=== PATIENT | female | born 1945 | race Caucasian/White ===

== ENCOUNTER 2019-12-06 19:03 | Emergency (ER) | payer MEDICARE, MEDICAID, SELFPAY ==
[2019-12-06 19:18] VITALS: BP 144/81; PULSE 70; RESP 16; TEMP 37.3; O2SAT 97; BMI 28.3
--- NOTE | 2019-12-06 20:05 | XR_ITS ---
EXAMINATION: XR KNEE, LEFT CLINICAL INFORMATION: Left knee pain and swelling COMPARISON: None TECHNIQUE: Four views of the left knee. FINDINGS: There is a large joint effusion. Normal alignment with no fracture. Medial compartment narrowing with small marginal osteophytes. Small marginal osteophytes also in the patellofemoral and lateral compartment. IMPRESSION: Moderate medial and mild patellofemoral/lateral compartment osteoarthritis with a large joint effusion. No acute osseous abnormality.
--- NOTE | 2019-12-06 20:45 | ED.LOWEXIN ---
HPI - Extremity Injury (Lower) General Chief Complaint: Extremity Injury, Lower Stated Complaint: Knee Pain Time Seen by Provider: 12/06/19 20:05 Source: patient Mode of arrival: ambulatory History of Present Illness HPI Narrative: 74-year-old female with a past medical history of arthritis, diabetes, hypertension complaining of acute on chronic left knee pain worsening since yesterday. Reports while ambulating yesterday felt crack. Admits to falling 2 months ago, however denies more recent falls/trauma. Reports associated tingling down leg. Denies fever, chills, weakness, inability to ambulate MD complaint: knee injury Related Data Allergies Allergy/AdvReac Type Severity Reaction Status Date / Time No Known Allergies Allergy Unverified 11/12/19 15:04 Review of Systems Review of Systems: Yes all other systems are reviewed and are negative Constitutional: Constitutional: Reports as per HPI, Denies chills and Denies fever(s) Musculoskeletal: Musculoskeletal: Reports no additional musculoskeletal complaints, Reports as per HPI, Denies deformity, Reports arthralgias, Reports joint swelling, Denies numbness, Reports stiffness and Reports tingling Integumentary/Breasts: Skin/Breast: Reports system reviewed and no additional complaints, except as docu, Reports as per HPI, Denies rash and Denies wounds Neurologic: Reports system reviewed and no additional complaints, except as documented, Reports as per HPI, Denies numbness and Reports tingling PMFSH Past Medical History Attestation statement: The following information was validated with the patient. Medical History (Updated 12/06/19 @ 20:56 by PATRICK Velázquez) Arthritis Diabetes HTN (hypertension) Surgical History (Updated 12/06/19 @ 19:21 by Cherise Boland) History of cholecystectomy Social History Social History Alcohol intake: never Smoked in Last 30 Days: No Use of substances other than those prescribed or required for medical reasons: No Advance Directives: No Advance Directives Information Provided: No Physical Exam Vital Signs: Vital Signs: Vital Signs Temp Pulse Resp BP Pulse Ox 12/06/19 19:18 99.1 F 70 16 144/81 H 97 Body Mass Index 28.3 Const: General: cooperative and healthy appearing Orientation/consciousness: patient oriented x3 Limitations: no limitations HENMT: Head: Yes normal to inspection Ears: hearing grossly normal bilaterally General nose exam: Normal external nose present Face and sinus: Yes normal facial exam Eyes: General: appearance normal, both eyes and all related structures EOM: EOMs intact bilaterally Neck: Neck: Yes normal visual inspection Resp: Effort & Inspection: normal respiratory effort Cardio: Peripheral pulses: Peripheral pulses 2+ throughout Skin: Rashes: no rashes Wounds: no wounds Neuro: General: patient oriented x3 Extrem: Other: left knee with swelling and tenderness to palpation. Decreased ROM secondary to pain. NVintact. No deformity. Ambulating at baseline with cane Course Course Course Narrative: - x-ray showing moderate medial and mild patellofemoral / lateral compartment osteoarthritis with a large joint effusion. No osseous abnormality>> patient placed in Derrick wrap in the ED to follow-up with orthopedics MDM - Extremity Injury (Lower) MDM Narrative Medical decision making narrative: likely osteoarthritis/ligamental /tendon injury. Low concern for septic joint/arthritis or fracture Medical Records Attestation: I reviewed the patient's medical records. Discharge Plan Discharge Clinical Impression: Osteoarthritis Qualifiers: Osteoarthritis location: knee Osteoarthritis type: unspecified Laterality: left Qualified Code(s): M17.12 - Unilateral primary osteoarthritis, left knee Joint effusion of knee Qualifiers: Laterality: left Qualified Code(s): M25.462 - Effusion, left knee Patient Disposition: Home, Self-Care Instructions: Osteoarthritis (ED), Swollen Knee Joint (ED) Additional Instructions: your x-ray showed osteoarthritis as well as a large joint effusion Wear Derrick wrap at home as needed for comfort /debility Ice and elevate your knee Take Tylenol and Motrin, in addition continue taking tramadol You need to follow-up with the senior procurement specialist possibly for cortisone injections/you may need an MRI down the road If symptoms persist or worsen, your unable to ambulate, or have weakness, or fall return to the ED Referrals: Marek Zheng MD [Physician] - 1 week Print Language: Vietnamese
== END 2019-12-06 21:06 | disposition home or self-care (01) ==
PROVIDERS: Emergency Provider Emergency Medicine Emergency Medical Services; PCP Internal Medicine Geriatric Medicine
DX: M17.12 Unilateral primary osteoarthritis, left knee (principal); M25.462 Effusion, left knee; E11.9 Type 2 diabetes mellitus without complications; I10 Essential (primary) hypertension
CPT/HCPCS: 73562; 99283; 99284

== ENCOUNTER 2019-12-28 12:15 | Outpatient (REF) | payer MEDICARE, MEDICAID, SELFPAY ==
--- NOTE | 2019-12-28 12:22 | XR_ITS ---
EXAMINATION: XR LUMBOSACRAL SPINE WITH OBLIQUES CLINICAL INFORMATION: Pain COMPARISON: Previous exams most recent April 2016 TECHNIQUE: AP, both oblique, and lateral views of the lumbar spine. Lateral view of the lumbosacral junction. FINDINGS: There is a 7 mm anterior subluxation of L4 with respect L5. This is unchanged. Bone alignment is otherwise normal. No fracture or dislocation is seen. There is degenerative disc disease at L5-S1. There is multilevel degenerative spondylosis. There is a severe lower lumbar spine facet arthritis. There are multiple vascular soft tissue calcifications in the pelvis. XR/XR lumbar spine 4V min IMPRESSION: Stable mild anterior subluxation of L4 with respect L5 and degenerative changes.
== END 2019-12-28 12:16 | disposition home or self-care (01) ==
LOC: HO.XRAY 12:15
PROVIDERS: Visit Provider Internal Medicine Geriatric Medicine
DX: G89.29 Other chronic pain (principal); M54.5 Low back pain
CPT/HCPCS: 72110

== ENCOUNTER 2020-01-19 15:43 | Outpatient (REF) | payer MEDICARE, MEDICAID, SELFPAY ==
--- NOTE | 2020-01-19 | MM_ITS ---
EXAMINATION: MM SCREENING DIGITAL BREAST TOMOSYNTHESIS, BILATERAL CLINICAL INFORMATION: Screening. Asymptomatic. The lifetime risk of breast cancer based on the Tyrer-Cuzick Model is 5.7%. COMPARISON: Mammography: August 11, 2018 and studies dating back to April 23, 2011 TECHNIQUE: Digital breast tomosynthesis is performed in both the craniocaudal and mediolateral oblique views along with computer-aided detection (CAD). Synthesized 2D images are generated from the tomosynthesis. FINDINGS: There are scattered areas of fibroglandular density (ACR BI-RADS breast composition Category b). There are no significant masses, abnormal calcifications, or other abnormalities. MM/MM tomosynthesis screening BI IMPRESSION: There are no significant changes from prior study. ASSESSMENT: BI-RADS 1: Negative RECOMMENDATION: Routine annual mammography screening. This patient's information was entered into a reminder system with a target due date for their next mammogram.
== END 2020-01-19 15:44 | disposition home or self-care (01) ==
LOC: HO.MAMMO 15:43
PROVIDERS: PCP Internal Medicine Geriatric Medicine; Visit Provider Internal Medicine Geriatric Medicine
DX: Z12.31 Encounter for screening mammogram for malignant neoplasm of breast (principal)
CPT/HCPCS: 77063; 77067

== ENCOUNTER 2020-05-04 14:55 | Emergency (ER) | payer MEDICARE, MEDICAID, SELFPAY ==
--- NOTE | ~2020-05-04 | XR_ITS ---
EXAMINATION: XR HAND WRIST, RIGHT CLINICAL INFORMATION: Fall, trauma, pain COMPARISON: None TECHNIQUE: Right hand and wrist are imaged together in 3 large [id number] images. A navicular view of the wrist is also included. There are a total of 4 views. FINDINGS: The fingers are mildly flexed on the AP and oblique views and superimposed on the lateral view limiting assessment. There is no visible fracture or dislocation. The ulnar variance is neutral. There are mild degenerative changes lateral carpus at triscaphe joint. The MCP joints are unremarkable. There are degenerative changes of the PIP and DIP joints with spurring and periarticular corticated ossicles. XR/XR hand wrist RT IMPRESSION: 1. No visible fracture or dislocation. The digits are superimposed limiting assessment. 2. Degenerative changes PIP and DIP joints. Mild degenerative changes lateral carpus.
[2020-05-04 15:35] VITALS: BP 122/70; BP 211/77; PULSE 70; PULSE 72; RESP 18; TEMP 36.9; O2SAT 96; BMI 29.2
--- NOTE | 2020-05-04 15:46 | ED.FALL ---
HPI - Fall General Stated Complaint: hand pain s/p fall Time Seen by Provider: 05/04/20 15:36 Source: patient, EMS and geodetic computator Mode of arrival: EMS Limitations: language barrier History of Present Illness HPI Narrative: 75-year-old female with a past medical history of arthritis, diabetes, hypertension here with complaints of right hand pain status post fall. The patient tells me that she had [place] catching herself with her right hand and right breast. Denies hitting her head or loss of consciousness. She does not she had an abrasion to the bottom part of her right hand for this morning when she woke up she had increased pain over the hand with redness and swelling. Seen at urgent care referred to the emergency department for x-rays. Patient also notes some bruising over the right breast with some mild tenderness. No chest pain, shortness of breath, cough. No headache, neck pain, back pain, vision changes, nausea, vomiting. Related Data Previous Rx's Medication Instructions Recorded doxycycline monohydrate 100 mg PO BID #14 cap 05/04/20 tramadol 50 mg PO Q8H PRN #10 tab 05/04/20 Allergies Allergy/AdvReac Type Severity Reaction Status Date / Time No Known Allergies Allergy Unverified 11/12/19 15:04 Review of Systems Review of Systems: Yes all other systems are reviewed and are negative Constitutional: Constitutional: Reports no additional constitutional complaints, Denies body ache(s), Denies chills, Denies fever(s), Denies headache(s) and Denies weakness Eyes: Eyes: Reports no additional eye complaints and Denies change in vision ENT: Reports system reviewed and no additional complaints, except as documented, Denies dizziness, Denies headache(s), Denies nasal congestion, Denies nasal discharge and Denies neck pain Cardiovascular: Cardiovascular: Reports no additional cardiovascular complaints, Denies chest pain, Denies leg edema and Denies dyspnea Respiratory: Respiratory: Reports no additional respiratory complaints, Denies cough and Denies dyspnea Gastrointestinal: Gastrointestinal: Reports no additional gastrointestinal complaints, Denies abdominal pain, Denies diarrhea, Denies nausea and Denies vomiting Genitourinary: Genitourinary: Reports no additional female genitourinary complaints and Denies urinary incontinence Musculoskeletal: Musculoskeletal: Reports no additional musculoskeletal complaints, Denies back pain, Reports arthralgias, Reports joint swelling, Denies neck pain, Denies numbness and Denies tingling Integumentary/Breasts: Skin/Breast: Reports system reviewed and no additional complaints, except as docu, Reports swelling, Reports erythema and Denies rash Neurologic: Reports system reviewed and no additional complaints, except as documented, Denies Abnormal speech present, Denies dizziness, Denies headache(s), Denies numbness, Denies tingling and Denies weakness PMFSH Past Medical History Attestation statement: The following information was validated with the patient. Source: old records reviewed and nursing notes reviewed Medical History Arthritis Diabetes HTN (hypertension) Primary osteoarthritis of knees, bilateral Surgical History History of cholecystectomy History of hysterectomy Social History Social History Alcohol intake: never Advance Directives: No Advance Directives Information Provided: Yes Physical Exam Vital Signs: Vital Signs: Last Vital Signs Temp 98.5 F 05/04/20 15:35 Pulse 72 05/04/20 15:35 Resp 18 05/04/20 15:35 BP 211/77 H 05/04/20 15:35 Pulse Ox 96 05/04/20 15:35 Body Mass Index 29.2 Const: General: cooperative, healthy appearing, comfortable and no acute distress Orientation/consciousness: patient oriented x3 Limitations: no limitations HENMT: Head: Yes normal to inspection Ears: hearing grossly normal bilaterally General nose exam: Normal external nose present Face and sinus: Yes normal facial exam Mouth: Normal oral and palatal mucosa present Throat: Yes posterior oropharynx normal Eyes: General: appearance normal, both eyes and all related structures Pupils: Equal, round and reactive pupils present Neck: Neck: Yes normal visual inspection Chest: Chest palpation & inspection: normal inspection of the chest Chest/axillae images: 1. Small area of ecchymosis with no palpable tenderness or no bony chest abnormality Resp: Effort & Inspection: normal respiratory effort Auscultation: clear to auscultation bilaterally Cardio: Rate: regular rate Rhythm: regular rhythm Peripheral pulses: Peripheral pulses 2+ throughout GI: Inspection: Yes normal to inspection Palpation (GI): Soft to palpation and nontender Auscultation: normal bowel sounds Back/Spine/Pelvis: Thoracic/Lumbar Spine: thoracic and lumbar spine normal to inspection Skin: General skin exam: no rashes or lesions noted Neuro: General: patient oriented x3, no focal motor deficits and normal sensation to monofilament Cranial nerves: Yes Equal, round and reactive pupils present Cognition (Neuro): normal cognition Speech: No Abnormal speech present Gait exam (Neuro): Normal gait present Motor exam (neuro): 5/5 motor strength present throughout Extrem: Other: Patient has an abrasion on the volar aspect of the right hand which is very small. She has erythema and swelling over the dorsal aspect of the hand. Pain with flexion and extension of the wrist but patient is able. Neurovascularly intact distally. General: Yes normal to inspection Course Course Course Narrative: 75-year-old female here with right hand pain status post mechanical fall yesterday. On arrival the patient has some tenderness and swelling over the wrist and dorsal hand with erythema over the dorsal aspect of the hand. There is also some warmth of the abrasion on the volar aspect. Full range of motion. Neurovascular intact distally. Will check imaging. Recommended tetanus but the patient declined. 1730-x-rays show no acute bony abnormality. Likely wrist plain with cellulitis. Will start patient on oral antibiotics. Asymptomatic HTN. Reviewed worrisome signs and symptoms with the patient through the fitness center attendant and when to return to the emergency department. Comfortable discharge home. Procedures Procedure Narrative Procedure Narrative: Wrist splint right wrist MDM - Fall Medical Records Attestation: I reviewed the patient's medical records. Lab Data Attestation: I reviewed the patient's lab results. Imaging Data Wrist x-ray right: Attestation: I personally reviewed and interpreted this imaging study as follows: Radiologist's impression: No visible fracture or dislocation. The digits are superimposed limiting assessment. 2. Degenerative changes PIP and DIP joints. Mild degenerative changes lateral carpus. Discharge Plan Discharge Clinical Impression: Sprain of wrist Cellulitis Qualifiers: Site of cellulitis: extremity Site of cellulitis of extremity: upper extremity Laterality: right Qualified Code(s): L03.113 - Cellulitis of right upper limb Patient Disposition: Home, Self-Care Instructions: Cellulitis (ED), Wrist Sprain (ED) Additional Instructions: ice, elevation wrist splint for comfort Prescriptions: New doxycycline monohydrate 100 mg capsule 100 mg PO BID Qty: 14 RF: 0 tramadol 50 mg tablet 50 mg PO Q8H PRN (Reason: pain) Qty: 10 RF: 0 Referrals: Hill Dickson MD [Primary Care Provider] - 2 days Interventions: ED Discharge Assessment Last Done: 05/04/20 17:04 Print Language: [place]
[2020-05-04] MEDS: Acetaminophen 325 MG TABLET 975 MG PO (16:13)
== END 2020-05-04 17:00 | disposition home or self-care (01) ==
PROVIDERS: Emergency Provider Emergency Medicine Emergency Medical Services; PCP Internal Medicine Geriatric Medicine
DX: S63.501A Unspecified sprain of right wrist, initial encounter (principal); L03.113 Cellulitis of right upper limb; M25.531 Pain in right wrist; S60.512A Abrasion of left hand, initial encounter; S60.511A Abrasion of right hand, initial encounter; I10 Essential (primary) hypertension; W01.0XXA Fall on same level from slipping, tripping and stumbling without subsequent striking against object, initial encounter; Y93.9 Activity, unspecified; Y92.59 Other trade areas as the place of occurrence of the external cause; Y99.9 Unspecified external cause status; Z79.899 Other long term (current) drug therapy
CPT/HCPCS: 29125; 73110; 73130; 99282; 99283

== ENCOUNTER → 2020-05-25 14:42 | Outpatient (BNVA) | payer MEDICARE, MEDICAID, SELFPAY | PROVIDERS: PCP Internal Medicine Geriatric Medicine; Visit Provider Anesthesiology | DX: M53.3 Sacrococcygeal disorders, not elsewhere classified (principal); M46.1 Sacroiliitis, not elsewhere classified; M54.5 Low back pain; Z79.899 Other long term (current) drug therapy | CPT/HCPCS: 99202 ==

== ENCOUNTER 2020-06-10 13:42 | Outpatient (REF) | payer MEDICARE, MEDICAID, SELFPAY ==
--- NOTE | ~2020-06-10 | MM_ITS ---
EXAMINATION: MM DIAGNOSTIC DIGITAL BREAST TOMOSYNTHESIS, RIGHT US DIAGNOSTIC ULTRASOUND BREAST, RIGHT CLINICAL INFORMATION: Right breast pain. Recent trauma from fall with ecchymosis medial right breast. Ecchymosis decreased since injury. Remote history reduction mammoplasty 10-11 years ago. The lifetime risk of breast cancer based on the Tyrer-Cuzick Model is 5%. COMPARISON: Mammography: 01/19/2020; outside mammography 08/11/2018, 08/08/2017 ([place]) TECHNIQUE: Digital breast tomosynthesis is performed in both the craniocaudal and mediolateral oblique views along with computer-aided detection (CAD). Synthesized 2D images are generated from the tomosynthesis. Ultrasound right breast is targeted to the area of clinical concern medial breast 3:00 to 6:00 position. Grayscale imaging and color Doppler are performed without and with harmonics. FINDINGS: There are scattered areas of fibroglandular density (ACR BI-RADS breast composition Category b). The breast parenchymal pattern is similar to prior studies. There is no interval mass or asymmetric density or abnormal calcifications. No skin thickening or coarsening of the Benjamín's ligaments. Tomography demonstrates some small oil cysts in the medial right breast consistent with benign sequela from prior injury. Ultrasound right breast demonstrates no solid mass or architectural abnormality. There are scattered small simple cysts in the targeted area, largest measuring 0.9 x 0.4 cm. These correspond to the fat attenuation oil cysts noted on tomography. No skin thickening or edema tracking in the soft tissue planes. Results are discussed with the patient at time of visit, using an industrial maintenance manager. MM/MM tomosynthesis diagnostic RT IMPRESSION: 1. No mammographic or ultrasound evidence of malignancy. 2. There are scattered small benign oil cysts in the medial breast corresponding to sequela from prior injury. ASSESSMENT: BI-RADS 2: Benign RECOMMENDATION: 1. Patient should be managed based on the clinical impression. If clinically indicated, further evaluation may be considered with surgical consult. Decision to proceed with biopsy should be based on clinical grounds and degree of clinical concern. 2. Otherwise, routine annual screening mammography. This patient's information was entered into a reminder system with a target due date for their next mammogram.
== END 2020-06-10 13:43 | disposition home or self-care (01) ==
LOC: HO.MAMMO 13:42
PROVIDERS: PCP Internal Medicine Geriatric Medicine; Visit Provider Emergency Medicine
DX: N64.4 Mastodynia (principal); S20.02XS Contusion of left breast, sequela
CPT/HCPCS: 76642; 77061; 77065

== ENCOUNTER 2020-07-05 06:22 | Outpatient (REF) | payer MEDICARE, MEDICAID, SELFPAY ==
--- NOTE | ~2020-07-05 | FL_ITS ---
EXAMINATION: XR FLUOROSCOPY WITH IMAGES CLINICAL INFORMATION: M53.3 - Sacrococcygeal disorders COMPARISON: Radiographs lumbar spine 12/28/2019 TECHNIQUE: Fluoroscopy performed by Hanane Jones NP. Fluoroscopy time: 0.2 minutes DAP: 2.38 Gycm2 Images: 2 FINDINGS: There are spinal needles overlying the bilateral lower SI joints. There is contrast in the para-articular soft tissues as well as probable early intra-articular contrast. FL/FL guidance in treatment room IMPRESSION: Fluoroscopy for pain management procedures.
== END 2020-07-05 06:23 | disposition home or self-care (01) ==
LOC: HO.RADIR 06:22
PROVIDERS: Visit Provider Anesthesiology
DX: M54.5 Low back pain (principal); M46.1 Sacroiliitis, not elsewhere classified; M53.3 Sacrococcygeal disorders, not elsewhere classified; M17.0 Bilateral primary osteoarthritis of knee; E11.9 Type 2 diabetes mellitus without complications; I10 Essential (primary) hypertension
CPT/HCPCS: 27096; J3300; Q9967

== ENCOUNTER → 2020-08-18 14:35 | Outpatient (BNVA) | payer MEDICARE, MEDICAID, SELFPAY | PROVIDERS: PCP Internal Medicine Geriatric Medicine; Visit Provider Anesthesiology | DX: M54.5 Low back pain (principal); M46.1 Sacroiliitis, not elsewhere classified; M53.3 Sacrococcygeal disorders, not elsewhere classified | CPT/HCPCS: 99212 ==

== ENCOUNTER 2021-02-10 13:11 | Outpatient (REF) | payer MEDICARE, MEDICAID, SELFPAY ==
[2021-02-10 14:16] LABS: Anion Gap 12 (12-20); Blood Urea Nitrogen 22 mg/dL (9-16); Calcium 9.9 mg/dL (8.4-10.2); Carbon Dioxide 29 mmol/L (22-29); Chloride 103 mmol/L (96-108); Estimated Glomerular Filt Rate > 60; Glucose Random 99 mg/dL (60-115); Potassium 4.9 mmol/L (3.3-5.1); Sodium 139 mmol/L (135-145)
[2021-02-10 14:39] LABS: Thyroid Stimulating Hormone 1.11 uIU/mL (0.32-4.0)
[2021-02-10 14:53] LABS: Folate 16.1 ng/mL (> or = 4.0); Vitamin B12 519 pg/mL (200-900)
== END 2021-02-10 13:12 | disposition home or self-care (01) ==
LOC: HO.LAB 13:11
PROVIDERS: PCP Internal Medicine Geriatric Medicine; Visit Provider Psychiatry & Neurology Neurology
DX: G31.84 Mild cognitive impairment of uncertain or unknown etiology (principal)
CPT/HCPCS: 36415; 80048; 82607; 82746; 84443

== ENCOUNTER 2021-06-12 13:41 | Outpatient (REF) | payer MEDICARE, MEDICAID, SELFPAY ==
--- NOTE | ~2021-06-12 | MM_ITS ---
EXAMINATION: MM SCREENING DIGITAL BREAST TOMOSYNTHESIS, BILATERAL CLINICAL INFORMATION: Screening. Asymptomatic. Family history postmenopausal breast cancer, mother and sister. Prior history reduction mammoplasty over 10 years ago. The lifetime risk of breast cancer based on the Tyrer-Cuzick Model is 5%. COMPARISON: Mammography: 06/10/2020, 01/19/2020, outside mammography 08/11/2018, 08/08/2017, 08/07/2016 ([place]) TECHNIQUE: Digital breast tomosynthesis is performed in both the craniocaudal and mediolateral oblique views along with computer-aided detection (CAD). Synthesized 2D images are generated from the tomosynthesis. FINDINGS: There are scattered areas of fibroglandular density (ACR BI-RADS breast composition Category b). Parenchymal pattern is similar to prior studies. Scattered parenchymal asymmetries including posterior upper left breast are similar to prior studies. There are are benign oil cysts again noted posterior left and anterior medial right breast. There is no interval mass or architectural abnormality. No abnormal calcifications. The axilla and skin contours are unremarkable. MM/MM tomosynthesis screening BI IMPRESSION: No significant changes from prior exams. ASSESSMENT: BI-RADS 2: Benign RECOMMENDATION: Routine annual mammography screening. This patient's information was entered into a reminder system with a target due date for their next mammogram.
== END 2021-06-12 13:42 | disposition home or self-care (01) ==
LOC: HO.MAMMO 13:41
PROVIDERS: Visit Provider Internal Medicine Geriatric Medicine
DX: Z12.31 Encounter for screening mammogram for malignant neoplasm of breast (principal)
CPT/HCPCS: 77063; 77067

== ENCOUNTER 2022-07-02 10:51 | Outpatient (REF) | payer OTHER, SELFPAY ==
--- NOTE | ~2022-07-02 | MM_ITS ---
EXAMINATION: MM SCREENING DIGITAL BREAST TOMOSYNTHESIS, BILATERAL CLINICAL INFORMATION: Screening. Asymptomatic. Prior reduction mammoplasty over 10 years ago. Family history breast cancer, mother and sister. The lifetime risk of breast cancer based on the Tyrer-Cuzick Model is 5%. COMPARISON: Mammography: 06/12/2021, 06/10/2020, 01/19/2020; ultrasound right breast 06/10/2020 TECHNIQUE: Digital breast tomosynthesis is performed in both the craniocaudal and mediolateral oblique views along with computer-aided detection (CAD). Synthesized 2D images are generated from the tomosynthesis. Additional left MLO view is provided. FINDINGS: There are scattered areas of fibroglandular density (ACR BI-RADS breast composition Category b). Parenchymal pattern is similar to prior exams and there is no architectural abnormality or developing density or significant change from prior studies. Again, there is stable nodular asymmetry mid 9:00 left breast. There are some incidental oil cysts some with rim calcifications in the breasts consistent with the prior reduction mammoplasty. There are no significant masses, abnormal calcifications, or other abnormalities. MM/MM tomosynthesis screening BI IMPRESSION: No mammographic evidence of malignancy. ASSESSMENT: BI-RADS 2: Benign RECOMMENDATION: Routine annual mammography screening. This patient's information was entered into a reminder system with a target due date for their next mammogram.
== END 2022-07-02 10:52 | disposition home or self-care (01) ==
LOC: HO.MAMMO 10:51
PROVIDERS: PCP Internal Medicine Geriatric Medicine; Visit Provider Internal Medicine Geriatric Medicine
DX: Z12.31 Encounter for screening mammogram for malignant neoplasm of breast (principal)
CPT/HCPCS: 77063; 77067

== ENCOUNTER 2023-03-07 10:14 | Outpatient (REF) | payer OTHER, SELFPAY ==
--- NOTE | ~2023-03-07 | XR_ITS ---
EXAMINATION: XR LUMBOSACRAL SPINE CLINICAL INFORMATION: Reason for Exam PAIN COMPARISON: Lumbar spine radiographs 12/28/2019 TECHNIQUE: 3 views of the lumbar spine FINDINGS: 5 nonrib-bearing lumbar-type vertebral bodies. Vertebral body heights are maintained. Grade 1 anterolisthesis of L4 on L5. Mild to moderate multilevel degenerative disc disease with loss of disc space height and anterior disc osteophyte complexes similar to 2020. Similar coarse calcifications in the pelvis some of which may reflect phleboliths others of which are nonspecific though unchanged from 2020. Lower lumbosacral facet arthropathy. Atherosclerotic vascular calcification. XR/XR lumbar spine 2-3V IMPRESSION: 1. Grade 1 anterolisthesis of L4 on L5. 2. Mild to moderate multilevel degenerative disc disease similar to 2020.
== END 2023-03-07 10:15 | disposition home or self-care (01) ==
LOC: HO.HHCX 10:14
PROVIDERS: Visit Provider Internal Medicine Geriatric Medicine
DX: M54.50 Low back pain, unspecified (principal); G89.29 Other chronic pain
CPT/HCPCS: 72100

== ENCOUNTER 2023-03-29 08:34 | Outpatient (REF) | payer OTHER, SELFPAY ==
[2023-03-29 12:21] LABS: Anion Gap 15 (12-20); Blood Urea Nitrogen 19 mg/dL (9-16); Calcium 9.2 mg/dL (8.4-10.2); Carbon Dioxide 25 mmol/L (22-29); Chloride 103 mmol/L (96-108); Estimated Glomerular Filt Rate > 60; Glucose Random 120 mg/dL (60-115); Potassium 4.4 mmol/L (3.3-5.1); Sodium 139 mmol/L (135-145)
== END 2023-03-29 08:35 | disposition home or self-care (01) ==
LOC: HO.HHCL 08:34
PROVIDERS: Visit Provider Internal Medicine Geriatric Medicine
DX: E11.69 Type 2 diabetes mellitus with other specified complication (principal)
CPT/HCPCS: 36415; 80048

== ENCOUNTER 2023-05-09 16:07 | Outpatient (REF) | payer OTHER, SELFPAY ==
--- NOTE | ~2023-05-09 | XR_ITS ---
EXAMINATION: XR FOOT, RIGHT CLINICAL INFORMATION: Pain of right foot for 2-3 weeks. COMPARISON: None available. TECHNIQUE: 3 views of the right foot. FINDINGS: Bones have normal alignment throughout the foot. No fracture or subluxation. Moderate enthesophyte formation of the calcaneus at sites of attachment of the Achilles tendon and plantar aponeurosis. Also, there are two small foci of calcification in the region of the plantar aponeurosis, possibly a manifestation of chronic plantar fasciopathy. Two ossification centers are seen at the os peroneum. At the great toe MTP joint, there is moderate loss of the joint space, osteophyte formation and medial capsular calcification. Mild osteoarthritis noted at a few interphalangeal joints. No erosions. XR/XR foot RT min 3V IMPRESSION: * No acute abnormalities within the right foot. * Moderate osteoarthritis of the great toe metatarsophalangeal joint. * There are calcaneal enthesophytes.
== END 2023-05-09 16:08 | disposition home or self-care (01) ==
LOC: HO.HHCX 16:07
PROVIDERS: Visit Provider Internal Medicine Geriatric Medicine
DX: M79.671 Pain in right foot (principal)
CPT/HCPCS: 73630

== ENCOUNTER 2023-08-01 10:20 | Outpatient (REF) | payer OTHER, SELFPAY ==
--- NOTE | ~2023-08-01 | MM_ITS ---
EXAMINATION: BONE DENSITOMETRY CLINICAL INDICATION: Postmenopausal osteoporosis. COMPARISON: Previous BD dated 08/09/2017 and baseline BD dated 12/22/2007. TECHNIQUE: Using a [employer] DXA System (software version: 13.1) manufactured by [email or web address], dual-energy x-ray absorptiometry was performed of the lumbar spine and left hip. The images are of good technical quality. Summary results are attached. FINDINGS: LEFT FEMUR, NECK: Current: BMD 0.978 g/cm2, Z-score 1.3, T-score -0.4, normal. Prior: BMD 1.016 g/cm2. Baseline: BMD 1.047 g/cm2. LEFT FEMUR, TOTAL: Current: BMD 1.035 g/cm2, Z-score 1.7, T-score 0.2, normal, 5.6% decrease from previous, 11.3% decrease from baseline (<5% change is not significant). Prior: BMD 1.096 g/cm2. Baseline: BMD 1.167 g/cm2. AP SPINE L1-L4: Current: BMD 1.246 g/cm2, Z-score 1.9, T-score 0.5, normal, 3.7% increase from previous, 11.7% increase from baseline (<5% change is not significant). Prior: BMD 1.201 g/cm2. Baseline: BMD 1.115 g/cm2. IDENTIFIED RISK FACTORS: Early menopause, secondary osteoporosis, hysterectomy, left oophorectomy, recurrent falls. HISTORY OF FRACTURE: None listed. MEDICATIONS: Calcium supplements or multivitamin, vitamin D. MM/XR DEXA axial skeleton IMPRESSION: 1. DIAGNOSIS: Normal bone density based on the lowest T-score value of -0.4 in the femoral neck applying World Health Organization criteria. 2. 10-YEAR FRACTURE RISK PREDICTION, FRAX: According to the guidelines, FRAX calculation should only be performed on patients in the osteopenia bone density category. Therefore, FRAX was not performed on this patient. 3. Treatment Recommendations: NOF guidelines recommend consideration for treatment in postmenopausal women and men age 50 and older presenting with the following: -A hip or vertebral (clinical or morphometric) fracture. -T-score less than or equal to -2.5 at the femoral neck or spine after appropriate evaluation to exclude secondary causes. -Low bone mass at the hip or spine and a 10-year fracture probability by FRAX of greater than or equal to 3% for hip fracture or greater than or equal to 20% for major osteoporotic fracture based on the [place] adapted WHO algorithm. 4. Other Recommendations: All treatment decisions require clinical judgment and consideration of individual patient factors, including patient preferences, comorbidities, previous drug use, risk factors not captured in the FRAX model (e.g. frailty, falls, vitamin D deficiency, increased bone turnover, interval significant decline in bone density) and possible under or overestimation of fracture risk by FRAX. FUTURE SCAN RECOMMENDATION: People with diagnosed cases of osteoporosis or at high risk for fracture should have regular bone mineral density tests. For patients eligible for Medicare, routine testing is allowed once every 2 years. The testing frequency can be increased to one year for patients who have rapidly progressing disease, those who are receiving or discontinuing medical therapy to restore bone mass, or have additional risk factors.
== END 2023-08-01 10:21 | disposition home or self-care (01) ==
LOC: HO.MAMMO 10:20
PROVIDERS: PCP Internal Medicine Geriatric Medicine; Visit Provider Internal Medicine Geriatric Medicine
DX: Z12.31 Encounter for screening mammogram for malignant neoplasm of breast (principal); Z13.820 Encounter for screening for osteoporosis; Z78.0 Asymptomatic menopausal state; M81.0 Age-related osteoporosis without current pathological fracture
CPT/HCPCS: 77063; 77067; 77080

== ENCOUNTER → 2023-08-01 11:30 | Outpatient (BNV) | payer OTHER, SELFPAY | PROVIDERS: PCP Internal Medicine Geriatric Medicine; Visit Provider Radiology Diagnostic Radiology | DX: Z12.31 Encounter for screening mammogram for malignant neoplasm of breast (principal) | CPT/HCPCS: 77063; 77067 ==

== ENCOUNTER 2023-09-09 08:39 | Outpatient (REF) | payer OTHER, SELFPAY ==
[2023-09-09 11:55] LABS: Cholesterol 190 mg/dL (<200); HDL Cholesterol 65 mg/dL (>40); LDL Cholesterol Calculated 102 mg/dL (<100); Triglycerides 119 mg/dL (<150)
[2023-09-09 12:07] LABS: Creatinine Urine 75.51 mg/dL; Microalbum/Creatinine Ratio Ur 9.2 ug/mg cr (<30)
== END 2023-09-09 08:40 | disposition home or self-care (01) ==
LOC: HO.HHCL 08:39
PROVIDERS: Visit Provider Internal Medicine Geriatric Medicine
DX: E11.69 Type 2 diabetes mellitus with other specified complication (principal)
CPT/HCPCS: 36415; 80061; 82043; 82570

== ENCOUNTER 2023-11-18 07:59 | Outpatient (REF) | payer OTHER, SELFPAY ==
--- NOTE | ~2023-11-18 | XR_ITS ---
EXAMINATION: XR LEFT SHOULDER XR LEFT HIP CLINICAL INFORMATION: Left hip and shoulder pain status post fall. COMPARISON: None available. TECHNIQUE: 2 views of the left hip were obtained. 4 views of the left shoulder were obtained. FINDINGS: Left shoulder: Acromioclavicular joint is intact. There is soft tissue calcification projecting superiorly to the acromioclavicular joint. Moderate glenohumeral joint space narrowing. No displaced fracture or dislocation. Left hip: Mild superior joint space narrowing with hypertrophic lipping. No displaced fracture or dislocation. There is enthesopathy of the greater trochanter. Parasymphyseal sclerosis. Numerous pelvic phleboliths. 3 cm ovoid calcification projecting over the left hemipelvis. XR/XR shoulder LT min 2V IMPRESSION: No acute abnormality. Electronically signed by: Kennedy Byers MD 11/18/2023 04:39 PM EDT
--- NOTE | ~2023-11-18 | XR_ITS ---
EXAMINATION: XR LEFT SHOULDER XR LEFT HIP CLINICAL INFORMATION: Left hip and shoulder pain status post fall. COMPARISON: None available. TECHNIQUE: 2 views of the left hip were obtained. 4 views of the left shoulder were obtained. FINDINGS: Left shoulder: Acromioclavicular joint is intact. There is soft tissue calcification projecting superiorly to the acromioclavicular joint. Moderate glenohumeral joint space narrowing. No displaced fracture or dislocation. Left hip: Mild superior joint space narrowing with hypertrophic lipping. No displaced fracture or dislocation. There is enthesopathy of the greater trochanter. Parasymphyseal sclerosis. Numerous pelvic phleboliths. 3 cm ovoid calcification projecting over the left hemipelvis. XR/XR hip LT min 2V IMPRESSION: No acute abnormality. Electronically signed by: Kennedy Byers MD 11/18/2023 04:39 PM EDT
[2023-11-18 12:03] LABS: Anion Gap 13 (12-20); Blood Urea Nitrogen 19 mg/dL (9-16); Calcium 9.6 mg/dL (8.4-10.2); Carbon Dioxide 28 mmol/L (22-29); Chloride 104 mmol/L (96-108); Estimated Glomerular Filt Rate > 60; Glucose Random 101 mg/dL (60-115); Potassium 4.4 mmol/L (3.3-5.1); Sodium 141 mmol/L (135-145)
== END 2023-11-18 08:00 | disposition home or self-care (01) ==
LOC: HO.HHCL 07:59
PROVIDERS: Visit Provider Internal Medicine Geriatric Medicine
DX: E11.69 Type 2 diabetes mellitus with other specified complication (principal); M25.552 Pain in left hip; G89.29 Other chronic pain; S40.012A Contusion of left shoulder, initial encounter
CPT/HCPCS: 36415; 73030; 73502; 80048

== ENCOUNTER 2023-12-26 16:08 | Outpatient (REF) | payer OTHER, SELFPAY ==
--- NOTE | ~2023-12-26 | XR_ITS ---
EXAMINATION: XR HIP, RIGHT CLINICAL INFORMATION: Right hip pain atraumatic COMPARISON: None available. TECHNIQUE: Two views of the right hip. FINDINGS: Hip joint space normal. Surrounding bone normal. Incidental note made of degenerative changes of the symphysis pubis. XR/XR hip RT min 2V IMPRESSION: 1. Normal right hip. 2. Degenerative changes of the symphysis pubis. Electronically signed by: Quang John MD 12/26/2023 05:18 PM EDT
== END 2023-12-26 16:09 | disposition home or self-care (01) ==
LOC: HO.HHCX 16:08
PROVIDERS: Visit Provider Emergency Medicine
DX: M25.551 Pain in right hip (principal)
CPT/HCPCS: 73502

== ENCOUNTER 2024-02-10 14:25 | Outpatient (AMB) | payer OTHER, SELFPAY ==
--- NOTE | 2024-02-10 14:37 | MHC.OFFVIS ---
Vital Signs 02/10/24 14:39 Height 5 ft Weight 163 lb BMI 31.8 BP 180/82 H Blood Pressure Location Lt brachial Position Sitting Respiration 15 Pulse 71 Pulse Source Pulse Oximeter Pulse Oximetry (%) 95 Oxygen Delivery Method Room Air Intake Visit Reasons: Chronic right side low back pain Regulatory Submissions Specialist Required: Yes Regulatory Submissions Specialist Name: [id number] Blily Allergies No Known Allergies Allergy (Verified 02/10/24 14:41) Medication List - Last Reconciled 02/10/24 by Vandana Lott LPN amitriptyline 75 mg PO BEDTIME doxycycline monohydrate 100 mg PO BID lisinopril 2.5 mg PO DAILY melatonin 5 mg PO BEDTIME PRN metformin 500 mg PO BID pravastatin 10 mg PO DAILY tramadol 50 mg PO Q8H PRN HPI Comments Details: Azeb is very pleasant 78 years old female who presents today in my office with complains on pain in the lower back on the right and pain in bilateral knees. More than 3 years ago she was in this office with complains on pain in bilateral lower back pain. Received therapeutic sacroiliac joint injection with 2 months of the pain relief. However when I offered her today the repeat of the procedure she reported that most of the pain she experienced today his pain in bilateral knees. She denied any images of her knees and she admitted that a development rep performed steroid injections into her bilateral knees. She does not remember the name or address of the doctor. I will send her for x-ray of bilateral knees, I will also send the medical information release note to the office of the development rep when patient will call us and submit the name of the development rep to us. She also reported to me that she went for emergency room and she was prescribed medications which helps her pain a lot. I recommended her to go to primary care physician and request a prescription of this medications for her chronically. [facility] Medical History (Updated 02/10/24 @ 15:08 by Edward Welsh MD) Sacroiliac joint dysfunction Sacroiliitis Low back pain Primary osteoarthritis of knees, bilateral HTN (hypertension) Diabetes Arthritis Surgical History History of hysterectomy History of cholecystectomy Social History Alcohol intake: never Review of Systems Const All systems reviewed & are unremarkable except as noted in HPI and below Neuro Denies Abnormal speech present Physical Exam Vital Signs: Last Vital Signs Pulse 71 02/10/24 14:39 Resp 15 02/10/24 14:39 BP 180/82 H 02/10/24 14:39 Pulse Ox 95 02/10/24 14:39 Oxygen Delivery Method Room Air 02/10/24 14:39 BMI result Body Mass Index 31.8 Const General: cooperative, healthy appearing, comfortable and no acute distress Orientation/consciousness: patient oriented x3 Limitations: no limitations HEENT Head: Yes normal to inspection Ears: hearing grossly normal bilaterally General nose exam: Normal external nose present Face and sinus: Yes normal facial exam Mouth: Normal oral and palatal mucosa present Throat: Yes posterior oropharynx normal Eyes General: appearance normal, both eyes and all related structures Pupils: Equal, round and reactive pupils present Chest Chest palpation & inspection: normal inspection of the chest Resp Effort & Inspection: normal respiratory effort GI Palpation (GI): Soft to palpation and nontender Auscultation: normal bowel sounds Back/Spine/Pelvis Other: Palpation of the paraspinal and spinal region on lumbar spine and sacral bone reveals no tenderness. She is able to flex herself forward and flex herself backwards without any difficulties. Loading test is negative for facet joint pathology. Straight leg rising is negative for a radiculopathy. Axel test and Dheeraj finger test, pelvic compression test and pelvic distraction test positive on the right. Skin General skin exam: no rashes or lesions noted Neuro General: patient oriented x3, no focal motor deficits and normal sensation to monofilament Cranial nerves: Yes Equal, round and reactive pupils present Cognition (Neuro): normal cognition Speech: No Abnormal speech present Gait exam (Neuro): Normal gait present Extrem Other: Limited range of motion of bilateral knees. Tenderness on palpation in bilateral knees. Assessment & Plan Assessment & Plan (1) Low back pain: Code(s): M54.5 - Low back pain Category: Medical (2) Sacroiliitis: Code(s): M46.1 - Sacroiliitis, not elsewhere classified Category: Medical (3) Sacroiliac joint dysfunction: Code(s): M53.3 - Sacrococcygeal disorders, not elsewhere classified Category: Medical (4) Bilateral knee pain: Code(s): M25.561 - Pain in right knee; M25.562 - Pain in left knee Category: Medical (5) Osteoarthritis of knees, bilateral: Code(s): M17.0 - Bilateral primary osteoarthritis of knee Category: Medical Plan Three years ago this patient was in my office with complains of sacroiliitis. It seemed to be bothering her at least moderately at this time as well. However her most attention today was attracted to bilateral osteoarthritis of the both knees. There are evidence of bilateral osteoarthritis, I decided to send her for the bilateral knee x-ray. I will see her in 1 month. One of the development rep in the town was performing injections for her in the knees I suspect that those were intra-articular steroid knee injections. However I need to receive information from that office before I will try to do any other procedures for this patient. She will signed a blank of medical record release note today and later on at her convenience she will call to us in submit the information about name of the doctor and address of the office so we can send a medical information release note to the proper address. Orders: Orders XR knee LT 3V Today M17.0 - Bilateral primary osteoarthritis of knee, M25.561 - Pain in right knee, M25.562 - Pain in left knee XR knee RT 3V Today M17.0 - Bilateral primary osteoarthritis of knee, M25.561 - Pain in right knee, M25.562 - Pain in left knee Coding Level of Care Code New Pt Level 3 (67440) Diagnoses Low back pain M54.5 Sacroiliitis M46.1 Sacroiliac joint dysfunction M53.3 Bilateral knee pain M25.561; M25.562 Osteoarthritis of knees, bilateral M17.0
[2024-02-10 14:39] VITALS: BP 180/82; PULSE 71; RESP 15; O2SAT 95; BMI 31.8
== END 2024-02-10 15:03 | disposition home or self-care (01) ==
PROVIDERS: PCP Internal Medicine Geriatric Medicine; Visit Provider Anesthesiology
DX: M54.50 Low back pain, unspecified (principal); M46.1 Sacroiliitis, not elsewhere classified; M53.3 Sacrococcygeal disorders, not elsewhere classified; M25.561 Pain in right knee; M25.562 Pain in left knee; M17.0 Bilateral primary osteoarthritis of knee
CPT/HCPCS: 99203

== ENCOUNTER → 2024-02-10 14:25 | Outpatient (BNVA) | payer OTHER, SELFPAY | PROVIDERS: PCP Internal Medicine Geriatric Medicine; Visit Provider Anesthesiology | DX: M54.50 Low back pain, unspecified (principal); M17.0 Bilateral primary osteoarthritis of knee; M46.1 Sacroiliitis, not elsewhere classified; M53.3 Sacrococcygeal disorders, not elsewhere classified | CPT/HCPCS: 99202 ==

== ENCOUNTER 2024-02-11 11:43 | Outpatient (REF) | payer OTHER, SELFPAY | END 2024-02-11 11:44 | disposition home or self-care (01) | LOC: HO.XRAY 11:43 | PROVIDERS: PCP Internal Medicine Geriatric Medicine; Visit Provider Anesthesiology | DX: M17.0 Bilateral primary osteoarthritis of knee (principal) | CPT/HCPCS: 73562 ==

== ENCOUNTER → 2024-02-11 11:46 | Outpatient (BNV) | payer OTHER, SELFPAY | PROVIDERS: PCP Internal Medicine Geriatric Medicine; Visit Provider Radiology Diagnostic Radiology | DX: M17.0 Bilateral primary osteoarthritis of knee (principal) | CPT/HCPCS: 73562 ==

== ENCOUNTER 2024-03-09 13:01 | Outpatient (AMB) | payer OTHER, SELFPAY ==
--- NOTE | 2024-03-09 13:10 | MHC.OFFVIS ---
Vital Signs 03/09/24 13:12 Height 5 ft Weight 164 lb BMI 32.0 BP 141/73 H Blood Pressure Location Lt brachial Position Sitting Respiration 15 Pulse 77 Pulse Source Pulse Oximeter Pulse Oximetry (%) 95 Oxygen Delivery Method Room Air Intake Visit Reasons: 1 month FU [employer] Required: Yes [employer] Services: [employer] Present [employer] Name: Radha Allergies No Known Allergies Allergy (Verified 03/09/24 13:29) Medication List - Last Reconciled 03/09/24 by Vandana Lott LPN amitriptyline 75 mg PO BEDTIME doxycycline monohydrate 100 mg PO BID lisinopril 2.5 mg PO DAILY melatonin 5 mg PO BEDTIME PRN metformin 500 mg PO BID pravastatin 10 mg PO DAILY tramadol 50 mg PO Q8H PRN HPI Comments Details: Azeb is very very pleasant German-speaking female who is in the my office today with complains on pain in bilateral knees. We received information from her radioactive waste disposal dispatcher who performed knee injections for her in the past. Those injections were injections of preparation of hyaluronic acid intra-articular as well as injections of the intra-articular steroids. Those injections were not helping her pain beyond the 2-3 weeks of moderate pain relief. We discussed today possibility of treatment of this patient with surgery. She does not mind to have orthopedic surgery consult. I will schedule her to see Dr. Zheng. If she is not a good candidate for total knee replacement I will offer her genicular nerve blocks and possible treatment of the genicular nerves stimulation versus radiofrequency ablation. [facility] Medical History (Updated 02/10/24 @ 15:08 by Edward Welsh MD) Sacroiliac joint dysfunction Sacroiliitis Low back pain Primary osteoarthritis of knees, bilateral HTN (hypertension) Diabetes Arthritis Surgical History History of hysterectomy History of cholecystectomy Social History Alcohol intake: never Review of Systems Const All systems reviewed & are unremarkable except as noted in HPI and below Neuro Denies Abnormal speech present Physical Exam Vital Signs: Last Vital Signs Pulse 77 03/09/24 13:12 Resp 15 03/09/24 13:12 BP 141/73 H 03/09/24 13:12 Pulse Ox 95 03/09/24 13:12 Oxygen Delivery Method Room Air 03/09/24 13:12 BMI result Body Mass Index 32.0 Const General: cooperative, healthy appearing, comfortable and no acute distress Orientation/consciousness: patient oriented x3 Limitations: no limitations HEENT Head: Yes normal to inspection Ears: hearing grossly normal bilaterally General nose exam: Normal external nose present Face and sinus: Yes normal facial exam Mouth: Normal oral and palatal mucosa present Throat: Yes posterior oropharynx normal Eyes General: appearance normal, both eyes and all related structures Pupils: Equal, round and reactive pupils present Chest Chest palpation & inspection: normal inspection of the chest Resp Effort & Inspection: normal respiratory effort GI Palpation (GI): Soft to palpation and nontender Auscultation: normal bowel sounds Back/Spine/Pelvis Other: Palpation of the paraspinal and spinal region on lumbar spine and sacral bone reveals no tenderness. She is able to flex herself forward and flex herself backwards without any difficulties. Loading test is negative for facet joint pathology. Straight leg rising is negative for a radiculopathy. Axel test and Dheeraj finger test, pelvic compression test and pelvic distraction test positive on the right. Skin General skin exam: no rashes or lesions noted Neuro General: patient oriented x3, no focal motor deficits and normal sensation to monofilament Cranial nerves: Yes Equal, round and reactive pupils present Cognition (Neuro): normal cognition Speech: No Abnormal speech present Gait exam (Neuro): Normal gait present Extrem Other: Limited range of motion of bilateral knees. Tenderness on palpation in bilateral knees. Results Reviewed Results Reviewed: XR RIGHT KNEE AND XR LEFT KNEE 02/11/2024 TECHNIQUE: Three views of left knee and three views of right knee. FINDINGS: There is loss of medial and patellofemoral compartment joint space with periarticular spurring. No acute fracture, loose bodies or joint effusion seen. The soft tissues are normal. IMPRESSION: Mild degenerative changes medial and patellofemoral compartment. No visible acute fracture, dislocation or lytic process seen. Assessment & Plan Assessment & Plan (1) Low back pain: Code(s): M54.5 - Low back pain Category: Medical (2) Sacroiliitis: Code(s): M46.1 - Sacroiliitis, not elsewhere classified Category: Medical (3) Sacroiliac joint dysfunction: Code(s): M53.3 - Sacrococcygeal disorders, not elsewhere classified Category: Medical (4) Bilateral knee pain: Code(s): M25.561 - Pain in right knee; M25.562 - Pain in left knee Category: Medical (5) Osteoarthritis of knees, bilateral: Code(s): M17.0 - Bilateral primary osteoarthritis of knee Category: Medical Plan Three years ago this patient was in my office with complains of sacroiliitis. It seemed to be bothering her at least moderately at this time as well. However her most attention today was attracted to bilateral osteoarthritis of the both knees. bilateral knee osteoarthritis One of the radioactive waste disposal dispatcher in the town was performing injections for her in the knees which were intra articular steroid injections as well as preparation of hyaluronic acid injections. The patient reports that neither injections helped her pain beyond the 2-3 weeks. She is interested in surgery. I will refer her to Orthopedic surgery to evaluate possibility of total knee replacement for her. Orders: Referrals Orthopedics Referral M17.0 - Bilateral primary osteoarthritis of knee, M25.561 - Pain in right knee, M25.562 - Pain in left knee Patient Instructions: I hereby testify that I spent total of 40 minutes speaking with the patient as well as examining her xray, reading radiology report, planning her care and organizing this note. lead network architect Radha Kennedy helped us to interpret the conversation in German. Coding Level of Care Code Est Pt Level 5 (44140) Diagnoses Low back pain M54.5 Sacroiliitis M46.1 Sacroiliac joint dysfunction M53.3 Bilateral knee pain M25.561; M25.562 Osteoarthritis of knees, bilateral M17.0
[2024-03-09 13:12] VITALS: BP 141/73; PULSE 77; RESP 15; O2SAT 95; BMI 32.0
== END 2024-03-09 14:20 | disposition home or self-care (01) ==
PROVIDERS: PCP Internal Medicine Geriatric Medicine; Visit Provider Anesthesiology
DX: M54.50 Low back pain, unspecified (principal); M46.1 Sacroiliitis, not elsewhere classified; M53.3 Sacrococcygeal disorders, not elsewhere classified; M25.561 Pain in right knee; M25.562 Pain in left knee; M17.0 Bilateral primary osteoarthritis of knee
CPT/HCPCS: 99215

== ENCOUNTER → 2024-03-09 13:01 | Outpatient (BNVA) | payer OTHER, SELFPAY | PROVIDERS: PCP Internal Medicine Geriatric Medicine; Visit Provider Anesthesiology | DX: M54.50 Low back pain, unspecified (principal); M17.0 Bilateral primary osteoarthritis of knee; M46.1 Sacroiliitis, not elsewhere classified; M53.3 Sacrococcygeal disorders, not elsewhere classified | CPT/HCPCS: 99212 ==

== ENCOUNTER 2024-04-20 09:41 | Outpatient (REF) | payer OTHER, SELFPAY ==
--- NOTE | ~2024-04-20 | XR_ITS ---
EXAMINATION: XR SHOULDER, RIGHT CLINICAL INFORMATION: sp fall right shoulder pain COMPARISON: None available. TECHNIQUE: AP external rotation, Grashey, scapular Y, and axillary views of the right shoulder. FINDINGS: There is subchondral cyst formation and spurs the articular surface of the acromioclavicular joint and at the greater tuberosity of the humerus. No acute cortical disruption or malalignment. No lytic or blastic lesions. XR/XR shoulder RT min 2V IMPRESSION: Degenerative changes without acute fracture or dislocation. Electronically signed by: Phil Melissa MD 04/20/2024 10:35 AM JONAS TABOR
--- NOTE | ~2024-04-20 | XR_ITS ---
EXAMINATION: XR WRIST, RIGHT CLINICAL INFORMATION: fall/ right wrist + hand trauma COMPARISON: 05/04/2020. TECHNIQUE: PA, lateral, oblique, and scaphoid views of the right wrist. FINDINGS: No fracture, dislocation, or suspicious bone lesion. Normal bone mineralization. Normal alignment. Mild degenerative arthritis in the first CMC joint, and first MCP joint. There is chondrocalcinosis throughout the wrist. There are vascular calcifications in the soft tissues. XR/XR wrist RT min 3V IMPRESSION: 1. No acute fracture or dislocation. 2. Chondrocalcinosis throughout the wrist suggesting CPPD. Electronically signed by: Indra Carter MD 04/20/2024 10:49 AM JONAS
--- NOTE | ~2024-04-20 | XR_ITS ---
EXAMINATION: XR HAND 3 OR MORE VIEWS RIGHT HISTORY: INJURY COMPARISON: There are no prior studies available for comparison. FINDINGS: Three views of the right hand are submitted. Osseous mineralization is normal. There is no fracture or dislocation. There is moderate joint space narrowing involving the DIP joints of the 2nd and 3rd fingers and the PIP joints of the 3rd, 4th, and 5th fingers. There are small erosions noted as well as small erosions involving the metacarpal heads of the thumb and index fingers. The soft tissues are unremarkable. XR/XR hand RT min 3V IMPRESSION: Findings suggestive of erosive osteoarthritis versus seronegative arthritis. No evidence of fracture of the right hand. Electronically signed by: James Gonzalez MD 04/20/2024 10:34 AM JONAS
--- OUTSIDE RECORDS SUMMARY | 2024-04-20 10:35 | XMS_ITS | Encounter Summary ---
Author Organization [employer] Address [address] [place] [address] Care Team Providers Care Ice Cream Freezer Assistant Name Role Phone Name, Hill HERNANDEZ Primary Care Provider [phone] Encounter Details Date Type Department Care Team (Latest Contact Info) Description 04/21/2019 Abstract [facility] Dental, Provider, DDS Social History Tobacco Use Types Packs/Day Years Used Date Smoking Tobacco: Never Assessed Comments Unknown Sex and Gender Information Value Date Recorded Sex Assigned at Female 12/25/2021 10:17 AM EDT Legal Sex Female 10:17 AM EDT Gender Identity Female 12/25/2021 10:17 AM EDT Sexual Orientation Straight 12/25/2021 10 :17 AM EDT documented as of this encounter Plan of Treatment Upcoming Encounters Date Type Department Care Team (Late st Contact Info) Description 06/16/2024 1:45 PM EDT Office Visit [facility] [address] [place] [address] Name, MD Hill [address] [place] [address] documented as of this encounter Visit Diagnoses Not on filedocumented in this encounter Care Teams Ice Cream Freezer Assistant Relationship Specialty Start Date End Date Name, MD Hill [address] [place] [address] PCP - General Family Medicine 03/15/15 documented as of this encounter
--- OUTSIDE RECORDS SUMMARY | 2024-04-20 10:35 | XMS_ITS ---
Author Name Mckinley KINSEY MS. Virgie Olson Address [address] [place] [id number] Phone [phone] [facility] Care Team Providers Care Dermatology Nurse Name Role Phone Ruth Sen Unavailable [phone] Reason for Referral Not Available Allergies, adverse reactions, alerts No known allergies History of medication use Medication Class Instructions Start Date End Date Lisinopril 2.5 mg Tab TAKE 1 TABLET BY M OUTH EVERY DAY 2021-10-31 No Data Available metFORMIN 850 mg Tab TAKE 1 TABLET BY MO UTH TWICE DAILY, WITH BREAKFAST AND WITH DINNER. 2021-06-22 No Data Available Diclofenac Sodium 1 % Gel APPLY 4 GRAMS TO AFFECTED AREA(S) TWICE DAILY 2021-12-05 No Data Available OneTouch Delica Plus [id number] Miscellaneous TEST BLOOD SUGAR THREE TIMES DAILY 2021-06-01 No Data Available OneTouch Ultra Strip TEST BLOOD SUGAR TH REE TIMES DAILY 2021-06-01 No Data Available Amitriptyline 75 mg Tab TAKE 1 TABLET BY MOUTH AT BEDTIME 2022-02-21 No Data Available Pravastatin Sodium 10 mg Tab TAKE 1 TABL ET BY MOUTH EVERY DAY 2021-05-23 No Data Available Melatonin 5 mg Cap one tablet at bedtime 2022-06-04 No Data Available Tylenol Extra Strength 500 m g Tab One tablet every 4-6 hours. 2022-06-04 No Data Avai lable Problem List Problem Status Onset Date Resolved Date Essential hypertension Active 2022-06-04 N/A H/O fracture Active 2022-06-04 N/A Major depressive disorder, recurrent, remission Active 2022-06-04 N/A Type 2 diabetes mellitus with complication: HLD Active 2022-06-04 N/A Encounters Encounters Type Facility Date of Service Diagnosis/Co mplaint New patient,40-59min; chronic exacerbation, 2 stable chronic or 1 acute illness add add modifier 95 for video (do not use for phone, instead use 71493-93) [facility], ([place]) 06/04/2022 Type 2 diabetes mellitus wit h other specified complicationHyperlipidemia, unspecifiedEssential (primary) hypertensionMajor depressive disorder, recurrent, in remission, unspecifiedPersonal history of (healed) traumatic fracture New patient,40-59min; chronic exacerbation, 2 stable chronic or 1 acute illness add add modifier 95 for video (do not use for phone, instead use 33019-03) [facility], ([place]) 06/04/2022 New patient,40-59min; chronic exacerbation, 2 stable chronic or 1 acute illness add add modifier 95 for video (do not use for phone, instead use 85761-92) [facility] ([place]) 06/04/2022 New patient,40-59min; chronic exacerbation, 2 stable chronic or 1 acute illness add add modifier 95 for video (do not use for phone, instead use 50168-33) [facility] ([place]) 06/04/2022 New patient,40-59min; chronic exacerbation, 2 stable chronic or 1 acute illness add add modifier 95 for video (do not use for phone, instead use 02649-97) [facility] ([place]) 06/04/2022 New patient,40-59min; chronic exacerbation, 2 stable chronic or 1 acute illness add add modifier 95 for video (do not use for phone, instead use 63622-28) [facility] ([place]) 06/04/2022 New patient,40-59min; chronic exacerbation, 2 stable chronic or 1 acute illness add add modifier 95 for video (do not use for phone, instead use 27560-42) [facility] ([place]) 06/04/2022 New patient,40-59min; chronic exacerbation, 2 stable chronic or 1 acute illness add add modifier 95 for video (do not use for phone, instead use 91090-64) [facility] ([place]) 06/04/2022 Vital Signs Date of Collection Vitals 2022-06-04 10:06:44 Height - 157.48 cmWe ight - 68.04 kgBody Mass Index (BMI) - 27.44 kg/m2 Social History Social History Social History Observation Description Effec tive Time Current Smoking Status Never smoker 2024-03-29 4 Sex Female History of Procedures Procedures Service Procedure code Service date Servicing provider Phone# New patient,40-59min; chronic exacerbation, 2 stable chronic or 1 acute illness add add modifier 95 for video (do not use for phone, instead use 11511-91) 69153 2022-06-04 No Data Available No Data Availa ble Medication List Documented (1159F) 1159F 2022-06-04 No Data Available No Data Kassie ilable Medication Review by prescribing provider or pharmacist documented (1160F) 1160F 2022-06-04 No Data Available No Data Kassie ilable Functional Status Assessed (1170F) 1170F 2022-06-04 No Data Available No Data Avail able Advance Care Directive Advance care planning discussion documented in the medical record (1158F) 1158F 2022-06-04 No Data Available No Data Availa ble BMI obtained (3008F) 3008F 2022-06-04 No Data Availab le No Data Available Advance care planning discussed and documented in the medical record ? beneficiary/patient did not wish to or was unable to provide an advance care plan or name a surrogate decision-maker. 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 Independently showers and dresses. Denies using assistive devices. Toilets independently. 2022-06-04 Mental Status Status Date AOx4 2022-06-04 Assessments Date of Service Assessments 2022-06-04 10:06:44 Type 2 diabetes hailee itus with complication: HLDEssential hypertensionMajor depressive disorder, recurrent, remissionH/O fracture Plan of Care Date of Service Plans 2022-06-04 10:06:44 Medication Review by prescribing provider or pharmacist documented (1160F)Medication List Documented (1159F)Functional Status Assessed (1170F)Advance Care Directive Advance care planning discussion documented in the medical record (1158F)BMI obtained (3008F)Televideo new patient,40-59min; chronic exacerbation, 2 stable chronic or 1 acute illness add modifier 95Advance care planning discussed and documented ? advance care plan or surrogate decision-maker was documented in the medical record. (1123F)Advance care planning discussed and documented in the medical record ? beneficiary/patient did not wish to or was unable to provide an advance care plan or name a surrogate decision-maker. (1124F)Pain Assessment - Pain Documented (1125F)Continue to see PCP. Follow-up with Elizabeth as needed for any acute or disease education needs that may arise.StableMetformin, Pravastatin Avg BP, per patient report: 100-180sno a1c available in outside care notesContinue taking medication as prescribed, monitor BG routinely, low carb, exercise, and contact us if developing HHS or DKA. Continue f/u care and monitoring with PCP every 3-6 months.StableLisinoprilAvg BP, per patient report: 110-120/60-70sContinue taking medication, monitor BP routinely, exercise, low salt diet, and contact us if developing emergent HTN, and continue f/u care and monitoring every 3-6 months.StableAmitriptyline Denies SI/HIContinue taking medication as prescribed, discussed coping mechanisms, and contact us if developing SI/HI or worsening depression. Continue f/u care and monitoring with PCP every 3-6 months.Stableh/o Fracture of neck, unspecifiedContinue f/u care and monitoring with PCP every 3-6 months. Goals Date Goal 2022-06-04 Remember to implemen t low carb diet and continue f/u care and monitoring with PCP every 3-6 months. 2022-06-04 Contact us if develo ping emergent HTN s/sx, HHS, DKA, or uncontrolled pain. 2022-06-04 Continue taking medi cations as prescribed, exercising as tolerable and monitoring BG and BP routinely. Health Concerns Date Concern 2022-06-04 Visit completed by a udio and video. Patient/Guardian agreed to visit via telehealth. Introductory visit with Elizabeth to establish care. Today, patient has chief complaint of: establishing care.Reviewed Allergies, Medications, Active Medical conditions, past medical/surgical history, Social history. 2022-06-04 Most recent hospital stay(s) or ER visit(s) and precipitating factors: 0 hospitalizations or ER visits in the last 12 months per patient report. 2022-06-04 Advance care planlinda barnes discussion. Conversation today with patient. 2022-06-04 Informed verbal cons ent was obtained from this patient to communicate and provide care using virtual and other telecommunications tools. This patient has been explained the risks, if any, related to encounter and that care provided through video or audio communications cannot replace the need for physical examination or an in person visit for some disorder or urgent problems.
--- OUTSIDE RECORDS SUMMARY | 2024-04-20 10:35 | XMS_ITS | Encounter Summary ---
Author Organization [facility] Address [id number] [place] [address] Care Team Providers Care Wallcovering Hanger Name Role Phone Gina Fonseca MD Primary Care Provider [phone] Reason for Visit * Reason Comments Follow-up Diabetic foot care Encounter Details Date Type Department Care Team (Late st Contact Info) Description 04/09/2024 1:00 PM EST Office Visit Orthopedic Surgery - [place] [address] [address] Vicente Pearce DPM [address] [address] Hallux rigidus of left foot (Primary Dx); Hallux rigidus of right foot; Dermatophytosis of nail; Pain in toe of left foot; Pain in toe of right foot; Difficulty walking Social History Tobacco Use Types Packs/Day Years Used Date Smoking Tobacco: Never Smokeless Tobacco: Never Alcohol Use Standard Drinks/Week Comments Yes 0 (1 standard drink = 0.6 oz pur e alcohol) Comments Unknown Sex and Gender Information Value Date Recorded Sex Assigned at Not on file Legal Sex Female 4:34 AM EST Gender Identity Not on file Sexual Orientation Not on file documented as of this encounter Last Filed Vital Signs Vital Sign Reading Time Taken Comments Blood Pressure - - Pulse - - Temperature - - Respiratory Rate - - Oxygen Saturation - - Inhaled Oxygen Concentration - - Weight 71.7 kg (158 lb) 04/09/2024 12:49 PM EST Height 152.4 cm (5') 04/09/2024 12:49 PM EST Body Mass Index 30.86 04/09/2024 12:49 PM EST documented in this encounter Progress Notes * Vicente Pearce DPM - 04/09/2024 1:00 PM EST S Patient doing well after surgery on 09/22/2021 left great toe metatarsophalangeal replacement as sheis doing well with pain medication denies other pedal complaints. Patient states that occasionally she has some swelling and irritation states the pain ranges from a 1-2 out of 10 on a visual analog scale overall she is happy from the surgical procedure but does note that once in while she feels like she gets some increased irritation in the area that comes and goes she notes that her right has been bothering her as well she like to know if she has a similar procedure at some point done of her right great toe she also notes some nail improvement patient does not she still gets some arthritic pain in both feet did refuse x-rays today's appointment patient does note that she getting worseningarthritis of her right great toe as well as her left second toe she is throbbing achy pain she states occasionally she has a topical medication she states he is wonder if something else can be done does not that her left great toe from joint placement overall doing much better she states she is great range of motion is overall happy with the implant at this time has not been greater than 2 years since surgical date Last MD visit Dr. Alejandre Name MD encounter date 10/15/2023 interpreter deaf ID number [id number] utilized at today's appointment ROS: GENERAL: Pt denies nausea, fever, vomiting, chills, or shortness of breath. Pt in NAD. CARDIOLOGY: pt denies chest pain, palpitations LUNGS: pt denies shortness of breath MUSCULOSKELETAL: See HPI, otherwise no joint pain or swelling, back pain, or muscle pain. SKIN: see HPI, otherwise no lesions, rash or itching NEURO: No persistent headache, weakness or numbness The remainder of the review of systems is noncontributory PAST MEDICAL HISTORY: Patient Active Problem List Diagnosis Known medical problems HTN (hypertension) Insomnia SOCIAL HISTORY: Social History Tobacco Use Smoking status: Never Smokeless tobacco: Never Substance Use Topics Alcohol use: Yes ACTIVE MEDICATIONS: Outpatient Medications Marked as Taking for the 04/09/24 encounter (Office Visit) with Vicente Junior DPM Medication Sig Dispense Refill amitriptyline (ELAVIL) 25 mg tablet Take 1-2 tabs at bedtime celecoxib (CeleBREX) 200 mg capsule Take 1 capsule (200 mg total) by mouth 2 (two) times a day. diclofenac (VOLTAREN) 1 % topical gel Apply 4 g topically 2 times daily. empagliflozin (Jardiance) 10 mg tablet Take 1 tablet (10 mg total) by mouth 1 (one) time each day in the morning. lancets ([place] Plasma PhysicsTouch Delica Plus Lancet) 33 gauge TEST BLOOD SUGAR THREE TIMES DAILY lisinopriL (PRINIVIL,ZESTRIL) 2.5 mg tablet Take 1 tablet (2.5 mg total) by mouth 1 (one) time eachday. metFORMIN (GLUCOPHAGE) 500 mg tablet Take 1 tablet (500 mg total) by mouth 2 (two) times a day withmeals. metFORMIN (GLUCOPHAGE) 850 mg tablet TAKE 1 TABLET BY MOUTH TWICE DAILY, WITH BREAKFAST AND WITH DINNER. omeprazole (PriLOSEC) [address] capsule Take 1 capsule (20 mg total) by mouth 1 (one) time each day in the morning. OneTouch Ultra Test test strip TEST BLOOD SUGAR THREE TIMES DAILY pravastatin (PRAVACHOL) 10 mg tablet Take 1 tablet (10 mg total) by mouth 1 (one) time each day. SUMAtriptan (IMITREX) 25 mg tablet TAKE 1 TABLET BY MOUTH AT ONSET OF MIGRAINE. MAY REPEAT ONCE AFTER 2 HOURS IF NEEDED NO MORE THAN 2 TABLETS IN 24 HOURS ALLERGIES: No Known Allergies PHYSICAL EXAM: Visit Vitals Ht 1.524 m (60 ) Wt 71.7 kg (158 lb) BMI 30.86 kg/m?? Smoking Status Never BSA 1.69 m?? PODIATRIC EXAMINATION: GENERAL: Patient appears well nourished, with NAD. VASCULAR: Dorsalis pedis pulses are 2/4 bilaterally and Posterior tibial pulses are 2/4 bilaterally. Capillary filling time within normal limits the digits. No pallor on elevation or rubor on dependency. Positive hair growth. No varicosities. Denies rest pain or claudication pain. NEUROLOGICAL: Sharp/dull sensation intact, protective sensation intact 10/10 with 5.07 semmes nery bilaterally, vibratory sensation with tuning fork intact to the tibial tuberosity. ORTHOPEDIC: Good muscle strength 5/5 of all flexors and extensors. Dorsi flexion of ankle ,10 degrees, plantar flexion WNL. No muscle atrophy. DERMATOLOGICAL:.Skin is healed normal scar formation no localized erythema diffuse edema of the forefoot consistent with postoperative swelling Toenails: Left Toenail(s) 1-5: Crumbling upon debridement, subungual debris, discoloration, dystrophy, elongation, mycotic appearance, onychomycosis, pain and thickening. Right Toenail(s) 1-5: Crumbling upon debridement, subungual debris, discoloration, dystrophy, elongation, mycotic appearance, onychomycosis, pain and thickening. Annular scaling bilateral feet moccasin distribution BIOMECHANICS: STJ ROM wnl, MTJ ROM wnl, left great toe normal range of motion after implant with increased dorsiflexion plantarflexion without crepitation right great toe some level crepitation on range of motion IMAGING: Radiographs reviewed joint space implant intact with maintained space with no signs of significant regrowth of bony deformities IMPRESSION: 1. Hallux rigidus of left foot 2. Hallux rigidus of right foot 3. Dermatophytosis of nail 4. Pain in toe of left foot 5. Pain in toe of right foot 6. Difficulty walking PLAN: New x-rays ordered both feet 3 views X-rays reviewed with patient in detail both feet 3 views to evaluate for osteoarthritis of both feet Surgical options for right foot were discussed and reviewed for worsening arthritis she states she is to hold off on at this time did discuss the possible cheilectomy with implant her left foot is been doing well with implant Revisited steroid injections with patient in detail would recommend patient states like to think about it Discussed with patient diabetic neuropathy with her in detail Discussed recommend continue with Voltaren gel topically for acute flareups as well as ibuprofen asneeded Voltaren gel represcribed continue with medication Discussed with patient regarding proper glucose control, exercise, and diet. Explained to patient proper shoe gear, and importance of daily foot checks. Toenails clean optimize topical therapy continue with topical antifungals I reviewed neuropathy and why it occurs in diabetics. I educated the patient on proper blood sugar control and the importance of an HgBA1c of less than 7.0%. I reviewed the signs and symptoms of neuropathy with the patient Topical antifungal medications discussed in detail recommend [id number] Patient can follow-up in 1 to 2 months Treatment options were discussed including steroid injection pending plain radiograph evaluation ofimplant of her left great toe and arthritis of her right Additional options including steroid injections revisional surgical options were discussed and reviewed. There is like to hold off on additional surgery at this time Debridement of mycotic toenails 6-10: Verbal informed consent was obtained from the patient. Greater than 6 nails were aseptically debrided in thickness and length with nail nippers Vicente Pearce DPM documented in this encounter Plan of Treatment Upcoming Encounters Date Type Department Care Team (Late st Contact Info) Description 06/09/2024 10:00 AM EDT Office Visit Orthopedic Surgery - [place] [id number] [phone] Vicente Pearce DPM [address] [id number] documented as of this encounter Visit Diagnoses Diagnosis Hallux rigidus of left foot- Primary Hallux rigidus of right foot Dermatophytosis of nail Pain in toe of left foot Pain in soft tissues of limb Pain in toe of right foot Pain in soft tissues of limb Difficulty walking Difficulty in walking documented in this encounter Care Teams Wallcovering Hanger Relationship Specialty Start Date End Date Gina Fonseca MD [address] [place], [place] PCP - General Internal Medicine 10/16/21 documented as of this encounter
--- OUTSIDE RECORDS SUMMARY | 2024-04-20 10:35 | XMS_ITS | Encounter Summary ---
Author Organization [employer] Address [address] [facility] [address] [place] [address] Care Team Providers Care Crack Off Person Name Role Phone Name, Hill HERNANDEZ Primary Care Provider [phone] Reason for Visit * Reason Onset Date Comments requesting a call 09/04/2022 Encounter Details Date Type Department Care Team ([facility] st Contact Info) Description 09/04/2022 Telephone [facility] [address] [place] [address] [phone] Name, MD Hill [address] [place] [address] requesting a call Social History Tobacco Use Types Packs/Day Years Used Date Smoking Tobacco: Never Smokeless Tobacco: Never Depression Answer Date Recorded Patient Health Questionnaire-9 Score 19 07/03/2022 Depression Answer Date Recorded Patient Health Questionnaire-2 Score 6 07/03/2022 Comments Unknown Sex and Gender Information Value Date Recorded Sex Assigned at Female 12/25/2021 10:17 AM EDT Legal Sex Female 10:17 AM EDT Gender Identity Female 12/25/2021 10:17 AM EDT Sexual Orientation Straight 12/25/2021 10 :17 AM EDT documented as of this encounter Miscellaneous Notes * Telephone Encounter - Bryant Friedman RN - 09/05/2022 2:46 PM EDT T/C to [phone] for below message through [employer] id - [id number] for below message, pt. States she is all set, she does not has any question right now. Pt. Advised to give call to [facility] if any questions or concerns. * Telephone Encounter - Hemalatha Rodriguez - 09/04/2022 2:39 PM EDT Tc from pt requesting a call. Pt did not go in to detail and is aware of upcoming appointment. Please contact pt at [phone] (Korean speaker) documented in this encounter Plan of Treatment Upcoming Encounters Date Type Department Care Team (Late st Contact Info) Description 06/16/2024 1:45 PM EDT Office Visit [facility] [address] [place] [phone] Name, MD Hill [address] [place] [phone] documented as of this encounter Visit Diagnoses Not on filedocumented in this encounter Additional Health Concerns Assessment Noted Time PHQ-9 Depression Total Score: 19 023 1:35 PM EDT documented as of this encounter Care Teams Crack Off Person Relationship Specialty Start Date End Date Name, MD Hill [address] [place] [id number] PCP - General Family Medicine 03/15/15 documented as of this encounter
--- OUTSIDE RECORDS SUMMARY | 2024-04-20 10:35 | XMS_ITS | Clinical Summary ---
Author Organization [employer] Address [address] [place] [address] Care Team Providers Care Case Checker Name Role Phone Name, Hill HERNANDEZ Primary Care Provider [phone] Allergies No known active allergies Medications * This document contains information received from the source organization and may not represent a complete record from that organization. Lancets (OneTouch Delica Plus [id number]) misc TEST BLOOD SUGAR THREE TIMES DAILY 03/02/19 23 Active omega-3 (Fish Oil) 1000 MG capsule Active SUMAtriptan (Imitrex) 25 MG tablet Take 1 tablet (25 mg) by mouth 1 (one) time if needed for migraine for up to 9 doses. May repeat dose once in 2 hours if no relief. Do not exceed 2 doses in 24 hours. 9 tablet 09/06/19 23 Active Misc. Devices (Pulse Oximeter) miscIndications: COVID-19 1 each 3 times daily. 1 each 02/22/20 23 Active empagliflozin (Jardiance) 10 MG Take 1 tablet (10 mg) by mouth in the morning. 30 tablet 03/07/19 24 Active Lancets (OneTouch Delica Plus [id number]) miscIndications: Diabetes mellitus type 2 in obese TEST BLOOD SUGAR THREE TIMES DAILY 100 each 04/10/19 24 Active metFORMIN (Glucophage) 850 MG tabletIndication s:Type 2 diabetes mellitus with other specified complication, without long-term current use of insulin (CMS/HCC),Essent ial hypertension TAKE 1 TABLET BY MOUTH TWICE DAILY, WITH BREAKFAST AND WITH DINNER. 60 tablet 04/22/19 24 Active OneTouch Ultra Test test stripIndications :Type 2 diabetes mellitus with other specified complication, without long-term current use of insulin (CMS/[facility]) TEST BLOOD SUGAR THREE TIMES DAILY 150 strip 11 07/23/19 24 Active chlorhexidine (Peridex) 0.12 % solution Swish 15 mL morning and night for 1 minute. Spit, do not swallow. Do not eat or drink for 30 minutes following use. 473 mL 08/16/19 24 Active pravastatin (Pravachol) 10 MG tablet Take 1 tablet (10 mg) by mouth Once per day. 90 tablet 3 09/16/19 24 Active Diclofenac Sodium 1 % gelIndications:C hronic low back pain, unspecified back pain laterality, unspecified whether sciatica present Apply thin layer twice a day to the affected area 100 g 2 11/18/19 24 Active omeprazole (PriLOSEC) [address] capsule TAKE 1 CAPSULE BY MOUTH EVERY MORNING 30 capsule 3 11/22/19 24 Active cetirizine (ZyrTEC) 10 MG tablet Take 1 tablet (10 mg) by mouth Once per day. 60 tablet 12/02/19 24 Active Romy-Dryl 25 MG tablet TAKE 1 TABLET BY MOUTH AT BEDTIME NEEDED FOR SLEEP 30 tablet 12/02/19 24 Active lisinopril 2.5 MG tabletIndication s:Essential hypertension TAKE 1 TABLET BY MOUTH DAILY IN THE MORNING 90 tablet 1 12/04/19 24 Active lidocaine-priloc jeanne (Emla) 2.5-2.5 % cream Apply topically if needed in the morning and at bedtime for mild pain. 30 g 12/25/19 24 Active baclofen (Lioresal) 10 MG tabletIndication s:Chronic right-sided low back pain with right-sided sciatica Take 0.5 tablets (5 mg) by mouth if needed at bedtime for muscle spasms. May take 1 tablet hs prn if tolerated. 20 tablet 03/17/19 25 Active amitriptyline (Elavil) 25 MG tablet TAKE 1 TABLET BY MOUTH AT BEDTIME 30 tablet 1 03/19/19 25 Active Blood Glucose Monitoring Suppl (ONE TOUCH ULTRA 2) w/Device kit TEST BLOOD SUGAR THREE TIMES DAILY 1 kit 03/25/19 25 Active meloxicam (Mobic) 15 MG tablet Take 1 tablet (15 mg) by mouth Once per day. 30 tablet 04/20/19 25 026 Active cefadroxil (Duricef) 500 MG capsule Take 1 capsule (500 mg) by mouth 2 times daily for 7 days. 14 capsule 04/20/19 25 025 Active Blood Glucose Monitoring Suppl (ONE TOUCH ULTRA 2) w/Device kit USE TO TEST BLOOD SUGAR THREE TIMES DAILY 1 kit 03/25/19 24 025 Discontinued Active Problems Problem Noted Date Diagnosed Date Right wrist tendinitis 04/20/2024 Assessment & Plan (04/20/2024 9:37 AM EST): Right hand/wrist immobilized with a splint. Take meloxicam x 1 week and Tylenol as needed Can continue using brace as needed, if symptoms are not resolved, she may need to be referred to OT. Right hand tendonitis 04/20/2024 Assessment & Plan (04/20/2024 9:37 AM EST): Right hand immobilized with a splint. Take meloxicam x 1 week and Tylenol as needed Can continue using brace as needed, if symptoms are not resolved, she may need to be referred to OT. Cellulitis of right wrist 04/20/2024 Assessment & Plan (04/20/2024 9:36 AM EST): Most likely related to fall. No evidence of laceration. Take Duricef x 1 week, keep area clean and dry. Acute pain of right shoulder due to trauma 04/20 Assessment & Plan (04/20/2024 9:36 AM EST): Status post fall. Take meloxicam daily x 1 week then as needed, can take Tylenol as needed every 8 hours as needed pain. If symptoms do not resolve, she may need to follow-up with PCP. Contusion of left breast 11/18/2023 Assessment & Plan (11/18/2023 4:47 PM EDT): Has small ecchymoses Apply Ice pack to affected area Take tylenol prn FU with PCP in 4-w to see if she needs addtl w/u Contusion of left shoulder 11/18/2023 Assessment & Plan (11/18/2023 4:45 PM EDT): Sp accidental fall, will do Xray to ro fracture Take tylenol + flexeril prn + diclofenac gel Advised to appply heat to affected area Fu with PCP if sxs do not improve within 2w Fall (on)(from) sidewalk curb, initial encounter 11/18/2023 Assessment & Plan (11/18/2023 4:33 PM EDT): Apparently accidental, see previous notes. Advised to always use appropriate shoe wear, caution with ambulation. Chronic left hip pain 11/18/2023 Assessment & Plan (11/18/2023 4:46 PM EDT): Exacerbated by recent fall, Will do Xray to ro fracture See POC above Laceration of left hand without foreign body Assessment & Plan (11/18/2023 4:46 PM EDT): Keep area clean and dry, can apply triple antibiotic cream until it heals completely Td is up to date Fu with PCP Preop examination 10/10/2023 Normal oral exam 08/16/2023 Open fracture of tooth 08/13/2023 Age-related cataract of both eyes 07/26/2023 Assessment & Plan (10/11/2023 10:04 AM EDT): Upcoming cataract repair see assessment below Grief 05/06/2023 Assessment & Plan (05/09/2023 1:17 PM EDT): During IBH Consult Azeb presenting with depressed mood, loss of interests/pleasure , changes in sleep difficulty falling asleep, change in appetite or weight reduce appetite, trouble concentrating, thoughts of worthlessness or guilt, fatigue/loss of energy, hopelessness, difficulty concentrating, disbelief of the , intense emotional pain, feeling that life is meaningless; for a period of 0-6 mo, for all symptoms in the context of , family issues, and illness or family illness. Azeb's boyfriend unexpectedly in the [place]. They have been together for about four years. Azeb lives alone and reports having sense of isolation and feeling lonely. The passing of her boyfriend has been identified as main stressor. PLAN: (check all that apply) Further services needed, but declined Behavioral Health Integration Plan Internal Follow up with [facility] Patient Self Plan Patient to utilize skills provided in intervention , [facility] as needed, Comply with medication , and Patient to reach out to [facility] as needed. Pt declined OP referral and agreed to meet with clinician in three weeks to get support during her grieving process. COVID-19 02/21/2023 Assessment & Plan (02/21/2023 3:17 PM EST): This is her first time having COVID She does not report any concerning symptoms, normal O2 on RA Recommend home monitoring of O2 sats at home, pulse ox ordered For sats <92% consistently to ER After discussion of risks and benefits of Paxlovid she elects to take it Normal renal function at last check in 07/2022 After reviewing her medication list, there are no meds with clinically significant interactions with Paxlovid Dental calculus 10/04/2022 Generalized gingival recession 10/04/2022 Excessive attrition of teeth, limited to enamel 10/04/2022 Missing teeth, acquired 10/04/2022 Colon cancer screening 09/11/2022 Depression, unspecified 07/03/2022 Assessment & Plan (05/09/2023 1:17 PM EDT): During IBH Consult Azeb presenting with depressed mood, loss of interests/pleasure , changes in sleep difficulty falling asleep, change in appetite or weight reduce appetite, trouble concentrating, thoughts of worthlessness or guilt, fatigue/loss of energy, hopelessness, difficulty concentrating, disbelief of the , intense emotional pain, feeling that life is meaningless; for a period of 0-6 mo, for all symptoms in the context of , family issues, and illness or family illness. Azeb's boyfriend unexpectedly in the [place]. They have been together for about four years. Azeb lives alone and reports having sense of isolation and feeling lonely. The passing of her boyfriend has been identified as main stressor. PLAN: (check all that apply) Further services needed, but declined Behavioral Health Integration Plan Internal Follow up with [facility] Patient Self Plan Patient to utilize skills provided in intervention , Patient to reach out to [facility] team as needed, Comply with medication , and Patient to reach out to [facility] as needed. Pt declined OP referral and agreed to meet with clinician in three weeks to get support during her grieving process. Chronic low back pain 04/13/2022 Assessment & Plan (11/18/2023 4:32 PM EDT): Most likely lumbar spasm sp fall Advised to apply heat to affected area, diclofenac gel, tyelnolk and flexeril prn Advised to come to acupuncture prn persistent pain Order Xrays to ro fractures and fu with PCP Gastroesophageal reflux disease without esophagi tis 04/13/2022 Lumbar spondylosis 04/13/2022 Shoulder pain 04/13/2022 Migraine 04/13/2022 Acute hemorrhagic cystitis 11/12/2017 Constipation 02/14/2017 Primary osteoarthritis of both knees 02/14/2017 Rash and nonspecific skin eruption 11/20/2016 Radicular pain 04/30/2016 Insomnia 04/14/2015 Atopic conjunctivitis 11/15/2011 Arthropathy 07/31/2011 Elevated blood pressure read ing without diagnosis of hypertension 07/31/2011 HTN (hypertension) 07/31/2011 Headache 07/31/2011 Type 2 diabetes mellitus 07/31/2011 Assessment & Plan (10/11/2023 10:05 AM EDT): At goal. Continue current regimen Known medical problems 07/31/2011 Overview (03/09/2024): Diabetes mellitus type 2, uncontrolled Resolved Problems Problem Noted Date Diagnosed Date Resolved Date Lung mass 03/11/2018 09/11/2022 Acute upper respiratory infection 07/31/2011 09/05/2022 Encounters Date Type Department Care Team Description 04/20/2024 9:00 AM EST Office Visit [facility] [address] [place] [phone] Right wrist tendinitis (Primary Dx); Right hand tendonitis; Cellulitis of right wrist; Acute pain of right shoulder due to trauma 03/24/2024 Refill [facility] [address] [place] [phone] Hill Dickson MD 03/24/2024 Telephone [facility] [address] [place] [phone] Hill Dickson MD 03/18/[address] [address] Hill Dickson MD FYI 03/18/[address] [phone] Hill Dickson MD 03/17/2024 2:00 PM EST Office Visit [address] [phone] Hill Dickson MD Type 2 diabetes mellitus with other specified complication, without long-term current use of insulin ([facility]) (Primary Dx); Primary osteoarthritis of both knees; Chronic right-sided low back pain with right-sided sciatica; Chronic insomnia 03/09/2024 Telephone [facility] [address] [place] [phone] Livia Tracy MA chart prep 02/24/2024 Refill [facility] [address], [place] [phone] Hill Dickson MD 02/17/2024 Refill [facility] [address] [place] [phone] Hill Dickson MD Muscle spasm (Primary Dx) 02/11/2024 Orders Only [facility] External Provider, [facility] 01/29/2024 Refill [facility] [address] [place], [place] [phone] Hill Dickson MD from Last 3 Months Immunizations Name Administration Dates Next Due Influenza, IIV3, injectable 11/15/2008 PPD Test 05/19/2014 Pfizer Covid-19 Vaccine 12+ Bivalent 03/08/2022 Pneumococcal Conjugate PCV 13 11/20/2016 Pneumococcal Polysaccharide PPSV23 07/08/2012 TD (adult), 2 Lf tetanus tox oid, preservative free, adsorbed 05/19/2014,07/08/2012 Tdap 10/31/2020,07/31/2017 Zoster, live 12/02/2013 Social History Tobacco Use Types Packs/Day Years Used Date Smoking Tobacco: Never Passive Smoke Exposure: Never Smokeless Tobacco: Never Tobacco Cessation:Counseling Given: Not Answered Alcohol Use Standard Drinks/Week Comments Never 0 (1 standard drink = 0.6 oz pur e alcohol) Depression Answer Date Recorded Patient Health Questionnaire-9 Score 4 03/17/2024 Patient Health Questionnaire-9 Score 4 03/17/2024 Last PHQ-9: Questionnaire Data Not on file 0 03/17/2024 Housing Stability Answer Date Recorded What is your housing situation today? I have richy rolon 03/17/[address] you li ve. Do you have problems with any of the following? None of the above 03/17/2024 Food Insecurity Answer Date Recorded Within the past 12 months, y ou worried that your food would run out before you got money to buy more: Never True 03/17/2024 Within the past 12 months,th e food you bought just didn't last and you didn't have enough money to get more: Never True Transportation Answer Date Recorded In the past 12 months, has l ack of transportation kept you from medical appts, meetings, work or from getting things needed for daily living? No 12/17/2022 Utilities Answer Date Recorded In the past 12 months, has t he electric, gas, oil or water company threatened to shut off services in your home? No 03/17/2024 Depression Answer Date Recorded Patient Health Questionnaire-2 Score 1 03/17/2024 Internet Access Answer Date Recorded Internet Access Q1 No 03/17/2024 Internet Access Q2 I do not want or need it 02/26 Comments No Sex and Gender Information Value Date Recorded Sex Assigned at Female 12/25/2021 10:17 AM EDT Legal Sex Female 10:17 AM EDT Gender Identity Female 12/25/2021 10:17 AM EDT Sexual Orientation Straight 12/25/2021 10 :17 AM EDT Last Filed Vital Signs Vital Sign Reading Time Taken Comments Blood Pressure 140/60 04/20/2024 8:50 AM EST Pulse 84 04/20/2024 8:50 AM EST Temperature 36.9 ??C (98.4 ??F) 04/20/2024 8:50 AM ES T Respiratory Rate 18 04/20/2024 8:50 AM EST Oxygen Saturation 96% 03/17/2024 2:13 PM EST Inhaled Oxygen Concentration - - Weight 74.5 kg (164 lb 3.2 oz) 04/20/2024 8:50 A M EST Height 157.5 cm (5' 2 ) 04/20/2024 8:50 AM EST Body Mass Index 30.03 04/20/2024 8:50 AM EST Plan of Treatment Upcoming Encounters Date Type Department Care Team (Late st Contact Info) Description 06/16/2024 1:45 PM EDT Office Visit [facility] [address] [place] [address] Name, MD Hill [address] [place] [address] Health Maintenance Due Date Last Done Comments Zoster Vaccines (2 of 3) 01/27/2014 12/02/2013 RSV Patients and Patients Aged 60 years or older (1 - 1-dose 75+ series) 2022 Dental X-Ray: Bitewings 10/06/2023 10/05/19 23, 07/26/2021, 01/06/2020, Additional history exists COVID-19 Vaccine ( season) 2023 03/08/2022, 01/04/2021, 06/25/2020, Additional history exists Influenza Vaccine (#1) 2023 11/15/2008 Dental Oral Exam 11/27/2023 05/27/2023, 02/2021, 01/06/2020, Additional history exists Dental Prophylaxis 11/27/2023 05/27/2023, 0 10/04/2022, 07/26/2021, Additional history exists SDOH Screening 02/29/2024 02/28/2023 Diabetes: Foot Exam 03/07/2024 03/07/2023, 03/07/2023, 03/07/2023, Additional history exists Dental X-Ray: Full Mouth 07/27/2024 022, 06/06/2016, 05/31/2008 Diabetes: Urine Protein Screening 09/08/2024 09/09/2023, 06/28/2022, 07/10/2021, Additional history exists Lipid Panel 09/08/2024 09/09/2023, 05/2022, 07/10/2021, Additional history exists Diabetes: Hemoglobin A1C 09/14/2024 025, 08/12/2023, 01/07/2023, Additional history exists Alcohol/Substance Use Screening 03/17/2025 03/17/2024 Depression Screening 03/17/2025 03/17/2024, 03/17/19 Eye Exam 03/22/2025 03/22/2023, 01/10/2023 Tobacco Screening 04/20/2025 04/20/2024 DTaP/Tdap/Td Vaccines (3 - Td or Tdap) 10/31/2030 10/31/2020, 07/31/2017, 05/19/2014, Additional history exists Hepatitis C Screening Completed 09/15/2012 Colonoscopy Discontinued 03/03/2014 Colorectal Cancer Screening Discontinued Pneumococcal Vaccine: 50+ Years Completed 11/20/2016, 07/08/2012 CT Colonography Discontinued FIT DNA/Cologuard Discontinued FIT Discontinued FOBT Discontinued HIB Vaccines Aged Out No longer eligi ble based on patient's age to complete this topic HPV Vaccines Aged Out No longer eligi ble based on patient's age to complete this topic Hepatitis A Vaccines Aged Out No long er eligible based on patient's age to complete this topic Hepatitis B Vaccines Aged Out No long er eligible based on patient's age to complete this topic IPV Vaccines Aged Out No longer eligi ble based on patient's age to complete this topic Meningococcal Vaccine Aged Out No dottie lois eligible based on patient's age to complete this topic RSV under 20 months Aged Out No longe r eligible based on patient's age to complete this topic Rotavirus Vaccines Aged Out No longer eligible based on patient's age to complete this topic Sigmoidoscopy Discontinued Procedures Procedure Name Priority Date/Time Associated Diagnosis Comments POCT GLUCOSE Routine 03/17/2024 2:17 PM EST Type 2 diabetes mellitus with other specified complication, without long-term current use of insulin ([facility]) POCT GLYCATED HEMOGLOBIN, TOTAL Routine 03/17/2024 2:16 PM EST Type 2 diabetes mellitus with other specified complication, without long-term current use of insulin (CMS/HCC) XR KNEE 3 VIEWS RIGHT Routine 02/11/2024 11:46 AM EST XR KNEE 3 VIEWS LEFT Routine 02/11/2024 11:46 AM EST ALBUMIN, RANDOM URINE W/CREATININE Routine 09/09/2023 8:50 AM EDT Type 2 diabetes mellitus with other specified complication, without long-term current use of insulin (CMS/HCC) LIPID PANEL, STANDARD Routine 09/09/2023 8:42 AM EDT Type 2 diabetes mellitus with other specified complication, without long-term current use of insulin (CMS/[facility]) PROPHYLAXIS - ADULT Routine 05/27/2023 1 :00 PM EDT PERIODIC ORAL EVALUATION - ESTABLISHED PATIENT Routine 05/27/2023 1:00 PM EDT DIABETES EYE EXAM Routine 03/22/2023 BITEWINGS - 2 RADIOGRAPHIC IMAGES Routine 10/04/2022 3:00 PM EDT Excessive attrition of teeth, limited to enamel Generalized gingival recession Dental calculus Missing teeth, acquired INTRAORAL - COMPLETE SERIES OF RADIOGRAPHIC IMAGES Routine 07/26/2021 12:00 AM EDT COLONOSCOPY Routine 03/03/2014 2:40 PM EST HEPATITIS C ANTIBODY Routine 09/15/2012 from Last 3 Months or Most Recently Relevant to Health Maintenance Results * POCT Glucose (03/17/2024 2:17 PM EST) Pathologist [facility] Glucose Blood, POC 146 60 - 200 mg/dL QC Media Lot # [id number] Lot# Expiration Date 53 Blood Capillary blood specimen / Unknown 03/17/2024 2:17 PM EST Hill Dickson MD POINT OF CARE TEST ENTER/EDIT OR DERABLES Final Result * (ABNORMAL) POCT HGB A1C (03/17/2024 2:16 PM EST) Hemoglobin A1C 6.3(A) 4.0 - 6.0 % QC Media Lot # [id number] Lot# Expiration Date [id number] Blood 03/17/2024 2:16 PM EST us Hill Name MD POINT OF CARE TEST ENTER/EDIT OR DERABLES Final Result * XR Knee 3 Views Right (02/11/2024 11:46 AM EST) Anatomical Region Laterality Modality Lower Extremities, Knee Right Radiogra phic Imaging 02/11/2024 11:4 6 AM EST Narrative 2024 7:14 AM EST ? [facility] ?[address] ?[place] [address] ?XRay Report ? Signed ? Patient: Kennedy,Azeb ?MR#: [id number] ?? 4 ? : 1945 ?Acct:[id number] ? Age/Sex: 78 / F ?ADM Date: 02/11/24 ? Loc: HO.XRAY ? Attending Dr: Edward Welsh MD ? Ordering Physician: Edward Welsh MD ?? Date of Service: 02/11/24 ?? Procedure(s): XR knee RT 3V ?? Accession Number(s): [id number] ? cc: Edward Welsh MD; Hill Dickson MD ? EXAMINATION: ?? XR RIGHT KNEE AND XR LEFT KNEE ? CLINICAL INFORMATION: ?? Pain in right knee M25.561. ? COMPARISON: ?? XR Left knee 12/07/2019; XR Right knee 07/14/2010 (reports only). ? TECHNIQUE: ?? Three views of left knee and three views of right knee. ? FINDINGS: ?? There is loss of medial and patellofemoral compartment joint space with ?? periarticular spurring. No acute fracture, loose bodies or joint ?? effusion seen. The soft tissues are normal. ? XR/XR knee RT 3V ?? IMPRESSION: ?? Mild degenerative changes medial and patellofemoral compartment. ? No visible acute fracture, dislocation or lytic process seen. ? Electronically signed by: ??Armando Garner MD ??2024 07:12 AM EST RP ? Dictated By: ?Patsy,Armando S MD ? Signed By: ?<Electronically signed by Armando S Patsy, MD in OV> ?03/12/24 0712 ? DD/ 1146 ? TD/TT: 02/11/24 1205 ? [employer] Law Clerk: MIRIAM ? Procedure Note Donotuseinterpreter, Image - [address] [address] XRay Report Signed Patient: Abraham Kennedy#: [id number] 4 : 8Acct:[id number] Age/Sex: 78 / FADM Date: 02/11/24 Loc: HO.SHAUNAY Attending Dr: Edward Welsh MD Ordering Physician: Edward Welsh MD Date of Service: 02/11/24 Procedure(s): XR knee RT 3V Accession Number(s): [id number] cc: Edward Welsh MD; Name,Hill HERNANDEZ EXAMINATION: XR RIGHT KNEE AND XR LEFT KNEE CLINICAL INFORMATION: Pain in right knee M25.561. COMPARISON: XR Left knee 12/07/2019; XR Right knee 07/14/2010 (reports only). TECHNIQUE: Three views of left knee and three views of right knee. FINDINGS: There is loss of medial and patellofemoral compartment joint space with periarticular spurring. No acute fracture, loose bodies or joint effusion seen. The soft tissues are normal. XR/XR knee RT 3V IMPRESSION: Mild degenerative changes medial and patellofemoral compartment. No visible acute fracture, dislocation or lytic process seen. Electronically signed by: Armando Garner MD 2024 07:12 AM EST Dictated By: Armando Garner MD Signed By: <Electronically signed by Armando Garner MD in OV> 03/12/24 0712 DD/ 1146 TD/TT: 02/11/[address] [employer] [address] Law Clerk: MIRIAM us [facility] External Provider IMG XR PROCEDURES Edited Result - Final * XR Knee 3 Views Left (02/11/2024 11:46 AM EST) Anatomical Region Laterality Modality Lower Extremities, Knee Left Radiogra phic Imaging 02/11/2024 11:4 6 AM EST Narrative 2024 7:14 AM EST ? [facility] ?[address] ?[place] [address] ?XRay Report ? Signed ? Patient: Kennedy,Azeb ?MR#: [id number] ?? 4 ? : 1945 ?Acct:[id number] ? Age/Sex: 78 / F ?ADM Date: 02/11/24 ? Loc: HO.XRAY ? Attending Dr: Edward Welsh MD ? Ordering Physician: Edward Welsh MD ?? Date of Service: 02/11/24 ?? Procedure(s): XR knee LT 3V ?? Accession Number(s): [id number] ? cc: Edward Welsh MD; Name,Hill HERNANDEZ ? EXAMINATION: ?? XR RIGHT KNEE AND XR LEFT KNEE ? CLINICAL INFORMATION: ?? Pain in right knee M25.561. ? COMPARISON: ?? XR Left knee 12/07/2019; XR Right knee 07/14/2010 (reports only). ? TECHNIQUE: ?? Three views of left knee and three views of right knee. ? FINDINGS: ?? There is loss of medial and patellofemoral compartment joint space with ?? periarticular spurring. No acute fracture, loose bodies or joint ?? effusion seen. The soft tissues are normal. ? XR/XR knee LT 3V ?? IMPRESSION: ?? Mild degenerative changes medial and patellofemoral compartment. ? No visible acute fracture, dislocation or lytic process seen. ? Electronically signed by: ??Armando Patsy MD ??2024 07:12 AM EST RP ? Dictated By: ?Patsy,Armando S MD ? Signed By: ?<Electronically signed by Armando S Patsy, MD in OV> ?03/12/24 0712 ? DD/ 1146 ? TD/TT: 12/17/24 1205 ? [employer] Law Clerk: MSM ? Procedure Note Donotuseinterpreter, Image - [address] [address] XRay Report Signed Patient: Abraham Kennedy#: [id number] 4 : 8Acct:[id number] Age/Sex: 78 / FADM Date: 02/11/24 Loc: HO.SHAUNAY Attending Dr: Edward Welsh MD Ordering Physician: Edward Welsh MD Date of Service: 02/11/24 Procedure(s): XR knee LT 3V Accession Number(s): [id number] cc: Edward Welsh MD; Name,Hill HERNANDEZ EXAMINATION: XR RIGHT KNEE AND XR LEFT KNEE CLINICAL INFORMATION: Pain in right knee M25.561. COMPARISON: XR Left knee 12/07/2019; XR Right knee 07/14/2010 (reports only). TECHNIQUE: Three views of left knee and three views of right knee. FINDINGS: There is loss of medial and patellofemoral compartment joint space with periarticular spurring. No acute fracture, loose bodies or joint effusion seen. The soft tissues are normal. XR/XR knee LT 3V IMPRESSION: Mild degenerative changes medial and patellofemoral compartment. No visible acute fracture, dislocation or lytic process seen. Electronically signed by: Armando Garner MD 2024 07:12 AM [facility] Dictated By: Armando Garner MD Signed By: <Electronically signed by Armando Garner MD in OV> 03/12/24 0712 DD/ 1146 TD/TT: 02/11/[address] Law Clerk: MIRIAM [facility] External Provider IMG XR PROCEDURES Edited Result - Final * Albumin, Random Urine W/Creatinine (09/09/2023 8:50 AM EDT) Creatinine, Urine 75.51 mg/dL [facility] Microalbumin Urine 7.0 mg/L [facility] Microalbum Creatinine Ratio Ur 9.2 <30 ug/mg cr [facility] Comment:Albumin/Creatinine R atio Reference Ranges: Normal: < 30 ug/mg creatinine Microalbuminuria: 30 - 300 ug/mg creatinineClinical Albuminuria: > 300 ug/mg creatinine Urine (Urine, Random) 09/09/2023 8:50 AM EDT 09/09/2023 11:13 AM EDT us Hill Dickson MD LAB URINE ORDERABLES Final Resul t Performing Organization Address [facility] de Phone Number [facility] [address] [place] [phone] * (ABNORMAL) Lipid Panel, Standard (09/09/2023 8:42 AM EDT) Triglycerides 119 <150 mg/dL [facility] Comment:Desirable Triglyceri de: less than 150 mg/dLBorderline High Triglyceride 150-199 mg/dLHigh Triglyceride: 200-499 mg/dLVery High Triglyceride: greater than or equal to 5OO mg/dL Cholesterol 190 <200 mg/dL [facility] Comment:Desirable Cholestero l: less than 200 mg/dLBorderline High Cholesterol: 200-239 mg/dLHigh Cholesterol: greater than 239 mg/dL LDL Cholesterol Calculated 102(H) <100 mg/dL [facility] Comment:Desirable LDL: less than 100 mg/dLNear Optimal/Above Optimal LDL: 110- 129 mg/dLBorderline High LDL: 130-159 mg/dLHigh LDL: 160-189 mg/dLVery High LDL: greater than or equal to 190 mg/dL HDL Cholesterol 65 >40 mg/dL [facility] Comment:Desirable HDL: great er than 40 mg/dL Note: This HDL assay may give artificially low results in patients with liver disease. Blood Venous blood specimen / Unknown 09/09/2023 8:42 AM EDT 09/09/2023 11:04 AM EDT us Hill Dickson MD LAB BLOOD ORDERABLES Final Resul t Performing Organization Address City/[facility] Co de Phone Number [facility] [address] [place] [address] [phone] * Diabetes Eye Exam (03/22/2023) Eye Exam Normal Normal, BIRADS 0 , BIRADS 1 , BIRADS 2, BIRADS 3 , BIRADS 4+ us Alejandre Name HEALTH MAINTENANCE Final Result * Colonoscopy (03/03/2014 2:40 PM EST) Colonoscopy Normal Normal Narrative Hafsa Lares - 03/03/2014 2:40 PM EST Recommended 10 year follow up [facility] Provider HEALTH MAINTENANCE Final Result * Hepatitis C Antibody (09/15/2012) Hepatitis C Antibody Nonreactive Blood Hillesme Dickson MD HEALTH MAINTENANCE Final Result from Last 3 Months or Most Recently Relevant to Health Maintenance Insurance [facility] STANDARD [facility] [place] [facility] Care Teams Case Checker Relationship Specialty Start Date End Date Name, MD Hill [address] [place] [phone] PCP - General Family Medicine 03/15/15
--- OUTSIDE RECORDS SUMMARY | 2024-04-20 10:35 | XMS_ITS | Encounter Summary ---
Author Organization [employer] Address [address] [facility] 7t [place] [address] Care Team Providers Care Gas Appliance Repairer Name Role Phone Name, Hill HERNANDEZ Primary Care Provider Encounter Details Date Type Department Care Team ([facility] Contact Info) Description 03/26/2022 Orders Only [facility] MEDICINE [address] [place] [phone] Jane Oneill LPN Social History Tobacco Use Types Packs/Day Years Used Date Smoking Tobacco: Never Assessed Comments Unknown Sex and Gender Information Value Date Recorded Sex Assigned at Female 12/25/2021 10:17 AM EDT Legal Sex Female 10:17 AM EDT Gender Identity Female 12/25/2021 10:17 AM EDT Sexual Orientation Straight 12/25/2021 10 :17 AM EDT COVID-19 Exposure Response Date Recorded In the last 10 days, have yo u been in contact with someone who was confirmed or suspected to have Coronavirus/COVID-19? No / Unsure 03/08/2022 12:45 PM EST documented as of this encounter Plan of Treatment Upcoming Encounters Date Type Department Care Team (Late Contact Info) Description 06/16/2024 1:45 PM EDT Office Visit [facility] MEDICINE [address] [place] [address] Name, MD Hill [address] [place] [address] documented as of this encounter Visit Diagnoses Not on filedocumented in this encounter Care Teams Gas Appliance Repairer Relationship Specialty Start Date End Date Name, MD Hill [address] [place] [address] PCP - General Family Medicine 03/15/15 documented as of this encounter
--- OUTSIDE RECORDS SUMMARY | 2024-04-20 10:35 | XMS_ITS | Encounter Summary ---
Author Organization [employer] Address [address] [facility] 7t [place] [address] Care Team Providers Care Mechanic Sound Technician Name Role Phone Name, Hill HERNANDEZ Primary Care Provider [phone] Reason for Visit * Reason Onset Date Comments triage 07/19/2022 Encounter Details Date Type Department Care Team ([facility] st Contact Info) Description 07/19/2022 Telephone [facility] MEDICINE [address] [place], [place] [phone] Name, MD Hill [address] [place] [address] triage Social History Tobacco Use Types Packs/Day Years [...] suspected to have Coronavirus/COVID-19? No / Unsure 07/20/2022 12:49 PM EDT documented as of this encounter Miscellaneous Notes * Telephone Encounter - Betsy Forrest RN - 07/19/2022 10:55 AM EDT Call to Azeb Kennedy, reports having difficulty with sleeping. Per pt taking tfirst dose of Remeron 8mg. Fell asleep at 1a-3a. Per pt first dose taken last night. Per pt wantst o know if can take 2 of this medication. Pt educated that should trial a medication at least 1 week to see if truly nothelping with sleep. Educated pt on good sleep hygiene and things to avoid prior to going to sleep. P t offered appt with PCP on 07/26. Pt unable due to conflicting GI appt. PT advised to call next week if still having difficulty with insomnia while taking new medication. Pt agrees to call Saturday if no improvement. Sent to PCP and team as FYI and follow up PRN. Protocol Used: Insomnia (Adult) Protocol-Based Disposition: Home Care Positive Triage Question: * Difficulty falling to sleep or staying asleep * All higher-acuity triage questions were negative Care Advice Discussed: * Reassurance and Education * Tips for Good Sleep * Tips for Good Sleep - What To Avoid * Reasons To Call Back - Insomnia symptoms persist over 2 weeks - You become worse * Telephone Encounter - Tank Russell - 07/19/2022 9:45 AM EDT Symptoms: Lethargic (Tired), Sleeping Difficulty Outcome: Schedule an urgent appointment (within 4 hours) or talk to a nurse or provider soon Reason: Getting worse The caller accepted this outcome speaks [place] documented in this encounter Plan of Treatment Upcoming Encounters Date Type Department Care Team (Late st Contact Info) Description 06/16/2024 1:45 PM EDT Office Visit [facility] MEDICINE [address] [place] [address] Name, MD Hill [address] [place] [address] documented as of this encounter Visit Diagnoses Not on filedocumented in this encounter Additional Health Concerns Assessment Noted Time PHQ-9 Depression Total Score: 19 023 1:35 PM EDT documented as of this encounter Care Teams Mechanic Sound Technician Relationship Specialty Start Date End Date Name, MD Hill [address] [place] [address] PCP - General Family Medicine 03/15/15 documented as of this encounter
--- OUTSIDE RECORDS SUMMARY | 2024-04-20 10:35 | XMS_ITS | Encounter Summary ---
Author Organization [employer] Address [address] [facility] 7t [place] [address] Care Team Providers Care Restaurant Team Member Name Role Phone Name, Hill HERNANDEZ Primary Care Provider [phone] Encounter Details Date Type Department Care Team (Latest Contact Info) Description 07/26/2021 Abstract [facility] CONVERSIONS Dental, Provider, DDS Social History Tobacco [...] Description 06/16/2024 1:45 PM EDT Office Visit [facility] MEDICINE [address] [place] [address] Name, MD Hill [address] [place] [address] documented as of this encounter Visit Diagnoses Not on filedocumented in this encounter Care Teams Restaurant Team Member Relationship Specialty Start Date End Date Name, MD Hill [address] [place] [address] PCP - General Family Medicine 03/15/15 documented as of this encounter
--- OUTSIDE RECORDS SUMMARY | 2024-04-20 10:35 | XMS_ITS | Encounter Summary ---
Author Organization [employer] Address [address] [facility] 7t [place] [address] Care Team Providers Care Habitat Management Coordinator Name Role Phone Name, Hill HERNANDEZ Primary Care Provider [phone] Encounter Details Date Type Department Care Team (Late st Contact Info) Description 07/30/[address] [facility] MEDICINE [address] [place] [address] [phone] Name, MD Hill [address] [place] [address] [phone] Social History Tobacco Use Types Packs/Day Years [...] PM EDT documented as of this encounter Plan of Treatment Upcoming Encounters Date Type Department Care Team (Late st Contact Info) Description 06/16/2024 1:45 PM EDT Office Visit [facility] MEDICINE [address] [place] [address] [phone] Name, MD Hill [address] [place] [address] [phone] documented as of this encounter Procedures Procedure Name Priority Date/Time Associated Diagnosis Comments COLONOSCOPY Routine 03/03/2014 2:40 PM EST documented in this encounter Results * Colonoscopy (03/03/2014 2:40 PM EST) Colonoscopy Normal Normal Narrative Hafsa Lares - 03/03/2014 2:40 PM EST Recommended 10 year follow up us Historical Provider HEALTH MAINTENANCE Final Result documented in this encounter Visit Diagnoses Not on filedocumented in this encounter Additional Health Concerns Assessment Noted Time PHQ-9 Depression Total Score: 19 023 1:35 PM EDT documented as of this encounter Care Teams Habitat Management Coordinator Relationship Specialty Start Date End Date Name, MD Hill [address] [place] [address] PCP - General Family Medicine 03/15/15 documented as of this encounter
--- OUTSIDE RECORDS SUMMARY | 2024-04-20 10:35 | XMS_ITS | Encounter Summary ---
Author Organization [employer] Address [address] [facility] 7t [place] [address] Care Team Providers Care Pig Machine Supervisor Name Role Phone Name, Hill HERNANDEZ Primary Care Provider [phone] Reason for Visit * Reason Onset Date Comments Med Refill telephone call 10/20/2022 METHOD CONSULTANT Services 10/20/2022 The pt requested to have her METHOD CONSULTANT services reinstated by CHUYITA. I called to inform her, that she needs to contact her insurance [facility] to make the request, because the referral needs to go through them. I reached a voicemail, and left a msg with the above information. I asked her to contact me at ext [phone], if she has any questions. Encounter Details Date Type Department Care Team (Late st Contact Info) Description 10/20/2022 Refill [facility] MEDICINE [address] [place] [address] Name, MD Hill [address] [place] [address] Social History Tobacco Use Types Packs/Day Years Used Date Smoking Tobacco: Never Smokeless Tobacco: Never Alcohol Use Standard Drinks/Week Comments Never 0 [...] encounter Miscellaneous Notes * Telephone Encounter - Arin Dariel, [place] - 10/25/2022 10:36 AM EDT The pt requested to have her METHOD CONSULTANT services reinstated by [facility]. I called to inform her, that she needs to contact her insurance [facility] to make the request, because the referral needs to go through them. I reached a voicemail, and left a msg with the above information. I asked her to contact me at ext [phone], if she has any questions. * Telephone Encounter - Hope Zora - 10/22/2022 10:20 AM EDT Pt walked in requesting a call from PCP or nurses, because she has a question about vacuum cleaner mechanic services and a form that her pcp signed and she has not hear anything from no one she doesn't specify exactly what she needs, she just wants the call. I told her to go to medical records she said they don't havethe form. Best # to call is [phone] documented in this encounter Plan of Treatment Upcoming Encounters Date Type Department Care Team (Late st Contact Info) Description 06/16/2024 1:45 PM EDT Office Visit [facility] MEDICINE [address] [place] [phone] Name, MD Hill [address] [place] [address] documented as of this encounter Visit Diagnoses Not on filedocumented in this encounter Additional Health Concerns Assessment Noted Time PHQ-9 Depression Total Score: 19 023 1:35 PM EDT documented as of this encounter Care Teams Pig Machine Supervisor Relationship Specialty Start Date End Date Name, MD Hill [address] [place] [address] PCP - General Family Medicine 03/15/15 documented as of this encounter
--- OUTSIDE RECORDS SUMMARY | 2024-04-20 10:35 | XMS_ITS | Encounter Summary ---
Author Organization [employer] Address [address] [facility] 7t [place] [address] Care Team Providers Care Nuclear Chemistry Technician Name Role Phone Name, Hill HERNANDEZ Primary Care Provider [phone] Encounter Details Date Type Department Care Team (Latest Contact Info) Description 04/15/2018 Abstract [facility] CONVERSIONS Dental, Provider, DDS Social History Tobacco [...] Description 06/16/2024 1:45 PM EDT Office Visit [facility] MEDICINE [address] [place] [address] Name, MD Hill [address] [place] [address] documented as of this encounter Visit Diagnoses Not on filedocumented in this encounter Care Teams Nuclear Chemistry Technician Relationship Specialty Start Date End Date Name, MD Hill [address] [place] [address] PCP - General Family Medicine 03/15/15 documented as of this encounter
--- OUTSIDE RECORDS SUMMARY | 2024-04-20 10:35 | XMS_ITS | Patient Health Record ---
Author Organization [facility] Address [address] [place] [address] Care Team Providers Care Speech Therapy Teacher Name Role Phone Name Hill HERNANDEZ Primary Care Provider James Kaur [phone] ALLERGIES No Known Allergies REASON FOR REFERRAL No Information MEDICATIONS Medication SIG (Take, Route, Frequency, Duration) Notes Start Date End Date Status Amitriptyline HCl 25 MG 1 tablet at bedt juan josé Orally Once a day Active Tylenol 8 Hour Arthritis Pain 650 MG 2 tablets as needed Orally every 8 hrs Active Omeprazole 20 MG TAKE 1 CAPSULE BY [facility] DAILY IN THE MORNING Oral for 30 Active Pravastatin Sodium 10 MG 1 tablet Orally Once a day Active Fish Oil Active Lisinopril 2.5 MG 1 tablet Orally Once a day Active Melatonin Active metFORMIN HCl 850 MG 1 tablet with a marly l Orally Once a day Active IMMUNIZATIONS Vaccine Route Administration Date Status Comme nts Influenza Unknown 06/04/2019 Refused Influenza Unknown 12/21/2020 Refused SOCIAL HISTORY Sex Assigned At : Social History Observation Description Sex Assigned At Unknown PROBLEMS Problem Type ICD Code Onset Dates Problem Status W/U Status Risk SNOMED Code Notes Problem Colon cancer screening (Z12.11) Active confirmed 459908460 Problem Gastroesophageal reflux disease without esophagitis (K21.9) Active confirmed 875854119 Problem Gastroesophageal reflux disease, esophagitis presence not specified (K21.9) Active confirmed 175150591 Problem Constipation, unspecified constipation type (K59.00) Active confirmed 77064739 PLAN OF TREATMENT Future Test Test Name Order Date COLONOSCOPY 12/02/2013 Next Appt Details Provider Name:James Easton , 06/09/2024 10:10:00 AM, [address], [address], [place], [address], Insurance Providers Payer Name Payer Address Payer Phone Subscriber Number Group Number Insured Name Patient Relationship to Insured Coverage Start Date Coverage End Date [facility] [address] [address] [place] [address] [id number] RAFFAELE CHUNG Self - patient is the insured Medicare of [place] [employer] [address] [place] [address] [id number] RAFFAELE CHUNG Self - patient is the insured MEDICAL (GENERAL) HISTORY Medical History History ICD Code Tubular adenomas removed in 2004. She had negative followup colonoscopies in 06/2008 and in 02/2014. Diverticulosis GERD--EGD in 2004-small HH--no sig. esop hagitis nor Mccall's Denies NE,CVA,Lung disease,renal disease NIDDM Surgical History Surgery Date(Month/Year) Cholecystectomy Tubal ligation Hysterectomy with ? removal of one ovary Breast reduction Left foot 08/2021
--- OUTSIDE RECORDS SUMMARY | 2024-04-20 10:35 | XMS_ITS | Encounter Summary ---
Author Organization [employer] Address 75 [facility] 7t [place] [address] Care Team Providers Care Consultant Luxury And Auto. Vice President [employer] (Ex ) Name Role Phone Name, Hill HERNANDEZ Primary Care Provider [phone] Encounter Details Date Type Department Care Team (Latest Contact Info) Description 01/06/2020 Abstract [facility] CONVERSIONS Dental, Provider, DDS Social History [...] Description 06/16/2024 1:45 PM EDT Office Visit [facility] MEDICINE [address] [place] [address] Name, MD Hill [address] [place] [address] documented as of this encounter Visit Diagnoses Not on filedocumented in this encounter Care Teams Consultant Luxury And Auto. Vice President [employer] (Ex ) Relationship Specialty Start Date End Date Name, MD Hill [address] [place] [address] PCP - General Family Medicine 03/15/15 documented as of this encounter
--- OUTSIDE RECORDS SUMMARY | 2024-04-20 10:35 | XMS_ITS | Encounter Summary ---
Author Organization [employer] Address [address] [facility] 7t [place] [address] Care Team Providers Care Automotive Lot Attendant Name Role Phone Name, Hill HERNANDEZ Primary Care Provider [phone] Reason for Visit * Reason Onset Date Comments Pre Op 10/02/2023 Encounter Details Date Type Department Care Team (Late st Contact Info) Description 10/02/2023 Telephone [facility] MEDICINE [address] [place], [place] [phone] Name, MD Hill [address] [place] [address] Pre Op Social History Tobacco Use Types Packs/Day Years Used Date Smoking Tobacco: Never Smokeless Tobacco: Never Alcohol Use Standard Drinks/Week Comments Never 0 (1 standard drink = 0.6 oz pur e alcohol) Depression Answer Date Recorded Patient Health Questionnaire-9 Score 12 05/09/2023 Patient Health Questionnaire-9 Score 12 05/09/2023 Last PHQ-9: Questionnaire Data Not on file 0 05/09/2023 Housing Stability Answer Date Recorded What is your housing situation today? I have richy rolon 12/17/[address] you li ve. Do you have problems with any of the following? None of the above 12/17/2022 Food Insecurity Answer Date Recorded Within the past 12 months, y ou worried that your food would run out before you got money to buy more: Never True 12/17/2022 Within the past 12 months,th e food [...] shut off services in your home? No 12/17/2022 Depression Answer Date Recorded Patient Health Questionnaire-2 Score 4 05/09/2023 Comments Unknown Sex and Gender Information Value Date Recorded Sex Assigned at Female 12/25/2021 10:17 AM EDT Legal Sex Female 10:17 AM EDT Gender Identity Female 12/25/2021 10:17 AM EDT Sexual Orientation Straight 12/25/2021 10 :17 AM EDT documented as of this encounter Miscellaneous Notes * Telephone Encounter - Cesia Duong - 10/03/2023 10:56 AM EDT Pt agreed to come in on 10/11/23 at 09:45AM for pre op appointment. * Telephone Encounter - Anant Solano - 10/02/2023 2:30 PM EDT Date of Surgery: 10/14 Surgical procedure being done: Cataracts Type of anesthesia: MAC Lab needed: No EKG: No Surgeon's name: Tomás Hopkins Facility name: [facility] Surgeon's office number: [phone] Surgeon's office fax number: [phone] Contact name: Yohana documented in this encounter Plan of Treatment Upcoming Encounters Date Type Department Care Team (Late st Contact Info) Description 06/16/2024 1:45 PM EDT Office Visit [facility] MEDICINE [address] [place] [address] Name, MD Hill [address] [place] [address] documented as of this encounter Visit Diagnoses Not on filedocumented in this encounter Additional Health Concerns Assessment Noted Time PHQ-9 Depression Total Score: 12 024 1:00 PM EDT documented as of this encounter Care Teams Automotive Lot Attendant Relationship Specialty Start Date End Date Name, MD Hill [address] [place] [address] PCP - General Family Medicine 03/15/15 documented as of this encounter
--- OUTSIDE RECORDS SUMMARY | 2024-04-20 10:36 | XMS_ITS | Clinical Summary ---
Author Organization [address] [place] [address] Address [address] [place] [address] Phone Care Team Providers Care Director Software Quality Assurance Name Role Phone Gina Fonseca MD Primary Care Provider Allergies No known active allergies Medications celecoxib (CeleBREX) 200 mg capsule Take 1 capsule (200 mg total) by mouth 2 (two) times a day. 4 Active empagliflozin (Jardiance) 10 mg tablet Take 1 tablet (10 mg total) by mouth 1 (one) time each day in the morning. 4 Active metFORMIN (GLUCOPHAGE) 850 mg tablet TAKE 1 TABLET BY MOUTH TWICE DAILY, WITH BREAKFAST AND WITH DINNER. 3 Active OneTouch Ultra Test test strip TEST BLOOD SUGAR THREE TIMES DAILY 3 Active lancets (OneTouch Delica Plus Lancet) 33 gauge TEST BLOOD SUGAR THREE TIMES DAILY 3 Active omeprazole (PriLOSEC) [address] capsule Take 1 capsule (20 mg total) by mouth 1 (one) time each day in the morning. 3 Active SUMAtriptan (IMITREX) 25 mg tablet TAKE 1 TABLET BY MOUTH AT ONSET OF MIGRAINE. MAY REPEAT ONCE AFTER 2 HOURS IF NEEDED NO MORE THAN 2 TABLETS IN 24 HOURS 3 Active diclofenac (VOLTAREN) 1 % topical gel Apply 4 g topically 2 times daily. 2 Active metFORMIN (GLUCOPHAGE) 500 mg tablet Take 1 tablet (500 mg total) by mouth 2 (two) times a day with meals. 6 Active amitriptyline (ELAVIL) 25 mg tablet Take 1-2 tabs at bedtime 5 Active lisinopriL (PRINIVIL,ZESTR IL) 2.5 mg tablet Take 1 tablet (2.5 mg total) by mouth 1 (one) time each day. 5 Active pravastatin (PRAVACHOL) 10 mg tablet Take 1 tablet (10 mg total) by mouth 1 (one) time each day. 5 Active Active Problems Problem Noted Date Diagnosed Date Known medical problems 05/18/2014 Overview (11/29/2023): Diabetes mellitus type 2, uncontrolled HTN (hypertension) 07/08/2012 Insomnia 07/08/2012 Encounters Date Type Department Care Team Description 04/09/2024 1:00 PM EST Office Visit Orthopedic Surgery - [address] [address] Vicente Pearce, DPM Hallux rigidus of left foot (Primary Dx); Hallux rigidus of right foot; Dermatophytosis of nail; Pain in toe of left foot; Pain in toe of right foot; Difficulty walking from Last 3 Months Immunizations Name Administration Dates Next Due PPD Test 05/19/2014 Pneumococcal polysaccharide 23 valent (Pneumovax 23) 2yo and older 07/08/2012 Td Tetanus diptheria (Tdvax) 7yo and older 07/08 Zoster Live 12/02/2013 Surgical History Surgery Date Site/Laterality Comments TUBAL LIGATION PROCEDURE: HISTORICAL TUBAL LIGATION CHOLECYSTECTOMY PROCEDURE: HISTORICAL CHOLECYSTECTOMY HYSTERECTOMY PROCEDURE: HISTORICAL HYSTERECTOMY OTHER SURGICAL HISTORY PROCEDURE: ---- OTHER ----; COMMENT: laser for varicose veins of the right leg BREAST REDUCTION 2009 Bilateral PROCEDURE: [place] BREAST REDUCTION Medical History Medical History Date Comments Unspecified essential hypertension DX:Unspecified essential hypertension DM type 2 (diabetes mellitus , type 2) ([facility] 12/24/2012 DX:DM type 2 (diabetes melli tus, type 2) ([facility]) Family History Medical History Relation Name Comments Cataracts Father Glaucoma Father Breast cancer Mother 75 Breast cancer Sister 1 70 Blindness Neg Hx Macular degeneration Neg Hx Strabismus Neg Hx Relation Name Status Comments Daughter Alive HTN Father NM and DM Mother 75 Breast cancer Sister 1 70 Alive breast cancer Sister 2 Alive Son 1 Alive Son 2 Alive HTN Social History Tobacco Use Types Packs/Day Years Used Date Smoking Tobacco: Never Smokeless Tobacco: Never Alcohol Use Standard Drinks/Week Comments Yes 0 (1 standard drink = 0.6 oz pur e alcohol) Comments Unknown Sex and Gender Information Value Date Recorded Sex Assigned at Not on file Legal Sex Female 4:34 AM EST Gender Identity Not on file Sexual Orientation Not on file Obstetrics History Last Filed Vital Signs Vital Sign Reading Time Taken Comments Blood Pressure - - Pulse - - Temperature - - Respiratory Rate - - Oxygen Saturation - - Inhaled Oxygen Concentration - - Weight 71.7 kg (158 lb) 04/09/2024 12:49 PM EST Height 152.4 cm (5') 04/09/2024 12:49 PM EST Body Mass Index 30.86 04/09/2024 12:49 PM EST Plan of Treatment Upcoming Encounters Date Type Department Care Team (Late st Contact Info) Description 06/09/2024 10:00 AM EDT Office Visit Orthopedic Surgery - [place] [address] [address] Vicente Pearce, DPM [address] [address] Health Maintenance Due Date Last Done Comments Diabetes: Annual Foot Exam 1955 Diabetes: Annual Retina Eye Exam 1955 Zoster Vaccines (2 of 3) 01/27/2014 12/02/2013 Falls Risk Assessment 01/28/2022 Medicare Annual Wellness Visit 01/28/2022 Osteoporosis Screening (Bone Density Screening) 01/28/2022 Social Influencers of Health Screening 01/28/2022 RSV Immunization Patients 60+ Years Old (1 - 1-dose 75+ series) 2022 COVID-19 Vaccine ( season) 2023 03/08/2022, 01/04/2021, 06/25/2020, Additional history exists Influenza Vaccine (#1) 2023 11/15/2008 Diabetes: Annual Urine Albumin-Creatinine Ratio (uACR) 01/08/2024 08/27/2014 Diabetes: Blood Sugar Control Test (HGBA1C) 09/14/2024 03/17/2024, 08/12/2023, 04/04/2015 Diabetes: Annual GFR (Glomerular Filtration Rate) 11/17/2024 11/18/2023, 04/04/2015 Hypertension/CHF/CAD Annual BMP Blood Test 11/17/2024 11/18/2023, 04/04/2015 Depression Screening 03/17/2025 03/17/2024 Cholesterol Screening (Lipid Panel) 09/08/2028 09/09/2023, 04/04/2015 DTaP,Tdap,and Td Vaccines (5 - Td or Tdap) 10/31/2030 10/31/2020, 07/31/2017, 05/19/2014, Additional history exists Hepatitis C Screening Completed 09/15/2012 Pneumococcal Vaccine: 50+ Years Completed 11/20/2016, 07/08/2012 Breast Cancer Screening Discontinued 08/12/19 19, 08/08/2017, 08/07/2016 HIB Vaccines Aged Out No longer eligi [...] on patient's age to complete this topic MMR Vaccines Aged Out No longer eligi ble based on patient's age to complete this topic Meningococcal ACWY Vaccine Aged Out N o longer eligible based on patient's age to complete this topic Meningococcal B Vacine Aged Out No lo nger eligible based on patient's age to complete this topic RSV Immunization Patients Under 20 months Aged Out No longer eligible based on patient's age to complete this topic Varicella Vaccines Aged Out No longer eligible based on patient's age to complete this topic Procedures Procedure Name Priority Date/Time Associated Diagnosis Comments SCR MAMMO BI INCL CAD Routine 08/11/2018 1:13 PM EDT Encounter for screening mammogram for malignant neoplasm of breast ANNUAL BMP BLOOD TEST Routine 04/04/2015 HEMOGLOBIN A1C Routine 04/04/2015 LIPID PANEL Routine 04/04/2015 URINE ALBUMIN CREATININE RATIO Routine 08/27/2014 HEPATITIS C SCREENING Routine 09/15/2012 from Last 3 Months or Most Recently Relevant to Health Maintenance Results * SCR MAMMO BI INCL CAD (08/11/2018 1:13 PM EDT) Anatomical Region Laterality Modality Radiographic Cheryl ging 08/08/2017 12:2 2 PM EDT Narrative 08/12/2018 4:43 PM EDT This is a summary report. The complete report is available in the patient's medical record. If you cannot access the medical record, please contact the sending organization for a detailed fax or copy. Full field digital screening mammography, reviewed with CAD and compared to previous. ??The breasts are composed of fatty and fibroglandular tissue. ??No suspicious mass, architectural distortion or suspicious calcifications are identified. Small benign oval mass left breast stable when compared with prior studies as remote as 07/17/2012. IMPRESSION: : No mammographic evidence of malignancy. BIRADS 1-Negative; N. 5 year breast cancer risk assessment 5.7 % Lifetime breast cancer risk assessment 15.0 % Breast cancer risk category Low (<15%) Procedure Note Bhavesh Newberry - 02/13/2022 This is a summary report. The complete report is available in thepatient's medical record. If you cannot access the medical record, pleasecontact the sending organization for a detailed fax or copy. Full field digital screening mammography, reviewed with CAD and comparedto previous. The breasts are composed of fatty and fibroglandular tissue.No suspicious mass, architectural distortion or suspicious calcificationsare identified. Small benign oval mass left breast stable when comparedwith prior studies as remote as 07/17/2012. IMPRESSION: : No mammographic evidence of malignancy. BIRADS 1-Negative; N. 5 year breast cancer risk assessment 5.7 % Lifetime breast cancer risk assessment 15.0 % Breast cancer risk category Low (<15%) us Hill Name MD BROWN XR PROCEDURES Final Result * Annual BMP Blood Test (04/04/2015) Annual BMP Blood Test abstracted us Historical Provider HEALTH MAINTENANCE Final Result * (ABNORMAL) Hemoglobin A1c (04/04/2015) Pathologist [facility] Hemoglobin A1C 6.5(A) 4.0 - 6.0 % Blood Venous blood specimen / Unknown Result [facility] Provider LAB BLOOD ORDERABLES Lina l Result * (ABNORMAL) Lipid panel (04/04/2015) Pathologist [facility] LDL/HDL Ratio 4 0 - 4 Triglycerides 223(A) 0 - 150 mg/dL Cholesterol 194 0 - 200 mg/dL HDL 1(A) >=40 mg/dL LDL Cholesterol 96 0 - 100 mg/dL Blood Venous blood specimen / Unknown Result [facility] Provider LAB BLOOD ORDERABLES Lina l Result * Urine Albumin Creatinine Ratio (08/27/2014) Pathologist [facility] Urine Albumin Creatinine Ratio abstracted Result [facility] Provider HEALTH MAINTENANCE Final Result * Hepatitis C Screening (09/15/2012) Pathologist [facility] Hepatitis C Screening abstracted Result [facility] Provider HEALTH MAINTENANCE Final Result from Last 3 Months or Most Recently Relevant to Health Maintenance Insurance [facility] MEDICARE Member Subscriber Plan / Payer (Ef fective 2023-Present) Name:Azeb Kennedy Relation to Subscriber:Self Name:Azeb Kennedy Payer ID:[id number] Group ID:[id number] Type:Not on file Address: [place] [address] [address] [id number] Care Teams Director Software Quality Assurance Relationship Specialty Start Date End Date Gina Fonseca MD [address] [place], [place] PCP - General Internal Medicine 10/16/21
--- OUTSIDE RECORDS SUMMARY | 2024-04-20 10:36 | XMS_ITS | Encounter Summary ---
Author Organization [employer] Address [address] [facility] 7t [place] [address] Care Team Providers Care Senior Marketing Analyst Name Role Phone Name, Hill HERNANDEZ Primary Care Provider [phone] Reason for Visit * Reason Onset Date Comments Call Back Request 02/01/2023 Encounter Details Date Type Department Care Team ([facility] st Contact Info) Description 02/01/2023 Telephone [facility] MEDICINE [address] [place], [place] [phone] Name, MD Hill [address] [place] [address] Call Back Request Social History Tobacco Use Types Packs/Day Years Used Date Smoking Tobacco: Never Smokeless Tobacco: Never Alcohol Use Standard Drinks/Week Comments Never 0 (1 standard drink = 0.6 oz pur e alcohol) Depression Answer Date Recorded Patient Health Questionnaire-9 Score 19 07/03/2022 Housing Stability Answer Date Recorded What is [...] Telephone Encounter - Bryant Friedman RN - 02/05/2023 2:16 PM EST T/C to pt. Through [employer] id - [id number] for below message to inform submit paperwork regarding PREDATORY ANIMAL EXTERMINATOR hours at medical records/ forms dept. Pt. Verbally agreed and understood. * Telephone Encounter - Aylin Duncan - 02/01/2023 3:37 PM EST Tc from pt requesting a call back in regards paperwork for PREDATORY ANIMAL EXTERMINATOR hours. documented in this encounter Plan of Treatment Upcoming Encounters Date Type Department Care Team (Late st Contact Info) Description 06/16/2024 1:45 PM EDT Office Visit [facility] MEDICINE [address] [place] [address] Name, MD Hill [address] [place] [address] documented as of this encounter Visit Diagnoses Not on filedocumented in this encounter Additional Health Concerns Assessment Noted Time PHQ-9 Depression Total Score: 19 023 1:35 PM EDT documented as of this encounter Care Teams Senior Marketing Analyst Relationship Specialty Start Date End Date NameHill MD [address] [place] [phone] PCP - General Family Medicine 03/15/15 documented as of this encounter
--- OUTSIDE RECORDS SUMMARY | 2024-04-20 10:36 | XMS_ITS | Encounter Summary ---
Author Organization [employer] Address [address] [facility] 7t [place] [address] Care Team Providers Care Meter Attendant Name Role Phone Name, Hill HERNANDEZ Primary Care Provider [phone] Reason for Visit * Reason Onset Date Comments FYI 05/07/2023 Encounter Details Date Type Department Care Team ([facility] st Contact Info) Description 05/07/2023 Telephone [facility] MEDICINE [address] [place], [place] [phone] Name, MD Hill [address] [place] [address] FYI Social History Tobacco Use Types Packs/Day Years [...] encounter Miscellaneous Notes * Telephone Encounter - Aylin Duncan - 05/07/2023 1:32 PM EDT Tc from Dennise calling to inform PHQA of 15, Dennise also stated they check blood pressure and Charla rojas advised by teletypewriter operator that pt was seen yesterday and have an appt on . Any questions to Dennise [phone] documented in this encounter Plan of Treatment Upcoming Encounters Date Type Department Care Team (Late st Contact Info) Description 06/16/2024 1:45 PM EDT Office Visit [facility] MEDICINE [address] [place] [address] Name, MD Hill [address] [place] [address] documented as of this encounter Visit Diagnoses Not on filedocumented in this encounter Additional Health Concerns Assessment Noted Time PHQ-9 Depression Total Score: 0 03/07/19 24 8:57 AM EST documented as of this encounter Care Teams Meter Attendant Relationship Specialty Start Date End Date Name, MD Hill [address] [place] [address] PCP - General Family Medicine 03/15/15 documented as of this encounter
--- OUTSIDE RECORDS SUMMARY | 2024-04-20 10:36 | XMS_ITS | Encounter Summary ---
Author Organization [employer] Address [address] [facility] 7t [place] [address] Care Team Providers Care Press Brake Operator Name Role Phone Name, Hill HERNANDEZ Primary Care Provider [phone] Reason for Visit * Reason Onset Date Comments Pre-op Visit 04/25/2023 Encounter Details Date Type Department Care Team ([facility] st Contact Info) Description 04/25/2023 Telephone [facility] MEDICINE [address] [place], [place] [phone] Name, MD Hill [address] [place] [address] Pre-op Visit Social History Tobacco Use Types Packs/Day Years Used Date Smoking Tobacco: Never Smokeless Tobacco: Never Alcohol Use Standard Drinks/Week Comments Never 0 (1 standard drink = 0.6 oz pur e alcohol) Depression Answer Date Recorded Patient Health Questionnaire-9 Score 0 03/07/2023 Patient Health Questionnaire-9 Score 0 03/07/2023 Last PHQ-9: Questionnaire Data Not on file 0 03/07/2023 Housing Stability Answer Date Recorded What is [...] Answer Date Recorded Patient Health Questionnaire-2 Score 0 03/07/2023 Comments Unknown Sex and Gender Information Value Date Recorded Sex Assigned at Female 12/25/2021 10:17 AM EDT Legal Sex Female 10:17 AM EDT Gender Identity Female 12/25/2021 10:17 AM EDT Sexual Orientation Straight 12/25/2021 10 :17 AM EDT documented as of this encounter Miscellaneous Notes * Telephone Encounter - Bryant Friedman RN - 04/26/2023 2:18 PM EST T/C to Patricia for below message, pt. Schedule for pre - op on 05/28/2023. Patricia verbally agreed and understood. * Telephone Encounter - Aylin Duncan - 04/25/2023 2:36 PM EST Patricia is asking if pt appt on 05/05 can be switch to a PRE OP Visit. Date of Surgery: 06/12/2023 Surgical procedure being done: Cornea Surgery Type of anesthesia: MAC Lab needed: No EKG: No Surgeon's name: [facility] name: [facility]geon's office number: [phone] Surgeon's office fax number: [phone] Contact name (person you spoke with): Patricia Last office note from surgeon requested documented in this encounter Plan of Treatment Upcoming Encounters Date Type Department Care Team (Late st Contact Info) Description 06/16/2024 1:45 PM EDT Office Visit [facility] MEDICINE [address] [place] [address] Name, MD Hill [address] [place] [address] documented as of this encounter Visit Diagnoses Not on filedocumented in this encounter Additional Health Concerns Assessment Noted Time PHQ-9 Depression Total Score: 0 03/07/19 24 8:57 AM EST documented as of this encounter Care Teams Press Brake Operator Relationship Specialty Start Date End Date Name, MD Hill [address] [place] [address] PCP - General Family Medicine 03/15/15 documented as of this encounter
--- OUTSIDE RECORDS SUMMARY | 2024-04-20 10:36 | XMS_ITS | Encounter Summary ---
Author Organization [employer] Address [address] [facility] 7t [place] [address] Care Team Providers Care Manager General Name Role Phone Name, Hill HERNANDEZ Primary Care Provider [phone] Reason for Visit * Reason Comments Med Refill Encounter Details Date Type Department Care Team ([facility] st Contact Info) Description 03/24/2024 Refill [facility] MEDICINE [address] [place], [place] [phone] Name, MD Hill [address] [place] [address] Social History Tobacco Use Types Packs/Day Years Used Date Smoking Tobacco: Never Passive Smoke Exposure: Never Smokeless Tobacco: Never Alcohol Use Standard [...] Description 06/16/2024 1:45 PM EDT Office Visit [facility] MEDICINE [address] [place] [address] Name, MD Hill [address] [place] [address] documented as of this encounter Visit Diagnoses Not on filedocumented in this encounter Additional Health Concerns Assessment Noted Time PHQ-9 Depression Total Score: 4 03/17/19 25 2:14 PM EST documented as of this encounter Care Teams Manager General Relationship Specialty Start Date End Date Name, MD Hill [address] [place] [address] PCP - General Family Medicine 03/15/15 documented as of this encounter
--- OUTSIDE RECORDS SUMMARY | 2024-04-20 10:36 | XMS_ITS | Encounter Summary ---
Author Organization [employer] Address [address] [facility] 7t [place] [address] Care Team Providers Care Web Ui Developer Name Role Phone Name, Hill HERNANDEZ Primary Care Provider [phone] Encounter Details Date Type Department Care Team (Late st Contact Info) Description 01/21/2023 Telephone [facility] MEDICINE [address] [place], [place] [phone] Name, MD Hill [address] [place] [address] Social History Tobacco Use Types Packs/Day Years Used Date Smoking Tobacco: Never Smokeless Tobacco: Never Alcohol Use Standard Drinks/Week Comments Never 0 (1 standard drink = 0.6 oz pur e alcohol) Depression Answer Date Recorded Patient Health Questionnaire-9 Score 19 07/03/2022 Housing Stability Answer Date Recorded What is your housing situation today? I have richymirella rolon 12/17/[address] you [...] 1:45 PM EDT Office Visit [facility] MEDICINE [address] [place] [address] Name, MD Hill [address] [place] [address] documented as of this encounter Visit Diagnoses Not on filedocumented in this encounter Additional Health Concerns Assessment Noted Time PHQ-9 Depression Total Score: 19 023 1:35 PM EDT documented as of this encounter Care Teams Web Ui Developer Relationship Specialty Start Date End Date NameHill MD [address] [place] [address] PCP - General Family Medicine 03/15/15 documented as of this encounter
--- OUTSIDE RECORDS SUMMARY | 2024-04-20 10:36 | XMS_ITS | Encounter Summary ---
Author Organization [employer] Address [address] [facility] 7t [place] [address] Care Team Providers Care Nurse Private Duty Name Role Phone Name, Hill HERNANDEZ Primary Care Provider Reason for Visit * Reason Comments Hand Pain Encounter Details Date Type Department Care Team ([facility] st Contact Info) Description 04/20/2024 9:00 AM EST Office Visit [facility] [address] [place], [place] [phone] Right wrist tendinitis (Primary Dx); Right hand tendonitis; Cellulitis of right wrist; Acute pain of right shoulder due to trauma Social History Tobacco Use Types Packs/Day Years [...] AM EDT documented as of this encounter Last Filed Vital Signs Vital Sign Reading Time Taken Comments Blood Pressure 140/60 04/20/2024 8:50 AM EST Pulse 84 04/20/2024 8:50 AM EST Temperature 36.9 ??C (98.4 ??F) 04/20/2024 8:50 AM ES T Respiratory Rate 18 04/20/2024 8:50 AM EST Oxygen Saturation - - Inhaled Oxygen Concentration - - Weight 74.5 kg (164 lb 3.2 oz) 04/20/2024 8:50 A M EST Height 157.5 cm (5' 2 ) 04/20/2024 8:50 AM EST Body Mass Index 30.03 04/20/2024 8:50 AM EST documented in this encounter Miscellaneous Notes * Assessment & Plan Note - Tina Powell MD - 04/20/2024 9:37 AM EST Associated Problem(s): Right wrist tendinitis Right hand/wrist immobilized with a splint. Take meloxicam x 1 week and Tylenol as needed Can continue using brace as needed, if symptoms are not resolved, she may need to be referred to OT. * Assessment & Plan Note - Tina Powell MD - 04/20/2024 9:37 AM EST Associated Problem(s): Right hand tendonitis Right hand immobilized with a splint. Take meloxicam x 1 week and Tylenol as needed Can continue using brace as needed, if symptoms are not resolved, she may need to be referred to OT. * Assessment & Plan Note - Tina Powell MD - 04/20/2024 9:36 AM EST Associated Problem(s): Cellulitis of right wrist Most likely related to fall. No evidence of laceration. Take Duricef x 1 week, keep area clean and dry. * Assessment & Plan Note - Tina Powell MD - 04/20/2024 9:36 AM EST Associated Problem(s): Acute pain of right shoulder due to trauma Status post fall. Take meloxicam daily x 1 week then as needed, can take Tylenol as needed every 8 hours as needed pain. If symptoms do not resolve, she may need to follow-up with PCP. documented in this encounter Plan of Treatment Upcoming Encounters Date Type Department Care Team (Late st Contact Info) Description 06/16/2024 1:45 PM EDT Office Visit [facility] MEDICINE [address] [place] [address] Name, MD Hill [address] [place] [address] Scheduled Orders Name Type Priority Associated Diagnoses Orde r Schedule XR Wrist 3+ Views Right Imaging Routine Right hand tendonitis Right wrist tendinitis Expected: 04/20/2024, Expires: 04/20/2025 XR Shoulder 2+ Views Right Imaging Routine Acute pain of right shoulder due to trauma Expected: 04/20/2024 (Approximate), Expires: 04/20/2025 XR Hand 3+ Views Right Imaging Routine Right hand tendonitis Expected: 04/20/2024, Expires: 04/20/2025 documented as of this encounter Visit Diagnoses Diagnosis Right wrist tendinitis- Primary Right hand tendonitis Cellulitis of right wrist Acute pain of right shoulder due to trauma documented in this encounter Additional Health Concerns Assessment Noted Time PHQ-9 Depression Total Score: 4 03/17/19 25 2:14 PM EST documented as of this encounter Care Teams Nurse Private Duty Relationship Specialty Start Date End Date Name, MD Hill [address] [place] [address] PCP - General Family Medicine 03/15/15 documented as of this encounter
--- OUTSIDE RECORDS SUMMARY | 2024-04-20 10:36 | XMS_ITS | Encounter Summary ---
Author Organization [employer] Address 75 [facility] 7t [place] [address] Care Team Providers Care Company Marker Name Role Phone Name, Hill HERNANDEZ Primary Care Provider [phone] Encounter Details Date Type Department Care Team (Late st Contact Info) Description 03/18/2024 Telephone [facility] [address] [place], [place] [phone] Name, MD Hill [address] [place] [address] Social History Tobacco Use Types Packs/Day Years [...] encounter Miscellaneous Notes * Telephone Encounter - Alessandra Campbell RN - 03/24/2024 3:17 PM EST Incoming call from Dinora at [facility] pharmacy. Dinora states pt is willing to pay out of pocket for anew One touch meter as it is too soon for new rx. Dinora states new rx not needed, requesting verbal order. Advised of approved verbal order for new glucometer. * Telephone Encounter - Yazmin Banegas RN - 03/18/2024 11:13 AM EST Triage call with [facility] [place] [id number], Akshat. Pt was seen in OV 03/17/24 and Pt was advised to stop elavil 25mg and start trazadone 50mg po at bedtime. Pt is calling today to request Elavil 25mg be resumed. Pt reports taking trazadone for the first time last night at 10pm and shortly after Pt developed a headache. Pt reports having to take tylenol to relieve headache and sleep was poor. Pt is advised that this information would be forwarded to PCP and nursing team to consider and will contact Pt prn. Pt agrees with this disposition. No further questions offered. Protocol Used: Medication Question Call (Adult) Protocol-Based Disposition: Callback or Video Visit by PCP Today Video visit not offered Positive Triage Question: * Caller has NON-URGENT medicine question about med that PCP or specialist prescribed and triager unable to answer question * All higher-acuity triage questions were negative Care Advice Discussed: * Reasons To Call Back - You have any more questions - You become worse * Telephone Encounter - Shelley Cher Ledesma - 03/18/2024 10:26 AM EST Symptom: Headache Outcome: Schedule an urgent appointment (within 4 hours) or talk to a nurse or provider soon Reason: Getting worse The caller accepted this outcome. [phone] (luxembourgish) documented in this encounter Plan of Treatment Upcoming Encounters Date Type Department Care Team (Late st Contact Info) Description 06/16/2024 1:45 PM EDT Office Visit [facility] [address] [place] [address] Name, MD Hill [address] [place] [address] documented as of this encounter Visit Diagnoses Not on filedocumented in this encounter Additional Health Concerns Assessment Noted Time PHQ-9 Depression Total Score: 4 03/17/19 25 2:14 PM EST documented as of this encounter Care Teams Company Marker Relationship Specialty Start Date End Date NameHill MD [address] [place] [address] PCP - General Family Medicine 03/15/15 documented as of this encounter
--- OUTSIDE RECORDS SUMMARY | 2024-04-20 10:36 | XMS_ITS | Encounter Summary ---
Author Organization [employer] Address [address] [facility] 7t [place] [address] Care Team Providers Care Correctional Counselor/Case Manager Name Role Phone Name, Hill HERNANDEZ Primary Care Provider [phone] Encounter Details Date Type Department Care Team (Late st Contact Info) Description 02/01/[address] [facility] MEDICINE [address] [place], [place] [phone] Name, MD Hill [address] [place] [address] Social History Tobacco Use Types Packs/Day Years [...] 1:45 PM EDT Office Visit [facility] MED[facility]INE [address] [place] [address] Name, MD Hill [address] [place] [address] documented as of this encounter Visit Diagnoses Not on filedocumented in this encounter Additional Health Concerns Assessment Noted Time PHQ-9 Depression Total Score: 19 023 1:35 PM EDT documented as of this encounter Care Teams Correctional Counselor/Case Manager Relationship Specialty Start Date End Date NameHill MD [address] [place] [address] PCP - General Family Medicine 03/15/15 documented as of this encounter
--- OUTSIDE RECORDS SUMMARY | 2024-04-20 10:36 | XMS_ITS | Encounter Summary ---
Author Organization [employer] Address 75 [facility] 7t [place] [address] Care Team Providers Care Escalator Operator Name Role Phone Name, Hill HERNANDEZ Primary Care Provider [phone] Encounter Details Date Type Department Care Team (Late st Contact Info) Description 03/24/2024 Telephone [facility] MEDICINE [address] [place], [place] [phone] Name, MD Hill [address] [place] [address] Social History Tobacco Use Types Packs/Day Years [...] encounter Miscellaneous Notes * Telephone Encounter - Teresa Samson RN - 03/24/2024 10:20 AM EST Tc to pharmacy in regards pt requesting a new one touch monitor, Alessandra answers and reports we couldorder another but insurance will not cover since pt had just picked up the monitor this month. Alessandra reports insurance usually covers the monitor once a year and pt would have to pay out of pocket which is about thirty dollars. Alessandra reports pt could call the company but it may take them a couple days to send in a new monitor. Tc to pt via [facility] id: Justina [id number] to let them know of message above, no answer, lvm to return call and ask to speak to blue team nurses. * Telephone Encounter - Timoteo Rhodes - 03/24/2024 9:27 AM EST Tc from pt requesting new script for glucose monitor ( one touch) pt stated her broke last night and haven't been able to check sugar. documented in this encounter Plan of Treatment Upcoming Encounters Date Type Department Care Team (Late st Contact Info) Description 06/16/2024 1:45 PM EDT Office Visit [facility] MEDICINE [address] [place] [address] Name, MD Hill [address] [place] [address] documented as of this encounter Visit Diagnoses Not on filedocumented in this encounter Additional Health Concerns Assessment Noted Time PHQ-9 Depression Total Score: 4 03/17/19 25 2:14 PM EST documented as of this encounter Care Teams Escalator Operator Relationship Specialty Start Date End Date Name, MD Hill [address] [place] [address] PCP - General Family Medicine 03/15/15 documented as of this encounter
== END 2024-04-20 09:42 | disposition home or self-care (01) ==
LOC: HO.HHCX 09:41
PROVIDERS: Visit Provider Internal Medicine
DX: L03.113 Cellulitis of right upper limb (principal); S69.91XA Unspecified injury of right wrist, hand and finger(s), initial encounter; M25.511 Pain in right shoulder; G89.11 Acute pain due to trauma
CPT/HCPCS: 73030; 73110; 73130

== ENCOUNTER → 2024-04-20 09:41 | Outpatient (BNV) | payer OTHER, SELFPAY | PROVIDERS: Visit Provider Radiology Diagnostic Radiology | DX: M25.511 Pain in right shoulder (principal); M25.531 Pain in right wrist; M79.641 Pain in right hand | CPT/HCPCS: 73030; 73110; 73130 ==

== ENCOUNTER 2024-05-07 09:33 | Outpatient (AMB) | payer OTHER, SELFPAY ==
[2024-05-07 09:52] VITALS: BMI 32.0
--- NOTE | 2024-05-07 09:52 | MHC.OFFVIS ---
Vital Signs 05/07/24 09:52 Height 5 ft Weight 164 lb BMI 32.0 Intake Visit Reasons: THERAPIST PHYS-Pain in both knees Intake Note: Azeb is a 79 year old female who presents today as a new patient for evaluation of bilateral knee pain, left greater than right, that began 1 year ago. Patient reports the pain is located on the posterior aspect of the left knee. Patient shares pain worsens when walking, sitting, standing, bending at the knee, using stairs. Denies numbness or tingling. The patient states that she has had cortisone injections in the past. The most recent injection gave her minimal relief. She has also had viscosupplementation injections which gave her fairly good relief. She has also tried naproxen and Tylenol with minimal relief. Denies prior injuries or surgeries to the knees. The patient wishes to hold off on total knee replacement surgery if at all possible. Medical Review Specialist Required: Yes Medical Review Specialist Language: Ammunition Specialist Name: JuwanKARYN/EVA Allergies No Known Allergies Allergy (Verified 05/07/24 09:52) Medication List - Last Reconciled 05/07/24 by Thiago Adames MD amitriptyline 75 mg PO BEDTIME doxycycline monohydrate 100 mg PO BID lisinopril 2.5 mg PO DAILY melatonin 5 mg PO BEDTIME PRN metformin 500 mg PO BID pravastatin 10 mg PO DAILY tramadol 50 mg PO Q8H PRN PFSH Medical History (Updated 05/08/24 @ 12:46 by Thiago Adames MD) Sacroiliac joint dysfunction Sacroiliitis Low back pain Primary osteoarthritis of knees, bilateral HTN (hypertension) Diabetes Arthritis Surgical History History of hysterectomy History of cholecystectomy Social History Alcohol intake: never Physical Exam Vital Signs: BMI result Body Mass Index 32.0 Const Other: Well-nourished well-developed very friendly female awake alert and oriented x3 in no acute distress Extrem Other: Bilateral lower extremity examination shows good capillary refill, no skin lesions noted, normal sensation light touch Bilateral knee examination shows minimal effusions, palpable crepitus with range of motion, pain with range of motion, no instability Results Reviewed Results Reviewed: X-rays of the patient's bilateral knee show joint space narrowing, subchondral sclerosis, no acute bony abnormalities Assessment & Plan Assessment & Plan (1) Osteoarthritis of left knee: Code(s): M17.12 - Unilateral primary osteoarthritis, left knee Category: Medical (2) Osteoarthritis of right knee: Code(s): M17.11 - Unilateral primary osteoarthritis, right knee Category: Medical Plan Ms. Kennedy presents with bilateral knee pains due to osteoarthritis. I had a lengthy discussion with the patient regarding the treatment options. She wishes to hold off on total knee replacement surgery for as long as possible. I agree with this plan. I will see whether or not the patient's insurance company will cover a viscosupplementation injection for both of her knees. I will see her back once the injections are available. Feel free to call me at any time should questions regarding her orthopedic management arise. I spent 20 minutes in reviewing the patient's records and imaging studies, seeing the patient and documenting in the medical record. Coding Level of Care Code New Pt Level 3 (17421) Complex EM visit Add On G2211 Diagnoses Osteoarthritis of left knee M17.12 Osteoarthritis of right knee M17.11
--- OUTSIDE RECORDS SUMMARY | 2024-05-07 11:22 | XMS_ITS | Clinical Summary ---
Author Organization [address] [place] [address] Address [address] [place] [address] Phone Care Team Providers Care Aircraft Communicator Name Role Phone Gina Fonseca MD Primary [...] PM EST Office Visit Orthopedic Surgery - [address] [address] Vicente Pearce, DPM Hallux rigidus [...] right leg BREAST REDUCTION 2009 Bilateral PROCEDURE: [place] BREAST REDUCTION Medical History Medical History Date Comments Unspecified essential hypertension DX:Unspecified essential hypertension DM type 2 (diabetes mellitus , type 2) ([facility]) 12/24/2012 DX:DM type 2 (diabetes melli tus, type 2) ([facility]) Family History Medical History Relation Name Comments Cataracts Father Glaucoma Father Breast cancer Mother 75 Breast cancer Sister 1 70 Blindness Neg Hx Macular degeneration Neg Hx Strabismus Neg Hx Relation Name Status Comments Daughter Alive HTN Father [place] and DM Mother 75 Breast cancer Sister [...] AM EDT Office Visit Orthopedic Surgery - [place] [address] [address] Vicente Pearce, DPM [address] [address] Health Maintenance Due Date Last Done Comments [...] Result * (ABNORMAL) Hemoglobin A1c (04/04/2015) Pathologist [facility] Hemoglobin A1C 6.5(A) 4.0 - 6.0 % Blood Venous blood specimen / Unknown Result [facility] Provider LAB BLOOD ORDERABLES Lina l Result * (ABNORMAL) Lipid panel (04/04/2015) Pathologist [facility] LDL/HDL Ratio 4 0 - 4 Triglycerides 223(A) 0 - 150 mg/dL Cholesterol 194 0 - 200 mg/dL HDL 1(A) >=40 mg/dL LDL Cholesterol 96 0 - 100 mg/dL Blood Venous blood specimen / Unknown Result [facility] Provider LAB BLOOD ORDERABLES Lina l Result * Urine Albumin Creatinine Ratio (08/27/2014) Pathologist [facility] Urine Albumin Creatinine Ratio abstracted Result [facility] Provider HEALTH MAINTENANCE Final Result * Hepatitis C Screening (09/15/2012) Pathologist [facility] Hepatitis C Screening abstracted Result [facility] Provider HEALTH MAINTENANCE Final Result from Last 3 Months or Most Recently Relevant to Health Maintenance Insurance [facility] MEDIC[facility] Member Subscriber Plan / Payer (Ef fective 2023-Present) Name:Azeb Kennedy Relation to Subscriber:Self Name:Azeb Kennedy Payer ID:[id number] Group ID:[id number] Type:Not on file Address: [place] [address] [address] [id number] Care Teams Aircraft Communicator Relationship Specialty Start Date End Date Gina Fonseca MD [address] [facility], [place] PCP - General Internal Medicine 10/16/21
--- OUTSIDE RECORDS SUMMARY | 2024-05-07 11:22 | XMS_ITS ---
Author Name Mckinley KINSEY MS. Virgie Olson Address [address] [place] [address] Phone [phone] [facility] Care Team Providers Care Sales Correspondence Clerk Name Role Phone Ruth Sen Unavailable [phone] Reason for Referral Not Available Allergies, adverse [...] 2021-12-05 No Data Available OneTouch Delica Plus [id number] Miscellaneous TEST BLOOD SUGAR THREE TIMES DAILY [...] (do not use for phone, instead use 35110-57) [facility]2022 Type 2 diabetes mellitus wit h other specified complicationHyperlipidemia, unspecifiedEssential (primary) hypertensionMajor depressive disorder, recurrent, in remission, unspecifiedPersonal history of (healed) traumatic fracture New patient,40-59min; chronic exacerbation, 2 stable chronic or 1 acute illness add add modifier 95 for video (do not use for phone, instead use 66993-36) [facility] [place]2022 New patient,40-59min; chronic exacerbation, 2 stable chronic or 1 acute illness add add modifier 95 for video (do not use for phone, instead use 88018-26) [facility] [place] 06/04/2022 New patient,40-59min; chronic exacerbation, 2 stable chronic or 1 acute illness add add modifier 95 for video (do not use for phone, instead use 04841-07) [facility] [place] 06/04/2022 New patient,40-59min; chronic exacerbation, 2 stable chronic or 1 acute illness add add modifier 95 for video (do not use for phone, instead use 81777-10) [facility] [place] 06/04/2022 New patient,40-59min; chronic exacerbation, 2 stable chronic or 1 acute illness add add modifier 95 for video (do not use for phone, instead use 28821-76) [facility] [place] 06/04/2022 New patient,40-59min; chronic exacerbation, 2 stable chronic or 1 acute illness add add modifier 95 for video (do not use for phone, instead use 03642-56) [facility] [place] 06/04/2022 New patient,40-59min; chronic exacerbation, 2 stable chronic or 1 acute illness add add modifier 95 for video (do not use for phone, instead use 42836-27) [facility] [place] 06/04/2022 Vital Signs Date of Collection Vitals 2022-06-04 10:06:44 Height - 157.48 cmWe ight - 68.04 kgBody Mass Index (BMI) - 27.44 kg/m2 Social History Social History Social History Observation Description Effec tive Time Current Smoking Status Never smoker 2024-04-25 3 Sex Female History of Procedures Procedures Service Procedure code Service date Servicing provider Phone# New patient,40-59min; chronic exacerbation, 2 stable chronic or 1 acute illness add add modifier 95 for video (do not use for phone, instead use 63657-86) [id number] 2022-06-04 No Data Available No Data Availa [...] ilable Functional Status Functional Category Effective Dates PROOF COIN COLLECTOR assists with cooking, cl eaning and laundry. [...]
--- OUTSIDE RECORDS SUMMARY | 2024-05-07 11:22 | XMS_ITS | Encounter Summary ---
Author Organization [employer] Address 75 [facility] 7t [place] [address] Care Team Providers Care Chiropractic Teacher Name Role Phone Name, Hill HERNANDEZ Primary Care Provider [phone] Encounter Details Date Type Department Care Team (Late st Contact Info) Description 01/21/2023 Telephone [facility]ICINE [address] [place], [place] [phone] Name, MD Hill [address] [place] [address] Social History Tobacco Use Types Packs/Day Years [...] PM EDT Office Visit [facility] [address] [place] [address] Name, MD Hill [address] [place] [address] documented as of this encounter Visit Diagnoses Not on filedocumented in this encounter Additional Health Concerns Assessment Noted Time PHQ-9 Depression Total Score: 19 023 1:35 PM EDT documented as of this encounter Care Teams Chiropractic Teacher Relationship Specialty Start Date End Date NameHill MD [address] [place] [address] PCP - General Family Medicine 03/15/15 documented as of this encounter
--- OUTSIDE RECORDS SUMMARY | 2024-05-07 11:22 | XMS_ITS | Encounter Summary ---
Author Organization [employer] Address 75 [facility] 7t [place] [address] Care Team Providers Care Enrollment Management Vice President Name Role Phone Name, Hill HERNANDEZ Primary Care Provider [phone] Encounter Details Date Type Department Care Team (Late st Contact Info) Description 02/01/[address] [facility] MEDICINE [address] [place], [place] [phone] Name, MD Hill [address] [place] [address] Social History Tobacco Use Types Packs/Day Years [...] 06/16/2024 1:45 PM EDT Office Visit [facility] MEDICINE [address] [place] [address] Name, MD Hill [address] [place] [address] documented as of this encounter Visit Diagnoses Not on filedocumented in this encounter Additional Health Concerns Assessment Noted Time PHQ-9 Depression Total Score: 19 023 1:35 PM EDT documented as of this encounter Care Teams Enrollment Management Vice President Relationship Specialty Start Date End Date NameHill MD [address] [place] [address] PCP - General Family Medicine 03/15/15 documented as of this encounter
--- OUTSIDE RECORDS SUMMARY | 2024-05-07 11:22 | XMS_ITS | Encounter Summary ---
Author Organization [employer] Address 75 [facility] 7t [place] [address] Care Team Providers Care Appliance Service Representative Name Role Phone Name, Hill HERNANDEZ Primary Care Provider [phone] Reason for Visit * Reason Onset Date Comments triage 07/19/2022 Encounter Details Date Type Department Care Team ([facility] st Contact Info) Description 07/19/2022 Telephone [facility] MEDICINE [address] [place], [place] [phone] Name, MD Hill [address] [place] [address] triage Social History Tobacco Use Types Packs/Day [...] worse The caller accepted this outcome speaks urdu documented in this encounter Plan of Treatment Upcoming Encounters Date Type Department Care Team (Late st Contact Info) Description 06/16/2024 1:45 PM EDT Office Visit [facility]INE [address] [place] [address] Name, MD Hill [address] [place] [address] documented as of this encounter Visit Diagnoses Not on filedocumented in this encounter Additional Health Concerns Assessment Noted Time PHQ-9 Depression Total Score: 19 023 1:35 PM EDT documented as of this encounter Care Teams Appliance Service Representative Relationship Specialty Start Date End Date Name, MD Hill [address] [place] [address] PCP - General Family Medicine 03/15/15 documented as of this encounter
--- OUTSIDE RECORDS SUMMARY | 2024-05-07 11:22 | XMS_ITS | Encounter Summary ---
Author Organization [employer] Address 75 [facility] 7t [place] [address] Care Team Providers Care Medical Staff Credentialing Coordinator Name Role Phone Name, Hill HERNANDEZ Primary Care Provider [phone] Encounter Details Date Type Department Care Team (Latest Contact Info) Description 04/21/2019 Abstract [facility] CONVERSIONS Dental, Provider, DDS Social History [...] Description 06/16/2024 1:45 PM EDT Office Visit [facility] MEDICINE [address] [place] [address] Name, MD Hill [address] [place] [address] documented as of this encounter Visit Diagnoses Not on filedocumented in this encounter Care Teams Medical Staff Credentialing Coordinator Relationship Specialty Start Date End Date Name, MD Hill [address] [place] [address] PCP - General Family Medicine 03/15/15 documented as of this encounter
--- OUTSIDE RECORDS SUMMARY | 2024-05-07 11:22 | XMS_ITS | Encounter Summary ---
Author Organization [employer] Address [address] [facility] 7t [place] [address] Care Team Providers Care Road Mechanic Name Role Phone Name, Hill HERNANDEZ Primary Care Provider [phone] Encounter Details Date Type Department Care Team (Latest Contact Info) Description 07/26/2021 Abstract [facility] Dental, Provider, DDS Social History [...] Description 06/16/2024 1:45 PM EDT Office Visit [facility] [address] [place] [address] Name, MD Hill [address] [place] [address] documented as of this encounter Visit Diagnoses Not on filedocumented in this encounter Care Teams Road Mechanic Relationship Specialty Start Date End Date Name, MD Hill [address] [place] [address] PCP - General Family Medicine 03/15/15 documented as of this encounter
--- OUTSIDE RECORDS SUMMARY | 2024-05-07 11:22 | XMS_ITS | Encounter Summary ---
Author Organization [employer] Address 75 [facility] 7t [place] [address] Care Team Providers Care Power Electronics Research Engineer Name Role Phone Name, Hill HERNANDEZ Primary Care Provider [phone] Encounter Details Date Type Department Care Team (Latest Contact Info) Description 01/06/[address] [facility] CONVERSIONS Dental, Provider, DDS Social History [...] PM EDT Office Visit [facility] MEDICINE [address] [place] [address] Name, MD Hill [address] [place] [address] documented as of this encounter Visit Diagnoses Not on filedocumented in this encounter Care Teams Power Electronics Research Engineer Relationship Specialty Start Date End Date Name, MD Hill [address] [place] [address] PCP - General Family Medicine 03/15/15 documented as of this encounter
--- OUTSIDE RECORDS SUMMARY | 2024-05-07 11:22 | XMS_ITS | Clinical Summary ---
Author Organization [employer] Address [address] [facility] 7[address] [place] [address] Care Team Providers Care Healthcare Business Analyst Name Role Phone Name, Hill HERNANDEZ Primary Care Provider [phone] Allergies No known active allergies Medications * This document contains information received from the source organization and may not represent a complete record from that organization. Lancets (OneTouch Delica Plus [id number]) misc TEST BLOOD SUGAR THREE TIMES DAILY [...] 03/07/19 24 Active Lancets (OneTouch Delica Plus [id number]) miscIndications: Diabetes mellitus type 2 in obese TEST BLOOD SUGAR THREE TIMES DAILY 100 each 04/10/19 24 Active OneTouch Ultra Test test stripIndications :Type 2 diabetes mellitus with other specified complication, without long-term current use of insulin ([facility]) TEST BLOOD SUGAR THREE TIMES DAILY 150 strip 07/23/19 24 Active chlorhexidine (Peridex) 0.12 % [...] day. 30 tablet 04/20/19 25 026 Active metFORMIN (Glucophage) 850 MG tabletIndication s:Type 2 diabetes mellitus with other specified complication, without long-term current use of insulin (CMS/HCC),Essent ial hypertension TAKE 1 TABLET BY MOUTH TWICE DAILY WITH BREAKFAST AND WITH DINNER 60 tablet 11 05/07/19 25 Active metFORMIN (Glucophage) 850 MG tabletIndication s:Type 2 diabetes mellitus with other specified complication, without long-term current use of insulin ([facility]),Essent ial hypertension TAKE 1 TABLET BY MOUTH TWICE DAILY, WITH BREAKFAST AND WITH DINNER. 60 tablet 11 04/22/19 24 025 Discontinued cefadroxil (Duricef) 500 MG capsule Take 1 capsule (500 mg) by mouth 2 times daily for 7 days. 14 capsule 04/20/19 25 025 Active Problems Problem Noted Date Diagnosed Date [...] family illness. Azeb's boyfriend unexpectedly in the [place]. They have been together for about four years. Azeb lives alone and reports having sense of isolation and feeling lonely. The passing of her boyfriend has been identified as main stressor. PLAN: (check all that apply) Further services needed, but declined Behavioral Health Integration Plan Internal Follow up with [facility] Patient Self Plan Patient to utilize skills provided in intervention , Patient to [facility] team as needed, Comply with medication , [...] family illness. Azeb's boyfriend unexpectedly in the [place]. They have been together for about four years. Azeb lives alone and reports having sense of isolation and feeling lonely. The passing of her boyfriend has been identified as main stressor. PLAN: (check all that apply) Further services needed, but declined Behavioral Health Integration Plan Internal Follow up with [facility] Patient Self Plan Patient to utilize skills provided in intervention , Patient to reach out to [facility] team as needed, Comply with medication , [...] Encounters Date Type Department Care Team Description 05/06/[address] [facility] [address] [place] [phone] Hill Dickson MD Type 2 diabetes mellitus with other specified complication, without long-term current use of insulin ([facility]); Essential hypertension 04/20/2024 9:00 AM EST Office Visit [facility] [address] [place] [phone] Tina Powell MD Right wrist tendinitis (Primary Dx); Right hand tendonitis; Cellulitis of right wrist; Acute pain of right shoulder due to trauma 03/24/[address] [facility] [address] [place] [phone] Hill Dickson MD 03/24/[address] [facility] [address] [place] [phone] Hill Dickson MD 03/18/[address] [address] Hill Dickson MD FYI 03/18/[address] [phone] Hill Dickson MD 03/17/2024 2:00 PM EST Office Visit [facility] [address] [place] [phone] Hill Dickson MD Type 2 diabetes mellitus with other specified complication, without long-term current use of insulin ([facility]) (Primary Dx); Primary osteoarthritis of both knees; Chronic right-sided low back pain with right-sided sciatica; Chronic insomnia 03/09/[address] [facility] [address] [place] [address] [phone] Livia Tracy MA chart prep 02/24/2024 Refill [facility] [address] [place], [place] [phone] Hill Dickson MD 02/17/[address] [facility] [address] [place] [phone] Hill Dickson MD Muscle spasm (Primary Dx) 02/11/2024 Orders Only [facility] External Provider, [facility] from Last 3 Months Immunizations Name Administration [...] the past 12 months, has t he [employer], gas, oil or water company threatened to [...] 06/16/2024 1:45 PM EDT Office Visit [facility] [address] [place] [phone] Name, MD Hill [address] [place] [address] Health Maintenance Due Date Last Done Comments [...] Additional history exists Lipid Panel 09/08/2024 09/09/2023, 0505/2022, 07/10/2021, Additional history exists Diabetes: Hemoglobin A1C [...] Procedure Name Priority Date/Time Associated Diagnosis Comments XR HAND 3+ VIEWS RIGHT Routine 04/20/2024 9:42 AM EST Right hand tendonitis XR SHOULDER 2+ VIEWS RIGHT Routine 04/20/2024 9:41 AM EST Acute pain of right shoulder due to trauma XR WRIST 3+ VIEWS RIGHT Routine 04/20/2024 9:41 AM EST Right hand tendonitis Right wrist tendinitis POCT GLUCOSE Routine 03/17/2024 2:17 PM EST Type 2 diabetes mellitus with other specified complication, without long-term current use of insulin ([facility]) POCT GLYCATED HEMOGLOBIN, TOTAL Routine 03/17/2024 2:16 PM EST Type 2 diabetes mellitus with other specified complication, without long-term current use of insulin (CMS/[facility]) XR KNEE 3 VIEWS RIGHT Routine 02/11/2024 11:46 AM EST XR KNEE 3 VIEWS LEFT Routine 02/11/2024 11:46 AM EST ALBUMIN, RANDOM URINE W/CREATININE Routine 09/09/2023 8:50 AM EDT Type 2 diabetes mellitus with other specified complication, without long-term current use of insulin (CMS/[facility]) LIPID PANEL, STANDARD Routine 09/09/2023 8:42 AM EDT Type 2 diabetes mellitus with other specified complication, without long-term current use of insulin (CMS/[facility]) PROPHYLAXIS - ADULT Routine 05/27/2023 1 :00 PM EDT PERIODIC ORAL EVALUATION - ESTABLISHED PATIENT Routine 05/27/2023 1:00 PM EDT HM DIABETES EYE EXAM Routine 03/22/2023 BITEWINGS - 2 RADIOGRAPHIC IMAGES Routine 10/04/2022 3:00 PM EDT Excessive attrition of teeth, limited to enamel Generalized gingival recession Dental calculus Missing teeth, acquired INTRAORAL - COMPLETE SERIES OF RADIOGRAPHIC IMAGES Routine 07/26/2021 12:00 AM EDT HM COLONOSCOPY Routine 03/03/2014 2:40 PM EST HM HEPATITIS C ANTIBODY Routine 09/15/2012 from Last 3 Months or Most Recently Relevant to Health Maintenance Results * XR Hand 3+ Views Right (04/20/2024 9:42 AM EST) Anatomical Region Laterality Modality Upper Extremities, Hand Right Radiogra phic Imaging 04/20/2024 9:42 AM EST Narrative 04/20/2024 10:37 AM EST ?[facility] ?[address] ?[place] [address] ?XRay Report ? Signed ? Patient: Azeb Kennedy ?MR#: [id number] ?? 4 ? : 1945 ?Acct:[id number] ? Age/Sex: 79 / F ?ADM Date: 04/20/24 ? Loc: HO.HHCX ? Attending Dr: Tina Powell MD ? Ordering Physician: Tina Powell MD ?? Date of Service: 04/20/24 ?? Procedure(s): XR hand RT min 3V ?? Accession Number(s): [id number] ? cc: Tina Powell MD ? EXAMINATION: ??XR HAND 3 OR MORE VIEWS RIGHT ? HISTORY: INJURY ? COMPARISON: There are no prior studies available for comparison. ? FINDINGS: ? Three views of the right hand are submitted. ??Osseous mineralization is ?? normal. ??There is no fracture or dislocation. ??There is moderate joint ?? space narrowing involving the DIP joints of the 2nd and 3rd fingers and ?? the PIP joints of the 3rd, 4th, and 5th fingers. There are small ?? erosions noted as well as small erosions involving the metacarpal heads ?? of the thumb and index fingers. ??The soft tissues are unremarkable. ? XR/XR hand RT min 3V ?? IMPRESSION: ? Findings suggestive of erosive osteoarthritis versus seronegative ?? arthritis. No evidence of fracture of the right hand. ? Electronically signed by: ??James Gonzalez MD ??04/20/2024 10:34 AM EST ?? RP ? Dictated By: ?James Gonzalez MD ? Signed By: ?<Electronically signed by James Gonzalez MD in OV> ?04/20/24 1034 ? DD/ 0942 ? TD/TT: 04/20/24 1000 ? Graduating Machine Operator: ? Procedure Note Trinity, Image - 04/20/2024 [facility] [address] [place] [address] XRay Report Signed Patient: Abraham Kennedy#: [id number] 4 : 8Acct:[id number] Age/Sex: 79 / FADM Date: 04/20/24 Loc: .HHCX Attending Dr: Tina Powell MD Ordering Physician: Tina Powell MD Date of Service: 04/20/24 Procedure(s): XR hand RT min 3V Accession Number(s): [id number] cc: Tina Powell MD EXAMINATION: XR HAND 3 OR MORE VIEWS RIGHT HISTORY: INJURY COMPARISON: There are no prior studies available for comparison. FINDINGS: Three views of the right hand are submitted. Osseous mineralization is normal. There is no fracture or dislocation. There is moderate joint space narrowing involving the DIP joints of the 2nd and 3rd fingers and the PIP joints of the 3rd, 4th, and 5th fingers. There are small erosions noted as well as small erosions involving the metacarpal heads of the thumb and index fingers. The soft tissues are unremarkable. XR/XR hand RT min 3V IMPRESSION: Findings suggestive of erosive osteoarthritis versus seronegative arthritis. No evidence of fracture of the right hand. Electronically signed by: James Gonzalez MD 04/20/2024 10:34 AM EST Dictated By: James Gonzalez MD Signed By: <Electronically signed by James Gonzalez MD in OV> 04/20/24 1034 DD/ 0942 TD/TT: 04/20/24 1000 Graduating Machine Operator: Tina Powell MD IMG XR PROCEDURES Final Result * XR Wrist 3+ Views Right (04/20/2024 9:41 AM EST) Anatomical Region Laterality Modality Upper Extremities, Wrist Right Radiogr aphic Imaging 04/20/2024 9:41 AM EST Narrative 04/20/2024 10:53 AM EST ?[facility] ?[address] ?[place] [address] ?XRay Report ? Signed ? Patient: Kennedy,Azeb ?MR#: [id number] ?? 4 ? : 1945 ?Acct:[id number] ? Age/Sex: 79 / F ?ADM Date: 04/20/24 ? Loc: HO.HHCX ? Attending Dr: Tina Powell MD ? Ordering Physician: Tina Powell MD ?? Date of Service: 04/20/24 ?? Procedure(s): XR wrist RT min 3V ?? Accession Number(s): [id number] ? cc: Tina Powell MD ? EXAMINATION: ?? XR WRIST, RIGHT ? CLINICAL INFORMATION: ?? fall/ right wrist + hand trauma ? COMPARISON: ?? 05/04/2020. ? TECHNIQUE: ?? PA, lateral, oblique, and scaphoid views of the right wrist. ? FINDINGS: ?? No fracture, dislocation, or suspicious bone lesion. Normal bone ?? mineralization. ?? Normal alignment. ?? Mild degenerative arthritis in the first CMC joint, and first MCP joint. ? There is chondrocalcinosis throughout the wrist. ? There are vascular calcifications in the soft tissues. ? XR/XR wrist RT min 3V ?? IMPRESSION: ?? 1. No acute fracture or dislocation. ?? 2. Chondrocalcinosis throughout the wrist suggesting CPPD. ? Electronically signed by: ??Indra Carter MD ??04/20/2024 10:49 AM EST RP ? Dictated By: ?Indra Carter MD ? Signed By: ?<Electronically signed by Indra Carter MD in OV> ?04/20/24 1049 ? DD/ 0941 ? TD/TT: 04/20/24 1000 ? Graduating Machine Operator: ? Procedure Note [facility], Image - 04/20/[address] [address] XRay Report Signed Patient: Abraham Kennedy#: [id number] 4 : 8Acct:[id number] Age/Sex: 79 / FADM Date: 04/20/24 Loc: HO.HHCX Attending Dr: Tina Powell MD Ordering Physician: Tina Powell MD Date of Service: 04/20/24 Procedure(s): XR wrist RT min 3V Accession Number(s): [id number] cc: Tina Powell MD EXAMINATION: XR WRIST, RIGHT CLINICAL INFORMATION: fall/ right wrist + hand trauma COMPARISON: 05/04/2020. TECHNIQUE: PA, lateral, oblique, and scaphoid views of the right wrist. FINDINGS: No fracture, dislocation, or suspicious bone lesion. Normal bone mineralization. Normal alignment. Mild degenerative arthritis in the first CMC joint, and first MCP joint. There is chondrocalcinosis throughout the wrist. There are vascular calcifications in the soft tissues. XR/XR wrist RT min 3V IMPRESSION: 1. No acute fracture or dislocation. 2. Chondrocalcinosis throughout the wrist suggesting CPPD. Electronically signed by: Indra Carter MD 04/20/2024 10:49 AM EST Dictated By: Indra Carter MD Signed By: <Electronically signed by Indra Carter MD in OV> 04/20/24 1049 DD/ 0941 TD/TT: 04/20/24 1000 Graduating Machine Operator: Tina Powell MD IMG XR PROCEDURES Final Result * XR Shoulder 2+ Views Right (04/20/2024 9:41 AM EST) Anatomical Region Laterality Modality Upper Extremities, Shoulder Right Radi ographic Imaging 04/20/2024 9:41 AM EST Narrative 04/20/2024 10:38 AM EST ?[facility] ?[address] ?[place] [address] ?XRay Report ? Signed ? Patient: Kennedy,Azeb ?MR#: [id number] ?? 4 ? : 1945 ?Acct:[id number] ? Age/Sex: 79 / F ?ADM Date: 02/24/25 ? Loc: HO.HHCX ? Attending Dr: Tina Powell MD ? Ordering Physician: Tina Powell MD ?? Date of Service: 04/20/24 ?? Procedure(s): XR shoulder RT min 2V ?? Accession Number(s): [id number] ? cc: Tina Powell MD ? EXAMINATION: ?? XR SHOULDER, RIGHT ? CLINICAL INFORMATION: ?? sp fall right shoulder pain ? COMPARISON: ?? None available. ? TECHNIQUE: ?? AP external rotation, Grashey, scapular Y, and axillary views of the ?? right shoulder. ? FINDINGS: ?? There is subchondral cyst formation and spurs the articular surface of ?? the acromioclavicular joint and at the greater tuberosity of the ?? humerus. No acute cortical disruption or malalignment. ?? No lytic or blastic lesions. ? XR/XR shoulder RT min 2V ?? IMPRESSION: ?? Degenerative changes without acute fracture or dislocation. ? Electronically signed by: ??Phil Melissa MD ??04/20/2024 10:35 AM ?? EST RP ? Dictated By: ?Phil Lawler MD ? Signed By: ?<Electronically signed by Phil Cat MD in OV> ? 04/20/24 1035 ? DD/ 0941 ? TD/TT: 04/20/24 1000 ? Graduating Machine Operator: ? Procedure Note Zeeshan Petersen - 04/20/[address] [address] XRay Report Signed Patient: Abraham Kennedy#: [id number] 4 : 8Acct:[id number] Age/Sex: 79 / FADM Date: 04/20/24 Loc: HO.HHCX Attending Dr: Tina Powell MD Ordering Physician: Tina Powell MD Date of Service: 04/20/24 Procedure(s): XR shoulder RT min 2V Accession Number(s): [id number] cc: Tina Powell MD EXAMINATION: XR SHOULDER, RIGHT CLINICAL INFORMATION: sp fall right shoulder pain COMPARISON: None available. TECHNIQUE: AP external rotation, Grashey, scapular Y, and axillary views of the right shoulder. FINDINGS: There is subchondral cyst formation and spurs the articular surface of the acromioclavicular joint and at the greater tuberosity of the humerus. No acute cortical disruption or malalignment. No lytic or blastic lesions. XR/XR shoulder RT min 2V IMPRESSION: Degenerative changes without acute fracture or dislocation. Electronically signed by: Phil Melissa MD 04/20/2024 10:35 AM EST RP Dictated By: Phil Lawler MD Signed By: <Electronically signed by Phil Cat MDin OV> 04/20/24 1035 DD/ 0941 TD/TT: 04/20/24 1000 Graduating Machine Operator: Tina Powell MD IMG XR PROCEDURES Final Result * POCT Glucose (03/17/2024 2:17 PM EST) Glucose Blood, POC 146 60 - 200 mg/dL QC Media Lot # [id number] Lot# Expiration Date Blood Capillary blood specimen / Unknown 03/17/2024 2:17 PM EST Result [facility] Hill Dickson MD POINT OF CARE TEST ENTER/EDIT OR DERABLES Final Result * (ABNORMAL) POCT HGB A1C (03/17/2024 2:16 PM EST) Hemoglobin A1C 6.3(A) 4.0 - 6.0 % QC Media Lot # [id number] Lot# Expiration Date [id number] Blood 03/17/2024 2:16 PM EST Result [facility] us Hill Dickson MD POINT OF CARE TEST ENTER/EDIT OR DERABLES Final Result * XR Knee 3 Views Right (02/11/2024 11:46 AM EST) Anatomical Region Laterality Modality Lower Extremities, Knee Right Radiogra phic Imaging 02/11/2024 11:4 6 AM EST Narrative 2024 7:14 AM EST ? [facility] ?[address] ?[place] [address] ?XRay Report ? Signed ? Patient: Kennedy,Azeb ?MR#: [id number] ?? 4 ? : 1945 ?Acct:[id number] ? Age/Sex: 78 / F ?ADM Date: 02/11/24 ? Loc: HO.XRAY ? Attending Dr: Edward Welsh MD ? Ordering Physician: Edward Welsh MD ?? Date of Service: 02/11/24 ?? Procedure(s): XR knee RT 3V ?? Accession Number(s): [id number] ? cc: Edward Welsh MD; Name,Hill HERNANDEZ [...] DD/ 1146 ? TD/TT: 02/11/24 1205 ? Graduating Machine Operator: MSM ? Procedure Note [facility], Image - [address] [address] XRay Report Signed Patient: Abraham Kennedy#: [id number] 4 : 8Acct:[id number] Age/Sex: 78 / FADM Date: 02/11/24 Loc: SHAUNSTEFANIA Attending Dr: Edward Welsh MD Ordering Physician: Edward Welsh MD Date of Service: 02/11/24 Procedure(s): XR knee RT 3V Accession Number(s): [id number] cc: Edward Welsh MD; Name,Hill HERNANDEZ EXAMINATION: [...] 03/12/24 0712 DD/ 1146 TD/TT: 02/11/24 1205 Graduating Machine Operator: MIRIAM [facility] External Provider IMG XR PROCEDURES Edited Result - Final * XR Knee 3 Views Left (02/11/2024 11:46 AM EST) Anatomical Region Laterality Modality Lower Extremities, Knee Left Radiogra phic Imaging 02/11/2024 11:4 6 AM EST Narrative 2024 7:14 AM EST ? [facility] ?[address] ?[place] [address] ?XRay Report ? Signed ? Patient: Kennedy,Azeb ?MR#: [id number] ?? 4 ? : 1945 ?Acct:[id number] ? Age/Sex: 78 / F ?ADM Date: 02/11/24 ? Loc: HO.XRAY ? Attending Dr: Edward Welsh MD ? Ordering Physician: Edward Welsh MD ?? Date of Service: 02/11/24 ?? Procedure(s): XR knee LT 3V ?? Accession Number(s): [id number] ? cc: Edward Welsh MD; Name,Hill HERNANDEZ [...] 07:12 AM EST RP ? Dictated By: ?Armando Garner MD ? Signed By: ?<Electronically signed by Armando Garner MD in OV> ?03/12/24 0712 ? DD/ 1146 ? TD/TT: 02/11/24 1205 ? Graduating Machine Operator: MSM ? Procedure Note Donrachael, Image - [address] [address] XRay Report Signed Patient: Abraham Kennedy#: [id number] 4 : 8Acct:[id number] Age/Sex: 78 / FADM Date: 02/11/24 Loc: FLAVIO Attending Dr: Edward Welsh MD Ordering Physician: Edward Welsh MD Date of Service: 02/11/24 Procedure(s): XR knee LT 3V Accession Number(s): [id number] cc: Edward Welsh MD; Name,Hill HERNANDEZ EXAMINATION: [...] 03/12/24 0712 DD/ 1146 TD/TT: 02/11/24 1205 Graduating Machine Operator: MIRIAM [facility] External Provider IMG XR PROCEDURES Edited Result - Final * Albumin, Random Urine W/Creatinine (09/09/2023 8:50 AM EDT) Creatinine, Urine 75.51 mg/dL [facility] Microalbumin Urine 7.0 mg/L [facility] Microalbum Creatinine Ratio Ur 9.2 <30 ug/mg cr [facility] Comment:Albumin/Creatinine R atio Reference Ranges: Normal: < 30 ug/mg creatinine Microalbuminuria: 30 - 300 ug/mg creatinineClinical Albuminuria: > 300 ug/mg creatinine Urine (Urine, Random) 09/09/2023 8:50 AM EDT 09/09/2023 11:13 AM EDT us Hill Dickson MD LAB URINE ORDERABLES Final Resul t [facility] [address] [place] [address] [phone] * (ABNORMAL) Lipid Panel, Standard (09/09/2023 8:42 AM EDT) Triglycerides 119 <150 mg/dL [facility] Comment:Desirable Triglyceri de: less than 150 mg/dLBorderline High Triglyceride 150-199 mg/dLHigh Triglyceride: 200-499 mg/dLVery High Triglyceride: greater than or equal to 5OO mg/dL Cholesterol 190 <200 mg/dL [facility] Comment:Desirable Cholestero l: less than 200 mg/dLBorderline High Cholesterol: 200-239 mg/dLHigh Cholesterol: greater than 239 mg/dL LDL Cholesterol Calculated 102(H) <100 mg/dL [facility] Comment:Desirable LDL: less than 100 mg/dLNear Optimal/Above Optimal LDL: 110- 129 mg/dLBorderline High LDL: 130-159 mg/dLHigh LDL: 160-189 mg/dLVery High LDL: greater than or equal to 190 mg/dL HDL Cholesterol 65 >40 mg/dL [facility] Comment:Desirable HDL: great er than 40 mg/dL Note: This HDL assay may give artificially low results in patients with liver disease. Blood Venous blood specimen / Unknown 09/09/2023 8:42 AM EDT 09/09/2023 11:04 AM EDT us Hill Dickson MD LAB BLOOD ORDERABLES Final Resul t Performing Organization Address [facility] Co de Phone Number [facility] [address] [place] [address] [phone] * Diabetes Eye Exam (03/22/2023) Eye Exam Normal Normal, BIRADS 0 , BIRADS 1 , BIRADS 2, BIRADS 3 , BIRADS 4+ us Hill Dickson MD HEALTH MAINTENANCE Final Result * Colonoscopy (03/03/2014 2:40 PM EST) Colonoscopy Normal Normal Narrative Hafsa Lares - 03/03/2014 2:40 PM EST Recommended 10 year follow up us Historical Provider HEALTH MAINTENANCE Final Result * HM Hepatitis C Antibody (09/15/2012) Hepatitis C Antibody Nonreactive Blood Hill Name HEALTH MAINTENANCE Final Result from Last 3 Months or Most Recently Relevant to Health Maintenance Insurance [facility] STAND[facility] - [facility] [address] [place] [phone] [place] [phone] [place] [phone] Care Teams Healthcare Business Analyst Relationship Specialty Start Date End Date Name, MD Hill [address] [place] [phone] PCP - General Family Medicine 03/15/15
--- OUTSIDE RECORDS SUMMARY | 2024-05-07 11:22 | XMS_ITS | Encounter Summary ---
Author Organization [employer] Address [address] [facility] [address] [place] [address] Care Team Providers Care Dyer Helper Name Role Phone Name, Hill HERNANDEZ Primary Care Provider [phone] Encounter Details Date Type Department Care Team (Late st Contact Info) Description 07/30/[address] [facility] [address] [place] [address] [phone] Name, MD Hill [address] [place] [address] [phone] Social History Tobacco Use Types Packs/Day Years [...] PM EDT Office Visit [facility] [address] [place] [address] [phone] Name, MD Hill [address] [place] [address] [phone] documented as of this encounter Procedures Procedure [...] documented as of this encounter Care Teams Dyer Helper Relationship Specialty Start Date End Date Name, MD Hill [address] [place] [address] PCP - General Family Medicine 03/15/15 documented as of this encounter
--- OUTSIDE RECORDS SUMMARY | 2024-05-07 11:22 | XMS_ITS | Encounter Summary ---
Author Organization [employer] Address [address] [facility] 7t [place] [address] Care Team Providers Care Annealing Furnace Operator Name Role Phone Name, Hill HERNANDEZ Primary Care Provider [phone] Reason for Visit * Reason Onset Date Comments Call Back Request 02/01/2023 Encounter Details Date Type Department Care Team ([facility] st Contact Info) Description 02/01/2023 Telephone [facility] MEDICINE [address] [place], [place] [phone] Name, MD Hill [address] [place] [address] Call Back Request Social History Tobacco Use [...] 2:16 PM EST T/C to pt. Through [employer] Yellow Pages id - [id number] for below message to inform submit paperwork regarding ACCOUNT MANAGER FOREST SERVICE hours at medical records/ forms dept. Pt. Verbally agreed and understood. * Telephone Encounter - Aylin Duncan - 02/01/2023 3:37 PM EST Tc from pt requesting a call back in regards paperwork for [employer] MA[employer]GER [employer] hours. documented in this encounter Plan of Treatment Upcoming Encounters Date Type Department Care Team (Late st Contact Info) Description 06/16/2024 1:45 PM EDT Office Visit [facility] MEDICINE [address] [place] [address] Name, MD Hill [address] [place] [address] documented as of this encounter Visit Diagnoses Not on filedocumented in this encounter Additional Health Concerns Assessment Noted Time PHQ-9 Depression Total Score: 19 023 1:35 PM EDT documented as of this encounter Care Teams Annealing Furnace Operator Relationship Specialty Start Date End Date NameHill MD [address] [place] [address] PCP - General Family Medicine 03/15/15 documented as of this encounter
--- OUTSIDE RECORDS SUMMARY | 2024-05-07 11:22 | XMS_ITS | Encounter Summary ---
Author Organization [employer] Address 75 [facility] 7t [place] [address] Care Team Providers Care Asbestos Cloth Inspector Name Role Phone Name, Hill HERNANDEZ Primary Care Provider [phone] Reason for Visit * Reason Comments Med Refill Encounter Details Date Type Department Care Team ([facility] st Contact Info) Description 05/06/2024 Refill [facility] MEDICINE [address] [place], [place] [phone] Name, MD Hill [address] [place] [address] Type 2 diabetes mellitus with other specified complication, without long-term current use of insulin ([facility]); Essential hypertension Social History Tobacco Use Types Packs/Day Years [...] Description 06/16/2024 1:45 PM EDT Office Visit [facility] MEDICINE [address] [place] [address] Name, MD Hill [address] [place] [address] documented as of this encounter Visit Diagnoses Diagnosis Type 2 diabetes mellitus with other specified complication, without long-term current use of insulin ([facility]) Essential hypertension Unspecified essential hypertension documented in this encounter Additional Health Concerns Assessment Noted Time PHQ-9 Depression Total Score: 4 03/17/19 25 2:14 PM EST documented as of this encounter Care Teams Asbestos Cloth Inspector Relationship Specialty Start Date End Date NameHill MD [address] [place] [address] PCP - General Family Medicine 03/15/15 documented as of this encounter
--- OUTSIDE RECORDS SUMMARY | 2024-05-07 11:22 | XMS_ITS | Encounter Summary ---
Author Organization [employer] Address 75 [facility] 7t [place] [address] Care Team Providers Care Mold Maker Apprentice Name Role Phone Name, Hill HERNANDEZ Primary Care Provider [phone] Reason for Visit * Reason Onset Date Comments requesting a call 09/04/2022 Encounter Details Date Type Department Care Team ([facility] st Contact Info) Description 09/04/2022 Telephone [facility] MEDICINE [address] [place] [address] [phone] Name, MD Hill [address] [place] [address] requesting a call Social History Tobacco Use [...] - 09/05/2022 2:46 PM EDT T/C to [phone] for below message through [employer] id - [id number] for below message, pt. States she is all set, she does not has any question right now. Pt. Advised to give call to [facility] if any questions or concerns. * Telephone Encounter - Hemalatha Rodriguez - 09/04/2022 2:39 PM EDT Tc from pt requesting a call. Pt did not go in to detail and is aware of upcoming appointment. Please contact pt at [phone] (Comoran speaker) documented in this encounter Plan of Treatment Upcoming Encounters Date Type Department Care Team (Late st Contact Info) Description 06/16/2024 1:45 PM EDT Office Visit [facility] MEDICINE [address] [place] [address] Name, MD Hill [address] [place] [address] documented as of this encounter Visit Diagnoses Not on filedocumented in this encounter Additional Health Concerns Assessment Noted Time PHQ-9 Depression Total Score: 19 023 1:35 PM EDT documented as of this encounter Care Teams Mold Maker Apprentice Relationship Specialty Start Date End Date Name, MD Hill [address] [place] [address] PCP - General Family Medicine 03/15/15 documented as of this encounter
--- OUTSIDE RECORDS SUMMARY | 2024-05-07 11:22 | XMS_ITS | Patient Health Record ---
Author Organization [facility] Address [address] [place] [address] Care Team Providers Care Insurance Claims Adjuster Name Role Phone Name Hill HERNANDEZ Primary Care Provider James Kaur [phone] Allergies No Known Allergies Reason For Referral No Information Medications Medication SIG (Take, Route, Frequency, Duration) Notes Start Date End Date Status Amitriptyline HCl 25 MG 1 tablet at bedt juan josé Orally Once a day Active Tylenol 8 Hour Arthritis Pain 650 MG 2 tablets as needed Orally every 8 hrs Active Omeprazole 20 MG TAKE 1 CAPSULE BY [facility] DAILY IN THE MORNING Oral for 30 Active Pravastatin Sodium 10 MG 1 tablet Orally Once a day Active Fish Oil Active Lisinopril 2.5 MG 1 tablet Orally Once a day Active Melatonin Active metFORMIN HCl 850 MG 1 tablet with a marly l Orally Once a day Active Immunizations Vaccine Route Administration Date Status Comme nts Influenza Unknown 06/04/2019 Refused Influenza Unknown 12/21/2020 Refused Problems Problem Type SNOMED Code ICD Code Onset Dates Problem Status W/U Status Risk Notes Problem 301956048 Colon cancer screening (Z12.11) Active confirmed Problem 586511756 Gastroesophageal reflux disease without esophagitis (K21.9) Active confirmed Problem 595004728 Gastroesophageal reflux disease, esophagitis presence not specified (K21.9) Active confirmed Problem 75442243 Constipation, unspecified constipation type (K59.00) Active confirmed Plan Of Treatment Future Test Test Name Order Date COLONOSCOPY 12/02/2013 Next Appt Details Provider Name:James Easton , 06/09/2024 10:10:00 AM, [address], [address], [place], [address], Insurance Providers Payer Name Payer Address Payer Phone Subscriber Number Group Number Insured Name Patient Relationship to Insured Coverage Start Date Coverage End Date [facility] [address] [address] [place] [address] [id number] RAFFAELE CHUNG Self - patient is the insured Medicare of [place] [employer] [address] [place] [address] [id number] RAFFAELE CHUNG Self - patient is the insured Medical (General) History Medical History History ICD Code Tubular adenomas removed in 2004. She had negative followup colonoscopies in 06/2008 and in 02/2014. Diverticulosis GERD--EGD in 2004-small HH--no sig. esop hagitis nor Mccall's Denies RI,CVA,Lung disease,renal disease NIDDM Surgical History Surgery Date(Month/Year) Cholecystectomy Tubal ligation Hysterectomy with ? removal of one ovary Breast reduction Left foot 08/2021
--- OUTSIDE RECORDS SUMMARY | 2024-05-07 11:22 | XMS_ITS | Encounter Summary ---
Author Organization [facility] Address [address] [place] [address] Care Team Providers Care Screw Machine Operator Swiss Type Name Role Phone Gina Fonseca MD Primary Care Provider [phone] Reason for Visit * Reason Comments Follow-up Diabetic foot care Encounter Details Date Type Department Care Team (Late st Contact Info) Description 04/09/2024 1:00 PM EST Office Visit [facility] [place] [address] [address] Vicente Pearce DPM [address] [address] Hallux rigidus of left foot (Primary Dx); [...] Dr. Alejandre Name MD encounter date 10/15/2023 health administration teacher ID number [id number] utilized at today's appointment ROS: GENERAL: Pt [...] time each day in the morning. lancets ([employer]Touch Delica Plus Lancet) 33 gauge TEST BLOOD [...] Topical antifungal medications discussed in detail recommend [id number] Patient can follow-up in 1 to 2 [...] AM EDT Office Visit Orthopedic Surgery - [place] [address] [address] Vicente Pearce DPM [address] [address] documented as of this encounter Visit Diagnoses Diagnosis Hallux rigidus of left foot- Primary Hallux rigidus of right foot Dermatophytosis of nail Pain in toe of left foot Pain in soft tissues of limb Pain in toe of right foot Pain in soft tissues of limb Difficulty walking Difficulty in walking documented in this encounter Care Teams Screw Machine Operator Swiss Type Relationship Specialty Start Date End Date Gina Fonseca MD [address] [place], [place] PCP - General Internal Medicine 10/16/21 documented as of this encounter
--- OUTSIDE RECORDS SUMMARY | 2024-05-07 11:22 | XMS_ITS | Encounter Summary ---
Author Organization [employer] Address 75 [facility] 7t [place] [address] Care Team Providers Care Embedder Name Role Phone Name, Hill HERNANDEZ Primary Care Provider [phone] Reason for Visit * Reason Onset Date Comments Pre Op 10/02/2023 Encounter Details Date Type Department Care Team (Late st Contact Info) Description 10/02/2023 Telephone [facility] MEDICINE [address] [place], [place] [phone] Name, MD Hill [address] [place] [address] Pre Op Social History Tobacco Use Types [...] No Surgeon's name: Tomás Hopkins Facility name: [facility] Surgeon's office number: [phone] Surgeon's office fax number: [phone] Contact name: Yohana documented in this encounter Plan of Treatment Upcoming Encounters Date Type Department Care Team (Late st Contact Info) Description 06/16/2024 1:45 PM EDT Office Visit [facility] [address] [place] [address] Name, MD Hill [address] [place] [address] documented as of this encounter Visit Diagnoses Not on filedocumented in this encounter Additional Health Concerns Assessment Noted Time PHQ-9 Depression Total Score: 12 024 1:00 PM EDT documented as of this encounter Care Teams Embedder Relationship Specialty Start Date End Date Name, MD Hill [address] [place] [address] PCP - General Family Medicine 03/15/15 documented as of this encounter
--- OUTSIDE RECORDS SUMMARY | 2024-05-07 11:22 | XMS_ITS | Encounter Summary ---
Author Organization [employer] Address 75 [facility] 7t [place] [address] Care Team Providers Care Senior Electrical Controls Engineer Name Role Phone Name, Hill HERNANDEZ Primary Care Provider Encounter Details Date Type Department Care Team ([facility] Contact Info) Description 03/26/2022 Orders Only [facility] MEDICINE [address] [place] [address] Jaen Oneill LPN Social History Tobacco Use Types [...] Description 06/16/2024 1:45 PM EDT Office Visit [facility] MEDICINE [address] [place] [address] Name, MD Hill [address] [place] [address] documented as of this encounter Visit Diagnoses Not on filedocumented in this encounter Care Teams Senior Electrical Controls Engineer Relationship Specialty Start Date End Date Name, MD Hill [address] [place] [address] PCP - General Family Medicine 03/15/15 documented as of this encounter
--- OUTSIDE RECORDS SUMMARY | 2024-05-07 11:22 | XMS_ITS | Encounter Summary ---
Author Organization [employer] Address 75 [facility] 7t [place] [address] Care Team Providers Care Wood Inspector Name Role Phone Name, Hill HERNANDEZ Primary Care Provider [phone] Reason for Visit * Reason Onset Date Comments FYI 05/07/2023 Encounter Details Date Type Department Care Team ([facility] st Contact Info) Description 05/07/2023 Telephone [facility] MEDICINE [address] [place], [place] [phone] Name, MD Hill [address] [place] [address] FYI Social History Tobacco Use Types Packs/Day [...] blood pressure and Charla rojas advised by writer editor that pt was seen yesterday and have an appt on . Any questions to Dennise [phone] documented in this encounter Plan of Treatment Upcoming Encounters Date Type Department Care Team (Late st Contact Info) Description 06/16/2024 1:45 PM EDT Office Visit [facility] MEDICINE [address] [place] [address] Name, MD Hill [address] [place] [address] documented as of this encounter Visit Diagnoses Not on filedocumented in this encounter Additional Health Concerns Assessment Noted Time PHQ-9 Depression Total Score: 0 03/07/19 24 8:57 AM EST documented as of this encounter Care Teams Wood Inspector Relationship Specialty Start Date End Date Name, MD Hill [address] [place] [address] PCP - General Family Medicine 03/15/15 documented as of this encounter
--- OUTSIDE RECORDS SUMMARY | 2024-05-07 11:22 | XMS_ITS | Encounter Summary ---
Author Organization [employer] Address [address] [facility] 7t [place] [address] Care Team Providers Care Photo Finish Photographer Name Role Phone Name, Hill HERNANDEZ Primary Care Provider [phone] Reason for Visit * Reason Comments Hand Pain Encounter Details Date Type Department Care Team ([facility] st Contact Info) Description 04/20/2024 9:00 AM EST Office Visit [facility] [address], [place] [phone] Tina Powell MD [address] [place] [address] Right wrist tendinitis (Primary Dx); Right hand [...] 8:50 AM EST documented in this encounter Progress Notes * Tina Powell MD - 04/20/2024 9:00 AM EST Images from the original note were not included. SUBJECTIVE: Azeb Kennedy is a 79 y.o. year old female who presents for Walk [facility] Center/hand pain . Denies recent illness, injury, or hospitalization. Acute Concerns: Patient complaining of right wrist pain status post fall on the ice 2 days ago. She also reports recent hand pain as she was she 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 sled machine at the [employer] several times as she was lucid on the game. She denies episode of chest pain, dizziness, headache or palpitations prior to falling. She needed help to get up and since then she is having persistent right hand and wrist pain with limitation for ADLs including getting dressed and cooking. Social History Social History Narrative Not on file Patient Active Problem List Diagnosis Acute hemorrhagic cystitis Arthropathy Atopic conjunctivitis Chronic low back pain Constipation Elevated blood pressure reading without diagnosis of hypertension HTN (hypertension) Gastroesophageal reflux disease without esophagitis Headache Insomnia Lumbar spondylosis Type 2 diabetes mellitus (CMS/HCC) Shoulder pain Rash and nonspecific skin eruption Radicular pain Primary osteoarthritis of both knees Migraine Known medical problems Depression, unspecified Colon cancer screening Dental calculus Generalized gingival recession Excessive attrition of teeth, limited to enamel Missing teeth, acquired COVID-19 Grief Age-related cataract of both eyes Open fracture of tooth Normal oral exam Preop examination Contusion of left breast Contusion of left shoulder Fall (on)(from) sidewalk curb, initial encounter Chronic left hip pain Laceration of left hand without foreign body Right wrist tendinitis Right hand tendonitis Cellulitis of right wrist Acute pain of right shoulder due to trauma No family history on file. Review of Systems Constitutional: Negative for chills, fatigue and fever. HENT: Negative for congestion, ear pain, nosebleeds, rhinorrhea, sinus pressure, sore throat and trouble swallowing. Eyes: Negative for pain and discharge. Respiratory: Negative for cough, chest tightness and shortness of breath. Cardiovascular: Negative for chest pain, palpitations and leg swelling. Gastrointestinal: Negative for abdominal pain, blood in stool, constipation, diarrhea and nausea. Endocrine: Negative for polydipsia and polyuria. Genitourinary: Negative for dysuria, frequency, genital sores, pelvic pain and vaginal discharge. Musculoskeletal: Positive for arthralgias. Negative for back pain and neck pain. Skin: Negative for rash. Allergic/Immunologic: Negative for environmental allergies. Neurological: Negative for dizziness, seizures, weakness, light-headedness and headaches. Hematological: Negative for adenopathy. Psychiatric/Behavioral: Negative for agitation, behavioral problems, self-injury and suicidal ideas. OBJECTIVE: Vitals: 04/20/24 0850 BP: (!) 140/60 Pulse: 84 Resp: 18 Temp: 98.4 ??F (36.9 ??C) Physical Exam HENT: Right Ear: Tympanic membrane and ear canal normal. Left Ear: Tympanic membrane and ear canal normal. Mouth/Throat: Mouth: Mucous membranes are moist. Pharynx: No oropharyngeal exudate or posterior oropharyngeal erythema. Eyes: Pupils: Pupils are equal, round, and reactive to light. Cardiovascular: Rate and Rhythm: Regular rhythm. Pulses: Normal pulses. Heart sounds: Normal heart sounds. No murmur heard. Pulmonary: Breath sounds: Normal breath sounds. Abdominal: General: Bowel sounds are normal. Palpations: Abdomen is soft. Tenderness: There is no abdominal tenderness. Musculoskeletal: Right shoulder: Tenderness present. Decreased range of motion. Right wrist: Swelling (cubital side), tenderness and bony tenderness present. Decreased range of motion. Right hand: Tenderness (base of 5th digit/lateral side) and bony tenderness present. Decreased range of motion. Decreased strength. Arms: Cervical back: Neck supple. Comments: Erythema on the lateral aspect of the right wrist extended to the distal aspect of the right forearm Skin: General: Skin is warm. Neurological: General: No focal deficit present. Mental Status: She is alert and oriented to person, place, and time. Psychiatric: Mood and Affect: Mood normal. Behavior: Behavior normal. Problem List Items Addressed This Visit Right wrist tendinitis - Primary Right hand/wrist immobilized with a splint. Take meloxicam x 1 week and Tylenol as needed Can continue using brace as needed, if symptoms are not resolved, she may need to be referred to OT. Relevant Orders XR Wrist 3+ Views Right (Completed) Right hand tendonitis Right hand immobilized with a splint. Take meloxicam x 1 week and Tylenol as needed Can continue using brace as needed, if symptoms are not resolved, she may need to be referred to OT. Relevant Orders XR Wrist 3+ Views Right (Completed) XR Hand 3+ Views Right (Completed) Cellulitis of right wrist Most likely related [...] she may need to follow-up with PCP. Relevant Orders XR Shoulder 2+ Views Right (Completed) Follow Up: Current Outpatient Medications on File Prior to Visit Medication Sig Dispense Refill amitriptyline (Elavil) 25 MG tablet TAKE 1 TABLET BY MOUTH AT BEDTIME 30 tablet 1 baclofen (Lioresal) 10 MG tablet Take 0.5 tablets (5 mg) by mouth if needed at bedtime for muscle spasms. May take 1 tablet hs prn if tolerated. 20 tablet 0 Blood Glucose Monitoring Suppl (ONE TOUCH ULTRA 2) w/Device kit TEST BLOOD SUGAR THREE TIMES DAILY 1 kit 0 cetirizine (ZyrTEC) 10 MG tablet Take 1 tablet (10 mg) by mouth Once per day. 60 tablet 0 chlorhexidine (Peridex) 0.12 % solution Swish 15 mL morning and night for 1 minute. Spit, do not swallow. Do not eat or drink for 30 minutes following use. 473 mL 0 Diclofenac Sodium 1 % gel Apply thin layer twice a day to the affected area 100 g 2 empagliflozin (Jardiance) 10 MG Take 1 tablet (10 mg) by mouth in the morning. 30 tablet 11 Romy-Dryl 25 MG tablet TAKE 1 TABLET BY MOUTH AT BEDTIME NEEDED FOR SLEEP 30 tablet 0 Lancets (OneTouch Delica Plus [id number]) misc TEST BLOOD SUGAR THREE TIMES DAILY Lancets (OneTouch Delica Plus [id number]) misc TEST BLOOD SUGAR THREE TIMES DAILY 100 each 11 lidocaine-prilocaine (Emla) 2.5-2.5 % cream Apply topically if needed in the morning and at bedtimefor mild pain. 30 g 0 lisinopril 2.5 MG tablet TAKE 1 TABLET BY MOUTH DAILY IN THE MORNING 90 tablet 1 metFORMIN (Glucophage) 850 MG tablet TAKE 1 TABLET BY MOUTH TWICE DAILY, WITH BREAKFAST AND WITH DINNER. 60 tablet 11 Misc. Devices (Pulse Oximeter) misc 1 each 3 times daily. 1 each 0 omega-3 (Fish Oil) 1000 MG capsule omeprazole (PriLOSEC) [address] capsule TAKE 1 CAPSULE BY MOUTH EVERY MORNING 30 capsule 3 OneTouch Ultra Test test strip TEST BLOOD SUGAR THREE TIMES DAILY 150 strip 11 pravastatin (Pravachol) 10 MG tablet Take 1 tablet (10 mg) by mouth Once per day. 90 tablet 3 SUMAtriptan (Imitrex) 25 MG tablet Take 1 tablet (25 mg) by mouth 1 (one) time if needed for migraine for up to 9 doses. May repeat dose once in 2 hours if no relief. Do not exceed 2 doses in 24 hours. 9 tablet 0 No current facility-administered medications on file prior to visit. documented in this encounter Miscellaneous Notes * [...] Description 06/16/2024 1:45 PM EDT Office Visit [facility] [address] [place] [address] Name, MD Hill [address] [place] [address] documented as of this encounter Procedures Procedure Name Priority Date/Time Associated Diagnosis Comments XR HAND 3+ VIEWS RIGHT Routine 04/20/2024 9:42 AM EST Right hand tendonitis XR WRIST 3+ VIEWS RIGHT Routine 04/20/2024 9:41 AM EST Right hand tendonitis Right wrist tendinitis XR SHOULDER 2+ VIEWS RIGHT Routine 04/20/2024 9:41 AM EST Acute pain of right shoulder due to trauma documented in this encounter Results * XR Hand 3+ Views Right (04/20/2024 9:42 AM EST) Anatomical Region Laterality Modality Upper Extremities, Hand Right [facility] 04/20/2024 9:42 AM EST Narrative 04/20/2024 10:37 AM EST ?[facility] ?[address] [place] ?JN Jimenez ?XRay Report ? Signed ? Patient: Kennedy,Azeb ?MR#: [id number] ?? 4 ? : 1945 ?Acct:[id number] ? Age/Sex: 79 / F ?ADM Date: 02/24/25 ? Loc: HO.HHCX ? Attending Dr: Tina Powell MD ? Ordering Physician: Tina Powell MD ?? Date of Service: 04/20/24 ?? Procedure(s): XR hand RT min 3V ?? Accession Number(s): [id number] ? cc: Tina Powell MD ? EXAMINATION: [...] ??James Gonzalez MD ??04/20/2024 10:34 AM EST ? Dictated By: ?James Gonzalez MD ? Signed By: ?<Electronically signed by James Gonzalez MD in OV> ?04/20/24 1034 ? DD/ 0942 ? TD/TT: 04/20/24 1000 ? Cissp: ? Procedure Note [place], Image - 04/20/[address] [address] XRay Report Signed Patient: Abraham Kennedy#: [id number] 4 : 8Acct:[id number] Age/Sex: 79 / FADM Date: 04/20/24 Loc: HO.HHCX Attending Dr: Tina Powell MD Ordering Physician: Tina Powell MD Date of Service: 04/20/24 Procedure(s): XR hand RT min 3V Accession Number(s): [id number] cc: Tina Powell MD EXAMINATION: XR HAND [...] James Gonzalez MD 04/20/2024 10:34 AM EST RP Dictated By: James Gonzalez MD Signed By: <Electronically signed by James Gonzalez MD in OV> 04/20/24 1034 DD/ 0942 TD/TT: 04/20/24 1000 Cissp: us Tina Powell MD IMG XR PROCEDURES Final Result * XR Shoulder 2+ Views Right (04/20/2024 9:41 AM EST) Anatomical Region Laterality Modality Upper Extremities, Shoulder Right Radi ographic Imaging 04/20/2024 9:41 AM EST Narrative 04/20/2024 10:38 AM EST ?[facility] ?[address] ?[place] [address] ?XRay Report ? Signed ? Patient: Azeb Kennedy ?MR#: [id number] ?? 4 ? : 1945 ?Acct:[id number] ? Age/Sex: 79 / F ?ADM Date: 04/20/24 ? Loc: HO.HHCX ? Attending Dr: Tina Powell MD ? Ordering Physician: Tina Powell MD ?? Date of Service: 04/20/24 ?? Procedure(s): XR shoulder RT min 2V ?? Accession Number(s): [id number] ? cc: Tina Powell MD ? EXAMINATION: [...] DD/ 0941 ? TD/TT: 04/20/24 1000 ? Cissp: ? Procedure Note [place], Image - 04/20/[address] [address] XRay Report Signed Patient: Abraham Kennedy#: [id number] 4 : 8Acct:[id number] Age/Sex: 79 / FADM Date: 04/20/24 Loc: HO.HHCX Attending Dr: Tina Powell MD Ordering Physician: Tina Powell MD Date of Service: 04/20/24 Procedure(s): XR shoulder RT min 2V Accession Number(s): [id number] cc: Tina Powell MD EXAMINATION: XR SHOULDER, [...] 04/20/24 1035 DD/ 0941 TD/TT: 04/20/24 1000 Cissp: us Tina Powell MD IMG XR PROCEDURES Final Result * XR Wrist 3+ Views Right (04/20/2024 9:41 AM EST) Anatomical Region Laterality Modality Upper Extremities, Wrist Right Radiogr aphic Imaging 04/20/2024 9:41 AM EST Narrative 04/20/2024 10:53 AM EST ?[facility] ?[address] ?[place] [address] ?XRay Report ? Signed ? Patient: Kennedy,Azeb ?MR#: [id number] ?? 4 ? : 1945 ?Acct:[id number] ? Age/Sex: 79 / F ?ADM Date: 04/20/24 ? Loc: HO.HHCX ? Attending Dr: Tina Powell MD ? Ordering Physician: Tina Powell MD ?? Date of Service: 04/20/24 ?? Procedure(s): XR wrist RT min 3V ?? Accession Number(s): [id number] ? cc: Tina Powell MD ? EXAMINATION: [...] MD in OV> ?04/20/24 1049 ? DD/ ? TD/TT: 04/20/24 1000 ? Cissp: ? Procedure Note Donotgabriella, Image - 04/20/2024 [facility] [address] [place] [address] XRay Report Signed Patient: Abraham Kennedy#: [id number] 4 : 8Acct:[id number] Age/Sex: 79 / FADM Date: 04/20/24 Loc: .HHCX Attending Dr: Tina Powell MD Ordering Physician: Tina Powell MD Date of Service: 04/20/24 Procedure(s): XR wrist RT min 3V Accession Number(s): [id number] cc: Tina Powell MD EXAMINATION: XR WRIST, [...] 04/20/24 1049 DD/ 0941 TD/TT: 04/20/24 1000 Cissp: Tina Powell MD IMG XR PROCEDURES Final Result documented in this encounter Visit Diagnoses Diagnosis Right wrist tendinitis- Primary Right hand tendonitis Cellulitis of right wrist Acute pain of right shoulder due to trauma documented in this encounter Additional Health Concerns Assessment Noted Time PHQ-9 Depression Total Score: 4 03/17/19 25 2:14 PM EST documented as of this encounter Care Teams Photo Finish Photographer Relationship Specialty Start Date End Date Name, MD Hill [address] [place] [address] PCP - General Family Medicine 03/15/15 documented as of this encounter
--- OUTSIDE RECORDS SUMMARY | 2024-05-07 11:22 | XMS_ITS | Encounter Summary ---
Author Organization [employer] Address [address] [facility] 7t [place] [address] Care Team Providers Care Senior Information Security Analyst Name Role Phone Name, Hill HERNANDEZ Primary Care Provider [phone] Reason for Visit * Reason Onset Date Comments Med Refill telephone call 10/20/2022 [facility] [facility] 10/20/2022 The pt requested to have her [employer] services reinstated by CHUYITA. I called to inform her, that she needs to contact her insurance [facility] to make the request, because the referral needs to go through them. I reached a voicemail, and left a msg with the above information. I asked her to contact me at ext [phone], if she has any questions. Encounter Details Date Type Department Care Team (Late st Contact Info) Description 10/20/2022 Refill [facility] [address] [place] [address] Name, MD Hill [address] [place] [address] Social History Tobacco Use Types Packs/Day Years [...] EDT The pt requested to have her [employer] services reinstated by [facility]. I called to inform her, that she needs to contact her insurance [facility] to make the request, because the referral needs to go through them. I reached a voicemail, and left a msg with the above information. I asked her to contact me at ext [phone], if she has any questions. * Telephone Encounter - Hope Zora - 10/22/2022 10:20 AM EDT Pt walked in requesting a call from PCP or nurses, because she has a question about micro lab analyst services and a form that her pcp signed and she has not hear anything from no one she doesn't specify exactly what she needs, she just wants the call. I told her to go to medical records she said they don't havethe form. Best # to call is [phone] documented in this encounter Plan of Treatment Upcoming Encounters Date Type Department Care Team (Late st Contact Info) Description 06/16/2024 1:45 PM EDT Office Visit [facility] [address] [place] [phone] Name, MD Hill [address] [place] [address] documented as of this encounter Visit Diagnoses Not on filedocumented in this encounter Additional Health Concerns Assessment Noted Time PHQ-9 Depression Total Score: 19 023 1:35 PM EDT documented as of this encounter Care Teams Senior Information Security Analyst Relationship Specialty Start Date End Date Name, MD Hill [address] [place] [address] PCP - General Family Medicine 03/15/15 documented as of this encounter
--- OUTSIDE RECORDS SUMMARY | 2024-05-07 11:22 | XMS_ITS | Encounter Summary ---
Author Organization [employer] Address [address] [facility] 7t [place] [address] Care Team Providers Care Roof Truss Machine Tender Name Role Phone Name, Hill HERNANDEZ Primary Care Provider [phone] Encounter Details Date Type Department Care Team (Latest Contact Info) Description 04/15/2018 Abstract [facility] Dental, Provider, DDS Social [...] Description 06/16/2024 1:45 PM EDT Office Visit [facility] [address] [place] [address] Name, MD Hill [address] [place] [address] documented as of this encounter Visit Diagnoses Not on filedocumented in this encounter Care Teams Roof Truss Machine Tender Relationship Specialty Start Date End Date Name, MD Hill [address] [place] [address] PCP - General Family Medicine 03/15/15 documented as of this encounter
--- OUTSIDE RECORDS SUMMARY | 2024-05-07 11:23 | XMS_ITS | Encounter Summary ---
Author Organization [email or web address] Address [address] [facility] 7t [place] [address] Care Team Providers Care Fruit Coordinator Name Role Phone Name, Hill HERNANDEZ Primary Care Provider [phone] Reason for Visit * Reason Onset Date Comments Pre-op Visit 04/25/2023 Encounter Details Date Type Department Care Team ([facility] st Contact Info) Description 04/25/2023 Telephone [facility] [address] [place], [place] [phone] Name, MD Hill [address] [place] [address] Pre-op Visit Social History Tobacco Use Types [...] Lab needed: No EKG: No Surgeon's name: [facility] [place] name: [facility] Surgeon's office number: [phone] Surgeon's office fax number: [phone] Contact name (person you spoke with): Patricia Last office note from surgeon requested documented in this encounter Plan of Treatment Upcoming Encounters Date Type Department Care Team (Late st Contact Info) Description 06/16/2024 1:45 PM EDT Office Visit [facility] [address] [place] [phone] Name, MD Hill [address] [place] [address] documented as of this encounter Visit Diagnoses Not on filedocumented in this encounter Additional Health Concerns Assessment Noted Time PHQ-9 Depression Total Score: 0 03/07/19 24 8:57 AM EST documented as of this encounter Care Teams Fruit Coordinator Relationship Specialty Start Date End Date Name, MD Hill [address] [place] [address] PCP - General Family Medicine 03/15/15 documented as of this encounter
== END 2024-05-07 10:24 | disposition home or self-care (01) ==
LOC: HO.HOS 09:33
PROVIDERS: PCP Internal Medicine Geriatric Medicine; Visit Provider Orthopaedic Surgery
DX: M17.0 Bilateral primary osteoarthritis of knee (principal)
CPT/HCPCS: 99203; G2211

== ENCOUNTER → 2024-05-07 09:33 | Outpatient (BNVA) | payer OTHER, SELFPAY | PROVIDERS: PCP Internal Medicine Geriatric Medicine; Visit Provider Orthopaedic Surgery | DX: M17.0 Bilateral primary osteoarthritis of knee (principal) | CPT/HCPCS: 99202 ==

== ENCOUNTER 2024-05-20 09:28 | Outpatient (REF) | payer OTHER, SELFPAY ==
--- NOTE | ~2024-05-20 | XR_ITS ---
EXAMINATION: XR SHOULDER 2 OR MORE VIEWS RIGHT HISTORY: fell, injured right shoulder. COMPARISON: Comparison is made with the prior examination dated 04/20/2024. FINDINGS: Three views of the left shoulder are submitted. Osseous mineralization is normal. No acute fracture or dislocation is seen. There is mild degenerative changes in the glenohumeral joint and severe osteoarthritis of the AC joint. The soft tissues are unremarkable. XR/XR shoulder RT min 2V IMPRESSION: Degenerative changes of the right shoulder as described. Electronically signed by: James Gonzalez MD 05/20/2024 09:49 AM EDT
--- OUTSIDE RECORDS SUMMARY | 2024-05-20 10:35 | XMS_ITS | Encounter Summary ---
Author Organization [employer] Address [address] [facility] 7t [place] [address] Care Team Providers Care Deck Builder Name Role Phone Name, Hill HERNANDEZ Primary Care Provider [phone] Reason for Visit * Reason Onset Date Comments Pre Op 10/02/2023 Encounter Details Date Type Department Care Team (Late st Contact Info) Description 10/02/2023 Telephone [facility] [address] [place], [place] [phone] Name, MD Hill [address] [place] [address] Pre Op Social History Tobacco Use Types [...] No Surgeon's name: Tomás Hopkins Facility name: [facility] Surgeon's office number: [phone] Surgeon's office fax number: [phone] Contact name: Yohana documented in this encounter Plan of Treatment Upcoming Encounters Date Type Department Care Team (Late st Contact Info) Description 06/16/2024 1:45 PM EDT Office Visit [facility] [address] [place] [address] Name, MD Hill [address] [place] [address] documented as of this encounter Visit Diagnoses Not on filedocumented in this encounter Additional Health Concerns Assessment Noted Time PHQ-9 Depression Total Score: 12 024 1:00 PM EDT documented as of this encounter Care Teams Deck Builder Relationship Specialty Start Date End Date Name, MD Hill [address] [place] [address] PCP - General Family Medicine 03/15/15 documented as of this encounter
--- OUTSIDE RECORDS SUMMARY | 2024-05-20 10:35 | XMS_ITS | Encounter Summary ---
Author Organization [employer] Address [address] [facility] 7t [place] [address] Care Team Providers Care New Car Sales Manager Name Role Phone Name, Hill HERNANDEZ Primary Care Provider [phone] Reason for Visit * Reason Comments Hand Pain Encounter Details Date Type Department Care Team ([facility] st Contact Info) Description 04/20/2024 9:00 AM EST Office Visit [facility] [address] [place], [place] [phone] Tina Powell MD [address] [place] [address] Right wrist tendinitis (Primary Dx); Right hand [...] 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 sled machine at the [employer] several times as she was lucid on [...] 30 tablet 0 Lancets (OneTouch Delica Plus [id number]) misc TEST BLOOD SUGAR THREE TIMES DAILY Lancets (OneTouch Delica Plus [id number]) misc TEST BLOOD SUGAR THREE TIMES DAILY [...] 06/16/2024 1:45 PM EDT Office Visit [facility] [address] [place] [address] Name, MD Hill [address] [place] [address] documented as of this encounter Procedures Procedure [...] Laterality Modality Upper Extremities, Hand Right [facility] 04/20/2024 9:42 AM EST Narrative 04/20/2024 10:37 AM EST ?[facility] ?[address] [place] ?JN Jimenez ?XRay Report ? Signed ? Patient: Kennedy,Azeb ?MR#: [id number] ?? 4 ? : 1945 ?Acct:[id number] ? Age/Sex: 79 / F ?ADM Date: 02/24/25 ? Loc: HO.HHCX ? Attending Dr: Tina Powell MD ? Ordering Physician: Tina Powell MD ?? Date of Service: 04/20/24 ?? Procedure(s): XR hand RT min 3V ?? Accession Number(s): [id number] ? cc: Tina Powell MD ? EXAMINATION: [...] DD/ 0942 ? TD/TT: 04/20/24 1000 ? Lan Analyst: ? Procedure Note Mayrahamlet, Image - 04/20/[address] [address] XRay Report Signed Patient: Abraham Kennedy#: [id number] 4 : 8Acct:[id number] Age/Sex: 79 / FADM Date: 04/20/24 Loc: HO.HHCX Attending Dr: Tina Powell MD Ordering Physician: Tina Powell MD Date of Service: 04/20/24 Procedure(s): XR hand RT min 3V Accession Number(s): [id number] cc: Tina Powell MD EXAMINATION: XR HAND [...] 04/20/24 1034 DD/ 0942 TD/TT: 04/20/24 1000 Lan Analyst: us Tina Powell MD IMG XR PROCEDURES Final Result * XR Shoulder 2+ Views Right (04/20/2024 9:41 AM EST) Anatomical Region Laterality Modality Upper Extremities, Shoulder Right Radi ographic Imaging 04/20/2024 9:41 AM EST Narrative 04/20/2024 10:38 AM EST ?[facility] ?[address] ?[place] [address] ?XRay Report ? Signed ? Patient: Azeb Kennedy ?MR#: [id number] ?? 4 ? : 1945 ?Acct:[id number] ? Age/Sex: 79 / F ?ADM Date: 04/20/24 ? Loc: HO.HHCX ? Attending Dr: Tina Powell MD ? Ordering Physician: Tina Powell MD ?? Date of Service: 04/20/24 ?? Procedure(s): XR shoulder RT min 2V ?? Accession Number(s): [id number] ? cc: Tina Powell MD ? EXAMINATION: [...] DD/ 0941 ? TD/TT: 04/20/24 1000 ? Lan Analyst: ? Procedure Note Trinity, Image - 04/20/[address] [address] XRay Report Signed Patient: Abraham Kennedy#: [id number] 4 : 8Acct:[id number] Age/Sex: 79 / FADM Date: 04/20/24 Loc: HO.HHCX Attending Dr: Tina Powell MD Ordering Physician: Tina Powell MD Date of Service: 04/20/24 Procedure(s): XR shoulder RT min 2V Accession Number(s): [id number] cc: Tina Powell MD EXAMINATION: XR SHOULDER, [...] 04/20/24 1035 DD/ 0941 TD/TT: 04/20/24 1000 Lan Analyst: us Tina Powell MD IMG XR PROCEDURES Final Result * XR Wrist 3+ Views Right (04/20/2024 9:41 AM EST) Anatomical Region Laterality Modality Upper Extremities, Wrist Right Radiogr aphic Imaging 04/20/2024 9:41 AM EST Narrative 04/20/2024 10:53 AM EST ?[facility] ?[address] ?[place] [address] ?XRay Report ? Signed ? Patient: Kennedy,Azeb ?MR#: [id number] ?? 4 ? : 1945 ?Acct:[id number] ? Age/Sex: 79 / F ?ADM Date: 04/20/24 ? Loc: HO.HHCX ? Attending Dr: Tina Powell MD ? Ordering Physician: Tina Powell MD ?? Date of Service: 04/20/24 ?? Procedure(s): XR wrist RT min 3V ?? Accession Number(s): [id number] ? cc: Tina oPwell MD ? EXAMINATION: ?? XR WRIST, RIGHT [...] ? DD/ ? TD/TT: 04/20/24 1000 ? Lan Analyst: ? Procedure Note Donotgabriella, Image - 04/20/2024 [facility] [address] [place] [address] XRay Report Signed Patient: Abraham Kennedy#: [id number] 4 : 8Acct:[id number] Age/Sex: 79 / FADM Date: 04/20/24 Loc: .HHCX Attending Dr: Tina Powell MD Ordering Physician: Tina Powell MD Date of Service: 04/20/24 Procedure(s): XR wrist RT min 3V Accession Number(s): [id number] cc: Tina Powell MD EXAMINATION: XR WRIST, [...] 04/20/24 1049 DD/ 0941 TD/TT: 04/20/24 1000 Lan Analyst: Tina Powell MD IMG XR PROCEDURES Final Result documented in this encounter Visit Diagnoses Diagnosis Right wrist tendinitis- Primary Right hand tendonitis Cellulitis of right wrist Acute pain of right shoulder due to trauma documented in this encounter Additional Health Concerns Assessment Noted Time PHQ-9 Depression Total Score: 4 03/17/19 25 2:14 PM EST documented as of this encounter Care Teams New Car Sales Manager Relationship Specialty Start Date End Date Name, MD Hill [address] [place] [address] PCP - General Family Medicine 03/15/15 documented as of this encounter
--- OUTSIDE RECORDS SUMMARY | 2024-05-20 10:35 | XMS_ITS | Patient Health Record ---
Author Organization [facility] Address [address] [place] [address] Care Team Providers Care Traffic Supervisor Name Role Phone Name Hill HERNANDEZ Primary Care Provider James Kaur [phone] Allergies No Known Allergies Reason For Referral No Information Medications Medication SIG (Take, Route, Frequency, Duration) Notes Start Date End Date Status Amitriptyline HCl 25 MG 1 tablet at bedt juan josé Orally Once a day Active Tylenol 8 Hour Arthritis Pain 650 MG 2 tablets as needed Orally every 8 hrs Active Omeprazole 20 MG TAKE 1 CAPSULE BY [facility] DAILY IN THE MORNING Oral for [...] Problem Status W/U Status Risk Notes Problem 185096542 Colon cancer screening (Z12.11) Active confirmed Problem 815513562 Gastroesophageal reflux disease without esophagitis (K21.9) Active confirmed Problem 145750302 Gastroesophageal reflux disease, esophagitis presence not specified (K21.9) Active confirmed Problem 50379528 Constipation, unspecified constipation type (K59.00) Active confirmed Plan Of Treatment Future Test Test Name Order Date COLONOSCOPY 12/02/2013 Next Appt Details Provider Name:James Easton , 06/09/2024 10:10:00 AM, [address], [address], [place], [address], Insurance Providers Payer Name Payer Address Payer Phone Subscriber Number Group Number Insured Name Patient Relationship to Insured Coverage Start Date Coverage End Date [facility] [address] [address] [place] [address] [phone] [id number] RAFFAELE CHUNG Self - patient is the insured Medicare of [place] [employer] [address] [place] [address] [id number] RAFFAELE CHUNG Self - patient is the insured Medical (General) History Medical History History ICD Code Tubular adenomas removed in 2004. She had negative followup colonoscopies in 06/2008 and in 02/2014. Diverticulosis GERD--EGD in 2004-small HH--no sig. esop hagitis nor Mccall's Denies [place],CVA,Lung disease,renal disease NIDDM Surgical History Surgery Date(Month/Year) Cholecystectomy Tubal ligation Hysterectomy with ? removal of one ovary Breast reduction Left foot 08/2021
--- OUTSIDE RECORDS SUMMARY | 2024-05-20 10:35 | XMS_ITS | Encounter Summary ---
Author Organization [employer] Address [address] [facility] 7t [place] [address] Care Team Providers Care Special Order Jeweler Name Role Phone Name, Hill HERNANDEZ Primary Care Provider [phone] Reason for Visit * Reason Onset Date Comments requesting a call 09/04/2022 Encounter Details Date Type Department Care Team ([facility] st Contact Info) Description 09/04/2022 Telephone [facility] [address] [place] [address] [phone] Name, MD Hill [address] [place] [address] requesting a call Social History Tobacco Use [...] - 09/05/2022 2:46 PM EDT T/C to [phone] for below message through [employer] id - [id number] for below message, pt. States she is all set, she does not has any question right now. Pt. Advised to give call to [facility] if any questions or concerns. * Telephone Encounter - Hemalatha Rodriguez - 09/04/2022 2:39 PM EDT Tc from pt requesting a call. Pt did not go in to detail and is aware of upcoming appointment. Please contact pt at [phone] (Nigerian speaker) documented in this encounter Plan of Treatment Upcoming Encounters Date Type Department Care Team (Late st Contact Info) Description 06/16/2024 1:45 PM EDT Office Visit [facility] [address] [place] [address] Name, MD Hill [address] [place] [address] documented as of this encounter Visit Diagnoses Not on filedocumented in this encounter Additional Health Concerns Assessment Noted Time PHQ-9 Depression Total Score: 19 023 1:35 PM EDT documented as of this encounter Care Teams Special Order Jeweler Relationship Specialty Start Date End Date Name, MD Hill [address] [place] [address] PCP - General Family Medicine 03/15/15 documented as of this encounter
--- OUTSIDE RECORDS SUMMARY | 2024-05-20 10:35 | XMS_ITS | Encounter Summary ---
Author Organization [employer] Address [address] [facility] 7t [place] [address] Care Team Providers Care Radio Broadcaster Name Role Phone Name, Hill HERNANDEZ Primary Care Provider [phone] Reason for Visit * Reason Onset Date Comments triage 07/19/2022 Encounter Details Date Type Department Care Team ([facility] st Contact Info) Description 07/19/2022 Telephone [facility] [address] [place], [place] [phone] Name, MD Hill [address] [place] [address] triage Social History Tobacco Use Types Packs/Day [...] worse The caller accepted this outcome speaks nepali documented in this encounter Plan of Treatment Upcoming Encounters Date Type Department Care Team (Late st Contact Info) Description 06/16/2024 1:45 PM EDT Office Visit [facility] [address] [place] [address] Name, MD Hill [address] [place] [address] documented as of this encounter Visit Diagnoses Not on filedocumented in this encounter Additional Health Concerns Assessment Noted Time PHQ-9 Depression Total Score: 19 023 1:35 PM EDT documented as of this encounter Care Teams Radio Broadcaster Relationship Specialty Start Date End Date Name, MD Hill [address] [place] [address] PCP - General Family Medicine 03/15/15 documented as of this encounter
--- OUTSIDE RECORDS SUMMARY | 2024-05-20 10:35 | XMS_ITS | Encounter Summary ---
Author Organization [employer] Address [address] [facility] 7t [place] [address] Care Team Providers Care Dot Compliance Coordinator Name Role Phone Name, Hill HERNANDEZ Primary Care Provider [phone] Encounter Details Date Type Department Care Team (Latest Contact Info) Description 04/21/2019 Abstract [facility] CONVERSIONS Dental, Provider, DDS Social [...] Description 06/16/2024 1:45 PM EDT Office Visit [facility] [address] [place] [address] Name, MD Hill [address] [place] [address] documented as of this encounter Visit Diagnoses Not on filedocumented in this encounter Care Teams Dot Compliance Coordinator Relationship Specialty Start Date End Date Name, MD Hill [address] [place] [address] PCP - General Family Medicine 03/15/15 documented as of this encounter
--- OUTSIDE RECORDS SUMMARY | 2024-05-20 10:35 | XMS_ITS | Encounter Summary ---
Author Organization [employer] Address [address] [facility] 7t [place] [address] Care Team Providers Care Surveillance Camera Technician Name Role Phone Name, Hill HERNANDEZ Primary Care Provider [phone] Encounter Details Date Type Department Care Team (Latest Contact Info) Description 01/06/2020 Abstract [facility] CONVERSIONS Dental, Provider, DDS Social History [...] Description 06/16/2024 1:45 PM EDT Office Visit [facility] 230 [place] [address] Name, MD Hill [address] [place] [address] documented as of this encounter Visit Diagnoses Not on filedocumented in this encounter Care Teams Surveillance Camera Technician Relationship Specialty Start Date End Date Name, MD Hill [address] [place] [address] PCP - General Family Medicine 03/15/15 documented as of this encounter
--- OUTSIDE RECORDS SUMMARY | 2024-05-20 10:35 | XMS_ITS | Encounter Summary ---
Author Organization [employer] Address [address] [facility] 7t [place] [address] Care Team Providers Care Book Illustrator Name Role Phone Name, Hill HERNANDEZ Primary Care Provider Reason for Visit * Reason Onset Date Comments Call Back Request 02/01/2023 Encounter Details Date Type Department Care Team ([facility] st Contact Info) Description 02/01/2023 Telephone [facility] [address] [place], [place] [phone] Name, MD Hill [address] [place] [address] Call Back Request Social History Tobacco Use [...] 2:16 PM EST T/C to pt. Through [employer] id - [id number] for below message to inform submit paperwork regarding SITE TECHNICIAN hours at medical records/ forms dept. Pt. Verbally agreed and understood. * Telephone Encounter - Aylin Duncan - 02/01/2023 3:37 PM EST Tc from pt requesting a call back in regards paperwork for SITE TECHNICIAN hours. documented in this encounter Plan of Treatment Upcoming Encounters Date Type Department Care Team (Late st Contact Info) Description 06/16/2024 1:45 PM EDT Office Visit [facility] [address] [place] [address] Name, MD Hill [address] [place] [address] documented as of this encounter Visit Diagnoses Not on filedocumented in this encounter Additional Health Concerns Assessment Noted Time PHQ-9 Depression Total Score: 19 023 1:35 PM EDT documented as of this encounter Care Teams Book Illustrator Relationship Specialty Start Date End Date NameHill MD [address] [place] [address] PCP - General Family Medicine 03/15/15 documented as of this encounter
--- OUTSIDE RECORDS SUMMARY | 2024-05-20 10:35 | XMS_ITS | Encounter Summary ---
Author Organization [employer] Address [address] [facility] 7t [place] [address] Care Team Providers Care Green Building Architect Name Role Phone Name, Hill HERNANDEZ Primary Care Provider [phone] Reason for Visit * Reason Onset Date Comments Med Refill telephone call 10/20/2022 DATE NIGHT CAREGIVER Services 10/20/2022 The pt requested to have her DATE NIGHT CAREGIVER services reinstated by CHUYITA. I called to inform her, that she needs to contact her insurance [facility] to make the request, because the referral needs to go through them. I reached a voicemail, and left a msg with the above information. I asked her to contact me at ext [phone], if she has any questions. Encounter Details Date Type Department Care Team (Late st Contact Info) Description 10/20/2022 Refill [facility] 230 [place] [address] Name, MD Hill [address] [place] [address] Social History Tobacco Use Types Packs/Day Years [...] EDT The pt requested to have her DATE NIGHT CAREGIVER services reinstated by CHUYITA. I called to inform her, that she needs to contact her insurance [facility] to make the request, because the referral needs to go through them. I reached a voicemail, and left a msg with the above information. I asked her to contact me at ext [phone], if she has any questions. * Telephone Encounter - Hope Zora - 10/22/2022 10:20 AM EDT Pt walked in requesting a call from PCP or nurses, because she has a question about entry level installation technician services and a form that her pcp signed and she has not hear anything from no one she doesn't specify exactly what she needs, she just wants the call. I told her to go to medical records she said they don't havethe form. Best # to call is [phone] documented in this encounter Plan of Treatment Upcoming Encounters Date Type Department Care Team (Late st Contact Info) Description 06/16/2024 1:45 PM EDT Office Visit [facility] [address] [place] [address] Name, MD Hill [address] [place] [address] documented as of this encounter Visit Diagnoses Not on filedocumented in this encounter Additional Health Concerns Assessment Noted Time PHQ-9 Depression Total Score: 19 023 1:35 PM EDT documented as of this encounter Care Teams Green Building Architect Relationship Specialty Start Date End Date Name, MD Hill [address] [place] [address] PCP - General Family Medicine 03/15/15 documented as of this encounter
--- OUTSIDE RECORDS SUMMARY | 2024-05-20 10:35 | XMS_ITS | Encounter Summary ---
Author Organization [employer] Address [address] [facility] 7t [place] [address] Care Team Providers Care Automobile Club Information Clerk Name Role Phone Name, Hill HERNANDEZ Primary Care Provider [phone] Reason for Visit * Reason Onset Date Comments Med Refill 05/12/2024 Encounter Details Date Type Department Care Team (Late st Contact Info) Description 05/08/2024 Refill [facility] [address] [place], [place] [phone] Name, MD Hill [address] [place] [address] Social History Tobacco Use Types Packs/Day Years [...] encounter Miscellaneous Notes * Telephone Encounter - Adela Samson RN - 05/12/2024 1:25 PM EDT Tc to [facility] to advised them to provide pt counseling to pt to avoid pt double dosing their medication. Pankaj expressed they put a pt certified lactation counselor stamp on the refill and will make sure pt receives teaching. * Addendum Note - Adela Samson RN - 05/12/2024 12:20 PM EDTAddended by: ADELA SAMSON on: 05/12/2024 12:20 PM Modules accepted: Orders * Telephone Encounter - Adela Samson RN - 05/12/2024 10:42 AM EDT Pt walked in requesting refills for amitriptyline. Pt is currently out of medications due to takingtwo pills at night which they report their PCP is aware of. Discussed with karely @[facility] who reports pt last picked up their refill on 04/24/24. Karely states if pt would like an increase to 50 mg then a new script can be sent in but if pt agrees to stay at current dose they can discuss with insurancein regards to allow pt to receive refill early. If pt has been taking two pills every night then they would be due for a refill on 05/09/24. Tc to pt via bls id: [id number] to confirm if they would like a dose increase or will they like to stay at the current dose at 25 MG. No answer, lvm to returncall and ask to speak to sully team nurses. Message forwarded to PCP for review. * Telephone Encounter - Britany Melgar - 05/11/2024 3:59 PM EDT Tc from pt returning call in regards message prior * Telephone Encounter - Adela Samson RN - 05/08/2024 4:20 PM EDT Tc to pt via s id: [id number] in regards to pt reports of taking two tablets of a amitriptyline (Elavil) 25 MG tablet per night and states their PCP is aware of this. The correct rx is amitriptyline (Elavil) 25 MG tablet (TAKE 1 TABLET BY MOUTH AT BEDTIME). No answer, lvm to return call and ask to speak to carmela team nurses. Message forwarded to PCP as an FYI. * Telephone Encounter - Shelley Rodriguez - 05/08/2024 2:39 PM EDT Please contact patient to number on chart due to patient is taking amitriptyline (Elavil) 25 MG tablet 2 tablets per night instead of 1 and she states that PCP already know about this. Patient states that 1 pill is not working. Pharmacy states that patient is not supposed to be taking more than 1 pill per night. documented in this encounter Plan of Treatment Upcoming Encounters Date Type Department Care Team (Late st Contact Info) Description 06/16/2024 1:45 PM EDT Office Visit [facility] [address] [place] [address] Name, MD Hill [address] [place] [address] documented as of this encounter Visit Diagnoses Not on filedocumented in this encounter Additional Health Concerns Assessment Noted Time PHQ-9 Depression Total Score: 4 03/17/19 25 2:14 PM EST documented as of this encounter Care Teams Automobile Club Information Clerk Relationship Specialty Start Date End Date Name, MD Hill [address] [place] [address] PCP - General Family Medicine 03/15/15 documented as of this encounter
--- OUTSIDE RECORDS SUMMARY | 2024-05-20 10:35 | XMS_ITS | Encounter Summary ---
Author Organization [employer] Address [address] [facility] 7t [place] [address] Care Team Providers Care Manager Reading Name Role Phone Name, Hill HERNANDEZ Primary Care Provider [phone] Encounter Details Date Type Department Care Team (Late st Contact Info) Description 01/21/[address] [facility] [address] [place], [place] [phone] Name, MD Hill [address] [place] [address] Social History Tobacco Use Types Packs/Day Years [...] PM EDT Office Visit [facility] [address] [place] [address] Name, MD Hill [address] [place] [address] documented as of this encounter Visit Diagnoses Not on filedocumented in this encounter Additional Health Concerns Assessment Noted Time PHQ-9 Depression Total Score: 19 023 1:35 PM EDT documented as of this encounter Care Teams Manager Reading Relationship Specialty Start Date End Date NameHill MD [address] [place] [address] PCP - General Family Medicine 03/15/15 documented as of this encounter
--- OUTSIDE RECORDS SUMMARY | 2024-05-20 10:35 | XMS_ITS | Encounter Summary ---
Author Organization [employer] Address [address] [facility] 7t [place] [address] Care Team Providers Care Hospice Clinical Manager Name Role Phone Name, Hill HERNANDEZ Primary Care Provider [phone] Encounter Details Date Type Department Care Team (Late st Contact Info) Description 07/30/2022 Abstract [facility] [address] [place] [address] [phone] Name, MD Hill [address] [place] [address] [phone] Social History Tobacco Use Types Packs/Day Years [...] Description 06/16/2024 1:45 PM EDT Office Visit [facility] [address] [place] [address] [phone] Name, MD Hill [address] [place] [address] [phone] documented as of this encounter Procedures Procedure [...] documented as of this encounter Care Teams Hospice Clinical Manager Relationship Specialty Start Date End Date Name, MD Hill [address] [place] [address] PCP - General Family Medicine 03/15/15 documented as of this encounter
--- OUTSIDE RECORDS SUMMARY | 2024-05-20 10:35 | XMS_ITS | Encounter Summary ---
Author Organization [employer] Address [address] [facility] 7t [place] [address] Care Team Providers Care Media Theorist And Author Of Name Role Phone Name, Hill HERNANDEZ Primary Care Provider [phone] Encounter Details Date Type Department Care Team ([facility] Contact Info) Description 03/26/2022 Orders Only [facility] [address] [place] [address] Jane Oneill LPN Social History Tobacco Use [...] 06/16/2024 1:45 PM EDT Office Visit [facility] [address] [place] [address] Name, MD Hill [address] [place] [address] documented as of this encounter Visit Diagnoses Not on filedocumented in this encounter Care Teams Media Theorist And Author Of Relationship Specialty Start Date End Date Name, MD Hill [address] [place] [address] PCP - General Family Medicine 03/15/15 documented as of this encounter
--- OUTSIDE RECORDS SUMMARY | 2024-05-20 10:35 | XMS_ITS | Clinical Summary ---
Author Organization [employer] Address [address] [place] [address] Care Team Providers Care Industrial Gas Fitter Name Role Phone Name, Hill HERNANDEZ Primary Care Provider [phone] Allergies No known active allergies Medications * This document contains information received from the source organization and may not represent a complete record from that organization. Lancets (OneTouch Delica Plus [id number]) misc TEST BLOOD SUGAR THREE TIMES DAILY [...] 09/06/19 23 Active Misc. Devices (Pulse Oximeter) miscIndications :COVID-19 1 each 3 times daily. 1 each 02/22/20 23 Active empagliflozin (Jardiance) 10 MG Take 1 tablet (10 mg) by mouth in the morning. 30 tablet 03/07/19 24 Active Lancets (OneTouch Delica Plus [id number]) miscIndications :Diabetes mellitus type 2 in obese TEST BLOOD SUGAR THREE TIMES DAILY 100 each 04/10/19 24 Active OneTouch Ultra Test test stripIndication s:Type 2 diabetes mellitus with other specified complication, without long-term current use of insulin ([facility]) TEST BLOOD SUGAR THREE TIMES DAILY 150 [...] 09/16/19 24 Active Diclofenac Sodium 1 % gelIndications: Chronic low back pain, unspecified back pain laterality, [...] tablet 12/02/19 24 Active lisinopril 2.5 MG tabletIndicatio ns:Essential hypertension TAKE 1 TABLET BY MOUTH DAILY IN THE MORNING 90 tablet 1 12/04/19 24 Active lidocaine-prilo cammy (Emla) 2.5-2.5 % cream Apply topically if needed in the morning and at bedtime for mild pain. 30 g 12/25/19 24 Active baclofen (Lioresal) 10 MG tabletIndicatio ns:Chronic right-sided low back pain with right-sided sciatica Take 0.5 tablets (5 mg) by mouth if needed at bedtime for muscle spasms. May take 1 tablet hs prn if tolerated. 20 tablet 03/17/19 25 Active Blood Glucose Monitoring Suppl (ONE TOUCH ULTRA 2) w/Device kit TEST BLOOD SUGAR THREE TIMES DAILY 1 kit 03/25/19 25 Active meloxicam (Mobic) 15 MG tablet Take 1 tablet (15 mg) by mouth Once per day. 30 tablet 04/20/19 25 026 Active metFORMIN (Glucophage) 850 MG tabletIndicatio ns:Type 2 diabetes mellitus with other specified complication, without long-term current use of insulin ([facility]),Jonnathan mcnulty hypertension TAKE 1 TABLET BY MOUTH TWICE DAILY WITH BREAKFAST AND WITH DINNER 60 tablet 11 05/07/19 25 Active amitriptyline (Elavil) 50 MG tablet TAKE 1 TABLET BY MOUTH AT BEDTIME 30 tablet 1 05/13/19 25 Active oxyCODONE (Roxicodone) 5 MG immediate release tabletIndicatio ns:Shoulder injury, right, initial encounter Take 1 tablet (5 mg) by mouth if needed in the morning, at noon, and at bedtime for severe pain. May cause drowsiness and dizziness. Try using at bedtime initially. 12 tablet 05/21/19 25 Active metFORMIN (Glucophage) 850 MG tabletIndicatio ns:Type 2 diabetes mellitus with other specified complication, without long-term current use of insulin ([facility]),Essen tial hypertension TAKE 1 TABLET BY MOUTH TWICE DAILY, WITH BREAKFAST AND WITH DINNER. 60 tablet 11 04/22/19 24 025 Discontinued amitriptyline (Elavil) 25 MG tablet TAKE 1 TABLET BY MOUTH AT BEDTIME 30 tablet 1 03/19/19 25 025 Discontinued(R eorder (will not trigger notification to Pharmacy)) cefadroxil (Duricef) 500 MG capsule Take 1 [...] family illness. Azeb's boyfriend unexpectedly in the [place]. They have been together for about four years. Azeb lives alone and reports having sense of isolation and feeling lonely. The passing of her boyfriend has been identified as main stressor. PLAN: (check all that apply) Further services needed, but declined Behavioral Health Integration Plan [facility] Patient Self Plan Patient to utilize skills provided in intervention , [facility] as needed, Comply with medication , [...] family illness. Azeb's boyfriend unexpectedly in the [place]. They have been together for about four years. Azeb lives alone and reports having sense of isolation and feeling lonely. The passing of her boyfriend has been identified as main stressor. PLAN: (check all that apply) Further services needed, but declined Behavioral Health Integration Plan [facility] Patient Self Plan Patient to utilize skills provided in intervention , [facility] as needed, Comply with medication , [...] Encounters Date Type Department Care Team Description 05/20/2024 9:00 AM EDT Office Visit [facility] [address] [place] [address] Acute pain of right shoulder (Primary Dx); Shoulder injury, right, initial encounter; Abrasion of right knee, initial encounter; Hypertension, unspecified type 05/08/2024 Refill [facility] [address] [place] [address] NameHill MD 05/06/2024 Refill [facility] [address] [place] [address] NameHill MD Type 2 diabetes mellitus with other specified complication, without long-term current use of insulin ([facility]); Essential hypertension 04/20/2024 9:00 AM EST Office Visit [facility] [address] [address] Tina Powell MD Right wrist tendinitis (Primary Dx); Right hand tendonitis; Cellulitis of right wrist; Acute pain of right shoulder due to trauma 03/24/2024 Refill [facility] [address] [place] [phone] Hill Dickson MD 03/24/2024 Telephone [facility] [address] [place] [phone] Hill Dickson MD 03/18/2024 Telephone [facility] [address] [place] [phone] NameHill MD [facility] 03/18/2024 Telephone [facility] [address] [place] [phone] Hill Dickson MD 03/17/2024 2:00 PM EST Office Visit [address] [address] Name, MD Hill Type 2 diabetes mellitus with other specified complication, without long-term current use of insulin ([facility]) (Primary Dx); Primary osteoarthritis of both knees; Chronic right-sided low back pain with right-sided sciatica; Chronic insomnia 03/09/2024 Telephone [facility] [address] [facility] [place] [address] Livia Tracy MA chart prep 02/24/2024 Refill [facility] [address] [place] [address] Name, MD Hill from Last 3 Months Immunizations Name Administration [...] housing situation today? I have richymirella rolon 03/17/[address] you [...] Sign Reading Time Taken Comments Blood Pressure 166/82 05/20/2024 8:48 AM EDT Pulse 69 05/20/2024 8:48 AM EDT Temperature 36.8 ??C (98.2 ??F) 05/20/2024 8:48 AM ED T Respiratory Rate 19 05/20/2024 8:48 AM EDT Oxygen Saturation 95% 05/20/2024 8:48 AM EDT Inhaled Oxygen Concentration - - Weight 74.7 kg (164 lb 9.6 oz) 05/20/2024 8:48 A M EDT Height 157.5 cm (5' 2 ) 04/20/2024 8:50 AM EST Body Mass Index 30.11 04/20/2024 8:50 AM EST Plan of Treatment Upcoming Encounters Date Type Department Care Team (Late st Contact Info) Description 06/16/2024 1:45 PM EDT Office Visit [facility] [address] [place] [phone] Name, MD Hill [address] [place] [address] Health Maintenance Due Date Last Done Comments [...] 03/17/2025 03/17/2024 Depression Screening 03/17/2025 03/17/2024, 03/17/19 25 Eye Exam 03/22/2025 03/22/2023, 01/10/2023 Tobacco Screening 05/20/2025 05/20/2024 DTaP/Tdap/Td Vaccines (3 - Td or Tdap) [...] Name Priority Date/Time Associated Diagnosis Comments XR SHOULDER 2+ VIEWS RIGHT Routine 05/20/2024 9:29 AM EDT Shoulder injury, right, initial encounter XR HAND 3+ VIEWS RIGHT Routine 04/20/2024 [...] without long-term current use of insulin (CMS/HCC) POCT GLYCATED HEMOGLOBIN, TOTAL Routine 03/17/2024 2:16 PM EST Type 2 diabetes mellitus with other specified complication, without long-term current use of insulin (CMS/HCC) ALBUMIN, RANDOM URINE W/CREATININE Routine 09/09/2023 8:50 AM EDT Type 2 diabetes mellitus with other specified complication, without long-term current use of insulin (CMS/HCC) LIPID PANEL, STANDARD Routine 09/09/2023 8:42 AM EDT Type 2 diabetes mellitus with other specified complication, without long-term current use of insulin ([facility]/HCC) PROPHYLAXIS - ADULT Routine 05/27/2023 1 :00 [...] HM COLONOSCOPY Routine 03/03/2014 2:40 PM EST HEPATITIS C ANTIBODY Routine 09/15/2012 from Last 3 Months or Most Recently Relevant to Health Maintenance Results * XR Shoulder 2+ Views Right (05/20/2024 9:29 AM EDT) Only the most recent of2 resultswithin the time period is included. Anatomical Region Laterality Modality Upper Extremities, Shoulder Right Radi ographic Imaging 05/20/2024 9:29 AM EDT Narrative 05/20/2024 9:52 AM EDT ?[facility] ?[address] ?[place] [address] ?XRay Report ? Signed ? Patient: Azeb Kennedy ?MR#: [id number] ?? 4 ? : 1945 ?Acct:[id number] ? Age/Sex: 79 / F ?ADM Date: 05/20/24 ? Loc: HO.HHCX ? Attending Dr: Cleveland Ruvalcaba MD ? Ordering Physician: CLEVELAND RUVALCABA MD ?? Date of Service: 05/20/24 ?? Procedure(s): XR shoulder RT min 2V ?? Accession Number(s): [id number] ? cc: CLEVELAND RUVALCABA MD ? EXAMINATION: ??XR SHOULDER 2 OR MORE VIEWS RIGHT ? HISTORY: fell, injured right shoulder. ? COMPARISON: Comparison is made with the prior examination dated ?? 04/20/2024. ? FINDINGS: ? Three views of the left shoulder are submitted. ??Osseous mineralization ?? is normal. ??No acute fracture or dislocation is seen. ??There is mild ?? degenerative changes in the glenohumeral joint and severe ?? osteoarthritis of the AC joint. ??The soft tissues are unremarkable. ? XR/XR shoulder RT min 2V ?? IMPRESSION: ? Degenerative changes of the right shoulder as described. ? Electronically signed by: ??James Gonzalez MD ??05/20/2024 09:49 AM EDT ? Dictated By: ?James Gonzalez MD ? Signed By: ?<Electronically signed by James Gonzalez MD in OV> ?05/20/24 0949 ? DD/ 0929 ? TD/TT: 05/20/24 0940 ? Social Worker School: ? Procedure Note Mayrater, Image - 05/20/2024 [place] [address] XRay Report Signed Patient: Abraham Kennedy#: [id number] 4 : 8Acct:[id number] Age/Sex: 79 / FADM Date: 05/20/24 Loc: HO.HHCX Attending Dr: Cleveland Ruvalcaba MD Ordering Physician: CLEVELAND RUVALCABA MD Date of Service: 05/20/24 Procedure(s): XR shoulder RT min 2V Accession Number(s): [id number] cc: CLEVELAND RUVALCABA MD EXAMINATION: XR SHOULDER 2 OR MORE VIEWS RIGHT HISTORY: fell, injured right shoulder. COMPARISON: Comparison is made with the prior examination dated 04/20/2024. FINDINGS: Three views of the left shoulder are submitted. Osseous mineralization is normal. No acute fracture or dislocation is seen. There is mild degenerative changes in the glenohumeral joint and severe osteoarthritis of the AC joint. The soft tissues are unremarkable. XR/XR shoulder RT min 2V IMPRESSION: Degenerative changes of the right shoulder as described. Electronically signed by: James Gonzalez MD 05/20/2024 09:49 AM EDT Dictated By: James Gonzalez MD Signed By: <Electronically signed by James Gonzalez MD in OV> 05/20/24 0949 DD/ 0929 TD/TT: 05/20/24 0940 Social Worker School: us Cleveland Ruvalcaba MD IMG XR PROCEDURES Edited Result - Final * XR Hand 3+ Views Right (04/20/2024 9:42 AM EST) Anatomical Region Laterality Modality Upper Extremities, Hand Right Radiogra phic Imaging 04/20/2024 9:42 AM EST Narrative 04/20/2024 10:37 AM EST ?[facility] ?[address] ?[place] [address] ?XRay Report ? Signed ? Patient: Azeb Kennedy ?MR#: [id number] ?? 4 ? : 1945 ?Acct:[id number] ? Age/Sex: 79 / F ?ADM Date: 04/20/24 ? Loc: HO.HHCX ? Attending Dr: Tina Powell MD ? Ordering Physician: Tina Powell MD ?? Date of Service: 04/20/24 ?? Procedure(s): XR hand RT min 3V ?? Accession Number(s): [id number] ? cc: Tina Powell MD ? EXAMINATION: [...] DD/ 0942 ? TD/TT: 04/20/24 1000 ? Social Worker School: ? Procedure Note Donjezter, Image - 04/20/[address] [address] XRay Report Signed Patient: Abraham Kennedy#: [id number] 4 : 8Acct:[id number] Age/Sex: 79 / FADM Date: 04/20/24 Loc: .HHCX Attending Dr: Tina Powell MD Ordering Physician: Tina Powell MD Date of Service: 04/20/24 Procedure(s): XR hand RT min 3V Accession Number(s): [id number] cc: Tina Powell MD EXAMINATION: XR HAND [...] 04/20/24 1034 DD/ 0942 TD/TT: 04/20/24 1000 Social Worker School: us Tina Powell MD IMG XR PROCEDURES Final Result * XR Wrist 3+ Views Right (04/20/2024 9:41 AM EST) Anatomical Region Laterality Modality Upper Extremities, Wrist Right Radiogr aphic Imaging 04/20/2024 9:41 AM EST Narrative 04/20/2024 10:53 AM EST ?[facility] ?[address] ?[place] [address] ?XRay Report ? Signed ? Patient: Kennedy,Azeb ?MR#: [id number] ?? 4 ? : 1945 ?Acct:[id number] ? Age/Sex: 79 / F ?ADM Date: 04/20/24 ? Loc: HO.HHCX ? Attending Dr: Tina Powell MD ? Ordering Physician: Tina Powell MD ?? Date of Service: 04/20/24 ?? Procedure(s): XR wrist RT min 3V ?? Accession Number(s): [id number] ? cc: Tina Powell MD ? EXAMINATION: [...] DD/ 0941 ? TD/TT: 04/20/24 1000 ? Social Worker School: ? Procedure Note Zeeshan Petersen - 04/20/[address] [address] XRay Report Signed Patient: Abraham Kennedy#: [id number] 4 : 8Acct:[id number] Age/Sex: 79 / FADM Date: 04/20/24 Loc: HO.HHCX Attending Dr: Tina Powell MD Ordering Physician: Tina Powell MD Date of Service: 04/20/24 Procedure(s): XR wrist RT min 3V Accession Number(s): [id number] cc: Tina Powell MD EXAMINATION: XR WRIST, [...] 04/20/24 1049 DD/ 0941 TD/TT: 04/20/24 1000 Social Worker School: Tina Powell MD IMG XR PROCEDURES Final [...] Media Lot # [id number] Lot# Expiration Date [id number] Blood 03/17/2024 2:16 PM EST us Hill Dickson MD POINT OF CARE TEST ENTER/EDIT OR DERABLES Final Result * Albumin, Random Urine W/Creatinine (09/09/2023 8:50 AM EDT) Creatinine, Urine 75.51 mg/dL [facility] Microalbumin Urine 7.0 mg/L [facility] Microalbum Creatinine Ratio Ur 9.2 <30 ug/mg cr [facility] Comment:Albumin/Creatinine R atio Reference Ranges: Normal: < 30 ug/mg creatinine Microalbuminuria: 30 - 300 ug/mg creatinineClinical Albuminuria: > 300 ug/mg creatinine Urine (Urine, Random) 09/09/2023 8:50 AM EDT 09/09/2023 11:13 AM EDT us Hill Dickson MD LAB URINE ORDERABLES Final Resul t [facility] [address] [place] [phone] * (ABNORMAL) Lipid Panel, Standard (09/09/2023 [...] 190 mg/dL HDL Cholesterol 65 >40 mg/dL [facility] Comment:Desirable HDL: great er than 40 mg/dL Note: This HDL assay may give artificially low results in patients with liver disease. Blood Venous blood specimen / Unknown 09/09/2023 8:42 AM EDT 09/09/2023 11:04 AM EDT us Hill Dickson MD LAB BLOOD ORDERABLES Final Resul t [facility] [address] [place] [phone] * Diabetes Eye Exam (03/22/2023) Eye Exam Normal Normal, BIRADS 0 , BIRADS 1 , BIRADS 2, BIRADS 3 , BIRADS 4+ us Hill Dickson MD HEALTH MAINTENANCE Final Result * Colonoscopy (03/03/2014 2:40 PM EST) Colonoscopy Normal Normal Narrative LudaHafsa conroy - 03/03/2014 2:40 PM EST Recommended 10 year follow up us Santiago Edwards MD HEALTH MAINTENANCE Final Result * Hepatitis C Antibody (09/15/2012) Hepatitis C Antibody Nonreactive Blood us Hill Dickson MD HEALTH MAINTENANCE Final Result from Last 3 Months or Most Recently Relevant to Health Maintenance Insurance [facility] STANDARD [facility] Care Teams Industrial Gas Fitter Relationship Specialty Start Date End Date Name, MD Hill [address] [place] [address] PCP - General Family Medicine 03/15/15
--- OUTSIDE RECORDS SUMMARY | 2024-05-20 10:35 | XMS_ITS | Encounter Summary ---
Author Organization [employer] Address [address] [place] [address] Care Team Providers Care High Density Talc Coater Operator Name Role Phone Name, Hill HERNANDEZ Primary Care Provider [phone] Reason for Visit * Reason Comments Med Refill Encounter Details Date Type Department Care Team ([facility] st Contact Info) Description 05/06/2024 Refill [facility] [address] [place], [place] [phone] Name, MD Hill [address] [place] [address] Type 2 diabetes mellitus with other specified complication, without long-term current use of insulin ([facility]); Essential hypertension Social History Tobacco Use Types [...] EDT Office Visit [facility] [address] [place] [phone] Name, MD Hill [address] [place] [address] documented as of this encounter Visit Diagnoses Diagnosis Type 2 diabetes mellitus with other specified complication, without long-term current use of insulin ([facility]) Essential hypertension Unspecified essential hypertension documented in this encounter Additional Health Concerns Assessment Noted Time PHQ-9 Depression Total Score: 4 03/17/19 25 2:14 PM EST documented as of this encounter Care Teams High Density Talc Coater Operator Relationship Specialty Start Date End Date NameHill MD [address] [place] [phone] PCP - General Family Medicine 03/15/15 documented as of this encounter
--- OUTSIDE RECORDS SUMMARY | 2024-05-20 10:35 | XMS_ITS ---
Author Name Mckinley KINSEY MS. Virgie Olson Address [address] [place] [address] Phone [phone] [facility] Care Team Providers Care Toll Relief Operator Name Role Phone Ruth Sen Unavailable [phone] Reason for Referral Not Available Allergies, adverse [...] 2021-12-05 No Data Available OneTouch Delica Plus [id number] Miscellaneous TEST BLOOD SUGAR THREE TIMES DAILY [...] (do not use for phone, instead use 41048-20) [facility]2022 Type 2 diabetes mellitus wit h other specified complicationHyperlipidemia, unspecifiedEssential (primary) hypertensionMajor depressive disorder, recurrent, in remission, unspecifiedPersonal history of (healed) traumatic fracture New patient,40-59min; chronic exacerbation, 2 stable chronic or 1 acute illness add add modifier 95 for video (do not use for phone, instead use 12752-92) [facility] [place]2022 New patient,40-59min; chronic exacerbation, 2 stable chronic or 1 acute illness add add modifier 95 for video (do not use for phone, instead use 34030-26) [facility] [place]2022 New patient,40-59min; chronic exacerbation, 2 stable chronic or 1 acute illness add add modifier 95 for video (do not use for phone, instead use 87417-67) [facility] [place] 06[place]04/2022 New patient,40-59min; chronic exacerbation, 2 stable chronic or 1 acute illness add add modifier 95 for video (do not use for phone, instead use 21937-54) [facility] [place]2022 New patient,40-59min; chronic exacerbation, 2 stable chronic or 1 acute illness add add modifier 95 for video (do not use for phone, instead use 36332-78) [facility] [place]/2022 New patient,40-59min; chronic exacerbation, 2 stable chronic or 1 acute illness add add modifier 95 for video (do not use for phone, instead use 28058-81) [facility] [place] 06[place]04/2022 New patient,40-59min; chronic exacerbation, 2 stable chronic or 1 acute illness add add modifier 95 for video (do not use for phone, instead use 29171-42) [facility] [place] 06[place]04/2022 Vital Signs Date of Collection Vitals 2022-06-04 10:06:44 Height - 157.48 cmWe ight - 68.04 kgBody Mass Index (BMI) - 27.44 kg/m2 Social History Social History Social History Observation Description Effec tive Time Current Smoking Status Never smoker 2024-04-26 6 Sex Female History of Procedures Procedures Service Procedure code Service date Servicing provider Phone# New patient,40-59min; chronic exacerbation, 2 stable chronic or 1 acute illness add add modifier 95 for video (do not use for phone, instead use 98711-55) [id number] 2022-06-04 No Data Available No Data Availa [...] ilable Functional Status Functional Category Effective Dates CONDUIT MECHANIC assists with cooking, cl eaning and laundry. [...]
--- OUTSIDE RECORDS SUMMARY | 2024-05-20 10:35 | XMS_ITS | Clinical Summary ---
Author Organization [address] [place] [address] Address [address] [place] [address] Phone Care Team Providers Care Educational Guidance Counselor Name Role Phone Gina Fonseca MD Primary [...] PM EST Office Visit Orthopedic Surgery - [address] [address] Vicente Pearce, DPM Hallux rigidus [...] right leg BREAST REDUCTION 2009 Bilateral PROCEDURE: MI BREAST REDUCTION Medical History Medical History Date Comments Unspecified essential hypertension DX:Unspecified essential hypertension DM type 2 (diabetes mellitus , type 2) ([facility]) 12/24/2012 DX:DM type 2 (diabetes melli tus, type 2) ([facility]) Family History Medical History Relation Name Comments Cataracts Father Glaucoma Father Breast cancer Mother 75 Breast cancer Sister 1 70 Blindness Neg Hx Macular degeneration Neg Hx Strabismus Neg Hx Relation Name Status Comments Daughter Alive HTN Father SD and DM Mother 75 Breast cancer Sister [...] AM EDT Office Visit Orthopedic Surgery - [place] [address] [phone] Vicente Pearce, DPM [address] [address] Health Maintenance Due Date Last Done Comments [...] Result * (ABNORMAL) Hemoglobin A1c (04/04/2015) Pathologist [facility] Hemoglobin A1C 6.5(A) 4.0 - 6.0 % Blood Venous blood specimen / Unknown Result [facility] Provider LAB BLOOD ORDERABLES Lina l Result * (ABNORMAL) Lipid panel (04/04/2015) Pathologist [facility] LDL/HDL Ratio 4 0 - 4 Triglycerides 223(A) 0 - 150 mg/dL Cholesterol 194 0 - 200 mg/dL HDL 1(A) >=40 mg/dL LDL Cholesterol 96 0 - 100 mg/dL Blood Venous blood specimen / Unknown Result [facility] Provider LAB BLOOD ORDERABLES Lina l Result * Urine Albumin Creatinine Ratio (08/27/2014) [facility] Urine Albumin Creatinine Ratio abstracted Result [facility] Provider HEALTH MAINTENANCE Final Result * Hepatitis C Screening (09/15/2012) [facility] Hepatitis C Screening abstracted Result [facility] Provider HEALTH MAINTENANCE Final Result from Last 3 Months or Most Recently Relevant to Health Maintenance Insurance [facility] [employer] MEDICARE Member Subscriber Plan / Payer (Ef fective 2023-Present) Name:Azeb Kennedy Relation to Subscriber:Self Name:Azeb Kennedy Payer ID:[id number] Group ID:[id number] Type:Not on file Address: [place] [address] [address] [phone] Care Teams Educational Guidance Counselor Relationship Specialty Start Date End Date Gina Fonseca MD [address] [place], [place] PCP - General Internal Medicine 10/16/21
--- OUTSIDE RECORDS SUMMARY | 2024-05-20 10:35 | XMS_ITS | Encounter Summary ---
Author Organization [employer] Address [address] [facility] 7t [place] [address] Care Team Providers Care Gym Instructor Name Role Phone Name, Hill HERNANDEZ Primary Care Provider [phone] Encounter Details Date Type Department Care Team (Late st Contact Info) Description 02/01/2023 Telephone [facility] [address] [place], [place] [phone] Name, MD Hill [address] [place] [address] Social History Tobacco Use Types Packs/Day Years [...] Description 06/16/2024 1:45 PM EDT Office Visit [facility] [address] [place] [address] Name, MD Hill [address] [place] [address] documented as of this encounter Visit Diagnoses Not on filedocumented in this encounter Additional Health Concerns Assessment Noted Time PHQ-9 Depression Total Score: 19 023 1:35 PM EDT documented as of this encounter Care Teams Gym Instructor Relationship Specialty Start Date End Date NameHill MD [address] [place] [id number] PCP - General Family Medicine 03/15/15 documented as of this encounter
--- OUTSIDE RECORDS SUMMARY | 2024-05-20 10:35 | XMS_ITS | Encounter Summary ---
Author Organization [employer] Address [address] [facility] 7t [place] [address] Care Team Providers Care Telephone Station Installer Name Role Phone Name, Hill HERNANDEZ Primary Care Provider [phone] Encounter Details Date Type Department Care Team (Latest Contact Info) Description 07/26/2021 Abstract [facility] CONVERSIONS Dental, Provider, DDS Social [...] Description 06/16/2024 1:45 PM EDT Office Visit [facility] [address] [place] [address] Name, MD Hill [address] [place] [address] documented as of this encounter Visit Diagnoses Not on filedocumented in this encounter Care Teams Telephone Station Installer Relationship Specialty Start Date End Date Name, MD Hill [address] [place] [address] PCP - General Family Medicine 03/15/15 documented as of this encounter
--- OUTSIDE RECORDS SUMMARY | 2024-05-20 10:35 | XMS_ITS | Encounter Summary ---
Author Organization [employer] Address [address] [facility] 7t [place] [address] Care Team Providers Care Deployment Manager Name Role Phone Name, Hill HERNANDEZ Primary Care Provider [phone] Reason for Referral * Consultation (Urgent) - Pending Review Specialty Diagnoses / Procedures Referred By Molly mclain Referred To Contact Orthopaedic Surgery Diagnoses Acute pain of right shoulder Shoulder injury, right, initial encounter Cleveland Ruvalcaba MD [address] [place] [address] Phone: tel: fax: Referral ID Status Reason Start Date Expiration Date Visits Requested Visits Authorized [id number] Pending Review Specialty Services Required 05/20/2024 05/20/2025 1 1 Reason for Visit * Reason Comments Fall Arm Pain Encounter Details Date Type Department Care Team ([facility] st Contact Info) Description 05/20/2024 9:00 AM EDT Office Visit [facility] [address] [place] [address] [phone] Acute pain of right shoulder (Primary Dx); Shoulder injury, right, initial encounter; Abrasion of right knee, initial encounter; Hypertension, unspecified type Social History Tobacco Use Types Packs/Day Years [...] your housing situation today? I have richy sing 03/17/[address] you li [...] oz) 05/20/2024 8:48 A M EDT Height - - Body Mass Index 30.11 04/20/2024 8:50 AM EST documented in this encounter Plan of Treatment Upcoming Encounters Date Type Department Care Team (Late st Contact Info) Description 06/16/2024 1:45 PM EDT Office Visit [facility] [address] [place] [address] Name, MD Hill [address] [facility] [place] [address] Scheduled Referrals Name Type Priority Associated Diagnoses Order Schedule Referral to Orthopaedic Surgery Outpatient Referral Urgent Acute pain of right shoulder Shoulder injury, right, initial encounter Expected: 05/20/2024 (Approximate), Expires: 05/20/2025 documented as of this encounter Procedures Procedure Name Priority Date/Time Associated Diagnosis Comments XR SHOULDER 2+ VIEWS RIGHT Routine 05/20/2024 9:29 AM EDT Shoulder injury, right, initial encounter documented in this encounter Results * XR Shoulder 2+ Views Right (05/20/2024 9:29 AM EDT) Anatomical Region Laterality Modality Upper Extremities, Shoulder Right Radi ographic Imaging 05/20/2024 9:29 AM EDT Narrative 05/20/2024 9:52 AM EDT ?[facility] ?[address] [facility] [place]. ?[place] [address] ?XRay Report ? Signed ? Patient: Aezb Kennedy ?MR#: [id number] ?? 4 ? : 1945 ?Acct:[id number] ? Age/Sex: 79 / F ?ADM Date: 05/20/24 ? Loc: [facility]X ? Attending Dr: Cleveland Ruvalcaba MD ? Ordering Physician: CLEVELAND RUVALCABA MD ?? Date of Service: 05/20/24 ?? Procedure(s): XR shoulder RT min 2V ?? Accession Number(s): [id number] ? cc: CLEVELAND RUVALCABA MD ? EXAMINATION: [...] MD in OV> ?05/20/24 0949 ? DD/ 8 ? TD/TT: 05/20/24939 ? Center Consultant: ? Procedure Note Donjezter, Image - 05/20/[address] [address] XRay Report Signed Patient: Abraham Kennedy#: [id number] 4 : 8Acct:[id number] Age/Sex: 79 / FADM Date: 05/20/24 [facility]: Cleveland Ruvalcaba MD Ordering Physician: CLEVELAND RUVALCABA MD Date of Service: 05/20/24 Procedure(s): XR shoulder RT min 2V Accession Number(s): [id number] cc: CLEVELAND RUVALCABA MD EXAMINATION: XR SHOULDER [...] signed by James Gonzalez MD in OV> 05/20/24948 DD/ 8 TD/TT: 05/20/24939 Center Consultant: Cleveland Ruvalcaba MD IMG XR PROCEDURES Edited Result - Final documented in this encounter Visit Diagnoses Diagnosis Acute pain of right shoulder- Primary Shoulder injury, right, initial encounter Abrasion of right knee, initial encounter Hypertension, unspecified type documented in this encounter Additional Health Concerns Assessment Noted Time PHQ-9 Depression Total Score: 4 03/17/19 25 2:14 PM EST documented as of this encounter Care Teams Deployment Manager Relationship Specialty Start Date End Date Name, MD Hill [address] [place] [address] PCP - General Family Medicine 03/15/15 documented as of this encounter
--- OUTSIDE RECORDS SUMMARY | 2024-05-20 10:35 | XMS_ITS | Encounter Summary ---
Author Organization [employer] Address [address] [facility] 7t [place] [address] Care Team Providers Care Test Fixture Assembler Name Role Phone Name, Hill HERNANDEZ Primary Care Provider Encounter Details Date Type Department Care Team (Latest Contact Info) Description 04/15/2018 Abstract [facility] CONVERSIONS Dental, Provider, DDS Social History [...] Description 06/16/2024 1:45 PM EDT Office Visit [facility] MED[facility] [address] [place] [address] Name, MD Hill [address] [place] [address] documented as of this encounter Visit Diagnoses Not on filedocumented in this encounter Care Teams Test Fixture Assembler Relationship Specialty Start Date End Date Name, MD Hill [address] [place] [address] PCP - General Family Medicine 03/15/15 documented as of this encounter
--- OUTSIDE RECORDS SUMMARY | 2024-05-20 10:36 | XMS_ITS | Encounter Summary ---
Author Organization [employer] Address [address] [facility] 7t [place] [address] Care Team Providers Care Strip Tank Tender Name Role Phone Name, Hill HERNANDEZ Primary Care Provider [phone] Reason for Visit * Reason Onset Date Comments Pre-op Visit 04/25/2023 Encounter Details Date Type Department Care Team ([facility] st Contact Info) Description 04/25/2023 Telephone [facility] [address] [place], [place] [phone] Name, MD Hill [address] [place] [address] Pre-op Visit Social History Tobacco Use Types [...] Lab needed: No EKG: No Surgeon's name: [facility] name: [facility]geon's office number: [phone] Surgeon's office fax number: [phone] Contact name (person you spoke with): Patricia Last office note from surgeon requested documented in this encounter Plan of Treatment Upcoming Encounters Date Type Department Care Team (Late st Contact Info) Description 06/16/2024 1:45 PM EDT Office Visit [facility] [address] [place] [address] Name, MD Hill [address] [place] [address] documented as of this encounter Visit Diagnoses Not on filedocumented in this encounter Additional Health Concerns Assessment Noted Time PHQ-9 Depression Total Score: 0 03/07/19 24 8:57 AM EST documented as of this encounter Care Teams Strip Tank Tender Relationship Specialty Start Date End Date Name, MD Hill [address] [place] [address] PCP - General Family Medicine 03/15/15 documented as of this encounter
--- OUTSIDE RECORDS SUMMARY | 2024-05-20 10:36 | XMS_ITS | Encounter Summary ---
Author Organization [employer] Address [address] [facility] 7t [place] [address] Care Team Providers Care Rural Carrier Name Role Phone Name, Hill HERNANDEZ Primary Care Provider [phone] Reason for Visit * Reason Onset Date Comments FYI 05/07/2023 Encounter Details Date Type Department Care Team ([facility] st Contact Info) Description 05/07/2023 Telephone [facility]INE [address] [place], [place] [phone] Name, MD Hill [address] [place] [address] FYI Social History Tobacco Use Types Packs/Day [...] blood pressure and Charla rojas advised by headline writer that pt was seen yesterday and have an appt on . Any questions to Dennise [phone] documented in this encounter Plan of Treatment Upcoming Encounters Date Type Department Care Team (Late st Contact Info) Description 06/16/2024 1:45 PM EDT Office Visit [facility] [address] [place] [phone] Name, MD Hill [address] [place] [address] documented as of this encounter Visit Diagnoses Not on filedocumented in this encounter Additional Health Concerns Assessment Noted Time PHQ-9 Depression Total Score: 0 03/07/19 24 8:57 AM EST documented as of this encounter Care Teams Rural Carrier Relationship Specialty Start Date End Date Name, MD Hill [address] [place] [address] PCP - General Family Medicine 03/15/15 documented as of this encounter
== END 2024-05-20 09:29 | disposition home or self-care (01) ==
LOC: HO.HHCX 09:28
PROVIDERS: Visit Provider Emergency Medicine
DX: S49.91XA Unspecified injury of right shoulder and upper arm, initial encounter (principal)
CPT/HCPCS: 73030

== ENCOUNTER → 2024-05-20 09:29 | Outpatient (BNV) | payer OTHER, SELFPAY | PROVIDERS: Visit Provider Radiology Diagnostic Radiology | DX: M25.511 Pain in right shoulder (principal) | CPT/HCPCS: 73030 ==

== ENCOUNTER 2024-06-01 08:36 | Emergency (ER) | payer OTHER, SELFPAY ==
--- NOTE | ~2024-06-01 | CT_ITS ---
EXAMINATION: CT CHEST WITH CONTRAST CLINICAL INFORMATION: Flank pain, bruising secondary to multiple falls. COMPARISON: None available. TECHNIQUE: Multidetector volumetric CT imaging of the chest was obtained after the administration of 85 mL of Omnipaque 350 intravenous contrast without immediate adverse reactions. Axial MIP volume rendering provided. Sagittal and coronal reformatted images were obtained. This CT examination was performed using dose optimization techniques as appropriate, variously including the following: *Automated exposure control *Adjustment of mA and/or kV according to patient size (this includes techniques or standardized protocols for targeted exams where dose is matched to indication/reason for exam; i.e. extremities or head) *Use of iterative reconstruction technique FINDINGS: LUNGS: Mild gravity dependent atelectatic changes. No consolidations or abnormal opacities. No pneumothorax or pleural effusion. Small airways appear normal. Central airways are patent. MEDIASTINUM: Thyroid demonstrates a 7 mm left inferior nodule. No follow-up recommended. There is no adenopathy or mass. Aorta is normal in caliber with minimal atheromatous calcification. No aneurysm. Main pulmonary artery is normal in caliber. Top normal cardiac size. No pericardial effusion. No esophageal abnormality identified. PLEURA: There is no pleural effusion. No pleural mass or thickening. AXILLA: No lymphadenopathy. UPPER ABDOMEN: Refer to the dedicated CT abdomen and pelvis performed concurrently. OSSEOUS STRUCTURES: Nondisplaced fracture through the left lateral 10th rib. No suspicious lytic or blastic bone lesions. Moderate degenerative changes in the sternoclavicular joints, shoulder joints, and throughout the spine. CT/CT chest w IV con IMPRESSION: 1. Acute nondisplaced fracture through the left lateral 10th rib. 2. The lungs are clear. 3. Ancillary findings as discussed in the body of the report. Electronically signed by: Indra Carter MD 06/01/2024 11:09 AM EDT
--- NOTE | ~2024-06-01 | CT_ITS ---
EXAMINATION: CT ABDOMEN AND PELVIS WITH CONTRAST CLINICAL INFORMATION: Flank pain, bruising secondary to multiple falls. COMPARISON: 09/12/2015. CT chest performed concurrently. TECHNIQUE: Multidetector volumetric images were obtained from the superior aspect of the liver through the pubic symphysis following administration 85 mL of Omnipaque 350 intravenous contrast. Sagittal and coronal reformatted images were obtained on the technologist's workstation. Oral contrast: No This CT examination was performed using dose optimization techniques as appropriate, variously including the following: *Automated exposure control *Adjustment of mA and/or kV according to patient size (this includes techniques or standardized protocols for targeted exams where dose is matched to indication/reason for exam; i.e. extremities or head) *Use of iterative reconstruction technique FINDINGS: LUNG BASES: Refer to the dedicated chest CT. LIVER, GALLBLADDER, AND BILIARY TREE: The liver demonstrates mild diffuse fatty infiltration. It is normal in size and contour. No focal hepatic lesion or biliary ductal dilatation is present. The gallbladder is surgically absent. PANCREAS: Mild atrophy. No lesions. SPLEEN: Unremarkable. ADRENAL GLANDS: Unremarkable. KIDNEYS AND URETERS: The kidneys are normal in size, shape, and attenuation. No hydronephrosis, hydroureter, or calculi seen. No perinephric stranding. BLADDER: Unremarkable. GASTROINTESTINAL TRACT: The stomach is somewhat decompressed but normal in contour. Normal duodenum. Small bowel is normal in caliber and course. No wall thickening or inflammation. There are no CT features of appendicitis. Appendix itself is not visualized. Colon is normal in course and caliber without inflammation or wall thickening. No rectal abnormality. ABDOMINAL WALL: No significant hernia is appreciated. LYMPH NODES: Normal. VASCULAR: Mild atheromatous calcification, tortuosity, and mild ectasia of the aorta without aneurysm. PELVIC VISCERA: Hysterectomy. No adnexal masses. OSSEOUS STRUCTURES: No suspicious lytic or blastic bone lesion. Degenerative changes throughout the imaged spine. Aside from left lateral 10th rib fracture, no additional fractures seen. CT/CT abdomen pelvis w IV con IMPRESSION: 1. No acute findings in the abdomen or pelvis. 2. Diffuse fatty infiltration of the liver. Cholecystectomy. 3. Mild atheromatous calcification, tortuosity, and mild ectasia of the aorta without aneurysm. 4. Left lateral 10th rib fracture. No additional fractures seen. Electronically signed by: Indra Carter MD 06/01/2024 11:21 AM EDT RP
[2024-06-01 08:41] VITALS: BP 162/84; PULSE 73; O2SAT 95
[2024-06-01 08:55] VITALS: BP 153/79; PULSE 66; RESP 16; TEMP 37; O2SAT 93; BMI 32.2
--- NOTE | 2024-06-01 09:02 | ED_ITS ---
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 Patient states that she has been having more frequent falls lately due to poor balance. Patient states that she is supposed to be using a walker but she does not currently have one. Patient states that she has not hit her head with any of these falls. Patient states that she had her right shoulder examined before and her x-rays were negative. Patient states that her most recent fall a few days ago caused left sided chest and flank pain. Patient states that she lives alone. Patient denies any dizziness, lightheadedness, abdominal pain, nausea, vomiting, fever, chills, blurry vision, double vision, loss of vision, chest pain, difficulty breathing, shortness of breath, back pain, night sweats, pain with urination, increased urinary frequency, increased urinary urgency, blood in her urine or stool, syncope or a near syncopal episode, bowel incontinence, bladder incontinence, or any other complaints at this time. Onset (ago): day(s) Location: left (flank / chest) and right (shoulder) Relieving factors: none Exacerbating factors: none Associated symptoms: denies other symptoms Treatments prior to arrival: none Related Data Home Medications ?Medication ?Instructions ?Recorded ?Confirmed lisinopril 2.5 mg tablet 2.5 mg PO DAILY 05/25/20 06/01/24 melatonin 5 mg tablet 5 mg PO BEDTIME 05/25/20 06/01/24 pravastatin 10 mg tablet 10 mg PO DAILY 05/25/20 06/01/24 amitriptyline 50 mg tablet 50 mg PO BEDTIME 06/01/24 06/01/24 magnesium oxide 400 mg PO DAILY 06/01/24 06/01/24 meloxicam 15 mg tablet 15 mg PO DAILY PRN Pain 06/01/24 06/01/24 metformin 850 mg tablet 850 mg PO BID 06/01/24 06/01/24 omeprazole 20 mg capsule,delayed 20 mg PO DAILY@0630 06/01/24 06/01/24 release Allergies Allergy/AdvReac Type Severity Reaction Status Date / Time No Known Allergies Allergy Verified 06/01/24 09:04 Review of Systems 2 Constitutional: Constitutional: Reports no additional constitutional complaints, Denies chills, Denies fever(s) and Denies night sweats Eyes: Eyes: Reports no additional eye complaints, Denies blurry vision, Denies change in vision, Denies diplopia, Denies eye discharge, Denies loss of vision and Denies eye pain ENT: Denies dizziness Cardiovascular: Cardiovascular: Reports no additional cardiovascular complaints, Reports chest pain (left sided chest wall pain post fall), Denies lightheadedness, Denies Loss of Consciousness and Denies dyspnea Respiratory: Respiratory: Reports no additional respiratory complaints and Denies dyspnea Gastrointestinal: Gastrointestinal: Reports no additional gastrointestinal complaints, Denies abdominal pain, Denies melena, Denies hematochezia, Denies change in bowel habits and Denies change in stool character Comments: left sided flank and Genitourinary: Genitourinary: Denies hematuria, Denies urinary frequency, Denies dysuria, Denies urinary incontinence, Denies urinary hesitancy and Denies urinary urgency Musculoskeletal: Musculoskeletal: Reports no additional musculoskeletal complaints, Denies numbness and Denies tingling Comments: right shoulder pain Neurologic: Denies dizziness, Denies loss of vision, Denies numbness and Denies tingling Psychiatric: Psychiatric: Reports no additional psychiatric complaints Endocrine: Endocrine: Reports no additional endocrine complaints Hematologic/Lymphatic: Hematologic/Lymphatic: Reports no additional hematologic/lymphatic complaints Allergic/Immunologic: Allergic/Immunologic: Reports no additional allergic/immunologic complaints PMF Past Medical History Attestation statement: The following information was validated with the patient. Source: old records reviewed and nursing notes reviewed Medical History Sacroiliac joint dysfunction Sacroiliitis Low back pain Primary osteoarthritis of knees, bilateral HTN (hypertension) Diabetes Arthritis Surgical History History of hysterectomy History of cholecystectomy Social History Social History Alcohol intake: never Advance Directives: No Advance Directives Information Provided: Yes Do you have a plan to hurt others: No Plan Physical Exam ED Vital Signs: Vital Signs - 24 hr 06/01/24 16:51 06/01/24 19:11 06/01/24 20:04 Temperature 97.1 F 97.3 F Pulse Rate 65 81 Respiratory Rate 14 16 Blood Pressure 158/85 H 169/76 H 169/76 H Pulse Oximetry 94 93 Oxygen Delivery Method Room Air Room Air 06/02/24 05:16 06/02/24 08:38 06/02/24 08:39 Temperature 97.9 F 98 F Pulse Rate 58 61 Respiratory Rate 16 19 Blood Pressure 119/63 132/68 132/68 Pulse Oximetry 94 94 Oxygen Delivery Method Room Air BMI result Body Mass Index 32.2 Const General: cooperative, no acute distress, alert and awake Nutritional Appearance: well nourished Orientation/consciousness: patient oriented x3 Limitations: no limitations HENMT Head: Yes normal to inspection and Yes atraumatic Ears: hearing grossly normal bilaterally and external ears normal General nose exam: Normal external nose present, no nasal discharge noted and no epistaxis Face and sinus: Yes normal facial exam, No abrasion and No laceration Mouth: Normal oral and palatal mucosa present, no drooling and no muffled voice Eyes General: appearance normal, both eyes and all related structures Periorbital: periorbital findings normal Eyelids: Yes eyelids normal Conjunctivae: conjunctivae normal Pupils: Equal, round and reactive pupils present EOM: EOMs intact bilaterally Neck Neck: Yes normal visual inspection, Yes full ROM and Yes no lymphadenopathy Chest Chest palpation & inspection: normal inspection of the chest Resp Effort & Inspection: normal respiratory effort and able to speak in complete sentences GI Abdomen image: 2 1. dark colored bruising present - small overall area Neuro General: patient oriented x3, moves all extremities and CN's II-XI intact bilaterally Cranial nerves: Yes Equal, round and reactive pupils present Cognition (Neuro): normal cognition Extrem General: Yes normal to inspection, Yes full ROM and Yes capillary refill normal Psych Appearance: grossly normal Mental Status: mental status grossly normal Affect: normal affect Attitude: cooperative Thought process: Normal thought process present Thought content: Normal thought content present Insight: Good insight present (Psych) Course Reevaluation(s) Reevaluation #1: physician observation discontinued at this time. stable for discharge to [facility] for her recurrent falls and rib fx. VS stable. does not require medical admission. Time: 13:40 Medications Administered Generic Name Dose Route Start Last Admin Trade Name Renetta PRN Reason Stop Dose Admin Lisinopril 2.5 mg 06/01/24 19:30 06/02/24 08:38 Lisinopril 2.5 Mg Tablet PO 2.5 mg DAILY JUDE Administration Protocol Magnesium Oxide 400 mg 06/01/24 19:30 06/02/24 08:38 Magnesium Oxide 400 Mg Tablet PO 400 mg DAILY JUDE Administration Melatonin 6 mg 06/01/24 21:00 06/01/24 20:04 Melatonin 3 Mg Tablet PO 6 mg BEDTIME JUDE Administration Metformin HCl 850 mg 06/02/24 08:00 06/02/24 07:38 Metformin Hcl 850 Mg Tablet PO 850 mg BIDWM JUDE Administration Naproxen 500 mg 06/01/24 19:38 06/01/24 20:51 Naproxen 500 Mg Tablet PO 500 mg BID PRN Administration Pain, Moderate(Pain Scale 4-6) Omeprazole 20 mg 06/02/24 06:30 06/02/24 06:33 Omeprazole 20 Mg Capsule.Dr PO 20 mg DAILY@0630 JUDE Administration Pravastatin Sodium 10 mg 06/01/24 19:30 06/02/24 08:38 Pravastatin Sodium 10 Mg Tablet PO 10 mg DAILY JUDE Administration Discontinued Medications Generic Name Dose Route Start Last Admin Trade Name Renetta PRN Reason Stop Dose Admin Cyclobenzaprine HCl 5 mg 06/01/24 13:48 06/01/24 14:26 Cyclobenzaprine Hcl 5 Mg Tablet PO 06/01/24 13:49 5 mg ONCE ONE Administration Iohexol 100 ml 06/01/24 10:55 06/01/24 10:56 Iohexol 350 Mg/Ml 100 Ml Infus..Btl IV 06/01/24 10:56 85 ml ONCE ONE Administration Morphine Sulfate 4 mg 06/01/24 09:12 06/01/24 09:38 Morphine Sulfate 4 Mg/Ml Cartridge IVPUSH 06/01/24 09:13 4 mg ONCE ONE Administration Protocol Ondansetron HCl 4 mg 06/01/24 09:12 06/01/24 09:38 Ondansetron Hcl 4 Mg/2 Ml Vial IVPUSH 06/01/24 09:13 4 mg ONCE ONE Administration Medical Decision Making Medical Decision Making [facility] Narrative: Patient is a 79 year old assigned female at with a history of OA, HTN, and DM presenting to the emergency department today with continued right shoulder pain and left flank pain after a fall. Patient's physical exam was as noted in the physical exam portion of this note. Patient's blood work was unremarkable. Patient's EKG was unremarkable. Patient's CT abd/pelvis and chest showed a left 10th rib fracture but was otherwise unremarkable. Patient's clinical presentation is most consistent with gait instability, left 10th rib fracture, and right rotator cuff dysfunction. I explained my physical exam findings as well as all test results to the patient. I answered all questions asked by the patient. Patient received IV morphine which, upon re-evaluation, she stated it helped her symptoms significantly. Given the patient's frequent falls and living alone - will have patient evaluated by physical therapy and case management. Patient placed in observation pending disposition. Incentive spirometry ordered given the patient's rib fracture. Differential Diagnosis Differential Diagnoses: The differential diagnosis associated with the presentation includes Rib fracture Rib contusion Fall Frequent falls Admission/Observation Consideration of admission/observation: Escalation of care including admission/observation considered Patient's disposition will be determined after physical therapy and case management evaluations. Lab Data [facility] Lab Attestation statement: I reviewed the patient's lab results. My interpretation of these results are in the MDM Rationale portion of this note. 06/01/24 09:33 06/01/24 09:33 Labs: Lab Results 06/01/24 06/01/24 Range/Units 09:33 20:32 WBC 5.5 (4.8-10.8) X10*3/uL RBC 4.24 (4.20-5.50) X10*6/uL Hgb 13.1 (12.0-16.0) g/dl Hct 40.2 (37.0-47.0) % MCV 94.8 (80.0-98.0) fL MCH 30.9 (27.0-33.0) pg MCHC 32.6 (31.0-35.0) g/dl RDW 13.4 (11.0-16.0) % Plt Count 187 (160-400) X10*3/uL MPV 10.5 (9.4-12.3) fL Immature Gran % (Auto) 0.4 (0.0-0.4) % Neut % (Auto) 64.2 (45-73) % Lymph % (Auto) 23.6 (20-40) % Arthur % (Auto) 9.8 (2-11) % Eos % (Auto) 1.5 (0-4) % Baso % (Auto) 0.5 (0-2) % Lymph # (Auto) 1.3 (1.2-4.9) X10*3/uL Arthur # (Auto) 0.5 (0.1-1.2) X10*3/uL Eos # (Auto) 0.1 (0.0-0.4) X10*3/uL Baso # (Auto) 0.0 (0.0-0.2) X10*3/uL Abs Immat Gran (auto) 0.02 (0.00-0.03) X10*3/uL Absolute Neuts (auto) 3.5 (2.0-8.3) x10*3/uL Absolute Nucleated RBC 0.000 (0.0-0.012) X10*3/uL Nucleated RBC % (auto) 0.0 (0.0-0.2) /100WBC PT 11.9 (10.9-12.4) SEC INR 1.0 (0.9-1.1) Sodium 138 (135-145) mmol/L Potassium 4.6 (3.3-5.1) mmol/L Chloride 106 (96-108) mmol/L Carbon Dioxide 24 (22-29) mmol/L Anion Gap 13 (12-20) BUN 19 H (9-16) mg/dL Creatinine 0.81 (0.5-1.4) mg/dL Estim Creat Clear Calc 52.5 Estimated GFR > 60 Random Glucose 113 (60-115) mg/dL Calcium 9.2 (8.4-10.2) mg/dL Magnesium 1.9 (1.6-2.6) mg/dL Total Bilirubin 0.4 (0.0-1.0) mg/dL AST 33 H (5-31) U/L ALT 26 (0-31) U/L Alkaline Phosphatase 83 (39-117) U/L Troponin I High Sens < 2.7 (<3.5-17.0) ng/L Total Protein 7.2 (6.5-8.0) g/dL Albumin 4.1 (3.5-5.0) g/dL Urine Color Yellow Urine Appearance Clear Urine pH 6.5 (5.0-9.0) Ur Specific Felt >= 1.030 H (1.005-1.025) Urine Protein Negative (Neg-Trace) mg/dL Urine Glucose (UA) Negative (Negative) mg/dL Urine Ketones Negative (Negative) mg/dL Urine Blood Negative (Negative) Urine Nitrite Negative (Negative) Ur Leukocyte Esterase Large (3+) H (Negative) Urine RBC 0-2 (0-2) /HPF Urine WBC 6-10 H (0-5) /HPF Ur Squamous Epith Cells 0-2 (0-2) /HPF Urine Bacteria None Seen (None Seen) Hyaline Casts 0-2 (0-2) /LPF Influenza Type A (PCR) NEGATIVE (Negative) Influenza Type B (PCR) NEGATIVE (Negative) RSV RNA Qual (PCR) NEGATIVE (Negative) SARS-CoV-2 RNA (RT-PCR) NEGATIVE (Negative) Independent Interpretation I performed an independent interpretation of an: EKG and CT Scan Interpretation: My interpretation is in agreement with the radiologist's impression of these imaging studies. L Report Number: [id number]: Total DLP = 0.00 mGy-cm EXAMINATION: CT CHEST WITH CONTRAST CLINICAL INFORMATION: Flank pain, bruising secondary to multiple falls. COMPARISON: None available. TECHNIQUE: Multidetector volumetric CT imaging of the chest was obtained after the administration of 85 mL of Omnipaque 350 intravenous contrast without immediate adverse reactions. Axial MIP volume rendering provided. Sagittal and coronal reformatted images were obtained. This CT examination was performed using dose optimization techniques as appropriate, variously including the following: *Automated exposure control *Adjustment of mA and/or kV according to patient size (this includes techniques or standardized protocols for targeted exams where dose is matched to indication/reason for exam; i.e. extremities or head) *Use of iterative reconstruction technique FINDINGS: LUNGS: Mild gravity dependent atelectatic changes. No consolidations or abnormal opacities. No pneumothorax or pleural effusion. Small airways appear normal. Central airways are patent. MEDIASTINUM: Thyroid demonstrates a 7 mm left inferior nodule. No follow-up recommended. There is no adenopathy or mass. Aorta is normal in caliber with minimal atheromatous calcification. No aneurysm. Main pulmonary artery is normal in caliber. Top normal cardiac size. No pericardial effusion. No esophageal abnormality identified. PLEURA: There is no pleural effusion. No pleural mass or thickening. AXILLA: No lymphadenopathy. UPPER ABDOMEN: Refer to the dedicated CT abdomen and pelvis performed concurrently. OSSEOUS STRUCTURES: Nondisplaced fracture through the left lateral 10th rib. No suspicious lytic or blastic bone lesions. Moderate degenerative changes in the sternoclavicular joints, shoulder joints, and throughout the spine. CT/CT chest w IV con IMPRESSION: 1. Acute nondisplaced fracture through the left lateral 10th rib. 2. The lungs are clear. 3. Ancillary findings as discussed in the body of the report. Electronically signed by: Indra Carter MD 06/01/2024 11:09 AM EDT Dictated By: Indra Carter MD Signed By: Electronically signed by Indra Carter MD 06/01/24 1109 Report Number: [id number]: Total DLP = 830.00 mGy-cm EXAMINATION: CT ABDOMEN AND PELVIS WITH CONTRAST CLINICAL INFORMATION: Flank pain, bruising secondary to multiple falls. COMPARISON: 09/12/2015. CT chest performed concurrently. TECHNIQUE: Multidetector volumetric images were obtained from the superior aspect of the liver through the pubic symphysis following administration 85 mL of Omnipaque 350 intravenous contrast. Sagittal and coronal reformatted images were obtained on the technologist's workstation. Oral contrast: No This CT examination was performed using dose optimization techniques as appropriate, variously including the following: *Automated exposure control *Adjustment of mA and/or kV according to patient size (this includes techniques or standardized protocols for targeted exams where dose is matched to indication/reason for exam; i.e. extremities or head) *Use of iterative reconstruction technique FINDINGS: LUNG BASES: Refer to the dedicated chest CT. LIVER, GALLBLADDER, AND BILIARY TREE: The liver demonstrates mild diffuse fatty infiltration. It is normal in size and contour. No focal hepatic lesion or biliary ductal dilatation is present. The gallbladder is surgically absent. PANCREAS: Mild atrophy. No lesions. SPLEEN: Unremarkable. ADRENAL GLANDS: Unremarkable. KIDNEYS AND URETERS: The kidneys are normal in size, shape, and attenuation. No hydronephrosis, hydroureter, or calculi seen. No perinephric stranding. BLADDER: Unremarkable. GASTROINTESTINAL TRACT: The stomach is somewhat decompressed but normal in contour. Normal duodenum. Small bowel is normal in caliber and course. No wall thickening or inflammation. There are no CT features of appendicitis. Appendix itself is not visualized. Colon is normal in course and caliber without inflammation or wall thickening. No rectal abnormality. ABDOMINAL WALL: No significant hernia is appreciated. LYMPH NODES: Normal. VASCULAR: Mild atheromatous calcification, tortuosity, and mild ectasia of the aorta without aneurysm. PELVIC VISCERA: Hysterectomy. No adnexal masses. OSSEOUS STRUCTURES: No suspicious lytic or blastic bone lesion. Degenerative changes throughout the imaged spine. Aside from left lateral 10th rib fracture, no additional fractures seen. CT/CT abdomen pelvis w IV con IMPRESSION: 1. No acute findings in the abdomen or pelvis. 2. Diffuse fatty infiltration of the liver. Cholecystectomy. 3. Mild atheromatous calcification, tortuosity, and mild ectasia of the aorta without aneurysm. 4. Left lateral 10th rib fracture. No additional fractures seen. Electronically signed by: Indra Carter MD 06/01/2024 11:21 AM EDT Dictated By: Indra Carter MD Signed By: Electronically signed by Indra Carter MD 06/01/24 1121 I independently interpreted this EKG and am in agreement with the below findings: Vent. Rate: 66 BPM Atrial Rate: 66 BPM P-R Int: 190 ms QRS Dur: 84 ms QT Int: 392 ms P-R-T Axes: 49 -13 33 degrees QTcB Int: 410 ms Normal sinus rhythm Moderate voltage criteria for LVH, may be normal variant (R in aVL, [place] product) Nonspecific T wave abnormality When compared with ECG of 12-Sep-2015 16:15, T wave inversion now evident in Lateral leads DD/ [id number] Radiology Impression Discussion of test interpretation with radiology: I have reviewed the radiologist's reading. Independent Historian Clinical information obtained from an independent historian. History obtained from or confirmed by: EMS (EMS provided additional history and confirmed the history provided by the patient.) Discharge Plan Discharge Clinical Impression: Fracture of rib, Falls Patient Disposition: Xfer Inpatient Rehab Fac Transfer Details: [facility] Instructions: Rib Fracture (ED) Additional Instructions: take tylenol for pain in the ribs. it is important to do lung exercises multiple times per day, including big deep breaths to keep the lungs expanded and prevent pneumonia follow up with your doctor If you develop new or worsening symptoms call 911 or come back to the ER for further evaluation. CT/CT chest w IV con IMPRESSION: 1. Acute nondisplaced fracture through the left lateral 10th rib. 2. The lungs are clear. 3. Ancillary findings as discussed in the body of the report. Prescriptions: No Action meloxicam 15 mg tablet 15 mg PO DAILY PRN (Reason: Pain) metformin 850 mg tablet 850 mg PO BID amitriptyline 50 mg tablet 50 mg PO BEDTIME omeprazole 20 mg capsule,delayed release(DR/EC) 20 mg PO DAILY@0630 magnesium oxide 400 mg magnesium Tablet 400 mg PO DAILY melatonin 5 mg tablet 5 mg PO BEDTIME pravastatin 10 mg tablet 10 mg PO DAILY lisinopril 2.5 mg tablet 2.5 mg PO DAILY Referrals: [facility] [Outside] Print Language: Singaporean
--- NOTE | 2024-06-01 09:12 | ECG_ITS ---
Test Reason : WEAKNESS,FREQUENT FALS Blood Pressure : */* mmHG Vent. Rate : 66 BPM Atrial Rate : 66 BPM P-R Int : 190 ms QRS Dur : 84 ms QT Int : 392 ms P-R-T Axes : 49 -13 33 degrees QTcB Int : 410 ms Normal sinus rhythm Moderate voltage criteria for LVH, may be normal variant ( R in aVL , [place] product ) Nonspecific T wave abnormality Abnormal ECG When compared with ECG of 12-Sep-2015 16:15, T wave inversion now evident in Lateral leads Referred By: Vandana Farooq Electronically Signed By: Cruzito Harrison
[2024-06-01] MEDS: ondansetron HCL 4 MG/2 ML VIAL IVPUSH (09:38)
[2024-06-01] MEDS: Morphine Sulfate 4 MG/ML CARTRIDGE IVPUSH (09:38)
[2024-06-01 09:39] LABS: Basophils Percent Auto 0.5 % (0-2); Eosinophils Absolute Auto 0.1 X10*3/uL (0.0-0.4); Eosinophils Percent Auto 1.5 % (0-4); Hematocrit 40.2 % (37.0-47.0); Hemoglobin 13.1 g/dl (12.0-16.0); Imm Gran Abs Auto 0.02 X10*3/uL (0.00-0.03); Imm Gran Pct Auto 0.4 % (0.0-0.4); Lymphocytes Absolute Auto 1.3 X10*3/uL (1.2-4.9); Lymphocytes Percent Auto 23.6 % (20-40); MANUAL DIFF FLAG NO; Mean Corpuscular HGB Conc 32.6 g/dl (31.0-35.0); Mean Corpuscular Hemoglobin 30.9 pg (27.0-33.0); Mean Corpuscular Volume 94.8 fL (80.0-98.0); Mean Platelet Volume 10.5 fL (9.4-12.3); Monocytes Absolute Auto 0.5 X10*3/uL (0.1-1.2); Monocytes Percent Auto 9.8 % (2-11); Neutrophils Absolute Auto 3.5 x10*3/uL (2.0-8.3); Neutrophils Percent Auto 64.2 % (45-73); Platelet Count 187 X10*3/uL (160-400); Red Blood Count 4.24 X10*6/uL (4.20-5.50); Red Cell Distribution Width 13.4 % (11.0-16.0); White Blood Count 5.5 X10*3/uL (4.8-10.8)
--- NOTE | 2024-06-01 09:41 | PC.NURSE ---
reporting multiple falls recently, denies symptoms prior to falls. no thinners/LOC/head strike. patient reports having a hard time getting out of bed lately. right shoulder pain, recent xray done. also noted to have bruising to left flank which patient states is from the most recent fall. IV established, labs obtained and sent. medicated per the APR. call gutierrez within reach. awaiting ct scan
[2024-06-01 09:49] LABS: Prothrombin Time 11.9 SEC (10.9-12.4)
[2024-06-01 10:01] LABS: Alanine Aminotransferase 26 U/L (0-31); Albumin Level 4.1 g/dL (3.5-5.0); Alkaline Phosphatase 83 U/L (39-117); Anion Gap 13 (12-20); Aspartate Amino Transferase 33 U/L (5-31); Bilirubin Total 0.4 mg/dL (0.0-1.0); Blood Urea Nitrogen 19 mg/dL (9-16); Calcium 9.2 mg/dL (8.4-10.2); Carbon Dioxide 24 mmol/L (22-29); Chloride 106 mmol/L (96-108); Creatinine Clr Calc Pharmacy 52.5; Estimated Glomerular Filt Rate > 60; Glucose Random 113 mg/dL (60-115); Magnesium 1.9 mg/dL (1.6-2.6); Potassium 4.6 mmol/L (3.3-5.1); Sodium 138 mmol/L (135-145); Total Protein 7.2 g/dL (6.5-8.0)
[2024-06-01 10:09] LABS: Troponin-I High Sensitivity < 2.7 ng/L (<3.5-17.0)
[2024-06-01 10:32] LABS: Influenza A PCR NEGATIVE (Negative); Influenza B PCR NEGATIVE (Negative); Resp Syncy Virus RNA Qual PCR NEGATIVE (Negative); SARS COV2 PCR INHOUSE NEGATIVE (Negative)
--- OUTSIDE RECORDS SUMMARY | 2024-06-01 10:37 | XMS_ITS | Clinical Summary ---
Author Organization [employer] Address [address] [facility] 7t [place] [address] Care Team Providers Care Administrator Name Role Phone Name, Hill HERNANDEZ Primary Care Provider [phone] Allergies No known active allergies Medications * This document contains information received from the source organization and may not represent a complete record from that organization. Lancets (OneTouch Delica Plus [id number]) misc TEST BLOOD SUGAR THREE TIMES DAILY [...] 03/07/19 24 Active Lancets (OneTouch Delica Plus [id number]) miscIndications :Diabetes mellitus type 2 in obese TEST BLOOD SUGAR THREE TIMES DAILY 100 each 04/10/19 24 Active OneTouch Ultra Test test stripIndication s:Type 2 diabetes mellitus with other specified complication, without long-term current use of insulin ([facility]) TEST BLOOD SUGAR THREE TIMES DAILY 150 [...] complication, without long-term current use of insulin ([facility]),Jonnathan mcnulty hypertension TAKE 1 TABLET BY MOUTH [...] complication, without long-term current use of insulin ([facility]),Essen tial hypertension TAKE 1 TABLET BY MOUTH TWICE DAILY, WITH BREAKFAST AND WITH DINNER. 60 tablet 11 04/22/19 24 025 Discontinued amitriptyline (Elavil) 25 MG tablet TAKE 1 TABLET BY MOUTH AT BEDTIME 30 tablet 1 03/19/19 25 025 Discontinued(R eorder (will not trigger notification to Pharmacy)) Active Problems Problem Noted Date Diagnosed Date [...] family illness. Azeb's boyfriend unexpectedly in the [place]. They have been together for about four years. Azeb lives alone and reports having sense of isolation and feeling lonely. The passing of her boyfriend has been identified as main stressor. PLAN: (check all that apply) Further services needed, but declined Behavioral Health Integration Plan Internal Follow up with [facility] Patient Self Plan Patient to utilize skills provided in intervention , Patient to reach out to HHC team as needed, Comply with medication , [...] family illness. Azeb's boyfriend unexpectedly in the [place]. They have been together for about four years. Azeb lives alone and reports having sense of isolation and feeling lonely. The passing of her boyfriend has been identified as main stressor. PLAN: (check all that apply) Further services needed, but declined Behavioral Health Integration Plan Internal Follow up with [facility] Patient Self Plan Patient to utilize skills provided in intervention , [facility] as needed, Comply with medication [...] Encounters Date Type Department Care Team Description 06/01/2024 Telephone [facility] [address] [place] [address] Hill Dickson MD 05/20/2024 9:00 AM EDT Office Visit [facility] [address] [address] Cleveland Ruvalcaba MD Acute pain of right shoulder (Primary Dx); Shoulder injury, right, initial encounter; Abrasion of right knee, initial encounter; Hypertension, unspecified type 05/20/2024 Telephone [facility] [address] [place] [address] Hill Dickson MD Durable Medical Equipment 05/20/[address] [address] Hill Dickson MD ER Follow-up 05/08/2024 Refill [facility] [address] [place] [address] Hill Dickson MD 05/06/2024 Refill [facility] [address] [place] [phone] Hill Dickson MD Type 2 diabetes mellitus with other specified complication, without long-term current use of insulin ([facility]); Essential hypertension 04/20/2024 9:00 AM EST Office Visit [facility] [address] [address] Tina Powell MD Right wrist tendinitis (Primary Dx); Right hand tendonitis; Cellulitis of right wrist; Acute pain of right shoulder due to trauma 03/24/2024 Refill [facility] [address] [place] [address] Hill Dickson MD 03/24/2024 Telephone [facility] [address] [place] [address] Hill Dickson MD 03/18/2024 Telephone [facility] [address] [place] [address] Hill Dickson MD FYI 03/18/2024 Telephone [facility] [address] [place] [address] Name, MD Hill 03/17/2024 2:00 PM EST Office Visit [facility] [address] [place] [address] Name, MD Hill Type 2 diabetes mellitus with other specified complication, without long-term current use of insulin ([facility]) (Primary Dx); Primary osteoarthritis of both knees; Chronic right-sided low back pain with right-sided sciatica; Chronic insomnia 03/09/2024 Telephone [facility] [address] [place] [address] Livia Tracy MA chart prep from Last 3 Months Immunizations Name Administration [...] your housing situation today? I have richy gonzales 03/17/[address] you li [...] Office Visit [facility] [address] [place] [address] Name, MD Hill [address] [place] [address] Health Maintenance Due Date Last Done Comments [...] Additional history exists Lipid Panel 09/08/2024 09/09/2023, 05/05/2022, 07/10/2021, Additional history exists Diabetes: Hemoglobin A1C [...] complication, without long-term current use of insulin ([facility]) PROPHYLAXIS - ADULT Routine 05/27/2023 1 :00 [...] AM EDT Narrative 05/20/2024 9:52 AM EDT ?[facility] ?[address] ?[place] [address] ?XRay Report ? Signed ? Patient: Kennedy,Azeb ?MR#: [id number] ?? 4 ? : 1945 ?Acct:[id number] ? Age/Sex: 79 / F ?ADM Date: 03/26/25 ? Loc: HO.HHCX ? Attending Dr: Cleveland Ruvalcaba MD ? Ordering Physician: CLEVELAND RUVALCABA MD ?? Date of Service: 05/20/24 ?? Procedure(s): XR shoulder RT min 2V ?? Accession Number(s): [id number] ? cc: CLEVELAND RUVALCABA MD ? EXAMINATION: [...] DD/ 0929 ? TD/TT: 05/20/24 0940 ? Ham Marker: ? Procedure Note Zeeshan Petersen - 05/20/[address] [address] XRay Report Signed Patient: Abraham Kennedy#: [id number] 4 : 8Acct:[id number] Age/Sex: 79 / FADM Date: 05/20/24 Loc: HO.HHCX Attending Dr: Cleveland Ruvalcaba MD Ordering Physician: CLEVELAND RUVALCABA MD Date of Service: 05/20/24 Procedure(s): XR shoulder RT min 2V Accession Number(s): [id number] cc: CLEVELAND RUVALCABA MD EXAMINATION: XR SHOULDER [...] James Gonzalez MD 05/20/2024 09:49 AM EDT RP Dictated By: James Gonzalez MD Signed By: <Electronically signed by James Gonzalez MD in OV> 05/20/2449 DD/ 8 TD/TT: 05/20/24939 Ham Marker: us Cleveland Ruvalcaba MD IMG XR PROCEDURES Edited Result - Final * XR Hand 3+ Views Right (04/20/2024 9:42 AM EST) Anatomical Region Laterality Modality Upper Extremities, Hand Right Radiogra phic Imaging 04/20/2024 9:42 AM EST Narrative 04/20/2024 10:37 AM EST ?[facility] ?[address] ?[place] [address] ?XRay Report ? Signed ? Patient: Kennedy,Azeb ?MR#: [id number] ?? 4 ? : 1945 ?Acct:[id number] ? Age/Sex: 79 / F ?ADM Date: 04/20/24 ? Loc: HO.HHCX ? Attending Dr: Tina Powell MD ? Ordering Physician: Tina Powell MD ?? Date of Service: 04/20/24 ?? Procedure(s): XR hand RT min 3V ?? Accession Number(s): [id number] ? cc: Tina Powell MD ? EXAMINATION: [...] DD/ 0942 ? TD/TT: 04/20/24 1000 ? Ham Marker: ? Procedure Note Donotuseinterpreter, Image - 04/20/[address] [address] XRay Report Signed Patient: Abraham Kennedy#: [id number] 4 : 8Acct:[id number] Age/Sex: 79 / FADM Date: 04/20/24 Loc: HO.HHCX Attending Dr: Tina Powell MD Ordering Physician: Tina Powell MD Date of Service: 04/20/24 Procedure(s): XR hand RT min 3V Accession Number(s): [id number] cc: Tina Powell MD EXAMINATION: XR HAND [...] 04/20/24 1034 DD/ 0942 TD/TT: 04/20/24 1000 Ham Marker: us Tina Powell MD IMG XR PROCEDURES Final Result * XR Wrist 3+ Views Right (04/20/2024 9:41 AM EST) Anatomical Region Laterality Modality Upper Extremities, Wrist Right Radiogr aphic Imaging 04/20/2024 9:41 AM EST Narrative 04/20/2024 10:53 AM EST ?[facility] ?[address] ?[place] [address] ?XRay Report ? Signed ? Patient: Kennedy,Azeb ?MR#: [id number] ?? 4 ? : 1945 ?Acct:[id number] ? Age/Sex: 79 / F ?ADM Date: 04/20/24 ? Loc: HO.HHCX ? Attending Dr: Tina Powell MD ? Ordering Physician: Tina Powell MD ?? Date of Service: 04/20/24 ?? Procedure(s): XR wrist RT min 3V ?? Accession Number(s): [id number] ? cc: Tina Powell MD ? EXAMINATION: [...] DD/ 0941 ? TD/TT: 04/20/24 1000 ? Ham Marker: ? Procedure Note Donotuseinterpreter, Image - 04/20/2024 [facility] [address] [place] [address] XRay Report Signed Patient: Abraham Kennedy#: [id number] 4 : 8Acct:[id number] Age/Sex: 79 / FADM Date: 04/20/24 Loc: [facility] Attending Dr: Tina Powell MD Ordering Physician: Tina Powell MD Date of Service: 04/20/24 Procedure(s): XR wrist RT min 3V Accession Number(s): [id number] cc: Tina Powell MD EXAMINATION: XR WRIST, [...] Indra Carter MD 04/20/2024 10:49 AM EST Workstation: [id number] Dictated By: Indra Carter MD Signed By: <Electronically signed by Indra Carter MD in OV> 04/20/24 1049 DD/ 0941 TD/TT: 04/20/24 1000 Ham Marker: Tina Powell MD IMG XR PROCEDURES Final Result * POCT Glucose (03/17/2024 2:17 PM EST) Glucose Blood, POC 146 60 - 200 mg/dL QC Media Lot # [id number] Lot# Expiration Date [id number] Blood Capillary blood specimen / Unknown 03/17/2024 2:17 PM EST us Hill Dickson MD POINT OF CARE TEST ENTER/EDIT OR DERABLES Final Result * (ABNORMAL) POCT HGB A1C (03/17/2024 2:16 PM EST) Hemoglobin A1C 6.3(A) 4.0 - 6.0 % QC Media Lot # [id number] Lot# Expiration Date [id number] Blood 03/17/2024 2:16 PM EST us Hill Dickson MD POINT OF CARE TEST ENTER/EDIT OR DERABLES Final Result * Albumin, Random Urine W/Creatinine (09/09/2023 8:50 AM EDT) Creatinine, Urine 75.51 mg/dL [facility] Microalbumin Urine 7.0 mg/L [facility] Microalbum Creatinine Ratio Ur 9.2 <30 ug/mg cr [facility] Comment:Albumin/Creatinine R atio Reference Ranges: Normal: < 30 ug/mg creatinine Microalbuminuria: 30 - 300 ug/mg creatinineClinical Albuminuria: > 300 ug/mg creatinine Urine (Urine, Random) 09/09/2023 8:50 AM EDT 09/09/2023 11:13 AM EDT us Hill Dickson MD LAB URINE ORDERABLES Final Resul t [facility] [address] [place] [phone] * (ABNORMAL) Lipid Panel, Standard (09/09/2023 8:42 AM EDT) Triglycerides 119 <150 mg/dL [facility] Comment:Desirable Triglyceri de: less than 150 mg/dLBorderline High Triglyceride 150-199 mg/dLHigh Triglyceride: 200-499 mg/dLVery High Triglyceride: greater than or equal to 5OO mg/dL Cholesterol 190 <200 mg/dL [facility] Comment:Desirable Cholestero l: less than 200 mg/dLBorderline High Cholesterol: 200-239 mg/dLHigh Cholesterol: greater than 239 mg/dL LDL Cholesterol Calculated 102(H) <100 mg/dL [facility] Comment:Desirable LDL: less than 100 mg/dLNear Optimal/Above Optimal LDL: 110- 129 mg/dLBorderline High LDL: 130-159 mg/dLHigh LDL: 160-189 mg/dLVery High LDL: greater than or equal to 190 mg/dL HDL Cholesterol 65 >40 mg/dL [facility] Comment:Desirable HDL: great er than 40 mg/dL Note: This HDL assay may give artificially low results in patients with liver disease. Blood Venous blood specimen / Unknown 09/09/2023 8:42 AM EDT 09/09/2023 11:04 AM EDT us Hill Dickson MD LAB BLOOD ORDERABLES Final Resul t [facility] [address] [place] [phone] * Diabetes Eye Exam (03/22/2023) Eye [...] Antibody (09/15/2012) Hepatitis C Antibody Nonreactive Blood Result Bernarda Dickson MD HEALTH MAINTENANCE Final Result from Last 3 Months or Most Recently Relevant to Health Maintenance Insurance [facility] ST[facility]ARD [facility] - [facility] Care Teams Administrator Relationship Specialty Start Date End Date Name, MD Hill [address] [place] [address] PCP - General Family Medicine 03/15/15
--- OUTSIDE RECORDS SUMMARY | 2024-06-01 10:37 | XMS_ITS | Encounter Summary ---
Author Organization [employer] Address [address] [facility] 7t [place] [address] Care Team Providers Care Supercharger Repair Supervisor Name Role Phone Name, Hill HERNANDEZ Primary Care Provider [phone] Encounter Details Date Type Department Care Team (Latest Contact Info) Description 07/26/2021 Abstract [facility] CONVERSIONS Dental, Provider, DDS Social History [...] 06/16/2024 1:45 PM EDT Office Visit [facility] [address] [place] [address] Name, MD Hill [address] [place] [address] documented as of this encounter Visit Diagnoses Not on filedocumented in this encounter Care Teams Supercharger Repair Supervisor Relationship Specialty Start Date End Date Name, MD Hill [address] [place] [address] PCP - General Family Medicine 03/15/15 documented as of this encounter
--- OUTSIDE RECORDS SUMMARY | 2024-06-01 10:38 | XMS_ITS | Encounter Summary ---
Author Organization [employer] Address [address] [facility] 7t [place] [address] Care Team Providers Care Retrimmer Name Role Phone Name, Hill HERNANDEZ Primary Care Provider [phone] Reason for Visit * Reason Onset Date Comments triage 07/19/2022 Encounter Details Date Type Department Care Team ([facility] st Contact Info) Description 07/19/2022 Telephone [facility] [address] [place], [place] [phone] Name, MD Hill [address] [place] [address] triage Social History Tobacco Use Types Packs/Day [...] - 07/19/2022 10:55 AM EDT Call to Azbe Kennedy, reports having difficulty with sleeping. Per [...] worse The caller accepted this outcome speaks australian documented in this encounter Plan of Treatment Upcoming Encounters Date Type Department Care Team (Late st Contact Info) Description 06/16/2024 1:45 PM EDT Office Visit [facility] [address] [place] [address] Name, MD Hill [address] [place] [address] documented as of this encounter Visit Diagnoses Not on filedocumented in this encounter Additional Health Concerns Assessment Noted Time PHQ-9 Depression Total Score: 19 023 1:35 PM EDT documented as of this encounter Care Teams Retrimmer Relationship Specialty Start Date End Date Name, MD Hill [address] [place] [address] PCP - General Family Medicine 03/15/15 documented as of this encounter
--- OUTSIDE RECORDS SUMMARY | 2024-06-01 10:38 | XMS_ITS ---
Author Name Mckinley KINSEY MS. Virgie Olson Address [address] [place] [address] Phone [phone] [facility] Care Team Providers Care Deliverer Outside Name Role Phone Ruth Sen Unavailable [phone] Reason for Referral Not Available Allergies, adverse [...] 2021-12-05 No Data Available OneTouch Delica Plus [id number] Miscellaneous TEST BLOOD SUGAR THREE TIMES DAILY [...] (do not use for phone, instead use 38493-71) [facility] [place]20[place] Type 2 diabetes mellitus wit h other specified complicationHyperlipidemia, unspecifiedEssential (primary) hypertensionMajor depressive disorder, recurrent, in remission, unspecifiedPersonal history of (healed) traumatic fracture New patient,40-59min; chronic exacerbation, 2 stable chronic or 1 acute illness add add modifier 95 for video (do not use for phone, instead use 37767-91) [facility]2022 New patient,40-59min; chronic exacerbation, 2 stable chronic or 1 acute illness add add modifier 95 for video (do not use for phone, instead use 36459-95) [facility] [place] 06[place]04/2022 New patient,40-59min; chronic exacerbation, 2 stable chronic or 1 acute illness add add modifier 95 for video (do not use for phone, instead use 70684-67) [facility] [place]/2022 New patient,40-59min; chronic exacerbation, 2 stable chronic or 1 acute illness add add modifier 95 for video (do not use for phone, instead use 20323-79) [facility] [place] 06/[place]/2022 New patient,40-59min; chronic exacerbation, 2 stable chronic or 1 acute illness add add modifier 95 for video (do not use for phone, instead use 35061-71) [facility] [place] 06/04/2022 New patient,40-59min; chronic exacerbation, 2 stable chronic or 1 acute illness add add modifier 95 for video (do not use for phone, instead use 59869-47) [facility] [place] 06/04/2022 New patient,40-59min; chronic exacerbation, 2 stable chronic or 1 acute illness add add modifier 95 for video (do not use for phone, instead use 27531-85) [facility] [place] 06/04/2022 Vital Signs Date of Collection Vitals 2022-06-04 10:06:44 Height - 157.48 cmWe ight - 68.04 kgBody Mass Index (BMI) - 27.44 kg/m2 Social History Social History Social History Observation Description Effec tive Time Current Smoking Status Never smoker 7 Sex Female History of Procedures Procedures Service Procedure code Service date Servicing provider Phone# New patient,40-59min; chronic exacerbation, 2 stable chronic or 1 acute illness add add modifier 95 for video (do not use for phone, instead use 89777-97) [id number] 2022-06-04 No Data Available No Data Availa [...] ilable Functional Status Functional Category Effective Dates CAD INTERN assists with cooking, cl eaning and laundry. [...]
--- OUTSIDE RECORDS SUMMARY | 2024-06-01 10:38 | XMS_ITS ---
Author Organization [facility] Address [address] [place] [address] Care Team Providers Care Patient Ambassador Name Role Phone Name Hill HERNANDEZ Primary Care Provider James Kaur [phone] REASON FOR VISIT PLEASE VERIFY INSURANCE Encounters Encounter Location Date Provider Diagnosis [facility] [address] [place] [address] 05/21/2024 James Easton Plan Of Treatment Next Appt Details Provider Name:James Easton , 06/09/2024 10:10:00 AM, [address], [address], [place], [address], Progress Notes * RAFFAELE CHUNG EDOB:[birth year] (79 yo F)Acc No.[id number]:05/21/2024 Patient:?RAFFAELE CHUNG :1945???Age:79 Y???Sex:Female Address:[address], [place] [address] * true * Date:? Generated for Printi georgina/Andres/eTransmitting on:?06/01/2024 10:38 AM EDT
--- OUTSIDE RECORDS SUMMARY | 2024-06-01 10:38 | XMS_ITS | Encounter Summary ---
Author Organization [employer] Address [address] [facility] 7t [place] [address] Care Team Providers Care Courtroom Clerk Name Role Phone Name, Hill HERNANDEZ Primary Care Provider [phone] Encounter Details Date Type Department Care Team (Latest Contact Info) Description 04/21/2019 Abstract [facility] CONVERSIONS Dental, Provider, DDS Social History Tobacco [...] Office Visit [facility] MEDICINE [address] [place] [address] Name, MD Hill [address] [place] [address] documented as of this encounter Visit Diagnoses Not on filedocumented in this encounter Care Teams Courtroom Clerk Relationship Specialty Start Date End Date Name, MD Hill [address] [place] [address] PCP - General Family Medicine 03/15/15 documented as of this encounter
--- OUTSIDE RECORDS SUMMARY | 2024-06-01 10:38 | XMS_ITS | Encounter Summary ---
Author Organization [employer] Address [address] [facility] 7t [place] [address] Care Team Providers Care Night Worker Name Role Phone Name, Hill HERNANDEZ Primary Care Provider [phone] Encounter Details Date Type Department Care Team ([facility] Contact Info) Description 03/26/2022 Orders Only [facility] [address] [place] [address] Jane Oneill LPN Social History Tobacco Use [...] Description 06/16/2024 1:45 PM EDT Office Visit [facility] [address] [place] [address] Name, MD Hill [address] [place] [address] documented as of this encounter Visit Diagnoses Not on filedocumented in this encounter Care Teams Night Worker Relationship Specialty Start Date End Date Name, MD Hill [address] [place] [address] PCP - General Family Medicine 03/15/15 documented as of this encounter
--- OUTSIDE RECORDS SUMMARY | 2024-06-01 10:38 | XMS_ITS | Encounter Summary ---
Author Organization [employer] Address [address] [facility] 7t [place] [address] Care Team Providers Care Clinical Nursing Professor Name Role Phone Name, Hill HERNANDEZ Primary Care Provider [phone] Encounter Details Date Type Department Care Team (Latest Contact Info) Description 01/06/2020 Abstract [facility] CONVERSIONS Dental, Provider, DDS Social [...] Description 06/16/2024 1:45 PM EDT Office Visit [facility] MEDICINE [address] [place] [address] Name, MD Hill [address] [place] [address] documented as of this encounter Visit Diagnoses Not on filedocumented in this encounter Care Teams Clinical Nursing Professor Relationship Specialty Start Date End Date Name, MD Hill [address] [place] [address] PCP - General Family Medicine 03/15/15 documented as of this encounter
--- OUTSIDE RECORDS SUMMARY | 2024-06-01 10:38 | XMS_ITS | Encounter Summary ---
Author Organization [employer] Address [address] [facility] 7t [place] [address] Care Team Providers Care Underwater Trapper Name Role Phone Name, Hill HERNANDEZ Primary Care Provider [phone] Encounter Details Date Type Department Care Team (Latest Contact Info) Description 04/15/2018 Abstract [facility] CONVERSIONS Dental, Provider, DDS Social [...] Description 06/16/2024 1:45 PM EDT Office Visit [facility] MEDICINE [address] [place] [address] Name, MD Hill [address] [place] [address] documented as of this encounter Visit Diagnoses Not on filedocumented in this encounter Care Teams Underwater Trapper Relationship Specialty Start Date End Date Name, MD Hill [address] [place] [address] PCP - General Family Medicine 03/15/15 documented as of this encounter
--- OUTSIDE RECORDS SUMMARY | 2024-06-01 10:39 | XMS_ITS | Encounter Summary ---
Author Organization [employer] Address [address] [facility] 7t [place] [address] Care Team Providers Care Refractory Grinder Operator Name Role Phone Name, Hill HERNANDEZ Primary Care Provider [phone] Reason for Visit * Reason Onset Date Comments Med Refill telephone call 10/20/2022 SPRAYER MACHINE Services 10/20/2022 The pt requested to have her SPRAYER MACHINE services reinstated by CHUYITA. I called to inform her, that she needs to contact her insurance [facility] to make the request, because the referral needs to go through them. I reached a voicemail, and left a msg with the above information. I asked her to contact me at ext [phone], if she has any questions. Encounter Details Date Type Department Care Team (Late st Contact Info) Description 10/20/2022 Refill [facility] [address] [place] [address] Name, MD Hill [address] [place] [address] Social History Tobacco Use Types Packs/Day Years [...] EDT The pt requested to have her SPRAYER MACHINE services reinstated by CHUYITA. I called to inform her, that she needs to contact her insurance [facility] to make the request, because the referral needs to go through them. I reached a voicemail, and left a msg with the above information. I asked her to contact me at ext [phone], if she has any questions. * Telephone Encounter - Hope Zora - 10/22/2022 10:20 AM EDT Pt walked in requesting a call from PCP or nurses, because she has a question about char dust cleaner and salvager services and a form that her pcp signed and she has not hear anything from no one she doesn't specify exactly what she needs, she just wants the call. I told her to go to medical records she said they don't havethe form. Best # to call is [phone] documented in this encounter Plan of Treatment Upcoming Encounters Date Type Department Care Team (Late st Contact Info) Description 06/16/2024 1:45 PM EDT Office Visit [facility] [address] [place] [address] Name, MD Hill [address] [place] [address] documented as of this encounter Visit Diagnoses Not on filedocumented in this encounter Additional Health Concerns Assessment Noted Time PHQ-9 Depression Total Score: 19 023 1:35 PM EDT documented as of this encounter Care Teams Refractory Grinder Operator Relationship Specialty Start Date End Date Name, MD Hill [address] [place] [address] PCP - General Family Medicine 03/15/15 documented as of this encounter
--- OUTSIDE RECORDS SUMMARY | 2024-06-01 10:39 | XMS_ITS | Encounter Summary ---
Author Organization [employer] Address [address] [facility] 7t [place] [address] Care Team Providers Care Forge Press Operator Name Role Phone Name, Hill HERNANDEZ Primary Care Provider [phone] Encounter Details Date Type Department Care Team (Late st Contact Info) Description 01/21/2023 Telephone [facility] MED[facility]INE [address] [place], [place] [phone] Name, MD Hill [address] [place] [address] Social History Tobacco Use Types Packs/Day Years [...] 1:45 PM EDT Office Visit [facility] [address] [place] [address] Name, MD Hill [address] [place] [address] documented as of this encounter Visit Diagnoses Not on filedocumented in this encounter Additional Health Concerns Assessment Noted Time PHQ-9 Depression Total Score: 19 023 1:35 PM EDT documented as of this encounter Care Teams Forge Press Operator Relationship Specialty Start Date End Date NameHill MD [address] [place] [address] PCP - General Family Medicine 03/15/15 documented as of this encounter
--- OUTSIDE RECORDS SUMMARY | 2024-06-01 10:39 | XMS_ITS | Encounter Summary ---
Author Organization [employer] Address [address] [facility] 7t [place] [address] Care Team Providers Care Wound Care Technician Name Role Phone Name, Hill HERNANDEZ Primary Care Provider [phone] Reason for Visit * Reason Onset Date Comments Pre Op 10/02/2023 Encounter Details Date Type Department Care Team (Late st Contact Info) Description 10/02/2023 Telephone [facility] MEDICINE [address] [place], [place] [phone] Name, MD Hill [address] [place] [address] Pre Op Social History Tobacco Use Types [...] No Surgeon's name: Tomás Hopkins Facility name: [facility] Surgeon's office number: [phone] Surgeon's office fax number: [phone] Contact name: Yohana documented in this encounter Plan of Treatment Upcoming Encounters Date Type Department Care Team (Late st Contact Info) Description 06/16/2024 1:45 PM EDT Office Visit [facility]INE [address] [place] [address] Name, MD Hill [address] [place] [address] documented as of this encounter Visit Diagnoses Not on filedocumented in this encounter Additional Health Concerns Assessment Noted Time PHQ-9 Depression Total Score: 12 024 1:00 PM EDT documented as of this encounter Care Teams Wound Care Technician Relationship Specialty Start Date End Date Name, MD Hill [address] [place] [address] PCP - General Family Medicine 03/15/15 documented as of this encounter
--- OUTSIDE RECORDS SUMMARY | 2024-06-01 10:39 | XMS_ITS | Patient Health Record ---
Author Organization [facility] Address [address] [place] [address] Care Team Providers Care Weigh Machine Operator Name Role Phone Name Hill HERNANDEZ Primary Care Provider James Kaur [phone] Allergies No Known Allergies Reason For Referral No Information Medications Medication SIG (Take, Route, Frequency, Duration) Notes Start Date End Date Status Amitriptyline HCl 25 MG 1 tablet at bedt juan josé Orally Once a day Active Tylenol 8 Hour Arthritis Pain 650 MG 2 tablets as needed Orally every 8 hrs Active Omeprazole 20 MG TAKE 1 CAPSULE BY [facility] DAILY IN THE MORNING Oral for 30 [...] Problem Status W/U Status Risk Notes Problem 865023872 Colon cancer screening (Z12.11) Active confirmed Problem 975396645 Gastroesophageal reflux disease without esophagitis (K21.9) Active confirmed Problem 188904584 Gastroesophageal reflux disease, esophagitis presence not specified (K21.9) Active confirmed Problem 03551136 Constipation, unspecified constipation type (K59.00) Active confirmed Encounters Encounter Location Date Provider Diagnosis [facility] [address] [place] [phone] 05/21/2024 James Easton Plan Of Treatment Future Test Test Name Order Date COLONOSCOPY 12/02/2013 Next Appt Details Provider Name:James Easton , 06/09/2024 10:10:00 AM, [address], [address], [place], [address], Insurance Providers Payer Name Payer Address Payer Phone Subscriber Number Group Number Insured Name Patient Relationship to Insured Coverage Start Date Coverage End Date [facility] [address] [place] [address] [id number] RAFFAELE CHUNG Self - patient is the insured Medical (General) History Medical History History ICD Code Tubular adenomas removed in 2004. She had negative followup colonoscopies in 06/2008 and in 02/2014. Diverticulosis GERD--EGD in 2004-small HH--no sig. esop hagitis nor [place],CVA,Lung disease,renal disease NIDDM Surgical History Surgery Date(Month/Year) Cholecystectomy Tubal ligation Hysterectomy with ? removal of one ovary Breast reduction Left foot 08/2021
--- OUTSIDE RECORDS SUMMARY | 2024-06-01 10:39 | XMS_ITS | Encounter Summary ---
Author Organization [employer] Address [address] [facility] 7t [place] [address] Care Team Providers Care Seo Strategist Name Role Phone Name, Hill HERNANDEZ Primary Care Provider [phone] Reason for Visit * Reason Onset Date Comments ER Follow-up 05/20/2024 Encounter Details Date Type Department Care Team ([facility] st Contact Info) Description 05/20/2024 Telephone [facility] MEDICINE [address] [place], [place] [phone] Name, MD Hill [address] [place] [address] ER Follow-up Social History Tobacco Use Types Packs/Day Years [...] encounter Miscellaneous Notes * Telephone Encounter - Yazmin Banegas RN - 05/20/2024 12:36 PM EDT Please obtain ED report from [facility] 05/19/24. Thank you. Triage call to Pt with [facility] [employer] [place] [id number]. Pt is called for follow up post ED visit for fall. Pt was coming home and fell on right knee, shoulder and head. Pt reports being very sleepy . Pt just returned from apt and has taken something for pain. Pt is offered apt for follow up ED visit. Pt reports a nurse is coming this Saturday05/22/24 to see Pt and doesn't need follow up apt. Pt is advised to call back to [facility] if needed after 05/22/24 and Pt agrees with this plan. Protocol Used: Falls and Falling (Adult) Protocol-Based Disposition: Home Care Positive Triage Question: * Recent fall and no injury * All higher-acuity triage questions were negative Care Advice Discussed: * Reasons To Call Back - You become worse. * Telephone Encounter - Liya Rogers - 05/20/2024 12:06 PM EDT Patient calling to report ED visit on : Date: 05/19/24 Hospital: [facility] Seen for: Fall Symptomatic Yes pain on right arm *if yes message should go to Triage Patient advised will forward to team nurse for follow up documented in this encounter Plan of Treatment Upcoming Encounters Date Type Department Care Team (Late st Contact Info) Description 06/16/2024 1:45 PM EDT Office Visit [facility] MEDICINE [address] [place] [address] Name, MD Hill [address] [place] [address] documented as of this encounter Visit Diagnoses Not on filedocumented in this encounter Additional Health Concerns Assessment Noted Time PHQ-9 Depression Total Score: 4 03/17/19 25 2:14 PM EST documented as of this encounter Care Teams Seo Strategist Relationship Specialty Start Date End Date Name, MD Hill [address] [place] [address] PCP - General Family Medicine 03/15/15 documented as of this encounter
--- OUTSIDE RECORDS SUMMARY | 2024-06-01 10:39 | XMS_ITS | Encounter Summary ---
Author Organization [employer] Address [address] [facility] 7t [place] [address] Care Team Providers Care Director Of Front Office Name Role Phone Name, Hill HERNANDEZ Primary Care Provider Encounter Details Date Type Department Care Team (Late st Contact Info) Description 06/01/2024 Telephone [facility] MEDICINE [address] [place], [place] [phone] Name, MD Hill [address] [place] [address] Social History Tobacco Use Types Packs/Day Years [...] encounter Miscellaneous Notes * Telephone Encounter - Shira Oneill RN - 06/01/2024 8:27 AM EDT Around 0800, Rapid assist called to [facility] main lobby with report of unwitnessed pt fall, Dr. Clay reese present and assessed pt. Pt noted to be lying on left side and reported she slid and fell. Pt reports she did not hit head or loose consciousness, reporting right sided pain, which also waspresent prior to fall as pt reports multiple recent falls including falls on Saturday, Saturday and last night in bed. Pt assisted by three staff members to wheelchair. At first pt declined transport to hospital by EMS. Pt later in agreement. EMS was called by [facility] Security around 0805. Vitals obtained around 0809- Temp 96.9F temporal, BP 159/86, pulse 75, 97% RA. Pt declined for family to be notified. Pt reports she lives alone. Pt informed status check would be placed tomorrow. Pt verbalized understanding and in agreement. EMS arrive around 0811 and pt being transported to [facility]. Pt to F/U as needed. RN will forward to Blue Team Nurses to status check pt tomorrow 06/02/24 and will forward to PCP as FYI. documented in this encounter Plan of Treatment Upcoming Encounters Date Type Department Care Team (Late st Contact Info) Description 06/16/2024 1:45 PM EDT Office Visit [facility] MEDICINE [address] [place] [address] Name, MD Hill [address] [place] [address] documented as of this encounter Visit Diagnoses Not on filedocumented in this encounter Additional Health Concerns Assessment Noted Time PHQ-9 Depression Total Score: 4 03/17/19 25 2:14 PM EST documented as of this encounter Care Teams Director Of Front Office Relationship Specialty Start Date End Date Name, [place] [address] PCP - General Family Medicine 03/15/15 documented as of this encounter
--- OUTSIDE RECORDS SUMMARY | 2024-06-01 10:39 | XMS_ITS | Encounter Summary ---
Author Organization [employer] Address [address] [facility] 7t [place] [address] Care Team Providers Care Cosmetic Surgeon Name Role Phone Name, Hill HERNANDEZ Primary Care Provider [phone] Reason for Visit * Reason Onset Date Comments Pre-op Visit 04/25/2023 Encounter Details Date Type Department Care Team ([facility] st Contact Info) Description 04/25/2023 Telephone [facility] MEDICINE [address] [place], [place] [phone] Name, MD Hill [address] [place] [address] Pre-op Visit Social History Tobacco Use Types [...] Lab needed: No EKG: No Surgeon's name: [facility] name: [facility] Surgeon's office number: [phone] Surgeon's office fax number: [phone] Contact name (person you spoke with): Patricia Last office note from surgeon requested documented in this encounter Plan of Treatment Upcoming Encounters Date Type Department Care Team (Late st Contact Info) Description 06/16/2024 1:45 PM EDT Office Visit [facility]INE [address] [place] [address] Name, MD Hill [address] [place] [address] documented as of this encounter Visit Diagnoses Not on filedocumented in this encounter Additional Health Concerns Assessment Noted Time PHQ-9 Depression Total Score: 0 03/07/19 24 8:57 AM EST documented as of this encounter Care Teams Cosmetic Surgeon Relationship Specialty Start Date End Date Name, MD Hill [address] [place] [address] PCP - General Family Medicine 03/15/15 documented as of this encounter
--- OUTSIDE RECORDS SUMMARY | 2024-06-01 10:39 | XMS_ITS | Clinical Summary ---
Author Organization [address] [place] [address] Address [address] [place] [address] Phone Care Team Providers Care Circuit Design Engineer Name Role Phone Gina Fonseca MD Primary [...] PM EST Office Visit Orthopedic Surgery - [address] [address] Vicente Pearce, DPM Hallux rigidus [...] right leg BREAST REDUCTION 2009 Bilateral PROCEDURE: MS BREAST REDUCTION Medical History Medical History Date Comments Unspecified essential hypertension DX:Unspecified essential hypertension DM type 2 (diabetes mellitus , type 2) ([facility]) 12/24/2012 DX:DM type 2 (diabetes melli tus, type 2) ([facility]) Family History Medical History Relation Name Comments Cataracts Father Glaucoma Father Breast cancer Mother 75 Breast cancer Sister 1 70 Blindness Neg Hx Macular degeneration Neg Hx Strabismus Neg Hx Relation Name Status Comments Daughter Alive HTN Father IA and DM Mother 75 Breast cancer Sister [...] AM EDT Office Visit Orthopedic Surgery - [place] [address] [address] Vicente Pearce, DPM [address] [address] Health Maintenance Due Date Last Done Comments Diabetes: Annual Foot Exam 1957 Diabetes: Annual Retina Eye Exam 1955 Zoster Vaccines (2 of 3) 01/27/2014 12/02/2013 Falls Risk Assessment 01/28/2022 Medicare Annual Wellness Visit 01/28/2022 Osteoporosis Screening (Bone Density Screening) 01/28/2022 Social Influencers of Health Screening 01/28/2022 RSV Immunization Adult Patients (1 - 1-dose 75+ series) 2022 COVID-19 [...] Final Result * (ABNORMAL) Hemoglobin A1c (04/04/2015) Hemoglobin A1C 6.5(A) 4.0 - 6.0 % Blood Venous blood specimen / Unknown [facility] Provider LAB BLOOD ORDERABLES Lina l Result * (ABNORMAL) Lipid panel (04/04/2015) Pathologist [facility] LDL/HDL Ratio 4 0 - 4 Triglycerides 223(A) 0 - 150 mg/dL Cholesterol 194 0 - 200 mg/dL HDL 1(A) >=40 mg/dL LDL Cholesterol 96 0 - 100 mg/dL Blood Venous blood specimen / Unknown [facility] Provider LAB BLOOD ORDERABLES Lina l Result * Urine Albumin Creatinine Ratio (08/27/2014) Pathologist [facility] Urine Albumin Creatinine Ratio abstracted [facility] Provider HEALTH MAINTENANCE Final Result * Hepatitis C Screening (09/15/2012) Pathologist [facility] Hepatitis C Screening abstracted [facility] Provider HEALTH MAINTENANCE Final Result from Last 3 Months or Most Recently Relevant to Health Maintenance Insurance [facility] MEDIC[facility] Member Subscriber Plan / Payer (Ef fective 2023-Present) Name:Azeb Kennedy Relation to Subscriber:Self Name:Azeb Kennedy Payer ID:[id number] Group ID:[id number] Type:Not on file Address: [place] [address] [address] [id number] Care Teams Circuit Design Engineer Relationship Specialty Start Date End Date Gina Fonseca MD [address] [facility] [place] PCP - General Internal Medicine 10/16/21
--- OUTSIDE RECORDS SUMMARY | 2024-06-01 10:39 | XMS_ITS | Encounter Summary ---
Author Organization [employer] Address [address] [facility] 7t [place] [address] Care Team Providers Care Fashion Intern Name Role Phone Name, Hill HERNANDEZ Primary Care Provider Reason for Visit * Reason Onset Date Comments requesting a call 09/04/2022 Encounter Details Date Type Department Care Team ([facility] st Contact Info) Description 09/04/2022 Telephone [facility] MEDICINE [address] [place] [phone] Name, MD Hill [address] [place] [address] requesting a call Social History Tobacco Use [...] - 09/05/2022 2:46 PM EDT T/C to [phone] for below message through [employer] id - [id number] for below message, pt. States she is all set, she does not has any question right now. Pt. Advised to give call to [facility] if any questions or concerns. * Telephone Encounter - Hemalatha Rodriguez - 09/04/2022 2:39 PM EDT Tc from pt requesting a call. Pt did not go in to detail and is aware of upcoming appointment. Please contact pt at [phone] (Swedish speaker) documented in this encounter Plan of Treatment Upcoming Encounters Date Type Department Care Team (Late st Contact Info) Description 06/16/2024 1:45 PM EDT Office Visit [facility] MEDICINE [address] [place] [address] Name, MD Hill [address] [place] [address] documented as of this encounter Visit Diagnoses Not on filedocumented in this encounter Additional Health Concerns Assessment Noted Time PHQ-9 Depression Total Score: 19 023 1:35 PM EDT documented as of this encounter Care Teams Fashion Intern Relationship Specialty Start Date End Date Name, MD Hill [address] [place] [address] PCP - General Family Medicine 03/15/15 documented as of this encounter
--- OUTSIDE RECORDS SUMMARY | 2024-06-01 10:39 | XMS_ITS | Encounter Summary ---
Author Organization [employer] Address [address] [facility] 7t [place] [address] Care Team Providers Care Android Ios Developer Name Role Phone Name, Hill HERNANDEZ Primary Care Provider [phone] Reason for Visit * Reason Onset Date Comments Durable Medical Equipment 05/20/2024 Encounter Details Date Type Department Care Team ([facility] st Contact Info) Description 05/20/2024 Telephone [facility] MEDICINE [address] [place], [place] [phone] Name, MD Hill [address] [place] [address] Durable Medical Equipment Social History Tobacco Use Types Packs/Day Years [...] encounter Miscellaneous Notes * Telephone Encounter - Kerry Pierce - 05/29/2024 10:05 AM EDT RX for Walker signed and faxed to [facility]. Confirmation received and sent to [facility]. If patient calls to check status on above, please advise them to contact [facility] manager medicare marketing . * Telephone Encounter - Kerry Pierce - 05/20/2024 2:53 PM EDT DME RX for Rollator Walker generated and sent to provider via [employer] for review and signature. * Telephone Encounter - Liya Rogers - 05/20/2024 12:10 PM EDT Tc from [facility] with [facility] requesting a Rolator walker. Requested to be faxed to [employer] [phone]. documented in this encounter Plan of Treatment Upcoming Encounters Date Type Department Care Team (Late st Contact Info) Description 06/16/2024 1:45 PM EDT Office Visit [facility]INE [address] [place] [address] Name, MD Hill [address] [place] [address] documented as of this encounter Visit Diagnoses Not on filedocumented in this encounter Additional Health Concerns Assessment Noted Time PHQ-9 Depression Total Score: 4 03/17/19 25 2:14 PM EST documented as of this encounter Care Teams Android Ios Developer Relationship Specialty Start Date End Date Name, MD Hill [address] [place] [address] PCP - General Family Medicine 03/15/15 documented as of this encounter
--- OUTSIDE RECORDS SUMMARY | 2024-06-01 10:39 | XMS_ITS | Encounter Summary ---
Author Organization [employer] Address [address] [facility] 7t [place] [address] Care Team Providers Care Transit Mechanic Name Role Phone Name, Hill HERNANDEZ Primary Care Provider [phone] Reason for Visit * Reason Onset Date Comments FYI 05/07/2023 Encounter Details Date Type Department Care Team ([facility] st Contact Info) Description 05/07/2023 Telephone [facility] MEDICINE [address] [place], [place] [phone] Name, MD Hill [address] [place] [address] I Social History Tobacco Use Types Packs/Day Years [...] blood pressure and Charla rojas advised by scientific technical writer that pt was seen yesterday and have an appt on . Any questions to Dennise [phone] documented in this encounter Plan of Treatment Upcoming Encounters Date Type Department Care Team (Late st Contact Info) Description 06/16/2024 1:45 PM EDT Office Visit [facility] MEDICINE [address] [place] [address] Name, MD Hill [address] [place] [address] documented as of this encounter Visit Diagnoses Not on filedocumented in this encounter Additional Health Concerns Assessment Noted Time PHQ-9 Depression Total Score: 0 03/07/19 24 8:57 AM EST documented as of this encounter Care Teams Transit Mechanic Relationship Specialty Start Date End Date Name, MD Hill [address] [place] [address] PCP - General Family Medicine 03/15/15 documented as of this encounter
--- OUTSIDE RECORDS SUMMARY | 2024-06-01 10:39 | XMS_ITS | Encounter Summary ---
Author Organization [employer] Address [address] [facility] 7t [place] [address] Care Team Providers Care Kindergartners Helper Name Role Phone Name, Hill HERNANDEZ Primary Care Provider [phone] Encounter Details Date Type Department Care Team (Late st Contact Info) Description 02/01/2023 Telephone [facility] MEDICINE [address] [place], [place] [phone] Name, MD Hill [address] [place] [address] Social History Tobacco Use Types Packs/Day Years [...] 1:45 PM EDT Office Visit [facility] MEDICINE [address] [place] [address] Name, MD Hill [address] [place] [address] documented as of this encounter Visit Diagnoses Not on filedocumented in this encounter Additional Health Concerns Assessment Noted Time PHQ-9 Depression Total Score: 19 023 1:35 PM EDT documented as of this encounter Care Teams Kindergartners Helper Relationship Specialty Start Date End Date NameHill MD [address] [place] [address] PCP - General Family Medicine 03/15/15 documented as of this encounter
--- OUTSIDE RECORDS SUMMARY | 2024-06-01 10:39 | XMS_ITS | Encounter Summary ---
Author Organization [facility] Address [address] [facility] 7t [place] [address] Care Team Providers Care Electro Optics Engineer Name Role Phone Name, Hill HERNANDEZ Primary Care Provider [phone] Reason for Visit * Reason Onset Date Comments Call Back Request 02/01/2023 Encounter Details Date Type Department Care Team ([facility] st Contact Info) Description 02/01/2023 Telephone [facility] [address] [place], [place] [phone] Name, MD Hill [address] [place] [address] Call Back Request Social History Tobacco Use [...] 2:16 PM EST T/C to pt. Through addwish id - [id number] for below message to inform submit paperwork regarding [employer] hours at medical records/ forms dept. Pt. Verbally agreed and understood. * Telephone Encounter - Aylin Duncan - 02/01/2023 3:37 PM EST Tc from pt requesting a call back in regards paperwork for [employer] hours. documented in this encounter Plan of Treatment Upcoming Encounters Date Type Department Care Team (Late st Contact Info) Description 06/16/2024 1:45 PM EDT Office Visit [facility] [address] [place] [id number] Name, MD Hill [address] [place] [address] documented as of this encounter Visit Diagnoses Not on filedocumented in this encounter Additional Health Concerns Assessment Noted Time PHQ-9 Depression Total Score: 19 023 1:35 PM EDT documented as of this encounter Care Teams Electro Optics Engineer Relationship Specialty Start Date End Date NameHill MD [address] [place] [id number] PCP - General Family Medicine 03/15/15 documented as of this encounter
--- OUTSIDE RECORDS SUMMARY | 2024-06-01 10:39 | XMS_ITS | Encounter Summary ---
Author Organization [employer] Address [address] [facility] 7t [place] [address] Care Team Providers Care Insulation Nozzleman Name Role Phone Name, Hill HERNANDEZ Primary Care Provider [phone] Encounter Details Date Type Department Care Team (Late st Contact Info) Description 07/30/2022 Abstract [facility] [address] [place] [address] [phone] Name, MD Hill [address] [place] [address] [phone] Social History Tobacco Use Types Packs/Day Years [...] Description 06/16/2024 1:45 PM EDT Office Visit [facility] [address] [place] [address] [phone] Name, MD Hill [address] [place] [address] [phone] documented as of this encounter Procedures Procedure [...] documented as of this encounter Care Teams Insulation Nozzleman Relationship Specialty Start Date End Date Name, MD Hill [address] [place] [address] PCP - General Family Medicine 03/15/15 documented as of this encounter
[2024-06-01] MEDS: iohexoL 350 MG/ML 100 ML INFUS..BTL IV (10:56)
[2024-06-01 13:53] VITALS: BP 148/92; PULSE 65; RESP 16; TEMP 36.1; O2SAT 96
--- NOTE | 2024-06-01 14:18 | PC.NURSE ---
patient previously ambulated to the bathroom with one assist. patient reports the most difficulty/pain to this RN upon sitting up and getting out of bed. physical therapy currently meeting with patient
[2024-06-01] MEDS: Cyclobenzaprine HCl 5 MG TABLET PO (14:26)
--- NOTE | 2024-06-01 15:36 | MHC.CM.ED ---
Received case management consult from Vandana NGUYEN. Patient came to the ER d/t fall. Found to have a left 10th rib fx. Physical therapy eval completed. Short term rehab is recommended. Met with patient in regards to discharge planning. Patient is primarily Czech speaking. gear technician helped with assessment. Patient lives alone, has a cane and a SPECIAL EDUCATION INCLUSION TEACHER through [facility]. PCP verified. Patient has never been to short term rehab. STR explained. Patient agreeable to referral being broadcasted locally and bed offers being discussed with patient. Anticipate patient will stay in ER overnight. Vandana NGUYEN and Rebecca GONZALES aware. Continue to monitor for d/c needs.
[2024-06-01 16:51] VITALS: BP 158/85; PULSE 65; RESP 14; TEMP 36.2; O2SAT 94
--- NOTE | 2024-06-01 18:00 | PC.NURSE ---
call placed to pharmacy for med rec
[2024-06-01 19:11] VITALS: BP 169/76; PULSE 81; RESP 16; TEMP 36.3; O2SAT 93
--- NOTE | 2024-06-01 19:13 | PHA.MEDREC ---
Addendum entered by Ayesha Thompson [facility] 06/01/24 19:32: Reviewed by pharmacist Original Note: Pharmacy Consult ? Medication Reconciliation Pharmacy has completed the medication reconciliation. Spoke with patient utilizing asl interpreter and patient was able to confirm her medications. Patient confirmed she is still taking the Lisionpril 2.5mg tab for high blood pressure and Pravastatin 10mg tabs for high cholesterol even tho the last fill dates for those were 01/13/2024 for 90 days. She also confirmed she takes the Meloxicam 15mg tab as needed for nerve pain and still has some at home. She confirmed her Amitriptyline tab increased from 25mg tabs once a day to 50mg tabs once a day in the last about month she stated. She confirmed she is only using the Meloxicam as needed for pain and Amitrypiline tabs at bedtime for pain and nothing else at this time. She confirmed she last took her medications this morning.
[2024-06-01 20:04] VITALS: BP 169/76
[2024-06-01] MEDS: lisinopriL 2.5 MG TABLET PO (20:04)
[2024-06-01] MEDS: Melatonin 3 MG TABLET 6 MG PO (20:04)
[2024-06-01] MEDS: Pravastatin Sodium 10 MG TABLET PO (20:05)
--- NOTE | 2024-06-01 20:10 | MHC.CM.ED ---
CM met with patient with medical office technologist, as pt is Indonesian speaking only. Reviewed PT recommendation for [facility]. Pt is agreeable. Reviewed bed offers. Pt accepts a bed at [facility]. Facility notified via [employer]. Awaiting auth. Pt has [facility].
--- NOTE | 2024-06-01 20:13 | PC.NURSE ---
Took over care from Debra Fernandez at 19:00, medicated per apr, pt resting in bed at this time.
[2024-06-01] MEDS: Magnesium Oxide 400 MG TABLET PO (20:21)
--- NOTE | 2024-06-01 20:21 | PC.NURSE ---
Assist pt to Bathroom.
[2024-06-01 20:42] LABS: Appearance Urine Clear; Color Urine Yellow; Glucose Urine UA Negative (Negative); Leukocyte Esterase Urine Large (3+) (Negative); Nitrite Urine Negative (Negative); PH 6.5 (5.0-9.0); Specific Gravity - Urine >= 1.030 (1.005-1.025); UMIC TRIGGER UACC YES; Urine Blood Negative (Negative); Urine Ketones Negative (Negative); Urine Protein Negative (Neg-Trace)
[2024-06-01 20:45] LABS: Bacteria Urine None Seen (None Seen); Hyaline Casts Urine 0-2 /LPF (0-2); RBC Urine 0-2 /HPF (0-2); Squamous Epithelial Cell Urine 0-2 /HPF (0-2); UACC Culture Trigger YES
[2024-06-01] MEDS: NaPROXEN 500 MG TABLET PO (20:51)
--- NOTE | 2024-06-02 02:04 | PC.NURSE ---
incentive spectrometry education completed and warm blanket given.
--- NOTE | 2024-06-02 03:54 | PC.NURSE ---
pt sleeping at this time.
[2024-06-02 05:16] VITALS: BP 119/63; PULSE 58; RESP 16; TEMP 36.6; O2SAT 94
[2024-06-02] MEDS: Omeprazole 20 MG CAPSULE.DR PO (06:33)
--- NOTE | 2024-06-02 06:37 | PC.NURSE ---
medicated per mar.
[2024-06-02] MEDS: metFORMIN HCl 850 MG TABLET PO (07:38)
[2024-06-02 08:38] VITALS: BP 132/68
[2024-06-02] MEDS: Pravastatin Sodium 10 MG TABLET PO (08:38)
[2024-06-02] MEDS: lisinopriL 2.5 MG TABLET PO (08:38)
[2024-06-02] MEDS: Magnesium Oxide 400 MG TABLET PO (08:38)
[2024-06-02 08:39] VITALS: BP 132/68; PULSE 61; RESP 19; TEMP 36.6; O2SAT 94
--- NOTE | 2024-06-02 08:56 | MHC.CM.ED ---
Addendum entered by Carlota Raymundo 06/02/24 11:53: Ins auth has been obtained by [facility]. Patient can leave at 3pm. Kimberly GUO booked. Med [facility] with chart. Patient, Tina RN and Gela NGUYEN aware. Original Note: Patient remains in ER. [facility] is in the process of obtaining insurance auth. HCP completed, signed and witnessed. Original given to patient. Copy placed in chart. [facility] PASRR Level 1 completed. Both sent to [facility]. Continue to monitor for d/c neds.
--- NOTE | 2024-06-02 11:19 | PC.NURSE ---
Report given to Emily GONZALES in [facility]. Preparing to transfer to [facility] shortly. Awaiting transport.
--- NOTE | 2024-06-02 14:19 | PC.NURSE ---
ems given report, patient tx to snf
== END 2024-06-02 14:19 ==
PROVIDERS: Physician Assistant Medical; Emergency Provider Emergency Medicine Emergency Medical Services; PCP Internal Medicine Geriatric Medicine
DX: S22.32XA Fracture of one rib, left side, initial encounter for closed fracture (principal); R07.89 Other chest pain; R26.81 Unsteadiness on feet; R10.2 Pelvic and perineal pain; I10 Essential (primary) hypertension; E11.9 Type 2 diabetes mellitus without complications; X58.XXXA Exposure to other specified factors, initial encounter; Y93.9 Activity, unspecified; Y92.9 Unspecified place or not applicable; Y99.8 Other external cause status; Z79.899 Other long term (current) drug therapy; Z91.81 History of falling; Z03.818 Encounter for observation for suspected exposure to other biological agents ruled out; Z79.84 Long term (current) use of oral hypoglycemic drugs
CPT/HCPCS: 0241U; 71260; 74177; 80053; 81001; 83735; 84484; 85025; 85610; 87086; 93005; 96374; 96375; 97162; 99285; J2270; J2405; Q9967

== ENCOUNTER → 2024-06-01 09:12 | Outpatient (BNV) | payer OTHER, SELFPAY | PROVIDERS: Emergency Provider Emergency Medicine; PCP Internal Medicine Geriatric Medicine; Visit Provider Radiology Diagnostic Radiology | DX: S22.32XA Fracture of one rib, left side, initial encounter for closed fracture (principal); K76.0 Fatty (change of) liver, not elsewhere classified | CPT/HCPCS: 71260; 74177 ==

== ENCOUNTER → 2024-06-01 09:12 | Outpatient (BNV) | payer OTHER, SELFPAY | PROVIDERS: PCP Internal Medicine Geriatric Medicine; Visit Provider Internal Medicine Cardiovascular Disease | DX: R94.31 Abnormal electrocardiogram [ECG] [EKG] (principal); R53.1 Weakness | CPT/HCPCS: 93010 ==

== ENCOUNTER 2024-06-11 09:35 | Outpatient (REF) | payer OTHER, SELFPAY ==
--- OUTSIDE RECORDS SUMMARY | 2024-06-11 10:59 | XMS_ITS ---
Author Organization [facility] Address [address] [place] [address] Care Team Providers Care Radiographer Angiogram Name Role Phone Name Hill HERNANDEZ Primary Care Provider James Kaur [phone] Encounters Encounter Location Date Provider Diagnosis [facility] [address] [place] [address] 06/09/2024 James Easton Plan Of Treatment No Information Progress Notes * RAFFAELE CHUNG EDOB:[birth year] (79 yo F)Acc No.[id number]:06/09/2024 Patient:?CHUNG RAFFAELE Fermin :1945???Age:79 Y???Sex:Female Address:[address], [place] [address] * * Date:?
--- OUTSIDE RECORDS SUMMARY | 2024-06-11 10:59 | XMS_ITS ---
Author Name Mckinley KINSEY MS. Virgie Olson Address [address] [place] [address] Phone [phone] [facility] Care Team Providers Care Prime Broker Name Role Phone Ruth Sen Unavailable [phone] Reason for Referral Not Available Allergies, adverse [...] 2021-12-05 No Data Available OneTouch Delica Plus [id number] Miscellaneous TEST BLOOD SUGAR THREE TIMES DAILY [...] (do not use for phone, instead use 09580-73) [facility] 06/04/2022 Type 2 diabetes mellitus wit h other specified complicationHyperlipidemia, unspecifiedEssential (primary) hypertensionMajor depressive disorder, recurrent, in remission, unspecifiedPersonal history of (healed) traumatic fracture New patient,40-59min; chronic exacerbation, 2 stable chronic or 1 acute illness add add modifier 95 for video (do not use for phone, instead use 76146-77) [facility] 06/04/2022 New patient,40-59min; chronic exacerbation, 2 stable chronic or 1 acute illness add add modifier 95 for video (do not use for phone, instead use 66736-38) [facility] 06/04/2022 New patient,40-59min; chronic exacerbation, 2 stable chronic or 1 acute illness add add modifier 95 for video (do not use for phone, instead use 68832-58) [facility] [place] 06/04/2022 New patient,40-59min; chronic exacerbation, 2 stable chronic or 1 acute illness add add modifier 95 for video (do not use for phone, instead use 78062-15) [facility] [place] 06/04/2022 New patient,40-59min; chronic exacerbation, 2 stable chronic or 1 acute illness add add modifier 95 for video (do not use for phone, instead use 15202-31) [facility] [place] 06/04/2022 New patient,40-59min; chronic exacerbation, 2 stable chronic or 1 acute illness add add modifier 95 for video (do not use for phone, instead use 17777-67) [facility] [place] 06/04/2022 New patient,40-59min; chronic exacerbation, 2 stable chronic or 1 acute illness add add modifier 95 for video (do not use for phone, instead use 17945-99) [facility] [place] 06/04/2022 Vital Signs Date of Collection Vitals 2022-06-04 10:06:44 Height - 157.48 cmWe ight - 68.04 kgBody Mass Index (BMI) - 27.44 kg/m2 Social History Social History Social History Observation Description Effec tive Time Current Smoking Status Never smoker 2024-05-26 7 Sex Female History of Procedures Procedures Service Procedure code Service date Servicing provider Phone# New patient,40-59min; chronic exacerbation, 2 stable chronic or 1 acute illness add add modifier 95 for video (do not use for phone, instead use 04151-01) 23213 2022-06-04 No Data Available No Data Availa [...] ilable Functional Status Functional Category Effective Dates WOOD FORM BUILDER assists with cooking, cl eaning and laundry. [...]
--- OUTSIDE RECORDS SUMMARY | 2024-06-11 10:59 | XMS_ITS | Encounter Summary ---
Author Organization [facility] Address [address] [place] [phone] Care Team Providers Care Trolley Car Mechanic Name Role Phone Gina Fonseca MD Primary Care Provider [phone] Encounter Details Date Type Department Care Team (Late st Contact Info) Description 06/10/2024 Lab Requisition [facility] - Main Lab [address] [facility] [place] [address] Behzad Conway MD [address] [place] [address] [phone] Anemia, unspecified Social History Tobacco Use Types Packs/Day Years [...] on file documented as of this encounter Plan of Treatment Not on file documented as of this encounter Visit Diagnoses Diagnosis Anemia, unspecified documented in this encounter Care Teams Trolley Car Mechanic Relationship Specialty Start Date End Date Gina Fonseca MD [address] [place], [place] PCP - General Internal Medicine 10/16/21 documented as of this encounter
--- OUTSIDE RECORDS SUMMARY | 2024-06-11 11:00 | XMS_ITS | Encounter Summary ---
Author Organization [facility] Address [address] [place] [address] Care Team Providers Care Type Casting Machine Operator Name Role Phone Gina Fonseca MD Primary Care Provider [phone] Encounter Details Date Type Department Care Team (Late st Contact Info) Description 06/04/2024 Lab Requisition [facility] - Main Lab [address] [facility] [place] [address] Behzad Conway MD [address] [place] [address] [phone] Anemia, unspecified; Type 2 diabetes mellitus without complications (CMS/HCC V24, CMS/HCC V28) Social History Tobacco Use Types Packs/Day Years [...] on file documented as of this encounter Procedures Procedure Name Priority Date/Time Associated Diagnosis Comments COMPLETE BLOOD COUNT Routine 06/04/2024 7:34 AM EDT Anemia, unspecified Type 2 diabetes mellitus without complications (CMS/HCC V24, CMS/HCC V28) HEMOGLOBIN A1C Routine 06/04/2024 7:34 AM EDT Anemia, unspecified Type 2 diabetes mellitus without complications (CMS/HCC V24, CMS/HCC V28) COMPREHENSIVE METABOLIC PANEL Routine 06/04/2024 7:34 AM EDT Anemia, unspecified Type 2 diabetes mellitus without complications (CMS/HCC V24, CMS/HCC V28) documented in this encounter Results * (ABNORMAL) Hemoglobin A1c (06/04/2024 7:34 AM EDT) [facility] Hemoglobin A1C 6.6(H) <6.5 % LAB CHEMISTRY METHOD 06/04/2024 12:34 PM EDT [facility] Mean Bld Glu Estim. 143 mg/dL LAB CHEMISTRY METHOD 06/04/2024 12:34 PM EDT [facility] Blood Venous blood specimen / Unknown Venipuncture / Unknown 06/04/2024 7:34 AM EDT 06/04/2024 9:59 AM EDT Behzad Conway MD LAB BLOOD ORDERABLES Final Result [facility] [address] [place] [address], * (ABNORMAL) Comprehensive metabolic panel (06/04/2024 7:34 AM EDT) [facility] Sodium 139 133 - 145 mmol/L LAB CHEMISTRY METHOD 06/04/2024 10:53 AM [facility] Potassium 4.6 3.5 - 5.5 mmol/L LAB CHEMISTRY METHOD 06/04/2024 10:53 AM [facility] Chloride 105 96 - 110 mmol/L LAB CHEMISTRY METHOD 06/04/2024 10:53 AM T [facility] CO2 30 21 - 32 mmol/L LAB CHEMISTRY METHOD 06/04/2024 10:53 AM [facility] Anion Gap 4 3 - 11 LAB CHEMISTRY METHOD 06/04/2024 10:53 AM [facility] Glucose 105(H) 70 - 100 mg/dL LAB CHEMISTRY METHOD 06/04/2024 10:53 AM [facility] BUN 18 5 - 25 mg/dL LAB CHEMISTRY METHOD 06/04/2024 10:53 AM [facility] Creatinine 0.74 0.50 - 1.10 mg/dL LAB CHEMISTRY METHOD 06/04/2024 10:53 AM [facility] eGFR 83 >=60 mL/min/1. 73m2 LAB CHEMISTRY METHOD 06/04/2024 10:53 AM [facility] Comment:Calculation based on the??Chronic Kidney Disease Epidemiology Collaboration (CKD-EPI) equation refit??without adjustment for race. BUN/Creatinine Ratio 24.3 LAB CHEMISTRY METHOD 06/04/2024 10:53 AM [facility] Calcium 9.2 8.5 - 10.5 mg/dL LAB CHEMISTRY METHOD 06/04/2024 10:53 AM [facility] AST (SGOT) 37 10 - 42 unit/L LAB CHEMISTRY METHOD 06/04/2024 10:53 AM [facility] ALT (SGPT) 38 10 - 60 unit/L LAB CHEMISTRY METHOD 06/04/2024 10:53 AM [facility] Alkaline Phosphatase 112 42 - 121 unit/L LAB CHEMISTRY METHOD 06/04/2024 10:53 AM [facility] Total Protein 7.3 6.0 - 8.0 g/dL LAB CHEMISTRY METHOD 06/04/2024 10:53 AM [facility] Albumin 3.7 3.2 - 5.0 g/dL LAB CHEMISTRY METHOD 06/04/2024 10:53 AM [facility] Total Bilirubin 0.4 0.0 - 1.4 mg/dL LAB CHEMISTRY METHOD 06/04/2024 10:53 AM [facility] Blood Venous blood specimen / Unknown Venipuncture / Unknown 06/04/2024 7:34 AM EDT 06/04/2024 9:59 AM EDT us Behzad Conway MD LAB BLOOD ORDERABLES Final Result [facility] [address] [place] [address], * (ABNORMAL) Complete blood count (06/04/2024 7:34 AM EDT) WBC 5.6 4.8 - 10.8 K/mcL LAB HEMETOLOGY METHOD 06/04/2024 10:31 AM EDT [facility] RBC 4.10 3.80 - 4.80 M/mcL LAB HEMETOLOGY METHOD 06/04/2024 10:31 AM EDT [facility] Hemoglobin 12.7 11.5 - 16.0 g/dL LAB HEMETOLOGY METHOD 06/04/2024 10:31 AM [facility] Hematocrit 39.9 35.0 - 47.0 % LAB HEMETOLOGY METHOD 06/04/2024 10:31 AM EDT [facility] MCV 97.8 79.0 - 98.0 FL LAB HEMETOLOGY METHOD 06/04/2024 10:31 AM EDT [facility] MCH 31.1 27.0 - 32.0 pcg LAB HEMETOLOGY METHOD 06/04/2024 10:31 AM [facility] MCHC 31.8(L) 32.0 - 37.0 g/dL LAB HEMETOLOGY METHOD 06/04/2024 10:31 AM EDT [facility] RDW 13.2 11.0 - 15.0 % LAB HEMETOLOGY METHOD 06/04/2024 10:31 AM T [facility] Platelets 200 130 - 400 K/mcL LAB HEMETOLOGY METHOD 06/04/2024 10:31 AM [facility] MPV 11.4(H) 7.0 - 11.0 FL LAB HEMETOLOGY METHOD 06/04/2024 10:31 AM EDT [facility] NRBC 0.0 <1.0 % LAB HEMETOLOGY METHOD 06/04/2024 10:31 AM EDT [facility] NRBC Absolute 0.00 <0.10 K/mcL LAB HEMETOLOGY METHOD 06/04/2024 10:31 AM EDT [facility] Blood Venous blood specimen / Unknown Venipuncture / Unknown 06/04/2024 7:34 AM EDT 06/04/2024 9:59 AM EDT us Behzad Conway MD LAB BLOOD ORDERABLES Final Result [facility] [address] [place] [address], documented in this encounter Visit Diagnoses Diagnosis Anemia, unspecified Type 2 diabetes mellitus without complications (CMS/HCC V24, CMS/HCC V28) documented in this encounter Care Teams Type Casting Machine Operator Relationship Specialty Start Date End Date Gina Fonseca MD [address] [place] [address] PCP - General Internal Medicine 10/16/21 documented as of this encounter
--- OUTSIDE RECORDS SUMMARY | 2024-06-11 11:00 | XMS_ITS | Clinical Summary ---
Author Organization [address] [place] [address] Address [address] [place] [address] Phone Care Team Providers Care Vocational Case Manager Name Role Phone Gina Fonseca MD Primary [...] Encounters Date Type Department Care Team Description 06/10/2024 Lab Requisition [facility] Lab [address] [place] [address] Behzad Conway MD Anemia, unspecified 06/04/2024 Lab Requisition [facility] [address] [place] [address] Behzad Conway MD Anemia, unspecified; Type 2 diabetes mellitus without complications ([facility] V24, [facility] V28) 04/09/2024 1:00 PM EST Office Visit Orthopedic Surgery - [place] [address] [place] [address] Vicente Pearce, DPM Hallux rigidus of [...] right leg BREAST REDUCTION 2009 Bilateral PROCEDURE: DC BREAST REDUCTION Medical History Medical History Date Comments Unspecified essential hypertension DX:Unspecified essential hypertension DM type 2 (diabetes mellitus , type 2) ([facility] V24, [facility] V28) 12/24/2012 DX:DM type 2 (diabetes hailee itus, type 2) ([facility]) Family History Medical History Relation Name Comments Cataracts Father Glaucoma Father Breast cancer Mother 75 Breast cancer Sister 1 70 Blindness Neg Hx Macular degeneration Neg Hx Strabismus Neg Hx Relation Name Status Comments Daughter Alive HTN Father CA and DM Mother 75 Breast cancer Sister [...] 04/09/2024 12:49 PM EST Plan of Treatment Health Maintenance Due Date Last Done Comments [...] 2023 03/08/2022, 01/04/2021, 06/25/2020, Additional history exists Diabetes: Annual Urine Albumin-Creatinine Ratio (uACR) 01/08/2024 08/27/2014 Influenza Vaccine (Season Ended) 2024 11/15/2008 Diabetes: Blood Sugar Control Test (HGBA1C) 12/04/2024 06/04/2024, 03/17/2024, 08/12/2023, Additional history exists Depression Screening 03/17/2025 03/17/2024 Diabetes: Annual GFR (Glomerular Filtration Rate) 06/04/2025 06/04/2024, 11/18/2023, 04/04/2015 Hypertension/CHF/CAD Annual BMP Blood Test 06/04/2025 06/04/2024, 11/18/2023, 04/04/2015 Cholesterol Screening (Lipid Panel) 09/08/2028 09/09/2023, 04/04/2015 [...] age to complete this topic Meningococcal B Vaccine Aged Out No l onger eligible based on patient's age to complete this topic RSV Immunization Patients Under 20 months Aged Out No longer eligible based on patient's age to complete this topic Varicella Vaccines Aged Out No longer eligible based on patient's age to complete this topic Procedures Procedure Name Priority Date/Time Associated Diagnosis Comments HEMOGLOBIN A1C Routine 06/04/2024 7:34 AM EDT Anemia, unspecified Type 2 diabetes mellitus without complications ([facility] V24, [facility] V28) COMPREHENSIVE METABOLIC PANEL Routine 06/04/2024 7:34 AM EDT Anemia, unspecified Type 2 diabetes mellitus without complications (CMS/HCC V24, CMS/HCC V28) COMPLETE BLOOD COUNT Routine 06/04/2024 7:34 AM EDT Anemia, unspecified Type 2 diabetes mellitus without complications (CMS/HCC V24, CMS/HCC V28) SCR MAMMO BI INCL CAD Routine 08/11/2018 1:13 PM EDT Encounter for screening mammogram for malignant neoplasm of breast LIPID PANEL Routine 04/04/2015 URINE ALBUMIN CREATININE RATIO Routine 08/27/2014 HEPATITIS C SCREENING Routine 09/15/2012 from Last 3 Months or Most Recently Relevant to Health Maintenance Results * (ABNORMAL) Complete blood count (06/04/2024 7:34 AM EDT) WBC 5.6 4.8 - 10.8 K/mcL LAB HEMETOLOGY METHOD 06/04/2024 10:31 AM [facility] RBC 4.10 3.80 - 4.80 M/mcL LAB HEMETOLOGY METHOD 06/04/2024 10:31 AM [facility] Hemoglobin 12.7 11.5 - 16.0 g/dL LAB HEMETOLOGY METHOD 06/04/2024 10:31 AM [facility] Hematocrit 39.9 35.0 - 47.0 % LAB HEMETOLOGY METHOD 06/04/2024 10:31 AM [facility] MCV 97.8 79.0 - 98.0 FL LAB HEMETOLOGY METHOD 06/04/2024 10:31 AM [facility] MCH 31.1 27.0 - 32.0 pcg LAB HEMETOLOGY METHOD 06/04/2024 10:31 AM [facility] MCHC 31.8(L) 32.0 - 37.0 g/dL LAB HEMETOLOGY METHOD 06/04/2024 10:31 AM EDT [facility] RDW 13.2 11.0 - 15.0 % LAB HEMETOLOGY METHOD 06/04/2024 10:31 AM EDT [facility] Platelets 200 130 - 400 K/mcL LAB HEMETOLOGY METHOD 06/04/2024 10:31 AM EDT [facility] MPV 11.4(H) 7.0 - 11.0 FL LAB HEMETOLOGY METHOD 06/04/2024 10:31 AM EDT [facility] NRBC 0.0 <1.0 % LAB HEMETOLOGY METHOD 06/04/2024 10:31 AM EDT [facility] NRBC Absolute 0.00 <0.10 K/mcL LAB HEMETOLOGY METHOD 06/04/2024 10:31 AM EDT [facility] Blood Venous blood specimen / Unknown Venipuncture / Unknown 06/04/2024 7:34 AM EDT 06/04/2024 9:59 AM EDT Behzad Conway MD LAB BLOOD ORDERABLES Final Result [facility] [address] [place] [address], * (ABNORMAL) Hemoglobin A1c (06/04/2024 7:34 AM EDT) Hemoglobin A1C 6.6(H) <6.5 % LAB CHEMISTRY METHOD 06/04/2024 12:34 PM EDT [facility] Mean Bld Glu Estim. 143 mg/dL LAB CHEMISTRY METHOD 06/04/2024 12:34 PM EDT [facility] Blood Venous blood specimen / Unknown Venipuncture / Unknown 06/04/2024 7:34 AM EDT 06/04/2024 9:59 AM EDT us Behzad Conway MD LAB BLOOD ORDERABLES Final Result [facility] [address] [place] [address], * (ABNORMAL) Comprehensive metabolic panel (06/04/2024 7:34 AM EDT) Sodium 139 133 - 145 mmol/L LAB CHEMISTRY METHOD 06/04/2024 10:53 AM [facility] Potassium 4.6 3.5 - 5.5 mmol/L LAB CHEMISTRY METHOD 06/04/2024 10:53 AM [facility] Chloride 105 96 - 110 mmol/L LAB CHEMISTRY METHOD 06/04/2024 10:53 AM [facility] CO2 30 21 - 32 mmol/L LAB CHEMISTRY METHOD 06/04/2024 10:53 AM [facility] Anion Gap 4 3 - 11 LAB CHEMISTRY METHOD 06/04/2024 10:53 AM [facility] Glucose 105(H) 70 - 100 mg/dL LAB CHEMISTRY METHOD 06/04/2024 10:53 AM [facility] BUN 18 5 - 25 mg/dL LAB CHEMISTRY METHOD 06/04/2024 10:53 AM [facility] Creatinine 0.74 0.50 - 1.10 mg/dL LAB CHEMISTRY METHOD 06/04/2024 10:53 AM [facility] eGFR 83 >=60 mL/min/1. 73m2 LAB CHEMISTRY METHOD 06/04/2024 10:53 AM [facility] Comment:Calculation based on the??Chronic Kidney Disease Epidemiology Collaboration (CKD-EPI) equation refit??without adjustment for race. BUN/Creatinine Ratio 24.3 LAB CHEMISTRY METHOD 06/04/2024 10:53 AM [facility] Calcium 9.2 8.5 - 10.5 mg/dL LAB CHEMISTRY METHOD 06/04/2024 10:53 AM EDT [facility] AST (SGOT) 37 10 - 42 unit/L LAB CHEMISTRY METHOD 06/04/2024 10:53 AM EDT [facility] ALT (SGPT) 38 10 - 60 unit/L LAB CHEMISTRY METHOD 06/04/2024 10:53 AM EDT [facility] Alkaline Phosphatase 112 42 - 121 unit/L LAB CHEMISTRY METHOD 06/04/2024 10:53 AM EDT [facility] Total Protein 7.3 6.0 - 8.0 g/dL LAB CHEMISTRY METHOD 06/04/2024 10:53 AM EDT [facility] Albumin 3.7 3.2 - 5.0 g/dL LAB CHEMISTRY METHOD 06/04/2024 10:53 AM [facility] Total Bilirubin 0.4 0.0 - 1.4 mg/dL LAB CHEMISTRY METHOD 06/04/2024 10:53 AM EDT [facility] Blood Venous blood specimen / Unknown Venipuncture / Unknown 06/04/2024 7:34 AM EDT 06/04/2024 9:59 AM EDT Behzad Conway MD LAB BLOOD ORDERABLES Final Result Performing Organization Address City/State/[facility] Co de Phone Number [facility] [address] [place] [address], * SCR MAMMO BI INCL CAD (08/11/2018 [...] % Breast cancer risk category Low (<15%) Result [facility] Dickson MD IMG XR PROCEDURES Final Result * (ABNORMAL) Lipid panel (04/04/2015) [facility] LDL/HDL Ratio 4 0 - 4 Triglycerides 223(A) 0 - 150 mg/dL Cholesterol 194 0 - 200 mg/dL HDL 1(A) >=40 mg/dL LDL Cholesterol 96 0 - 100 mg/dL Blood Venous blood specimen / Unknown Result [facility] Provider LAB BLOOD ORDERABLES Lina l Result * Urine Albumin Creatinine Ratio (08/27/2014) [facility] Urine Albumin Creatinine Ratio abstracted Result [facility] Provider HEALTH MAINTENANCE Final Result * Hepatitis C Screening (09/15/2012) [facility] Hepatitis C Screening abstracted Result [facility] Grace HERNANDEZ HEALTH MAINTENANCE Final Result from Last 3 Months or Most Recently Relevant to Health Maintenance Insurance [employer] MED[employer]ARE Member Subscriber Plan / Payer (Ef fective 2023-Present) Name:Azeb Kennedy Relation to Subscriber:Self Name:Azeb Kennedy Payer ID:[id number] Group ID:[id number] Type:Not on file Address: [place] [address] [address] [phone] Care Teams Vocational Case Manager Relationship Specialty Start Date End Date Gina Fonseca MD [address] [place], [place] PCP - General Internal Medicine 10/16/21
--- OUTSIDE RECORDS SUMMARY | 2024-06-11 11:00 | XMS_ITS | Patient Health Record ---
Author Organization [facility] Address [address] [place] [address] Care Team Providers Care Credit Risk Management Director Name Role Phone Name Hill HERNANDEZ Primary Care Provider James Kaur [phone] Allergies No Known Allergies Reason For Referral No Information Medications Medication SIG (Take, Route, Frequency, Duration) Notes Start Date End Date Status Amitriptyline HCl 25 MG 1 tablet at bedt juan josé Orally Once a day Active Tylenol 8 Hour Arthritis Pain 650 MG 2 tablets as needed Orally every 8 hrs Active Omeprazole 20 MG TAKE 1 CAPSULE BY [facility] DAILY IN THE MORNING Oral [...] Problem Status W/U Status Risk Notes Problem 468680067 Colon cancer screening (Z12.11) Active confirmed Problem 136764909 Gastroesophageal reflux disease without esophagitis (K21.9) Active confirmed Problem 454991572 Gastroesophageal reflux disease, esophagitis presence not specified (K21.9) Active confirmed Problem 12592140 Constipation, unspecified constipation type (K59.00) Active confirmed Encounters Encounter Location Date Provider Diagnosis [facility] [address] [place] [phone] 06/09/2024 James Easton [facility] [address] [place] [phone] 05/21/2024 James Easton Plan Of Treatment Future Test Test Name Order Date COLONOSCOPY 12/02/2013 Insurance Providers Payer Name Payer Address Payer Phone Subscriber Number Group Number Insured Name Patient Relationship to Insured Coverage Start Date Coverage End Date [facility] [address] [place] [phone] [id number] RAFFAELE CHUNG Self - patient is the insured Medical (General) History Medical History History ICD Code Tubular adenomas removed in 2004. She had negative followup colonoscopies in 06/2008 and in 02/2014. Diverticulosis GERD--EGD in 2004-small HH--no sig. esop hagitis nor Mccall's Denies [place],CVA,Lung disease,renal disease NIDDM Surgical History Surgery Date(Month/Year) Cholecystectomy Tubal ligation Hysterectomy with ? removal of one ovary Breast reduction Left foot 08/2021
--- OUTSIDE RECORDS SUMMARY | 2024-06-11 11:00 | XMS_ITS ---
Author Organization [facility] Address [address] [place] [address] Care Team Providers Care Chemistry Technical Officer Name Role Phone Name Hill HERNANDEZ Primary Care Provider James Kaur [phone] REASON FOR VISIT PLEASE VERIFY INSURANCE Encounters Encounter Location Date Provider Diagnosis [facility] [address] [place] [address] 05/21/2024 James Easton Plan Of Treatment No Information Progress Notes * CHUNGRAFFAELE EDOB:[birth year] (79 yo F)Acc No.[id number]:05/21/2024 Patient:?RAFFAELE CHUNG :1945???Age:79 Y???Sex:Female Address:[address], [place] [address] * true * Date:? Generated for Tejinder erickson/Andres/eTransmitting on:?06/11/2024 11:00 AM EDT
--- OUTSIDE RECORDS SUMMARY | 2024-06-11 11:01 | XMS_ITS ---
Author Organization [facility] Address [address] [place] [phone] Care Team Providers Care Forming Mill Operator Name Role Phone Name Hill HERNANDEZ Primary Care Provider James Kaur [facility] [phone] REASON FOR VISIT Patient presents today for an upper endo Encounters Encounter Location Date Provider Diagnosis [facility] [address] [place] [phone] 06/09/2024 James Easton Plan Of Treatment No Information Progress Notes * RAFFAELE CHUNG EDOB:[birth year] (79 yo F)Acc No.[id number]:06/09/2024 Progress Notes Patient:?RAFFAELE CHUNG Provider:?James Easton MD :1945???Age:79 Y???Sex:Female D ate:06/09/2024 Address:[address] [place] [address] Pcp:Hill Dickson MD Subjective: * Chief Complaints: * ???1. Patient presents today for an upper endo. * Medical History:? Objective: * Vitals:? Assessment: Plan: * Treatment: * * The named appointment provid er may or may not be the originator of this progress note, and it is not deemed complete until electronically signed by the appointment provider. Sign off status: Pending * Provider:?James Easton MD Date:? 025 Generated for Shanei ng/Fajamilg/eTransmitting on:?06/11/2024 11:00 AM EDT
[2024-06-11 12:16] LABS: Alanine Aminotransferase 34 U/L (0-31); Albumin Level 4.3 g/dL (3.5-5.0); Alkaline Phosphatase 91 U/L (39-117); Anion Gap 13 (12-20); Aspartate Amino Transferase 53 U/L (5-31); Bilirubin Total 0.4 mg/dL (0.0-1.0); Blood Urea Nitrogen 18 mg/dL (9-16); Carbon Dioxide 26 mmol/L (22-29); Chloride 104 mmol/L (96-108); Cholesterol 195 mg/dL (<200); Estimated Glomerular Filt Rate > 60; Glucose Random 123 mg/dL (60-115); HDL Cholesterol 52 mg/dL (>40); LDL Cholesterol Calculated 115 mg/dL (<100); Potassium 4.3 mmol/L (3.3-5.1); Sodium 139 mmol/L (135-145); Total Protein 7.7 g/dL (6.5-8.0); Triglycerides 144 mg/dL (<150)
[2024-06-11 12:18] LABS: Creatinine Urine 93.85 mg/dL; Microalbum/Creatinine Ratio Ur 26.6 ug/mg cr (<30)
== END 2024-06-11 09:36 | disposition home or self-care (01) ==
LOC: HO.HHCL 09:35
PROVIDERS: Visit Provider Internal Medicine Geriatric Medicine
DX: E11.69 Type 2 diabetes mellitus with other specified complication (principal)
CPT/HCPCS: 36415; 80053; 80061; 82043; 82570

== ENCOUNTER 2024-07-14 13:55 | Outpatient (REF) | payer OTHER, SELFPAY ==
--- OUTSIDE RECORDS SUMMARY | 2024-07-14 15:17 | XMS_ITS ---
Author Organization [facility] Address [address] [place] [address] Care Team Providers Care Bid Writer Name Role Phone Name Hill HERNANDEZ Primary Care Provider James Kaur [facility] [phone] REASON FOR VISIT Patient presents today for an upper endo Encounters Encounter Location Date Provider Diagnosis [facility] [address] [place] [phone] 06/09/2024 James Easton Plan Of Treatment No Information Progress Notes * RAFFAELE CHUNG EDOB:[birth year] (79 yo F)Acc No.[id number]:06/09/2024 Progress Notes Patient:?RAFFAELE CHUNG Provider:?James Easton MD :1945???Age:79 Y???Sex:Female D ate:06/09/2024 Address:[address] [place] [address] Pcp:Hill Dickson MD Subjective: * Chief Complaints: [...] MD Date:? 025 Generated for Shanei ng/Fajamilg/eTransmitting on:?07/14/2024 03:17 PM EDT
--- OUTSIDE RECORDS SUMMARY | 2024-07-14 15:17 | XMS_ITS ---
Author Name MS. Hubert Sen APRN Address [address] [place] [address] Phone [phone] [facility] Care Team Providers Care Fats And Oils Loader Name Role Phone Ruth Sen Unavailable [phone] Reason for Referral Not Available Allergies, adverse [...] 2021-12-05 No Data Available OneTouch Delica Plus [id number] Miscellaneous TEST BLOOD SUGAR THREE TIMES DAILY [...] (do not use for phone, instead use 30220-79) [facility] Type 2 diabetes mellitus wit h other specified complicationHyperlipidemia, unspecifiedEssential (primary) hypertensionMajor depressive disorder, recurrent, in remission, unspecifiedPersonal history of (healed) traumatic fracture New patient,40-59min; chronic exacerbation, 2 stable chronic or 1 acute illness add add modifier 95 for video (do not use for phone, instead use 25800-08) [facility] [place] New patient,40-59min; chronic exacerbation, 2 stable chronic or 1 acute illness add add modifier 95 for video (do not use for phone, instead use 31369-87) [facility] [place] New patient,40-59min; chronic exacerbation, 2 stable chronic or 1 acute illness add add modifier 95 for video (do not use for phone, instead use 81376-52) [facility] [place] New patient,40-59min; chronic exacerbation, 2 stable chronic or 1 acute illness add add modifier 95 for video (do not use for phone, instead use 65904-16) [facility] [place] New patient,40-59min; chronic exacerbation, 2 stable chronic or 1 acute illness add add modifier 95 for video (do not use for phone, instead use 68437-06) [facility] [place] New patient,40-59min; chronic exacerbation, 2 stable chronic or 1 acute illness add add modifier 95 for video (do not use for phone, instead use 18669-68) [facility] [place]/20[place] New patient,40-59min; chronic exacerbation, 2 stable chronic or 1 acute illness add add modifier 95 for video (do not use for phone, instead use 51855-66) [facility] [place]2022 Vital Signs Date of Collection Vitals 2022-06-04 10:06:44 Height - 157.48 cmWe ight - 68.04 kgBody Mass Index (BMI) - 27.44 kg/m2 Social History Social History Social History Observation Description Effec tive Time Current Smoking Status Never smoker 2024-06-26 0 Sex Female History of Procedures Procedures Service Procedure code Service date Servicing provider Phone# New patient,40-59min; chronic exacerbation, 2 stable chronic or 1 acute illness add add modifier 95 for video (do not use for phone, instead use 78086-85) [id number] 2022-06-04 No Data Available No Data Availa [...] ilable Functional Status Functional Category Effective Dates PIPE LINE MAINTENANCE SUPERVISOR assists with cooking, cl eaning and laundry. [...]
--- OUTSIDE RECORDS SUMMARY | 2024-07-14 15:18 | XMS_ITS | Encounter Summary ---
Author Organization [employer] Address [address] [facility] 7t [place] [address] Care Team Providers Care Crayon Sorting Machine Feeder Name Role Phone Name, Hill HERNANDEZ Primary Care Provider [phone] Encounter Details Date Type Department Care Team (Latest Contact Info) Description 04/15/2018 Abstract [facility] CONVERSIONS Dental, Provider, DDS Social History Tobacco [...] Care Team (Late st Contact Info) Description 07/16/2024 1:15 PM EDT Office Visit [facility] OPTOMETRY [address] [place] [address] Ame Dias, OD [address] [place] [address] 10/07/2024 11:30 AM EDT Office Visit [facility] MEDICINE 230 [place] [address] Name, MD Hill [address] [place] [address] documented as of this encounter Visit Diagnoses Not on filedocumented in this encounter Care Teams Crayon Sorting Machine Feeder Relationship Specialty Start Date End Date Name, MD Hill [address] [place] [address] PCP - General Family Medicine 03/15/15 documented as of this encounter
--- OUTSIDE RECORDS SUMMARY | 2024-07-14 15:18 | XMS_ITS ---
Author Organization [facility] Address [address] [place] [address] Care Team Providers Care Professor Of Chemical Engineering Name Role Phone Name Hill HERNANDEZ Primary Care Provider James Kaur [phone] REASON FOR VISIT PLEASE VERIFY INSURANCE Encounters Encounter Location Date Provider Diagnosis [facility] [address] [place] [address] 05/21/2024 James Easton Plan Of Treatment No Information Progress Notes * CHUNG RAFFAELE EDOB:[birth year] (79 yo F)Acc No.[id number]:05/21/2024 Patient:?RAFFAELE CHUNG :1945???Age:79 Y???Sex:Female Address:[address] [place] [address] * true * Date:? Generated for Tejinder erickson/Andres/eTransmitting on:?07/14/2024 03:18 PM EDT
--- OUTSIDE RECORDS SUMMARY | 2024-07-14 15:18 | XMS_ITS | Encounter Summary ---
Author Organization [employer] Address [address] [facility] 7t [place] [address] Care Team Providers Care Radiagraph Operator Name Role Phone Name, Hill HERNANDEZ Primary Care Provider [phone] Reason for Visit * Reason Onset Date Comments Pre Op 10/02/2023 Encounter Details Date Type Department Care Team ([facility] st Contact Info) Description 10/02/2023 Telephone [facility] MEDICINE [address] [place], [place] [phone] Name, MD Hill [address] [place] [address] Pre Op Social History Tobacco Use Types [...] No EKG: No Surgeon's name: Tomás Hopkins [facility] name: [facility] Surgeon's office number: [phone] Surgeon's office fax number: [phone] Contact name: Yohana documented in this encounter Plan of Treatment Upcoming Encounters Date Type Department Care Team (Late st Contact Info) Description 07/16/2024 1:15 PM EDT Office Visit [facility] OPTOMETRY [address] [place] [address] Ame Dias, FLORENCIA [address] [place] [address] 10/07/2024 11:30 AM EDT Office Visit [facility] MEDICINE [address] [place] [address] Name, MD Hill [address] [place] [address] documented as of this encounter Visit Diagnoses Not on filedocumented in this encounter Additional Health Concerns Assessment Noted Time PHQ-9 Depression Total Score: 12 024 1:00 PM EDT documented as of this encounter Care Teams Radiagraph Operator Relationship Specialty Start Date End Date Name, MD Hill [address] [place] [address] PCP - General Family Medicine 03/15/15 documented as of this encounter
--- OUTSIDE RECORDS SUMMARY | 2024-07-14 15:18 | XMS_ITS | Encounter Summary ---
Author Organization [employer] Address [address] [facility] 7t [place] [address] Care Team Providers Care Optimization Consultant Name Role Phone Name, Hill HERNANDEZ Primary Care Provider Encounter Details Date Type Department Care Team (Latest Contact Info) Description 01/06/2020 Abstract [facility] CONVERSIONS Dental, Provider, DDS Social [...] Description 07/16/2024 1:15 PM EDT Office Visit [facility] OPTOMETRY [address] [place] [address] Ame Dias, OD [address] [place] [address] 10/07/2024 11:30 AM EDT Office Visit [facility] MEDICINE 230 [place] [address] Name, MD Hill [address] [place] [address] documented as of this encounter Visit Diagnoses Not on filedocumented in this encounter Care Teams Optimization Consultant Relationship Specialty Start Date End Date Name, MD Hill [address] [place] [address] PCP - General Family Medicine 03/15/15 documented as of this encounter
--- OUTSIDE RECORDS SUMMARY | 2024-07-14 15:18 | XMS_ITS | Encounter Summary ---
Author Organization [employer] Address [address] [facility] 7t [place] [address] Care Team Providers Care Dairy Machine Operator Farmworker Name Role Phone Name, Hill HERNANDEZ Primary Care Provider [phone] Encounter Details Date Type Department Care Team (Latest Contact Info) Description 07/13/2024 Travel Social History Tobacco Use Types Packs/Day Years [...] getting things needed for daily living? No 06/16/2024 Utilities Answer Date Recorded In the past 12 months, has t he electric, gas, oil or water company threatened to shut off services in your home? No 03/17/2024 Depression Answer Date Recorded Patient Health Questionnaire-2 Score 1 03/17/2024 Internet Access Answer Date Recorded Internet Access Q1 Yes 06/16/2024 Internet Access Q2 I do not want or need it 05/27 Comments No Sex and Gender Information Value [...] Description 07/16/2024 1:15 PM EDT Office Visit [facility] OPTOMETRY [address] [place] [address] Ame Dias, OD [address] [place] [address] 10/07/2024 11:30 AM EDT Office Visit [facility] MEDICINE [address] [place] [address] NameHill MD 230 [place] [address] documented as of this encounter Visit Diagnoses Not on filedocumented in this encounter Additional Health Concerns Assessment Noted Time PHQ-9 Depression Total Score: 4 03/17/19 25 2:14 PM EST documented as of this encounter Care Teams Dairy Machine Operator Farmworker Relationship Specialty Start Date End Date NameHill MD 230 [place] [address] PCP - General Family Medicine 03/15/15 documented as of this encounter
--- OUTSIDE RECORDS SUMMARY | 2024-07-14 15:18 | XMS_ITS | Encounter Summary ---
Author Organization [employer] Address [address] [facility] 7t [place] [address] Care Team Providers Care Boat Hoist Operator Helper Name Role Phone Name, Hill HERNANDEZ Primary Care Provider [phone] Encounter Details Date Type Department Care Team (Latest Contact Info) Description 07/26/2021 Abstract [facility] CONVERSIONS Dental, Provider, DDS Social [...] Description 07/16/2024 1:15 PM EDT Office Visit [facility] OPTOMETRY [address] [place] [address] Ame Dias, OD [address] [place] [address] 10/07/2024 11:30 AM EDT Office Visit [facility] MEDICINE 230 [place] [address] Name, MD Hill [address] [place] [address] documented as of this encounter Visit Diagnoses Not on filedocumented in this encounter Care Teams Boat Hoist Operator Helper Relationship Specialty Start Date End Date Name, MD Hill [address] [place] [address] PCP - General Family Medicine 03/15/15 documented as of this encounter
--- OUTSIDE RECORDS SUMMARY | 2024-07-14 15:18 | XMS_ITS | Encounter Summary ---
Author Organization [employer] Address [address] [facility] 7t [place] [address] Care Team Providers Care Garment Alteration Examiner Name Role Phone Name, Hill HERNANDEZ Primary Care Provider [phone] Reason for Visit * Reason Comments Acupuncture Encounter Details Date Type Department Care Team ([facility] st Contact Info) Description 07/14/2024 10:15 AM EDT Office Visit [facility] MEDICINE [address] [place], [place] [phone] Samia Levy MD [address] [place] [address] Acute pain of right shoulder due to trauma (Primary Dx) Social History Tobacco Use Types Packs/Day Years [...] AM EDT documented as of this encounter Progress Notes * Samia Levy MD - 07/14/2024 10:15 AM EDT Subjective Patient ID: Azeb Kennedy is a 79 y.o. female who presents for Acupuncture. Azeb is here for acupuncture treatment #2 for right arm pain s/p fall last week. She has not noticed any change in her pain level. Review of Systems Psychiatric/Behavioral: Negative for dysphoric mood. The patient is not nervous/anxious. Objective Physical Exam Constitutional: Appearance: Normal appearance. Skin: General: Skin is warm and dry. Neurological: Mental Status: She is alert and oriented to person, place, and time. Assessment/Plan Diagnoses and all orders for this visit: Acute pain of right shoulder due to trauma Written consent obtained for ear acupuncture. Ears prepped with alcohol pad. Five ear points needled bilaterally: Sympathetic, Sierra Men, Kidney, Liver and Lung. Treatment duration: 30 minutes. Good hemostasis. Patient tolerated well. Follow up weekly for repeat acupuncture treatments as desired. documented in this encounter Plan of Treatment Upcoming Encounters Date Type Department Care Team (Late st Contact Info) Description 07/16/2024 1:15 PM EDT Office Visit [facility] OPTOMETRY [address] [place] [address] Ame Dias OD [address] [place] [address] 10/07/2024 11:30 AM EDT Office Visit [facility] MEDICINE [address] [place] [address] Name, MD Hill [address] [place] [address] documented as of this encounter Visit Diagnoses Diagnosis Acute pain of right shoulder due to trauma- Primary documented in this encounter Additional Health Concerns Assessment Noted Time PHQ-9 Depression Total Score: 4 03/17/19 25 2:14 PM EST documented as of this encounter Care Teams Garment Alteration Examiner Relationship Specialty Start Date End Date Name, MD Hill [address] [place] [address] PCP - General Family Medicine 03/15/15 documented as of this encounter
--- OUTSIDE RECORDS SUMMARY | 2024-07-14 15:18 | XMS_ITS | Encounter Summary ---
Author Organization [employer] Address [address] [facility] 7t [place] [address] Care Team Providers Care Tender Coordinator Name Role Phone Name, Hill HERNANDEZ Primary Care Provider [phone] Reason for Visit * Reason Onset Date Comments Call Back Request 06/18/2024 Encounter Details Date Type Department Care Team ([facility] st Contact Info) Description 06/18/2024 Telephone [facility] [address] [place], [place] [phone] Name, MD Hill [address] [place] [address] Call Back Request Social History Tobacco Use [...] encounter Miscellaneous Notes * Telephone Encounter - Addis Mary RN - 06/19/2024 9:19 AM EDT TC placed to Nyasia a pharmacist with [facility] to inquire about the alternatives to the prescribed ramelteon (Rozerem) 8 MG medication. Per [facility], this medication is not covered by the pt insurance. The alternatives that can be prescribed include Doxepin (no PA required), Dayvigo (no PA required) and Tasimalteon (PA required). This information will be forwarded to Dr. Dickson for review. * Telephone Encounter - Shelley Ledesma - 06/18/2024 3:17 PM EDT Tc from [place] with [facility] regarding ramelteon (Rozerem) 8 MG tablet requesting a call back from nurses to discuss alternative med. [phone] documented in this encounter Plan of Treatment Upcoming Encounters Date Type Department Care Team (Late st Contact Info) Description 07/16/2024 1:15 PM EDT Office Visit [facility] OPTOMETRY [address] [place] [address] Tarka, Ame, OD [address] [place] [address] 10/07/2024 11:30 AM EDT Office Visit [facility] MEDICINE [address] [place] [address] Name, MD Hill [address] [place] [address] documented as of this encounter Visit Diagnoses Not on filedocumented in this encounter Additional Health Concerns Assessment Noted Time PHQ-9 Depression Total Score: 4 03/17/19 25 2:14 PM EST documented as of this encounter Care Teams Tender Coordinator Relationship Specialty Start Date End Date Name, [place] [address] PCP - General Family Medicine 03/15/15 documented as of this encounter
--- OUTSIDE RECORDS SUMMARY | 2024-07-14 15:18 | XMS_ITS | Encounter Summary ---
Author Organization [employer] Address [address] [facility] 7t [place] [address] Care Team Providers Care Farm Equipment Assembler Name Role Phone Name, Hill HERNANDEZ Primary Care Provider [phone] Encounter Details Date Type Department Care Team ([facility] Contact Info) Description 03/26/2022 Orders Only [facility] MEDICINE [address] [place] [phone] Jane Oneill LPN Social History Tobacco Use [...] Department Care Team (Late Contact Info) Description 07/16/2024 1:15 PM EDT Office Visit [facility] OPTOMETRY [address] [place] [address] Ame Dias OD [address] [place] [address] 10/07/2024 11:30 AM EDT Office Visit [facility] MEDICINE [address] [place] [address] Name, MD Hill [address] [place] [address] documented as of this encounter Visit Diagnoses Not on filedocumented in this encounter Care Teams Farm Equipment Assembler Relationship Specialty Start Date End Date Name, MD Hill [address] [place] [address] PCP - General Family Medicine 03/15/15 documented as of this encounter
--- OUTSIDE RECORDS SUMMARY | 2024-07-14 15:18 | XMS_ITS | Encounter Summary ---
Author Organization [employer] Address [address] [facility] 7t [place] [address] Care Team Providers Care Departmental Buyer Name Role Phone Name, Hill HERNANDEZ Primary Care Provider [phone] Encounter Details Date Type Department Care Team (Latest Contact Info) Description 04/21/2019 Abstract [facility] CONVERSIONS Dental, Provider, DDS Social [...] Description 07/16/2024 1:15 PM EDT Office Visit [facility] OPTOMETRY [address] [place] [address] Ame Dias, OD [address] [place] [address] 10/07/2024 11:30 AM EDT Office Visit [facility] MEDICINE 230 [place] [address] Name, MD Hill [address] [place] [address] documented as of this encounter Visit Diagnoses Not on filedocumented in this encounter Care Teams Departmental Buyer Relationship Specialty Start Date End Date Name, MD Hill [address] [place] [address] PCP - General Family Medicine 03/15/15 documented as of this encounter
--- OUTSIDE RECORDS SUMMARY | 2024-07-14 15:18 | XMS_ITS | Encounter Summary ---
Author Organization [facility] Address [address] [place] [address] Care Team Providers Care Marine Equipment Sales Engineer Name Role Phone Gina Fonseca MD Primary Care Provider [phone] Encounter Details Date Type Department Care Team (Late st Contact Info) Description 06/04/2024 Lab Requisition [facility] - Main Lab [address] [facility] [place] [address] Behzad Conway MD [address] [place] [phone] Anemia, unspecified; Type 2 diabetes mellitus without [...] (ABNORMAL) Hemoglobin A1c (06/04/2024 7:34 AM EDT) [facility] Hemoglobin A1C 6.6(H) <6.5 % LAB CHEMISTRY METHOD 06/04/2024 12:34 PM EDT [facility] Mean Bld Glu Estim. 143 mg/dL LAB CHEMISTRY METHOD 06/04/2024 12:34 PM EDT [facility] Blood Venous blood specimen / Unknown Venipuncture / Unknown 06/04/2024 7:34 AM EDT 06/04/2024 9:59 AM EDT Behzad Conway MD LAB BLOOD ORDERABLES Final Result [facility] [address] [place] [address], * (ABNORMAL) Comprehensive metabolic panel (06/04/2024 7:34 AM EDT) [facility] Sodium 139 133 - 145 mmol/L LAB CHEMISTRY METHOD 06/04/2024 10:53 AM [facility] Potassium 4.6 3.5 - 5.5 mmol/L LAB CHEMISTRY METHOD 06/04/2024 10:53 AM [facility] Chloride 105 96 - 110 mmol/L LAB CHEMISTRY METHOD 06/04/2024 10:53 AM T [facility] CO2 30 21 - 32 mmol/L LAB CHEMISTRY METHOD 06/04/2024 10:53 AM [facility] Anion Gap 4 3 - 11 LAB CHEMISTRY METHOD 06/04/2024 10:53 AM [facility] Glucose 105(H) 70 - 100 mg/dL LAB CHEMISTRY METHOD 06/04/2024 10:53 AM [facility] BUN 18 5 - 25 mg/dL LAB CHEMISTRY METHOD 06/04/2024 10:53 AM [facility] Creatinine 0.74 0.50 - 1.10 mg/dL LAB CHEMISTRY METHOD 06/04/2024 10:53 AM [facility] eGFR 83 >=60 mL/min/1. 73m2 LAB CHEMISTRY METHOD 06/04/2024 10:53 AM [facility] Comment:Calculation based on the??Chronic Kidney Disease Epidemiology Collaboration (CKD-EPI) equation refit??without adjustment for race. BUN/Creatinine Ratio 24.3 LAB CHEMISTRY METHOD 06/04/2024 10:53 AM [facility] Calcium 9.2 8.5 - 10.5 mg/dL LAB CHEMISTRY METHOD 06/04/2024 10:53 AM [facility] AST (SGOT) 37 10 - 42 unit/L LAB CHEMISTRY METHOD 06/04/2024 10:53 AM [facility] ALT (SGPT) 38 10 - 60 unit/L LAB CHEMISTRY METHOD 06/04/2024 10:53 AM [facility] Alkaline Phosphatase 112 42 - 121 unit/L LAB CHEMISTRY METHOD 06/04/2024 10:53 AM [facility] Total Protein 7.3 6.0 - 8.0 g/dL LAB CHEMISTRY METHOD 06/04/2024 10:53 AM [facility] Albumin 3.7 3.2 - 5.0 g/dL LAB CHEMISTRY METHOD 06/04/2024 10:53 AM [facility] Total Bilirubin 0.4 0.0 - 1.4 mg/dL LAB CHEMISTRY METHOD 06/04/2024 10:53 AM [facility] Blood Venous blood specimen / Unknown Venipuncture / Unknown 06/04/2024 7:34 AM EDT 06/04/2024 9:59 AM EDT us Behzad Conway MD LAB BLOOD ORDERABLES Final Result [facility] [address] [place] [address], * (ABNORMAL) Complete blood count (06/04/2024 7:34 AM EDT) WBC 5.6 4.8 - 10.8 K/mcL LAB HEMETOLOGY METHOD 06/04/2024 10:31 AM EDT [facility] RBC 4.10 3.80 - 4.80 M/mcL LAB HEMETOLOGY METHOD 06/04/2024 10:31 AM EDT [facility] Hemoglobin 12.7 11.5 - 16.0 g/dL LAB HEMETOLOGY METHOD 06/04/2024 10:31 AM [facility] Hematocrit 39.9 35.0 - 47.0 % LAB HEMETOLOGY METHOD 06/04/2024 10:31 AM EDT [facility] MCV 97.8 79.0 - 98.0 FL LAB HEMETOLOGY METHOD 06/04/2024 10:31 AM EDT [facility] MCH 31.1 27.0 - 32.0 pcg LAB HEMETOLOGY METHOD 06/04/2024 10:31 AM [facility] MCHC 31.8(L) 32.0 - 37.0 g/dL LAB HEMETOLOGY METHOD 06/04/2024 10:31 AM EDT [facility] RDW 13.2 11.0 - 15.0 % LAB HEMETOLOGY METHOD 06/04/2024 10:31 AM T [facility] Platelets 200 130 - 400 K/mcL LAB HEMETOLOGY METHOD 06/04/2024 10:31 AM [facility] MPV 11.4(H) 7.0 - 11.0 FL LAB HEMETOLOGY METHOD 06/04/2024 10:31 AM EDT [facility] NRBC 0.0 <1.0 % LAB HEMETOLOGY METHOD 06/04/2024 10:31 AM EDT [facility] NRBC Absolute 0.00 <0.10 K/mcL LAB HEMETOLOGY METHOD 06/04/2024 10:31 AM EDT [facility] Blood Venous blood specimen / Unknown Venipuncture / Unknown 06/04/2024 7:34 AM EDT 06/04/2024 9:59 AM EDT us Behzad Conway MD LAB BLOOD ORDERABLES Final Result [facility] [address] [place] [address], documented in this encounter Visit Diagnoses Diagnosis Anemia, unspecified Type 2 diabetes mellitus without complications (CMS/HCC V24, CMS/HCC V28) documented in this encounter Care Teams Marine Equipment Sales Engineer Relationship Specialty Start Date End Date Gina Fonseca MD [address] [place] [address] PCP - General Internal Medicine 10/16/21 documented as of this encounter
--- OUTSIDE RECORDS SUMMARY | 2024-07-14 15:18 | XMS_ITS | Encounter Summary ---
Author Organization [employer] Address [address] [place] [address] Care Team Providers Care Expressive Therapist Name Role Phone Name, Hill HERNANDEZ Primary Care Provider [phone] Encounter Details Date Type Department Care Team (Late st Contact Info) Description 07/14/2024 9:00 AM EDT Office Visit [facility] [address] [place], [place] [phone] Vaishali Gee MD [address] [place], [place] [phone] Acute right eye pain (Primary Dx) Social History Tobacco Use Types [...] Sign Reading Time Taken Comments Blood Pressure 139/87 07/14/2024 9:09 AM EDT Pulse 74 07/14/2024 9:09 AM EDT Temperature 36.8 ??C (98.3 ??F) 07/14/2024 9:09 AM ED T Respiratory Rate 20 07/14/2024 9:09 AM EDT Oxygen Saturation 96% 07/14/2024 9:09 AM EDT Inhaled Oxygen Concentration - - Weight 71.2 kg (157 lb) 07/14/2024 9:09 AM EDT Height 157.5 cm (5' 2 ) 07/14/2024 9:09 AM EDT Body Mass Index 28.72 07/14/2024 9:09 AM EDT documented in this encounter Progress Notes * Vaishali Gee MD - 07/14/2024 9:00 AM EDT Images from the original note were not included. Subjective Patient ID: Azeb Kennedy is a 79 y.o. female with past medical history cataracts, atopic conjunctivitis, choric headaches,migraines, and type 2 diabetes who presents to walk in clinic for right eye pain with headache. Pt reports pain in right eyelid that started yesterday with associated headache in the glabellar region. She reports pain is 4/10 and over her eyelid. Denies trauma or foreign body. No temporal pain.No rash. She has had one of 3 shingles vaccines. Denies current seasonal allergies. See ROS. Review of Systems Constitutional: Negative for fever. HENT: Negative for congestion, rhinorrhea, sinus pressure and sinus pain. Eyes: Positive for pain. Negative for photophobia, discharge, redness, itching and visual disturbance. Objective Visit Vitals BP 139/87 (BP Location: Left arm, Patient Position: Sitting, BP Cuff Size: Adult) Pulse 74 Temp 98.3 ??F (36.8 ??C) (Oral) Resp 20 Body mass index is 28.72 kg/m??. Physical Exam Constitutional: Appearance: Normal appearance. HENT: Head: Normocephalic. Mouth/Throat: Mouth: Mucous membranes are dry. Eyes: General: Vision grossly intact. Right eye: No foreign body or discharge. Left eye: No foreign body or discharge. Extraocular Movements: Extraocular movements intact. Right eye: Normal extraocular motion. Left eye: Normal extraocular motion. Conjunctiva/sclera: Conjunctivae normal. Right eye: Right conjunctiva is not injected. No exudate or hemorrhage. Left eye: Left conjunctiva is not injected. No exudate or hemorrhage. Comments: Tenderness and mild swelling at the area noted above. NO rash or lesaions. Neurological: Mental Status: She is alert. Problem List Items Addressed This Visit Acute right eye pain - Primary 24 hours of acute tenderness of right upper inner eye lid without redness, swelling or seasonal allergies. Differential includes early shingles, less likely early cellulitis, allergic dermatitis vs other. Viral culture of skin obtained but no vesicles to swab. -start Valacyclovir 1 gram tid for 7 days 07/14/24 -acetaminophen prn pain -Eye apt for 2 days -ER precarious discussed Relevant Medications valACYclovir (Valtrex) 1 g tablet acetaminophen (Tylenol) 325 MG capsule Other Relevant Orders Herpes Simplex Virus Culture with Reflex Typing [facility] Eye On at 1:15. documented in this encounter Miscellaneous Notes * Assessment & Plan Note - Vaishali Gee MD - 07/14/2024 9:43 AM EDT Associated Problem(s): Acute right eye pain 24 hours of acute tenderness of right upper inner eye lid without redness, swelling or seasonal allergies. Differential includes early shingles, less likely early cellulitis, allergic dermatitis vs other. Viral culture of skin obtained but no vesicles to swab. -start Valacyclovir 1 gram tid for 7 days 07/14/24 -acetaminophen prn pain -Eye apt for 2 days -ER precarious discussed documented in this encounter Plan of Treatment Upcoming Encounters Date Type Department Care Team (Late st Contact Info) Description 07/16/2024 1:15 PM EDT Office Visit [facility] [address] [place] [address] Ame Dias, OD [address] [place] [address] 10/07/2024 11:30 AM EDT Office Visit [facility] [address] [place] [address] NameHill MD [address] [place] [phone] Scheduled Orders Name Type Priority Associated Diagnoses Orde r Schedule Herpes Simplex Virus Culture with Reflex Typing Microbiology Routine Acute right eye pain Ordered: 07/14/2024 documented as of this encounter Visit Diagnoses Diagnosis Acute right eye pain- Primary documented in this encounter Additional Health Concerns Assessment Noted Time PHQ-9 Depression Total Score: 4 03/17/19 25 2:14 PM EST documented as of this encounter Care Teams Expressive Therapist Relationship Specialty Start Date End Date NameHill MD [address] [place] [phone] PCP - General Family Medicine 03/15/15 documented as of this encounter
--- OUTSIDE RECORDS SUMMARY | 2024-07-14 15:18 | XMS_ITS | Encounter Summary ---
Author Organization [employer] Address [address] [facility] 7[address] [place] [address] Care Team Providers Care Interactive Account Manager Name Role Phone Name, Hill HERNANDEZ Primary Care Provider [phone] Encounter Details Date Type Department Care Team (Latest Contact Info) Description 07/14/2024 Travel Social History Tobacco Use Types Packs/Day [...] Description 07/16/2024 1:15 PM EDT Office Visit [facility] [address] [place] [address] Ame Dias, OD [address] [place] [address] 10/07/2024 11:30 AM EDT Office Visit [facility] [address] [place] [address] NameHill MD [address] [place] [address] documented as of this encounter Visit Diagnoses Not on filedocumented in this encounter Additional Health Concerns Assessment Noted Time PHQ-9 Depression Total Score: 4 03/17/19 25 2:14 PM EST documented as of this encounter Care Teams Interactive Account Manager Relationship Specialty Start Date End Date NameiHll MD [address] [place] [address] PCP - General Family Medicine 03/15/15 documented as of this encounter
--- OUTSIDE RECORDS SUMMARY | 2024-07-14 15:18 | XMS_ITS | Encounter Summary ---
Author Organization [employer] Address [address] [facility] 7[address] [place] [address] Care Team Providers Care Repack Room Worker Name Role Phone Name, Hill HERNANDEZ Primary Care Provider [phone] Reason for Visit * Reason Comments Med Refill Encounter Details Date Type Department Care Team ([facility] st Contact Info) Description 07/02/2024 Refill [facility] [address] [place], [place] [phone] Name, MD Hill [address] [place] [address] Social History Tobacco Use Types Packs/Day Years [...] Description 07/16/2024 1:15 PM EDT Office Visit [facility] [address] [place] [address] Ame Dias, OD [address] [place] [address] 10/07/2024 11:30 AM EDT Office Visit [facility] [address] [place] [address] NameHill MD [address] [place] [address] documented as of this encounter Visit Diagnoses Not on filedocumented in this encounter Additional Health Concerns Assessment Noted Time PHQ-9 Depression Total Score: 4 03/17/19 25 2:14 PM EST documented as of this encounter Care Teams Repack Room Worker Relationship Specialty Start Date End Date NameHill MD [address] [place] [address] PCP - General Family Medicine 03/15/15 documented as of this encounter
--- OUTSIDE RECORDS SUMMARY | 2024-07-14 15:18 | XMS_ITS ---
Author Organization [facility] Address [address] [place] [phone] Care Team Providers Care Cfo Controller Name Role Phone Name Hill HERNANDEZ Primary Care Provider James Kaur [phone] Encounters Encounter Location Date Provider Diagnosis [facility] [address] [place] [phone] 06/09/2024 James Easton Plan Of Treatment No Information Progress Notes * RAFFAELE CHUNG EDOB:[birth year] (79 yo F)Acc No.[id number]:06/09/2024 Patient:?RAFFAELE CHUNG :1945???Age:79 Y???Sex:Female Address:[address], [place] [address] * true * Date:? Generated for Shanei georgina/Andres/eTransmitting on:?07/14/2024 09:48 AM EDT
--- OUTSIDE RECORDS SUMMARY | 2024-07-14 15:18 | XMS_ITS | Clinical Summary ---
Author Organization [address] [place] [address] Address [address] [place] [address] Phone Care Team Providers Care Paymaster Of Purses Name Role Phone Gina Fonseca MD Primary [...] Department Care Team Description 06/10/[address] [facility] [address] [place] [address] Behzad Conway MD Anemia, unspecified 06/04/[address] [facility] [address] [place] [address] Behzad Conway MD Anemia, unspecified; Type 2 diabetes mellitus without complications ([facility] V24, [facility] V28) from Last 3 Months Immunizations Name Administration [...] right leg BREAST REDUCTION 2009 Bilateral PROCEDURE: HI BREAST REDUCTION Medical History Medical History Date Comments Unspecified essential hypertension DX:Unspecified essential hypertension DM type 2 (diabetes mellitus , type 2) ([facility] V24, [facility] V28) 12/24/2012 DX:DM type 2 (diabetes hailee itus, type 2) ([facility]) Family History Medical History Relation Name Comments Cataracts Father Glaucoma Father Breast cancer Mother 75 Breast cancer Sister 1 70 Blindness Neg Hx Macular degeneration Neg Hx Strabismus Neg Hx Relation Name Status Comments Daughter Alive HTN Father [place] and DM Mother 75 Breast cancer Sister [...] Complete blood count (06/04/2024 7:34 AM EDT) [facility] WBC 5.6 4.8 - 10.8 K/mcL LAB HEMETOLOGY METHOD 06/04/2024 10:31 AM [facility] RBC 4.10 3.80 - 4.80 M/mcL LAB HEMETOLOGY METHOD 06/04/2024 10:31 AM [facility] Hemoglobin 12.7 11.5 - 16.0 g/dL LAB HEMETOLOGY METHOD 06/04/2024 10:31 AM [facility] Hematocrit 39.9 35.0 - 47.0 % LAB HEMETOLOGY METHOD 06/04/2024 10:31 AM [facility] MCV 97.8 79.0 - 98.0 FL LAB HEMETOLOGY METHOD 06/04/2024 10:31 AM [facility] MCH 31.1 27.0 - 32.0 pcg LAB HEMETOLOGY METHOD 06/04/2024 10:31 AM [facility] MCHC 31.8(L) 32.0 - 37.0 g/dL LAB HEMETOLOGY METHOD 06/04/2024 10:31 AM [facility] RDW 13.2 11.0 - 15.0 % LAB HEMETOLOGY METHOD 06/04/2024 10:31 AM [facility] Platelets 200 130 - 400 K/mcL LAB HEMETOLOGY METHOD 06/04/2024 10:31 AM EDT [facility] MPV 11.4(H) 7.0 - 11.0 FL LAB HEMETOLOGY METHOD 06/04/2024 10:31 AM EDT [facility] NRBC 0.0 <1.0 % LAB HEMETOLOGY METHOD 06/04/2024 10:31 AM EDT [facility] NRBC Absolute 0.00 <0.10 K/mcL LAB HEMETOLOGY METHOD 06/04/2024 10:31 AM EDT [facility] Blood Venous blood specimen / Unknown Venipuncture / Unknown 06/04/2024 7:34 AM EDT 06/04/2024 9:59 AM EDT us Behzad Conway MD LAB BLOOD ORDERABLES Final Result Performing Organization Address City/[facility]/ZIP Co de Phone Number [facility] [address] [place] [address], [place] [phone] * (ABNORMAL) Hemoglobin A1c (06/04/2024 7:34 AM EDT) Hemoglobin A1C 6.6(H) <6.5 % LAB CHEMISTRY METHOD 06/04/2024 12:34 PM EDT [facility] Mean Bld Glu Estim. 143 mg/dL LAB CHEMISTRY METHOD 06/04/2024 12:34 PM EDT [facility] Blood Venous blood specimen / Unknown Venipuncture / Unknown 06/04/2024 7:34 AM EDT 06/04/2024 9:59 AM EDT us Behzad Conway MD LAB BLOOD ORDERABLES Final Result [facility] [address] [place] [address], [place] [phone] * (ABNORMAL) Comprehensive metabolic panel (06/04/2024 7:34 AM EDT) [facility] Signature Sodium 139 133 - 145 mmol/L LAB CHEMISTRY METHOD 06/04/2024 10:53 AM [facility] Potassium 4.6 3.5 - 5.5 mmol/L LAB CHEMISTRY METHOD 06/04/2024 10:53 AM [facility] Chloride 105 96 - 110 mmol/L LAB CHEMISTRY METHOD 06/04/2024 10:53 AM [facility] CO2 30 21 - 32 mmol/L LAB CHEMISTRY METHOD 06/04/2024 10:53 AM [facility] Anion Gap 4 3 - 11 LAB CHEMISTRY METHOD 06/04/2024 10:53 AM [facility] Glucose 105(H) 70 - 100 mg/dL LAB CHEMISTRY METHOD 06/04/2024 10:53 AM [facility] BUN 18 5 - 25 mg/dL LAB CHEMISTRY METHOD 06/04/2024 10:53 AM [facility] Creatinine 0.74 0.50 - 1.10 mg/dL LAB CHEMISTRY METHOD 06/04/2024 10:53 AM [facility] eGFR 83 >=60 mL/min/1. 73m2 LAB CHEMISTRY METHOD 06/04/2024 10:53 AM [facility] Comment:Calculation based on the??Chronic Kidney Disease Epidemiology Collaboration (CKD-EPI) equation refit??without adjustment for race. BUN/Creatinine Ratio 24.3 LAB CHEMISTRY METHOD 06/04/2024 10:53 AM [facility] Calcium 9.2 8.5 - 10.5 mg/dL LAB CHEMISTRY METHOD 06/04/2024 10:53 AM [facility] AST (SGOT) 37 10 - 42 unit/L LAB CHEMISTRY METHOD 06/04/2024 10:53 AM [facility] ALT (SGPT) 38 10 - 60 unit/L LAB CHEMISTRY METHOD 06/04/2024 10:53 AM EDT [facility] Alkaline Phosphatase 112 42 - 121 unit/L LAB CHEMISTRY METHOD 06/04/2024 10:53 AM EDT [facility] Total Protein 7.3 6.0 - 8.0 g/dL LAB CHEMISTRY METHOD 06/04/2024 10:53 AM EDT [facility] Albumin 3.7 3.2 - 5.0 g/dL LAB CHEMISTRY METHOD 06/04/2024 10:53 AM EDT [facility] Total Bilirubin 0.4 0.0 - 1.4 mg/dL LAB CHEMISTRY METHOD 06/04/2024 10:53 AM EDT [facility] Blood Venous blood specimen / Unknown Venipuncture / Unknown 06/04/2024 7:34 AM EDT 06/04/2024 9:59 AM EDT Behzad Conway MD LAB BLOOD ORDERABLES Final Result [facility] [address] [place] [address], * SCR MAMMO BI INCL CAD (08/11/2018 [...] cancer risk category Low (<15%) Procedure Note NewberryBhavesh - 02/13/2022 This is a summary report. [...] Breast cancer risk category Low (<15%) Result [facility] Hill Dickson MD IMG XR PROCEDURES Final Result * (ABNORMAL) Lipid panel (04/04/2015) LDL/HDL Ratio 4 0 - 4 Triglycerides 223(A) 0 - 150 mg/dL Cholesterol 194 0 - 200 mg/dL HDL 1(A) >=40 mg/dL LDL Cholesterol 96 0 - 100 mg/dL Blood Venous blood specimen / Unknown Result [facility] Historical Provider LAB BLOOD ORDERABLES Lina l Result * Urine Albumin Creatinine Ratio (08/27/2014) Pathologist [facility] Urine Albumin Creatinine Ratio abstracted Result [facility] Historical Provider HEALTH MAINTENANCE Final Result * Hepatitis C Screening (09/15/2012) Pathologist [facility] Hepatitis C Screening abstracted Historical Provider HEALTH MAINTENANCE Final Result from Last 3 Months or Most Recently Relevant to Health Maintenance Insurance [employer] MEDICARE Member Subscriber Plan / Payer (Ef fective 2023-Present) Name:Azeb Kennedy Relation to Subscriber:Self Name:Azeb Kennedy Payer ID:[id number] Group ID:[id number] Type:Not on file Address: [facility] [address] [phone] Care Teams Paymaster Of Purses Relationship Specialty Start Date End Date Gina Fonseca MD [address] [place] [address] PCP - General Internal Medicine 10/16/21
--- OUTSIDE RECORDS SUMMARY | 2024-07-14 15:18 | XMS_ITS | Clinical Summary ---
Author Organization [employer] Address [address] [facility] [address] [place] [address] Care Team Providers Care Teacher'S Aide Name Role Phone Name, Hill HERNANDEZ Primary Care Provider [phone] Allergies No known active allergies Medications * This document contains information received from the source organization and may not represent a complete record from that organization. Lancets (OneTouch Delica Plus [id number]) misc TEST BLOOD SUGAR THREE TIMES DAILY [...] 03/07/19 24 Active Lancets (OneTouch Delica Plus [id number]) miscIndications :Diabetes mellitus type 2 in obese TEST BLOOD SUGAR THREE TIMES DAILY 100 each 04/10/19 24 Active OneTouch Ultra Test test stripIndication s:Type 2 diabetes mellitus with other specified complication, without long-term current use of insulin ([facility]) TEST BLOOD [...] mild pain. 30 g 12/25/19 24 Active Blood Glucose Monitoring Suppl (ONE TOUCH ULTRA 2) w/Device kit TEST BLOOD SUGAR THREE TIMES DAILY 1 kit 03/25/19 25 Active metFORMIN (Glucophage) 850 MG tabletIndicatio ns:Type 2 diabetes mellitus with other specified complication, without long-term current use of insulin ([facility]),Essen tial hypertension TAKE 1 TABLET BY MOUTH TWICE DAILY WITH BREAKFAST AND WITH DINNER 60 tablet 11 05/07/19 25 Active oxyCODONE (Roxicodone) 5 MG immediate release tabletIndicatio ns:Shoulder injury, right, initial encounter Take 1 tablet (5 mg) by mouth if needed in the morning, at noon, and at bedtime for severe pain. May cause drowsiness and dizziness. Try using at bedtime initially. 12 tablet 05/21/19 25 Active ketorolac (Acular) 0.5 % ophthalmic solution INSTILL 1 DROP THE OPERATIVE EYE THREE TIMES DAILY. START 2 DAYS BEFORE SURGERY. TAPER DIRECTED 10/02/19 24 Active ofloxacin (Ocuflox) 0.3 % ophthalmic solution PLACE 1 DROP IN THE RIGHT EYE FOUR TIMES DAILY STARTING 1 DAY AFTER PROCEDURE APPOINTMENT 09/12/19 Active prednisoLONE acetate (Pred-Forte) 1 % ophthalmic suspension PLACE 1 DROP IN THE RIGHT EYE FOUR TIMES DAILY STARTING 1 DAY AFTER PROCEDURE APPOINTMENT 09/12/19 Active lemborexant (DayVigo) 10 MG tablet Take 1 tablet (10 mg) by mouth if needed at bedtime for sleep. 30 tablet 2 06/27/19 Active naproxen (Naprosyn) 500 MG tablet Take 1 tablet (500 mg) by mouth 2 times daily. 60 tablet 07/09/19 25 2024 Active valACYclovir (Valtrex) 1 g tabletIndicatio ns:Acute right eye pain Take 1 tablet (1,000 mg) by mouth 3 times daily for 7 days. 21 tablet 07/15/19 25 2024 Active acetaminophen (Tylenol) 325 MG capsuleIndicati ons:Acute right eye pain Take 1 capsule (325 mg) by mouth every 8 (eight) hours if needed for moderate pain or fever (pain). 30 capsule 07/15/19 25 2024 Active baclofen (Lioresal) 10 MG tabletIndicatio ns:Chronic right-sided low back pain with right-sided sciatica Take 0.5 tablets (5 mg) by mouth if needed at bedtime for muscle spasms. May take 1 tablet hs prn if tolerated. 20 tablet 03/17/19 25 2024 Discontinued(T herapy completed) amitriptyline (Elavil) 50 MG tablet TAKE 1 TABLET BY MOUTH AT BEDTIME 30 tablet 1 05/13/19 25 2024 Discontinued(S bret effects) meloxicam (Mobic) 15 MG tablet TAKE 1 TABLET BY MOUTH EVERY DAY 30 tablet 06/10/19 25 2024 Discontinued(I neffective) ramelteon (Rozerem) 8 MG tablet 06/10/19 25 2024 Discontinued(R eorder (will not trigger notification to Pharmacy)) ramelteon (Rozerem) 8 MG tablet Take 1 tablet (8 mg) by mouth at bedtime. 30 tablet 06/17/19 25 2024 Discontinued(C ost of medication) lemborexant (DayVigo) 5 MG tablet Take 1 tablet (5 mg) by mouth if needed at bedtime for sleep. 30 tablet 06/20/19 25 2024 Discontinued(R eorder (will not trigger notification to Pharmacy)) lemborexant (DayVigo) 5 MG tablet Take 1 tablet (5 mg) by mouth if needed at bedtime for sleep. 30 tablet 06/20/19 25 2024 Discontinued(D ose adjustment) cyclobenzaprine (Flexeril) 5 MG tablet Take 1 tablet (5 mg) by mouth at bedtime for 15 days. 15 tablet 06/23/19 25 2024 Discontinued(T herapy completed) Hospital, Clinic, or Other Facility Administered Medication Ordered Dose Route Frequency Start Date End Date Status ketorolac (Toradol) injection 30 mgIndications:Post-traumati c osteoarthritis of right shoulder 30 mg IM Once 07/08/2024 07/08/2024 Ended Active Problems Problem Noted Date Diagnosed Date Acute right eye pain 07/14/2024 Assessment & Plan (07/14/2024 9:43 AM EDT): 24 hours of acute tenderness of right upper inner eye lid without redness, swelling or seasonal allergies. Differential includes early shingles, less likely early cellulitis, allergic dermatitis vs other. Viral culture of skin obtained but no vesicles to swab. -start Valacyclovir 1 gram tid for 7 days 07/14/24 -acetaminophen prn pain -Eye apt for 2 days -ER precarious discussed Post-traumatic osteoarthritis of right shoulder 07/08/2024 Assessment & Plan (07/08/2024 4:39 PM EDT): Toradol injection today, can take Tylenol twice daily breakthrough pain and start with meloxicam tomorrow for the next 2 weeks. Advised to put heat on affected area and do gentle stretching exercises, will refer to PT Recommended to come to acupuncture clinic Reconsult as needed if symptoms do not improve within 4 to 6 weeks, may need intra-articular steroid injection due to underlying OA of the shoulder Right wrist tendinitis 04/20/2024 Assessment & Plan [...] due to trauma 04/20 Assessment & Plan (06/24/2024 4:43 PM EDT): Recommend trial of muscle relaxer (Flexeril 5mg nightly), and new NIH pain management algorithm: PEACE (Acute Phase - First few days): P - Protect: Unload or restrict movement to prevent further damage. E - Elevate: Elevate the injured area above the heart to help reduce swelling. A - Avoid anti-inflammatories: Avoid medications and ice that reduce inflammation, as it's a crucial part of the healing process. C - Compress: Use a bandage or tape to help manage swelling. E - Educate: Learn about the healing process and how to manage your injury. LOVE (Rehabilitation - After the initial days): L - Load: Gradually increase weight-bearing and activity, focusing on pain-free movement. O - Optimism: Maintain a positive outlook to support recovery. V - Vascularization: Engage in gentle cardio to promote blood flow and tissue healing. E - Exercise: Perform exercises to restore range of motion, strength, and function Assessment & Plan (04/20/2024 9:36 AM EST): [...] family illness. Azeb's boyfriend unexpectedly in the [place]. They have been together for about four years. Azeb lives alone and reports having sense of isolation and feeling lonely. The passing of her boyfriend has been identified as main stressor. PLAN: (check all that apply) Further services needed, but declined Behavioral Health Integration Plan Internal Follow up with [facility] Patient Self Plan Patient to utilize skills provided in intervention , Patient to [facility] as [facility], Comply with [...] family illness. Azeb's boyfriend unexpectedly in the [place]. They have been together for about four years. Azeb lives alone and reports having sense of isolation and feeling lonely. The passing of her boyfriend has been identified as main stressor. PLAN: (check all that apply) Further services needed, but declined Behavioral Health Integration Plan Internal Follow up with [facility] Patient Self Plan Patient to utilize skills provided in intervention , Patient to [facility] as needed, Comply with [...] Insomnia 04/14/2015 Atopic conjunctivitis 11/15/2011 Arthropathy 07/31/2011 HTN (hypertension) 07/31/2011 Headache 07/31/2011 Type 2 diabetes mellitus 07/31/2011 Assessment & Plan (10/11/2023 10:05 AM EDT): At goal. Continue current regimen Known medical problems 07/31/2011 Overview (03/09/2024): Diabetes mellitus type 2, uncontrolled Resolved Problems Problem Noted Date Diagnosed Date Resolved Date Lung mass 03/11/2018 09/11/2022 Acute upper respiratory infection 07/31/2011 09/05/2022 Elevated blood pressure read ing without diagnosis of hypertension 07/31/2011 06/22/2024 Encounters Date Type Department Care Team Description 07/14/2024 10:15 AM EDT Office Visit [address] [address] Samia Levy MD Acute pain of right shoulder due to trauma (Primary Dx) 07/14/2024 9:00 AM EDT Office Visit [facility] [address] [place] [phone] Vaishali Gee MD Acute right eye pain (Primary Dx) 07/14/2024 Telephone [facility] [address] [place] [address] Hill Dickson MD Appointment Confirmation 07/14/2024 Travel 07/13/2024 10:15 AM EDT Office Visit [address] [address] Samia Levy MD Acute pain of right shoulder due to trauma (Primary Dx) 07/13/2024 Travel 07/08/2024 4:00 PM EDT Office Visit [facility] [address] [place] [phone] Tina Powell MD Post-traumatic osteoarthritis of right shoulder (Primary Dx) 07/08/2024 Travel 07/02/[address] [address] Hill Dickson MD 06/26/[address] [address] Livia Tracy [place] 06/22/2024 4:00 PM EDT Office Visit [facility] [address] [place] [phone] Gwendolyn Blackwood MD Acute pain of right shoulder due to trauma (Primary Dx); Dietary counseling; Exercise counseling; Overweight 06/19/2024 Orders Only [facility] [address] [place] [phone] Hill Dickson MD 06/18/[address] [address] Hill Dickson MD Call Back Request 06/18/[address] [address] Hill Dickson MD Med Refill 06/18/[address] [address] Hill Dickson MD Prior Authorization 06/16/2024 1:45 PM EDT Office Visit [address] [address] Hill Dickson MD Musculoskeletal arm pain, right (Primary Dx); Falls frequently; Chronic insomnia; Type 2 diabetes mellitus with other specified complication, without long-term current use of insulin ([facility]) 06/16/[address] [address] Hill Dickson MD Durable Medical Equipment 06/16/2024 Travel 06/10/[address] [address] Livia Tracy [place] chart prep 06/09/2024 Refill [facility] [address] [place] [address] Hill Dickson MD 06/08/2024 Telephone [facility] [address] [place] [address] Hill Dickson MD Medication Question 06/08/[address] [address] Hill Dickson MD Durable Medical Equipment 06/01/2024 Orders Only [facility] External Provider, [facility] 06/01/[address] [address] Hill Dickson MD 05/20/2024 9:00 AM EDT Office Visit [facility] [address] [address] Cleveland Williamson MD Acute pain of right shoulder (Primary Dx); Shoulder injury, right, initial encounter; Abrasion of right knee, initial encounter; Hypertension, unspecified type 05/20/2024 Telephone [facility] [address] [place] [address] NameHill MD Durable Medical Equipment 05/20/2024 Telephone [facility] [address] [place] [phone] Hill Dickson MD ER Follow-up 05/08/2024 Refill [facility] [address] [place] [address] Hill Dickson MD 05/06/2024 Refill [facility] [address] [place] [phone] NameHill MD Type 2 diabetes mellitus with other specified complication, without long-term current use of insulin ([facility]); Essential hypertension 04/20/2024 9:00 AM EST Office Visit [facility] [address] [place] [phone] Tina Powell MD Right wrist tendinitis (Primary Dx); Right hand tendonitis; Cellulitis of right wrist; Acute pain of right shoulder due to trauma from Last 3 Months Immunizations Immunization Administration Dates Next Due Influenza, IIV3, injectable [...] Mass Index 28.72 07/14/2024 9:09 AM EDT Plan of Treatment Upcoming Encounters Date Type Department Care Team (Late st Contact Info) Description 07/16/2024 1:15 PM EDT Office Visit [facility] [address] [place] [address] [phone] Kanchan Diasica, OD [address] [place] [address] 10/07/2024 11:30 AM EDT Office Visit [facility] [address] [facility] [place] [address] Name, MD Hill [address] [place] [address] Health Maintenance Due Date Last Done Comments [...] 05/27/2023, 0 10/04/2022, 07/26/2021, Additional history exists Diabetes: Foot Exam 03/07/2024 03/07/2023, 03/07/2023, 03/07/2023, Additional history exists Dental X-Ray: Full Mouth 07/27/2024 022, 06/06/2016, 05/31/2008 Diabetes: Hemoglobin A1C 12/04/2024 025, 03/17/2024, 08/12/2023, Additional history exists Alcohol/Substance Use Screening 03/17/2025 03/17/2024 Depression Screening 03/17/2025 03/17/2024, 03/17/19 25 Eye Exam 03/22/2025 03/22/2023, 01/10/2023 Diabetes: Urine Protein Screening 06/11/2025 06/11/2024, 09/09/2023, 06/28/2022, Additional history exists Lipid Panel 06/11/2025 06/11/2024, 08/25, 06/28/2022, Additional history exists SDOH Screening 06/16/2025 06/16/2024 Tobacco Screening 07/14/2025 07/14/2024 DTaP/Tdap/Td Vaccines (3 - Td or Tdap) [...] Procedure Name Priority Date/Time Associated Diagnosis Comments ALBUMIN, RANDOM URINE W/CREATININE Routine 06/11/2024 9:40 AM EDT Type 2 diabetes mellitus with other specified complication, without long-term current use of insulin (CMS/HCC) LIPID PANEL, STANDARD Routine 06/11/2024 9:40 AM EDT Type 2 diabetes mellitus with other specified complication, without long-term current use of insulin (CMS/HCC) COMPREHENSIVE METABOLIC PANEL Routine 06/11/2024 9:40 AM EDT Type 2 diabetes mellitus with other specified complication, without long-term current use of insulin (CMS/HCC) CULTURE, URINE, ROUTINE Routine 06/01/2024 8:49 PM EDT URINALYSIS, COMPLETE, WITH REFLEX TO CULTURE Routine 06/01/2024 8:[address] ABDOMEN PELVIS W CONTRAST Routine 06/01/2024 10:[address] CHEST W CONTRAST Routine 06/01/2024 9 :12 AM EDT XR SHOULDER 2+ VIEWS RIGHT Routine 05/20/2024 9:29 AM EDT Shoulder injury, right, initial encounter XR HAND 3+ VIEWS RIGHT Routine 9:42 AM EST Right hand tendonitis XR SHOULDER 2+ VIEWS RIGHT Routine 04/20/2024 9:41 AM EST Acute pain of right shoulder due to trauma XR WRIST 3+ VIEWS RIGHT Routine 04/20/2024 9:41 AM EST Right hand tendonitis Right wrist tendinitis POCT GLYCATED HEMOGLOBIN, TOTAL Routine 03/17/2024 2:16 PM EST Type 2 diabetes mellitus with other specified complication, without long-term current use of insulin ([facility]) PROPHYLAXIS - [...] Recently Relevant to Health Maintenance Results * Albumin, Random Urine W/Creatinine (06/11/2024 9:40 AM EDT) Creatinine, Urine 93.85 mg/dL [facility] Microalbumin Urine 25.0 mg/L [facility] Microalbum Creatinine Ratio Ur 26.6 <30 ug/mg cr [facility] Comment:Albumin/Creatinine R atio Reference Ranges: Normal: < 30 ug/mg creatinine Microalbuminuria: 30 - 300 ug/mg creatinineClinical Albuminuria: > 300 ug/mg creatinine Urine (Urine, Random) 06/11/2024 9:40 AM EDT 06/11/2024 11:25 AM EDT us Hill Name MD LAB URINE ORDERABLES Final Resul t [facility] [address] [place] [phone] * (ABNORMAL) Lipid Panel, Standard (06/11/2024 9:40 AM EDT) Triglycerides 144 <150 mg/dL [facility] Comment:Desirable Triglyceri de: less than 150 mg/dLBorderline High Triglyceride 150-199 mg/dLHigh Triglyceride: 200-499 mg/dLVery High Triglyceride: greater than or equal to 5OO mg/dL Cholesterol 195 <200 mg/dL [facility] Comment:Desirable Cholestero l: less than 200 mg/dLBorderline High Cholesterol: 200-239 mg/dLHigh Cholesterol: greater than 239 mg/dL LDL Cholesterol Calculated 115(H) <100 mg/dL [facility] Comment:Desirable LDL: less than 100 mg/dLNear Optimal/Above Optimal LDL: 110- 129 mg/dLBorderline High LDL: 130-159 mg/dLHigh LDL: 160-189 mg/dLVery High LDL: greater than or equal to 190 mg/dL HDL Cholesterol 52 >40 mg/dL [facility] Comment:Desirable HDL: great er than 40 mg/dL Note: This HDL assay may give artificially low results in patients with liver disease. Blood Venous blood specimen / Unknown 06/11/2024 9:40 AM EDT 06/11/2024 11:17 AM EDT us Hill Dickson MD LAB BLOOD ORDERABLES Final Resul t [facility] [address] [place] [phone] [phone] * (ABNORMAL) Comprehensive Metabolic Panel (06/11/2024 9:40 AM EDT) Sodium 139 135 - 145 mmol/L [facility] Potassium 4.3 3.3 - 5.1 mmol/L [facility] Chloride 104 96 - 108 mmol/L [facility] Carbon Dioxide 26 22 - 29 mmol/L [facility] Anion Gap 13 12 - 20 [facility] Urea Nitrogen (BUN) 18(H) 9 - 16 mg/dL [facility] Creatinine, Serum 0.76 0.5 - 1.4 mg/dL [facility] Estimated Glomerular Filt Rate >60 [facility] Comment:Chronic Kidney Disea se: Estimated GFR < 60 mL/min/1.62g0Pshont Kidney Disease: Estimated GFR < 15 mL/min/1.73m2 Glucose 123(H) 60 - 115 mg/dL [facility] Calcium 10.0 8.4 - 10.2 mg/dL [facility] Bilirubin, Total 0.4 0.0 - 1.0 mg/dL [facility] Aspartate Amino Transferase 53(H) 5 - 31 U/L [facility] Alanine Aminotransferase 34(H) 0 - 31 U/L [facility] Total Protein 7.7 6.5 - 8.0 g/dL [facility] Albumin Level 4.3 3.5 - 5.0 g/dL [facility] Alkaline Phosphatase 91 39 - 117 U/L [facility] Blood Venous blood specimen / Unknown 06/11/2024 9:40 AM EDT 06/11/2024 11:17 AM EDT us Hill Dickson MD LAB BLOOD ORDERABLES Final Resul t Performing Organization Address [facility] Co de Phone Number [facility] [address] [place] [phone] * Culture, Urine, Routine (06/01/2024 8:49 PM EDT) Urine Urine specimen obtained by clean catch procedure / Unknown 06/01/2024 8:49 PM EDT 06/01/2024 8:49 PM EDT Comment:UACC Narrative [facility] - 06/03/2024 10:39 AM EDT Urine Culture Report Result Urine Culture 50,000 to 100,000 cfu/ml Urine Culture Mixed bacterial bacilio characteristic of Urine Culture urogenital contamination. Specimen Source: Urine clean catch us Generic External Data Provider LAB MICROBIOLOGY - GENERAL ORDERABLES Final Result Performing Organization Address [facility] de Phone Number [facility] [address] [place] [phone] * (ABNORMAL) Urinalysis, Complete, with Reflex to Culture (06/01/2024 8:32 PM EDT) Color Urine Yellow [facility] Appearance Urine Clear [facility] PH 6.5 5.0 - 9.0 [facility] Glucose Urine UA Negative Negative mg/dL [facility] Urine Blood Negative Negative [facility] Specific [place] - Urine >=1.030(H) 1.005 - 1.025 [facility] Urine Protein Negative Neg-Trace mg/dL [facility] Urine Ketones Negative Negative mg/dL [facility] Nitrite Urine Negative Negative [facility] Leukocyte Esterase Urine Large (3+)(A) Negative [facility] RBC Urine 0-2 0 - 2 /HPF [facility] Urine WBC 6-10(A) 0 - 5 /HPF [facility] Urine Squamous Epithelial Cell 0-2 0 - 2 /HPF [facility] Urine Bacteria None Seen None Seen [facility] Hyaline Casts, Urine 0-2 0 - 2 /LPF [facility] 06/01/2024 8:32 PM EDT 06/01/2024 8:37 PM EDT Narrative [facility] - 06/01/2024 8:48 PM EDT [id number], Clean Catch us Generic External Data Provider LAB URINE ORDERAB LES Final Result [facility] [address] [place] [phone] [phone] * CT Abdomen Pelvis w/ Contrast (06/01/2024 10:21 AM EDT) Anatomical Region Laterality Modality Body, Pelvis, Abdomen Computed T omography 06/01/2024 10:2 1 AM EDT Narrative 06/01/2024 11:24 AM EDT ? [facility] ?[address] ?[place] [address] ? CT Scan Report ? Signed ? Patient: Azeb Kennedy ?MR#: [id number] ?? 4 ? : 1945 ?Acct:[id number] ? Age/Sex: 79 / F ?ADM Date: 06/01/24 ? Loc: HO.ED ? Attending Dr: ? Ordering Physician: Vandana Farooq ?? Date of Service: 06/01/24 ?? Procedure(s): CT abdomen pelvis w IV con ?? Accession Number(s): [id number] ? cc: Vandana Farooq; NameHill MD ? Report Number: ?? [id number]: Total DLP = ??830.00 mGy-cm ?? EXAMINATION: ?? CT ABDOMEN AND PELVIS WITH CONTRAST ? CLINICAL INFORMATION: ?? Flank pain, bruising secondary to multiple falls. ? COMPARISON: ?? 09/12/2015. ?? CT chest performed concurrently. ? TECHNIQUE: ?? Multidetector volumetric images were obtained from the superior aspect ?? of the liver through the pubic symphysis following administration 85 mL ?? of Omnipaque 350 intravenous contrast. Sagittal and coronal reformatted ?? images were obtained on the technologist's workstation. ? Oral contrast: No ? This CT examination was performed using dose optimization techniques as ?? appropriate, variously including the following: ?? *Automated exposure control ?? *Adjustment of mA and/or kV according to patient size (this includes ?? techniques or standardized protocols for targeted exams where dose is ?? matched to indication/reason for exam; i.e. extremities or head) ?? *Use of iterative reconstruction technique ? FINDINGS: ?? LUNG BASES: Refer to the dedicated chest CT. ? LIVER, GALLBLADDER, AND BILIARY TREE: The liver demonstrates mild ?? diffuse fatty infiltration. It is normal in size and contour. No focal ?? hepatic lesion or biliary ductal dilatation is present. The gallbladder ?? is surgically absent. ? PANCREAS: Mild atrophy. No lesions. ? SPLEEN: Unremarkable. ? ADRENAL GLANDS: Unremarkable. ? KIDNEYS AND URETERS: The kidneys are normal in size, shape, and ?? attenuation. No hydronephrosis, hydroureter, or calculi seen. No ?? perinephric stranding. ? BLADDER: Unremarkable. ? GASTROINTESTINAL TRACT: ?? The stomach is somewhat decompressed but normal in contour. Normal ?? duodenum. ?? Small bowel is normal in caliber and course. No wall thickening or ?? inflammation. ?? There are no CT features of appendicitis. Appendix itself is not ?? visualized. ?? Colon is normal in course and caliber without inflammation or wall ?? thickening. No rectal abnormality. ? ABDOMINAL WALL: No significant hernia is appreciated. ? LYMPH NODES: Normal. ? VASCULAR: Mild atheromatous calcification, tortuosity, and mild ectasia ?? of the aorta without aneurysm. ? PELVIC VISCERA: Hysterectomy. No adnexal masses. ? OSSEOUS STRUCTURES: ?? No suspicious lytic or blastic bone lesion. ?? Degenerative changes throughout the imaged spine. ?? Aside from left lateral 10th rib fracture, no additional fractures ?? seen. ? CT/CT abdomen pelvis w IV con ?? IMPRESSION: ?? 1. No acute findings in the abdomen or pelvis. ?? 2. Diffuse fatty infiltration of the liver. Cholecystectomy. ?? 3. Mild atheromatous calcification, tortuosity, and mild ectasia of the ?? aorta without aneurysm. ?? 4. Left lateral 10th rib fracture. No additional fractures seen. ? Electronically signed by: ??Indra Carter MD ??06/01/2024 11:21 AM EDT RP ? Dictated By: ?Indra Carter MD ? Signed By: ?<Electronically signed by Indra Carter MD in OV> ?06/01/24 1121 ? DD/ 1021 ? TD/TT: 06/01/24 1056 ? Call Center Operations Manager: ? Procedure Note [employer]ott[employer]ainterpreter, Image - 06/01/[address] [place] [address] [address] Scan Report Signed Patient: Abraham Kennedy#: [id number] 4 : 8Acct:[id number] Age/Sex: 79 / FADM Date: 06/01/24 Loc: HO.ED Attending Dr: Ordering Physician: Vandana Farooq Date of Service: 06/01/24 Procedure(s): CT abdomen pelvis w IV con Accession Number(s): [id number] cc: Vandana Farooq; Name,Hill HERNANDEZ Report Number: [id number]: Total DLP = 830.00 mGy-cm EXAMINATION: CT ABDOMEN AND PELVIS WITH CONTRAST CLINICAL INFORMATION: Flank pain, bruising secondary to multiple falls. COMPARISON: 09/12/2015. CT chest performed concurrently. TECHNIQUE: Multidetector volumetric images were obtained from the superior aspect of the liver through the pubic symphysis following administration 85 mL of Omnipaque 350 intravenous contrast. Sagittal and coronal reformatted images were obtained on the technologist's workstation. Oral contrast: No This CT examination was performed using dose optimization techniques as appropriate, variously including the following: *Automated exposure control *Adjustment of mA and/or kV according to patient size (this includes techniques or standardized protocols for targeted exams where dose is matched to indication/reason for exam; i.e. extremities or head) *Use of iterative reconstruction technique FINDINGS: LUNG BASES: Refer to the dedicated chest CT. LIVER, GALLBLADDER, AND BILIARY TREE: The liver demonstrates mild diffuse fatty infiltration. It is normal in size and contour. No focal hepatic lesion or biliary ductal dilatation is present. The gallbladder is surgically absent. PANCREAS: Mild atrophy. No lesions. SPLEEN: Unremarkable. ADRENAL GLANDS: Unremarkable. KIDNEYS AND URETERS: The kidneys are normal in size, shape, and attenuation. No hydronephrosis, hydroureter, or calculi seen. No perinephric stranding. BLADDER: Unremarkable. GASTROINTESTINAL TRACT: The stomach is somewhat decompressed but normal in contour. Normal duodenum. Small bowel is normal in caliber and course. No wall thickening or inflammation. There are no CT features of appendicitis. Appendix itself is not visualized. Colon is normal in course and caliber without inflammation or wall thickening. No rectal abnormality. ABDOMINAL WALL: No significant hernia is appreciated. LYMPH NODES: Normal. VASCULAR: Mild atheromatous calcification, tortuosity, and mild ectasia of the aorta without aneurysm. PELVIC VISCERA: Hysterectomy. No adnexal masses. OSSEOUS STRUCTURES: No suspicious lytic or blastic bone lesion. Degenerative changes throughout the imaged spine. Aside from left lateral 10th rib fracture, no additional fractures seen. CT/CT abdomen pelvis w IV con IMPRESSION: 1. No acute findings in the abdomen or pelvis. 2. Diffuse fatty infiltration of the liver. Cholecystectomy. 3. Mild atheromatous calcification, tortuosity, and mild ectasia of the aorta without aneurysm. 4. Left lateral 10th rib fracture. No additional fractures seen. Electronically signed by: Indra Carter MD 06/01/2024 11:21 AM EDT Dictated By: Indra Carter MD Signed By: <Electronically signed by Indra Carter MD in OV> 06/01/24 1121 DD/ 1021 TD/TT: 06/01/24 1056 Call Center Operations Manager: [facility] External Provider IMG CT PROCEDURES Final Result * CT Chest w/ Contrast (06/01/2024 9:12 AM EDT) Anatomical Region Laterality Modality Body, Chest Computed Tomogra phy 06/01/2024 9:12 AM EDT Narrative 06/01/2024 11:12 AM EDT ? [facility] ?[address] ?[place] [address] ? CT Scan Report ? Signed ? Patient: Kennedy,Azeb ?MR#: [id number] ?? 4 ? : 1945 ?Acct:[id number] ? Age/Sex: 79 / F ?ADM Date: 06/01/24 ? Loc: HO.ED ? Attending Dr: ? Ordering Physician: Vandana Farooq ?? Date of Service: 06/01/24 ?? Procedure(s): CT chest w IV con ?? Accession Number(s): [id number] ? cc: Vandana Farooq; Name,Hill HERNANDEZ ? Report Number: ?? [id number]: Total DLP = ?0.00 mGy-cm ?? EXAMINATION: ?? CT CHEST WITH CONTRAST ? CLINICAL INFORMATION: ?? Flank pain, bruising secondary to multiple falls. ? COMPARISON: ?? None available. ? TECHNIQUE: ?? Multidetector volumetric CT imaging of the chest was obtained after the ?? administration of 85 mL of Omnipaque 350 intravenous contrast without ?? immediate adverse reactions. Axial MIP volume rendering provided. ?? Sagittal and coronal reformatted images were obtained. ? This CT examination was performed using dose optimization techniques as ?? appropriate, variously including the following: ?? *Automated exposure control ?? *Adjustment of mA and/or kV according to patient size (this includes ?? techniques or standardized protocols for targeted exams where dose is ?? matched to indication/reason for exam; i.e. extremities or head) ?? *Use of iterative reconstruction technique ? FINDINGS: ? LUNGS: ?? Mild gravity dependent atelectatic changes. ?? No consolidations or abnormal opacities. ?? No pneumothorax or pleural effusion. ?? Small airways appear normal. ?? Central airways are patent. ? MEDIASTINUM: ?? Thyroid demonstrates a 7 mm left inferior nodule. No follow-up ?? recommended. ?? There is no adenopathy or mass. ?? Aorta is normal in caliber with minimal atheromatous calcification. No ?? aneurysm. ?? Main pulmonary artery is normal in caliber. ?? Top normal cardiac size. No pericardial effusion. ?? No esophageal abnormality identified. ? PLEURA: There is no pleural effusion. No pleural mass or thickening. ? AXILLA: No lymphadenopathy. ? UPPER ABDOMEN: ?? Refer to the dedicated CT abdomen and pelvis performed concurrently. ? OSSEOUS STRUCTURES: ?? Nondisplaced fracture through the left lateral 10th rib. ?? No suspicious lytic or blastic bone lesions. ?? Moderate degenerative changes in the sternoclavicular joints, shoulder ?? joints, and throughout the spine. ? CT/CT chest w IV con ?? IMPRESSION: ?? 1. Acute nondisplaced fracture through the left lateral 10th rib. ?? 2. The lungs are clear. ?? 3. Ancillary findings as discussed in the body of the report. ? Electronically signed by: ??Indra Carter MD ??06/01/2024 11:09 AM EDT RP ? Dictated By: ?Indra Carter MD ? Signed By: ?<Electronically signed by Indra Carter MD in OV> ?06/01/24 1109 ? DD/ 0912 ? TD/TT: 06/01/24 1056 ? Call Center Operations Manager: ? Procedure Note Trinity, Zeeshan - 06/01/[address] [place] [address] [address] Scan Report Signed Patient: Abraham Kennedy#: [id number] 4 : 8Acct:[id number] Age/Sex: 79 / FADM Date: 06/01/24 Loc: HO.ED Attending Dr: Ordering Physician: Vandana Farooq Date of Service: 06/01/24 Procedure(s): CT chest w IV con Accession Number(s): [id number] cc: Vandana Farooq; Name,Hill HERNANDEZ Report Number: [id number]: Total DLP = 0.00 mGy-cm EXAMINATION: CT CHEST WITH CONTRAST CLINICAL INFORMATION: Flank pain, bruising secondary to multiple falls. COMPARISON: None available. TECHNIQUE: Multidetector volumetric CT imaging of the chest was obtained after the administration of 85 mL of Omnipaque 350 intravenous contrast without immediate adverse reactions. Axial MIP volume rendering provided. Sagittal and coronal reformatted images were obtained. This CT examination was performed using dose optimization techniques as appropriate, variously including the following: *Automated exposure control *Adjustment of mA and/or kV according to patient size (this includes techniques or standardized protocols for targeted exams where dose is matched to indication/reason for exam; i.e. extremities or head) *Use of iterative reconstruction technique FINDINGS: LUNGS: Mild gravity dependent atelectatic changes. No consolidations or abnormal opacities. No pneumothorax or pleural effusion. Small airways appear normal. Central airways are patent. MEDIASTINUM: Thyroid demonstrates a 7 mm left inferior nodule. No follow-up recommended. There is no adenopathy or mass. Aorta is normal in caliber with minimal atheromatous calcification. No aneurysm. Main pulmonary artery is normal in caliber. Top normal cardiac size. No pericardial effusion. No esophageal abnormality identified. PLEURA: There is no pleural effusion. No pleural mass or thickening. AXILLA: No lymphadenopathy. UPPER ABDOMEN: Refer to the dedicated CT abdomen and pelvis performed concurrently. OSSEOUS STRUCTURES: Nondisplaced fracture through the left lateral 10th rib. No suspicious lytic or blastic bone lesions. Moderate degenerative changes in the sternoclavicular joints, shoulder joints, and throughout the spine. CT/CT chest w IV con IMPRESSION: 1. Acute nondisplaced fracture through the left lateral 10th rib. 2. The lungs are clear. 3. Ancillary findings as discussed in the body of the report. Electronically signed by: Indra Carter MD 06/01/2024 11:09 AM EDT Dictated By: Indra Carter MD Signed By: <Electronically signed by Indra Carter MD in OV> 06/01/24 1109 DD/ 0912 TD/TT: 06/01/24 1056 Call Center Operations Manager: [facility] External Provider IMG CT PROCEDURES Final Result * XR Shoulder 2+ Views Right (05/20/2024 9:29 AM EDT) Only the most recent of2 resultswithin the time period is included. Anatomical Region Laterality Modality Upper Extremities, Shoulder Right Radi ographic Imaging 05/20/2024 9:29 AM EDT Narrative 05/20/2024 9:52 AM EDT ?[facility] ?[address] ?[place] [address] ?XRay Report ? Signed ? Patient: Kennedy,Azeb ?MR#: [id number] ?? 4 ? : 1945 ?Acct:[id number] ? Age/Sex: 79 / F ?ADM Date: 05/20/24 ? Loc: HO.HHCX ? Attending Dr: Cleveland Williamson MD ? Ordering Physician: CLEVELAND WILLIAMSON MD ?? Date of Service: 05/20/24 ?? Procedure(s): XR shoulder RT min 2V ?? Accession Number(s): [id number] ? cc: CLEVELAND WILLIAMSON MD ? EXAMINATION: ??XR SHOULDER 2 OR [...] ??James Gonzalez MD ??05/20/2024 09:49 AM EDT ?? RP ? Dictated By: ?James Gonzalez MD ? Signed By: ?<Electronically signed by James Gonzalez MD in OV> ?05/20/24 0949 ? DD/ 0929 ? TD/TT: 05/20/24 0940 ? Call Center Operations Manager: ? Procedure Note Zeeshan Petersen - 05/20/2024 [facility] [address] [facility] [address] XRay Report Signed Patient: Jesica KennedyAruna#: [id number] 4 : 8Acct:[id number] Age/Sex: 79 / FADM Date: 05/20/24 Loc: HO.HHCX Attending Dr: Cleveland Williamson MD Ordering Physician: CLEVELAND WILLIAMSON MD Date of Service: 05/20/24 Procedure(s): XR shoulder RT min 2V Accession Number(s): [id number] cc: CLEVELAND WILLIAMSON MD EXAMINATION: XR SHOULDER 2 OR MORE [...] 05/20/24 0949 DD/ 0929 TD/TT: 05/20/24 0940 Call Center Operations Manager: Cleveland Williamson MD IMG XR PROCEDURES Edited Result - Final * XR Hand 3+ Views Right (04/20/2024 9:42 AM EST) Anatomical Region Laterality Modality Upper Extremities, Hand Right [facility] 04/20/2024 9:42 AM EST Narrative 04/20/2024 10:37 AM EST ?[facility] ?[address] ?[place] [address] ?XRay Report ? Signed ? Patient: Kennedy,Azeb ?MR#: [id number] ?? 4 ? : 1945 ?Acct:[id number] ? Age/Sex: 79 / F ?ADM Date: 02/24/25 ? Loc: HO.HHCX ? Attending Dr: Tina Powell MD ? Ordering Physician: Tina Powell MD ?? Date of Service: 04/20/24 ?? Procedure(s): XR hand RT min 3V ?? Accession Number(s): [id number] ? cc: Tina Powell MD ? EXAMINATION: [...] DD/ 0942 ? TD/TT: 04/20/24 1000 ? Call Center Operations Manager: ? Procedure Note Trinity, Image - 04/20/2024 [place] [address] XRay Report Signed Patient: Abraham Kennedy#: [id number] 4 : 8Acct:[id number] Age/Sex: 79 / FADM Date: 04/20/24 Loc: HO.HHCX Attending Dr: Tina Powell MD Ordering Physician: Tina Powell MD Date of Service: 04/20/24 Procedure(s): XR hand RT min 3V Accession Number(s): [id number] cc: Tina Powell MD EXAMINATION: XR HAND [...] of the right hand. Electronically signed by: Jamse Gonzalez MD 04/20/2024 10:34 AM EST RP Dictated By: James Gonzalez MD Signed By: <Electronically signed by James Gonzalez MD in OV> 04/20/24 1034 DD/ 0942 TD/TT: 04/20/24 1000 Call Center Operations Manager: Tina Powell MD IMG XR PROCEDURES Final Result * XR Wrist 3+ Views Right (04/20/2024 9:41 AM EST) Anatomical Region Laterality Modality Upper Extremities, Wrist Right Radiogr aphic Imaging 04/20/2024 9:41 AM EST Narrative 04/20/2024 10:53 AM EST ?[facility] ?[address] ?[place] [address] ?XRay Report ? Signed ? Patient: Kennedy,Azeb ?MR#: [id number] ?? 4 ? : 1945 ?Acct:[id number] ? Age/Sex: 79 / F ?ADM Date: /24/25 ? Loc: HO.HHCX ? Attending Dr: Tina Powell MD ? Ordering Physician: Tina Powell MD ?? Date of Service: 04/20/24 ?? Procedure(s): XR wrist RT min 3V ?? Accession Number(s): [id number] ? cc: Tina Powell MD ? EXAMINATION: [...] DD/ 0941 ? TD/TT: 04/20/24 1000 ? Call Center Operations Manager: ? Procedure Note Zeeshan Petersen - 04/20/[address] [address] XRay Report Signed Patient: Abraham Kennedy#: [id number] 4 : 8Acct:[id number] Age/Sex: 79 / FADM Date: 04/20/24 Loc: HO.HHCX Attending Dr: Tina Powell MD Ordering Physician: Tina Powell MD Date of Service: 04/20/24 Procedure(s): XR wrist RT min 3V Accession Number(s): [id number] cc: Tina Powell MD EXAMINATION: XR WRIST, [...] Indra Carter MD 04/20/2024 10:49 AM EST RP Dictated By: Indra Carter MD Signed By: <Electronically signed by Indra Carter MD in OV> 04/20/24 1049 DD/ 0941 TD/TT: 04/20/24 1000 Call Center Operations Manager: Tina Powell MD IMG XR PROCEDURES Final Result * (ABNORMAL) POCT HGB A1C (03/17/2024 2:16 PM EST) Pathologist [facility] Hemoglobin A1C 6.3(A) 4.0 - 6.0 % QC Media Lot # [id number] Lot# Expiration Date [id number] Blood 03/17/2024 2:16 PM EST us Hill Dickson MD POINT OF CARE TEST ENTER/EDIT OR DERABLES Final Result * Diabetes Eye Exam (03/22/2023) Eye Exam Normal Normal, BIRADS 0 , BIRADS 1 , BIRADS 2, BIRADS 3 , BIRADS 4+ us Hill Dickson MD HEALTH MAINTENANCE Final Result * Colonoscopy (03/03/2014 2:40 PM EST) Pathologist [facility] Colonoscopy Normal Normal Narrative Hafsa Lares - 03/03/2014 2:40 PM EST Recommended 10 year follow up Santiago Edwards MD HEALTH MAINTENANCE Final Result * Hepatitis C Antibody (09/15/2012) Pathologist [facility] Hepatitis C Antibody Nonreactive Blood Result Bernarda Dickson MD HEALTH MAINTENANCE Final Result from Last 3 Months or Most Recently Relevant to Health Maintenance Insurance [facility] STANDARD [facility] LONGTERM OPTIONS (O D-SNP) DENTAL - [facility] [address] [place] [id number] Care Teams Teacher'S Aide Relationship Specialty Start Date End Date Name, MD Hill [address] [place] [phone] PCP - General Family Medicine 03/15/15
--- OUTSIDE RECORDS SUMMARY | 2024-07-14 15:18 | XMS_ITS | Encounter Summary ---
Author Organization [facility] Address [address] [place] [id number] Care Team Providers Care Proposal Engineer Name Role Phone Gina Fonseca MD Primary Care Provider [phone] Encounter Details Date Type Department Care Team (Late st Contact Info) Description 06/10/2024 Lab Requisition [facility] - Main Lab [address] [facility] [place] [address] Behzad Conway MD [address] [place] [address] [phone] Anemia, unspecified Social History Tobacco Use Types [...] unspecified documented in this encounter Care Teams Proposal Engineer Relationship Specialty Start Date End Date Gina Fonseca MD [address] [place], [place] PCP - General Internal Medicine 10/16/21 documented as of this encounter
--- OUTSIDE RECORDS SUMMARY | 2024-07-14 15:18 | XMS_ITS | Encounter Summary ---
Author Organization [employer] Address [address] [facility] 7t [place] [address] Care Team Providers Care Sanitation Engineer Name Role Phone Name, Hill HERNANDEZ Primary Care Provider [phone] Reason for Visit * Reason Onset Date Comments triage 07/19/2022 Encounter Details Date Type Department Care Team ([facility] st Contact Info) Description 07/19/[address] [facility] MEDICINE [address] [place], [place] [phone] Name, MD Hill [address] [place] [address] triage Social History Tobacco Use Types Packs/Day [...] worse The caller accepted this outcome speaks mauritian documented in this encounter Plan of Treatment Upcoming Encounters Date Type Department Care Team (Late st Contact Info) Description 07/16/2024 1:15 PM EDT Office Visit [facility] OPTOMETRY [address] [place] [address] Ame Dias, FLORENCIA [address] [place] [address] 10/07/2024 11:30 AM EDT Office Visit [facility] MEDICINE [address] [place] [address] Name, MD Hill [address] [place] [address] documented as of this encounter Visit Diagnoses Not on filedocumented in this encounter Additional Health Concerns Assessment Noted Time PHQ-9 Depression Total Score: 19 023 1:35 PM EDT documented as of this encounter Care Teams Sanitation Engineer Relationship Specialty Start Date End Date Name, MD Hill [address] [place] [address] PCP - General Family Medicine 03/15/15 documented as of this encounter
--- OUTSIDE RECORDS SUMMARY | 2024-07-14 15:18 | XMS_ITS | Encounter Summary ---
Author Organization [employer] Address [address] [facility] 7[address] [place] [address] Care Team Providers Care Manager Of Security Name Role Phone Name, Hill HERNANDEZ Primary Care Provider [phone] Reason for Visit * Reason Onset Date Comments Appointment Confirmation 07/14/2024 Encounter Details Date Type Department Care Team ([facility] st Contact Info) Description 07/14/2024 Telephone [facility] MED & PEDS [address] [place], [place] [phone] Name, MD Hill [address] [place] [address] Appointment Confirmation Social History Tobacco Use Types Packs/Day Years [...] encounter Miscellaneous Notes * Telephone Encounter - Maria Ines Kennedy MA - 07/14/2024 10:56 AM EDT Called pt ([phone]) to confirm emergency vision appt on 07/16/24 @ 1:15pm per Dr. Gee request. Pt is aware of address ([address] [place] [address]) and time. documented in this encounter Plan of Treatment Upcoming Encounters Date Type Department Care Team ([facility] st Contact Info) Description 07/16/2024 1:15 PM EDT Office Visit [facility] OPTOMETRY [address] [place] [address] Ame Dias, FLORENCIA [address] [place] [address] 10/07/2024 11:30 AM EDT Office Visit [facility] MEDICINE [address] [place] [address] Name, MD Hill [address] [place] [address] documented as of this encounter Visit Diagnoses Not on filedocumented in this encounter Additional Health Concerns Assessment Noted Time PHQ-9 Depression Total Score: 4 03/17/19 25 2:14 PM EST documented as of this encounter Care Teams Manager Of Security Relationship Specialty Start Date End Date Name, MD Hill [address] [place] [address] PCP - General Family Medicine 03/15/15 documented as of this encounter
--- OUTSIDE RECORDS SUMMARY | 2024-07-14 15:18 | XMS_ITS | Encounter Summary ---
Author Organization [employer] Address [address] [facility] 7t [place] [address] Care Team Providers Care Concrete Boom Operator Name Role Phone Name, Hill HERNANDEZ Primary Care Provider [phone] Reason for Visit * Reason Comments Acupuncture Encounter Details Date Type Department Care Team ([facility] st Contact Info) Description 07/13/2024 10:15 AM EDT Office Visit [facility] MEDICINE [address] [place], [place] [phone] Samia Levy MD [address] [place] [address] Acute pain of right shoulder due to [...] Progress Notes * Samia Levy MD - 07/13/2024 10:15 AM EDT Subjective Patient ID: Azeb Kennedy is a 79 y.o. female who presents for Acupuncture. Azeb is here for acupuncture treatment #1. She is interested in addressing right arm pain s/p fall last week. She was evaluated in the [place] and referred to PT. She also bruised her ribs. No previousexperience with acupuncture. Review of Systems Psychiatric/Behavioral: Negative for dysphoric [...] 1:15 PM EDT Office Visit [facility] OPTOMETRY [address] [place] [address] Ame Dias, OD [address] [place] [address] 10/07/2024 11:30 AM EDT Office Visit [facility] MEDICINE [address] [place] [address] Name, MD Hill [address] [place], [place] [phone] documented as of this encounter Visit Diagnoses Diagnosis Acute pain of right shoulder due to trauma- Primary documented in this encounter Additional Health Concerns Assessment Noted Time PHQ-9 Depression Total Score: 4 03/17/19 25 2:14 PM EST documented as of this encounter Care Teams Concrete Boom Operator Relationship Specialty Start Date End Date Name, MD Hill [address] [place] [address] [phone] PCP - General Family Medicine 03/15/15 documented as of this encounter
--- OUTSIDE RECORDS SUMMARY | 2024-07-14 15:19 | XMS_ITS | Encounter Summary ---
Author Organization [employer] Address [address] [facility] 7t [place] [address] Care Team Providers Care Executive Business Coach Name Role Phone Name, Hill HERNANDEZ Primary Care Provider [phone] Reason for Visit * Reason Onset Date Comments ER Follow-up 05/20/2024 Encounter Details Date Type Department Care Team ([facility] st Contact Info) Description 05/20/2024 Telephone [facility] MEDICINE [address] [place], [place] [phone] Name, MD Hill [address] [place] [address] ER Follow-up Social History Tobacco Use Types [...] PM EDT Please obtain ED report from [facility] 05/19/24. Thank you. Triage call to Pt with [facility] [employer] Engineer [place] [id number]. Pt is called for follow up post [...] Pt is advised to call back to [facility] if needed after 05/22/24 and Pt agrees [...] ED visit on : Date: 05/19/24 Hospital: [facility] Seen for: Fall Symptomatic Yes pain on right arm *if yes message should go to Triage Patient advised will forward to team nurse for follow up documented in this encounter Plan of Treatment Upcoming Encounters Date Type Department Care Team (Late st Contact Info) Description 07/16/2024 1:15 PM EDT Office Visit [facility] OPTOMETRY [address] [place] [address] Ame Dias, OD [address] [place], [place] [phone] 10/07/2024 11:30 AM EDT Office Visit [facility] MEDICINE [address] [place] [address] Name, MD Hill [address] [place] [address] documented as of this encounter Visit Diagnoses Not on filedocumented in this encounter Additional Health Concerns Assessment Noted Time PHQ-9 Depression Total Score: 4 03/17/19 25 2:14 PM EST documented as of this encounter Care Teams Executive Business Coach Relationship Specialty Start Date End Date Name, MD Hill [address] [place] [address] [phone] PCP - General Family Medicine 03/15/15 documented as of this encounter
--- OUTSIDE RECORDS SUMMARY | 2024-07-14 15:19 | XMS_ITS | Encounter Summary ---
Author Organization [employer] Address [address] [place] [address] 7t [place] [address] Care Team Providers Care Picker Tender Helper Name Role Phone Name, Hill HERNANDEZ Primary Care Provider [phone] Encounter Details Date Type Department Care Team (Late Contact Info) Description 07/30/2022 Abstract [facility] MEDICINE [address] [place], [place] [phone] Name, MD Hill [address] [place] [address] Social History Tobacco Use Types Packs/Day Years [...] Description 07/16/2024 1:15 PM EDT Office Visit [facility] OPTOMETRY [address] [place], [place] [phone] Ame Dias, OD [address] [place], [place] [phone] 10/07/2024 11:30 AM EDT Office Visit [facility] MEDICINE [address] [place] [address] Name, MD Hill [address] [place] [address] documented as of this encounter Procedures Procedure Name Priority Date/Time Associated Diagnosis Comments COLONOSCOPY Routine 03/03/2014 2:40 PM EST documented in this encounter Results * Hm Colonoscopy (03/03/2014 2:40 PM EST) Colonoscopy Normal Normal Narrative Hafsa Lares - 03/03/2014 2:40 PM EST Recommended 10 year follow up us Historical Provider HEALTH MAINTENANCE Final Result documented in this encounter Visit Diagnoses Not on filedocumented in this encounter Additional Health Concerns Assessment Noted Time PHQ-9 Depression Total Score: 19 023 1:35 PM EDT documented as of this encounter Care Teams Picker Tender Helper Relationship Specialty Start Date End Date [place], [place] [address] PCP - General Family Medicine 03/15/15 documented as of this encounter
--- OUTSIDE RECORDS SUMMARY | 2024-07-14 15:19 | XMS_ITS | Encounter Summary ---
Author Organization [employer] Address [address] 7t [place] [address] Care Team Providers Care Stove Carriage Operator Name Role Phone Name, Hill HERNANDEZ Primary Care Provider [phone] Encounter Details Date Type Department Care Team (Late st Contact Info) Description 01/21/2023 Telephone [facility] MEDICINE [address] [place], [place] [phone] Name, MD Hill [address] [place] [address] Social History Tobacco Use Types Packs/Day Years [...] Description 07/16/2024 1:15 PM EDT Office Visit [facility] OPTOMETRY [address] [place] [address] TarAme perdomo, OD [address] [place] [address] 10/07/2024 11:30 AM EDT Office Visit [facility] MEDICINE [address] [place] [address] Name, MD [place] [address] [place] [address] documented as of this encounter Visit Diagnoses Not on filedocumented in this encounter Additional Health Concerns Assessment Noted Time PHQ-9 Depression Total Score: 19 023 1:35 PM EDT documented as of this encounter Care Teams Stove Carriage Operator Relationship Specialty Start Date End Date NameHill MD [address] [place] [address] PCP - General Family Medicine 03/15/15 documented as of this encounter
--- OUTSIDE RECORDS SUMMARY | 2024-07-14 15:19 | XMS_ITS | Encounter Summary ---
Author Organization [employer] Address [address] 7t [place] [address] Care Team Providers Care Cardroom Worker Name Role Phone Name, Hill HERNANDEZ Primary Care Provider [phone] Encounter Details Date Type Department Care Team (Late st Contact Info) Description 02/01/2023 Telephone [facility] MEDICINE 230 [place], [place] [phone] Name, MD Hill [address] [place] [address] Social History Tobacco Use Types Packs/Day Years [...] 1:15 PM EDT Office Visit [facility] OPTOMETRY [address] [place] [address] TarAme perdomo, OD [address] [place] [address] 10/07/2024 11:30 AM EDT Office Visit [facility] MEDICINE [address] [place] [address] Name, MD Hill [address] [place] [address] documented as of this encounter Visit Diagnoses Not on filedocumented in this encounter Additional Health Concerns Assessment Noted Time PHQ-9 Depression Total Score: 19 023 1:35 PM EDT documented as of this encounter Care Teams Cardroom Worker Relationship Specialty Start Date End Date NameHill MD [address] [place] [address] PCP - General Family Medicine 03/15/15 documented as of this encounter
--- OUTSIDE RECORDS SUMMARY | 2024-07-14 15:19 | XMS_ITS | Patient Health Record ---
Author Organization [facility] Address [address] [place] [address] Care Team Providers Care Printing Supplies Sales Representative Name Role Phone Name Hill HERNANDEZ Primary Care Provider James Kaur [phone] Allergies No Known Allergies Reason For Referral No Information Medications Medication SIG (Take, Route, Frequency, Duration) Notes Start Date End Date Status Amitriptyline HCl 25 MG 1 tablet at bedt juan josé Orally Once a day Active Tylenol 8 Hour Arthritis Pain 650 MG 2 tablets as needed Orally every 8 hrs Active Omeprazole 20 MG TAKE 1 CAPSULE BY [facility] DAILY IN THE MORNING Oral for 30 [...] Problem Status W/U Status Risk Notes Problem 367296485 Colon cancer screening (Z12.11) Active confirmed Problem 041304900 Gastroesophageal reflux disease without esophagitis (K21.9) Active confirmed Problem 465515135 Gastroesophageal reflux disease, esophagitis presence not specified (K21.9) Active confirmed Problem 19777480 Constipation, unspecified constipation type (K59.00) Active confirmed Encounters Encounter Location Date Provider Diagnosis [facility] [address] [place] [phone] 05/21/2024 James Easton [facility] [address] [place] [phone] 06/09/2024 James Easton Plan Of Treatment Future Test Test Name Order Date COLONOSCOPY 12/02/2013 Insurance Providers Payer Name Payer Address Payer Phone Subscriber Number Group Number Insured Name Patient Relationship to Insured Coverage Start Date Coverage End Date [facility] [address] [place] [phone] [id number] RAFFAELE CHUNG Self - patient is the [...]
--- OUTSIDE RECORDS SUMMARY | 2024-07-14 15:19 | XMS_ITS | Encounter Summary ---
Author Organization [employer] Address [address] [facility] 7t [place] [address] Care Team Providers Care Master Coastal Waters Name Role Phone Name, Hill HERNANDEZ Primary Care Provider [phone] Reason for Visit * Reason Onset Date Comments Med Refill telephone call 10/20/2022 CS ASSOCIATE Services 10/20/2022 The pt requested to have her CS ASSOCIATE services reinstated by CHUYITA. I called to inform her, that she needs to contact her insurance [facility] to make the request, because the referral needs to go through them. I reached a voicemail, and left a msg with the above information. I asked her to contact me at ext [phone], if she has any questions. Encounter Details Date Type Department Care Team (Late st Contact Info) Description 10/20/[address] [facility] MEDICINE 230 [place] [address] Name, MD Hill [address] [place] [address] Social History Tobacco Use Types Packs/Day Years [...] Miscellaneous Notes * Telephone Encounter - Arin Vieira [place] - 10/25/2022 10:36 AM EDT The pt requested to have her CS ASSOCIATE services reinstated by [facility]. I called to inform her, that she needs to contact her insurance [facility] to make the request, because the referral needs to go through them. I reached a voicemail, and left a msg with the above information. I asked her to contact me at ext [phone], if she has any questions. 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 I told her to go to medical records she said they don't havethe form. Best # to call is [phone] documented in this encounter Plan of Treatment Upcoming Encounters Date Type Department Care Team (Late st Contact Info) Description 07/16/2024 1:15 PM EDT Office Visit [facility] OPTOMETRY [address] [place] [address] Ame Dias, OD 267 [place] [address] 10/07/2024 11:30 AM EDT Office Visit [facility] MEDICINE 230 [place] [address] Name, MD [place] [address] [place] [address] documented as of this encounter Visit Diagnoses Not on filedocumented in this encounter Additional Health Concerns Assessment Noted Time PHQ-9 Depression Total Score: 19 023 1:35 PM EDT documented as of this encounter Care Teams Master Coastal Waters Relationship Specialty Start Date End Date Name, MD Hill [address] [place] [address] PCP - General Family Medicine 03/15/15 documented as of this encounter
--- OUTSIDE RECORDS SUMMARY | 2024-07-14 15:19 | XMS_ITS | Encounter Summary ---
Author Organization [employer] Address [address] [facility] 7t [place] [address] Care Team Providers Care Education Sales Consultant Name Role Phone Name, Hill HERNANDEZ Primary Care Provider [phone] Reason for Visit * Reason Onset Date Comments requesting a call 09/04/2022 Encounter Details Date Type Department Care Team ([facility] st Contact Info) Description 09/04/2022 Telephone [facility] MEDICINE [address] [place] [phone] Name, MD Hill [address] [place] [address] requesting a call Social History Tobacco Use [...] - 09/05/2022 2:46 PM EDT T/C to [phone] for below message through [employer] id - [id number] for below message, pt. States she is [...] of upcoming appointment. Please contact pt at [phone] (Maltese speaker) documented in this encounter Plan of Treatment Upcoming Encounters Date Type Department Care Team (Late st Contact Info) Description 07/16/2024 1:15 PM EDT Office Visit [facility] OPTOMETRY 267 [place], [place] [phone] Ame Dias, OD 267 [place] [address] 10/07/2024 11:30 AM EDT Office Visit [facility] MEDICINE 230 [place] [address] Name, MD Hill [address] [place] [address] documented as of this encounter Visit Diagnoses Not on filedocumented in this encounter Additional Health Concerns Assessment Noted Time PHQ-9 Depression Total Score: 19 023 1:35 PM EDT documented as of this encounter Care Teams Education Sales Consultant Relationship Specialty Start Date End Date NameHill MD [address] [place] [address] PCP - General Family Medicine 03/15/15 documented as of this encounter
--- OUTSIDE RECORDS SUMMARY | 2024-07-14 15:19 | XMS_ITS | Encounter Summary ---
Author Organization [facility] [employer] Address [address] [facility] 7t [place] [address] Care Team Providers Care Brand Executive Name Role Phone Name, Hill HERNANDEZ Primary Care Provider [phone] Reason for Visit * Reason Onset Date Comments Call Back Request 02/01/2023 Encounter Details Date Type Department Care Team ([facility] st Contact Info) Description 02/01/2023 Telephone [facility] [address] [place], [place] [phone] Name, MD Hill [address] [place] [address] Call Back Request Social History Tobacco Use [...] 2:16 PM EST T/C to pt. Through [employer] id - [id number] for below message to inform submit paperwork regarding TELEVISION TUBE INSPECTOR hours at medical records/ forms dept. Pt. Verbally agreed and understood. * Telephone Encounter - Aylin Duncan - 02/01/2023 3:37 PM EST Tc from pt requesting a call back in regards paperwork for TELEVISION TUBE INSPECTOR hours. documented in this encounter Plan of Treatment Upcoming Encounters Date Type Department Care Team (Late st Contact Info) Description 07/16/2024 1:15 PM EDT Office Visit [facility] OPTOMETRY [address] [place] [address] Ame Dias, FLORENC[place] 267 [place] [address] 10/07/2024 11:30 AM EDT Office Visit [facility] MED[facility]INE [address] [place] [address] Name, MD Hill [address] [place] [address] documented as of this encounter Visit Diagnoses Not on filedocumented in this encounter Additional Health Concerns Assessment Noted Time PHQ-9 Depression Total Score: 19 023 1:35 PM EDT documented as of this encounter Care Teams Brand Executive Relationship Specialty Start Date End Date Name, MD Hill [address] [place] [address] PCP - General Family Medicine 03/15/15 documented as of this encounter
--- OUTSIDE RECORDS SUMMARY | 2024-07-14 15:19 | XMS_ITS | Encounter Summary ---
Author Organization [employer] Address [address] [facility] 7t [place] [address] Care Team Providers Care Research Recruiter Name Role Phone Name, Hill HERNANDEZ Primary Care Provider [phone] Reason for Visit * Reason Onset Date Comments Pre-op Visit 04/25/2023 Encounter Details Date Type Department Care Team ([facility] st Contact Info) Description 04/25/[address] [facility] MEDICINE 230 [place], [place] [phone] Name, MD Hill [address] [place] [address] Pre-op Visit Social History Tobacco Use Types [...] Lab needed: No EKG: No Surgeon's name: [facility] Facility name: [facility] Surgeon's office number: [phone] Surgeon's office fax number: [phone] Contact name (person you spoke with): Patricia Last office note from surgeon requested documented in this encounter Plan of Treatment Upcoming Encounters Date Type Department Care Team ([facility] st Contact Info) Description 07/16/2024 1:15 PM EDT Office Visit [facility] OPTOMETRY [address] [place] [address] Ame Dias, OD 267 [place] [address] 10/07/2024 11:30 AM EDT Office Visit [facility] MEDICINE [address] [place] [address] Name, MD Hill [address] [place] [address] documented as of this encounter Visit Diagnoses Not on filedocumented in this encounter Additional Health Concerns Assessment Noted Time PHQ-9 Depression Total Score: 0 03/07/19 24 8:57 AM EST documented as of this encounter Care Teams Research Recruiter Relationship Specialty Start Date End Date Name, [place] [address] PCP - General Family Medicine 03/15/15 documented as of this encounter
--- OUTSIDE RECORDS SUMMARY | 2024-07-14 15:19 | XMS_ITS | Encounter Summary ---
Author Organization [employer] Address [address] [facility] 7t [place] [address] Care Team Providers Care Air Hammer Stripper Name Role Phone Name, Hill HERNANDEZ Primary Care Provider [phone] Reason for Visit * Reason Onset Date Comments FYI 05/07/2023 Encounter Details Date Type Department Care Team ([facility] st Contact Info) Description 05/07/2023 Telephone [facility] MEDICINE 230 [place], [place] [phone] Name, MD Hill [address] [place] [address] Social History Tobacco Use Types Packs/Day Years [...] AM EDT documented as of this encounter Functional Status * Over the past 2 weeks, how often have you been bothered by any of the following problems? Question Answer Date of Assessment Author Patient Health Questionnaire -2 Score 4 05/09/2023 1:00 PM EDT Marizol Jones * If you checked off any problems on this questionnaire so far, Question Answer Date of Assessment Author How difficult have these problems made it for you to do your work, take care of things at home, or get along with other people? Very difficult 05/09/2023 1:00 PM EDT Marizol Jones * Over the past 2 weeks, how often have you been bothered by any of the following problems? Question Answer Date of Assessment Author Little interest or pleasure in doing things More than half the days 05/09/2023 1:00 PM Jayne Hannon Feeling down, depressed, or hopeless More than half the days 05/09/2023 1:00 PM JERRELLT Jayne Jones Trouble falling or staying asleep, or sleeping too much More than half the days 05/09/2023 1:00 PM JERRELLT Jayne Jones Feeling tired or having little energy More than half the days 05/09/2023 1:00 PM Jayne Hnanon Poor appetite or overeating More than half the days 05/09/2023 1:00 PM JERRELLT Jayne Jones Feeling bad about yourself - or that you are a failure or have let yourself or your family down Not at all 05/09/2023 1:00 PM EDT Jayne Jones Trouble concentrating on things, such as reading the newspaper or watching television Several days 05/09/2023 1:00 PM EDT Jayne Jones Moving or speaking so slowly that other people could have noticed? Or the opposite - being so fidgety or restless that you have been moving around a lot more than usual. Several days 05/09/2023 1:00 PM EDT Jayne Jones Thoughts that you would be better off or hurting yourself in some way Not at all 05/09/2023 1:00 PM EDT Jayne Jones Patient Health Questionnaire-9 Score 12 05/09/2023 1:00 PM EDT Jayne Jones documented as of this encounter Miscellaneous Notes * Telephone Encounter - Aylin Duncan - 05/07/2023 1:32 PM EDT Tc from [facility] calling to inform PHQA of 15, [facility] also stated they check blood pressure and Charla rojas advised by software writer that pt was seen yesterday and have an appt on . Any questions to [facility] [phone] documented in this encounter Plan of Treatment Upcoming Encounters Date Type Department Care Team (Late st Contact Info) Description 07/16/2024 1:15 PM EDT Office Visit [facility] OPTOMETRY [address] [place] [address] Ame Dias, OD 267 [place] [address] 10/07/2024 11:30 AM EDT Office Visit [facility] MEDICINE 230 [place], [place] [phone] Name, MD Hill [address] [place] [address] documented as of this encounter Visit Diagnoses Not on filedocumented in this encounter Additional Health Concerns Assessment Noted Time PHQ-9 Depression Total Score: 0 03/07/19 24 8:57 AM EST documented as of this encounter Care Teams Air Hammer Stripper Relationship Specialty Start Date End Date Name, MD Hill [address] [place] [address] PCP - General Family Medicine 03/15/15 documented as of this encounter
== END 2024-07-14 13:56 | disposition home or self-care (01) ==
LOC: HO.LNP 13:55
PROVIDERS: Visit Provider Family Medicine
DX: H57.11 Ocular pain, right eye (principal)
CPT/HCPCS: 87255

== ENCOUNTER 2024-08-06 10:13 | Outpatient (REF) | payer OTHER, SELFPAY ==
--- OUTSIDE RECORDS SUMMARY | 2024-08-06 11:47 | XMS_ITS ---
Author Name MS. Hubert Sen APRN Address [address] [place] [address] Phone [phone] Care Team Providers Care Information Technology Administrator Name Role Phone Ruth Sen Unavailable [phone] Reason for Referral Not Available Allergies, adverse [...] 2021-12-05 No Data Available OneTouch Delica Plus [id number] Miscellaneous TEST BLOOD SUGAR THREE TIMES DAILY [...] List Problem Status Onset Date Resolved Date Synopsis Essential hypertension Active 2022-06-04 N/A St ableLisinoprilAvg BP, per patient report: 110-120/60-70sContinue taking medication, monitor BP routinely, exercise, low salt diet, and contact us if developing emergent HTN, and continue f/u care and monitoring every 3-6 months. H/O fracture Active 2022-06-04 N/A Stableh/o Fr acture of neck, unspecifiedContinue f/u care and monitoring with PCP every 3-6 months. Major depressive disorder, recurrent, remission Active 2022-06-04 N/A StableAmitriptyl ine Denies SI/HIContinue taking medication as prescribed, discussed coping mechanisms, and contact us if developing SI/HI or worsening depression. Continue f/u care and monitoring with PCP every 3-6 months. Type 2 diabetes mellitus with complication: HLD Active 2022-06-04 N/A StableMetformi n, Pravastatin Avg BP, per patient report: 100-180sno a1c available in outside care notesContinue taking medication as prescribed, monitor BG routinely, low carb, exercise, and contact us if developing HHS or DKA. Continue f/u care and monitoring with PCP every 3-6 months. Encounters Encounters Type Facility Date of Service Diagnosis/Co mplaint New patient,40-59min; chronic exacerbation, 2 stable chronic or 1 acute illness add add modifier 95 for video (do not use for phone, instead use 44173-74) [facility] [place] 06/04/2022 Type 2 diabetes mellitus wit h other specified complicationHyperlipidemia, unspecifiedEssential (primary) hypertensionMajor depressive disorder, recurrent, in remission, unspecifiedPersonal history of (healed) traumatic fracture New patient,40-59min; chronic exacerbation, 2 stable chronic or 1 acute illness add add modifier 95 for video (do not use for phone, instead use 31069-03) [facility] [place] 06/04/2022 New patient,40-59min; chronic exacerbation, 2 stable chronic or 1 acute illness add add modifier 95 for video (do not use for phone, instead use 96491-06) [facility] [place] 06/04/2022 New patient,40-59min; chronic exacerbation, 2 stable chronic or 1 acute illness add add modifier 95 for video (do not use for phone, instead use 50063-42) [facility] [place] 06/04/2022 New patient,40-59min; chronic exacerbation, 2 stable chronic or 1 acute illness add add modifier 95 for video (do not use for phone, instead use 84944-27) [facility] [place] 06/04/2022 New patient,40-59min; chronic exacerbation, 2 stable chronic or 1 acute illness add add modifier 95 for video (do not use for phone, instead use 53022-28) [facility], ([place] 06/04/2022 New patient,40-59min; chronic exacerbation, 2 stable chronic or 1 acute illness add add modifier 95 for video (do not use for phone, instead use 19402-81) [facility], ([place]) 06/04/2022 New patient,40-59min; chronic exacerbation, 2 stable chronic or 1 acute illness add add modifier 95 for video (do not use for phone, instead use 84513-55) [facility] [place] 06/04/2022 Vital Signs Date of Collection Vitals 2022-06-04 10:06:44 Height - 157.48 cmWe ight - 68.04 kgBody Mass Index (BMI) - 27.44 kg/m2 Social History Social History Social History Observation Description Effec tive Time Current Smoking Status Never smoker 2024-07-26 2 Sex Female History of Procedures Procedures Service Procedure code Service date Servicing provider Phone# New patient,40-59min; chronic exacerbation, 2 stable chronic or 1 acute illness add add modifier 95 for video (do not use for phone, instead use 41139-00) [address] 2022-06-04 No Data Available No Data Availa [...] ilable Functional Status Functional Category Effective Dates SYSTEMS TRAINER assists with cooking, cl eaning and laundry. [...] Documented (1125F)Continue to see PCP. Follow-up with [facility] as needed for any acute or disease [...] Date Concern 2022-06-04 Visit completed by a perico and video. Patient/Guardian agreed to visit via [...]
== END 2024-08-06 10:14 | disposition home or self-care (01) ==
LOC: HO.MAMMO 10:13
PROVIDERS: Visit Provider Internal Medicine Geriatric Medicine
DX: Z12.31 Encounter for screening mammogram for malignant neoplasm of breast (principal)
CPT/HCPCS: 77063; 77067

== ENCOUNTER → 2024-08-06 11:00 | Outpatient (BNV) | payer OTHER, SELFPAY | PROVIDERS: Visit Provider Internal Medicine | DX: Z12.31 Encounter for screening mammogram for malignant neoplasm of breast (principal) | CPT/HCPCS: 77063; 77067 ==

== ENCOUNTER 2024-08-24 08:55 | Outpatient (REF) | payer OTHER, SELFPAY ==
[2024-08-27 11:58] LABS: TS Negative Control Passed; TS Panel A 0; TS Panel B 0; TS Positive Control Passed; TSpotTB Negative (Negative)
== END 2024-08-24 08:56 | disposition home or self-care (01) ==
LOC: HO.HHCL 08:55
PROVIDERS: PCP Internal Medicine Geriatric Medicine; Visit Provider Internal Medicine Geriatric Medicine
DX: Z11.1 Encounter for screening for respiratory tuberculosis (principal)
CPT/HCPCS: 36415; 86481

== ENCOUNTER 2024-10-16 10:44 | Outpatient (REF) | payer OTHER, SELFPAY ==
--- OUTSIDE RECORDS SUMMARY | 2024-06-09 06:10 | XMS_ITS ---
Author Organization [facility] Address [address] [place] [address] Care Team Providers Care Sales And Service Engineer Name Role Phone Name Hill HERNANDEZ Primary Care Provider James Kaur [phone] REASON FOR VISIT Patient presents today for an upper endo Encounters Encounter Location Date Provider Diagnosis [facility] [address] [place] [address] 06/09/2024 James Easton Plan Of Treatment Next Appt Details Provider Name:James Easton , 02/02/2025 09:30:00 AM, [address], [address], [place], [address], Progress Notes * RAFFAELE CHUNG EDOB:[birth year] (79 yo F)Acc No.[id number]:06/09/2024 Progress Notes Patient: RAFFAELE CARR Provider: Curt Easton MD :1945 A ge:79 Y S ex:Female Date:06/09/2024 Address:[address] [facility] [address], [place], [place] Pcp:Hill Dickson MD Subjective: * Chief Complaints: [...] 06/09/2024 Generated for Tejinder erickson/Andres/Jtitting on: 0 10/16/2024 09:28 AM EDT
--- NOTE | ~2024-10-16 | XR_ITS ---
EXAMINATION: XR SHOULDER, RIGHT CLINICAL INFORMATION: Right shoulder pain COMPARISON: Radiographs on May 20, 2024 TECHNIQUE: Three views of the right shoulder. FINDINGS: No dislocation. Severe degenerative changes at acromioclavicular joint. Mild degenerative changes at the glenohumeral joint. Apparent irregularity of the glenoid fossa, which could be due to degenerative changes . No abnormal soft tissue calcification. No interval changes. XR/XR shoulder RT min 2V IMPRESSION: Apparent irregularity of the glenoid fossa, could be due to degenerative changes, or in the appropriate clinical setting, posttraumatic changes. Electronically signed by: Maricruz Tavares MD 10/16/2024 11:39 AM EDT
--- NOTE | ~2024-10-16 | XR_ITS ---
EXAMINATION: XR KNEE, RIGHT CLINICAL INFORMATION: Patient with 3-months duration of right knee pain s/p fall. COMPARISON: February 11, 2024 TECHNIQUE: Three views of the right knee. FINDINGS: Mild lateral tilting of the patella. No acute fracture. Tricompartmental osteophyte formation. Joint space narrowing and subchondral sclerotic changes in the medial femorotibial joint space. No suprapatellar joint effusion. XR/XR knee RT 3V IMPRESSION: No acute fracture or dislocation. Electronically signed by: Maricruz Tavares MD 10/16/2024 11:44 AM EDT
--- OUTSIDE RECORDS SUMMARY | 2024-10-16 10:46 | XMS_ITS | Clinical Summary ---
Author Organization [facility] Address [address] [place] [address] Phone Care Team Providers Care Paper Sorter Name Role Phone Name, Hill HERNANDEZ Primary Care Provider [phone] Allergies No known active allergies Medications metformin HCl (METFORMIN ORAL) Take by mouth 2 (two) times a day. Active pravastatin sodium (PRAVASTATIN ORAL) Take by mouth daily. Active atorvastatin calcium (LIPITOR ORAL) Take by mouth daily. Active amitriptyline HCl (AMITRIPTYLINE ORAL) Take by mouth nightly at bedtime. Active Active Problems No known active problems Family History Medical History Relation Comments Stomach cancer Mother Breast cancer Sister Relation Status Comments Mother Sister Social History Tobacco Use Types Packs/Day Years Used Date Smoking Tobacco: Never Smokeless Tobacco: Never Alcohol Use Standard Drinks/Week Comments Yes 0 (1 standard drink = 0.6 oz pur e alcohol) occ Education Answer Date Recorded Are you interested in more education? Not on brandon e 06/22/2022 Are you concerned about learning? Not on file 06/22/2022 No 06/22/2022 No 06/22/2022 Digital Access Answer Date Recorded No 07/21/2022 No 07/21/2022 No 07/21/2022 Reliable internet access at home? Not on file 07/21/2022 Device with a working camera? Not on file Comments No Sex and Gender Information Value Date Recorded Sex Assigned at Not on file Legal Sex Female 8:31 AM EST Gender Identity Not on file Sexual Orientation Not on file Last Filed Vital Signs Vital Sign Reading Time Taken Comments Blood Pressure 102/62 08/19/2020 1:56 PM EDT Pulse - - Temperature - - Respiratory Rate - - Oxygen Saturation - - Inhaled Oxygen Concentration - - Weight 76.6 kg (168 lb 12.8 oz) 08/19/2020 1:56 PM EDT Height 152.1 cm (4' 11.9 ) 08/19/2020 1:56 PM ED T Body Mass Index 33.08 08/19/2020 1:56 PM EDT Plan of Treatment Health Maintenance Due Date Last Done Comments CREATININE LEVEL 1947 LIPID PANEL 1947 DEPRESSION SCREENING 1959 HEPATITIS C SCREENING 1965 OSTEOPOROSIS SCREENING INITI AL (ONE-TIME) 2012 ZOSTER VACCINES (2 of 3) 01/27/2014 12/02/2013 RSV VACCINE (1 - 1-dose 75+ series) 2022 COVID-19 VACCINE (3 - 2023-2 5 season) 2023 06/25/2020, 06/04/2020 Adult Td,Tdap Booster 08/01/2027 07/31/2017 , 05/19/2014, 07/08/2012 PNEUMOCOCCAL VACCINES (50+ years) Completed 11/20/2016, 07/08/2012 SMOKING STATUS SCREENING (On ce After 26 Yrs) Completed 08/19/2020 HEPATITIS A VACCINES Aged Out No long er eligible based on patient's age to complete this topic HIB VACCINES Aged Out No longer eligi ble based on patient's age to complete this topic MENINGOCOCCAL VACCINES (ACWY) Aged Out No longer eligible based on patient's age to complete this topic MENINGOCOCCAL VACCINES (B) Aged Out N o longer eligible based on patient's age to complete this topic Medical Devices Not on file Insurance [address] [address] [facility] MEDICARE [place] [address] [place] [address] [place] [address] [address] MEDICARE REPLACEMENT [facility] MEDICARE REPLACEMENT [facility] MEDICARE REPLACEMENT Care Teams Paper Sorter Relationship Specialty Start Date End Date Name, MD Hill [address] [place] [address] PCP - General Geriatric Psychiatry 01/07/20 Additional Source Comments The information contained in this document represents components of the legal health record. It is not the complete legal health record.[facility]
--- OUTSIDE RECORDS SUMMARY | 2024-10-16 10:46 | XMS_ITS | Encounter Summary ---
Author Organization [employer] Address [address] [facility] 7t [place] [address] Care Team Providers Care Systems Specialist Name Role Phone Name, Hill HERNANDEZ Primary Care Provider [phone] Reason for Visit * Reason Onset Date Comments Pre Op 10/02/2023 Encounter Details Date Type Department Care Team ([facility] st Contact Info) Description 10/02/[address] [facility] MEDICINE [address] [place] [address] Name, MD Hill [address] [place] [address] Pre Op Social History Tobacco Use Types [...] No Surgeon's name: Tomás Hopkins Facility name: [facility] Surgeon's office number: [phone] Surgeon's office fax number: [phone] Contact name: Yohana documented in this encounter Plan of Treatment Upcoming Encounters Date Type Department Care Team (Late st Contact Info) Description 12/14/2024 10:00 AM EDT Office Visit [facility] MEDICINE [address] [place] [address] Name, MD Hill [address] [place] [address] documented as of this encounter Visit Diagnoses Not on filedocumented in this encounter Additional Health Concerns Assessment Noted Time PHQ-9 Depression Total Score: 12 05/08/ 024 1:00 PM EDT documented as of this encounter Care Teams Systems Specialist Relationship Specialty Start Date End Date Name, MD Hill [address] [place] [address] PCP - General Family Medicine 03/15/15 documented as of this encounter
--- OUTSIDE RECORDS SUMMARY | 2024-10-16 10:46 | XMS_ITS | Encounter Summary ---
Author Organization [facility] Address [address] [place] [address] Care Team Providers Care Coat Room Attendant Name Role Phone Gina Fonseca MD Primary Care Provider [phone] Encounter Details Date Type Department Care Team (Late Contact Info) Description 06/10/2024 Lab Requisition [facility] - Main Lab [address] [facility] [place] [address] Behzad Conway MD [address] [place] [phone] Anemia, unspecified Social History Tobacco Use Types [...] Department Care Team (Late Contact Info) Description 12/28/2024 1:45 PM EST Office Visit Orthopedic Surgery - [place] [address] [address] Vicente Pearce DPM 175 [facility] [address] [place] [address] documented as of this encounter Visit Diagnoses Diagnosis Anemia, unspecified documented in this encounter Care Teams Coat Room Attendant Relationship Specialty Start Date End Date Gina Fonseca MD [address] [place], [place] PCP - General Internal Medicine 10/16/21 documented as of this encounter
--- OUTSIDE RECORDS SUMMARY | 2024-10-16 10:46 | XMS_ITS ---
Author Name MS. Hubert Sen APRN Address [address] [place] [address] Phone [phone] [facility] Care Team Providers Care Soccer Coach Name Role Phone Ruth Sen Unavailable [phone] Reason for Referral Not Available Allergies, adverse [...] 2021-12-05 No Data Available OneTouch Delica Plus [id number] Miscellaneous TEST BLOOD SUGAR THREE TIMES DAILY [...] (do not use for phone, instead use 76067-06) [facility], ([place]) 06/04/2022 Type 2 diabetes mellitus wit h other specified complicationHyperlipidemia, unspecifiedEssential (primary) hypertensionMajor depressive disorder, recurrent, in remission, unspecifiedPersonal history of (healed) traumatic fracture New patient,40-59min; chronic exacerbation, 2 stable chronic or 1 acute illness add add modifier 95 for video (do not use for phone, instead use 76071-31) [facility]/04/2022 New patient,40-59min; chronic exacerbation, 2 stable chronic or 1 acute illness add add modifier 95 for video (do not use for phone, instead use 96226-37) [facility]/04/2022 New patient,40-59min; chronic exacerbation, 2 stable chronic or 1 acute illness add add modifier 95 for video (do not use for phone, instead use 45218-51) [facility]/04/2022 New patient,40-59min; chronic exacerbation, 2 stable chronic or 1 acute illness add add modifier 95 for video (do not use for phone, instead use 32324-19) [facility]/04/2022 New patient,40-59min; chronic exacerbation, 2 stable chronic or 1 acute illness add add modifier 95 for video (do not use for phone, instead use 56990-28) [facility] 06/04/2022 New patient,40-59min; chronic exacerbation, 2 stable chronic or 1 acute illness add add modifier 95 for video (do not use for phone, instead use 18765-72) [facility], ([place] 06/04/2022 New patient,40-59min; chronic exacerbation, 2 stable chronic or 1 acute illness add add modifier 95 for video (do not use for phone, instead use 77271-59) [facility]/2022 Vital Signs Date of Collection Vitals 2022-06-04 10:06:44 Height - 157.48 cmWe ight - 68.04 kgBody Mass Index (BMI) - 27.44 kg/m2 Social History Social History Social History Observation Description Effec tive Time Current Smoking Status Never smoker 2024-09-26 2 Sex Female History of Procedures Procedures Service Procedure code Service date Servicing provider Phone# New patient,40-59min; chronic exacerbation, 2 stable chronic or 1 acute illness add add modifier 95 for video (do not use for phone, instead use 85309-87) 10476 2022-06-04 No Data Available No Data Availa [...] discussed and documented in the medical record beneficiary/patient did not wish to or was unable to provide an advance care plan or name a surrogate decision-maker. (1124F) 1124F 2022-06-04 No Data Available No Data Availa ble Pain Assessment - Pain Documented on a Pain Scale (1125F) 1125F 2022-06-04 No Data Available No Data Kassie ilable Functional Status Functional Category Effective Dates ASSISTANT IMPORT MANAGER assists with cooking, cl eaning and laundry. [...] modifier 95Advance care planning discussed and documented advance care plan or surrogate decision-maker was documented in the medical record. (1123F)Advance care planning discussed and documented in the medical record beneficiary/patient did not wish to or was [...] to visit via telehealth. [facility] Today, patient has chief [...]
== END 2024-10-16 10:45 | disposition home or self-care (01) ==
LOC: HO.HHCX 10:44
PROVIDERS: Visit Provider Family Medicine
DX: M25.511 Pain in right shoulder (principal); M25.561 Pain in right knee
CPT/HCPCS: 73030; 73562

== ENCOUNTER → 2024-10-16 10:46 | Outpatient (BNV) | payer OTHER, SELFPAY | PROVIDERS: Visit Provider Radiology Body Imaging | DX: M25.511 Pain in right shoulder (principal); M25.561 Pain in right knee; W19.XXXA Unspecified fall, initial encounter | CPT/HCPCS: 73030; 73562 ==

== ENCOUNTER 2024-11-10 10:22 | Outpatient (AMB) | payer OTHER, SELFPAY ==
--- OUTSIDE RECORDS SUMMARY | 2024-06-09 06:10 | XMS_ITS ---
Author Organization [facility] Address [address] [place] [address] Care Team Providers Care Office Assistant Receptionist Name Role Phone Name Hill HERNANDEZ Primary Care Provider James Kaur [phone] REASON FOR VISIT Patient presents today for an upper endo Encounters Encounter Location Date Provider Diagnosis [facility] [address] [place] [address] 06/09/2024 James Easton Plan Of Treatment Next Appt Details Provider Name:James Easton , 03/16/2025 11:00:00 AM, [address], [address], [place], [address], Progress Notes * RAFFAELE CHUNG EDOB:[birth year] (79 yo F)Acc No.[id number]:06/09/2024 Progress Notes Patient: RAFFAELE CARR Provider: Cutr Easton MD :1945 A ge:79 Y S ex:Female Date:06/09/2024 Address:[address] [facility] [address], [place], [place] Pcp:Hill Dickson MD Subjective: * Chief Complaints: [...] 06/09/2024 Generated for Tejinder erickson/Andres/Jtitting on: 0 11/10/2024 01:32 PM EDT
--- NOTE | 2024-11-10 10:24 | MHC.OFFVIS ---
Intake Visit Reasons: Right shoulder pain and weakness Intake Note: Azeb is a 79 year old female who presents with complaints of progressively worsening right shoulder pain and weakness. The patient states that she fell onto her shoulder approximately 6 months ago. Since that time her symptoms have gotten worse. She reports weakness when lifting her right hand above shoulder height. She has failed the last 6 weeks of conservative treatment which has included Tylenol, meloxicam, a home exercise program and physical therapy exercises. At this point her right shoulder pain and weakness or interfering with her activities of daily living and her ability Polysomnograph Tech Required: Yes Polysomnograph Tech Services: Polysomnograph Tech Present Polysomnograph Tech Name: [id number] Allergies No Known Allergies Allergy (Verified 11/10/24 10:29) Medication List - Last Reconciled 11/10/24 by Thiago Adames MD amitriptyline 50 mg PO BEDTIME lisinopril 2.5 mg PO DAILY magnesium oxide 400 mg PO DAILY melatonin 5 mg PO BEDTIME meloxicam 15 mg PO DAILY PRN metformin 850 mg PO BID omeprazole 20 mg PO DAILY@0630 pravastatin 10 mg PO DAILY PFSH Medical History Sacroiliac joint dysfunction Sacroiliitis Low back pain Primary osteoarthritis of knees, bilateral HTN (hypertension) Diabetes Arthritis Surgical History History of hysterectomy History of cholecystectomy Social History Alcohol intake: never Physical Exam Const Other: Well-nourished well-developed very friendly female awake alert and oriented x3 in no acute distress Extrem Other: Right shoulder examination shows decreased range of motion when compared to her left shoulder, 3/5 strength with supraspinatus testing, positive impingement signs, tenderness over her acromioclavicular joint, no instability Results Reviewed Results Reviewed: X-rays of the patient's right shoulder show severe acromioclavicular joint narrowing, a type 3 acromion, no acute bony abnormalities Assessment & Plan Assessment & Plan (1) Rotator cuff insufficiency of right shoulder: Code(s): M25.311 - Other instability, right shoulder Category: Medical Plan Ms. Kennedy presents with right shoulder pain and weakness due to impingement syndrome and possible rotator cuff tearing. Thus, I will send the patient for an MRI of her right shoulder for further evaluation. I will see her back once the MRI is completed to discuss the findings and treatment options. I spent 20 minutes in reviewing the patient's records and imaging studies, seeing the patient and documenting in the medical record. Orders: Orders MR shoulder RT wo con 11/11/24 M25.311 - Other instability, right shoulder Coding Level of Care Code Est Pt Level 3 (51072) Complex EM visit Add On G2211 Diagnoses Rotator cuff insufficiency of right shoulder M25.311
--- OUTSIDE RECORDS SUMMARY | 2024-11-10 13:32 | XMS_ITS | Encounter Summary ---
Author Organization [employer] Address [address] [facility] 7t [place] [address] Care Team Providers Care Program Engagement Director Name Role Phone Name, Hill HERNANDEZ Primary Care Provider [phone] Reason for Visit * Reason Onset Date Comments Pre Op 10/02/2023 Encounter Details Date Type Department Care Team ([facility] st Contact Info) Description 10/02/2023 Telephone [facility] MEDICINE [address] [place], [place] [phone] Name, MD Hill [address] [place] [address] Pre Op Social History Tobacco Use Types [...] No Surgeon's name: Tomás Hopkins Facility name: [facility] Surgeon's office number: [phone] Surgeon's office fax number: [phone] Contact name: Yohana documented in this encounter Plan of Treatment Upcoming Encounters Date Type Department Care Team (Late st Contact Info) Description 12/14/2024 10:00 AM EDT Office Visit [facility] MEDICINE [address] [place] [address] Name, MD Hill [address] [place] [address] documented as of this encounter Visit Diagnoses Not on filedocumented in this encounter Additional Health Concerns Assessment Noted Time PHQ-9 Depression Total Score: 12 05/08/ 024 1:00 PM EDT documented as of this encounter Care Teams Program Engagement Director Relationship Specialty Start Date End Date Name, MD Hill [address] [place] [address] PCP - General Family Medicine 03/15/15 documented as of this encounter
--- OUTSIDE RECORDS SUMMARY | 2024-11-10 13:32 | XMS_ITS ---
Author Name MS. Hubert Sen APRN Address [address] [place] [address] Phone [phone] [facility] Care Team Providers Care Staff Command And Control Officer Name Role Phone Ruth Sen Unavailable [phone] Reason for Referral Not Available Allergies, adverse [...] 2021-12-05 No Data Available OneTouch Delica Plus [id number] Miscellaneous TEST BLOOD SUGAR THREE TIMES DAILY [...] (do not use for phone, instead use 37047-53) [facility], ([place]) 06/04/2022 Type 2 diabetes mellitus wit h other specified complicationHyperlipidemia, unspecifiedEssential (primary) hypertensionMajor depressive disorder, recurrent, in remission, unspecifiedPersonal history of (healed) traumatic fracture New patient,40-59min; chronic exacerbation, 2 stable chronic or 1 acute illness add add modifier 95 for video (do not use for phone, instead use 10232-80) [facility], [place] 06/04/2022 New patient,40-59min; chronic exacerbation, 2 stable chronic or 1 acute illness add add modifier 95 for video (do not use for phone, instead use 63165-74) [facility], [place] 06/04/2022 New patient,40-59min; chronic exacerbation, 2 stable chronic or 1 acute illness add add modifier 95 for video (do not use for phone, instead use 56332-69) [facility]/20[place] New patient,40-59min; chronic exacerbation, 2 stable chronic or 1 acute illness add add modifier 95 for video (do not use for phone, instead use 04204-59) [facility]/20[place] New patient,40-59min; chronic exacerbation, 2 stable chronic or 1 acute illness add add modifier 95 for video (do not use for phone, instead use 63777-36) [facility] 06/04/2022 New patient,40-59min; chronic exacerbation, 2 stable chronic or 1 acute illness add add modifier 95 for video (do not use for phone, instead use 10529-34) [facility], ([place] 06/04/2022 New patient,40-59min; chronic exacerbation, 2 stable chronic or 1 acute illness add add modifier 95 for video (do not use for phone, instead use 29617-04) [facility], ([place] 06/04/2022 Vital Signs Date of Collection Vitals 2022-06-04 10:06:44 Height - 157.48 cmWe ight - 68.04 kgBody Mass Index (BMI) - 27.44 kg/m2 Social History Social History Social History Observation Description Effec tive Time Current Smoking Status Never smoker 2024-10-26 6 Sex Female History of Procedures Procedures Service Procedure code Service date Servicing provider Phone# New patient,40-59min; chronic exacerbation, 2 stable chronic or 1 acute illness add add modifier 95 for video (do not use for phone, instead use 52705-06) [address] 2022-06-04 No Data Available No Data Availa [...] ilable Functional Status Functional Category Effective Dates FILLER LEAF CUTTER LONG assists with cooking, cl eaning and laundry. [...] to visit via telehealth. [facility] Today, patient has chief [...]
--- OUTSIDE RECORDS SUMMARY | 2024-11-10 13:32 | XMS_ITS | Encounter Summary ---
Author Organization [facility] Address [address] [place] [address] Care Team Providers Care Sheeter Helper Name Role Phone Gina Fonseca MD Primary Care Provider [phone] Encounter Details Date Type Department Care Team (Late st Contact Info) Description 06/10/2024 Lab Requisition [facility] - Main Lab [address] [facility] [place] [address] Behzad Conway MD [address] [place] [phone] Anemia, unspecified Social History Tobacco Use Types [...] PM EST Office Visit Orthopedic Surgery - [place] [address] [phone] Vicente Pearce DPM 175 [facility] [address] [place] [address] documented as of this encounter Visit Diagnoses Diagnosis Anemia, unspecified documented in this encounter Care Teams Sheeter Helper Relationship Specialty Start Date End Date Gina Fonseca MD [address] [place], [place] PCP - General Internal Medicine 10/16/21 documented as of this encounter
--- OUTSIDE RECORDS SUMMARY | 2024-11-10 13:32 | XMS_ITS | Encounter Summary ---
Author Organization [facility] Address [id number] [place] [address] Care Team Providers Care Tankage Supervisor Name Role Phone Gina Fonseca MD Primary Care Provider [phone] Encounter Details Date Type Department Care Team (Late Contact Info) Description 06/04/2024 Lab Requisition [facility] - Main Lab [address] [facility] [place] [address] Behzad Conway MD [address] [place] [address] [phone] Anemia, unspecified; Type 2 diabetes mellitus without [...] PM EST Office Visit Orthopedic Surgery - [place] [address] [address] Vicente Pearce DPM [address] [address] documented as of this encounter Procedures Procedure Name Priority Date/Time Associated Diagnosis Comments COMPLETE BLOOD COUNT Routine 06/04/2024 7:34 AM EDT Anemia, unspecified Type 2 diabetes mellitus without complications (CMS/HCC V24, CMS/HCC V28) HEMOGLOBIN A1C Routine 06/04/2024 7:34 AM EDT Anemia, unspecified Type 2 diabetes mellitus without complications ([facility] V24, [facility] V28) COMPREHENSIVE METABOLIC PANEL Routine 06/04/2024 7:34 AM EDT Anemia, unspecified Type 2 diabetes mellitus without complications ([facility] V24, [facility] V28) documented in this encounter Results * (ABNORMAL) Hemoglobin A1c (06/04/2024 7:34 AM EDT) Pathologist [facility] Hemoglobin A1C 6.6(H) <6.5 % LAB CHEMISTRY METHOD 06/04/2024 12:34 PM EDT [facility] Mean Bld Glu Estim. 143 mg/dL LAB CHEMISTRY METHOD 06/04/2024 12:34 PM EDT [facility] Blood Venous blood specimen / Unknown Venipuncture / Unknown 06/04/2024 7:34 AM EDT 06/04/2024 9:59 AM EDT Behzad Conway MD LAB BLOOD ORDERABLES Final Result [facility] [address] [place] [address], * (ABNORMAL) Comprehensive metabolic panel (06/04/2024 7:34 AM EDT) [facility] Sodium 139 133 - 145 mmol/L LAB CHEMISTRY METHOD 06/04/2024 10:53 AM EDT [facility] Potassium 4.6 3.5 - 5.5 mmol/L LAB CHEMISTRY METHOD 06/04/2024 10:53 AM EDT [facility] Chloride 105 96 - 110 mmol/L LAB CHEMISTRY METHOD 06/04/2024 10:53 AM EDT [facility] CO2 30 21 - 32 mmol/L LAB CHEMISTRY METHOD 06/04/2024 10:53 AM [facility] Anion Gap 4 3 - 11 LAB CHEMISTRY METHOD 06/04/2024 10:53 AM [facility] Glucose 105(H) 70 - 100 mg/dL LAB CHEMISTRY METHOD 06/04/2024 10:53 AM [facility] BUN 18 5 - 25 mg/dL LAB CHEMISTRY METHOD 06/04/2024 10:53 AM [facility] Creatinine 0.74 0.50 - 1.10 mg/dL LAB CHEMISTRY METHOD 06/04/2024 10:53 AM [facility] eGFR 83 >=60 mL/min/1. 73m2 LAB CHEMISTRY METHOD 06/04/2024 10:53 AM [facility] Comment:Calculation based on the Chronic Kidney Disease Epidemiology Collaboration (CKD-EPI) equation refit without adjustment for race. BUN/Creatinine Ratio 24.3 LAB CHEMISTRY METHOD 06/04/2024 10:53 AM [facility] Calcium 9.2 8.5 - 10.5 mg/dL LAB CHEMISTRY METHOD 06/04/2024 10:53 AM [facility] AST (SGOT) 37 10 - 42 unit/L LAB CHEMISTRY METHOD 06/04/2024 10:53 AM [facility] ALT (SGPT) 38 10 - 60 unit/L LAB CHEMISTRY METHOD 06/04/2024 10:53 AM [facility] Alkaline Phosphatase 112 42 - 121 unit/L LAB CHEMISTRY METHOD 06/04/2024 10:53 AM [facility] Total Protein 7.3 6.0 - 8.0 g/dL LAB CHEMISTRY METHOD 06/04/2024 10:53 AM [facility] Albumin 3.7 3.2 - 5.0 g/dL LAB CHEMISTRY METHOD 06/04/2024 10:53 AM [facility] Total Bilirubin 0.4 0.0 - 1.4 mg/dL LAB CHEMISTRY METHOD 06/04/2024 10:53 AM EDT [facility] Blood Venous blood specimen / Unknown Venipuncture / Unknown 06/04/2024 7:34 AM EDT 06/04/2024 9:59 AM EDT us Behzad Conway MD LAB BLOOD ORDERABLES Final Result [facility] [address] [place] [address], * (ABNORMAL) Complete blood count (06/04/2024 7:34 AM EDT) WBC 5.6 4.8 - 10.8 K/mcL LAB HEMETOLOGY METHOD 06/04/2024 10:31 AM [facility] RBC 4.10 3.80 - 4.80 M/mcL LAB HEMETOLOGY METHOD 06/04/2024 10:31 AM [facility] Hemoglobin 12.7 11.5 - 16.0 g/dL LAB HEMETOLOGY METHOD 06/04/2024 10:31 AM [facility] Hematocrit 39.9 35.0 - 47.0 % LAB HEMETOLOGY METHOD 06/04/2024 10:31 AM [facility] MCV 97.8 79.0 - 98.0 FL LAB HEMETOLOGY METHOD 06/04/2024 10:31 AM [facility] MCH 31.1 27.0 - 32.0 pcg LAB HEMETOLOGY METHOD 06/04/2024 10:31 AM [facility] MCHC 31.8(L) 32.0 - 37.0 g/dL LAB HEMETOLOGY METHOD 06/04/2024 10:31 AM [facility] RDW 13.2 11.0 - 15.0 % LAB HEMETOLOGY METHOD 06/04/2024 10:31 AM EDT [facility] Platelets 200 130 - 400 K/mcL LAB HEMETOLOGY METHOD 06/04/2024 10:31 AM EDT [facility] MPV 11.4(H) 7.0 - 11.0 FL LAB HEMETOLOGY METHOD 06/04/2024 10:31 AM EDT [facility] NRBC 0.0 <1.0 % LAB HEMETOLOGY METHOD 06/04/2024 10:31 AM EDT [facility] NRBC Absolute 0.00 <0.10 K/mcL LAB HEMETOLOGY METHOD 06/04/2024 10:31 AM EDT [facility] Blood Venous blood specimen / Unknown Venipuncture / Unknown 06/04/2024 7:34 AM EDT 06/04/2024 9:59 AM EDT us Behzad Conway MD LAB BLOOD ORDERABLES Final Result [facility] [address] [place] [address], documented in this encounter Visit Diagnoses Diagnosis Anemia, unspecified Type 2 diabetes mellitus without complications (CMS/HCC V24, CMS/HCC V28) documented in this encounter Care Teams Tankage Supervisor Relationship Specialty Start Date End Date Gina Fonseca MD [address] [place] [address] PCP - General Internal Medicine 10/16/21 documented as of this encounter
--- OUTSIDE RECORDS SUMMARY | 2024-11-10 13:32 | XMS_ITS | Encounter Summary ---
Author Organization [employer] Address [address] [facility] 7t [place] [address] Care Team Providers Care Cobbler Upper Name Role Phone Name, Hill HERNANDEZ Primary Care Provider [phone] Reason for Visit * Reason Comments Med Refill Encounter Details Date Type Department Care Team ([facility] st Contact Info) Description 07/02/[address] [facility] MEDICINE [address] [place], [place] [phone] Name, MD Hill [address] [place] [address] Social History Tobacco Use Types Packs/Day Years [...] AM EDT Office Visit [facility] [address] [place] [address] Name, MD Hill [address] [place] [address] documented as of this encounter Visit Diagnoses Not on filedocumented in this encounter Additional Health Concerns Assessment Noted Time PHQ-9 Depression Total Score: 4 03/17/19 25 2:14 PM EST documented as of this encounter Care Teams Cobbler Upper Relationship Specialty Start Date End Date NameHill MD [address] [place] [address] PCP - General Family Medicine 03/15/15 documented as of this encounter
--- OUTSIDE RECORDS SUMMARY | 2024-11-10 13:33 | XMS_ITS | Clinical Summary ---
Author Organization [address] [place] [address] Address 175 [place] [address] Phone Care Team Providers Care Civil Project Engineer Name Role Phone Gina Fonseca MD [...] 2, uncontrolled HTN (hypertension) 07/08/2012 Insomnia 07/08/2012 Immunizations Name Administration Dates Next Due PPD [...] right leg BREAST REDUCTION 2009 Bilateral PROCEDURE: [place] BREAST REDUCTION Medical History Medical History Date Comments Unspecified essential hypertension DX:Unspecified essential hypertension DM type 2 (diabetes mellitus , type 2) ([facility] V24, [facility] V28) 12/24/2012 DX:DM type 2 (diabetes hailee itus, type 2) ([facility]) Family History Medical History Relation Name Comments Cataracts Father Glaucoma Father Breast cancer Mother 75 Breast cancer Sister 1 70 Blindness Neg Hx Macular degeneration Neg Hx Strabismus Neg Hx Relation Name Status Comments Daughter Alive HTN Father GA and DM Mother 75 Breast cancer Sister [...] Care Team (Late st Contact Info) Description 12/28/2024 1:45 PM EST Office Visit Orthopedic Surgery - [place] [address] [address] Vicente Pearce, DPM [address] [phone] Health Maintenance Due Date Last Done Comments Diabetes: Annual Foot Exam 1955 Diabetes: Annual Retina Eye Exam 1955 Zoster Vaccines (2 of 3) 01/27/2014 12/02/2013 Falls Risk Assessment 01/28/2022 Medicare Annual Wellness Visit 01/28/2022 Osteoporosis Screening (Bone Density Screening) 01/28/2022 Social Influencers of Health Screening 01/28/2022 RSV Immunization Adult Patients (1 - 1-dose 75+ series) 2022 Diabetes: Annual Urine Albumin-Creatinine Ratio (uACR) 01/08/2024 08/27/2014 Depression Screening 02/26/2024 COVID-19 Vaccine ( season) 2024 03/08/2022, 01/04/2021, 06/25/2020, Additional history exists Influenza Vaccine (#1) 2024 11/15/2008 Diabetes: Blood Sugar Control Test (HGBA1C) 12/04/2024 06/04/2024, 03/17/2024, 08/12/2023, Additional history exists Diabetes: Annual GFR (Glomerular Filtration Rate) 06/11/2025 06/11/2024, 06/04/2024, 11/18/2023, Additional history exists Hypertension/CHF/CAD Annual BMP Blood Test 06/11/2025 06/11/2024, 06/04/2024, 11/18/2023, Additional history exists Cholesterol Screening (Lipid Panel) 06/11/2029 06/11/2024, 09/09/2023, 04/04/2015 DTaP,Tdap,and Td Vaccines (5 - [...] Procedure Name Priority Date/Time Associated Diagnosis Comments COMPREHENSIVE METABOLIC PANEL Routine 06/04/2024 7:34 AM EDT Anemia, unspecified Type 2 diabetes mellitus without complications (CMS/HCC V24, CMS/[facility] V28) HEMOGLOBIN A1C Routine 06/04/2024 7:34 AM EDT Anemia, unspecified Type 2 diabetes mellitus without complications (CMS/HCC V24, CMS/HCC V28) SCR MAMMO BI INCL CAD Routine 08/11/2018 1:13 PM EDT Encounter for screening mammogram for malignant neoplasm of breast LIPID PANEL Routine 04/04/2015 HM URINE ALBUMIN CREATININE RATIO Routine 08/27/2014 HEPATITIS C SCREENING Routine 09/15/2012 from Last 3 Months or Most Recently Relevant to Health Maintenance Results * (ABNORMAL) Hemoglobin A1c (06/04/2024 7:34 AM EDT) Pathologist [facility] Hemoglobin A1C 6.6(H) <6.5 % LAB CHEMISTRY METHOD 06/04/2024 12:34 PM EDT [facility] Mean Bld Glu Estim. 143 mg/dL LAB CHEMISTRY METHOD 06/04/2024 12:34 PM EDT [facility] Blood Venous blood specimen / Unknown Venipuncture / Unknown 06/04/2024 7:34 AM EDT 06/04/2024 9:59 AM EDT Behzad Conway MD LAB BLOOD ORDERABLES Final Result [facility] [address] [place] [address], * (ABNORMAL) Comprehensive metabolic panel (06/04/2024 7:34 AM EDT) [facility] Sodium 139 133 - 145 mmol/L LAB CHEMISTRY METHOD 06/04/2024 10:53 AM [facility] Potassium 4.6 3.5 - 5.5 mmol/L LAB CHEMISTRY METHOD 06/04/2024 10:53 AM [facility] Chloride 105 96 - 110 mmol/L LAB CHEMISTRY METHOD 06/04/2024 10:53 AM [facility] CO2 30 21 - 32 mmol/L LAB CHEMISTRY METHOD 06/04/2024 10:53 AM [facility] Anion Gap 4 3 - 11 LAB CHEMISTRY METHOD 06/04/2024 10:53 AM [facility] Glucose 105(H) 70 - 100 mg/dL LAB CHEMISTRY METHOD 06/04/2024 10:53 AM [facility] BUN 18 5 - 25 mg/dL LAB CHEMISTRY METHOD 06/04/2024 10:53 AM [facility] Creatinine 0.74 0.50 - 1.10 mg/dL LAB CHEMISTRY METHOD 06/04/2024 10:53 AM [facility] eGFR 83 >=60 mL/min/1. 73m2 LAB CHEMISTRY METHOD 06/04/2024 10:53 AM [facility] Comment:Calculation based on the Chronic Kidney Disease Epidemiology Collaboration (CKD-EPI) equation refit without adjustment for race. BUN/Creatinine Ratio 24.3 LAB CHEMISTRY METHOD 06/04/2024 10:53 AM [facility] Calcium 9.2 8.5 - 10.5 mg/dL LAB CHEMISTRY METHOD 06/04/2024 10:53 AM [facility] AST (SGOT) 37 10 - 42 unit/L LAB CHEMISTRY METHOD 06/04/2024 10:53 AM [facility] ALT (SGPT) 38 10 - 60 unit/L LAB CHEMISTRY METHOD 06/04/2024 10:53 AM [facility] Alkaline Phosphatase 112 42 - 121 unit/L LAB CHEMISTRY METHOD 06/04/2024 10:53 AM [facility] Total Protein 7.3 6.0 - 8.0 g/dL LAB CHEMISTRY METHOD 06/04/2024 10:53 AM [facility] Albumin 3.7 3.2 - 5.0 g/dL LAB CHEMISTRY METHOD 06/04/2024 10:53 AM [facility] Total Bilirubin 0.4 0.0 - 1.4 mg/dL LAB CHEMISTRY METHOD 06/04/2024 10:53 AM [facility] Blood Venous blood specimen / Unknown Venipuncture / Unknown 06/04/2024 7:34 AM EDT 06/04/2024 9:59 AM EDT Behzad Conway MD LAB BLOOD ORDERABLES Final Result [facility] [address] [place] [address], * SCR MAMMO BI INCL CAD (08/11/2018 [...] reviewed with CAD and compared to previous. The breasts are composed of fatty and fibroglandular tissue. No suspicious mass, architectural distortion or suspicious calcifications [...] cancer risk category Low (<15%) us Hill Dickson MD IMG XR PROCEDURES Final Result * (ABNORMAL) Lipid panel (04/04/2015) LDL/HDL Ratio 4 0 - 4 Triglycerides 223(A) 0 - 150 mg/dL Cholesterol 194 0 - 200 mg/dL HDL 1(A) >=40 mg/dL LDL Cholesterol 96 0 - 100 mg/dL Blood Venous blood specimen / Unknown Historical Provider LAB BLOOD ORDERABLES Lina l Result * Urine Albumin Creatinine Ratio (08/27/2014) Urine Albumin Creatinine Ratio abstracted Historical Provider HEALTH MAINTENANCE Final Result * Hepatitis C Screening (09/15/2012) Hepatitis C Screening abstracted [facility] Provider HEALTH MAINTENANCE Final Result from Last 3 Months or Most Recently Relevant to Health Maintenance Insurance [facility] Member Subscriber Plan / Payer (Ef fective 2023-Present) Name:Azeb Kennedy Relation to Subscriber:Self Name:Azeb Kennedy Payer ID:[id number] Group ID:[id number] Type:Not on file Address: [place] [address] [address] [phone] Care Teams Civil Project Engineer Relationship Specialty Start Date End Date Gina Fonseca MD [address] [place], [place] PCP - General Internal Medicine 10/16/21
--- OUTSIDE RECORDS SUMMARY | 2024-11-10 13:33 | XMS_ITS | Encounter Summary ---
Author Organization [employer] Address [address] [facility] 7t [place] [address] Care Team Providers Care Jitterbug Operator Name Role Phone Name, Hill HERNANDEZ Primary Care Provider [phone] Reason for Visit * Reason Onset Date Comments Med Refill telephone call 10/20/2022 CLIENT SUPPORT MANAGER Services 10/20/2022 The pt requested to have her CLIENT SUPPORT MANAGER services reinstated by CHUYITA. I called to inform her, that she needs to contact her insurance [facility] to make the request, because the referral needs to go through them. I reached a voicemail, and left a msg with the above information. I asked her to contact me at ext [phone], if she has any questions. Encounter Details Date Type Department Care Team (Late st Contact Info) Description 10/20/2022 Refill [facility] MED[facility]INE [address] [place] [address] Name, MD Hill [address] [place] [address] Social History Tobacco Use Types Packs/Day Years [...] EDT The pt requested to have her CLIENT SUPPORT MANAGER services reinstated by CHUYITA. I called to inform her, that she needs to contact her insurance [facility] to make the request, because the referral needs to go through them. I reached a voicemail, and left a msg with the above information. I asked her to contact me at ext [phone], if she has any questions. * Telephone Encounter - Hope Zora - 10/22/2022 10:20 AM EDT Pt walked in requesting a call from PCP or nurses, because she has a question about sulfur chloride operator services and a form that her pcp signed and she has not hear anything from no one she doesn't specify exactly what she needs, she just wants the call. I told her to go to medical records she said they don't havethe form. Best # to call is [phone] documented in this encounter Plan of Treatment Upcoming Encounters Date Type Department Care Team (Late st Contact Info) Description 12/14/2024 10:00 AM EDT Office Visit [facility] MED[facility]INE [address] [place] [address] Name, MD Hill [address] [place] [address] documented as of this encounter Visit Diagnoses Not on filedocumented in this encounter Additional Health Concerns Assessment Noted Time PHQ-9 Depression Total Score: 19 023 1:35 PM EDT documented as of this encounter Care Teams Jitterbug Operator Relationship Specialty Start Date End Date Name, MD Hill [address] [place] [address] PCP - General Family Medicine 03/15/15 documented as of this encounter
--- OUTSIDE RECORDS SUMMARY | 2024-11-10 13:33 | XMS_ITS | Encounter Summary ---
Author Organization [employer] Address [address] [facility] 7t [place] [address] Care Team Providers Care Mechanical Maintenance Supervisor Name Role Phone Name, Hill HERNANDEZ Primary Care Provider [phone] Reason for Visit * Reason Onset Date Comments Pre-op Visit 04/25/2023 Encounter Details Date Type Department Care Team ([facility] st Contact Info) Description 04/25/2023 Telephone [facility] [address] [place], [place] [phone] Name, MD Hill [address] [place] [address] Pre-op Visit Social History Tobacco Use Types [...] Lab needed: No EKG: No Surgeon's name: [facility] name: [facility] Surgeon's office number: [phone] Surgeon's office fax number: [phone] Contact name (person you spoke with): Patricia Last office note from surgeon requested documented in this encounter Plan of Treatment Upcoming Encounters Date Type Department Care Team (Late st Contact Info) Description 12/14/2024 10:00 AM EDT Office Visit [facility] [address] [place] [address] Name, MD Hill [address] [place] [address] documented as of this encounter Visit Diagnoses Not on filedocumented in this encounter Additional Health Concerns Assessment Noted Time PHQ-9 Depression Total Score: 0 03/07/19 24 8:57 AM EST documented as of this encounter Care Teams Mechanical Maintenance Supervisor Relationship Specialty Start Date End Date Name, MD Hill [address] [place] [address] PCP - General Family Medicine 03/15/15 documented as of this encounter
--- OUTSIDE RECORDS SUMMARY | 2024-11-10 13:33 | XMS_ITS | Patient Health Record ---
Author Organization [facility] Address [address] [place] [address] Care Team Providers Care Curtain Mender Name Role Phone Name Hill HERNANDEZ Primary Care Provider James Kaur [phone] Allergies No Known Allergies Reason For Referral No Information Medications Medication SIG (Take, Route, Frequency, Duration) Notes Start Date End Date Status Amitriptyline HCl 25 MG 1 tablet at bedt juan josé Orally Once a day Active Tylenol 8 Hour Arthritis Pain 650 MG 2 tablets as needed Orally every 8 hrs Active Omeprazole 20 MG TAKE 1 CAPSULE BY [facility] DAILY IN THE MORNING Oral for [...] Problem Status W/U Status Risk Notes Problem 876256587 Colon cancer screening (Z12.11) Active confirmed Problem 252894038 Gastroesophageal reflux disease without esophagitis (K21.9) Active confirmed Problem 209549847 Gastroesophageal reflux disease, esophagitis presence not specified (K21.9) Active confirmed Problem 72007773 Constipation, unspecified constipation type (K59.00) Active confirmed Encounters Encounter Location Date Provider Diagnosis [facility] [address] [place] [phone] 05/21/2024 James Easton [facility] [address] [place] [address] 06/09/2024 James Easton [facility] [address] [place] [address] 11/02/2024 James Easton Plan Of Treatment Future Test Test Name Order Date COLONOSCOPY 12/02/2013 Next Appt Details Provider Name:James Easton , 03/16/2025 11:00:00 AM, [address], [address], [place], [address], Insurance Providers Payer Name Payer Address Payer Phone Subscriber Number Group Number Insured Name Patient Relationship to Insured Coverage Start Date Coverage End Date [facility] [address] [place] [address] [id number] RAFFAELE CHUNG Self - patient is the insured Medical (General) History Medical History History ICD Code Tubular adenomas removed in 2004. She had negative followup colonoscopies in 06/2008 and in 02/2014. Diverticulosis GERD--EGD in 2004-small HH--no sig. esop hagitis nor Mccall's Denies PR,CVA,Lung disease,renal disease NIDDM Surgical History Surgery Date(Month/Year) Cholecystectomy Tubal ligation Hysterectomy with ? removal of one ovary Breast reduction Left foot 08/2021
--- OUTSIDE RECORDS SUMMARY | 2024-11-10 13:33 | XMS_ITS | Clinical Summary ---
Author Organization [facility] Address [address] [facility] [address] [place] [address] Phone Care Team Providers Care Learning And Development Analyst Name Role Phone Name, Hill HERNANDEZ Primary Care Provider [phone] Allergies No known active allergies Medications metformin [...] VACCINE (1 - 1-dose 75+ series) 2022 INFLUENZA VACCINE (#1) 2024 11/15/2008 COVID-19 VACCINE (3 - 2024-2 6 season) 2024 06/25/2020, 06/04/2020 Adult Td,Tdap Booster 08/01/2027 07/31/2017 [...] topic Medical Devices Not on file Insurance [id number] [place] [address] [facility] DUAL MEDICARE REPLACEMENT [id number] [place] [address] [facility] DUAL MEDICARE REPLACEMENT [id number] [place] [address] [facility] DUAL MEDICARE REPLACEMENT [id number] [place] [address] [facility] DUAL MEDICARE REPLACEMENT [id number] [facility] DUAL MEDICARE REPLACEMENT [id number] [place] [address] [facility] DUAL MEDICARE REPLACEMENT [facility] DUAL MEDICARE REPLACEMENT [address] [place] [address] DUAL MEDICARE REPLACEMENT [facility] DUAL MEDICARE REPLACEMENT [place] [id number] Care Teams Learning And Development Analyst Relationship Specialty Start Date End Date Name, MD Hill [address] [place] [address] PCP - General Geriatric Psychiatry 01/07/20 Additional Source Comments The information contained in this document represents components of the legal health record. It is not the complete legal health record.[facility]
--- OUTSIDE RECORDS SUMMARY | 2024-11-10 13:33 | XMS_ITS | Encounter Summary ---
Author Organization [employer] Address [address] [facility] [address]t [place] [address] Care Team Providers Care Toll Transmission Worker Name Role Phone Name, Hill HERNANDEZ Primary Care Provider [phone] Reason for Visit * Reason Onset Date Comments FYI 05/07/2023 Encounter Details Date Type Department Care Team ([facility] st Contact Info) Description 05/07/2023 Telephone [facility] MEDICINE [address] [place], [place] [phone] Name, MD Hill [address] [place] [address] Social History Tobacco Use Types Packs/Day Years [...] the days 05/09/2023 1:00 PM Jayne Hannon Poor appetite or overeating More than half [...] blood pressure and Charla rojas advised by song writer that pt was seen yesterday and have an appt on . Any questions to Dennise [phone] documented in this encounter Plan of Treatment Upcoming Encounters Date Type Department Care Team (Late st Contact Info) Description 12/14/2024 10:00 AM EDT Office Visit [facility] MEDICINE [address] [place] [phone] Name, MD Hill [address] [place] [address] documented as of this encounter Visit Diagnoses Not on filedocumented in this encounter Additional Health Concerns Assessment Noted Time PHQ-9 Depression Total Score: 0 03/07/19 24 8:57 AM EST documented as of this encounter Care Teams Toll Transmission Worker Relationship Specialty Start Date End Date Name, MD Hill [address] [place] [id number] PCP - General Family Medicine 03/15/15 documented as of this encounter
--- OUTSIDE RECORDS SUMMARY | 2024-11-10 13:33 | XMS_ITS | Encounter Summary ---
Author Organization [employer] Address [address] [facility] 7t [place] [address] Care Team Providers Care Account Assistant Name Role Phone Name, Hill HERNANDEZ Primary Care Provider [phone] Reason for Visit * Reason Onset Date Comments requesting a call 09/04/2022 Encounter Details Date Type Department Care Team ([facility] st Contact Info) Description 09/04/2022 Telephone [facility] MEDICINE [address] [place] [address] [phone] Name, MD Hill [address] [place] [address] requesting a call Social History Tobacco Use [...] - 09/05/2022 2:46 PM EDT T/C to [phone] for below message through [employer]asty id - [id number] for below message, pt. States she is all set, she does not has any question right now. Pt. Advised to give call to [facility] if any questions or concerns. * Telephone Encounter - Hemalatha Rodriguez - 09/04/2022 2:39 PM EDT Tc from pt requesting a call. Pt did not go in to detail and is aware of upcoming appointment. Please contact pt at [phone] (Nepali speaker) documented in this encounter Plan of Treatment Upcoming Encounters Date Type Department Care Team (Late st Contact Info) Description 12/14/2024 10:00 AM EDT Office Visit [facility] MEDICINE [address] [place] [phone] Name, MD Hill [address] [place] [phone] documented as of this encounter Visit Diagnoses Not on filedocumented in this encounter Additional Health Concerns Assessment Noted Time PHQ-9 Depression Total Score: 19 023 1:35 PM EDT documented as of this encounter Care Teams Account Assistant Relationship Specialty Start Date End Date Name, MD Hill [address] [place] [phone] PCP - General Family Medicine 03/15/15 documented as of this encounter
--- OUTSIDE RECORDS SUMMARY | 2024-11-10 13:33 | XMS_ITS | Encounter Summary ---
Author Organization [employer] Address [address] [facility] 7[address] [place] [address] Care Team Providers Care Employee Benefits Insurance Agent Name Role Phone Name, Hill HERNANDEZ Primary Care Provider [phone] Reason for Visit * Reason Onset Date Comments Call Back Request 02/01/2023 Encounter Details Date Type Department Care Team ([facility] st Contact Info) Description 02/01/2023 Telephone [facility] MEDICINE [address] [place], [place] [phone] Name, MD Hill [address] [place] [address] Call Back Request Social History Tobacco Use [...] 2:16 PM EST T/C to pt. Through [employer] id - [id number] for below message to inform submit paperwork regarding ACCOUNTANT hours at medical records/ forms dept. Pt. Verbally agreed and understood. * Telephone Encounter - Aylin Duncan - 02/01/2023 3:37 PM EST Tc from pt requesting a call back in regards paperwork for ACCOUNTANT hours. documented in this encounter Plan of Treatment Upcoming Encounters Date Type Department Care Team (Late st Contact Info) Description 12/14/2024 10:00 AM EDT Office Visit [facility] MEDICINE [address] [place] [phone] Name, MD Hill [address] [place] [address] documented as of this encounter Visit Diagnoses Not on filedocumented in this encounter Additional Health Concerns Assessment Noted Time PHQ-9 Depression Total Score: 19 023 1:35 PM EDT documented as of this encounter Care Teams Employee Benefits Insurance Agent Relationship Specialty Start Date End Date NameHill MD [address] [place] [phone] PCP - General Family Medicine 03/15/15 documented as of this encounter
--- OUTSIDE RECORDS SUMMARY | 2024-11-10 13:33 | XMS_ITS | Clinical Summary ---
Author Organization [employer] Address [address] [facility] [address] [place] [address] Care Team Providers Care Remodeler Name Role Phone Name, Hill HERNANDEZ Primary Care Provider [phone] Allergies No known active allergies Medications * This document contains information received from the source organization and may not represent a complete record from that organization. Lancets (OneTouch Delica Plus [id number]) misc TEST BLOOD SUGAR THREE TIMES DAILY 3 Active omega-3 (Fish Oil) 1000 MG capsule Active SUMAtriptan (Imitrex) 25 MG tablet Take 1 tablet (25 mg) by mouth 1 (one) time if needed for migraine for up to 9 doses. May repeat dose once in 2 hours if no relief. Do not exceed 2 doses in 24 hours. 9 tablet 3 Active Misc. Devices (Pulse Oximeter) miscIndications: COVID-19 1 each 3 times daily. 1 each 3 Active empagliflozin (Jardiance) 10 MG Take 1 tablet (10 mg) by mouth in the morning. 30 tablet 11 4 Active Lancets (OneTouch Delica Plus [id number]) miscIndications: Diabetes mellitus type 2 in obese TEST BLOOD SUGAR THREE TIMES DAILY 100 each 11 4 Active chlorhexidine (Peridex) 0.12 % solution Swish 15 mL morning and night for 1 minute. Spit, do not swallow. Do not eat or drink for 30 minutes following use. 473 mL 4 Active pravastatin (Pravachol) 10 MG tablet Take 1 tablet (10 mg) by mouth Once per day. 90 tablet 3 4 Active Diclofenac Sodium 1 % gelIndications:C hronic low back pain, unspecified back pain laterality, unspecified whether sciatica present Apply thin layer twice a day to the affected area 100 g 2 4 Active cetirizine (ZyrTEC) 10 MG tablet Take 1 tablet (10 mg) by mouth Once per day. 60 tablet 4 Active Romy-Dryl 25 MG tablet TAKE 1 TABLET BY MOUTH AT BEDTIME NEEDED FOR SLEEP 30 tablet 4 Active lidocaine-priloc jeanne (Emla) 2.5-2.5 % cream Apply topically if needed in the morning and at bedtime for mild pain. 30 g 4 Active Blood Glucose Monitoring Suppl (ONE TOUCH ULTRA 2) w/Device kit TEST BLOOD SUGAR THREE TIMES DAILY 1 kit 5 Active metFORMIN (Glucophage) 850 MG tabletIndication s:Type 2 diabetes mellitus with other specified complication, without long-term current use of insulin (CMS/HCC),Essent ial hypertension TAKE 1 TABLET BY MOUTH TWICE DAILY WITH BREAKFAST AND WITH DINNER 60 tablet 11 5 Active oxyCODONE (Roxicodone) 5 MG immediate release tabletIndication s:Shoulder injury, right, initial encounter Take 1 tablet (5 mg) by mouth if needed in the morning, at noon, and at bedtime for severe pain. May cause drowsiness and dizziness. Try using at bedtime initially. 12 tablet 5 Active ketorolac (Acular) 0.5 % ophthalmic solution INSTILL 1 DROP THE OPERATIVE EYE THREE TIMES DAILY. START 2 DAYS BEFORE SURGERY. TAPER DIRECTED 4 Active ofloxacin (Ocuflox) 0.3 % ophthalmic solution PLACE 1 DROP IN THE RIGHT EYE FOUR TIMES DAILY STARTING 1 DAY AFTER PROCEDURE APPOINTMENT 4 Active prednisoLONE acetate (Pred-Forte) 1 % ophthalmic suspension PLACE 1 DROP IN THE RIGHT EYE FOUR TIMES DAILY STARTING 1 DAY AFTER PROCEDURE APPOINTMENT 4 Active glucose blood (OdiloTouch Ultra Test) test stripIndications :Type 2 diabetes mellitus with other specified complication, without long-term current use of insulin (CMS/HCC) TEST BLOOD SUGAR THREE TIMES DAILY 150 strip 11 5 Active lisinopril 2.5 MG tabletIndication s:Essential hypertension TAKE 1 TABLET BY MOUTH EVERY DAY IN THE MORNING 90 tablet 1 5 Active omeprazole (PriLOSEC) [address] capsule TAKE 1 CAPSULE BY MOUTH EVERY MORNING 30 capsule 3 5 Active lemborexant (DayVigo) 10 MG tabletIndication s:Primary insomnia Take 1 tablet (10 mg) by mouth if needed at bedtime for sleep (3 month supply due to travel). 90 tablet 5 025 Active predniSONE (Deltasone) 20 MG tabletIndication s:Right shoulder pain, unspecified chronicity Take 2 tablets (40 mg) by mouth Once per day for 5 days. 10 tablet 5 025 Active Problems Problem Noted Date Diagnosed [...] Health Integration Plan Internal Follow up with [facility] Patient Self Plan Patient to utilize skills provided in intervention , Patient [facility], Comply with medication , and Patient to reach out to [facility] as needed. Pt declined OP referral and agreed to meet with clinician in three weeks to get support during her grieving process. COVID-19 02/21/2023 Assessment & Plan (10/05/2024 9:24 AM EDT): 10/05/24 COVID-19 negative. -No evidence of respiratory distress. Denies symptoms. -No evidence of dehydration. -ER precautions discussed. -Seek medical attention for worsening symptoms. Orders: POCT COVID-19 Ag Ribeiro ID NOW Assessment & Plan (02/21/2023 3:17 PM EST): [...] Health Integration Plan Internal Follow up with [facility] Patient Self Plan Patient to utilize skills provided in intervention , [facility] as [facility], Comply with medication [...] Encounters Date Type Department Care Team Description 10/29/2024 8:40 AM EDT Office Visit [facility] [address] [place] [address] Alejo Miranda MD Right shoulder pain, unspecified chronicity (Primary Dx) 10/29/2024 Travel 10/19/2024 Telephone [facility] [address] [place] [address] Alejo Miranda MD 10/16/2024 10:00 AM EDT Office Visit [facility] [address] [address] Alejo Miranda MD Right shoulder pain, unspecified chronicity (Primary Dx) 10/05/2024 9:00 AM EDT Office Visit [facility] [address] [address] Vaishali Gee MD COVID-19 (Primary Dx) 10/05/2024 Travel 10/01/2024 8:40 AM EDT Office Visit [facility] [address] [address] Alejo Miranda MD COVID-19 (Primary Dx); Right knee pain, unspecified chronicity 10/01/2024 Telephone [facility] [address] [place] [address] Livia Tracy MA october recalls 10/01/2024 Travel 09/24/2024 Orders Only [facility] [address] [place] [address] Sharonda Stern NP Primary insomnia (Primary Dx) 09/23/2024 Refill [facility] [address] [place] [address] Sharonda Stern NP 09/23/[address] [address] Teresa Samson RN 09/16/2024 Refill [facility] [address] [place] [address] NameHill MD 09/10/2024 Refill [facility] [address] [place] [address] Hill Dickson MD Essential hypertension 08/24/2024 Travel 08/19/2024 Telephone [facility] [address] [place] [address] NameHill MD Lab Orders (Pt requesting tb test for program ) from Last 3 Months Immunizations Immunization Administration [...] Sign Reading Time Taken Comments Blood Pressure 152/79 10/29/2024 8:40 AM EDT Pulse 65 10/29/2024 8:40 AM EDT Temperature 36.4 C (97.6 F) 10/29/2024 8:40 AM EDT Respiratory Rate 18 10/29/2024 8:40 AM EDT Oxygen Saturation 98% 10/29/2024 8:40 AM EDT Inhaled Oxygen Concentration - - Weight 69.2 kg (152 lb 9.6 oz) 10/29/2024 8:40 A M EDT Height 157.5 cm (5' 2 ) 10/01/2024 8:43 AM EDT Body Mass Index 27.91 10/01/2024 8:43 AM EDT Plan of Treatment Upcoming Encounters Date Type Department Care Team (Late st Contact Info) Description 12/14/2024 10:00 AM EDT Office Visit [facility] [address] [place] [phone] Name, MD Hill [address] [place] [address] Health Maintenance Due Date Last Done Comments Zoster Vaccines (2 of 3) 01/27/2014 12/02/2013 RSV Patients and Patients Aged 60 years or older (1 - 1-dose 75+ series) 2022 Dental X-Ray: Bitewings 10/06/2023 10/05/19 23, 07/26/2021, 01/06/2020, Additional history exists Dental Oral Exam 11/27/2023 05/27/2023, 02/2021, 01/06/2020, Additional history exists Dental Prophylaxis 11/27/2023 05/27/2023, 0 10/04/2022, 07/26/2021, Additional history exists Diabetes: Foot Exam 03/07/2024 03/07/2023, 03/07/2023, 03/07/2023, Additional history exists Dental X-Ray: Full Mouth 07/27/2024 022, 06/06/2016, 05/31/2008 COVID-19 Vaccine ( season) 2024 03/08/2022, 01/04/2021, 06/25/2020, Additional history exists Influenza Vaccine (#1) 2024 11/15/2008 Diabetes: Hemoglobin A1C 12/04/2024 025, 03/17/2024, 08/12/2023, Additional history exists Alcohol/Substance Use Screening 03/17/2025 03/17/2024 Depression Screening 03/17/2025 03/17/2024, 03/17/19 25 Eye Exam 03/22/2025 03/22/2023, 01/10/2023 Diabetes: Urine Protein Screening 06/11/2025 06/11/2024, 09/09/2023, 06/28/2022, Additional history exists Lipid Panel 06/11/2025 06/11/2024, 08/25, 06/28/2022, Additional history exists SDOH Screening 06/16/2025 06/16/2024 Tobacco Screening 10/05/2025 10/05/2024 DTaP/Tdap/Td Vaccines (3 - Td or Tdap) [...] Comments XR SHOULDER 2+ VIEWS RIGHT Routine 10/16/2024 10:50 AM EDT Right shoulder pain, unspecified chronicity XR KNEE 3 VIEWS RIGHT Routine 10/16/2024 10:12 AM EDT Right knee pain, unspecified chronicity POCT COVID-19 AG RIBEIRO ID NOW Routine 10/05/2024 9:15 AM EDT COVID-19 POCT COVID-19 AG RIBEIRO ID NOW Routine 10/01/2024 8:54 AM EDT COVID-19 POCT INFLUENZA A (ID NOW RAPID MOLECULAR) Routine 10/01/2024 8:54 AM EDT COVID-19 POCT INFLUENZA B (ID NOW RAPID MOLECULAR) Routine 10/01/2024 8:54 AM EDT COVID-19 T-SPOT(R).TB Routine 08/24/2024 8:58 AM EDT Screening for tuberculosis ALBUMIN, RANDOM URINE W/CREATININE Routine 06/11/2024 9:40 AM EDT Type 2 diabetes mellitus with other specified complication, without long-term current use of insulin ([facility]) LIPID PANEL, STANDARD Routine 06/11/2024 9:40 AM EDT Type 2 diabetes mellitus with other specified complication, without long-term current use of insulin ([facility]) POCT GLYCATED HEMOGLOBIN, TOTAL Routine 03/17/2024 2:16 PM EST Type 2 diabetes mellitus with other specified complication, without long-term current use of insulin ([facility]) PROPHYLAXIS - ADULT Routine 05/27/2023 1 :00 [...] Results * XR Shoulder 2+ Views Right (10/16/2024 10:50 AM EDT) Anatomical Region Laterality Modality Upper Extremities, Shoulder Right Radi ographic Imaging 10/16/2024 10:5 0 AM EDT Narrative 10/16/2024 11:41 AM EDT [address] [address] XRay Report Signed Patient: Azeb Kennedy MR#: [id number] 4 : 1945 Acct:[id number] Age/Sex: 79 / F ADM Date: 10/16/24 Loc: HO.HHCX Attending Dr: Alejo Miranda MD Ordering Physician: Alejo Miranda MD Date of Service: 10/16/24 Procedure(s): XR shoulder RT min 2V Accession Number(s): [id number] cc: Alejo Miranda MD EXAMINATION: XR SHOULDER, RIGHT CLINICAL INFORMATION: Right shoulder pain COMPARISON: Radiographs on May 20, 2024 TECHNIQUE: Three views of the right shoulder. FINDINGS: No dislocation. Severe degenerative changes at acromioclavicular joint. Mild degenerative changes at the glenohumeral joint. Apparent irregularity of the glenoid fossa, which could be due to degenerative changes . No abnormal soft tissue calcification. No interval changes. XR/XR shoulder RT min 2V IMPRESSION: Apparent irregularity of the glenoid fossa, could be due to degenerative changes, or in the appropriate clinical setting, posttraumatic changes. Electronically signed by: Maricruz Tavares MD 10/16/2024 11:39 AM EDT RP Dictated By: Maricruz Tavares MD Signed By: <Electronically signed by Maricruz Tavares MD in OV> 10/16/24 1139 DD/ 1050 TD/TT: 10/16/24 1100 Correctional Case Manager: Procedure Note Donotuseinterpreter, Image - 10/16/[address] [address] XRay Report Signed Patient: Abraham Kennedy#: [id number] 4 : 8Acct:[id number] Age/Sex: 79 / FADM Date: 10/16/24 Loc: HO.HHCX Attending Dr: Alejo Miranda MD Ordering Physician: Alejo Miranda MD Date of Service: 10/16/24 Procedure(s): XR shoulder RT min 2V Accession Number(s): [id number] cc: Alejo Miranda MD EXAMINATION: XR SHOULDER, RIGHT CLINICAL INFORMATION: Right shoulder pain COMPARISON: Radiographs on May 20, 2024 TECHNIQUE: Three views of the right shoulder. FINDINGS: No dislocation. Severe degenerative changes at acromioclavicular joint. Mild degenerative changes at the glenohumeral joint. Apparent irregularity of the glenoid fossa, which could be due to degenerative changes . No abnormal soft tissue calcification. No interval changes. XR/XR shoulder RT min 2V IMPRESSION: Apparent irregularity of the glenoid fossa, could be due to degenerative changes, or in the appropriate clinical setting, posttraumatic changes. Electronically signed by: Maricruz Tavares MD 10/16/2024 11:39 AM EDT RP Dictated By: Maricruz Tavares MD Signed By: <Electronically signed by Maricruz Tavares MD in OV> 10/16/24 1139 DD/ 1050 TD/TT: 10/16/24 1100 Correctional Case Manager: us Alejo Miranda MD IMG XR PROCEDURES Final Result * XR Knee 3 Views Right (10/16/2024 10:12 AM EDT) Anatomical Region Laterality Modality Lower Extremities, Knee Right Radiogra phic Imaging 10/16/2024 10:1 2 AM EDT Narrative 10/16/2024 11:47 [place] [address] XRay Report Signed Patient: Azeb Kennedy MR#: [id number] 4 : 1945 Acct:[id number] Age/Sex: 79 / F ADM Date: 10/16/24 Loc: HO.HHCX Attending Dr: Alejo Miranda MD Ordering Physician: Alejo Miranda MD Date of Service: 10/16/24 Procedure(s): XR knee RT 3V Accession Number(s): [id number] cc: Alejo Miranda MD EXAMINATION: XR KNEE, RIGHT CLINICAL INFORMATION: Patient with 3-months duration of right knee pain s/p fall. COMPARISON: February 11, 2024 TECHNIQUE: Three views of the right knee. FINDINGS: Mild lateral tilting of the patella. No acute fracture. Tricompartmental osteophyte formation. Joint space narrowing and subchondral sclerotic changes in the medial femorotibial joint space. No suprapatellar joint effusion. XR/XR knee RT 3V IMPRESSION: No acute fracture or dislocation. Electronically signed by: Maricruz Tavares MD 10/16/2024 11:44 AM EDT RP Dictated By: Maricruz Tavares MD Signed By: <Electronically signed by Maricruz Tavares MD in OV> 10/16/24 1144 DD/ 1012 TD/TT: 10/16/24 1100 Correctional Case Manager: Procedure Note Mayrater, Image - 10/16/[address] [address] XRay Report Signed Patient: Abraham Kennedy#: [id number] 4 : 8Acct:[id number] Age/Sex: 79 / FADM Date: 10/16/24 Loc: .HHCX Attending Dr: Alejo Miranda MD Ordering Physician: Alejo Miranda MD Date of Service: 10/16/24 Procedure(s): XR knee RT 3V Accession Number(s): [id number] cc: Alejo Miranda MD EXAMINATION: XR KNEE, RIGHT CLINICAL INFORMATION: Patient with 3-months duration of right knee pain s/p fall. COMPARISON: February 11, 2024 TECHNIQUE: Three views of the right knee. FINDINGS: Mild lateral tilting of the patella. No acute fracture. Tricompartmental osteophyte formation. Joint space narrowing and subchondral sclerotic changes in the medial femorotibial joint space. No suprapatellar joint effusion. XR/XR knee RT 3V IMPRESSION: No acute fracture or dislocation. Electronically signed by: Maricruz Tavares MD 10/16/2024 11:44 AM EDT Dictated By: Maricruz Tavares MD Signed By: <Electronically signed by Maricruz Tavares MD in OV> 10/16/24 1144 DD/ 1012 TD/TT: 10/16/24 1100 Correctional Case Manager: Alejo Miranda MD IMG XR PROCEDURES Final Result * POCT COVID-19 Ag Ribeiro ID NOW (10/05/2024 9:15 AM EDT) Only the most recent of2 resultswithin the time period is included. Coronavirus Antigen PCR Negative Negative, Indeterminate, None Detected, Invalid, Specimen unsatisfactory for evaluation, Weakly Positive, 2+ Swab 10/05/2024 9:15 AM EDT Vaishali Gee MD POINT OF CARE TEST ENTER/E DIT ORDERABLES Final Result * Influenza B (ID NOW Rapid Molecular) (10/01/2024 8:54 AM EDT) Influenza B Negative Negative, Indeterminate [facility] Swab 10/01/2024 8:54 AM EDT Alejo Miranda MD POINT OF CARE TEST ENTER/EDIT OR DERABLES Final Result Performing Organization Address City/[facility]/ZIP Co de Phone Number [facility] [address] [place] [phone] * Influenza A (ID NOW Rapid Molecular) (10/01/2024 8:54 AM EDT) Influenza A Negative Negative, Indeterminate [facility] Swab 10/01/2024 8:54 AM EDT Alejo Miranda MD POINT OF CARE TEST ENTER/EDIT OR DERABLES Final Result Performing Organization Address [facility] Co de Phone Number [facility] [address] [place] [phone] * T-SPOT??.TB (08/24/2024 8:58 AM EDT) T Spot TB Negative Negative [facility] Comment:A negative test resu lt does not exclude the possibilityof exposure to or infection with Mycobacteriumtuberculosis (M. tuberculosis). Patients with recentexposure to TB infected individuals exhibiting anegative T-SPOT.TB result should be considered forretesting within 6 weeks or if other relevant clinicalsymptoms indicate. Results from T-SPOT.TB testing mustbe used in conjunction with each individual'sepidemiological history, current medical status,and results of other diagnostic evaluations.The T-SPOT.TB test is qualitative and results arereported as positive, borderline, or negative, giventhat the test controls perform as expected. In linewith the Centers for Disease Control and Prevention's2010 recommendation to report quantitative measurementsalongside the qualitative result, the laboratoryprovides spot counts for informational purposes only.The T-SPOT.TB test should not be interpreted as aquantitative test. TS PANEL A 0 [facility] TS PANEL B 0 [facility] Negative Control Passed [facility] Positive Control Passed [facility] Comment:For additional infor mation, please refer tohttp://education.[employer])/faq/BHH066(This link is being provided for informational/educational purposes only.)REPORT COMMENT:REC'D AT [facility] TEST WAS PERFORMED AT:[facility] [id number] [place] [address]LFIOMJX W. MASON,MD,PHD 08/24/2024 8:58 AM EDT 08/24/2024 10:59 AM EDT us Hill Dickson MD LAB BLOOD ORDERABLES Final Resul t [facility] [address] [place] [phone] * Albumin, Random Urine W/Creatinine (06/11/2024 9:40 AM EDT) Creatinine, Urine 93.85 mg/dL [facility] Microalbumin Urine 25.0 mg/L [facility] Microalbum Creatinine Ratio Ur 26.6 <30 ug/mg cr [facility] Comment:Albumin/Creatinine R atio Reference Ranges: Normal: < 30 ug/mg creatinine Microalbuminuria: 30 - 300 ug/mg creatinineClinical Albuminuria: > 300 ug/mg creatinine Urine (Urine, Random) 06/11/2024 9:40 AM EDT 06/11/2024 11:25 AM EDT us Hill Dickson MD LAB URINE ORDERABLES Final Resul t Performing Organization Address [facility] Co de Phone Number [facility] [address] [place] [phone] [phone] * (ABNORMAL) Lipid Panel, Standard (06/11/2024 9:40 AM EDT) Triglycerides 144 <150 mg/dL [facility] Comment:Desirable Triglyceri de: less than 150 mg/dLBorderline High Triglyceride 150-199 mg/dLHigh Triglyceride: 200-499 mg/dLVery High Triglyceride: greater than or equal to 5OO mg/dL Cholesterol 195 <200 mg/dL [facility] Comment:Desirable Cholestero l: less than 200 mg/dLBorderline High Cholesterol: 200-239 mg/dLHigh Cholesterol: greater than 239 mg/dL LDL Cholesterol Calculated 115(H) <100 mg/dL [facility] Comment:Desirable LDL: less than 100 mg/dLNear Optimal/Above Optimal LDL: 110- 129 mg/dLBorderline High LDL: 130-159 mg/dLHigh LDL: 160-189 mg/dLVery High LDL: greater than or equal to 190 mg/dL HDL Cholesterol 52 >40 mg/dL [facility] Comment:Desirable HDL: great er than 40 mg/dL Note: This HDL assay may give artificially low results in patients with liver disease. Blood Venous blood specimen / Unknown 06/11/2024 9:40 AM EDT 06/11/2024 11:17 AM EDT us Hill Dickson MD LAB BLOOD ORDERABLES Final Resul t Performing Organization Address [facility] Co de Phone Number [facility] [address] [place] [phone] * (ABNORMAL) POCT HGB A1C (03/17/2024 2:16 PM EST) Hemoglobin A1C 6.3(A) 4.0 - 6.0 % QC Media Lot # [id number] Lot# Expiration Date [id number] Blood 03/17/2024 2:16 PM EST us Hill Dickson MD POINT OF CARE TEST ENTER/EDIT OR DERABLES Final Result * Diabetes Eye Exam (03/22/2023) Eye Exam Normal Normal, BIRADS 0 , BIRADS 1 , BIRADS 2, BIRADS 3 , BIRADS 4+ Result Bernarda Dickson MD HEALTH MAINTENANCE Final Result * Colonoscopy (03/03/2014 2:40 PM EST) Colonoscopy Normal Normal Narrative Luda Hafsa - 03/03/2014 2:40 PM EST Recommended 10 year follow up [facility] Provider HEALTH MAINTENANCE Final Result * Hepatitis C Antibody (09/15/2012) Hepatitis C Antibody Nonreactive Blood us Hill Dickson MD HEALTH MAINTENANCE Final Result from Last 3 Months or Most Recently Relevant to Health Maintenance Insurance [facility] USP OPTIONS (O D-SNP) DENTAL - [facility] [address] [place] [address] [phone] [address] [place] [phone] Care Teams Remodeler Relationship Specialty Start Date End Date Name, MD Hill [address] [place] [phone] PCP - General Family Medicine 03/15/15
--- OUTSIDE RECORDS SUMMARY | 2024-11-10 13:33 | XMS_ITS | Encounter Summary ---
Author Organization [employer] Address [address] [facility] [place] [address] Care Team Providers Care Life Underwriter Name Role Phone Name, Hill HERNANDEZ Primary Care Provider [phone] Encounter Details Date Type Department Care Team (Late st Contact Info) Description 01/21/2023 Telephone [facility] [address] [place], [place] [phone] Name, MD Hill [address] [place] [address] Social History Tobacco Use Types Packs/Day Years [...] Description 12/14/2024 10:00 AM EDT Office Visit [facility] [address] [place] [address] Name, MD Hill [address] [place] [address] documented as of this encounter Visit Diagnoses Not on filedocumented in this encounter Additional Health Concerns Assessment Noted Time PHQ-9 Depression Total Score: 19 023 1:35 PM EDT documented as of this encounter Care Teams Life Underwriter Relationship Specialty Start Date End Date NameHill MD [address] [place] [address] PCP - General Family Medicine 03/15/15 documented as of this encounter
--- OUTSIDE RECORDS SUMMARY | 2024-11-10 13:33 | XMS_ITS | Encounter Summary ---
Author Organization [employer] Address [address] [facility] [address] [place] [address] Care Team Providers Care Change Of Address Clerk Name Role Phone Name, Hill HERNANDEZ Primary Care Provider [phone] Encounter Details Date Type Department Care Team (Latest Contact Info) Description 07/26/2021 Abstract [facility] Dental, Provider, DDS Social History [...] Description 12/14/2024 10:00 AM EDT Office Visit [facility] [address] [place] [address] Name, MD Hill [address] [place] [address] documented as of this encounter Visit Diagnoses Not on filedocumented in this encounter Care Teams Change Of Address Clerk Relationship Specialty Start Date End Date Name, MD Hill [address] [place] [address] PCP - General Family Medicine 03/15/15 documented as of this encounter
--- OUTSIDE RECORDS SUMMARY | 2024-11-10 13:33 | XMS_ITS | Encounter Summary ---
Author Organization [employer] Address [address] [place] [address] 7t [place] [address] Care Team Providers Care Farm Implement Mechanic Name Role Phone Name, Hill HERNANDEZ Primary Care Provider [phone] Encounter Details Date Type Department Care Team (Late st Contact Info) Description 07/30/2022 Abstract [facility] MEDICINE [address] [place] [address] [phone] Name, MD Hill [address] [place] [address] [phone] Social History Tobacco Use Types Packs/Day Years [...] Description 12/14/2024 10:00 AM EDT Office Visit [facility] MEDICINE [address] [place] [address] [phone] Name, MD Hill [address] [place] [address] [phone] documented as of this encounter Procedures Procedure [...] documented as of this encounter Care Teams Farm Implement Mechanic Relationship Specialty Start Date End Date Name, MD Hill [address] [place] [address] PCP - General Family Medicine 03/15/15 documented as of this encounter
--- OUTSIDE RECORDS SUMMARY | 2024-11-10 13:33 | XMS_ITS | Encounter Summary ---
Author Organization [employer] Address [address] [facility] 7t [place] [address] Care Team Providers Care Warehouse Helper Name Role Phone Name, Hill HERNANDEZ Primary Care Provider [phone] Reason for Visit * Reason Onset Date Comments triage 07/19/2022 Encounter Details Date Type Department Care Team ([facility] st Contact Info) Description 07/19/2022 Telephone [facility] MEDICINE [address] [place], [place] [phone] Name, MD Hill [address] [place] [address] triage Social History Tobacco Use Types Packs/Day [...] worse The caller accepted this outcome speaks frisian documented in this encounter Plan of Treatment Upcoming Encounters Date Type Department Care Team ([facility] st Contact Info) Description 12/14/2024 10:00 AM EDT Office Visit [facility] MEDICINE [address] [place] [address] Name, MD Hill [address] [place] [address] documented as of this encounter Visit Diagnoses Not on filedocumented in this encounter Additional Health Concerns Assessment Noted Time PHQ-9 Depression Total Score: 19 023 1:35 PM EDT documented as of this encounter Care Teams Warehouse Helper Relationship Specialty Start Date End Date Name, MD Hill [address] [place] [address] PCP - General Family Medicine 03/15/15 documented as of this encounter
--- OUTSIDE RECORDS SUMMARY | 2024-11-10 13:33 | XMS_ITS | Encounter Summary ---
Author Organization [employer] Address 75 [facility] 7t [place] [address] Care Team Providers Care Superintendent Warehouse Name Role Phone Name, Hill HERNANDEZ Primary Care Provider [phone] Encounter Details Date Type Department Care Team (Latest Contact Info) Description 01/06/2020 Abstract [facility] CONVERSIONS Dental, Provider, DDS Social [...] Description 12/14/2024 10:00 AM EDT Office Visit [facility] MEDICINE [address] [place] [address] Name, MD Hill [address] [place] [address] documented as of this encounter Visit Diagnoses Not on filedocumented in this encounter Care Teams Superintendent Warehouse Relationship Specialty Start Date End Date Name, MD Hill [address] [place] [address] PCP - General Family Medicine 03/15/15 documented as of this encounter
--- OUTSIDE RECORDS SUMMARY | 2024-11-10 13:33 | XMS_ITS | Encounter Summary ---
Author Organization [employer] Address [address] [facility] 7t [place] [address] Care Team Providers Care Street Supervisor Name Role Phone Name, Hill HERNANDEZ Primary Care Provider [phone] Encounter Details Date Type Department Care Team (Latest Contact Info) Description 04/15/2018 Abstract [facility] CONVERSIONS Dental, Provider, DDS Social History Tobacco [...] Description 12/14/2024 10:00 AM EDT Office Visit [facility] MEDICINE [address] [place] [address] Name, MD Hill [address] [place] [address] documented as of this encounter Visit Diagnoses Not on filedocumented in this encounter Care Teams Street Supervisor Relationship Specialty Start Date End Date Name, MD Hill [address] [place] [address] PCP - General Family Medicine 03/15/15 documented as of this encounter
--- OUTSIDE RECORDS SUMMARY | 2024-11-10 13:33 | XMS_ITS | Encounter Summary ---
Author Organization [employer] Address [address] [facility] 7t [place] [address] Care Team Providers Care High School Science Teacher Name Role Phone Name, Hill HERNANDEZ Primary Care Provider [phone] Encounter Details Date Type Department Care Team ([facility] Contact Info) Description 03/26/2022 Orders Only [facility] MEDICINE [address] [place] [id number] Jane Oneill LPN Social History Tobacco Use [...] Department Care Team (Late Contact Info) Description 12/14/2024 10:00 AM EDT Office Visit [facility] MEDICINE [address] [place] [address] Name, MD Hill [address] [place] [phone] documented as of this encounter Visit Diagnoses Not on filedocumented in this encounter Care Teams High School Science Teacher Relationship Specialty Start Date End Date Name, MD Hill [address] [place] [phone] PCP - General Family Medicine 03/15/15 documented as of this encounter
--- OUTSIDE RECORDS SUMMARY | 2024-11-10 13:33 | XMS_ITS | Encounter Summary ---
Author Organization [employer] Address 75 [facility] 7t [place] [address] Care Team Providers Care Pre Owned Sales Manager Name Role Phone Name, Hill HERNANDEZ Primary Care Provider [phone] Reason for Visit * Reason Onset Date Comments Call Back Request 06/18/2024 Encounter Details Date Type Department Care Team ([facility] st Contact Info) Description 06/18/2024 Telephone [facility] MEDICINE [address] [place], [place] [phone] Name, MD Hill [address] [place] [address] Call Back Request Social History Tobacco Use [...] 06/19/2024 9:19 AM EDT TC placed to Nyasia, a pharmacist with [facility] to inquire about [...] - 06/18/2024 3:17 PM EDT Tc from [place] with [facility] regarding ramelteon (Rozerem) 8 MG tablet requesting a call back from nurses to discuss alternative med. [phone] documented in this encounter Plan of Treatment Upcoming Encounters Date Type Department Care Team ([facility] st Contact Info) Description 12/14/2024 10:00 AM EDT Office Visit [facility] MEDICINE [address] [place] [phone] Name, MD Hill [address] [place] [address] documented as of this encounter Visit Diagnoses Not on filedocumented in this encounter Additional Health Concerns Assessment Noted Time PHQ-9 Depression Total Score: 4 03/17/19 25 2:14 PM EST documented as of this encounter Care Teams Pre Owned Sales Manager Relationship Specialty Start Date End Date Name, MD Hill [address] [place] [address] PCP - General Family Medicine 03/15/15 documented as of this encounter
--- OUTSIDE RECORDS SUMMARY | 2024-11-10 13:33 | XMS_ITS | Encounter Summary ---
Author Organization [employer] Address 75 [facility] 7t [place] [address] Care Team Providers Care Logger Name Role Phone Name, Hill HERNANDEZ Primary Care Provider [phone] Encounter Details Date Type Department Care Team (Latest Contact Info) Description 04/21/2019 Abstract [facility] CONVERSIONS Dental, Provider, DDS Social [...] Description 12/14/2024 10:00 AM EDT Office Visit [facility] MEDICINE [address] [place] [address] Name, MD Hill [address] [place] [address] documented as of this encounter Visit Diagnoses Not on filedocumented in this encounter Care Teams Logger Relationship Specialty Start Date End Date Name, MD Hill [address] [place] [address] PCP - General Family Medicine 03/15/15 documented as of this encounter
--- OUTSIDE RECORDS SUMMARY | 2024-11-10 13:33 | XMS_ITS | Encounter Summary ---
Author Organization [employer] Address [address] [facility] [address] 7t [place] [address] Care Team Providers Care Advertising Project Manager Name Role Phone Name, Hill HERNANDEZ Primary Care Provider Encounter Details Date Type Department Care Team (Late st Contact Info) Description 02/01/2023 Telephone [facility] MEDICINE [address] [place], [place] [phone] Name, MD Hill [address] [place] [address] Social History Tobacco Use Types Packs/Day Years [...] Office Visit [facility] MEDICINE [address] [place] [address] Name, MD Hill [address] [place] [address] documented as of this encounter Visit Diagnoses Not on filedocumented in this encounter Additional Health Concerns Assessment Noted Time PHQ-9 Depression Total Score: 19 023 1:35 PM EDT documented as of this encounter Care Teams Advertising Project Manager Relationship Specialty Start Date End Date NameHill MD [address] [place] [address] PCP - General Family Medicine 03/15/15 documented as of this encounter
--- OUTSIDE RECORDS SUMMARY | 2024-11-10 13:33 | XMS_ITS | Encounter Summary ---
Author Organization [employer] Address 75 [facility] [address] [place] [address] Care Team Providers Care Multicultural Internship Name Role Phone Name, Hill HERNANDEZ Primary Care Provider [phone] Reason for Visit * Reason Onset Date Comments ER Follow-up 05/20/2024 Encounter Details Date Type Department Care Team ([facility] st Contact Info) Description 05/20/2024 Telephone [facility] MEDICINE [address] [place], [place] [phone] Name, MD Hill [address] [place] [address] ER Follow-up Social History Tobacco Use Types [...] PM EDT Please obtain ED report from [facility] 05/19/24. Thank you. Triage call to Pt with [facility] Partition Assembly Machine Operator ID [id number]. Pt is called for follow up post [...] Pt is advised to call back to [facility] if needed after 05/22/24 and Pt [...] ED visit on : Date: 05/19/24 Hospital: [facility] Seen for: Fall Symptomatic Yes pain on right arm *if yes message should go to Triage Patient advised will forward to team nurse for follow up documented in this encounter Plan of Treatment Upcoming Encounters Date Type Department Care Team (Late st Contact Info) Description 12/14/2024 10:00 AM EDT Office Visit [facility] MEDICINE [address] [place] [address] Name, MD Hill [address] [place] [address] documented as of this encounter Visit Diagnoses Not on filedocumented in this encounter Additional Health Concerns Assessment Noted Time PHQ-9 Depression Total Score: 4 03/17/19 25 2:14 PM EST documented as of this encounter Care Teams Multicultural Internship Relationship Specialty Start Date End Date Name, MD Hill [address] [place] [address] PCP - General Family Medicine 03/15/15 documented as of this encounter
== END 2024-11-10 10:48 | disposition home or self-care (01) ==
LOC: HO.HOS 10:23
PROVIDERS: Visit Provider Orthopaedic Surgery
DX: M25.311 Other instability, right shoulder (principal)
CPT/HCPCS: 99213; G2211

== ENCOUNTER → 2024-11-10 10:22 | Outpatient (BNVA) | payer OTHER, SELFPAY | PROVIDERS: Visit Provider Orthopaedic Surgery | DX: M25.511 Pain in right shoulder (principal); M25.311 Other instability, right shoulder | CPT/HCPCS: 99212 ==

== ENCOUNTER 2024-11-20 09:26 | Emergency (ER) | payer OTHER, SELFPAY ==
--- OUTSIDE RECORDS SUMMARY | 2024-06-09 06:10 | XMS_ITS ---
Author Organization [facility] Address [address] [place] [address] Care Team Providers Care Pairer Inspector Name Role Phone Name Hill HERNANDEZ Primary Care Provider James Kaur [phone] REASON FOR VISIT Patient presents today for an upper endo Encounters Encounter Location Date Provider Diagnosis [facility] [address] [place] [address] 06/09/2024 James Easton Plan Of Treatment Next Appt Details Provider Name:James Easton , 03/16/2025 10:50:00 AM, [address], [address], [place], [address], Progress Notes * RAFFAELE CHUNG EDOB:[birth year] (79 yo F)Acc No.[id number]:06/09/2024 Progress Notes Patient: RAFFAELE CARR Provider: Curt Easton MD :1945 A ge:79 Y S ex:Female Date:06/09/2024 Address:[address] [facility] [address], [place], [place] Pcp:Hill Dickson MD Subjective: * Chief Complaints: [...] MD Date: 0 06/09/2024 Generated for Tejinder erickson/Andres/Jtitting on: 0 11/20/2024 10:51 AM EDT
--- NOTE | ~2024-11-20 | XR_ITS ---
EXAMINATION: XR KNEE, LEFT CLINICAL INFORMATION: fall, pain COMPARISON: None available. TECHNIQUE: Four views of the left knee. FINDINGS: There is no joint effusion. There is mild narrowing of the medial joint space. There are tricompartmental marginal osteophytes. There is multifocal atherosclerotic calcifications in the arterial vessels. XR/XR knee LT 4V IMPRESSION: Mild osteoarthritis. Electronically signed by: Mark Anthony Jaimes MD 11/20/2024 12:32 PM EDT
--- NOTE | ~2024-11-20 | CT_ITS ---
EXAMINATION: CT HEAD WITHOUT CONTRAST CLINICAL INFORMATION: fall with head strike COMPARISON: February 15, 2016. TECHNIQUE: Contiguous axial imaging was performed from the skull base to vertex without intravenous administration of contrast. This CT examination was performed using dose optimization techniques as appropriate, variously including the following: *Automated exposure control *Adjustment of mA and/or kV according to patient size (this includes techniques or standardized protocols for targeted exams where dose is matched to indication/reason for exam; i.e. extremities or head) *Use of iterative reconstruction technique DLP: 752.77 mGy-cm FINDINGS: No acute cortical disruption in the bony calvarium. No acute intracranial hemorrhage, mass effect, midline shift, hydrocephalus or herniation. Bilateral multifocal patchy and confluent deep periventricular white matter hypodensities involving centrum semiovale and dominguez radiata. Old lacunar infarct, Mercedes right internal capsule, basal ganglia. Lockhart-white matter differentiation is normal. Posterior cranial fossa contents demonstrated no gross hemorrhage or mass effect. Normal position of the cerebellar tonsils. Sellar/suprasellar region demonstrated no gross masses. Calcified plaques in the cavernous supracavernous segments both ICAs and V4 segment right vertebral artery. Mucosal thickening without air-fluid levels in the paranasal sinuses. Retention cyst right saphenous sinus. Tympanic cavities and mastoid cells are aerated. Unerupted molar, left maxillary. CT/CT head/brain wo IV con IMPRESSION: No acute fracture, bony calvarium. No acute intracranial hemorrhage. Small vessel occlusive disease. Electronically signed by: Phil Melissa MD 11/20/2024 11:03 AM EDT
--- NOTE | ~2024-11-20 | CT_ITS ---
EXAMINATION: CT CERVICAL SPINE WITHOUT CONTRAST CLINICAL INFORMATION: Fall with head strike. COMPARISON: None available. TECHNIQUE: Spiral CT imaging of the cervical spine performed in axial plane without contrast. Multiplanar reformatted images were constructed from the axial data set. This CT examination was performed using dose optimization techniques as appropriate, variously including the following: *Automated exposure control *Adjustment of mA and/or kV according to patient size (this includes techniques or standardized protocols for targeted exams where dose is matched to indication/reason for exam; i.e. extremities or head) *Use of iterative reconstruction technique FINDINGS: CORONAL ALIGNMENT: -There is a minimal right convex scoliosis, possibly positional. SAGITTAL ALIGNMENT: -Mild straightening of the normal lordosis. No traumatic subluxation. -There is a 2 mm degenerative appearing retrolisthesis of C5 on C6. C1-C2 AND CRANIOCERVICAL JUNCTION: -Intact and normally aligned. There are moderate degenerative changes in the anterior atlantoaxial joint. Mild posterior talus formation is present. VERTEBRAL BODIES AND FACETS: -There are no fractures, compression deformities, or suspicious bone lesions. There is no evidence of traumatic malalignment. There is normal facet alignment present, with multilevel hypertrophic degenerative facet changes most severe on the left at C2-3. Of note, the C7-T1 facets are fused bilaterally. DISCS: -Severe disc degeneration and narrowing present at C5-6. There is otherwise moderate disc degeneration at the remaining levels. CENTRAL CANAL: -No evidence of high-grade central canal narrowing or large disc herniation allowing for modality limitations. There is a probable moderate stenosis at C5-6 secondary to a disc osteophytic ridge complex. PREVERTEBRAL AND PARAVERTEBRAL SOFT TISSUES: -There is no prevertebral or paravertebral edema, swelling, or abnormal fluid collection. -The thyroid demonstrates a nodule in the left lobe measuring 1.2 x 1.0 cm. -No lymphadenopathy or mass within the neck. There is a retropharyngeal course of the left common carotid artery. LUNG APICES: -Clear without pneumothorax. CT/CT cervical spine wo IV con IMPRESSION: 1. No CT evidence of acute cervical spine fracture or injury. 2. Moderate to severe degenerative spondylosis most significant at C5-C6. Electronically signed by: Indra Carter MD 11/20/2024 11:07 AM EDT
[2024-11-20 09:35] VITALS: BP 150/90; BP 152/76; PULSE 66; PULSE 68; RESP 16; O2SAT 93; O2SAT 95; BMI 30.4
[2024-11-20 09:50] VITALS: BP 145/72; PULSE 69; RESP 16; O2SAT 94
--- NOTE | 2024-11-20 10:03 | ED.GENADULT ---
HPI - General Adult General Chief complaint: Fall Stated complaint: fall/?HS/?LOC, Left leg pain Time Seen by Provider: 11/20/24 09:57 Source: patient, RN notes reviewed and old records reviewed Mode of arrival: ambulatory Limitations: no limitations History of Present Illness ED Provider: Tsering HPI narrative: Patient is a 79-year-old female with history of bilateral knee osteoarthritis presenting to the emergency department with complaint of left knee pain after a fall prior to arrival. States that she had a mechanical fall and tripped on the sidewalk and fell onto her left side. She denies head strike or loss of consciousnes, she is not anticoagulated. She reports multiple recent falls, states that she has weakness in her legs due to the osteoarthritis of her knees. Also complains of chronic right shoulder pain, states has been following with her PCP for this and has an upcoming MRI. Ambulates with a cane at baseline and feels she is not safe at home as she lives alone. MD complaint: Knee pain Onset (ago): hour(s) Related Data Home Medications ?Medication ?Instructions ?Recorded ?Confirmed lisinopril 2.5 mg tablet 2.5 mg PO DAILY 05/25/20 11/10/24 melatonin 5 mg tablet 5 mg PO BEDTIME 05/25/20 11/10/24 pravastatin 10 mg tablet 10 mg PO DAILY 05/25/20 11/10/24 amitriptyline 50 mg tablet 50 mg PO BEDTIME 06/01/24 11/10/24 magnesium oxide 400 mg PO DAILY 06/01/24 11/10/24 metformin 850 mg tablet 850 mg PO BID 06/01/24 11/10/24 omeprazole 20 mg capsule,delayed 20 mg PO DAILY@0630 06/01/24 11/10/24 release Previous Rx's ?Medication ?Instructions ?Recorded meloxicam 15 mg tablet 15 mg PO DAILY PRN Pain #30 tabs 11/10/24 Allergies Allergy/AdvReac Type Severity Reaction Status Date / Time No Known Allergies Allergy Verified 11/20/24 09:40 Review of Systems Review of Systems: as per hpi Yes all other systems are reviewed and are negative Constitutional: Constitutional: Reports as per HPI [facility] Past Medical History Medical History Sacroiliac joint dysfunction Sacroiliitis Low back pain Primary osteoarthritis of knees, bilateral HTN (hypertension) Diabetes Arthritis Surgical History History of hysterectomy History of cholecystectomy Social History Social History Alcohol intake: never Physical Exam ED Vital Signs: Vital Signs - 24 hr 11/20/24 09:35 11/20/24 09:50 11/20/24 11:02 Temperature 98.1 F Pulse Rate 66 69 60 Respiratory Rate 16 16 19 Blood Pressure 152/76 H 145/72 H 139/82 Pulse Oximetry 93 94 96 Oxygen Delivery Method Room Air Room Air Room Air 11/20/24 14:00 11/20/24 15:04 Temperature Pulse Rate 58 58 Respiratory Rate 18 Blood Pressure 159/84 H 159/84 H Pulse Oximetry 96 96 Oxygen Delivery Method Room Air BMI result Body Mass Index 30.4 Vital signs have been reviewed and appear to be correct. Blood pressure normal. Heart rate normal. Respiratory rate normal. Temperature normal. Oxygen saturation normal. Const General: cooperative, healthy appearing and no acute distress Orientation/consciousness: oriented to person, oriented to place, oriented to time and patient oriented x3 Limitations: no limitations HENMT Head: Yes normocephalic and Yes atraumatic Ears: external ears normal General nose exam: Normal external nose present Face and sinus: Yes face symmetric Mouth: oropharynx normal and moist mucous membranes Throat: Yes uvula midline Eyes Pupils: Equal, round and reactive pupils present Neck Neck: Yes normal visual inspection and Yes trachea midline Resp Effort & Inspection: normal respiratory effort and able to speak in complete sentences Auscultation: clear to auscultation bilaterally Cardio Rate: regular rate Rhythm: regular rhythm Heart sounds: S1 normal heart sound present and S2 normal heart sound present GI Palpation (GI): Soft to palpation and nontender Auscultation: normoactive bowel sounds General: Yes no CVA tenderness Back/Spine/Pelvis Back: no CVA tenderness Cervical Spine: collar present, No Cervical spine tenderness and No step off deformity Thoracic/Lumbar Spine: thoracic and lumbar spine normal to inspection, No thoracic spinal tenderness and No lumbar spinal tenderness Pelvis: no pain with anterior-posterior compression and no pain with lateral compression Skin General skin exam: elasticity normal and turgor normal Neuro General: oriented to person, oriented to place, oriented to time, patient oriented x3, moves all extremities, no focal motor deficits and CN's II-XI intact bilaterally Cranial nerves: Yes Equal, round and reactive pupils present Cognition (Neuro): normal cognition Extrem General: Yes full ROM, Yes no pedal edema and Yes no calf tenderness Left lower extremity: knee Details: normal ROM, knee ligament exam normal and abrasion (1cm diameter, superficial, over patella) Psych Mental Status: mental status grossly normal Affect: normal affect Thought process: Normal thought process present Course Reevaluation(s) Reevaluation #1: Per Shama from , patient will be discharged home with VNA services. Observation care revealed that patient does not meet medical necessity for hospitalization. Final disposition discussed with patient. The patient completed observation care at 1620 on 11/20/24. Time: 16:19 Medications Administered Discontinued Medications Generic Name Dose Route Start Last Admin Trade Name Freq PRN Reason Stop Dose Admin Ketorolac Tromethamine 30 mg 11/20/24 12:05 11/20/24 12:14 Ketorolac Tromethamine 30 Mg/Ml Vial IM 11/20/24 12:06 30 mg ONCE ONE Administration Medical Decision Making Medical Decision Making [facility] Narrative: Patient is a 79-year-old female with history of bilateral knee osteoarthritis presenting to the emergency department with complaint of left knee pain after a fall prior to arrival. On exam patient is awake, A+Ox3, VS WNL, afebrile, normal neurological exam without focal deficits, physical exam findings as above. Given reported symptoms and physical exam findings, initial differential includes but is not limited to left knee contusion versus fracture, ICH, skull or cervical vertebral fracture or subluxation. X-ray left knee notable for osteoarthritis without acute fracture. CT head and C-spine notable for no evidence of ICH, skull or cervical vertebral fracture or subluxation. My interpretation is in agreement with the radiologist's interpretation. Results discussed with patient all questions answered. Patient reiterates that she does not feel safe to return home as she has been having multiple falls and difficulty ambulating. Reports that she has been to short-term rehab previously and explicitly does not want to return to the rehab she was at before in [place]. Will place patient on physician observation at this time for PT and case management evaluation. In-person translator/interpreter was utilized for all interactions, assessments, and discussions. Differential Diagnosis Differential Diagnoses: The differential diagnosis associated with the presentation includes as per [facility] Admission/Observation Consideration of admission/observation: Escalation of care including admission/observation considered Patient would have been admitted to the hospital and transferred to appropriate facility had their clinical presentation warranted hospital admission. Independent Interpretation I performed an independent interpretation of an: Plain X-Ray and CT Scan Interpretation: X-ray left knee notable for osteoarthritis without acute fracture. CT head and C-spine notable for no evidence of ICH, skull or cervical vertebral fracture or subluxation. Radiology Impression Discussion of test interpretation with radiology: I have reviewed the radiologist's reading. Radiologist Impression: CT/CT cervical spine wo IV con IMPRESSION: 1. No CT evidence of acute cervical spine fracture or injury. 2. Moderate to severe degenerative spondylosis most significant at C5-C6. CT/CT head/brain wo IV con IMPRESSION: No acute fracture, bony calvarium. No acute intracranial hemorrhage. Small vessel occlusive disease. XR/XR knee LT 4V IMPRESSION: Mild osteoarthritis. External Record Review External record reviewed: Inpatient record, Office record and Outpatient record Discharge Plan Discharge Clinical Impression: Contusion of knee, left Qualifiers: Encounter type: initial encounter Qualified Code(s): S80.02XA - Contusion of left knee, initial encounter Fall Qualifiers: Encounter type: initial encounter Qualified Code(s): W19.XXXA - Unspecified fall, initial encounter Patient Disposition: Home, Self-Care Instructions: Contusion in Adults (ED), Fall Prevention (ED), Fall Prevention for Older Adults (ED) Additional Instructions: You were evaluated in the emergency department today for injuries after a fall. Your imaging did not show evidence of conditions requiring emergent medical treatment at this time. You were evaluated by physical therapy and short-term rehab was recommended. You are choosing to be discharged home with VNA services. Follow up with your primary care provider this week. Return to the emergency department with new or concerning symptoms. Prescriptions: No Action meloxicam 15 mg tablet 15 mg PO DAILY PRN (Reason: Pain) Qty: 30 2RF metformin 850 mg tablet 850 mg PO BID amitriptyline 50 mg tablet 50 mg PO BEDTIME omeprazole 20 mg capsule,delayed release(DR/EC) 20 mg PO DAILY@0630 magnesium oxide 400 mg magnesium Tablet 400 mg PO DAILY melatonin 5 mg tablet 5 mg PO BEDTIME pravastatin 10 mg tablet 10 mg PO DAILY lisinopril 2.5 mg tablet 2.5 mg PO DAILY Print Language: Romanian
--- OUTSIDE RECORDS SUMMARY | 2024-11-20 10:51 | XMS_ITS ---
Author Name [place], [place]. Socorro Olson Address [address] [place] [address] Phone [phone] [facility] Care Team Providers Care Game Breeding Farm Manager Name Role Phone Ruth Sen Unavailable [phone] Reason for Referral Not Available Allergies, adverse [...] 2021-12-05 No Data Available OneTouch Delica Plus [id number] Miscellaneous TEST BLOOD SUGAR THREE TIMES DAILY [...] (do not use for phone, instead use [id number]) [facility]04/2022 Type 2 diabetes mellitus wit h other specified complicationHyperlipidemia, unspecifiedEssential (primary) hypertensionMajor depressive disorder, recurrent, in remission, unspecifiedPersonal history of (healed) traumatic fracture New patient,40-59min; chronic exacerbation, 2 stable chronic or 1 acute illness add add modifier 95 for video (do not use for phone, instead use 37857-03) [facility] 06/04/2022 New patient,40-59min; chronic exacerbation, 2 stable chronic or 1 acute illness add add modifier 95 for video (do not use for phone, instead use 05893-95) [facility] 06/04/2022 New patient,40-59min; chronic exacerbation, 2 stable chronic or 1 acute illness add add modifier 95 for video (do not use for phone, instead use 19494-01) [facility] 06/04/2022 New patient,40-59min; chronic exacerbation, 2 stable chronic or 1 acute illness add add modifier 95 for video (do not use for phone, instead use 19531-14) [facility] 06/04/2022 New patient,40-59min; chronic exacerbation, 2 stable chronic or 1 acute illness add add modifier 95 for video (do not use for phone, instead use 96358-27) [facility] 06/04/2022 New patient,40-59min; chronic exacerbation, 2 stable chronic or 1 acute illness add add modifier 95 for video (do not use for phone, instead use 33630-43) [facility] 06/04/2022 New patient,40-59min; chronic exacerbation, 2 stable chronic or 1 acute illness add add modifier 95 for video (do not use for phone, instead use 05146-25) [facility] 06/04/2022 Vital Signs Date of Collection Vitals 2022-06-04 10:06:44 Height - 157.48 cmWe ight - 68.04 kgBody Mass Index (BMI) - 27.44 kg/m2 Social History Social History Social History Observation Description Effec tive Time Current Smoking Status Never smoker 2024-10-27 8 Sex Female History of Procedures Procedures Service Procedure code Service date Servicing provider Phone# New patient,40-59min; chronic exacerbation, 2 stable chronic or 1 acute illness add add modifier 95 for video (do not use for phone, instead use 90523-78) 92124 2022-06-04 No Data Available No Data Availa [...] ilable Functional Status Functional Category Effective Dates CAR LOADER assists with cooking, cl eaning and laundry. [...]
--- OUTSIDE RECORDS SUMMARY | 2024-11-20 10:52 | XMS_ITS | Clinical Summary ---
Author Organization [facility] Address [address] [facility] [address] [place] [phone] Phone Care Team Providers Care Crisis Mental Health Therapist Name Role Phone Name, Hill HERNANDEZ Primary Care Provider [phone] Allergies No known active allergies Medications metformin [...] Medical Devices Not on file Insurance [address] [place] [address] [facility] DUAL MEDICARE REPLACEMENT [address] [place] [address] [facility] DUAL MEDICARE REPLACEMENT [address] [place] [address] [facility] DUAL MEDICARE REPLACEMENT [address] [place] [address] [facility] DUAL MEDICARE REPLACEMENT [id number] [facility] DUAL MEDICARE REPLACEMENT [address] [place] [address] [facility] DUAL MEDICARE REPLACEMENT [facility] DUAL MEDICARE [place] [address] [place] [address] DUAL MEDICARE REPLACEMENT [facility] DUAL MEDICARE REPLACEMENT [place] [id number] Care Teams Crisis Mental Health Therapist Relationship Specialty Start Date End Date Name, MD Hill [address] [place] [phone] PCP - General Geriatric Psychiatry 01/07/20 Additional Source Comments The information contained in this document represents components of the legal health record. It is not the complete legal health record.[facility]
--- OUTSIDE RECORDS SUMMARY | 2024-11-20 10:52 | XMS_ITS | Encounter Summary ---
Author Organization [facility] Address [address] [facility] 7t [place] [address] Care Team Providers Care Cane Weigher Helper Name Role Phone Name, Hill HERNANDEZ Primary Care Provider [phone] Encounter Details Date Type Department Care Team (Latest Contact Info) Description 07/26/2021 Abstract [facility] CONVERSIONS Dental, Provider, DDS Social History Tobacco [...] Visit [facility] MEDICINE [address] [place] [address] Name, MD Hill [address] [place] [address] documented as of this encounter Visit Diagnoses Not on filedocumented in this encounter Care Teams Cane Weigher Helper Relationship Specialty Start Date End Date Name, MD Hill [address] [place] [address] PCP - General Family Medicine 03/15/15 documented as of this encounter
--- OUTSIDE RECORDS SUMMARY | 2024-11-20 10:52 | XMS_ITS | Encounter Summary ---
Author Organization [facility] Address [id number] [place] [phone] Care Team Providers Care Servicing Manager Name Role Phone Gina Fonseca MD Primary Care Provider [phone] Encounter Details Date Type Department Care Team (Late st Contact Info) Description 06/10/[address] [facility] - Main Lab [address] [facility] [place] [address] Behzad Conway MD [address] [place] [address] [phone] Anemia, unspecified Social History Tobacco Use Types [...] PM EST Office Visit [facility] Surgery - [place] [address] [phone] Vicente Pearce DPM [address] [facility] [address] [place] [address] documented as of this encounter Visit Diagnoses Diagnosis Anemia, unspecified documented in this encounter Care Teams Servicing Manager Relationship Specialty Start Date End Date Gina Fonseca MD [address] [place], [place] PCP - General Internal Medicine 10/16/21 documented as of this encounter
--- OUTSIDE RECORDS SUMMARY | 2024-11-20 10:52 | XMS_ITS | Encounter Summary ---
Author Organization [employer] Address [address] [facility] 7t [place] [address] Care Team Providers Care Drying Room Attendant Name Role Phone Name, Hill HERNANDEZ Primary Care Provider [phone] Reason for Visit * Reason Onset Date Comments Call Back Request 06/18/2024 Encounter Details Date Type Department Care Team ([facility] st Contact Info) Description 06/18/2024 Telephone [facility] [address] [place], [place] [phone] Name, MD Hill [address] [place] [address] Call Back Request Social History Tobacco Use [...] encounter Miscellaneous Notes * Telephone Encounter - Adids Mary RN - 06/19/2024 9:19 AM EDT [...] - 06/18/2024 3:17 PM EDT Tc from [place] with [facility] regarding ramelteon (Rozerem) 8 MG tablet requesting a call back from nurses to discuss alternative med. [phone] documented in this encounter Plan of Treatment Upcoming Encounters Date Type Department Care Team ([facility] st Contact Info) Description 12/14/2024 10:00 AM EDT Office Visit [facility] [address] [place] [address] Name, MD Hill [address] [place] [address] documented as of this encounter Visit Diagnoses Not on filedocumented in this encounter Additional Health Concerns Assessment Noted Time PHQ-9 Depression Total Score: 4 03/17/19 25 2:14 PM EST documented as of this encounter Care Teams Drying Room Attendant Relationship Specialty Start Date End Date Name, MD Hill [address] [place] [address] PCP - General Family Medicine 03/15/15 documented as of this encounter
--- OUTSIDE RECORDS SUMMARY | 2024-11-20 10:52 | XMS_ITS | Clinical Summary ---
Author Organization [employer] Address [address] [facility] 7t [place] [address] Care Team Providers Care Brick Burner Head Name Role Phone Name, Hill HERNANDEZ Primary Care Provider [phone] Allergies No known active allergies Medications * This document contains information received from the source organization and may not represent a complete record from that organization. Lancets (OneTouch Delica Plus [id number]) misc TEST BLOOD SUGAR THREE TIMES DAILY [...] 11 4 Active Lancets (OneTouch Delica Plus [id number]) miscIndications: Diabetes mellitus type 2 in obese [...] AFTER PROCEDURE APPOINTMENT 4 Active glucose blood (FoundValueTouch Ultra Test) test stripIndications :Type 2 diabetes [...] Plan Internal Follow up with [facility] Patient Self Plan Patient to utilize skills provided in intervention , [facility], Comply with [...] Plan Internal Follow up with [facility] Patient Self Plan Patient to utilize skills provided in intervention , Patient [facility] as needed, Comply with [...] Description 10/29/2024 8:40 AM EDT Office Visit [facility] [address] [place] [address] Alejo Miranda MD Right shoulder pain, unspecified chronicity (Primary Dx) 10/29/2024 Travel 10/19/2024 Telephone [facility] [address] [place] [address] Alejo Miranda MD 10/16/2024 10:00 AM EDT [facility] [address] [address] Alejo Miranda MD Right shoulder pain, unspecified chronicity (Primary Dx) 10/05/2024 9:00 AM EDT Office Visit [facility] [address] [address] Vaishali Gee MD COVID-19 (Primary Dx) 10/05/2024 Travel 10/01/2024 8:40 AM EDT Office Visit [facility] [address] [address] Alejo Miranda MD COVID-19 (Primary Dx); Right knee pain, unspecified chronicity 10/01/2024 Telephone [facility] [address] [place] [address] Livia Tracy MA october recalls 10/01/2024 Travel 09/24/2024 Orders Only [facility] [address] [place] [address] Sharonda Stern NP Primary insomnia (Primary Dx) 09/23/2024 Refill [facility] [address] [place] [address] Sharonda Stern NP 09/23/[address] [address] Teresa Samson RN 09/16/2024 Refill [facility] [address] [facility] [place] [address] Name, MD Hill 09/10/2024 Refill [facility] [address] [place] [address] Name, MD Hill Essential hypertension 08/24/2024 Travel from Last 3 Months Immunizations Immunization Administration [...] Description 12/14/2024 10:00 AM EDT Office Visit [facility] [address] [place] [address] Name, MD Hill [address] [place] [address] Health Maintenance Due Date Last Done Comments [...] complication, without long-term current use of insulin ([facility]) LIPID PANEL, STANDARD Routine 06/11/2024 9:40 AM EDT Type 2 diabetes mellitus with other specified complication, without long-term current use of insulin ([facility]) POCT GLYCATED HEMOGLOBIN, TOTAL Routine 03/17/2024 2:16 PM EST Type 2 diabetes mellitus with other specified complication, without long-term current use of insulin ([facility]) PROPHYLAXIS - ADULT Routine 05/27/2023 1 [...] AM EDT Narrative 10/16/2024 11:41 [place] [address] XRay Report Signed Patient: Azeb Kennedy MR#: [id number] 4 : 1945 Acct:[id number] Age/Sex: 79 / F ADM Date: 10/16/24 Loc: HO.HHCX Attending Dr: Alejo Miranda MD Ordering Physician: Alejo Miranda MD Date of Service: 10/16/24 Procedure(s): XR shoulder RT min 2V Accession Number(s): [id number] cc: Alejo Miranda MD EXAMINATION: XR SHOULDER, [...] Maricruz Tavares MD 10/16/2024 11:39 AM EDT Dictated By: Maricruz Tavares MD Signed By: <Electronically signed by Maricruz Tavares MD in OV> 10/16/24 1139 DD/ 1050 TD/TT: 10/16/24 1100 Outside Sales Account Representative: Procedure Note Donotuseinterpreter, Image - 10/16/2024 [place] [address] XRay Report Signed Patient: Abraham Kennedy#: [id number] 4 : 8Acct:[id number] Age/Sex: 79 / FADM Date: 10/16/24 Loc: HO.HHCX Attending Dr: Alejo Miranda MD Ordering Physician: Alejo Miranda MD Date of Service: 10/16/24 Procedure(s): XR shoulder RT min 2V Accession Number(s): [id number] cc: Alejo Miranda MD EXAMINATION: XR SHOULDER, [...] 10/16/24 1139 DD/ 1050 TD/TT: 10/16/24 1100 Outside Sales Account Representative: Alejo Miranda MD IMG XR PROCEDURES Final Result * XR Knee 3 Views Right (10/16/2024 10:12 AM EDT) Anatomical Region Laterality Modality Lower Extremities, Knee Right Radiogra phic Imaging 10/16/2024 10:1 2 AM EDT Narrative 10/16/2024 11:47 AM EDT [address] [address] XRay Report Signed Patient: Azeb Kennedy MR#: [id number] 4 : 1945 Acct:[id number] Age/Sex: 79 / F ADM Date: 10/16/24 Loc: .HHCX Attending Dr: Alejo Miranda MD Ordering Physician: Alejo Miranda MD Date of Service: 10/16/24 Procedure(s): XR knee RT 3V Accession Number(s): [id number] cc: Alejo Miranda MD EXAMINATION: XR KNEE, [...] 10/16/24 1144 DD/ 1012 TD/TT: 10/16/24 1100 Outside Sales Account Representative: Procedure Note Donotuseinterpreter, Image - 10/16/2024 [facility] [address] [place] [address] XRay Report Signed Patient: Abraham Kennedy#: [id number] 4 : 8Acct:[id number] Age/Sex: 79 / FADM Date: 10/16/24 [facility] Dr: Alejo Miranda MD Ordering Physician: Alejo Miranda MD Date of Service: 10/16/24 Procedure(s): XR knee RT 3V Accession Number(s): [id number] cc: Alejo Miranda MD EXAMINATION: XR KNEE, [...] 10/16/24 1144 DD/ 1012 TD/TT: 10/16/24 1100 Outside Sales Account Representative: Alejo Miranda MD IMG XR PROCEDURES Final [...] AM EDT) Influenza B Negative Negative, Indeterminate [facility] Swab 10/01/2024 8:54 AM EDT Alejo Miranda MD POINT OF CARE TEST ENTER/EDIT OR DERABLES Final Result Performing Organization Address [facility]/ZIP Co de Phone Number [facility] [address] [place] [phone] * Influenza A (ID NOW Rapid Molecular) (10/01/2024 8:54 AM EDT) Influenza A Negative Negative, Indeterminate [facility] Swab 10/01/2024 8:54 AM EDT Alejo Miranda MD POINT OF CARE TEST ENTER/EDIT OR DERABLES Final Result Performing Organization Address [facility] Co de Phone Number [facility] [address] [place] [phone] * T-SPOT??.TB (08/24/2024 8:58 AM EDT) T Spot TB Negative Negative [facility] Comment:A negative test resu lt does [...] as aquantitative test. TS PANEL A 0 [facility] TS PANEL B 0 [facility] Negative Control Passed [facility] Positive Control Passed [facility] Comment:For additional infor bharath, please refer tohttp://education.Everbridge/faq/DOI371(This link is being provided for informational/educational purposes only.)REPORT COMMENT:REC'D AT [facility] TEST WAS PERFORMED AT:[employer] [id number] [place] [address]AQNWZHHMANOHAR SKY MD,PHD 08/24/2024 8:58 AM EDT 08/24/2024 10:59 AM EDT us Hill Dickson MD LAB BLOOD ORDERABLES Final Resul t Performing Organization Address [facility] Co de Phone Number [facility] [address] [place] [address] [phone] * Albumin, Random Urine W/Creatinine (06/11/2024 9:40 AM EDT) Creatinine, Urine 93.85 mg/dL [facility] Microalbumin Urine 25.0 mg/L [facility] Microalbum Creatinine Ratio Ur 26.6 <30 ug/mg cr [facility] Comment:Albumin/Creatinine R atio Reference Ranges: Normal: < 30 ug/mg creatinine Microalbuminuria: 30 - 300 ug/mg creatinineClinical Albuminuria: > 300 ug/mg creatinine Urine (Urine, Random) 06/11/2024 9:40 AM EDT 06/11/2024 11:25 AM EDT us Hill Dickson MD LAB URINE ORDERABLES Final Resul t Performing Organization Address [facility]/ZIP Co de Phone Number [facility] [address] [place] [phone] * (ABNORMAL) Lipid Panel, Standard (06/11/2024 9:40 AM EDT) Triglycerides 144 <150 mg/dL [facility] Comment:Desirable Triglyceri de: less than 150 mg/dLBorderline High Triglyceride 150-199 mg/dLHigh Triglyceride: 200-499 mg/dLVery High Triglyceride: greater than or equal to 5OO mg/dL Cholesterol 195 <200 mg/dL [facility] Comment:Desirable Cholestero l: less than 200 mg/dLBorderline High Cholesterol: 200-239 mg/dLHigh Cholesterol: greater than 239 mg/dL LDL Cholesterol Calculated 115(H) <100 mg/dL [facility] Comment:Desirable LDL: less than 100 mg/dLNear Optimal/Above Optimal LDL: 110- 129 mg/dLBorderline High LDL: 130-159 mg/dLHigh LDL: 160-189 mg/dLVery High LDL: greater than or equal to 190 mg/dL HDL Cholesterol 52 >40 mg/dL [facility] Comment:Desirable HDL: great er than 40 mg/dL Note: This HDL assay may give artificially low results in patients with liver disease. Blood Venous blood specimen / Unknown 06/11/2024 9:40 AM EDT 06/11/2024 11:17 AM EDT us Hill Dickson MD LAB BLOOD ORDERABLES Final Resul t [facility] [address] [place] [phone] * (ABNORMAL) POCT HGB A1C (03/17/2024 2:16 PM EST) Hemoglobin A1C 6.3(A) 4.0 - 6.0 % QC Media Lot # [id number] Lot# Expiration Date [id number] Blood 03/17/2024 2:16 PM EST us Hill Dickson MD POINT OF CARE TEST ENTER/EDIT OR DERABLES Final Result * Diabetes Eye Exam (03/22/2023) Eye Exam Normal Normal, BIRADS 0 , BIRADS 1 , BIRADS 2, BIRADS 3 , BIRADS 4+ Hill Dickson MD HEALTH MAINTENANCE Final Result * Colonoscopy (03/03/2014 2:40 PM EST) Colonoscopy Normal Normal Narrative Hafsa Lares - 03/03/2014 2:40 PM EST Recommended 10 year follow up [facility] Provider HEALTH MAINTENANCE Final Result * Hepatitis C Antibody (09/15/2012) Hepatitis C Antibody Nonreactive Blood us Hill Dickson MD HEALTH MAINTENANCE Final Result from Last 3 Months or Most Recently Relevant to Health Maintenance Insurance [facility] STANDARD [facility] PRISON OPTIONS (O D-SNP) DENTAL - [facility] [address] [place] [address] [phone] [address] [place] [phone] Care Teams Brick Burner Head Relationship Specialty Start Date End Date Name, MD Hill [address] [place] [address] PCP - General Family Medicine 03/15/15
--- OUTSIDE RECORDS SUMMARY | 2024-11-20 10:52 | XMS_ITS | Encounter Summary ---
Author Organization [employer] Address [address] [facility] 7t [place] [address] Care Team Providers Care Php Programmer Name Role Phone Name, Hill HERNANDEZ Primary Care Provider [phone] Encounter Details Date Type Department Care Team (Latest Contact Info) Description 01/06/2020 Abstract [facility] CONVERSIONS Dental, Provider, DDS Social History [...] EDT Office Visit [facility] [address] [place] [address] Name, MD Hill [address] [place] [address] documented as of this encounter Visit Diagnoses Not on filedocumented in this encounter Care Teams Php Programmer Relationship Specialty Start Date End Date Name, MD Hill [address] [place] [address] PCP - General Family Medicine 03/15/15 documented as of this encounter
--- OUTSIDE RECORDS SUMMARY | 2024-11-20 10:52 | XMS_ITS | Encounter Summary ---
Author Organization [employer] Address [address] [facility] 7t [place] [address] Care Team Providers Care Centrifugal Supervisor Name Role Phone Name, Hill HERNANDEZ Primary Care Provider [phone] Reason for Visit * Reason Comments Med Refill Encounter Details Date Type Department Care Team ([facility] st Contact Info) Description 07/02/[address] [facility] [address] [place], [place] [phone] Name, MD Hill [address] [place] [address] Social History Tobacco Use Types Packs/Day Years [...] Description 12/14/2024 10:00 AM EDT Office Visit [facility] [address] [place] [address] Name, MD Hill [address] [place] [address] documented as of this encounter Visit Diagnoses Not on filedocumented in this encounter Additional Health Concerns Assessment Noted Time PHQ-9 Depression Total Score: 4 03/17/19 25 2:14 PM EST documented as of this encounter Care Teams Centrifugal Supervisor Relationship Specialty Start Date End Date NameHill MD [address] [place] [address] PCP - General Family Medicine 03/15/15 documented as of this encounter
--- OUTSIDE RECORDS SUMMARY | 2024-11-20 10:52 | XMS_ITS | Encounter Summary ---
Author Organization [facility] Address [id number] [place] [address] Care Team Providers Care Redipper Name Role Phone Gina Fonseca MD Primary Care Provider [phone] Encounter Details Date Type Department Care Team (Late Contact Info) Description 06/04/2024 Lab Requisition [facility] - Main Lab [address] [facility] [place] [address] Behzad Conway MD [address] [place] [address] [id number] Anemia, unspecified; Type 2 diabetes mellitus without [...] PM EST Office Visit Orthopedic Surgery - [place] [address] [address] Vicente Pearce DPM [address] [address] documented as of this encounter Procedures Procedure Name Priority Date/Time Associated Diagnosis Comments COMPLETE BLOOD COUNT Routine 06/04/2024 7:34 AM EDT Anemia, unspecified Type 2 diabetes mellitus without complications (CMS/HCC V24, CMS/HCC V28) HEMOGLOBIN A1C Routine 06/04/2024 7:34 AM EDT Anemia, unspecified Type 2 diabetes mellitus without complications ([facility] V24, [facility] V28) COMPREHENSIVE METABOLIC PANEL Routine 06/04/2024 7:34 AM EDT Anemia, unspecified Type 2 diabetes mellitus without complications ([facility] V24, [facility] V28) documented in this encounter Results * (ABNORMAL) Hemoglobin A1c (06/04/2024 7:34 AM EDT) Pathologist [facility] Hemoglobin A1C 6.6(H) <6.5 % LAB CHEMISTRY METHOD 06/04/2024 12:34 PM EDT [facility] Mean Bld Glu Estim. 143 mg/dL LAB CHEMISTRY METHOD 06/04/2024 12:34 PM EDT [facility] Blood Venous blood specimen / Unknown Venipuncture / Unknown 06/04/2024 7:34 AM EDT 06/04/2024 9:59 AM EDT Behzda Conway MD LAB BLOOD ORDERABLES Final Result [facility] [address] [place] [address], * (ABNORMAL) Comprehensive metabolic panel (06/04/2024 7:34 AM EDT) [facility] Sodium 139 133 - 145 mmol/L LAB CHEMISTRY METHOD 06/04/2024 10:53 AM EDT [facility] Potassium 4.6 3.5 - 5.5 mmol/L LAB CHEMISTRY METHOD 06/04/2024 10:53 AM EDT [facility] Chloride 105 96 - 110 mmol/L LAB CHEMISTRY METHOD 06/04/2024 10:53 AM EDT [facility] CO2 30 21 - 32 mmol/L LAB CHEMISTRY METHOD 06/04/2024 10:53 AM [facility] Anion Gap 4 3 - 11 LAB CHEMISTRY METHOD 06/04/2024 10:53 AM [facility] Glucose 105(H) 70 - 100 mg/dL LAB CHEMISTRY METHOD 06/04/2024 10:53 AM [facility] BUN 18 5 - 25 mg/dL LAB CHEMISTRY METHOD 06/04/2024 10:53 AM [facility] Creatinine 0.74 0.50 - 1.10 mg/dL LAB CHEMISTRY METHOD 06/04/2024 10:53 AM [facility] eGFR 83 >=60 mL/min/1. 73m2 LAB CHEMISTRY METHOD 06/04/2024 10:53 AM [facility] Comment:Calculation based on the Chronic Kidney Disease Epidemiology Collaboration (CKD-EPI) equation refit without adjustment for race. BUN/Creatinine Ratio 24.3 LAB CHEMISTRY METHOD 06/04/2024 10:53 AM [facility] Calcium 9.2 8.5 - 10.5 mg/dL LAB CHEMISTRY METHOD 06/04/2024 10:53 AM [facility] AST (SGOT) 37 10 - 42 unit/L LAB CHEMISTRY METHOD 06/04/2024 10:53 AM [facility] ALT (SGPT) 38 10 - 60 unit/L LAB CHEMISTRY METHOD 06/04/2024 10:53 AM [facility] Alkaline Phosphatase 112 42 - 121 unit/L LAB CHEMISTRY METHOD 06/04/2024 10:53 AM [facility] Total Protein 7.3 6.0 - 8.0 g/dL LAB CHEMISTRY METHOD 06/04/2024 10:53 AM [facility] Albumin 3.7 3.2 - 5.0 g/dL LAB CHEMISTRY METHOD 06/04/2024 10:53 AM [facility] Total Bilirubin 0.4 0.0 - 1.4 mg/dL LAB CHEMISTRY METHOD 06/04/2024 10:53 AM EDT [facility] Blood Venous blood specimen / Unknown Venipuncture / Unknown 06/04/2024 7:34 AM EDT 06/04/2024 9:59 AM EDT us Behzad Conway MD LAB BLOOD ORDERABLES Final Result [facility] [address] [place] [address], * (ABNORMAL) Complete blood count (06/04/2024 7:34 AM EDT) WBC 5.6 4.8 - 10.8 K/mcL LAB HEMETOLOGY METHOD 06/04/2024 10:31 AM [facility] RBC 4.10 3.80 - 4.80 M/mcL LAB HEMETOLOGY METHOD 06/04/2024 10:31 AM [facility] Hemoglobin 12.7 11.5 - 16.0 g/dL LAB HEMETOLOGY METHOD 06/04/2024 10:31 AM [facility] Hematocrit 39.9 35.0 - 47.0 % LAB HEMETOLOGY METHOD 06/04/2024 10:31 AM [facility] MCV 97.8 79.0 - 98.0 FL LAB HEMETOLOGY METHOD 06/04/2024 10:31 AM [facility] MCH 31.1 27.0 - 32.0 pcg LAB HEMETOLOGY METHOD 06/04/2024 10:31 AM [facility] MCHC 31.8(L) 32.0 - 37.0 g/dL LAB HEMETOLOGY METHOD 06/04/2024 10:31 AM [facility] RDW 13.2 11.0 - 15.0 % LAB HEMETOLOGY METHOD 06/04/2024 10:31 AM EDT [facility] Platelets 200 130 - 400 K/mcL LAB HEMETOLOGY METHOD 06/04/2024 10:31 AM EDT [facility] MPV 11.4(H) 7.0 - 11.0 FL LAB HEMETOLOGY METHOD 06/04/2024 10:31 AM EDT [facility] NRBC 0.0 <1.0 % LAB HEMETOLOGY METHOD 06/04/2024 10:31 AM EDT [facility] NRBC Absolute 0.00 <0.10 K/mcL LAB HEMETOLOGY METHOD 06/04/2024 10:31 AM EDT [facility] Blood Venous blood specimen / Unknown Venipuncture / Unknown 06/04/2024 7:34 AM EDT 06/04/2024 9:59 AM EDT us Behzad Conway MD LAB BLOOD ORDERABLES Final Result [facility] [address] [place] [address], documented in this encounter Visit Diagnoses Diagnosis Anemia, unspecified Type 2 diabetes mellitus without complications (CMS/HCC V24, CMS/HCC V28) documented in this encounter Care Teams Redipper Relationship Specialty Start Date End Date Gina Fonseca MD [address] [place] [address] PCP - General Internal Medicine 10/16/21 documented as of this encounter
--- OUTSIDE RECORDS SUMMARY | 2024-11-20 10:52 | XMS_ITS | Clinical Summary ---
Author Organization [address] [place] [address] Address 175 [place] [address] Phone Care Team Providers Care Millinery Worker Name Role Phone Gina Fonseca MD Primary [...] type 2 (diabetes mellitus , type 2) ([facility] V24, [facility] V28) 12/24/2012 DX:DM type 2 (diabetes hailee itus, type 2) ([facility]) Family History Medical History Relation Name Comments Cataracts Father Glaucoma Father Breast cancer Mother 75 Breast cancer Sister 1 70 Blindness Neg Hx Macular degeneration Neg Hx Strabismus Neg Hx Relation Name Status Comments Daughter Alive HTN Father ID and DM Mother 75 Breast cancer Sister [...] PM EST Office Visit Orthopedic Surgery - [place] [address] [address] Vicente Pearce, DPM [address] [phone] Health Maintenance Due Date Last Done Comments [...] 2 diabetes mellitus without complications (CMS/HCC V24, CMS/[facility] V28) HEMOGLOBIN A1C Routine 06/04/2024 7:34 AM [...] Hemoglobin A1c (06/04/2024 7:34 AM EDT) Pathologist [facility] Hemoglobin A1C 6.6(H) <6.5 % LAB CHEMISTRY METHOD 06/04/2024 12:34 PM EDT [facility] Mean Bld Glu Estim. 143 mg/dL LAB CHEMISTRY METHOD 06/04/2024 12:34 PM EDT [facility] Blood Venous blood specimen / Unknown Venipuncture / Unknown 06/04/2024 7:34 AM EDT 06/04/2024 9:59 AM EDT Behzad Conway MD LAB BLOOD ORDERABLES Final Result [facility] [address] [place] [address], * (ABNORMAL) Comprehensive metabolic panel (06/04/2024 7:34 AM EDT) [facility] Sodium 139 133 - 145 mmol/L LAB CHEMISTRY METHOD 06/04/2024 10:53 AM [facility] Potassium 4.6 3.5 - 5.5 mmol/L LAB CHEMISTRY METHOD 06/04/2024 10:53 AM [facility] Chloride 105 96 - 110 mmol/L LAB CHEMISTRY METHOD 06/04/2024 10:53 AM [facility] CO2 30 21 - 32 mmol/L LAB CHEMISTRY METHOD 06/04/2024 10:53 AM [facility] Anion Gap 4 3 - 11 LAB CHEMISTRY METHOD 06/04/2024 10:53 AM [facility] Glucose 105(H) 70 - 100 mg/dL LAB CHEMISTRY METHOD 06/04/2024 10:53 AM [facility] BUN 18 5 - 25 mg/dL LAB CHEMISTRY METHOD 06/04/2024 10:53 AM [facility] Creatinine 0.74 0.50 - 1.10 mg/dL LAB CHEMISTRY METHOD 06/04/2024 10:53 AM [facility] eGFR 83 >=60 mL/min/1. 73m2 LAB CHEMISTRY METHOD 06/04/2024 10:53 AM [facility] Comment:Calculation based on the Chronic Kidney Disease Epidemiology Collaboration (CKD-EPI) equation refit without adjustment for race. BUN/Creatinine Ratio 24.3 LAB CHEMISTRY METHOD 06/04/2024 10:53 AM [facility] Calcium 9.2 8.5 - 10.5 mg/dL LAB CHEMISTRY METHOD 06/04/2024 10:53 AM [facility] AST (SGOT) 37 10 - 42 unit/L LAB CHEMISTRY METHOD 06/04/2024 10:53 AM [facility] ALT (SGPT) 38 10 - 60 unit/L LAB CHEMISTRY METHOD 06/04/2024 10:53 AM [facility] Alkaline Phosphatase 112 42 - 121 unit/L LAB CHEMISTRY METHOD 06/04/2024 10:53 AM [facility] Total Protein 7.3 6.0 - 8.0 g/dL LAB CHEMISTRY METHOD 06/04/2024 10:53 AM [facility] Albumin 3.7 3.2 - 5.0 g/dL LAB CHEMISTRY METHOD 06/04/2024 10:53 AM [facility] Total Bilirubin 0.4 0.0 - 1.4 mg/dL LAB CHEMISTRY METHOD 06/04/2024 10:53 AM [facility] Blood Venous blood specimen / Unknown Venipuncture / Unknown 06/04/2024 7:34 AM EDT 06/04/2024 9:59 AM EDT Behzad Conway MD LAB BLOOD ORDERABLES Final Result [facility] LAB [address] [place] [address], * SCR MAMMO BI INCL CAD (08/11/2018 [...] C Screening (09/15/2012) Hepatitis C Screening abstracted [facility] Provider HEALTH MAINTENANCE Final Result from Last 3 Months or Most Recently Relevant to Health Maintenance Insurance [facility] [employer] Member Subscriber Plan / Payer (Ef fective 2023-Present) Name:Azeb Kennedy Relation to Subscriber:Self Name:Azeb Kennedy Payer ID:[id number] Group ID:[id number] Type:Not on file Address: [place] [address] [address] [id number] Care Teams Millinery Worker Relationship Specialty Start Date End Date Gina Fonseca MD [address] [place], [place] PCP - General Internal Medicine 10/16/21
--- OUTSIDE RECORDS SUMMARY | 2024-11-20 10:52 | XMS_ITS | Encounter Summary ---
Author Organization [employer] Address [address] [facility] 7t [place] [address] Care Team Providers Care Chronograph Operator Name Role Phone Name, Hill HERNANDEZ Primary Care Provider [phone] Encounter Details Date Type Department Care Team (Latest Contact Info) Description 04/21/2019 Abstract [facility] CONVERSIONS Dental, Provider, DDS Social [...] Description 12/14/2024 10:00 AM EDT Office Visit [facility] MEDICINE [address] [place] [address] Name, MD [place] [address] [place] [address] documented as of this encounter Visit Diagnoses Not on filedocumented in this encounter Care Teams Chronograph Operator Relationship Specialty Start Date End Date Name, MD Hill [address] [place] [address] PCP - General Family Medicine 03/15/15 documented as of this encounter
--- OUTSIDE RECORDS SUMMARY | 2024-11-20 10:52 | XMS_ITS | Encounter Summary ---
Author Organization [employer] Address [address] [facility] 7t [place] [address] Care Team Providers Care Horse Stud Manager Name Role Phone Name, Hill HERNANDEZ Primary Care Provider [phone] Reason for Visit * Reason Onset Date Comments Pre Op 10/02/2023 Encounter Details Date Type Department Care Team ([facility] st Contact Info) Description 10/02/2023 Telephone [facility] [address] [place], [place] [phone] Name, MD Hill [address] [place] [address] Pre Op Social History Tobacco Use Types [...] No Surgeon's name: Tomás Hopkins Facility name: [facility] Surgeon's office number: [phone] Surgeon's office fax number: [phone] Contact name: Yohana documented in this encounter Plan of Treatment Upcoming Encounters Date Type Department Care Team (Late st Contact Info) Description 12/14/2024 10:00 AM EDT Office Visit [facility] [address] [place] [address] Name, MD [place] [address] [place] [address] documented as of this encounter Visit Diagnoses Not on filedocumented in this encounter Additional Health Concerns Assessment Noted Time PHQ-9 Depression Total Score: 12 05/08/ 024 1:00 PM EDT documented as of this encounter Care Teams Horse Stud Manager Relationship Specialty Start Date End Date Name, MD Hill [address] [place] [address] PCP - General Family Medicine 03/15/15 documented as of this encounter
--- OUTSIDE RECORDS SUMMARY | 2024-11-20 10:53 | XMS_ITS | Encounter Summary ---
Author Organization [employer] Address 75 [facility] 7t [place] [address] Care Team Providers Care Loop Sewer Name Role Phone Name, Hill HERNANDEZ Primary Care Provider [phone] Reason for Visit * Reason Onset Date Comments Pre-op Visit 04/25/2023 Encounter Details Date Type Department Care Team ([facility] st Contact Info) Description 04/25/2023 Telephone [facility] MEDICINE 230 [place], [place] [phone] Name, MD [place] [address] [place] [address] Pre-op Visit Social History Tobacco Use Types [...] Lab needed: No EKG: No Surgeon's name: [facility] name: [facility] Surgeon's office number: [phone] Surgeon's office fax number: [phone] Contact name (person you spoke with): Patricia Last office note from surgeon requested documented in this encounter Plan of Treatment Upcoming Encounters Date Type Department Care Team (Late st Contact Info) Description 12/14/2024 10:00 AM EDT Office Visit [facility] MEDICINE [address] [place] [address] Name, MD Hill [address] [place] [address] documented as of this encounter Visit Diagnoses Not on filedocumented in this encounter Additional Health Concerns Assessment Noted Time PHQ-9 Depression Total Score: 0 03/07/19 24 8:57 AM EST documented as of this encounter Care Teams Loop Sewer Relationship Specialty Start Date End Date Name, MD Hill [address] [place] [address] PCP - General Family Medicine 03/15/15 documented as of this encounter
--- OUTSIDE RECORDS SUMMARY | 2024-11-20 10:53 | XMS_ITS | Encounter Summary ---
Author Organization [employer] Address [address] [facility] 7t [place] [address] Care Team Providers Care Nutritionalist Name Role Phone Name, Hill HERNANDEZ Primary Care Provider [phone] Reason for Visit * Reason Onset Date Comments FYI 05/07/2023 Encounter Details Date Type Department Care Team ([facility] st Contact Info) Description 05/07/2023 Telephone [facility] [address] [place], [place] [phone] Name, MD Hill [address] [place] [address] Social History Tobacco Use Types Packs/Day Years [...] blood pressure and Charla rojas advised by global technical writer that pt was seen yesterday and have an appt on . Any questions to Dennise [phone] documented in this encounter Plan of Treatment Upcoming Encounters Date Type Department Care Team (Late st Contact Info) Description 12/14/2024 10:00 AM EDT Office Visit [facility] [address] [place] [phone] Name, MD Hill [address] [place] [address] documented as of this encounter Visit Diagnoses Not on filedocumented in this encounter Additional Health Concerns Assessment Noted Time PHQ-9 Depression Total Score: 0 03/07/19 24 8:57 AM EST documented as of this encounter Care Teams Nutritionalist Relationship Specialty Start Date End Date Name, MD Hill [address] [place] [address] PCP - General Family Medicine 03/15/15 documented as of this encounter
--- OUTSIDE RECORDS SUMMARY | 2024-11-20 10:53 | XMS_ITS | Encounter Summary ---
Author Organization [employer] Address 75 [facility] 7t [place] [address] Care Team Providers Care Community Service Aide Name Role Phone Name, Hill HERNANDEZ Primary Care Provider [phone] Encounter Details Date Type Department Care Team (Latest Contact Info) Description 04/15/2018 Abstract [facility] CONVERSIONS Dental, Provider, DDS Social History Tobacco [...] 10:00 AM EDT Office Visit [facility] MEDICINE [address] [place] [address] Name, MD Hill [address] [place] [address] documented as of this encounter Visit Diagnoses Not on filedocumented in this encounter Care Teams Community Service Aide Relationship Specialty Start Date End Date Name, MD Hill [address] [place] [address] PCP - General Family Medicine 03/15/15 documented as of this encounter
--- OUTSIDE RECORDS SUMMARY | 2024-11-20 10:53 | XMS_ITS | Encounter Summary ---
Author Organization [employer] Address [address] [facility] 7t [place] [address] Care Team Providers Care Ground Instructor Advanced Name Role Phone Name, Hill HERNANDEZ Primary Care Provider [phone] Encounter Details Date Type Department Care Team (Late st Contact Info) Description 01/21/2023 Telephone [facility] MEDICINE 230 [place], [place] [phone] Name, MD Hill [address] [place] [address] Social History Tobacco Use Types Packs/Day Years [...] Description 12/14/2024 10:00 AM EDT Office Visit [facility] MEDICINE [address] [place] [address] Name, MD Hill [address] [place] [address] documented as of this encounter Visit Diagnoses Not on filedocumented in this encounter Additional Health Concerns Assessment Noted Time PHQ-9 Depression Total Score: 19 023 1:35 PM EDT documented as of this encounter Care Teams Ground Instructor Advanced Relationship Specialty Start Date End Date NameHill MD [address] [place] [address] PCP - General Family Medicine 03/15/15 documented as of this encounter
--- OUTSIDE RECORDS SUMMARY | 2024-11-20 10:53 | XMS_ITS | Encounter Summary ---
Author Organization [employer] Address 75 [facility] 7t [place] [address] Care Team Providers Care Windshield Installer Name Role Phone Name, Hill HERNANDEZ Primary Care Provider [phone] Reason for Visit * Reason Onset Date Comments requesting a call 09/04/2022 Encounter Details Date Type Department Care Team ([facility] st Contact Info) Description 09/04/2022 Telephone [facility] MEDICINE [address] [place] [phone] Name, MD Hill [address] [place] [address] requesting a call Social History Tobacco Use [...] - 09/05/2022 2:46 PM EDT T/C to [phone] for below message through [employer] id - [id number] for below message, pt. States she is all set, she does not has any question right now. Pt. Advised to give call to [facility] if any questions or concerns. * Telephone Encounter - Hemalatha Rodriguez - 09/04/2022 2:39 PM EDT Tc from pt requesting a call. Pt did not go in to detail and is aware of upcoming appointment. Please contact pt at [phone] (Tamazight speaker) documented in this encounter Plan of Treatment Upcoming Encounters Date Type Department Care Team (Late st Contact Info) Description 12/14/2024 10:00 AM EDT Office Visit [facility] MEDICINE [address] [place] [address] Name, MD Hill [address] [place] [address] documented as of this encounter Visit Diagnoses Not on filedocumented in this encounter Additional Health Concerns Assessment Noted Time PHQ-9 Depression Total Score: 19 023 1:35 PM EDT documented as of this encounter Care Teams Windshield Installer Relationship Specialty Start Date End Date Name, MD Hill [address] [place] [address] PCP - General Family Medicine 03/15/15 documented as of this encounter
--- OUTSIDE RECORDS SUMMARY | 2024-11-20 10:53 | XMS_ITS | Encounter Summary ---
Author Organization [employer] Address 75 [facility] 7t [place] [address] Care Team Providers Care Pecan Mallow Dipper Name Role Phone Name, Hill HERNANDEZ Primary Care Provider [phone] Reason for Visit * Reason Onset Date Comments triage 07/19/2022 Encounter Details Date Type Department Care Team ([facility] st Contact Info) Description 07/19/2022 Telephone [facility] MEDICINE 230 [place], [place] [phone] Name, MD Hill [address] [place] [address] triage Social History Tobacco Use Types Packs/Day [...] worse The caller accepted this outcome speaks tajik documented in this encounter Plan of Treatment Upcoming Encounters Date Type Department Care Team ([facility] st Contact Info) Description 12/14/2024 10:00 AM EDT Office Visit [facility] MEDICINE [address] [place] [address] Name, MD Hill [address] [place] [address] documented as of this encounter Visit Diagnoses Not on filedocumented in this encounter Additional Health Concerns Assessment Noted Time PHQ-9 Depression Total Score: 19 023 1:35 PM EDT documented as of this encounter Care Teams Pecan Mallow Dipper Relationship Specialty Start Date End Date Name, MD Hill [address] [place] [address] PCP - General Family Medicine 03/15/15 documented as of this encounter
--- OUTSIDE RECORDS SUMMARY | 2024-11-20 10:53 | XMS_ITS | Encounter Summary ---
Author Organization [employer] Address [address] [place] [address] 7t [place] [address] Care Team Providers Care Lead Teller Name Role Phone Name, Hill HERNANDEZ Primary Care Provider [phone] Encounter Details Date Type Department Care Team (Late st Contact Info) Description 07/30/2022 Abstract [facility] MEDICINE [address] [place] [address] [phone] Name, MD iHll [address] [place] [address] [phone] Social History Tobacco Use Types Packs/Day Years [...] Description 12/14/2024 10:00 AM EDT Office Visit [facility] MEDICINE [address] [place] [address] [phone] Name, MD Hill [address] [place] [address] [phone] documented as of this encounter Procedures Procedure [...] documented as of this encounter Care Teams Lead Teller Relationship Specialty Start Date End Date Name, MD Hill [address] [place] [address] PCP - General Family Medicine 03/15/15 documented as of this encounter
--- OUTSIDE RECORDS SUMMARY | 2024-11-20 10:53 | XMS_ITS | Encounter Summary ---
Author Organization [employer] Address [address] [facility] [address] [place] [address] Care Team Providers Care Cardiac Monitor Technician Name Role Phone Name, Hill HERNANDEZ Primary Care Provider [phone] Encounter Details Date Type Department Care Team (Late st Contact Info) Description 02/01/2023 Telephone [facility] MEDICINE 230 [place], [place] [phone] Name, MD Hill [address] [place] [address] Social History Tobacco Use Types Packs/Day Years [...] 10:00 AM EDT Office Visit [facility] MEDICINE [address] [place] [address] Name, MD Hill [address] [place] [address] documented as of this encounter Visit Diagnoses Not on filedocumented in this encounter Additional Health Concerns Assessment Noted Time PHQ-9 Depression Total Score: 19 023 1:35 PM EDT documented as of this encounter Care Teams Cardiac Monitor Technician Relationship Specialty Start Date End Date NameHill MD 230 [place] [address] PCP - General Family Medicine 03/15/15 documented as of this encounter
--- OUTSIDE RECORDS SUMMARY | 2024-11-20 10:53 | XMS_ITS | Encounter Summary ---
Author Organization [employer] Address [address] [facility] 7t [place] [address] Care Team Providers Care Sales Floor Team Member Name Role Phone Name, Hill HERNANDEZ Primary Care Provider [phone] Reason for Visit * Reason Onset Date Comments Med Refill telephone call 10/20/2022 CLINICAL PROGRAM CONSULTANT Services 10/20/2022 The pt requested to have her CLINICAL PROGRAM CONSULTANT services reinstated by CHUYITA. I called to inform her, that she needs to contact her insurance [facility] to make the request, because the referral needs to go through them. I reached a voicemail, and left a msg with the above information. I asked her to contact me at ext [phone], if she has any questions. Encounter Details Date Type Department Care Team (Late st Contact Info) Description 10/20/2022 Refill [facility] MED[facility]INE [address] [place] [address] Name, MD Hill [address] [place] [address] Social History Tobacco Use Types Packs/Day Years [...] EDT The pt requested to have her CLINICAL PROGRAM CONSULTANT services reinstated by CHUYITA. I called to inform her, that she needs to contact her insurance [facility] to make the request, because the referral needs to go through them. I reached a voicemail, and left a msg with the above information. I asked her to contact me at ext [phone], if she has any questions. * Telephone Encounter - Hope Zora - 10/22/2022 10:20 AM EDT Pt walked in requesting a call from PCP or nurses, because she has a question about motorcoach driver services and a form that her pcp signed and she has not hear anything from no one she doesn't specify exactly what she needs, she just wants the call. I told her to go to medical records she said they don't havethe form. Best # to call is [phone] documented in this encounter Plan of Treatment Upcoming Encounters Date Type Department Care Team (Late st Contact Info) Description 12/14/2024 10:00 AM EDT Office Visit [facility] [address] [place] [address] Name, MD Hill [address] [place] [address] documented as of this encounter Visit Diagnoses Not on filedocumented in this encounter Additional Health Concerns Assessment Noted Time PHQ-9 Depression Total Score: 19 023 1:35 PM EDT documented as of this encounter Care Teams Sales Floor Team Member Relationship Specialty Start Date End Date Name, MD Hill [address] [place] [address] PCP - General Family Medicine 03/15/15 documented as of this encounter
--- OUTSIDE RECORDS SUMMARY | 2024-11-20 10:53 | XMS_ITS | Encounter Summary ---
Author Organization [employer] Address [address] [facility] 7t [place] [address] Care Team Providers Care Elevator Repairer Helper Name Role Phone Name, Hill HERNANDEZ Primary Care Provider [phone] Reason for Visit * Reason Onset Date Comments ER Follow-up 05/20/2024 Encounter Details Date Type Department Care Team ([facility] st Contact Info) Description 05/20/2024 Telephone [facility] MEDICINE [address] [place], [place] [id number] Name, MD Hill [address] [place] [address] ER Follow-up Social History Tobacco Use Types [...] PM EDT Please obtain ED report [place] [facility] [place]. Thank you. Triage call to Pt with [facility] Sales Representative [employer] ID [id number]. Pt is called for follow up post [...] advised to call back to [facility] if needed after 05/22/24 and Pt [...] ED visit on : Date: 05/19/24 Hospital: [facility] Seen for: Fall Symptomatic Yes pain on right arm *if yes message should go to Triage Patient advised will forward to team nurse for follow up documented in this encounter Plan of Treatment Upcoming Encounters Date Type Department Care Team (Late st Contact Info) Description 12/14/2024 10:00 AM EDT Office Visit [facility] MED[facility]INE [address] [place] [address] Name, MD Hill [address] [place] [address] documented as of this encounter Visit Diagnoses Not on filedocumented in this encounter Additional Health Concerns Assessment Noted Time PHQ-9 Depression Total Score: 4 03/17/19 25 2:14 PM EST documented as of this encounter Care Teams Elevator Repairer Helper Relationship Specialty Start Date End Date Name, MD Hill [address] [place] [address] PCP - General Family Medicine 03/15/15 documented as of this encounter
--- OUTSIDE RECORDS SUMMARY | 2024-11-20 10:53 | XMS_ITS | Encounter Summary ---
Author Organization [employer] Address 75 [facility] 7t [place] [address] Care Team Providers Care Patient Biller Name Role Phone Name, Hill HERNANDEZ Primary Care Provider [phone] Reason for Visit * Reason Onset Date Comments Call Back Request 02/01/2023 Encounter Details Date Type Department Care Team ([facility] st Contact Info) Description 02/01/2023 Telephone [facility] MEDICINE [address] [place], [place] [phone] Name, MD Hill [address] [place] [address] Call Back Request Social History Tobacco Use [...] 2:16 PM EST T/C to pt. Through [facility] id - [id number] for below message to inform submit paperwork regarding PROGRAMMING EQUIPMENT OPERATOR hours at medical records/ forms dept. Pt. Verbally agreed and understood. * Telephone Encounter - Aylin Duncan - 02/01/2023 3:37 PM EST Tc from pt requesting a call back in regards paperwork for PROGRAMMING EQUIPMENT OPERATOR hours. documented in this encounter Plan of Treatment Upcoming Encounters Date Type Department Care Team (Late st Contact Info) Description 12/14/2024 10:00 AM EDT Office Visit [facility] MEDICINE [address] [place] [address] Name, MD Hill [address] [place] [address] documented as of this encounter Visit Diagnoses Not on filedocumented in this encounter Additional Health Concerns Assessment Noted Time PHQ-9 Depression Total Score: 19 023 1:35 PM EDT documented as of this encounter Care Teams Patient Biller Relationship Specialty Start Date End Date NameHill MD [address] [place] [address] PCP - General Family Medicine 03/15/15 documented as of this encounter
--- OUTSIDE RECORDS SUMMARY | 2024-11-20 10:53 | XMS_ITS | Patient Health Record ---
Author Organization [facility] Address [address] [place] [address] Care Team Providers Care Ichthyologist Name Role Phone Name Hill HERNANDEZ Primary Care Provider James Kaur [phone] Allergies No Known Allergies Reason For Referral No Information Medications Medication SIG (Take, Route, Frequency, Duration) Notes Start Date End Date Status Amitriptyline HCl 25 MG 1 tablet at bedt juan josé Orally Once a day Active Tylenol 8 Hour Arthritis Pain 650 MG 2 tablets as needed Orally every 8 hrs Active Omeprazole 20 MG TAKE 1 CAPSULE BY [facility] DAILY IN THE MORNING Oral [...] Problem Status W/U Status Risk Notes Problem 896374800 Colon cancer screening (Z12.11) Active confirmed Problem 521929559 Gastroesophageal reflux disease without esophagitis (K21.9) Active confirmed Problem 673719627 Gastroesophageal reflux disease, esophagitis presence not specified (K21.9) Active confirmed Problem 77934817 Constipation, unspecified constipation type (K59.00) Active confirmed Encounters Encounter Location Date Provider Diagnosis [facility] [address] [place] [phone] 05/21/2024 James Easton [facility] [address] [place] [address] 06/09/2024 James Easton [facility] [address] [place] [address] 11/02/2024 James Easton Plan Of Treatment Future Test Test Name Order Date COLONOSCOPY 12/02/2013 Next Appt Details Provider Name:James Easton , 03/16/2025 10:50:00 AM, [address], [address], [place], [phone], Insurance Providers Payer Name Payer Address Payer Phone Subscriber Number Group Number Insured Name Patient Relationship to Insured Coverage Start Date Coverage End Date [facility] [address] [place] [address] [id number] RAFFAELE CHUNG Self - patient is the insured Medical (General) History Medical History History ICD Code Tubular adenomas removed in 2004. She had negative followup colonoscopies in 06/2008 and in 02/2014. Diverticulosis GERD--EGD in 2004-small HH--no sig. esop hagitis nor Mccall's Denies HI,CVA,Lung disease,renal disease NIDDM Surgical History Surgery Date(Month/Year) Cholecystectomy Tubal ligation Hysterectomy with ? removal of one ovary Breast reduction Left foot 08/2021
--- OUTSIDE RECORDS SUMMARY | 2024-11-20 10:53 | XMS_ITS | Encounter Summary ---
Author Organization [employer] Address [address] [facility] 7t [place] [address] Care Team Providers Care Commercial Loan Specialist Name Role Phone Name, Hill HERNANDEZ Primary Care Provider [phone] Encounter Details Date Type Department Care Team ([facility] Contact Info) Description 03/26/2022 Orders Only [facility] MED[facility]INE [address] [place] [id number] Jane Oneill LPN Social History Tobacco Use [...] Description 12/14/2024 10:00 AM EDT Office Visit [facility] [address] [place] [address] Name, MD Hill [address] [place] [address] documented as of this encounter Visit Diagnoses Not on filedocumented in this encounter Care Teams Commercial Loan Specialist Relationship Specialty Start Date End Date Name, MD Hill [address] [place] [address] PCP - General Family Medicine 03/15/15 documented as of this encounter
[2024-11-20 11:02] VITALS: BP 139/82; PULSE 60; RESP 19; TEMP 36.7; O2SAT 96
--- NOTE | 2024-11-20 11:04 | PC.NURSE ---
Addendum entered by Antonieta Cortes RN 11/20/24 11:39: Patient was leaving a community clinic and was walking home when she had a mechanical fall. c/o left leg pain. C-collar intact. Lungs clear bilat. Respirations even and non-labored. Abdomen soft, non-tender with positive bowel sounds. Positive pedal pulses with no edema. Original Note: Medical History Sacroiliac joint dysfunction Sacroiliitis Low back pain Primary osteoarthritis of knees, bilateral HTN (hypertension) Diabetes Arthritis
[2024-11-20 14:00] VITALS: BP 159/84; PULSE 58; RESP 18; O2SAT 96
[2024-11-20 15:04] VITALS: BP 159/84; PULSE 58; O2SAT 96
--- NOTE | 2024-11-20 16:19 | MHC.CM.PN ---
CONSULT RECEIVED, PT COMES IN AFTER A FALL IN THE COMMUNITY SHE LIVES ALONE AND HAS A MEDIA SALES CONSULTANT M-F SHE REPORTS HAVING A ROLLATOR AND A CANE, BUT NO WALKER SHE SAYS THE ROLLATOR IS DIFFICULT TO USE IN THE APARTMENT AND SHE HAS FALLEN WHILE USING THE CANE SHE REPORTS SHE TAKES A BUS TO APPTS OR THE SHUTTLE SHE IS AWARE OF CTS TRANSPORT [facility] AND SAYS SHE USES IT AT TIMES SHE WAS SEEN BY PT WHO HAS RECOMMENDED STR, PT SAYS SHE HAS BEEN IN THE PAST AND IS NOT INTERESTED IN GOING AGAIN SHE IS AGREEABLE TO HOME SERVICES REFERRAL MADE SHE WILL NEED BLS TRANSPORT WHICH WAS BOOKED FOR [id number] WITH [facility] POSTDOCTORAL RESEARCH ASSOCIATE USED
[2024-11-20 18:14] VITALS: BP 159/84; PULSE 58; RESP 18; TEMP 36.7; O2SAT 96
--- NOTE | 2024-11-20 18:42 | MHC.CM.ED ---
Pt d/c home via ambulance. Refuses STR. Is agreeable to home PT. cancer program director used as patient is Kiswahili speaking only. [facility] did not have PT coverage. [facility] has accepted patient.
--- NOTE | 2024-11-22 08:13 | MHC.CM.ED ---
Received voicemail from [facility] requesting ER d/c summary and Face to Face. These documents were faxed to [phone] as requested.
== END 2024-11-20 18:16 | disposition home or self-care (01) ==
PROVIDERS: Emergency Provider Emergency Medicine Emergency Medical Services; PCP Internal Medicine Geriatric Medicine
DX: S80.02XA Contusion of left knee, initial encounter (principal); M17.0 Bilateral primary osteoarthritis of knee; I10 Essential (primary) hypertension; R51.9 Headache, unspecified; M54.2 Cervicalgia; G89.29 Other chronic pain; R26.81 Unsteadiness on feet; M25.511 Pain in right shoulder; W10.1XXA Fall (on)(from) sidewalk curb, initial encounter; Y93.89 Activity, other specified; Y92.480 Sidewalk as the place of occurrence of the external cause; Y99.8 Other external cause status; Z79.899 Other long term (current) drug therapy
CPT/HCPCS: 70450; 72125; 73564; 96372; 97161; 99284; J1885

== ENCOUNTER → 2024-11-20 09:59 | Outpatient (BNV) | payer OTHER, SELFPAY | PROVIDERS: Emergency Provider Emergency Medicine Emergency Medical Services; PCP Internal Medicine Geriatric Medicine; Visit Provider Radiology Diagnostic Radiology | DX: M47.812 Spondylosis without myelopathy or radiculopathy, cervical region (principal); S09.90XA Unspecified injury of head, initial encounter; I67.82 Cerebral ischemia; M25.562 Pain in left knee; W19.XXXA Unspecified fall, initial encounter | CPT/HCPCS: 70450; 72125; 73564 ==

== ENCOUNTER 2024-12-01 | Outpatient (REF) | payer OTHER, SELFPAY ==
--- OUTSIDE RECORDS SUMMARY | 2024-06-09 06:10 | XMS_ITS ---
Author Organization [facility] Address [address] [place] [address] Care Team Providers Care Client Development Manager Name Role Phone Name Hill HERNANDEZ Primary Care Provider James Kaur [phone] REASON FOR VISIT Patient presents today for an upper endo Encounters Encounter Location Date Provider Diagnosis [facility] [address] [place] [address] 06/09/2024 James Easton Plan Of Treatment Next Appt Details Provider Name:James Easton , 03/16/2025 10:50:00 AM, [address], [address], [place], [address], Progress Notes * RAFFAELE CHUNG EDOB:[birth year] (79 yo F)Acc No.[id number]:06/09/2024 Progress Notes Patient: RAFFAELE CARR Provider: Curt Easton MD :1945 A ge:79 Y S ex:Female Date:06/09/2024 Address:[address] [facility] [address], [place], [place] Pcp:Hill Dickson MD Subjective: * Chief Complaints: [...] 06/09/2024 Generated for Tejinder erickson/Andres/Nir on: 1 11:20 AM EDT
--- NOTE | ~2024-12-01 | MR_ITS ---
EXAMINATION: MR SHOULDER WITHOUT CONTRAST, RIGHT CLINICAL INFORMATION: Instability COMPARISON: None available. TECHNIQUE: MRI of the shoulder without contrast was performed on a high-field scanner. FINDINGS: Motion artifact degrading images, limiting evaluation ROTATOR CUFF: Full thickness tear of the supraspinatus and majority of the infraspinatus tendons. There is tendon retraction to the level of the medial aspect of the humeral head. There may be some posterior infraspinatus fibers remaining. Teres minor is intact. Mild subscapularis tendinosis. No muscle atrophy or fatty infiltration. BICEPS: [Not visualized, consistent with full-thickness tear and distal retraction., CORACOACROMIAL ARCH: The undersurface of the acromion is curved with no subacromial spur. Moderate acromioclavicular arthritis. LABRUM/CAPSULE: [Labral degeneration. Posterior labral degenerative fraying/tearing. GLENOHUMERAL JOINT/MARROW: Mild subluxation of the humeral head with respect to glenoid. Mild glenohumeral arthritis. Small-moderate effusion. No axillary lymphadenopathy. MR/MR shoulder RT wo con IMPRESSION: * Full-thickness tear of the supraspinatus and majority of the infraspinatus tendon * Mild subscapularis tendinosis. * Long head biceps tendon full-thickness tear and distal retraction. * Posterior labral degenerative fraying/tearing. *Mild glenohumeral arthritis. Small-moderate effusion. Electronically signed by: Clint Lares MD 12/03/2024 08:16 AM EDT
--- OUTSIDE RECORDS SUMMARY | 2024-12-07 11:20 | XMS_ITS ---
Author Name M[place], [place]. Socorro Olson Address [address] [place] [address] Phone [phone] Organization [facility] Care Team Providers Care Adzing And Boring Machine Helper Name Role Phone Ruth Sen Unavailable [phone] Reason for Referral Not Available Allergies, adverse [...] 2021-12-05 No Data Available OneTouch Delica Plus [id number] Miscellaneous TEST BLOOD SUGAR THREE TIMES DAILY [...] (do not use for phone, instead use 77708-61) [facility]/04/2022 Type 2 diabetes mellitus wit h other specified complicationHyperlipidemia, unspecifiedEssential (primary) hypertensionMajor depressive disorder, recurrent, in remission, unspecifiedPersonal history of (healed) traumatic fracture New patient,40-59min; chronic exacerbation, 2 stable chronic or 1 acute illness add add modifier 95 for video (do not use for phone, instead use 56654-27) [facility] 06/04/2022 New patient,40-59min; chronic exacerbation, 2 stable chronic or 1 acute illness add add modifier 95 for video (do not use for phone, instead use 17816-09) [facility] 06/04/2022 New patient,40-59min; chronic exacerbation, 2 stable chronic or 1 acute illness add add modifier 95 for video (do not use for phone, instead use 38951-90) [facility] 06/04/2022 New patient,40-59min; chronic exacerbation, 2 stable chronic or 1 acute illness add add modifier 95 for video (do not use for phone, instead use 44916-26) [facility] 06/04/2022 New patient,40-59min; chronic exacerbation, 2 stable chronic or 1 acute illness add add modifier 95 for video (do not use for phone, instead use 50903-07) [facility], ([place]) 06/04/2022 New patient,40-59min; chronic exacerbation, 2 stable chronic or 1 acute illness add add modifier 95 for video (do not use for phone, instead use 04618-01) [facility] ([place] 06/04/2022 New patient,40-59min; chronic exacerbation, 2 stable chronic or 1 acute illness add add modifier 95 for video (do not use for phone, instead use 37275-20) [facility] 06/04/2022 Vital Signs Date of Collection Vitals 2022-06-04 10:06:44 Height - 157.48 cmWe ight - 68.04 kgBody Mass Index (BMI) - 27.44 kg/m2 Social History Social History Social History Observation Description Effec tive Time Current Smoking Status Never smoker 2024-11-25 3 Sex Female History of Procedures Procedures Service Procedure code Service date Servicing provider Phone# New patient,40-59min; chronic exacerbation, 2 stable chronic or 1 acute illness add add modifier 95 for video (do not use for phone, instead use 49433-23) [address] 2022-06-04 No Data Available No Data Availa [...] ilable Functional Status Functional Category Effective Dates 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 [...]
--- OUTSIDE RECORDS SUMMARY | 2024-12-07 11:21 | XMS_ITS | Encounter Summary ---
Author Organization [employer] Address [address] [facility] 7t [place] [address] Care Team Providers Care Pricing Coordinator Name Role Phone Name, Hill HERNANDEZ [...] [facility] [address] [place] [address] Name, MD Hill [address] [place] [address] documented as of this encounter Visit Diagnoses Not on filedocumented in this encounter Care Teams Pricing Coordinator Relationship Specialty Start Date End Date Name, MD Hill [address] [place] [address] PCP - General Family Medicine 03/15/15 [facility] 11/23/24 documented as of this encounter
--- OUTSIDE RECORDS SUMMARY | 2024-12-07 11:21 | XMS_ITS | Encounter Summary ---
Author Organization [email or web address] Address [address] [facility] 7t [place] [address] Care Team Providers Care Staff Electrical Engineer Name Role Phone Name, Hill HERNANDEZ Primary Care Provider [phone] Reason for Visit * Reason Onset Date Comments ER Follow-up 05/20/2024 Encounter Details Date Type Department Care Team ([facility] st Contact Info) Description 05/20/2024 Telephone [facility] MEDICINE [address] [place], [place] [phone] Name, MD Hill [address] [place] [address] ER Follow-up Social History Tobacco Use Types [...] PM EDT Please obtain ED report from [facility] 05/19/24. Thank you. Triage call to Pt with [facility] Felting Machine Operator Helper ID [id number]. Pt is called for follow up post [...] Pt is advised to call back to [facility] if needed after 05/22/24 and Pt [...] ED visit on : Date: 05/19/24 Hospital: [facility] Seen for: Fall Symptomatic Yes pain on right arm *if yes message should go to Triage Patient advised will forward to team nurse for follow up documented in this encounter Plan of Treatment Upcoming Encounters Date Type Department Care Team (Late st Contact Info) Description 12/14/2024 10:00 AM EDT Office Visit [facility] MEDICINE [address] [place] [address] Name, MD Hill [address] [place] [address] documented as of this encounter Visit Diagnoses Not on filedocumented in this encounter Additional Health Concerns Assessment Noted Time PHQ-9 Depression Total Score: 4 03/17/19 25 2:14 PM EST documented as of this encounter Care Teams Staff Electrical Engineer Relationship Specialty Start Date End Date Name, MD Hill [address] [place] [address] PCP - General Family Medicine 03/15/15 [facility] 11/23/24 documented as of this encounter
--- OUTSIDE RECORDS SUMMARY | 2024-12-07 11:21 | XMS_ITS | Encounter Summary ---
Author Organization [employer] Address [address] [place] [address] [address] [place] [address] Care Team Providers Care Steam Hoist Operator Name Role Phone Name, Hill HERNANDEZ Primary Care Provider [phone] Encounter Details Date Type Department Care Team (Late st Contact Info) Description 07/30/2022 Abstract [facility] MEDICINE [address] [place] [address] [phone] Name, MD Hill [address] [place] [address] [phone] Social History Tobacco Use Types Packs/Day Years [...] Visit [facility] MED[facility]INE [address] [place] [address] [phone] Name, MD Hill [address] [place] [address] [phone] documented as of this encounter Procedures Procedure [...] documented as of this encounter Care Teams Steam Hoist Operator Relationship Specialty Start Date End Date Name, MD Hill [address] [place] [address] PCP - General Family Medicine 03/15/15 [facility] 11/23/24 documented as of this encounter
--- OUTSIDE RECORDS SUMMARY | 2024-12-07 11:21 | XMS_ITS | Encounter Summary ---
Author Organization [employer] Address [address] [facility] 7t [place] [address] Care Team Providers Care Control Panel Assembler Name Role Phone Name, Hill HERNANDEZ Primary Care Provider [phone] Encounter Details Date Type Department Care Team (Latest Contact Info) Description 01/06/2020 Abstract [facility] CONVERSIONS Dental, Provider, DDS Social [...] Description 12/14/2024 10:00 AM EDT Office Visit [facility] MEDICINE [address] [place] [address] Name, MD Hill [address] [place] [address] documented as of this encounter Visit Diagnoses Not on filedocumented in this encounter Care Teams Control Panel Assembler Relationship Specialty Start Date End Date Name, MD Hill [address] [place] [address] PCP - General Family Medicine 03/15/15 [facility] 11/23/24 documented as of this encounter
--- OUTSIDE RECORDS SUMMARY | 2024-12-07 11:21 | XMS_ITS | Encounter Summary ---
Author Organization [employer] Address [address] [facility] 7t [place] [address] Care Team Providers Care Tag And Label Cutter Name Role Phone Name, Hill HERNANDEZ Primary Care Provider [phone] Reason for Visit * Reason Onset Date Comments Pre Op 10/02/2023 Encounter Details Date Type Department Care Team ([facility] st Contact Info) Description 10/02/2023 Telephone [facility] MEDICINE [address] [place], [place] [phone] Name, MD Hill [address] [place] [address] Pre Op Social History Tobacco Use Types [...] No Surgeon's name: Tomás Hopkins Facility name: [facility] Surgeon's office number: [phone] Surgeon's office fax number: [phone] Contact name: Yohana documented in this encounter Plan of Treatment Upcoming Encounters Date Type Department Care Team (Late st Contact Info) Description 12/14/2024 10:00 AM EDT Office Visit [facility] MEDICINE [address] [place] [address] Name, MD Hill [address] [place] [address] documented as of this encounter Visit Diagnoses Not on filedocumented in this encounter Additional Health Concerns Assessment Noted Time PHQ-9 Depression Total Score: 12 05/08/ 024 1:00 PM EDT documented as of this encounter Care Teams Tag And Label Cutter Relationship Specialty Start Date End Date Name, MD Hill [address] [place] [address] PCP - General Family Medicine 03/15/15 [facility] 11/23/24 documented as of this encounter
--- OUTSIDE RECORDS SUMMARY | 2024-12-07 11:21 | XMS_ITS | Encounter Summary ---
Author Organization [employer] Address [address] [facility] 7t [place] [address] Care Team Providers Care Php Software Engineer Name Role Phone Name, Hill HERNANDEZ Primary Care Provider [phone] Reason for Visit * Reason Onset Date Comments requesting a call 09/04/2022 Encounter Details Date Type Department Care Team ([facility] st Contact Info) Description 09/04/2022 Telephone [facility] MEDICINE [address] [place] [address] [phone] Name, MD Hill [address] [place] [address] requesting a call Social History Tobacco Use [...] - 09/05/2022 2:46 PM EDT T/C to [phone] for below message through [employer] id - [id number] for below message, pt. States she is all set, she does not has any question right now. Pt. Advised to give call to [facility] if any questions or concerns. * Telephone Encounter - Hemalatha Rodriguez - 09/04/2022 2:39 PM EDT Tc from pt requesting a call. Pt did not go in to detail and is aware of upcoming appointment. Please contact pt at [phone] (Tongan speaker) documented in this encounter Plan of Treatment Upcoming Encounters Date Type Department Care Team (Late st Contact Info) Description 12/14/2024 10:00 AM EDT Office Visit [facility] MEDICINE [address] [place] [phone] Name, MD Hill [address] [place] [phone] documented as of this encounter Visit Diagnoses Not on filedocumented in this encounter Additional Health Concerns Assessment Noted Time PHQ-9 Depression Total Score: 19 023 1:35 PM EDT documented as of this encounter Care Teams Php Software Engineer Relationship Specialty Start Date End Date Name, MD Hill [address] [place] [phone] PCP - General Family Medicine 03/15/15 [facility] 11/23/24 documented as of this encounter
--- OUTSIDE RECORDS SUMMARY | 2024-12-07 11:21 | XMS_ITS | Clinical Summary ---
Author Organization [employer] Address [address] [place] [address] Care Team Providers Care Parer Name Role Phone Name, Hill HERNANDEZ Primary Care Provider [phone] Allergies No known active allergies Medications * This document contains information received from the source organization and may not represent a complete record from that organization. Lancets (OneTouch Delica Plus [id number]) misc TEST BLOOD SUGAR THREE TIMES DAILY [...] 11 4 Active Lancets (OneTouch Delica Plus [id number]) miscIndications: Diabetes mellitus type 2 in obese [...] complication, without long-term current use of insulin ([facility]),Essential hypertension TAKE 1 TABLET BY MOUTH TWICE [...] AFTER PROCEDURE APPOINTMENT 4 Active glucose blood (InventalatorTouch Ultra Test) test stripIndications :Type 2 diabetes mellitus with other specified complication, without long-term current use of insulin ([facility]) TEST BLOOD SUGAR THREE TIMES [...] supply due to travel). 90 tablet 5 12/24/19 Active Active Problems Problem Noted Date Diagnosed [...] (05/09/2023 1:17 PM EDT): During IBH Consult zAeb presenting with depressed mood, loss of interests/pleasure [...] Health Integration Plan Internal Follow up with [facility] Patient Self Plan Patient to utilize skills provided in intervention , Patient [facility] team as needed, Comply with [...] Health Integration Plan Internal Follow up with [facility] Patient Self Plan Patient to utilize skills provided in intervention , Patient to reach out to [facility] team as needed, Comply with [...] Encounters Date Type Department Care Team Description 12/01/2024 Telephone [facility] [address] [place] [phone] Hill Dickson MD 11/20/2024 Orders Only [facility] External Provider, [facility] 10/29/2024 8:40 AM EDT Office Visit [facility] [address] [address] Alejo Miranda MD Right shoulder pain, unspecified chronicity (Primary Dx) 10/29/2024 Travel 10/19/2024 Telephone [facility] [address] [place] [address] Alejo Miranda MD 10/16/2024 10:00 AM EDT [facility] [address] [address] Alejo Miranda MD Right shoulder pain, unspecified chronicity (Primary Dx) 10/05/2024 9:00 AM EDT [facility] [address] [address] Vaishali Gee MD COVID-19 (Primary Dx) 10/05/2024 Travel 10/01/2024 8:40 AM EDT [facility] [address] [address] Alejo Miranda MD COVID-19 (Primary Dx); Right knee pain, unspecified chronicity 10/01/2024 Telephone [facility] [address] [place] [address] Livia Tracy MA october recalls 10/01/2024 Travel 09/24/2024 Orders Only [facility] [address] [place] [address] Sharonda Stern NP Primary insomnia (Primary Dx) 09/23/[address] [address] Sharonda Stern NP 09/23/[address] [address] Teresa Samson RN 09/16/2024 Refill [facility] [address] [facility] [place] [address] Name, MD Hill 09/10/2024 Refill [facility] [address] [place] [address] Name, MD Hill Essential hypertension from Last 3 Months Immunizations Immunization Administration [...] Description 12/14/2024 10:00 AM EDT Office Visit [facility] [address] [place] [address] Name, MD Hill [address] [place] [address] Health Maintenance Due Date Last Done Comments [...] Procedure Name Priority Date/Time Associated Diagnosis Comments MR SHOULDER WO CONTRAST RIGHT Routine 12/01/2024 7:45 PM EDT XR KNEE 4+ VIEWS LEFT Routine 11/20/2024 12:[address] CERVICAL SPINE WO CONTRAST Routine 11/20/2024 10:[address] HEAD WO CONTRAST Routine 11/20/2024 1 0:26 AM EDT XR SHOULDER 2+ VIEWS RIGHT Routine 10/16/2024 [...] MOLECULAR) Routine 10/01/2024 8:54 AM EDT COVID-19 ALBUMIN, RANDOM URINE W/CREATININE Routine 06/11/2024 9:40 [...] without long-term current use of insulin (CMS/HCC) PROPHYLAXIS - ADULT Routine 05/27/2023 1 :00 [...] Recently Relevant to Health Maintenance Results * MR Shoulder w/o Contrast Right (12/01/2024 7:45 PM EDT) Anatomical Region Laterality Modality Upper Extremities, Shoulder Right Magn etic Resonance 12/01/2024 7:45 PM EDT Narrative 12/03/2024 8:19 AM EDT [address] [address] Magnetic Resonance Report Signed Patient: Azeb Kennedy MR#: [id number] 4 : 1945 Acct:[id number] Age/Sex: 79 / F ADM Date: 11/20/24 Loc: HO.MRI Attending Dr: Thiago Adames MD Ordering Physician: Thiago Adames MD Date of Service: 12/01/24 Procedure(s): MR shoulder RT wo con Accession Number(s): [id number] cc: Name,Hill HERNANDEZ; Thiago Adames MD Reason for Exam: M25.311 - Other instability, right shoulder EXAMINATION: MR SHOULDER WITHOUT CONTRAST, RIGHT CLINICAL INFORMATION: Instability COMPARISON: None available. TECHNIQUE: MRI of the shoulder without contrast was performed on a high-field scanner. FINDINGS: Motion artifact degrading images, limiting evaluation ROTATOR CUFF: Full thickness tear of the supraspinatus and majority of the infraspinatus tendons. There is tendon retraction to the level of the medial aspect of the humeral head. There may be some posterior infraspinatus fibers remaining. Teres minor is intact. Mild subscapularis tendinosis. No muscle atrophy or fatty infiltration. BICEPS: [Not visualized, consistent with full-thickness tear and distal retraction., CORACOACROMIAL ARCH: The undersurface of the acromion is curved with no subacromial spur. Moderate acromioclavicular arthritis. LABRUM/CAPSULE: [Labral degeneration. Posterior labral degenerative fraying/tearing. GLENOHUMERAL JOINT/MARROW: Mild subluxation of the humeral head with respect to glenoid. Mild glenohumeral arthritis. Small-moderate effusion. No axillary lymphadenopathy. MR/MR shoulder RT wo con IMPRESSION: * Full-thickness tear of the supraspinatus and majority of the infraspinatus tendon * Mild subscapularis tendinosis. * Long head biceps tendon full-thickness tear and distal retraction. * Posterior labral degenerative fraying/tearing. *Mild glenohumeral arthritis. Small-moderate effusion. Electronically signed by: Clint Lares MD 12/03/2024 08:16 AM EDT Dictated By: Clint Lares MD Signed By: <Electronically signed by Clint Lares MD in OV> 12/03/24815 DD/ 44 TD/TT: 12/01/242010 Retail Delivery Driver: LUCY Procedure Note Donotuseinterpreter, Image - 12/03/[address] [place] [address] Magnetic Resonance Report Signed Patient: Abraham Kennedy#: [id number] 4 : 8Acct:[id number] Age/Sex: 79 / FADM Date: 11/20/24 Loc: .MRI Attending Dr: Thiago Adames MD Ordering Physician: Thiago Adames MD Date of Service: 12/01/24 Procedure(s): MR shoulder RT wo con Accession Number(s): [id number] cc: Name,Hill HERNANDEZ; Thiago Adames MD Reason for Exam: M25.311 - Other instability, right shoulder EXAMINATION: MR SHOULDER WITHOUT CONTRAST, RIGHT CLINICAL INFORMATION: Instability COMPARISON: None available. TECHNIQUE: MRI of the shoulder without contrast was performed on a high-field scanner. FINDINGS: Motion artifact degrading images, limiting evaluation ROTATOR CUFF: Full thickness tear of the supraspinatus and majority of the infraspinatus tendons. There is tendon retraction to the level of the medial aspect of the humeral head. There may be some posterior infraspinatus fibers remaining. Teres minor is intact. Mild subscapularis tendinosis. No muscle atrophy or fatty infiltration. BICEPS: [Not visualized, consistent with full-thickness tear and distal retraction., CORACOACROMIAL ARCH: The undersurface of the acromion is curved with no subacromial spur. Moderate acromioclavicular arthritis. LABRUM/CAPSULE: [Labral degeneration. Posterior labral degenerative fraying/tearing. GLENOHUMERAL JOINT/MARROW: Mild subluxation of the humeral head with respect to glenoid. Mild glenohumeral arthritis. Small-moderate effusion. No axillary lymphadenopathy. MR/MR shoulder RT wo con IMPRESSION: * Full-thickness tear of the supraspinatus and majority of the infraspinatus tendon * Mild subscapularis tendinosis. * Long head biceps tendon full-thickness tear and distal retraction. * Posterior labral degenerative fraying/tearing. *Mild glenohumeral arthritis. Small-moderate effusion. Electronically signed by: Clint Lares MD 12/03/2024 08:16 AM EDT Dictated By: Clint Lares MD Signed By: <Electronically signed by Clint Lares MD in OV> 12/03/24 0816 DD/ 44 TD/TT: 12/01/242010 Retail Delivery Driver: LUCY [facility] External Provider IMG MRI PROCEDURES Final Result * XR Knee 4+ Views Left (11/20/2024 12:27 PM EDT) Anatomical Region Laterality Modality Lower Extremities, Knee Left Radiogra phic Imaging 11/20/2024 12:2 7 PM EDT Narrative 11/20/2024 12:35 PM EDT [address] [address] XRay Report Signed Patient: Azeb Kennedy MR#: [id number] 4 : 1945 Acct:[id number] Age/Sex: 79 / F ADM Date: 11/20/24 Loc: HO.ED Attending Dr: Ordering Physician: Radha Cagle NP Date of Service: 11/20/24 Procedure(s): XR knee LT 4V Accession Number(s): [id number] cc: Name,Hill HERNANDEZ; Radha Cagle NP Reason for Exam: fall, pain EXAMINATION: XR KNEE, LEFT CLINICAL INFORMATION: fall, pain COMPARISON: None available. TECHNIQUE: Four views of the left knee. FINDINGS: There is no joint effusion. There is mild narrowing of the medial joint space. There are tricompartmental marginal osteophytes. There is multifocal atherosclerotic calcifications in the arterial vessels. XR/XR knee LT 4V IMPRESSION: Mild osteoarthritis. Electronically signed by: Mark Anthony Jaimes MD 11/20/2024 12:32 PM EDT RP Dictated By: Mark Anthony Jaimes MD Signed By: <Electronically signed by Mark Anthony Jaimes MD in OV> 11/20/24 1232 DD/ TD/TT: 11/20/241226 Retail Delivery Driver: Procedure Note Donotuseinterpreter, Image - 11/20/[address] [address] XRay Report Signed Patient: Clifford KennedyR#: [id number] 4 : 1945cct:[id number] Age/Sex: 79 / FADM Date: 11/20/24 Loc: HO.ED Attending Dr: Ordering Physician: Radha Cagle NP Date of Service: 11/20/24 Procedure(s): XR knee LT 4V Accession Number(s): [id number] cc: NameHill MD; Radha Cagle NP Reason for Exam: fall, pain EXAMINATION: XR KNEE, LEFT CLINICAL INFORMATION: fall, pain COMPARISON: None available. TECHNIQUE: Four views of the left knee. FINDINGS: There is no joint effusion. There is mild narrowing of the medial joint space. There are tricompartmental marginal osteophytes. There is multifocal atherosclerotic calcifications in the arterial vessels. XR/XR knee LT 4V IMPRESSION: Mild osteoarthritis. Electronically signed by: Mark Anthony Jaimes MD 11/20/2024 12:32 PM EDT Dictated By: Mark Anthony Jaimes MD Signed By: <Electronically signed by Mark Anthony Jaimes MD in OV> 11/20/24 1232 DD/ 1227 TD/TT: 11/20/24 1227 Retail Delivery Driver: [facility] External Provider IMG XR PROCEDURES Final Result * CT Cervical Spine w/o Contrast (11/20/2024 10:26 AM EDT) Anatomical Region Laterality Modality Spine, C-spine Computed Tomogra phy 11/20/2024 10:2 6 AM EDT Narrative 11/20/2024 11:10 AM EDT [address] [address] [address] Scan Report Signed Patient: Azeb Kennedy MR#: [id number] 4 : 1945 Acct:[id number] Age/Sex: 79 / F ADM Date: 11/20/24 Loc: HO.ED Attending Dr: Ordering Physician: Radha Cagle NP Date of Service: 11/20/24 Procedure(s): CT cervical spine wo IV con Accession Number(s): [id number] cc: Yessi,Hill HERNANDEZ; Radha Cagle NP Report Number: [id number]: Total DLP = 367.00 mGy-cm Reason for Exam: fall with head strike EXAMINATION: CT CERVICAL SPINE WITHOUT CONTRAST CLINICAL INFORMATION: Fall with head strike. COMPARISON: None available. TECHNIQUE: Spiral CT imaging of the cervical spine performed in axial plane without contrast. Multiplanar reformatted images were constructed from the axial data set. This CT examination was performed using dose optimization techniques as appropriate, variously including the following: *Automated exposure control *Adjustment of mA and/or kV according to patient size (this includes techniques or standardized protocols for targeted exams where dose is matched to indication/reason for exam; i.e. extremities or head) *Use of iterative reconstruction technique FINDINGS: CORONAL ALIGNMENT: -There is a minimal right convex scoliosis, possibly positional. SAGITTAL ALIGNMENT: -Mild straightening of the normal lordosis. No traumatic subluxation. -There is a 2 mm degenerative appearing retrolisthesis of C5 on C6. C1-C2 AND CRANIOCERVICAL JUNCTION: -Intact and normally aligned. There are moderate degenerative changes in the anterior atlantoaxial joint. Mild posterior talus formation is present. VERTEBRAL BODIES AND FACETS: -There are no fractures, compression deformities, or suspicious bone lesions. There is no evidence of traumatic malalignment. There is normal facet alignment present, with multilevel hypertrophic degenerative facet changes most severe on the left at C2-3. Of note, the C7-T1 facets are fused bilaterally. DISCS: -Severe disc degeneration and narrowing present at C5-6. There is otherwise moderate disc degeneration at the remaining levels. CENTRAL CANAL: -No evidence of high-grade central canal narrowing or large disc herniation allowing for modality limitations. There is a probable moderate stenosis at C5-6 secondary to a disc osteophytic ridge complex. PREVERTEBRAL AND PARAVERTEBRAL SOFT TISSUES: -There is no prevertebral or paravertebral edema, swelling, or abnormal fluid collection. -The thyroid demonstrates a nodule in the left lobe measuring 1.2 x 1.0 cm. -No lymphadenopathy or mass within the neck. There is a retropharyngeal course of the left common carotid artery. LUNG APICES: -Clear without pneumothorax. CT/CT cervical spine wo IV con IMPRESSION: 1. No CT evidence of acute cervical spine fracture or injury. 2. Moderate to severe degenerative spondylosis most significant at C5-C6. Electronically signed by: Indra Carter MD 11/20/2024 11:07 AM EDT Dictated By: Indra Carter MD Signed By: <Electronically signed by Indra Carter MD in OV> 11/20/24 1107 DD/ 1026 TD/TT: 11/20/24 1054 Retail Delivery Driver: Procedure Note Donotuseinterpreter, Image - 11/20/[address] [place] [address] [address] Scan Report Signed Patient: Abraham Kennedy#: [id number] 4 : 8Acct:[id number] Age/Sex: 79 / FADM Date: 11/20/24 Loc: HO.ED Attending Dr: Ordering Physician: Radha Cagle NP Date of Service: 11/20/24 Procedure(s): CT cervical spine wo IV con Accession Number(s): [id number] cc: Hill Dickson MD; Radha Cagle NP Report Number: [id number]: Total DLP = 367.00 mGy-cm Reason for Exam: fall with head strike EXAMINATION: CT CERVICAL SPINE WITHOUT CONTRAST CLINICAL INFORMATION: Fall with head strike. COMPARISON: None available. TECHNIQUE: Spiral CT imaging of the cervical spine performed in axial plane without contrast. Multiplanar reformatted images were constructed from the axial data set. This CT examination was performed using dose optimization techniques as appropriate, variously including the following: *Automated exposure control *Adjustment of mA and/or kV according to patient size (this includes techniques or standardized protocols for targeted exams where dose is matched to indication/reason for exam; i.e. extremities or head) *Use of iterative reconstruction technique FINDINGS: CORONAL ALIGNMENT: -There is a minimal right convex scoliosis, possibly positional. SAGITTAL ALIGNMENT: -Mild straightening of the normal lordosis. No traumatic subluxation. -There is a 2 mm degenerative appearing retrolisthesis of C5 on C6. C1-C2 AND CRANIOCERVICAL JUNCTION: -Intact and normally aligned. There are moderate degenerative changes in the anterior atlantoaxial joint. Mild posterior talus formation is present. VERTEBRAL BODIES AND FACETS: -There are no fractures, compression deformities, or suspicious bone lesions. There is no evidence of traumatic malalignment. There is normal facet alignment present, with multilevel hypertrophic degenerative facet changes most severe on the left at C2-3. Of note, the C7-T1 facets are fused bilaterally. DISCS: -Severe disc degeneration and narrowing present at C5-6. There is otherwise moderate disc degeneration at the remaining levels. CENTRAL CANAL: -No evidence of high-grade central canal narrowing or large disc herniation allowing for modality limitations. There is a probable moderate stenosis at C5-6 secondary to a disc osteophytic ridge complex. PREVERTEBRAL AND PARAVERTEBRAL SOFT TISSUES: -There is no prevertebral or paravertebral edema, swelling, or abnormal fluid collection. -The thyroid demonstrates a nodule in the left lobe measuring 1.2 x 1.0 cm. -No lymphadenopathy or mass within the neck. There is a retropharyngeal course of the left common carotid artery. LUNG APICES: -Clear without pneumothorax. CT/CT cervical spine wo IV con IMPRESSION: 1. No CT evidence of acute cervical spine fracture or injury. 2. Moderate to severe degenerative spondylosis most significant at C5-C6. Electronically signed by: Indra Carter MD 11/20/2024 11:07 AM EDT Dictated By: Indra Carter MD Signed By: <Electronically signed by Indra Carter MD in OV> 11/20/24 1107 DD/ 1026 TD/TT: 11/20/24 1054 Retail Delivery Driver: [facility] External Provider IMG CT PROCEDURES Final Result * CT Head w/o Contrast (11/20/2024 10:26 AM EDT) Anatomical Region Laterality Modality Head, Neck Computed Tomogra phy 11/20/2024 10:2 6 AM EDT Narrative 11/20/2024 11:05 AM EDT [address] [address] [address] Scan Report Signed Patient: Azeb Kennedy MR#: [id number] 4 : 1945 Acct:[id number] Age/Sex: 79 / F ADM Date: 11/20/24 Loc: HO.ED Attending Dr: Ordering Physician: Radha Cagle NP Date of Service: 11/20/24 Procedure(s): CT head/brain wo IV con Accession Number(s): [id number] cc: Name,Hill HERNANDEZ; Radha Cagle NP Report Number: [id number]: Total DLP = 760.00 mGy-cm Reason for Exam: fall with head strike EXAMINATION: CT HEAD WITHOUT CONTRAST CLINICAL INFORMATION: fall with head strike COMPARISON: February 15, 2016. TECHNIQUE: Contiguous axial imaging was performed from the skull base to vertex without intravenous administration of contrast. This CT examination was performed using dose optimization techniques as appropriate, variously including the following: *Automated exposure control *Adjustment of mA and/or kV according to patient size (this includes techniques or standardized protocols for targeted exams where dose is matched to indication/reason for exam; i.e. extremities or head) *Use of iterative reconstruction technique DLP: 752.77 mGy-cm FINDINGS: No acute cortical disruption in the bony calvarium. No acute intracranial hemorrhage, mass effect, midline shift, hydrocephalus or herniation. Bilateral multifocal patchy and confluent deep periventricular white matter hypodensities involving centrum semiovale and dominguez radiata. 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 Lockhart-white matter differentiation is normal. Posterior cranial fossa contents demonstrated no gross hemorrhage or mass effect. Normal position of the cerebellar tonsils. Sellar/suprasellar region demonstrated no gross masses. Calcified plaques in the cavernous supracavernous segments both ICAs and V4 segment right vertebral artery. Mucosal thickening without air-fluid levels in the paranasal sinuses. Retention cyst right saphenous sinus. Tympanic cavities and mastoid cells are aerated. Unerupted molar, left maxillary. CT/CT head/brain wo IV con IMPRESSION: No acute fracture, bony calvarium. No acute intracranial hemorrhage. Small vessel occlusive disease. Electronically signed by: Phil Melissa MD 11/20/2024 11:03 AM EDT RP Dictated By: Phil Lawler MD Signed By: <Electronically signed by Phil Cat MD in OV> 11/20/24 1103 DD/ 1026 TD/TT: 11/20/24 1054 Retail Delivery Driver: Procedure Note Donotuseinterpreter, Image - 11/20/[address] [address] [address] Scan Report Signed Patient: Abraham Kennedy#: [id number] 4 : 8Acct:[id number] Age/Sex: 79 / FADM Date: 11/20/24 Loc: HO.ED Attending Dr: Ordering Physician: Radha Cagle NP Date of Service: 11/20/24 Procedure(s): CT head/brain wo IV con Accession Number(s): [id number] cc: Name,Hill HERNANDEZ; Radha Cagle NP Report Number: [id number]: Total DLP = 760.00 mGy-cm Reason for Exam: fall with head strike EXAMINATION: CT HEAD WITHOUT CONTRAST CLINICAL INFORMATION: fall with head strike COMPARISON: February 15, 2016. TECHNIQUE: Contiguous axial imaging was performed from the skull base to vertex without intravenous administration of contrast. This CT examination was performed using dose optimization techniques as appropriate, variously including the following: *Automated exposure control *Adjustment of mA and/or kV according to patient size (this includes techniques or standardized protocols for targeted exams where dose is matched to indication/reason for exam; i.e. extremities or head) *Use of iterative reconstruction technique DLP: 752.77 mGy-cm FINDINGS: No acute cortical disruption in the bony calvarium. No acute intracranial hemorrhage, mass effect, midline shift, hydrocephalus or herniation. Bilateral multifocal patchy and confluent deep periventricular white matter hypodensities involving centrum semiovale and dominguez radiata. 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 Lockhart-white matter differentiation is normal. Posterior cranial fossa contents demonstrated no gross hemorrhage or mass effect. Normal position of the cerebellar tonsils. Sellar/suprasellar region demonstrated no gross masses. Calcified plaques in the cavernous supracavernous segments both ICAs and V4 segment right vertebral artery. Mucosal thickening without air-fluid levels in the paranasal sinuses. Retention cyst right saphenous sinus. Tympanic cavities and mastoid cells are aerated. Unerupted molar, left maxillary. CT/CT head/brain wo IV con IMPRESSION: No acute fracture, bony calvarium. No acute intracranial hemorrhage. Small vessel occlusive disease. Electronically signed by: Phil Melissa MD 11/20/2024 11:03 AM EDT Dictated By: Phil Lawler MD Signed By: <Electronically signed by Phil Cat MDin OV> 11/20/24 1103 DD/ 1026 TD/TT: 11/20/24 1054 Retail Delivery Driver: [facility] External Provider IMG CT PROCEDURES Final Result * XR Shoulder 2+ Views Right (10/16/2024 10:50 AM EDT) Anatomical Region Laterality Modality Upper Extremities, Shoulder Right Radi ographic Imaging 10/16/2024 10:5 0 AM EDT Narrative 10/16/2024 11:41 AM EDT [address] [address] XRay Report Signed Patient: Azeb Kennedy MR#: [id number] 4 : 1945 Acct:[id number] Age/Sex: 79 / F ADM Date: 10/16/24 Loc: HO.HHCX Attending Dr: Alejo Miranda MD Ordering Physician: Alejo Miranda MD Date of Service: 10/16/24 Procedure(s): XR shoulder RT min 2V Accession Number(s): [id number] cc: Alejo Miranda MD EXAMINATION: XR SHOULDER, [...] 10/16/24 1139 DD/ 1050 TD/TT: 10/16/24 1100 Retail Delivery Driver: Procedure Note Donotuseinterpreter, Image - 10/16/2024 [place] [address] XRay Report Signed Patient: Abraham Kennedy#: [id number] 4 : 8Acct:[id number] Age/Sex: 79 / FADM Date: 10/16/24 Loc: HO.HHCX Attending Dr: Alejo Miranda MD Ordering Physician: Alejo Miranda MD Date of Service: 10/16/24 Procedure(s): XR shoulder RT min 2V Accession Number(s): [id number] cc: Alejo Miranda MD EXAMINATION: XR SHOULDER, [...] 10/16/24 1139 DD/ 1050 TD/TT: 10/16/24 1100 Retail Delivery Driver: Alejo Miranda MD IMG XR PROCEDURES Final Result * XR Knee 3 Views Right (10/16/2024 10:12 AM EDT) Anatomical Region Laterality Modality Lower Extremities, Knee Right Radiogra phic Imaging 10/16/2024 10:1 2 AM EDT Narrative 10/16/2024 11:47 AM EDT [address] [address] XRay Report Signed Patient: Azeb Kennedy MR#: [id number] 4 : 1945 Acct:[id number] Age/Sex: 79 / F ADM Date: 10/16/24 Loc: .HHCX Attending Dr: Alejo Miranda MD Ordering Physician: Alejo Miranda MD Date of Service: 10/16/24 Procedure(s): XR knee RT 3V Accession Number(s): [id number] cc: Alejo Miranda MD EXAMINATION: XR KNEE, [...] 10/16/24 1144 DD/ 1012 TD/TT: 10/16/24 1100 Retail Delivery Driver: Procedure Note Donotuseinterpreter, Image - 10/16/2024 [facility] [employer] [facility] [address] [place] [address] XRay Report Signed Patient: Abraham Kennedy#: [id number] 4 : 8Acct:[id number] Age/Sex: 79 / FADM Date: 10/16/24 [facility]: Alejo Miranda MD Ordering Physician: Alejo Miranda MD Date of Service: 10/16/24 Procedure(s): XR knee RT 3V Accession Number(s): [id number] cc: Alejo Miranda MD EXAMINATION: XR KNEE, [...] 10/16/24 1144 DD/ 1012 TD/TT: 10/16/24 1100 Retail Delivery Driver: us Alejo Miranda MD IMG XR PROCEDURES [...] AM EDT) Influenza B Negative Negative, Indeterminate [facility] Swab 10/01/2024 8:54 AM EDT Alejo Miranda MD POINT OF CARE TEST ENTER/EDIT OR DERABLES Final Result Performing Organization Address [facility] Co de Phone Number [facility] [address] [place] [phone] * Influenza A (ID NOW Rapid Molecular) (10/01/2024 8:54 AM EDT) Influenza A Negative Negative, Indeterminate [facility] Swab 10/01/2024 8:54 AM EDT Alejo Miranda MD POINT OF CARE TEST ENTER/EDIT OR DERABLES Final Result Performing Organization Address [facility] Co de Phone Number [facility] [address] [place] [phone] * Albumin, Random Urine W/Creatinine (06/11/2024 9:40 AM EDT) Creatinine, Urine 93.85 mg/dL [facility] Microalbumin Urine 25.0 mg/L [facility] Microalbum Creatinine Ratio Ur 26.6 <30 ug/mg cr [facility] Comment:Albumin/Creatinine R atio Reference Ranges: Normal: < 30 ug/mg creatinine Microalbuminuria: 30 - 300 ug/mg creatinineClinical Albuminuria: > 300 ug/mg creatinine Urine (Urine, Random) 06/11/2024 9:40 AM EDT 06/11/2024 11:25 AM EDT Hill Dickson MD LAB URINE ORDERABLES Final Resul t Performing Organization Address City/[facility] de Phone Number [facility] [address] [place] [address] [phone] * (ABNORMAL) Lipid Panel, Standard (06/11/2024 9:40 AM EDT) Triglycerides 144 <150 mg/dL [facility] Comment:Desirable Triglyceri de: less than 150 mg/dLBorderline High Triglyceride 150-199 mg/dLHigh Triglyceride: 200-499 mg/dLVery High Triglyceride: greater than or equal to 5OO mg/dL Cholesterol 195 <200 mg/dL [facility] Comment:Desirable Cholestero l: less than 200 mg/dLBorderline High Cholesterol: 200-239 mg/dLHigh Cholesterol: greater than 239 mg/dL LDL Cholesterol Calculated 115(H) <100 mg/dL [facility] Comment:Desirable LDL: less than 100 mg/dLNear Optimal/Above Optimal LDL: 110- 129 mg/dLBorderline High LDL: 130-159 mg/dLHigh LDL: 160-189 mg/dLVery High LDL: greater than or equal to 190 mg/dL HDL Cholesterol 52 >40 mg/dL [facility] Comment:Desirable HDL: great er than 40 mg/dL Note: This HDL assay may give artificially low results in patients with liver disease. Blood Venous blood specimen / Unknown 06/11/2024 9:40 AM EDT 06/11/2024 11:17 AM EDT us Hill Dickson MD LAB BLOOD ORDERABLES Final Resul t Performing Organization Address [facility] Co de Phone Number [facility] [address] [place] [address] [phone] * (ABNORMAL) POCT HGB A1C (03/17/2024 2:16 PM EST) Hemoglobin A1C 6.3(A) 4.0 - 6.0 % QC Media Lot # [id number] Lot# Expiration Date [id number] Blood 03/17/2024 2:16 PM EST us Hill [...] PM EST Recommended 10 year follow up [facility] Provider HEALTH MAINTENANCE Final Result * Hepatitis C Antibody (09/15/2012) Hepatitis C Antibody Nonreactive Blood us Hill Dickson MD HEALTH MAINTENANCE Final Result from Last 3 Months or Most Recently Relevant to Health Maintenance Insurance [facility] HALFWAY OPTIONS (HMO D-SNP) DENTAL - [facility] [address] [place] [phone] Care Teams Parer Relationship Specialty Start Date End Date Name, MD Hill [address] [place] [phone] PCP - General Family Medicine 03/15/15 [facility] 11/23/24
--- OUTSIDE RECORDS SUMMARY | 2024-12-07 11:21 | XMS_ITS | Encounter Summary ---
Author Organization [employer] Address [address] [facility] 7t [place] [address] Care Team Providers Care Key Holder Name Role Phone Name, Hill HERNANDEZ Primary Care Provider [phone] Encounter Details Date Type Department Care Team ([facility] Contact Info) Description 03/26/2022 Orders Only [facility] [address] [place] [address] Jane Oneill LPN Social History Tobacco Use [...] Description 12/14/2024 10:00 AM EDT Office Visit [facility] [address] [place] [phone] Name, MD Hill [address] [place] [address] documented as of this encounter Visit Diagnoses Not on filedocumented in this encounter Care Teams Key Holder Relationship Specialty Start Date End Date Name, MD Hill [address] [place] [address] PCP - General Family Medicine 03/15/15 [facility] 11/23/24 documented as of this encounter
--- OUTSIDE RECORDS SUMMARY | 2024-12-07 11:21 | XMS_ITS | Clinical Summary ---
Author Organization [address] [place] [address] Address [address] [place] [address] Phone Care Team Providers Care Professor Of Religion Name Role Phone Gina Fonseca MD Primary [...] uncontrolled HTN (hypertension) 07/08/2012 Insomnia 07/08/2012 Immunizations Immunization Administration Dates Next Due PPD Test 05/19/2014 [...] right leg BREAST REDUCTION 2009 Bilateral PROCEDURE: GA BREAST REDUCTION Medical History Medical History Date Comments Unspecified essential hypertension DX:Unspecified essential hypertension DM type 2 (diabetes mellitus , type 2) ([facility] V24, [facility] V28) 12/24/2012 DX:DM type 2 (diabetes hailee itus, type 2) ([facility]) Family History Medical History Relation Name Comments Cataracts Father Glaucoma Father Breast cancer Mother 75 Breast cancer Sister 1 70 Blindness Neg Hx Macular degeneration Neg Hx Strabismus Neg Hx Relation Name Status Comments Daughter Alive HTN Father [place] and [place] Mother 75 Breast cancer Sister [...] PM EST Office Visit Orthopedic Surgery - [place] [phone] [address] Vicente Pearce, DPM [address] [phone] Health Maintenance Due Date Last Done Comments [...] 2 diabetes mellitus without complications (CMS/HCC V24, CMS/[facility] V28) HEMOGLOBIN A1C Routine 06/04/2024 7:34 AM [...] Hemoglobin A1c (06/04/2024 7:34 AM EDT) Pathologist [facility] Hemoglobin A1C 6.6(H) <6.5 % LAB CHEMISTRY [...] Result [facility] [address] [place] [address], * (ABNORMAL) Comprehensive metabolic panel (06/04/2024 7:34 AM EDT) [facility] Sodium 139 133 - 145 mmol/L LAB CHEMISTRY METHOD 06/04/2024 10:53 AM [facility] Potassium 4.6 3.5 - 5.5 mmol/L LAB CHEMISTRY METHOD 06/04/2024 10:53 AM [facility] Chloride 105 96 - 110 mmol/L LAB CHEMISTRY METHOD 06/04/2024 10:53 AM [facility] CO2 30 21 - 32 mmol/L LAB CHEMISTRY METHOD 06/04/2024 10:53 AM [facility] Anion Gap 4 3 - 11 LAB CHEMISTRY METHOD 06/04/2024 10:53 AM [facility] Glucose 105(H) 70 - 100 mg/dL LAB CHEMISTRY METHOD 06/04/2024 10:53 AM [facility] BUN 18 5 - 25 mg/dL LAB CHEMISTRY METHOD 06/04/2024 10:53 AM [facility] Creatinine 0.74 0.50 - 1.10 mg/dL LAB CHEMISTRY METHOD 06/04/2024 10:53 AM [facility] eGFR 83 >=60 mL/min/1. 73m2 LAB CHEMISTRY METHOD 06/04/2024 10:53 AM [facility] Comment:Calculation based on the Chronic Kidney Disease Epidemiology Collaboration (CKD-EPI) equation refit without adjustment for race. BUN/Creatinine Ratio 24.3 LAB CHEMISTRY METHOD 06/04/2024 10:53 AM [facility] Calcium 9.2 8.5 - 10.5 mg/dL LAB CHEMISTRY METHOD 06/04/2024 10:53 AM [facility] AST (SGOT) 37 10 - 42 unit/L LAB CHEMISTRY METHOD 06/04/2024 10:53 AM [facility] ALT (SGPT) 38 10 - 60 unit/L LAB CHEMISTRY METHOD 06/04/2024 10:53 AM [facility] Alkaline Phosphatase 112 42 - 121 unit/L LAB CHEMISTRY METHOD 06/04/2024 10:53 AM [facility] Total Protein 7.3 6.0 - 8.0 g/dL LAB CHEMISTRY METHOD 06/04/2024 10:53 AM [facility] Albumin 3.7 3.2 - 5.0 g/dL LAB CHEMISTRY METHOD 06/04/2024 10:53 AM [facility] Total Bilirubin 0.4 0.0 - 1.4 mg/dL LAB CHEMISTRY METHOD 06/04/2024 10:53 AM [facility] Blood Venous blood specimen / Unknown Venipuncture / Unknown 06/04/2024 7:34 AM EDT 06/04/2024 9:59 AM EDT Behzad Conway MD LAB BLOOD ORDERABLES Final Result [facility] [address] [place] [address], * SCR MAMMO BI INCL CAD (08/11/2018 [...] C Screening (09/15/2012) Hepatitis C Screening abstracted [facility] Provider HEALTH MAINTENANCE Final Result from Last 3 Months or Most Recently Relevant to Health Maintenance Insurance [facility] MEDICARE Member Subscriber Plan / Payer (Ef fective 2023-Present) Name:Azeb Kennedy Relation to Subscriber:Self Name:Azeb Kennedy Payer ID:[id number] Group ID:[id number] Type:Not on file Address: [place] [address] [address] [phone] Care Teams Professor Of Religion Relationship Specialty Start Date End Date Gina Fonseca MD [address] [place], [place] PCP - General Internal Medicine 10/16/21
--- OUTSIDE RECORDS SUMMARY | 2024-12-07 11:21 | XMS_ITS | Clinical Summary ---
Author Organization [facility] Address [address] [facility] [address] [place] [address] Phone Care Team Providers Care Feed Project Engineer Name Role Phone Name, Hill HERNANDEZ Primary Care Provider [phone] Allergies No known active allergies Medications metformin [...] topic Medical Devices Not on file Insurance [facility] MEDICARE REPLACEMENT Member Subscriber Plan / Payer (Ef fective 2019-Present) Name:Azeb Kennedy Relation to Subscriber:Self Name:Azeb Kennedy Payer ID:[id number] (NAIC) Group ID:Not on file Type:Medicare Address: [place] [id number] MEDICARE REPLACEMENT [address] [place] [id number] [facility] MEDICARE REPLACEMENT [place] [address] [place] [address] MEDICARE REPLACEMENT [facility] MEDICARE REPLACEMENT MEDICARE REPLAC[place] [address] MEDICARE REPLACEMENT [place] [id number] Care Teams Feed Project Engineer Relationship Specialty Start Date End Date Name, MD Hill [address] [place] [phone] PCP - General Geriatric Psychiatry 01/07/20 Additional Source Comments The information contained in this document represents components of the legal health record. It is not the complete legal health record.[facility]
--- OUTSIDE RECORDS SUMMARY | 2024-12-07 11:21 | XMS_ITS | Encounter Summary ---
Author Organization [employer] Address [address] [facility] 7t [place] [address] Care Team Providers Care Services Executive Name Role Phone Name, Hill HERNANDEZ Primary Care Provider [phone] Encounter Details Date Type Department Care Team (Latest Contact Info) Description 07/26/2021 Abstract [facility] CONVERSIONS Dental, Provider, DDS Social [...] 12/14/2024 10:00 AM EDT Office Visit [facility] [address] [place] [address] Name, MD Hill [address] [place] [address] documented as of this encounter Visit Diagnoses Not on filedocumented in this encounter Care Teams Services Executive Relationship Specialty Start Date End Date Name, MD Hill [address] [place] [address] PCP - General Family Medicine 03/15/15 [facility] 11/23/24 documented as of this encounter
--- OUTSIDE RECORDS SUMMARY | 2024-12-07 11:21 | XMS_ITS | Encounter Summary ---
Author Organization [email or web address] Address [address] [facility] 7t [place] [address] Care Team Providers Care Power Crane Operator Name Role Phone Name, Hill HERNANDEZ Primary Care Provider [phone] Encounter Details Date Type Department Care Team (Latest Contact Info) Description 04/21/2019 Abstract [facility] CONVERSIONS Dental, Provider, DDS Social History [...] Description 12/14/2024 10:00 AM EDT Office Visit [facility] [address] [place] [address] Name, MD Hill [address] [place] [address] documented as of this encounter Visit Diagnoses Not on filedocumented in this encounter Care Teams Power Crane Operator Relationship Specialty Start Date End Date Name, MD Hill [address] [place] [address] PCP - General Family Medicine 03/15/15 [facility] 11/23/24 documented as of this encounter
--- OUTSIDE RECORDS SUMMARY | 2024-12-07 11:21 | XMS_ITS | Encounter Summary ---
Author Organization [employer] Address 75 [facility] 7t [place] [address] Care Team Providers Care Residential Manager Name Role Phone Name, Hill HERNANDEZ Primary Care Provider [phone] Reason for Visit * Reason Comments Med Refill Encounter Details Date Type Department Care Team ([facility] st Contact Info) Description 07/02/2024 Refill [facility] [address] [place], [place] [phone] Name, MD Hill [address] [place] [address] Social History Tobacco Use Types Packs/Day Years [...] Description 12/14/2024 10:00 AM EDT Office Visit [facility] [address] [place] [address] Name, MD Hill [address] [place] [address] documented as of this encounter Visit Diagnoses Not on filedocumented in this encounter Additional Health Concerns Assessment Noted Time PHQ-9 Depression Total Score: 4 03/17/19 25 2:14 PM EST documented as of this encounter Care Teams Residential Manager Relationship Specialty Start Date End Date NameHill MD [address] [place] [address] PCP - General Family Medicine 03/15/15 [facility] 11/23/24 documented as of this encounter
--- OUTSIDE RECORDS SUMMARY | 2024-12-07 11:21 | XMS_ITS | Encounter Summary ---
Author Organization [facility] Address [address] [place] [address] Care Team Providers Care Iuss Acoustic Analyst Name Role Phone Gina Fonseca MD Primary Care Provider [phone] Encounter Details Date Type Department Care Team (Late Contact Info) Description 06/04/2024 Lab Requisition [facility] - Main Lab [address] [facility] [employer] [place] [address] Behzad Conway MD [address] [place] [phone] Anemia, unspecified; Type 2 diabetes mellitus without [...] PM EST Office Visit Orth[facility] Surgery - [place] [address] [phone] Vicente Pearce DPM [address] [address] documented as of this encounter Procedures Procedure Name Priority Date/Time Associated Diagnosis Comments COMPLETE BLOOD COUNT Routine 06/04/2024 7:34 AM EDT Anemia, unspecified Type 2 diabetes mellitus without complications (CMS/HCC V24, CMS/HCC V28) HEMOGLOBIN A1C Routine 06/04/2024 7:34 AM EDT Anemia, unspecified Type 2 diabetes mellitus without complications ([facility] V24, [facility] V28) COMPREHENSIVE METABOLIC PANEL Routine 06/04/2024 7:34 AM EDT Anemia, unspecified Type 2 diabetes mellitus without complications ([facility] V24, [facility] V28) documented in this encounter Results * (ABNORMAL) Hemoglobin A1c (06/04/2024 7:34 AM EDT) Pathologist [facility] Hemoglobin A1C 6.6(H) <6.5 % LAB CHEMISTRY METHOD 06/04/2024 12:34 PM EDT [facility] Mean Bld Glu Estim. 143 mg/dL LAB CHEMISTRY METHOD 06/04/2024 12:34 PM EDT [facility] Blood Venous blood specimen / Unknown Venipuncture / Unknown 06/04/2024 7:34 AM EDT 06/04/2024 9:59 AM EDT Behzad Conway MD LAB BLOOD ORDERABLES Final Result [facility] [address] [place] [address], * (ABNORMAL) Comprehensive metabolic panel (06/04/2024 7:34 AM EDT) [facility] Sodium 139 133 - 145 mmol/L LAB CHEMISTRY METHOD 06/04/2024 10:53 AM EDT [facility] Potassium 4.6 3.5 - 5.5 mmol/L LAB CHEMISTRY METHOD 06/04/2024 10:53 AM EDT [facility] Chloride 105 96 - 110 mmol/L LAB CHEMISTRY METHOD 06/04/2024 10:53 AM EDT [facility] CO2 30 21 - 32 mmol/L LAB CHEMISTRY METHOD 06/04/2024 10:53 AM [facility] Anion Gap 4 3 - 11 LAB CHEMISTRY METHOD 06/04/2024 10:53 AM [facility] Glucose 105(H) 70 - 100 mg/dL LAB CHEMISTRY METHOD 06/04/2024 10:53 AM [facility] BUN 18 5 - 25 mg/dL LAB CHEMISTRY METHOD 06/04/2024 10:53 AM [facility] Creatinine 0.74 0.50 - 1.10 mg/dL LAB CHEMISTRY METHOD 06/04/2024 10:53 AM [facility] eGFR 83 >=60 mL/min/1. 73m2 LAB CHEMISTRY METHOD 06/04/2024 10:53 AM [facility] Comment:Calculation based on the Chronic Kidney Disease Epidemiology Collaboration (CKD-EPI) equation refit without adjustment for race. BUN/Creatinine Ratio 24.3 LAB CHEMISTRY METHOD 06/04/2024 10:53 AM [facility] Calcium 9.2 8.5 - 10.5 mg/dL LAB CHEMISTRY METHOD 06/04/2024 10:53 AM [facility] AST (SGOT) 37 10 - 42 unit/L LAB CHEMISTRY METHOD 06/04/2024 10:53 AM [facility] ALT (SGPT) 38 10 - 60 unit/L LAB CHEMISTRY METHOD 06/04/2024 10:53 AM [facility] Alkaline Phosphatase 112 42 - 121 unit/L LAB CHEMISTRY METHOD 06/04/2024 10:53 AM [facility] Total Protein 7.3 6.0 - 8.0 g/dL LAB CHEMISTRY METHOD 06/04/2024 10:53 AM [facility] Albumin 3.7 3.2 - 5.0 g/dL LAB CHEMISTRY METHOD 06/04/2024 10:53 AM [facility] Total Bilirubin 0.4 0.0 - 1.4 mg/dL LAB CHEMISTRY METHOD 06/04/2024 10:53 AM EDT [facility] Blood Venous blood specimen / Unknown Venipuncture / Unknown 06/04/2024 7:34 AM EDT 06/04/2024 9:59 AM EDT us Behzad Conway MD LAB BLOOD ORDERABLES Final Result [facility] [address] [place] [address], * (ABNORMAL) Complete blood count (06/04/2024 7:34 AM EDT) WBC 5.6 4.8 - 10.8 K/mcL LAB HEMETOLOGY METHOD 06/04/2024 10:31 AM [facility] RBC 4.10 3.80 - 4.80 M/mcL LAB HEMETOLOGY METHOD 06/04/2024 10:31 AM [facility] Hemoglobin 12.7 11.5 - 16.0 g/dL LAB HEMETOLOGY METHOD 06/04/2024 10:31 AM [facility] Hematocrit 39.9 35.0 - 47.0 % LAB HEMETOLOGY METHOD 06/04/2024 10:31 AM [facility] MCV 97.8 79.0 - 98.0 FL LAB HEMETOLOGY METHOD 06/04/2024 10:31 AM [facility] MCH 31.1 27.0 - 32.0 pcg LAB HEMETOLOGY METHOD 06/04/2024 10:31 AM [facility] MCHC 31.8(L) 32.0 - 37.0 g/dL LAB HEMETOLOGY METHOD 06/04/2024 10:31 AM [facility] RDW 13.2 11.0 - 15.0 % LAB HEMETOLOGY METHOD 06/04/2024 10:31 AM EDT [facility] Platelets 200 130 - 400 K/mcL LAB HEMETOLOGY METHOD 06/04/2024 10:31 AM EDT [facility] MPV 11.4(H) 7.0 - 11.0 FL LAB HEMETOLOGY METHOD 06/04/2024 10:31 AM EDT [facility] NRBC 0.0 <1.0 % LAB HEMETOLOGY METHOD 06/04/2024 10:31 AM EDT [facility] NRBC Absolute 0.00 <0.10 K/mcL LAB HEMETOLOGY METHOD 06/04/2024 10:31 AM EDT [facility] Blood Venous blood specimen / Unknown Venipuncture / Unknown 06/04/2024 7:34 AM EDT 06/04/2024 9:59 AM EDT us Behzad Conway MD LAB BLOOD ORDERABLES Final Result [facility] [address] [place] [address], documented in this encounter Visit Diagnoses Diagnosis Anemia, unspecified Type 2 diabetes mellitus without complications (CMS/HCC V24, CMS/HCC V28) documented in this encounter Care Teams Iuss Acoustic Analyst Relationship Specialty Start Date End Date Gina Fonseca MD [address] [place] [address] PCP - General Internal Medicine 10/16/21 documented as of this encounter
--- OUTSIDE RECORDS SUMMARY | 2024-12-07 11:21 | XMS_ITS | Patient Health Record ---
Author Organization [facility] Address [address] [place] [address] Care Team Providers Care Development Advisor Name Role Phone Name Hill HERNANDEZ Primary Care Provider James Kaur [phone] Allergies No Known Allergies Reason For Referral No Information Medications Medication SIG (Take, Route, Frequency, Duration) Notes Start Date End Date Status Amitriptyline HCl 25 MG 1 tablet at bedt juan josé Orally Once a day Active Tylenol 8 Hour Arthritis Pain 650 MG 2 tablets as needed Orally every 8 hrs Active Omeprazole 20 MG TAKE 1 CAPSULE BY [facility] DAILY IN THE MORNING Oral; Duration: 30 Active Pravastatin Sodium 10 MG 1 [...] Problem Status W/U Status Risk Notes Problem Colon cancer screening (045253347) Colon cancer screening (Z12.11) Active confirmed Problem Gastroesophageal reflux disease without esophagitis (070283000) Gastroesophageal reflux disease without esophagitis (K21.9) Active confirmed Problem Gastroesophageal reflux disease (282274355) Gastroesophageal reflux disease, esophagitis presence not specified (K21.9) Active confirmed Problem Constipation (63092714) Constipation, unspecified constipation type (K59.00) Active confirmed Encounters Encounter Location Date Provider Diagnosis [facility] [address] [place] [phone] 05/21/2024 James Easton [facility] [address] [place] [address] [place] [address] 06/09/2024 James Easton [facility] [address] [place] [phone] 11/02/2024 James Easton Plan Of Treatment Future Test Test Name Order Date COLONOSCOPY 12/02/2013 Next Appt Details Provider Name:James Easton , 03/16/2025 10:50:00 AM, [address], [address], [place], [address], Insurance Providers Payer Name Payer Address Payer Phone Subscriber Number Group Number Insured Name Patient Relationship to Insured Coverage Start Date Coverage End Date [facility] [address] [place] [address] [id number] RAFFAELE CHUNG Self - patient is the insured Medical (General) History Medical History History ICD Code Tubular adenomas removed in 2004. She had negative followup colonoscopies in 06/2008 and in 02/2014. Diverticulosis GERD--EGD in 2004-small HH--no sig. esop hagitis nor Mccall's Denies OR,CVA,Lung disease,renal disease NIDDM Surgical History Surgery Date(Month/Year) Cholecystectomy Tubal ligation Hysterectomy with ? removal of one ovary Breast reduction Left foot 08/2021
--- OUTSIDE RECORDS SUMMARY | 2024-12-07 11:21 | XMS_ITS | Encounter Summary ---
Author Organization [employer] Address [address] [facility] 7t [place] [address] Care Team Providers Care Medical Device Sales Consultant Name Role Phone Name, Hill HERNANDEZ Primary Care Provider [phone] Reason for Visit * Reason Onset Date Comments triage 07/19/2022 Encounter Details Date Type Department Care Team ([facility] st Contact Info) Description 07/19/2022 Telephone [facility] MEDICINE [address] [place], [place] [phone] Name, MD Hill [address] [place] [address] triage Social History Tobacco Use Types Packs/Day [...] worse The caller accepted this outcome speaks south african documented in this encounter Plan of Treatment Upcoming Encounters Date Type Department Care Team ([facility] st Contact Info) Description 12/14/2024 10:00 AM EDT Office Visit [facility] MEDICINE [address] [place] [address] Name, MD Hill [address] [place] [address] documented as of this encounter Visit Diagnoses Not on filedocumented in this encounter Additional Health Concerns Assessment Noted Time PHQ-9 Depression Total Score: 19 023 1:35 PM EDT documented as of this encounter Care Teams Medical Device Sales Consultant Relationship Specialty Start Date End Date Name, MD Hill [address] [place] [address] PCP - General Family Medicine 03/15/15 [facility] 11/23/24 documented as of this encounter
--- OUTSIDE RECORDS SUMMARY | 2024-12-07 11:21 | XMS_ITS | Encounter Summary ---
Author Organization [facility] Address [address] [place] [phone] Care Team Providers Care Exercise Equipment Repair Technician Name Role Phone Gina Fonseca MD Primary Care Provider Encounter Details Date Type Department Care Team (Late st Contact Info) Description 06/10/2024 Lab Requisition [facility] - Main Lab [address] [facility] [place] [place] [address] Behzad Conway MD [address] [place] [address] [id number] Anemia, unspecified Social History Tobacco Use Types [...] PM EST Office Visit [facility] [place] [address] [phone] Vicente Pearce DPM [address] [facility] 250 [place] [address] documented as of this encounter Visit Diagnoses Diagnosis Anemia, unspecified documented in this encounter Care Teams Exercise Equipment Repair Technician Relationship Specialty Start Date End Date Gina Fonseca MD [address] [place], [place] PCP - General Internal Medicine 10/16/21 documented as of this encounter
--- OUTSIDE RECORDS SUMMARY | 2024-12-07 11:21 | XMS_ITS | Encounter Summary ---
Author Organization [employer] Address [address] [facility] 7t [place] [address] Care Team Providers Care Steelworker Name Role Phone Name, [place] HERNANDEZ Primary Care Provider [phone] Reason for Visit * Reason Onset Date Comments Call Back Request 06/18/2024 Encounter Details Date Type Department Care Team ([facility] st Contact Info) Description 06/18/2024 Telephone [facility] MEDICINE [address] [place], [place] [phone] Name, MD Hill [address] [place] [address] Call Back Request Social History Tobacco Use [...] - 06/18/2024 3:17 PM EDT Tc from [place] with [facility] regarding ramelteon (Rozerem) 8 MG tablet requesting a call back from nurses to discuss alternative med. [phone] documented in this encounter Plan of Treatment Upcoming Encounters Date Type Department Care Team ([facility] st Contact Info) Description 12/14/2024 10:00 AM EDT Office Visit [facility] MEDICINE [address] [place] [phone] Name, MD Hill [address] [place] [address] documented as of this encounter Visit Diagnoses Not on filedocumented in this encounter Additional Health Concerns Assessment Noted Time PHQ-9 Depression Total Score: 4 03/17/19 25 2:14 PM EST documented as of this encounter Care Teams Steelworker Relationship Specialty Start Date End Date Name, MD Hill [address] [place] [address] PCP - General Family Medicine 03/15/15 [facility] 11/23/24 documented as of this encounter
--- OUTSIDE RECORDS SUMMARY | 2024-12-07 11:22 | XMS_ITS | Encounter Summary ---
Author Organization [employer] Address [address] [facility] [address] 7t [place] [address] Care Team Providers Care Cell Builder Name Role Phone Name, Hill HERNANDEZ Primary Care Provider [phone] Encounter Details Date Type Department Care Team (Late st Contact Info) Description 02/01/2023 Telephone [facility] MEDICINE 230 [place], [place] [phone] Name, MD Hill [address] [place] [address] Social History Tobacco Use Types Packs/Day Years [...] Description 12/14/2024 10:00 AM EDT Office Visit [facility] MEDICINE [address] [place] [address] Name, MD Hill [address] [place] [address] documented as of this encounter Visit Diagnoses Not on filedocumented in this encounter Additional Health Concerns Assessment Noted Time PHQ-9 Depression Total Score: 19 023 1:35 PM EDT documented as of this encounter Care Teams Cell Builder Relationship Specialty Start Date End Date NameHill MD [address] [place] [address] PCP - General Family Medicine 03/15/15 [facility] 11/23/24 documented as of this encounter
--- OUTSIDE RECORDS SUMMARY | 2024-12-07 11:22 | XMS_ITS | Encounter Summary ---
Author Organization [employer] Address [address] [facility] 7t [place] [address] Care Team Providers Care Certified Shorthand Reporter Name Role Phone Name, Hill HERNANDEZ Primary Care Provider [phone] Reason for Visit * Reason Onset Date Comments FYI 05/07/2023 Encounter Details Date Type Department Care Team ([facility] st Contact Info) Description 05/07/2023 Telephone [facility] MEDICINE 230 [place], [place] [phone] Name, MD Hill [address] [place] [address] Social History Tobacco Use Types Packs/Day Years [...] blood pressure and Charla rojas advised by conventional underwriter that pt was seen yesterday and have an appt on . Any questions to Dennise [phone] documented in this encounter Plan of Treatment Upcoming Encounters Date Type Department Care Team (Late st Contact Info) Description 12/14/2024 10:00 AM EDT Office Visit [facility] MEDICINE [address] [place] [address] Name, MD Hill [address] [place] [address] documented as of this encounter Visit Diagnoses Not on filedocumented in this encounter Additional Health Concerns Assessment Noted Time PHQ-9 Depression Total Score: 0 03/07/19 24 8:57 AM EST documented as of this encounter Care Teams Certified Shorthand Reporter Relationship Specialty Start Date End Date Name, MD Hill [address] [phone] PCP - General Family Medicine 03/15/15 [facility] 11/23/24 documented as of this encounter
--- OUTSIDE RECORDS SUMMARY | 2024-12-07 11:22 | XMS_ITS | Encounter Summary ---
Author Organization [employer] Address [address] [facility] 7t [place] [address] Care Team Providers Care Eye Care Professional Name Role Phone Name, Hill HERNANDEZ Primary Care Provider [phone] Reason for Visit * Reason Onset Date Comments Pre-op Visit 04/25/2023 Encounter Details Date Type Department Care Team ([facility] st Contact Info) Description 04/25/2023 Telephone [facility] MEDICINE [address] [place], [place] [phone] Name, MD Hill [address] [place] [address] Pre-op Visit Social History Tobacco Use Types [...] Lab needed: No EKG: No Surgeon's name: [facility] name: [facility]geon's office number: [phone] Surgeon's office fax number: [phone] Contact name (person you spoke with): Patricia Last office note from surgeon requested documented in this encounter Plan of Treatment Upcoming Encounters Date Type Department Care Team (Late st Contact Info) Description 12/14/2024 10:00 AM EDT Office Visit [facility] MEDICINE [address] [place] [phone] Name, MD Hill [address] [place] [address] documented as of this encounter Visit Diagnoses Not on filedocumented in this encounter Additional Health Concerns Assessment Noted Time PHQ-9 Depression Total Score: 0 03/07/19 24 8:57 AM EST documented as of this encounter Care Teams Eye Care Professional Relationship Specialty Start Date End Date Name, MD Hill [address] [place] [address] PCP - General Family Medicine 03/15/15 [facility] 11/23/24 documented as of this encounter
--- OUTSIDE RECORDS SUMMARY | 2024-12-07 11:22 | XMS_ITS | Encounter Summary ---
Author Organization [employer] Address [address] [facility] 7t [place] [address] Care Team Providers Care Automation Tech Name Role Phone Name, Hill HERNANDEZ Primary Care Provider [phone] Reason for Visit * Reason Onset Date Comments Med Refill telephone call 10/20/2022 EQUIPMENT MAINTENANCE TECH Services 10/20/2022 The pt requested to have her EQUIPMENT MAINTENANCE TECH services reinstated by CHUYITA. I called to inform her, that she needs to contact her insurance [facility] to make the request, because the referral needs to go through them. I reached a voicemail, and left a msg with the above information. I asked her to contact me at ext [phone], if she has any questions. Encounter Details Date Type Department Care Team (Late st Contact Info) Description 10/20/2022 Refill [facility] MEDICINE [address] [place] [address] Name, MD Hill [address] [place] [address] Social History Tobacco Use Types Packs/Day Years [...] EDT The pt requested to have her EQUIPMENT MAINTENANCE TECH services reinstated by CHUYITA. I called to inform her, that she needs to contact her insurance [facility] to make the request, because the referral needs to go through them. I reached a voicemail, and left a msg with the above information. I asked her to contact me at ext [phone], if she has any questions. * Telephone Encounter - Hope Zora - 10/22/2022 10:20 AM EDT Pt walked in requesting a call from PCP or nurses, because she has a question about doggy daycare activities director services and a form that her pcp signed and she has not hear anything from no one she doesn't specify exactly what she needs, she just wants the call. I told her to go to medical records she said they don't havethe form. Best # to call is [phone] documented in this encounter Plan of Treatment Upcoming Encounters Date Type Department Care Team (Late st Contact Info) Description 12/14/2024 10:00 AM EDT Office Visit [facility] MEDICINE [address] [place] [address] Name, MD Hill [address] [place] [address] documented as of this encounter Visit Diagnoses Not on filedocumented in this encounter Additional Health Concerns Assessment Noted Time PHQ-9 Depression Total Score: 19 023 1:35 PM EDT documented as of this encounter Care Teams Automation Tech Relationship Specialty Start Date End Date Name, MD Hill [address] [place] [address] PCP - General Family Medicine 03/15/15 [facility] 11/23/24 documented as of this encounter
--- OUTSIDE RECORDS SUMMARY | 2024-12-07 11:22 | XMS_ITS | Encounter Summary ---
Author Organization [employer] Address [address] [facility] 7t [place] [address] Care Team Providers Care Brim Pouncing Machine Operator Name Role Phone Name, Hill HERNANDEZ Primary Care Provider [phone] Reason for Visit * Reason Onset Date Comments Call Back Request 02/01/2023 Encounter Details Date Type Department Care Team ([facility] st Contact Info) Description 02/01/2023 Telephone [facility] MEDICINE [address] [place], [place] [phone] Name, MD Hill [address] [place] [address] Call Back Request Social History Tobacco Use [...] 2:16 PM EST T/C to pt. Through [email or web address] id - [id number] for below message to inform submit paperwork regarding EXERCISE MANAGER hours at medical records/ forms dept. Pt. Verbally agreed and understood. * Telephone Encounter - Aylin Duncan - 02/01/2023 3:37 PM EST Tc from pt requesting a call back in regards paperwork for EXERCISE MANAGER hours. documented in this encounter Plan of Treatment Upcoming Encounters Date Type Department Care Team (Late st Contact Info) Description 12/14/2024 10:00 AM EDT Office Visit [facility] MEDICINE [address] [place] [address] Name, MD Hill [address] [place] [address] documented as of this encounter Visit Diagnoses Not on filedocumented in this encounter Additional Health Concerns Assessment Noted Time PHQ-9 Depression Total Score: 19 023 1:35 PM EDT documented as of this encounter Care Teams Brim Pouncing Machine Operator Relationship Specialty Start Date End Date NameHill MD [address] [place] [address] PCP - General Family Medicine 1/19/16 [facility] 11/23/24 documented as of this encounter
--- OUTSIDE RECORDS SUMMARY | 2024-12-07 11:22 | XMS_ITS | Encounter Summary ---
Author Organization [employer] Address [address] [facility] [address] 7t [place] [address] Care Team Providers Care Oceanography Teacher Name Role Phone Name, Hill HERNANDEZ Primary Care Provider [phone] Encounter Details Date Type Department Care Team (Late st Contact Info) Description 01/21/2023 Telephone [facility] MEDICINE 230 [place], [place] [phone] Name, MD Hill [address] [place] [address] Social History Tobacco Use Types Packs/Day Years [...] 12/14/2024 10:00 AM EDT Office Visit [facility] MEDICINE [address] [place] [address] Name, MD Hill [address] [place] [address] documented as of this encounter Visit Diagnoses Not on filedocumented in this encounter Additional Health Concerns Assessment Noted Time PHQ-9 Depression Total Score: 19 023 1:35 PM EDT documented as of this encounter Care Teams Oceanography Teacher Relationship Specialty Start Date End Date NameHill MD 230 [place] [address] PCP - General Family Medicine 03/15/15 [facility] 11/23/24 documented as of this encounter
== END 2024-12-01 00:01 | disposition home or self-care (01) ==
LOC: HO.MRI
PROVIDERS: PCP Internal Medicine Geriatric Medicine; Visit Provider Orthopaedic Surgery
DX: M25.311 Other instability, right shoulder (principal)
CPT/HCPCS: 73221

== ENCOUNTER → 2024-12-01 20:40 | Outpatient (BNV) | payer OTHER, SELFPAY | PROVIDERS: PCP Internal Medicine Geriatric Medicine; Visit Provider Radiology Diagnostic Ultrasound | DX: M75.121 Complete rotator cuff tear or rupture of right shoulder, not specified as traumatic (principal); M19.011 Primary osteoarthritis, right shoulder; M25.411 Effusion, right shoulder; M75.31 Calcific tendinitis of right shoulder | CPT/HCPCS: 73221 ==

== ENCOUNTER 2024-12-17 13:48 | Outpatient (AMB) | payer OTHER, SELFPAY ==
--- OUTSIDE RECORDS SUMMARY | 2024-06-09 06:10 | XMS_ITS ---
Author Organization [facility] Address [address] [place] [address] Care Team Providers Care Inspection Engineer Name Role Phone Name Hill HERNANDEZ Primary Care Provider James Kaur [phone] REASON FOR VISIT Patient presents today for an upper endo Encounters Encounter Location Date Provider Diagnosis [facility] [address] [place] [address] 06/09/2024 James Easton Plan Of Treatment Next Appt Details Provider Name:James Easton , 03/16/2025 10:50:00 AM, [address], [address], [place], [address], Progress Notes * RAFFAELE CHUNG EDOB:[birth year] (79 yo F)Acc No.[id number]:06/09/2024 Progress Notes Patient: RAFFAELE CARR Provider: Curt Easton MD :1945 A ge:79 Y S ex:Female Date:06/09/2024 Address:[address] [facility] [address], [place], [place] Pcp:Hill Dickson MD Subjective: * Chief Complaints: [...] provider. Sign off status: Pending * Provider: uCrt Easton MD Date: 0 06/09/2024 Generated for Tejinder erickson/Andres/Nir on: 1 05:42 PM EDT
--- OUTSIDE RECORDS SUMMARY | 2024-12-14 10:00 | XMS_ITS | Encounter Summary ---
Author Organization [employer] Address [address] [facility] 7[address] [place] [address] Care Team Providers Care Plasterer Rough Name Role Phone Hill Dickson MD Primary Care Provider [phone] Reason for Referral * Consultation (Routine) - Authorized Specialty Diagnoses / Procedures Referred By Molly mclain Referred To Contact Behavioral Health Diagnoses Major depression, chronic Procedures Referral to Behavioral Health Hill Dickson MD [address] [place] [phone] Phone: tel: fax: Referral ID Status Reason Start Date Expiration Date Visits Requested Visits Authorized [id number] Authorized Specialty Services Required 12/14/2025 1 1 Reason for Visit * Reason Comments Follow-up Encounter Details Date Type Department Care Team (Latest Contact Info) Description 12/14/2024 10:00 AM EDT Office Visit [facility] MED[facility]INE [address] [place] [address] [phone] Hill Dickson MD [address] [place] [address] [phone] Type 2 diabetes mellitus with other specified complication, without long-term current use of insulin (HCC) (Primary Dx); Hypertension, unspecified type; Acute vaginitis; Major depression, chronic; Primary insomnia; Chronic right shoulder pain; Primary osteoarthritis of both knees; Vaccine refused by patient Social History Tobacco Use Types Packs/Day Years Used Date Smoking Tobacco: Never Passive Smoke Exposure: Never Smokeless Tobacco: Never Tobacco Cessation:Counseling Given: Not Answered Alcohol Use Standard Drinks/Week Comments Never 0 (1 standard drink = 0.6 oz pur e alcohol) Depression Answer Date Recorded Patient Health Questionnaire-9 Score 17 12/14/2024 Patient Health Questionnaire-9 Score 17 12/14/2024 Last PHQ-9: Questionnaire Data Not on file 1 Housing Stability Answer Date Recorded What is [...] Answer Date Recorded Patient Health Questionnaire-2 Score 5 12/14/2024 Internet Access Answer Date Recorded Internet Access [...] Sign Reading Time Taken Comments Blood Pressure 146/78 12/14/2024 10:05 AM EDT Pulse 69 12/14/2024 10:05 AM EDT Temperature 36.4 C (97.6 F) 12/14/2024 10:05 AM EDT Respiratory Rate 12 12/14/2024 10:0 5 AM EDT Oxygen Saturation 96% 12/14/2024 10: 05 AM EDT Inhaled Oxygen Concentration - - Weight 67.5 kg (148 lb 12.8 oz) 025 10:05 AM EDT Height 157.5 cm (5' 2 ) 12/14/2024 10:0 5 AM EDT Body Mass Index 27.22 12/14/2024 10:05 AM EDT documented in this encounter Functional Status * Over the past 2 weeks, how often have you been bothered by any of the following problems? Question Answer Date of Assessment Author Patient Health Questionnaire-2 Score 5 12/14/2024 10:06 AM JERRELLT Armando Tracy MA * Little interest or pleasure in doing things Answer Date of Assessment Author Nearly every day 12/14/2024 10:06 AM JERRELLT Livia Gary MA * Feeling down, depressed, or hopeless Answer Date of Assessment Author More than half the days 12/14/2024 10:06 AM Livia Dickson MA * Trouble falling or staying asleep, or sleeping too much Answer Date of Assessment Author Nearly every day 12/14/2024 10:06 AM Livia Traylor MA * Feeling tired or having little energy Answer Date of Assessment Author Nearly every day 12/14/2024 10:06 AM Livia Traylor MA * Poor appetite or overeating Answer Date of Assessment Author Nearly every day 12/14/2024 10:06 AM Livia Traylor MA * Feeling bad about yourself - or that you are a failure or have let yourself or your family down Answer Date of Assessment Author Not at all 12/14/2024 10:06 AM Livia Dickson MA * Trouble concentrating on things, such as reading the newspaper or watching television Answer Date of Assessment Author Not at all 12/14/2024 10:06 AM Livia Dickson MA * Moving or speaking so slowly that other people could have noticed? Or the opposite - being so fidgety or restless that you have been moving around a lot more than usual. Answer Date of Assessment Author Not at all 12/14/2024 10:06 AM Livia Dickson MA * Thoughts that you would be better off or hurting yourself in some way Answer Date of Assessment Author Nearly every day 12/14/2024 10:06 AM JERRELLT Livia Gary MA * Patient Health Questionnaire-9 Score Answer Date of Assessment Author 17 12/14/2024 10:06 AM Livia Dickson MA * How difficult have these problems made it for you to do your work, take care of things at home, or get along with other people? Answer Date of Assessment Author Very difficult 12/14/2024 10:06 AM Livia Dickson MA documented as of this encounter Progress Notes * Hill Dickson MD - 12/14/2024 10:00 AM EDT Subjective Patient ID: Azeb Kennedy is a 79 y.o. female who presents for Follow-up. Patient comes for a follow-up visit and we discussed several issues. Patient complains of symptoms of depression, anxiety, insomnia, difficulties concentrating. She is not suicidal. She is interestedin talking to a counselor but not today. She also agreed to starting antidepressants medication. The patient is complaining of multiple joint pains. She has difficulties walking because of bilateral knee pain secondary to DJD. She also has several months of right shoulder pain and decreased range of motion of the right shoulder. Recent MRI of the right shoulder ordered by orthopedics showed some tendon rupture. The patient has upcoming appointment later this week to meet with orthopedic to di scuss treatment options. Blood sugars well-controlled with diet alone. She is not using her metformin regularly. Blood pressure has been elevated when she has it checked at home by visiting nurses. She is on lisinopril 2.5 mg daily and she tells me she uses the medication regularly. She also complains of several weeks of vulvar itching. She does not have any vaginal discharge. Sheis not using Jardiance anymore (she has not for more than a year), she has not been sexually activein many years. Review of Systems Constitutional: Negative for chills and fever. HENT: Negative for sore throat. Respiratory: Negative for cough, shortness of breath and wheezing. Cardiovascular: Negative for chest pain, palpitations and leg swelling. Gastrointestinal: Negative for abdominal pain. Musculoskeletal: Positive for arthralgias and gait problem. Psychiatric/Behavioral: Positive for sleep disturbance. Negative for self-injury and suicidal ideas. The patient is nervous/anxious. Objective Vitals: 12/14/24 1005 BP: (!) 146/78 BP Location: Left arm Patient Position: Sitting BP Cuff Size: Adult Pulse: 69 Resp: 12 Temp: 97.6 ??F (36.4 ??C) TempSrc: Temporal SpO2: 96% Weight: 148 lb 12.8 oz (67.5 kg) Height: 5' 2 (1.575 m) Physical Exam Exam conducted with a conductor pullman present. Constitutional: General: She is not in acute distress. Appearance: She is not toxic-appearing. Cardiovascular: Rate and Rhythm: Normal rate and regular rhythm. Pulmonary: Effort: Pulmonary effort is normal. Genitourinary: Comments: Slight redness of the labia majora Musculoskeletal: Right shoulder: Tenderness present. Decreased range of motion. Right knee: Crepitus present. Decreased range of motion. Tenderness present. Left knee: Crepitus present. Decreased range of motion. Tenderness present. Neurological: General: No focal deficit present. Motor: No weakness. Psychiatric: Mood and Affect: Mood normal. Behavior: Behavior normal. Assessment/Plan Diagnoses and all orders for this visit: Type 2 diabetes mellitus with other specified complication, without long-term current use of insulin (HCC) Comments: Diet controlled. I recommended to avoid sweets and soda. I formally discontinue metformin and Jardiance that she has not used in more than a year Orders: - POCT Glucose - POCT Hgb A1c Hypertension, unspecified type Comments: Increase lisinopril to 5, recheck BMP next week, continue checking BP at home daily ([facility] is doing BP checks) Orders: - Basic Metabolic Panel; Future Acute vaginitis Comments: I recommended 1 dose of fluconazole to treat for possible vulvar candidiasis. I encouraged to call if symptoms persist. Orders: - fluconazole (Diflucan) 150 MG tablet; Take 1 tablet (150 mg) by mouth 1 (one) time for 1 dose. Major depression, chronic Comments: Patient is not suicidal. She agreed with referral to counseling. I will start the patient on Cymbalta. Orders: - Referral to Behavioral Health; Future Primary insomnia Comments: I refilled the patient DayVigo Orders: - lemborexant (DayVigo) 10 MG tablet; Take 1 tablet (10 mg) by mouth if needed at bedtime for sleep(3 month supply due to travel). Chronic right shoulder pain Comments: I encouraged the patient to continue as needed Tylenol. Keep upcoming appointment with orthopedics. Primary osteoarthritis of both knees Comments: See above. The patient has been using a cane and she is encouraged to continue. I also started the patient on Cymbalta for depression and musculoskeletal pain Vaccine refused by patient Comments: Patient refused any vaccination today Other orders - pravastatin (Pravachol) 10 MG tablet; Take 1 tablet (10 mg) by mouth Once per day. - lisinopril 5 MG tablet; Take 1 tablet (5 mg) by mouth Once per day. - omeprazole (PriLOSEC) [address] capsule; Take 1 capsule (20 mg) by mouth in the morning. - DULoxetine (Cymbalta) [address] capsule; Take 1 capsule (30 mg) by mouth Once per day for 7 days, THEN 1 capsule (30 mg) 2 times daily. Do not crush or chew. documented in this encounter Plan of Treatment Upcoming Encounters Date Type Department Care Team (Late st Contact Info) Description 03/18/2025 9:45 AM EST Office Visit [facility] MEDICINE [address] [place] [phone] Hill Dickson MD [address] [place] [address] Scheduled Orders Name Type Priority Associated Diagnoses Orde r Schedule Basic Metabolic Panel Lab Routine Hypertension, unspecified type Expected: 12/14/2024 (Approximate), Expires: 12/14/2025 documented as of this encounter Procedures Procedure Name Priority Date/Time Associated Diagnosis Comments POCT GLYCATED HEMOGLOBIN, TOTAL Routine 12/14/2024 10:07 AM EDT Type 2 diabetes mellitus with other specified complication, without long-term current use of insulin (HCC) POCT GLUCOSE Routine 12/14/2024 10:07 AM EDT Type 2 diabetes mellitus with other specified complication, without long-term current use of insulin (HCC) documented in this encounter Results * (ABNORMAL) POCT Hgb A1c (12/14/2024 10:07 AM EDT) Hemoglobin A1C 5.9(A) 4.0 - 5.7 % QC Media Lot # [id number] Lot# Expiration Date 41,627 Blood 12/14/2024 10:0 7 AM EDT Hill Dickson MD POINT OF CARE TEST ENTER/EDIT OR DERABLES Final Result * POCT Glucose (12/14/2024 10:07 AM EDT) Glucose Blood, POC 149 60 - 200 mg/dL QC Media Lot # [id number] Lot# Expiration Date 31,126 Blood Capillary blood specimen / Unknown 12/14/2024 10:07 AM EDT us Hill Dickson MD POINT OF CARE TEST ENTER/EDIT OR DERABLES Final Result documented in this encounter Visit Diagnoses Diagnosis Type 2 diabetes mellitus with other specified complication, without long-term current use of insulin (HCC)- Primary Hypertension, unspecified type Acute vaginitis Unspecified vaginitis and vulvovaginitis Major depression, chronic Primary insomnia Persistent disorder of initiating or maintaining sleep Chronic right shoulder pain Pain in joint, shoulder region Primary osteoarthritis of both knees Vaccine refused by patient documented in this encounter Additional Health Concerns Assessment Noted Time PHQ-9 Depression Total Score: 17 025 10:06 AM EDT documented as of this encounter Care Teams Plasterer Rough Relationship Specialty Start Date End Date Name, MD Hill [address] [place] [address] PCP - General Family Medicine 03/15/15 [facility] 11/23/24 documented as of this encounter
--- NOTE | 2024-12-17 14:10 | A.OFFVIS_ITS ---
Vital Signs 12/17/24 14:14 Height 5 ft Weight 144 lb BMI 28.1 Intake Visit Reasons: Ov- MRI review/ right shoulder pain Intake Note: Azeb is a 79 year old female who presents with complaints of progressively worsening right shoulder pain and weakness. The patient states that she fell onto her shoulder approximately 6 months ago. Since that time her symptoms have gotten worse. She reports weakness when lifting her right hand above shoulder height. She has failed the last 6 weeks of conservative treatment which has included Tylenol, meloxicam, a home exercise program and physical therapy exercises. At this point her right shoulder pain and weakness or interfering with her activities of daily living and her ability to sleep well through the night. Drywaller Name: grand son Kendall Melgar Allergies No Known Allergies Allergy (Verified 12/17/24 14:13) Medication List - Last Reconciled 12/17/24 by Thiago Adames MD amitriptyline 50 mg PO BEDTIME lisinopril 2.5 mg PO DAILY magnesium oxide 400 mg PO DAILY melatonin 5 mg PO BEDTIME meloxicam 15 mg PO DAILY PRN metformin 850 mg PO BID omeprazole 20 mg PO DAILY@0630 pravastatin 10 mg PO DAILY PFSH Medical History Sacroiliac joint dysfunction Sacroiliitis Low back pain Primary osteoarthritis of knees, bilateral HTN (hypertension) Diabetes Arthritis Surgical History History of hysterectomy History of cholecystectomy Social History (Updated 12/17/24 @ 14:13 by Estefania Garcia [facility]) Alcohol intake: never 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 Physical Exam Vital Signs: BMI result Body Mass Index 28.1 Extrem Other: Right shoulder examination shows decreased range of motion when compared to her left shoulder, 3/5 strength with supraspinatus testing, positive impingement signs, no instability Results Reviewed Results Reviewed: MRI of the patient's right shoulder shows a large rotator cuff tear involving the supraspinatus and infraspinatus tendons with retraction approximately penitentiary to the glenoid lip Assessment & Plan Assessment & Plan (1) Rotator cuff insufficiency of right shoulder: Code(s): M25.311 - Other instability, right shoulder Category: Medical Plan Ms. Kennedy presents with progressively worsening right shoulder pain and weakness due to impingement syndrome as well as a large rotator cuff tear. I had a lengthy discussion with the patient regarding the treatment options. At this point I am not sure that the patient's rotator cuff tear is reparable. She may indeed require reverse total shoulder replacement surgery. Thus, I will have her evaluated by my partner, Dr. Zheng, for further information regarding her treatment options. She will continue with her [id number] exercises in the meantime. I spent 20 minutes in reviewing the patient's records and imaging studies, seeing the patient and documenting in the medical record. Coding Level of Care Code Est Pt Level 3 (54540) Complex EM visit Add On G2211 Diagnoses Rotator cuff insufficiency of right shoulder M25.311
[2024-12-17 14:14] VITALS: BMI 28.1
--- OUTSIDE RECORDS SUMMARY | 2024-12-17 17:43 | XMS_ITS | Encounter Summary ---
Author Organization [employer] Address [address] [facility] 7t [place] [address] Care Team Providers Care Garnett Feeder Name Role Phone Name, Hill HERNANDEZ Primary Care Provider [phone] Encounter Details Date Type Department Care Team (Latest Contact Info) Description 07/26/2021 Abstract [facility] CONVERSIONS Dental, Provider, DDS Social History Tobacco [...] Description 03/18/2025 9:45 AM EST Office Visit [facility] [address] [place] [address] Name, MD Hill [address] [place] [address] documented as of this encounter Visit Diagnoses Not on filedocumented in this encounter Care Teams Garnett Feeder Relationship Specialty Start Date End Date Name, MD Hill [address] [place] [address] PCP - General Family Medicine 03/15/15 [facility] 11/23/24 documented as of this encounter
--- OUTSIDE RECORDS SUMMARY | 2024-12-17 17:43 | XMS_ITS | Clinical Summary ---
Author Organization [facility] Address [address] [facility] [address] [place] [phone] Phone Care Team Providers Care Rim Buster Name Role Phone Name, Hill HERNANDEZ Primary Care Provider [phone] Allergies No known active allergies Medications metformin [...] topic Medical Devices Not on file Insurance [facility] MEDICARE REPLACEMENT Member Subscriber Plan / Payer (Ef fective 2019-Present) Name:Azeb Kennedy Relation to Subscriber:Self Name:Azeb Kennedy Payer ID:[id number] (NAIC) Group ID:Not on file Type:Medicare Address: [place] [id number] MEDICARE REPLACEMENT [id number] [place] [id number] [facility] MEDICARE [place] [address] [place] [address] [place] [place] [address] MEDICARE REPLACEMENT [facility] MEDICARE REPLACEMENT MEDICARE [place] [address] [place] [address] MEDICARE REPLACEMENT [place] [id number] Care Teams Rim Buster Relationship Specialty Start Date End Date Name, MD Hill [address] [place] [id number] PCP - General Geriatric Psychiatry 01/07/20 Additional Source Comments The information contained in this document represents components of the legal health record. It is not the complete legal health record.[facility]
--- OUTSIDE RECORDS SUMMARY | 2024-12-17 17:43 | XMS_ITS | Encounter Summary ---
Author Organization [employer] Address [address] [facility] [address]t [place] [address] Care Team Providers Care Roof Service Technician Name Role Phone Name, Hill HERNANDEZ Primary Care Provider [phone] Encounter Details Date Type Department Care Team ([facility] Contact Info) Description 03/26/2022 Orders Only [facility] MEDICINE [address] [place] [phone] Jane Oneill LPN Social History Tobacco Use [...] Department Care Team (Late Contact Info) Description 03/18/2025 9:45 AM EST Office Visit [facility] MED[facility]INE [address] [place] [phone] Name, MD Hill [address] [place] [phone] documented as of this encounter Visit Diagnoses Not on filedocumented in this encounter Care Teams Roof Service Technician Relationship Specialty Start Date End Date Name, MD Hill [address] [place] [address] PCP - General Family Medicine 03/15/15 [facility] 11/23/24 documented as of this encounter
--- OUTSIDE RECORDS SUMMARY | 2024-12-17 17:43 | XMS_ITS | Clinical Summary ---
Author Organization [facility] Address [address] [place] [address] Care Team Providers Care Cattle Feeder Name Role Phone Name, Hill HERNANDEZ Primary Care Provider [phone] Allergies No known active allergies Medications * This document contains information received from the source organization and may not represent a complete record from that organization. Lancets (OneTouch Delica Plus [id number]) misc TEST BLOOD SUGAR THREE TIMES DAILY [...] times daily. 1 each 02/22/20 23 Active Lancets (OneTouch Delica Plus [id number]) miscIndications :Diabetes mellitus type 2 in obese TEST BLOOD SUGAR THREE TIMES DAILY 100 each 11 04/10/19 24 Active chlorhexidine (Peridex) 0.12 % solution Swish 15 mL morning and night for 1 minute. Spit, do not swallow. Do not eat or drink for 30 minutes following use. 473 mL 08/16/19 24 Active Diclofenac Sodium 1 % gelIndications: Chronic low back pain, unspecified back pain laterality, unspecified whether sciatica present Apply thin layer twice a day to the affected area 100 g 2 11/18/19 24 Active cetirizine (ZyrTEC) 10 MG tablet Take 1 tablet (10 mg) by mouth Once per day. 60 tablet 12/02/19 24 Active Romy-Dryl 25 MG tablet TAKE 1 TABLET BY MOUTH AT BEDTIME NEEDED FOR SLEEP 30 tablet 12/02/19 24 Active lidocaine-prilo cammy (Emla) 2.5-2.5 % [...] complication, without long-term current use of insulin ([facility]),Essential hypertension TAKE 1 TABLET BY MOUTH TWICE DAILY WITH BREAKFAST AND WITH DINNER 60 tablet 11 05/07/19 25 Active ketorolac (Acular) 0.5 % ophthalmic solution INSTILL 1 DROP THE OPERATIVE EYE THREE TIMES DAILY. START 2 DAYS BEFORE SURGERY. TAPER DIRECTED 10/02/19 24 Active ofloxacin (Ocuflox) 0.3 % ophthalmic solution PLACE 1 DROP IN THE RIGHT EYE FOUR TIMES DAILY STARTING 1 DAY AFTER PROCEDURE APPOINTMENT 09/12/19 24 Active glucose blood (OneTouch Ultra Test) test stripIndication s:Type 2 diabetes mellitus with other specified complication, without long-term current use of insulin ([facility]) TEST BLOOD SUGAR THREE TIMES DAILY 150 strip 11 08/05/19 25 Active pravastatin (Pravachol) 10 MG tablet Take 1 tablet (10 mg) by mouth Once per day. 90 tablet 3 12/15/19 25 Active lisinopril 5 MG tablet Take 1 tablet (5 mg) by mouth Once per day. 30 tablet 11 12/15/19 25 2025 Active omeprazole (PriLOSEC) [address] capsule Take 1 capsule (20 mg) by mouth in the morning. 30 capsule 3 12/15/19 25 Active lemborexant (DayVigo) 10 MG tabletIndicatio ns:Primary insomnia Take 1 tablet (10 mg) by mouth if needed at bedtime for sleep (3 month supply due to travel). 30 tablet 12/15/19 25 2024 Active DULoxetine (Cymbalta) [address] capsule Take 1 capsule (30 mg) by mouth Once per day for 7 days, THEN 1 capsule (30 mg) 2 times daily. Do not crush or chew. 67 capsule 2 12/15/19 25 2024 Active empagliflozin (Jardiance) 10 MG Take 1 tablet (10 mg) by mouth in the morning. 30 tablet 11 03/07/19 24 2024 Discontinued(T herapy completed) pravastatin (Pravachol) 10 MG tablet Take 1 tablet (10 mg) by mouth Once per day. 90 tablet 3 09/16/19 24 2024 Discontinued(R eorder (will not trigger notification to Pharmacy)) oxyCODONE (Roxicodone) 5 MG immediate release tabletIndicatio ns:Shoulder injury, right, initial encounter Take 1 tablet (5 mg) by mouth if needed in the morning, at noon, and at bedtime for severe pain. May cause drowsiness and dizziness. Try using at bedtime initially. 12 tablet 05/21/19 25 2024 Discontinued(I neffective) prednisoLONE acetate (Pred-Forte) 1 % ophthalmic suspension PLACE 1 DROP IN THE RIGHT EYE FOUR TIMES DAILY STARTING 1 DAY AFTER PROCEDURE APPOINTMENT 09/12/19 24 2024 Discontinued(T herapy completed) lisinopril 2.5 MG tabletIndicatio ns:Essential hypertension TAKE 1 TABLET BY MOUTH EVERY DAY IN THE MORNING 90 tablet 1 09/11/19 25 2024 Discontinued(D ose adjustment) omeprazole (PriLOSEC) [address] capsule TAKE 1 CAPSULE BY MOUTH EVERY MORNING 30 capsule 3 09/17/19 25 2024 Discontinued(R eorder (will not trigger notification to Pharmacy)) lemborexant (DayVigo) 10 MG tabletIndicatio ns:Primary insomnia Take 1 tablet (10 mg) by mouth if needed at bedtime for sleep (3 month supply due to travel). 90 tablet 09/25/19 25 2024 Discontinued(R eorder (will not trigger notification to Pharmacy)) DULoxetine (Cymbalta) [address] capsule Take 1 capsule (30 mg) by mouth 2 times daily. Do not crush or chew. 60 capsule 3 12/15/19 25 2024 Discontinued(T herapy completed) fluconazole (Diflucan) 150 MG tabletIndicatio ns:Acute vaginitis Take 1 tablet (150 mg) by mouth 1 (one) time for 1 dose. 1 tablet 1 12/15/19 25 2024 Active Problems Problem Noted Date Diagnosed Date [...] family illness. Azeb's boyfriend unexpectedly in the [place]. They have been together for about four years. Azeb lives alone and reports having sense of isolation and feeling lonely. The passing of her boyfriend has been identified as main stressor. PLAN: (check all that apply) Further services needed, but declined Behavioral Health Integration Plan Internal Follow up with [facility] Patient Self Plan Patient to utilize skills provided in intervention , [facility], Comply with medication [...] family illness. Azeb's boyfriend unexpectedly in the [place]. They have been together for about four years. Azeb lives alone and reports having sense of isolation and feeling lonely. The passing of her boyfriend has been identified as main stressor. PLAN: (check all that apply) Further services needed, but declined Behavioral Health Integration Plan Internal Follow up with [facility] Patient Self Plan Patient to utilize skills provided in intervention , Patient to reach out to [facility] team as needed, Comply with medication , [...] without diagnosis of hypertension 07/31/2011 06/22/2024 Encounters * This document contains information received from the source organization and may not represent a complete record from that organization. Date Type Department Care Team Description 12/17/[address] [address] Hill Dickson MD Med Refill 12/14/2024 10:00 AM EDT Office Visit [address] [address] Hill Dickson MD Type 2 diabetes mellitus with other specified complication, without long-term current use of insulin (HCC) (Primary Dx); Hypertension, unspecified type; Acute vaginitis; Major depression, chronic; Primary insomnia; Chronic right shoulder pain; Primary osteoarthritis of both knees; Vaccine refused by patient 12/14/2024 Travel 12/11/[address] [address] Hill Dickson MD chart prep 12/01/[address] [address] Hill Dickson MD 11/20/2024 Orders Only [facility] External Provider, [facility] 10/29/2024 8:40 AM EDT Office Visit [facility] [address] [place] [phone] Alejo Miranda MD Right shoulder pain, unspecified chronicity (Primary Dx) 10/29/2024 Travel 10/19/2024 Telephone [facility] [address] [place] [phone] Alejo Miranda MD 10/16/2024 10:00 AM EDT [facility] [address] [address] Alejo Miranda MD Right shoulder pain, unspecified chronicity (Primary Dx) 10/05/2024 9:00 AM EDT [facility] [address] [address] Vaishali Gee MD COVID-19 (Primary Dx) 10/05/2024 Travel 10/01/2024 8:40 AM EDT Office Visit [facility] [address] [address] Alejo Miranda MD COVID-19 (Primary Dx); Right knee pain, unspecified chronicity 10/01/[address] [place] [address] Livia Tracy MA october recalls 10/01/2024 Travel 09/24/2024 Orders Only [facility] [address] [place] [address] Sharonda Stern, DANISH Primary insomnia (Primary Dx) 09/23/2024 Refill [facility] [address] [place] [address] Sharonda Stern NP 09/23/2024 Telephone [facility] [address] [place], [place] [phone] Teresa Samson RN 09/16/2024 Refill [facility] [address] [place] [address] Name, MD Hill from Last 3 Months Immunizations Immunization Administration [...] Mass Index 27.22 12/14/2024 10:05 AM EDT Plan of Treatment Upcoming Encounters Date Type Department Care Team (Late st Contact Info) Description 03/18/2025 9:45 AM EST Office Visit [facility] [address] [place] [phone] Name, MD Hill [address] [place] [address] Health Maintenance Due Date Last Done Comments [...] history exists Influenza Vaccine (#1) 2024 11/15/2008 Alcohol/Substance Use Screening 03/17/2025 03/17/2024 Eye Exam 03/22/2025 03/22/2023, 01/10/2023 Diabetes: Urine Protein Screening 06/11/2025 06/11/2024, 09/09/2023, 06/28/2022, Additional history exists Lipid Panel 06/11/2025 06/11/2024, 08/25, 06/28/2022, Additional history exists Depression Monitoring 06/14/2025 12/14/2024, 025 Diabetes: Hemoglobin A1C 06/14/2025 025, 06/04/2024, 03/17/2024, Additional history exists SDOH Screening 06/16/2025 06/16/2024 Tobacco Screening 12/14/2025 12/14/2024 DTaP/Tdap/Td Vaccines (3 - Td or Tdap) [...] without long-term current use of insulin (HCC) MR SHOULDER WO CONTRAST RIGHT Routine 12/01/2024 [...] complication, without long-term current use of insulin ([facility]) LIPID PANEL, STANDARD Routine 06/11/2024 9:40 AM EDT Type 2 diabetes mellitus with other specified complication, without long-term current use of insulin ([facility]) PROPHYLAXIS - ADULT Routine 05/27/2023 1 [...] Relevant to Health Maintenance Results * (ABNORMAL) POCT Hgb A1c (12/14/2024 10:07 AM EDT) Hemoglobin A1C 5.9(A) 4.0 - 5.7 % QC Media Lot # [id number] Lot# Expiration Date 416[address] Blood 12/14/2024 10:0 7 AM EDT us Hill Dickson MD POINT OF CARE TEST ENTER/EDIT OR DERABLES Final Result * POCT Glucose (12/14/2024 10:07 AM EDT) Glucose Blood, POC 149 60 - 200 mg/dL QC Media Lot # [id number] Lot# Expiration Date 31,126 Blood Capillary blood specimen / Unknown 12/14/2024 10:07 AM EDT us Hill Dickson MD POINT OF CARE TEST ENTER/EDIT OR DERABLES Final Result * MR Shoulder w/o Contrast Right (12/01/2024 7:45 PM EDT) Anatomical Region Laterality Modality Upper Extremities, Shoulder Right Magn etic Resonance 12/01/2024 7:45 PM EDT Narrative 12/03/2024 8:19 AM EDT [place] [address] Magnetic Resonance Report Signed Patient: Azeb Kennedy MR#: [id number] 4 : 1945 Acct:[id number] Age/Sex: 79 / F ADM Date: 11/20/24 Loc: HO.MRI Attending Dr: Thiago Adames MD Ordering Physician: Thiago Adames MD Date of Service: 12/01/24 Procedure(s): MR shoulder RT wo con Accession Number(s): [id number] cc: Name,Hill HERNANDEZ; Thiago Adames MD Reason [...] in OV> 12/03/24815 DD/ 44 TD/TT: 12/01/242010 Assistant Professor Of Radiology: LUCY Procedure Note Donotuseinterpreter, Image - 12/03/[address] [address] Magnetic Resonance Report Signed Patient: Abraham Kennedy#: [id number] 4 : 8Acct:[id number] Age/Sex: 79 / FADM Date: 11/20/24 Loc: HO.MRI Attending Dr: Thiago Adames MD Ordering Physician: Thiago Adames MD Date of Service: 12/01/24 Procedure(s): MR shoulder RT wo con Accession Number(s): [id number] cc: Name,Hill HERNANDEZ; Thiago Adames MD Reason [...] in OV> 12/03/24815 DD/ 44 TD/TT: 12/01/242010 Assistant Professor Of Radiology: LUCY [facility] External Provider IMG MRI PROCEDURES Final Result * XR Knee 4+ Views Left (11/20/2024 12:27 PM EDT) Anatomical Region Laterality Modality Lower Extremities, Knee Left Radiogra phic Imaging 11/20/2024 12:2 7 PM EDT Narrative 11/20/2024 12:35 PM EDT [address] [address] XRay Report Signed Patient: Azeb Kennedy MR#: [id number] 4 : 1945 Acct:[id number] Age/Sex: 79 / F ADM Date: 11/20/24 Loc: HO.ED Attending Dr: Ordering Physician: Radha Cagle NP Date of Service: 11/20/24 Procedure(s): XR knee LT 4V Accession Number(s): [id number] cc: Yessi,Hill HERNANDEZ; Radha Cagle NP Reason for Exam: [...] 11/20/24 1232 DD/ 1227 TD/TT: 11/20/24 1227 Assistant Professor Of Radiology: Procedure Note Donotuseinterpreter, Image - 11/20/[address] [address] XRay Report Signed Patient: Clifford KennedyR#: [id number] 4 : 1945cct:[id number] Age/Sex: 79 / FADM Date: 11/20/24 Loc: HO.ED Attending Dr: Ordering Physician: Radha Cagle NP Date of Service: 11/20/24 Procedure(s): XR knee LT 4V Accession Number(s): [id number] cc: Name,Hill HERNANDEZ; Radha Cagle NP Reason [...] 11/20/24 1232 DD/ 1227 TD/TT: 11/20/24 1227 Assistant Professor Of Radiology: [facility] External Provider IMG XR PROCEDURES Final Result * CT Cervical Spine w/o Contrast (11/20/2024 10:26 AM EDT) Anatomical Region Laterality Modality Spine, C-spine Computed Tomogra phy 11/20/2024 10:2 6 AM EDT Narrative 11/20/2024 11:10 AM EDT [place] [address] CT Scan Report Signed Patient: Azeb Kennedy MR#: [id number] 4 : 1945 Acct:[id number] Age/Sex: 79 / F ADM Date: 11/20/24 Loc: HO.ED Attending Dr: Ordering Physician: Radha Cagle NP Date of Service: 11/20/24 Procedure(s): CT cervical spine wo IV con Accession Number(s): [id number] cc: Hill Dickson MD; Radha Cagle NP Report Number: [id number]: Total DLP = 367.00 mGy-cm Reason for [...] 11/20/24 1107 DD/ 1026 TD/TT: 11/20/24 1054 Assistant Professor Of Radiology: Procedure Note Trinity, Image - 11/20/[address] [place] [address] [address] Scan Report Signed Patient: Abraham Kennedy#: [id number] 4 : 8Acct:[id number] Age/Sex: 79 / FADM Date: 11/20/24 Loc: HO.ED Attending Dr: Ordering Physician: Radha Cagle NP Date of Service: 11/20/24 Procedure(s): CT cervical spine wo IV con Accession Number(s): [id number] cc: Name,Hill HERNANDEZ; Radha Cagle NP Report Number: [id number]: Total DLP = 367.00 mGy-cm Reason for [...] 11/20/24 1107 DD/ 1026 TD/TT: 11/20/24 1054 Assistant Professor Of Radiology: [facility] External Provider IMG CT PROCEDURES Final Result * CT Head w/o Contrast (11/20/2024 10:26 AM EDT) Anatomical Region Laterality Modality Head, Neck Computed Tomogra phy 11/20/2024 10:2 6 AM EDT Narrative 11/20/2024 11:05 AM EDT [address] [address] [address] Scan Report Signed Patient: Azeb Kenndey MR#: [id number] 4 : 1945 Acct:[id number] Age/Sex: 79 / F ADM Date: 11/20/24 Loc: HO.ED Attending Dr: Ordering Physician: Radha Cagle NP Date of Service: 11/20/24 Procedure(s): CT head/brain wo IV con Accession Number(s): [id number] cc: Yessi,Hill HERNANDEZ; Radha Cagle NP Report Number: [id number]: Total DLP = 760.00 mGy-cm Reason for [...] 11/20/24 1103 DD/ 1026 TD/TT: 11/20/24 1054 Assistant Professor Of Radiology: Procedure Note Donotuseinterpreter, Image - 11/20/[address] [place] [address] [address] Scan Report Signed Patient: Abraham Kennedy#: [id number] 4 : 8Acct:[id number] Age/Sex: 79 / FADM Date: 11/20/24 Loc: HO.ED Attending Dr: Ordering Physician: Radha Cagle NP Date of Service: 11/20/24 Procedure(s): CT head/brain wo IV con Accession Number(s): [id number] cc: Name,Hill HERNANDEZ; Radha Cagle NP Report Number: [id number]: Total DLP = 760.00 mGy-cm Reason for [...] 11/20/24 1103 DD/ 1026 TD/TT: 11/20/24 1054 Assistant Professor Of Radiology: [facility] External Provider IMG CT PROCEDURES Final Result * XR Shoulder 2+ Views Right (10/16/2024 10:50 AM EDT) Anatomical Region Laterality Modality Upper Extremities, Shoulder Right Radi ographic Imaging 10/16/2024 10:5 0 AM EDT Narrative 10/16/2024 11:41 [place] [address] XRay Report Signed Patient: Azeb Kennedy MR#: [id number] 4 : 1945 Acct:[id number] Age/Sex: 79 / F ADM Date: 10/16/24 Loc: HO.HHCX Attending Dr: Alejo Miranda MD Ordering Physician: Alejo Miranda MD Date of Service: 10/16/24 Procedure(s): XR shoulder RT min 2V Accession Number(s): [id number] cc: Alejo Miranda MD EXAMINATION: XR SHOULDER, [...] 10/16/24 1139 DD/ 1050 TD/TT: 10/16/24 1100 Assistant Professor Of Radiology: Procedure Note Donotuseinterpreter, Image - 10/16/[address] [address] XRay Report Signed Patient: Abraham Kennedy#: [id number] 4 : 8Acct:[id number] Age/Sex: 79 / FADM Date: 10/16/24 Loc: HO.HHCX Attending Dr: Alejo Miranda MD Ordering Physician: Alejo Miranda MD Date of Service: 10/16/24 Procedure(s): XR shoulder RT min 2V Accession Number(s): [id number] cc: Alejo Miranda MD EXAMINATION: XR SHOULDER, [...] 10/16/24 1139 DD/ 1050 TD/TT: 10/16/24 1100 Assistant Professor Of Radiology: Alejo Miranda MD IMG XR PROCEDURES Final Result * XR Knee 3 Views Right (10/16/2024 10:12 AM EDT) Anatomical Region Laterality Modality Lower Extremities, Knee Right [facility] 10/16/2024 10:1 2 AM EDT Narrative 10/16/2024 11:47 AM EDT [address] [address] XRay Report Signed Patient: Azeb Kennedy MR#: [id number] 4 : 1945 Acct:[id number] Age/Sex: 79 / F ADM Date: 10/16/24 Loc: .HHCX Attending Dr: Alejo Miranda MD Ordering Physician: Alejo Miranda MD Date of Service: 10/16/24 Procedure(s): XR knee RT 3V Accession Number(s): [id number] cc: Alejo Miranda MD EXAMINATION: XR KNEE, [...] 10/16/24 1144 DD/ 1012 TD/TT: 10/16/24 1100 Assistant Professor Of Radiology: Procedure Note Donotuseinterpreter, Image - 10/16/[address] [address] XRay Report Signed Patient: Clifford KennedyR#: [id number] 4 : 1945cct:[id number] Age/Sex: 79 / FADM Date: 10/16/24 Loc: HO.HHCX Attending Dr: Alejo Miranda MD Ordering Physician: Alejo Miranda MD Date of Service: 10/16/24 Procedure(s): XR knee RT 3V Accession Number(s): [id number] cc: Alejo Miranda MD EXAMINATION: XR KNEE, [...] 10/16/24 1144 DD/ 1012 TD/TT: 10/16/24 1100 Assistant Professor Of Radiology: Alejo Miranda MD IMG XR PROCEDURES Final Result * POCT COVID-19 Ag Ribeiro ID NOW (10/05/2024 9:15 AM EDT) Only the most recent of2 resultswithin the time period is included. Pathologist [facility] Coronavirus Antigen PCR Negative Negative, Indeterminate, None Detected, Invalid, Specimen unsatisfactory for evaluation, Weakly Positive, 2+ Swab 10/05/2024 9:15 AM EDT Vaishali Gee MD POINT OF CARE TEST ENTER/E DIT ORDERABLES Final Result * Influenza B (ID NOW Rapid Molecular) (10/01/2024 8:54 AM EDT) Influenza B Negative Negative, Indeterminate [facility] Swab 10/01/2024 8:54 AM EDT Alejo Miranda MD POINT OF CARE TEST ENTER/EDIT OR DERABLES Final Result Performing Organization Address City/[facility]/ZIP Co de Phone Number [facility] [address] [place] [phone] * Influenza A (ID NOW Rapid Molecular) (10/01/2024 8:54 AM EDT) Influenza A Negative Negative, Indeterminate [facility] Swab 10/01/2024 8:54 AM EDT Alejo Miranda MD POINT OF CARE TEST ENTER/EDIT OR DERABLES Final Result Performing Organization Address [facility] Co de Phone Number [facility] [address] [place] [phone] * Albumin, Random Urine W/Creatinine (06/11/2024 9:40 AM EDT) Creatinine, Urine 93.85 mg/dL [facility] Microalbumin Urine 25.0 mg/L [facility] Microalbum Creatinine Ratio Ur 26.6 <30 ug/mg cr [facility] Comment:Albumin/Creatinine R atio Reference Ranges: Normal: < 30 ug/mg creatinine Microalbuminuria: 30 - 300 ug/mg creatinineClinical Albuminuria: > 300 ug/mg creatinine Urine (Urine, Random) 06/11/2024 9:40 AM EDT 06/11/2024 11:25 AM EDT us Hill Dickson MD LAB URINE ORDERABLES Final Resul t Performing Organization Address [facility]/ZIP Co de Phone Number [facility] [address] [place] [address] [phone] * (ABNORMAL) Lipid Panel, Standard (06/11/2024 9:40 AM EDT) Triglycerides 144 <150 mg/dL [facility] Comment:Desirable Triglyceri de: less than 150 mg/dLBorderline High Triglyceride 150-199 mg/dLHigh Triglyceride: 200-499 mg/dLVery High Triglyceride: greater than or equal to 5OO mg/dL Cholesterol 195 <200 mg/dL [facility] Comment:Desirable Cholestero l: less than 200 mg/dLBorderline High Cholesterol: 200-239 mg/dLHigh Cholesterol: greater than 239 mg/dL LDL Cholesterol Calculated 115(H) <100 mg/dL [facility] Comment:Desirable LDL: less than 100 mg/dLNear Optimal/Above Optimal LDL: 110- 129 mg/dLBorderline High LDL: 130-159 mg/dLHigh LDL: 160-189 mg/dLVery High LDL: greater than or equal to 190 mg/dL HDL Cholesterol 52 >40 mg/dL [facility] Comment:Desirable HDL: great er than 40 mg/dL Note: This HDL assay may give artificially low results in patients with liver disease. Blood Venous blood specimen / Unknown 06/11/2024 9:40 AM EDT 06/11/2024 11:17 AM EDT us Hill Dickson MD LAB BLOOD ORDERABLES Final Resul t [facility] [address] [place] [address] [phone] * Diabetes Eye Exam (03/22/2023) Eye Exam [...] Most Recently Relevant to Health Maintenance Insurance [facility] INTERMEDIATE OPTIONS (HMO D-SNP) [address] [place] [phone] DENTAL [facility] Care Teams Cattle Feeder Relationship Specialty Start Date End Date Name, MD Hill [address] [place] [phone] PCP - General Family Medicine 03/15/15 [facility] 11/23/24
--- OUTSIDE RECORDS SUMMARY | 2024-12-17 17:43 | XMS_ITS ---
Author Name [place], [place]. Socorro Olson Address [address] [place] [address] Phone [phone] [facility] Care Team Providers Care Pewter Caster Name Role Phone Ruth Sen Unavailable [phone] Reason for Referral Not Available Allergies, adverse [...] 2021-12-05 No Data Available OneTouch Delica Plus [id number] Miscellaneous TEST BLOOD SUGAR THREE TIMES DAILY [...] (do not use for phone, instead use 15876-55) [facility] Type 2 diabetes mellitus wit h other specified complicationHyperlipidemia, unspecifiedEssential (primary) hypertensionMajor depressive disorder, recurrent, in remission, unspecifiedPersonal history of (healed) traumatic fracture New patient,40-59min; chronic exacerbation, 2 stable chronic or 1 acute illness add add modifier 95 for video (do not use for phone, instead use 23523-45) [facility] New patient,40-59min; chronic exacerbation, 2 stable chronic or 1 acute illness add add modifier 95 for video (do not use for phone, instead use 73784-16) [facility] New patient,40-59min; chronic exacerbation, 2 stable chronic or 1 acute illness add add modifier 95 for video (do not use for phone, instead use 48977-60) [facility] New patient,40-59min; chronic exacerbation, 2 stable chronic or 1 acute illness add add modifier 95 for video (do not use for phone, instead use 86522-93) [facility] New patient,40-59min; chronic exacerbation, 2 stable chronic or 1 acute illness add add modifier 95 for video (do not use for phone, instead use 99124-87) [facility], ([place]) 06/04/20[place] New patient,40-59min; chronic exacerbation, 2 stable chronic or 1 acute illness add add modifier 95 for video (do not use for phone, instead use 27548-56) [facility] ([place] 06/04/20[place] New patient,40-59min; chronic exacerbation, 2 stable chronic or 1 acute illness add add modifier 95 for video (do not use for phone, instead use 52529-36) [facility] Vital Signs Date of Collection Vitals 2022-06-04 10:06:44 Height - 157.48 cmWe ight - 68.04 kgBody Mass Index (BMI) - 27.44 kg/m2 Social History Social History Social History Observation Description Effec tive Time Current Smoking Status Never smoker 2024-11-2 3 Sex Female History of Procedures Procedures Service Procedure code Service date Servicing provider Phone# New patient,40-59min; chronic exacerbation, 2 stable chronic or 1 acute illness add add modifier 95 for video (do not use for phone, instead use 98276-98) 95245 2022-06-04 No Data Available No Data Availa [...] ilable Functional Status Functional Category Effective 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 [...]
--- OUTSIDE RECORDS SUMMARY | 2024-12-17 17:43 | XMS_ITS | Encounter Summary ---
Author Organization [employer] Address [address] [facility] 7t [place] [address] Care Team Providers Care Abstract Clerk Name Role Phone Name, Hill HERNANDEZ Primary Care Provider Reason for Visit * Reason Comments Med Refill Encounter Details Date Type Department Care Team ([facility] st Contact Info) Description 07/02/2024 Refill [facility] [address] [place], [place] [phone] Name, MD Hill [address] [place] [address] Social History Tobacco Use Types Packs/Day Years [...] Description 03/18/2025 9:45 AM EST Office Visit [facility] [address] [place] [address] Name, MD Hill [address] [place] [address] documented as of this encounter Visit Diagnoses Not on filedocumented in this encounter Additional Health Concerns Assessment Noted Time PHQ-9 Depression Total Score: 4 03/17/19 25 2:14 PM EST documented as of this encounter Care Teams Abstract Clerk Relationship Specialty Start Date End Date Name, MD Hill [address] [place] [address] PCP - General Family Medicine 03/15/15 [facility] 11/23/24 documented as of this encounter
--- OUTSIDE RECORDS SUMMARY | 2024-12-17 17:43 | XMS_ITS | Encounter Summary ---
Author Organization [employer] Address [address] [facility] 7t [place] [address] Care Team Providers Care Communication Lecturer Name Role Phone Name, Hill HERNANDEZ Primary Care Provider [phone] Encounter Details Date Type Department Care Team (Latest Contact Info) Description 04/21/2019 Abstract [facility] CONVERSIONS Dental, Provider, DDS Social History Tobacco [...] Description 03/18/2025 9:45 AM EST Office Visit [facility] MEDICINE [address] [place] [address] Name, MD Hill [address] [place] [address] documented as of this encounter Visit Diagnoses Not on filedocumented in this encounter Care Teams Communication Lecturer Relationship Specialty Start Date End Date Name, MD Hill [address] [place] [address] PCP - General Family Medicine 03/15/15 [facility] 11/23/24 documented as of this encounter
--- OUTSIDE RECORDS SUMMARY | 2024-12-17 17:43 | XMS_ITS | Encounter Summary ---
Author Organization [employer] Address [address] [facility] 7t [place] [address] Care Team Providers Care Marketing Summer Intern Name Role Phone Name, Hill HERNANDEZ Primary Care Provider [phone] Encounter Details Date Type Department Care Team (Latest Contact Info) Description 04/15/2018 Abstract [facility] CONVERSIONS Dental, Provider, DDS Social History Tobacco [...] 9:45 AM EST Office Visit [facility] MEDICINE [address] [place] [address] Name, MD Hill [address] [place] [address] documented as of this encounter Visit Diagnoses Not on filedocumented in this encounter Care Teams Marketing Summer Intern Relationship Specialty Start Date End Date Name, MD Hill [address] [place] [address] PCP - General Family Medicine 03/15/15 [facility] 11/23/24 documented as of this encounter
--- OUTSIDE RECORDS SUMMARY | 2024-12-17 17:43 | XMS_ITS | Encounter Summary ---
Author Organization [employer] Address [address] [facility] 7t [place] [address] Care Team Providers Care Siderographer Name Role Phone Name, Hill HERNANDEZ Primary Care Provider [phone] Reason for Visit * Reason Onset Date Comments Med Refill 12/17/2024 Encounter Details Date Type Department Care Team ([facility] st Contact Info) Description 12/17/2024 Telephone [facility] [address] [place], [place] [phone] Name, MD Hill [address] [place] [address] Med Refill Social History Tobacco Use Types Packs/Day Years [...] encounter Miscellaneous Notes * Telephone Encounter - Flip Vogt - 12/17/2024 1:02 PM EDT Patient came in on 12/14/24 for an appointment with pcp and was told she would get a itch cream prescribed. Patient went to pharmacy to get cream and no cream available to be picked up nor prescribedaccording to pt info given. documented in this encounter Plan of Treatment Upcoming Encounters Date Type Department Care Team ([facility] st Contact Info) Description 03/18/2025 9:45 AM EST Office Visit [facility]INE [address] [place] [address] Name, MD Hill [address] [place] [address] documented as of this encounter Visit Diagnoses Not on filedocumented in this encounter Additional Health Concerns Assessment Noted Time PHQ-9 Depression Total Score: 17 025 10:06 AM EDT documented as of this encounter Care Teams Siderographer Relationship Specialty Start Date End Date NameHill MD [address] [place] [address] PCP - General Family Medicine 03/15/15 [facility] 11/23/24 documented as of this encounter
--- OUTSIDE RECORDS SUMMARY | 2024-12-17 17:43 | XMS_ITS | Encounter Summary ---
Author Organization [employer] Address [address] [facility] 7t [place] [address] Care Team Providers Care Donor Services Specialist Name Role Phone Name, Hill HERNANDEZ Primary Care Provider [phone] Reason for Visit * Reason Onset Date Comments Pre Op 10/02/2023 Encounter Details Date Type Department Care Team ([facility] st Contact Info) Description 10/02/2023 Telephone [facility] MEDICINE [address] [place], [place] [phone] Name, MD Hill [address] [place] [address] Pre Op Social History Tobacco Use Types [...] No Surgeon's name: Tomás Hopkins Facility name: [facility] Surgeon's office number: [phone] Surgeon's office fax number: [phone] Contact name: Yohana documented in this encounter Plan of Treatment Upcoming Encounters Date Type Department Care Team (Late st Contact Info) Description 03/18/2025 9:45 AM EST Office Visit [facility] [address] [place] [address] Name, MD Hill [address] [place] [address] documented as of this encounter Visit Diagnoses Not on filedocumented in this encounter Additional Health Concerns Assessment Noted Time PHQ-9 Depression Total Score: 12 05/08/ 024 1:00 PM EDT documented as of this encounter Care Teams Donor Services Specialist Relationship Specialty Start Date End Date Name, MD Hill [address] [place] [address] PCP - General Family Medicine 03/15/15 [facility] 11/23/24 documented as of this encounter
--- OUTSIDE RECORDS SUMMARY | 2024-12-17 17:43 | XMS_ITS | Encounter Summary ---
Author Organization [employer] Address 75 [facility] 7t [place] [address] Care Team Providers Care Quebracho Tanner Name Role Phone Name, Hill HERNANDEZ Primary Care Provider [phone] Reason for Visit * Reason Onset Date Comments triage 07/19/2022 Encounter Details Date Type Department Care Team ([facility] st Contact Info) Description 07/19/2022 Telephone [facility] MEDICINE [address] [place], [place] [phone] Name, MD Hill [address] [place] [address] triage Social History Tobacco Use Types Packs/Day [...] worse The caller accepted this outcome speaks swedish documented in this encounter Plan of Treatment Upcoming Encounters Date Type Department Care Team (Late st Contact Info) Description 03/18/2025 9:45 AM EST Office Visit [facility] MEDICINE [address] [place] [address] Name, MD Hill [address] [place] [address] documented as of this encounter Visit Diagnoses Not on filedocumented in this encounter Additional Health Concerns Assessment Noted Time PHQ-9 Depression Total Score: 19 023 1:35 PM EDT documented as of this encounter Care Teams Quebracho Tanner Relationship Specialty Start Date End Date Name, MD Hill [address] [place] [address] PCP - General Family Medicine 03/15/15 [facility] 11/23/24 documented as of this encounter
--- OUTSIDE RECORDS SUMMARY | 2024-12-17 17:43 | XMS_ITS | Encounter Summary ---
Author Organization [employer] Address [address] [facility] 7t [place] [address] Care Team Providers Care Blind Cleaner Name Role Phone Name, Hill HERNANDEZ Primary Care Provider [phone] Encounter Details Date Type Department Care Team (Latest Contact Info) Description 01/06/2020 Abstract [facility] CONVERSIONS Dental, Provider, DDS Social History Tobacco [...] Description 03/18/2025 9:45 AM EST Office Visit [facility] [address] [place] [address] Name, MD Hill [address] [place] [address] documented as of this encounter Visit Diagnoses Not on filedocumented in this encounter Care Teams Blind Cleaner Relationship Specialty Start Date End Date Name, MD Hill [address] [place] [address] PCP - General Family Medicine 03/15/15 [facility] 11/23/24 documented as of this encounter
--- OUTSIDE RECORDS SUMMARY | 2024-12-17 17:43 | XMS_ITS | Encounter Summary ---
Author Organization [employer] Address [address] [facility] 7t [place] [address] Care Team Providers Care Fur Weigher Name Role Phone Name, Hill HERNANDEZ Primary Care Provider [phone] Reason for Visit * Reason Onset Date Comments Call Back Request 06/18/2024 Encounter Details Date Type Department Care Team ([facility] st Contact Info) Description 06/18/2024 Telephone [facility] MEDICINE [address] [place], [place] [phone] Name, MD Hill [address] [place] [address] Call Back Request Social History Tobacco Use [...] - 06/18/2024 3:17 PM EDT Tc from [place] with [facility] regarding ramelteon (Rozerem) 8 MG tablet requesting a call back from nurses to discuss alternative med. [phone] documented in this encounter Plan of Treatment Upcoming Encounters Date Type Department Care Team (Late st Contact Info) Description 03/18/2025 9:45 AM EST Office Visit [facility] MEDICINE [address] [place] [address] Name, MD Hill [address] [place] [address] documented as of this encounter Visit Diagnoses Not on filedocumented in this encounter Additional Health Concerns Assessment Noted Time PHQ-9 Depression Total Score: 4 03/17/19 25 2:14 PM EST documented as of this encounter Care Teams Fur Weigher Relationship Specialty Start Date End Date Name, MD Hill [address] [place] [address] PCP - General Family Medicine 03/15/15 [facility] 11/23/24 documented as of this encounter
--- OUTSIDE RECORDS SUMMARY | 2024-12-17 17:43 | XMS_ITS | Clinical Summary ---
Author Organization [address] [place] [address] Address [address] [place] [address] Phone Care Team Providers Care Reel Assembler Name Role Phone Gina Fonseca MD Primary [...] right leg BREAST REDUCTION 2009 Bilateral PROCEDURE: [place] BREAST REDUCTION Medical History Medical History Date Comments Unspecified essential hypertension DX:Unspecified essential hypertension DM type 2 (diabetes mellitus , type 2) ([facility] V24, [facility] V28) 12/24/2012 DX:DM type 2 (diabetes hailee itus, type 2) ([facility]) Family History Medical History Relation Name Comments Cataracts Father Glaucoma Father Breast cancer Mother 75 Breast cancer Sister 1 70 Blindness Neg Hx Macular degeneration Neg Hx Strabismus Neg Hx Relation Name Status Comments Daughter Alive HTN Father HI and DM Mother 75 Breast cancer Sister [...] PM EST Office Visit [facility] - [place] [address] [address] Vicente Pearce, DPM [address] [phone] Health Maintenance Due Date Last Done Comments [...] 2 diabetes mellitus without complications (CMS/HCC V24, CMS/[facility] V28) HEMOGLOBIN A1C Routine 06/04/2024 7:34 [...] Hemoglobin A1c (06/04/2024 7:34 AM EDT) Pathologist [facility] Hemoglobin A1C 6.6(H) <6.5 % LAB CHEMISTRY METHOD 06/04/2024 12:34 PM EDT [facility] Mean Bld Glu Estim. 143 mg/dL LAB CHEMISTRY METHOD 06/04/2024 12:34 PM EDT [facility] Blood Venous blood specimen / Unknown Venipuncture / Unknown 06/04/2024 7:34 AM EDT 06/04/2024 9:59 AM EDT Behzad Conway MD LAB BLOOD ORDERABLES Final Result [facility] [address] [place] [address], * (ABNORMAL) Comprehensive metabolic panel (06/04/2024 7:34 AM EDT) [facility] Sodium 139 133 - 145 mmol/L LAB CHEMISTRY METHOD 06/04/2024 10:53 AM [facility] Potassium 4.6 3.5 - 5.5 mmol/L LAB CHEMISTRY METHOD 06/04/2024 10:53 AM [facility] Chloride 105 96 - 110 mmol/L LAB CHEMISTRY METHOD 06/04/2024 10:53 AM [facility] CO2 30 21 - 32 mmol/L LAB CHEMISTRY METHOD 06/04/2024 10:53 AM [facility] Anion Gap 4 3 - 11 LAB CHEMISTRY METHOD 06/04/2024 10:53 AM [facility] Glucose 105(H) 70 - 100 mg/dL LAB CHEMISTRY METHOD 06/04/2024 10:53 AM [facility] BUN 18 5 - 25 mg/dL LAB CHEMISTRY METHOD 06/04/2024 10:53 AM [facility] Creatinine 0.74 0.50 - 1.10 mg/dL LAB CHEMISTRY METHOD 06/04/2024 10:53 AM [facility] eGFR 83 >=60 mL/min/1. 73m2 LAB CHEMISTRY METHOD 06/04/2024 10:53 AM [facility] Comment:Calculation based on the Chronic Kidney Disease Epidemiology Collaboration (CKD-EPI) equation refit without adjustment for race. BUN/Creatinine Ratio 24.3 LAB CHEMISTRY METHOD 06/04/2024 10:53 AM [facility] Calcium 9.2 8.5 - 10.5 mg/dL LAB CHEMISTRY METHOD 06/04/2024 10:53 AM [facility] AST (SGOT) 37 10 - 42 unit/L LAB CHEMISTRY METHOD 06/04/2024 10:53 AM [facility] ALT (SGPT) 38 10 - 60 unit/L LAB CHEMISTRY METHOD 06/04/2024 10:53 AM [facility] Alkaline Phosphatase 112 42 - 121 unit/L LAB CHEMISTRY METHOD 06/04/2024 10:53 AM [facility] Total Protein 7.3 6.0 - 8.0 g/dL LAB CHEMISTRY METHOD 06/04/2024 10:53 AM [facility] Albumin 3.7 3.2 - 5.0 g/dL LAB CHEMISTRY METHOD 06/04/2024 10:53 AM [facility] Total Bilirubin 0.4 0.0 - 1.4 mg/dL LAB CHEMISTRY METHOD 06/04/2024 10:53 AM [facility] Blood Venous blood specimen / Unknown Venipuncture / Unknown 06/04/2024 7:34 AM EDT 06/04/2024 9:59 AM EDT Behzad Conway MD LAB BLOOD ORDERABLES [facility] [address] [place] [address], * SCR MAMMO BI INCL CAD (08/11/2018 [...] C Screening (09/15/2012) Hepatitis C Screening abstracted [facility] Provider HEALTH MAINTENANCE Final Result from Last 3 Months or Most Recently Relevant to Health Maintenance Insurance [facility] Member Subscriber Plan / Payer (Ef fective 2023-Present) Name:Azeb Kennedy Relation to Subscriber:Self Name:Azeb Kennedy Payer ID:[id number] Group ID:[id number] Type:Not on file Address: [place] [address] [address] [phone] Care Teams Reel Assembler Relationship Specialty Start Date End Date Gina Fonseca MD [address] [place], [place] PCP - General Internal Medicine 10/16/21
--- OUTSIDE RECORDS SUMMARY | 2024-12-17 17:43 | XMS_ITS | Encounter Summary ---
Author Organization [facility] Address [address] [place] [phone] Care Team Providers Care Counter Sales Person Name Role Phone Gina Fonseca MD Primary Care Provider [phone] Encounter Details Date Type Department Care Team (Late st Contact Info) Description 06/10/2024 Lab Requisition [facility] - Main Lab [address] [facility] [place] [address] Behzad Conway MD [address] [place] [address] [phone] Anemia, unspecified Social History Tobacco Use Types [...] PM EST Office Visit Orthopedic Surgery - [place] [address] [phone] Vicente Pearce DPM 175 [facility] [address] [place] [address] documented as of this encounter Visit Diagnoses Diagnosis Anemia, unspecified documented in this encounter Care Teams Counter Sales Person Relationship Specialty Start Date End Date Gina Fonseca MD [address] [place], [place] PCP - General Internal Medicine 10/16/21 documented as of this encounter
--- OUTSIDE RECORDS SUMMARY | 2024-12-17 17:43 | XMS_ITS | Encounter Summary ---
Author Organization [facility] Address [address] [place] [address] Care Team Providers Care Info Specialist Name Role Phone Gina Fonseca MD Primary Care Provider [phone] Encounter Details Date Type Department Care Team (Late Contact Info) Description 06/04/2024 Lab Requisition [facility] - Main Lab 299 [facility] [facility] [address] Behzad Conway MD [address] [place] [address] [phone] Anemia, unspecified; Type 2 diabetes mellitus without [...] PM EST Office Visit Orth[facility] Surgery - [place] [address] [address] Vicente Pearce DPM [address] [address] documented as of this encounter Procedures Procedure Name Priority Date/Time Associated Diagnosis Comments COMPLETE BLOOD COUNT Routine 06/04/2024 7:34 AM EDT Anemia, unspecified Type 2 diabetes mellitus without complications (CMS/HCC V24, CMS/HCC V28) HEMOGLOBIN A1C Routine 06/04/2024 7:34 AM EDT Anemia, unspecified Type 2 diabetes mellitus without complications ([facility] V24, [facility] V28) COMPREHENSIVE METABOLIC PANEL Routine 06/04/2024 7:34 AM EDT Anemia, unspecified Type 2 diabetes mellitus without complications ([facility] V24, [facility] V28) documented in this encounter Results * (ABNORMAL) Hemoglobin A1c (06/04/2024 7:34 AM EDT) Pathologist [facility] Hemoglobin A1C 6.6(H) <6.5 % LAB CHEMISTRY METHOD 06/04/2024 12:34 PM EDT [facility] Mean Bld Glu Estim. 143 mg/dL LAB CHEMISTRY METHOD 06/04/2024 12:34 PM EDT [facility] Blood Venous blood specimen / Unknown Venipuncture / Unknown 06/04/2024 7:34 AM EDT 06/04/2024 9:59 AM EDT Behzad Conway MD LAB BLOOD ORDERABLES Final Result [facility] [address] [place] [address], * (ABNORMAL) Comprehensive metabolic panel (06/04/2024 7:34 AM EDT) [facility] Sodium 139 133 - 145 mmol/L [...] ORDERABLES Final Result [facility] [address] [place] [address], * (ABNORMAL) Complete blood count (06/04/2024 7:34 AM EDT) WBC 5.6 4.8 - 10.8 K/mcL LAB HEMETOLOGY METHOD 06/04/2024 10:31 AM [facility] RBC 4.10 3.80 - 4.80 M/mcL LAB HEMETOLOGY METHOD 06/04/2024 10:31 AM [facility] Hemoglobin 12.7 11.5 - 16.0 g/dL LAB HEMETOLOGY METHOD 06/04/2024 10:31 AM [facility] Hematocrit 39.9 35.0 - 47.0 % LAB HEMETOLOGY METHOD 06/04/2024 10:31 AM [facility] MCV 97.8 79.0 - 98.0 FL LAB HEMETOLOGY METHOD 06/04/2024 10:31 AM [facility] MCH 31.1 27.0 - 32.0 pcg LAB HEMETOLOGY METHOD 06/04/2024 10:31 AM [facility] MCHC 31.8(L) 32.0 - 37.0 g/dL LAB HEMETOLOGY METHOD 06/04/2024 10:31 AM [facility] RDW 13.2 11.0 - 15.0 [...] Final Result [facility] [address] [place] [address], documented in this encounter Visit Diagnoses Diagnosis Anemia, unspecified Type 2 diabetes mellitus without complications (CMS/HCC V24, CMS/HCC V28) documented in this encounter Care Teams Info Specialist Relationship Specialty Start Date End Date Gina Fonseca MD [address] [place] [address] PCP - General Internal Medicine 10/16/21 documented as of this encounter
--- OUTSIDE RECORDS SUMMARY | 2024-12-17 17:43 | XMS_ITS | Encounter Summary ---
Author Organization [employer] Address [address] [facility] 7t [place] [address] Care Team Providers Care District Administrative Assistant Name Role Phone Name, Hill HERNANDEZ Primary Care Provider [phone] Encounter Details Date Type Department Care Team (Latest Contact Info) Description 12/14/2024 Travel Social History Tobacco Use Types Packs/Day [...] Health Questionnaire-2 Score 5 12/14/2024 10:06 AM EDT Armando Tracy MA * Little interest or [...] Author Not at all 12/14/2024 10:06 AM EDT Livia Tracy MA * Thoughts that you would be better off or hurting yourself in some way Answer Date of Assessment Author Nearly every day 12/14/2024 10:06 AM EDT Livia Gary MA * Patient Health Questionnaire-9 Score Answer Date of Assessment Author 17 12/14/2024 10:06 AM EDT Livia Tracy MA * How difficult have these problems made it for you to do your work, take care of things at home, or get along with other people? Answer Date of Assessment Author Very difficult 12/14/2024 10:06 AM EDT Livia Tracy MA documented as of this encounter Plan of Treatment Upcoming Encounters Date Type Department Care Team (Late st Contact Info) Description 03/18/2025 9:45 AM EST Office Visit [facility] MEDICINE [address] [place] [address] Name, MD Hill [address] [place] [address] documented as of this encounter Visit Diagnoses Not on filedocumented in this encounter Additional Health Concerns Assessment Noted Time PHQ-9 Depression Total Score: 17 025 10:06 AM EDT documented as of this encounter Care Teams District Administrative Assistant Relationship Specialty Start Date End Date Name, MD Hill [address] [place] [address] PCP - General Family Medicine 03/15/15 [facility] 11/23/24 documented as of this encounter
--- OUTSIDE RECORDS SUMMARY | 2024-12-17 17:44 | XMS_ITS | Encounter Summary ---
Author Organization [employer] Address [address] [facility] 7t [place] [address] Care Team Providers Care Academic Manager Name Role Phone Name, Hill HERNANDEZ Primary Care Provider [phone] Reason for Visit * Reason Onset Date Comments requesting a call 09/04/2022 Encounter Details Date Type Department Care Team ([facility] st Contact Info) Description 09/04/2022 Telephone [facility] MEDICINE [address] [place] [address] [phone] Name, MD Hill [address] [place] [address] requesting a call Social History Tobacco Use [...] - 09/05/2022 2:46 PM EDT T/C to [phone] for below message through Integration Management id - [id number] for below message, pt. States she is all set, she does not has any question right now. Pt. Advised to give call to [facility] if any questions or concerns. * Telephone Encounter - Hemalatha Rodriguez - 09/04/2022 2:39 PM EDT Tc from pt requesting a call. Pt did not go in to detail and is aware of upcoming appointment. Please contact pt at [phone] (Dominican speaker) documented in this encounter Plan of Treatment Upcoming Encounters Date Type Department Care Team (Late st Contact Info) Description 03/18/2025 9:45 AM EST Office Visit [facility] MEDICINE [address] [place] [address] Name, MD Hill [address] [place] [address] documented as of this encounter Visit Diagnoses Not on filedocumented in this encounter Additional Health Concerns Assessment Noted Time PHQ-9 Depression Total Score: 19 023 1:35 PM EDT documented as of this encounter Care Teams Academic Manager Relationship Specialty Start Date End Date Name, MD Hill [address] [place] [address] PCP - General Family Medicine 03/15/15 [facility] 11/23/24 documented as of this encounter
--- OUTSIDE RECORDS SUMMARY | 2024-12-17 17:44 | XMS_ITS | Encounter Summary ---
Author Organization [employer] Address [address] [facility] 7t [place] [address] Care Team Providers Care Office Clinician Name Role Phone Name, Hill HERNANDEZ Primary Care Provider [phone] Reason for Visit * Reason Onset Date Comments Call Back Request 02/01/2023 Encounter Details Date Type Department Care Team ([facility] st Contact Info) Description 02/01/2023 Telephone [facility] MEDICINE [address] [place], [place] [phone] Name, MD Hill [address] [place] [address] Call Back Request Social History Tobacco Use [...] 2:16 PM EST T/C to pt. 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 Pt. Verbally agreed and understood. * Telephone Encounter - Aylin Duncan - 02/01/2023 3:37 PM EST Tc from pt requesting a call back in regards paperwork for AUTOMATIC PROFILE SANDER OPERATOR hours. documented in this encounter Plan of Treatment Upcoming Encounters Date Type Department Care Team (Late st Contact Info) Description 03/18/2025 9:45 AM EST Office Visit [facility] MEDICINE [address] [place] [address] Name, MD Hill [address] [place] [address] documented as of this encounter Visit Diagnoses Not on filedocumented in this encounter Additional Health Concerns Assessment Noted Time PHQ-9 Depression Total Score: 19 023 1:35 PM EDT documented as of this encounter Care Teams Office Clinician Relationship Specialty Start Date End Date NameHill MD [address] [place] [address] PCP - General Family Medicine 03/15/15 [facility] 11/23/24 documented as of this encounter
--- OUTSIDE RECORDS SUMMARY | 2024-12-17 17:44 | XMS_ITS | Encounter Summary ---
Author Organization [employer] Address [address] [facility] 7t [place] [address] Care Team Providers Care Dentist Private Practice Name Role Phone Name, Hill HERNANDEZ Primary Care Provider [phone] Reason for Visit * Reason Onset Date Comments Med Refill telephone call 10/20/2022 SPLICER OPERATOR Services 10/20/2022 The pt requested to have her SPLICER OPERATOR services reinstated by CHUYITA. I called to inform her, that she needs to contact her insurance [facility] to make the request, because the referral needs to go through them. I reached a voicemail, and left a msg with the above information. I asked her to contact me at ext [phone], if she has any questions. Encounter Details Date Type Department Care Team (Late st Contact Info) Description 10/20/2022 Refill [facility] MEDICINE 230 [place] [address] Name, MD Hill 230 [place] [address] Social History Tobacco Use Types Packs/Day Years [...] EDT The pt requested to have her SPLICER OPERATOR services reinstated by [facility]. I called to inform her, that she needs to contact her insurance [facility] to make the request, because the referral needs to go through them. I reached a voicemail, and left a msg with the above information. I asked her to contact me at ext [phone], if she has any questions. * Telephone Encounter - Hope Zora - 10/22/2022 10:20 AM EDT Pt walked in requesting a call from PCP or nurses, because she has a question about pmo consultant services and a form that her pcp signed and she has not hear anything from no one she doesn't specify exactly what she needs, she just wants the call. I told her to go to medical records she said they don't havethe form. Best # to call is [phone] documented in this encounter Plan of Treatment Upcoming Encounters Date Type Department Care Team (Late st Contact Info) Description 03/18/2025 9:45 AM EST Office Visit [facility] MEDICINE [address] [place] [address] Name, MD Hill [address] [place] [address] documented as of this encounter Visit Diagnoses Not on filedocumented in this encounter Additional Health Concerns Assessment Noted Time PHQ-9 Depression Total Score: 19 023 1:35 PM EDT documented as of this encounter Care Teams Dentist Private Practice Relationship Specialty Start Date End Date Name, MD Hill [address] [place] [address] PCP - General Family Medicine 03/15/15 [facility] 11/23/24 documented as of this encounter
--- OUTSIDE RECORDS SUMMARY | 2024-12-17 17:44 | XMS_ITS | Encounter Summary ---
Author Organization [employer] Address [address] [facility] 7t [place] [address] Care Team Providers Care Refrigeration System Installer Name Role Phone Name, Hill HERNANDEZ Primary Care Provider [phone] Reason for Visit * Reason Onset Date Comments ER Follow-up 05/20/2024 Encounter Details Date Type Department Care Team ([facility] st Contact Info) Description 05/20/2024 Telephone [facility] MEDICINE [address] [place], [place] [phone] Name, MD Hill [address] [place] [address] ER Follow-up Social History Tobacco Use Types [...] PM EDT Please obtain ED report from [facility] 05/19/24. Thank you. Triage call to Pt with [facility] Residential Sales Rep ID [id number]. Pt is called for follow up post [...] Pt is advised to call back to [facility] if needed after 05/22/24 and Pt [...] ED visit on : Date: 05/19/24 Hospital: [facility] Seen for: Fall Symptomatic Yes pain on right arm *if yes message should go to Triage Patient advised will forward to team nurse for follow up documented in this encounter Plan of Treatment Upcoming Encounters Date Type Department Care Team (Late st Contact Info) Description 03/18/2025 9:45 AM EST Office Visit [facility] MEDICINE [address] [place] [address] Name, MD Hill [address] [place] [address] documented as of this encounter Visit Diagnoses Not on filedocumented in this encounter Additional Health Concerns Assessment Noted Time PHQ-9 Depression Total Score: 4 03/17/19 25 2:14 PM EST documented as of this encounter Care Teams Refrigeration System Installer Relationship Specialty Start Date End Date Name, MD Hill [address] [place] [address] PCP - General Family Medicine 03/15/15 [facility] 11/23/24 documented as of this encounter
--- OUTSIDE RECORDS SUMMARY | 2024-12-17 17:44 | XMS_ITS | Encounter Summary ---
Author Organization [employer] Address [address] [facility] [address] 7t [place] [address] Care Team Providers Care Outpatient Physical Therapist Name Role Phone Name, Hill HERNANDEZ Primary Care Provider [phone] Encounter Details Date Type Department Care Team (Late st Contact Info) Description 02/01/2023 Telephone [facility] MEDICINE [address] [place], [place] [phone] Name, MD Hill [address] [place] [address] Social History Tobacco Use Types Packs/Day Years [...] Description 03/18/2025 9:45 AM EST Office Visit [facility] MEDICINE [address] [place] [address] Name, MD Hill [address] [place] [address] documented as of this encounter Visit Diagnoses Not on filedocumented in this encounter Additional Health Concerns Assessment Noted Time PHQ-9 Depression Total Score: 19 023 1:35 PM EDT documented as of this encounter Care Teams Outpatient Physical Therapist Relationship Specialty Start Date End Date Name, MD Hill [address] [place] [address] PCP - General Family Medicine 03/15/15 [facility] 11/23/24 documented as of this encounter
--- OUTSIDE RECORDS SUMMARY | 2024-12-17 17:44 | XMS_ITS | Encounter Summary ---
Author Organization [employer] Address [address] [facility] [address] 7t [place] [address] Care Team Providers Care Certified First Assistant Name Role Phone Name, Hill HERNANDEZ Primary Care Provider [phone] Encounter Details Date Type Department Care Team (Late st Contact Info) Description 01/21/2023 Telephone [facility] MEDICINE [address] [place], [place] [phone] Name, MD Hill [address] [place] [address] Social History Tobacco Use Types Packs/Day Years [...] Description 03/18/2025 9:45 AM EST Office Visit [facility] MEDICINE [address] [place] [address] Name, MD Hill [address] [place] [address] documented as of this encounter Visit Diagnoses Not on filedocumented in this encounter Additional Health Concerns Assessment Noted Time PHQ-9 Depression Total Score: 19 023 1:35 PM EDT documented as of this encounter Care Teams Certified First Assistant Relationship Specialty Start Date End Date Name, MD Hill [address] [place] [address] PCP - General Family Medicine 03/15/15 [facility] 11/23/24 documented as of this encounter
--- OUTSIDE RECORDS SUMMARY | 2024-12-17 17:44 | XMS_ITS | Encounter Summary ---
Author Organization [employer] Address [address] [place] [address] 7t [place] [address] Care Team Providers Care Furniture Manager Name Role Phone Name, Hill HERNANDEZ Primary Care Provider [phone] Encounter Details Date Type Department Care Team (Late st Contact Info) Description 07/30/2022 Abstract [facility] MEDICINE [address] [place] [address] [phone] Name, MD Hill [address] [place] [address] [phone] Social History Tobacco Use Types Packs/Day Years [...] 9:45 AM EST Office Visit [facility] MEDICINE [address] [place] [address] [phone] Name, MD Hill [address] [place] [address] [phone] documented as of this encounter Procedures Procedure [...] documented as of this encounter Care Teams Furniture Manager Relationship Specialty Start Date End Date Name, MD Hill [address] [place] [address] PCP - General Family Medicine 03/15/15 [facility] 11/23/24 documented as of this encounter
--- OUTSIDE RECORDS SUMMARY | 2024-12-17 17:44 | XMS_ITS | Patient Health Record ---
Author Organization [facility] Address [address] [place] [address] Care Team Providers Care Security Public Safety Officer Name Role Phone Name Hill HERNANDEZ Primary Care Provider James Kaur [phone] Allergies No Known Allergies Reason For Referral No Information Medications Medication SIG (Take, Route, Frequency, Duration) Notes Start Date End Date Status Amitriptyline HCl 25 MG 1 tablet at bedt juan josé Orally Once a day Active Tylenol 8 Hour Arthritis Pain 650 MG 2 tablets as needed Orally every 8 hrs Active Omeprazole 20 MG TAKE 1 CAPSULE BY [facility] DAILY IN THE MORNING Oral; Duration: 30 [...] Status Risk Notes Problem Colon cancer screening (948762411) Colon cancer screening (Z12.11) Active confirmed Problem Gastroesophageal reflux disease without esophagitis (816916085) Gastroesophageal reflux disease without esophagitis (K21.9) Active confirmed Problem Gastroesophageal reflux disease (351025694) Gastroesophageal reflux disease, esophagitis presence not specified (K21.9) Active confirmed Problem Constipation (87816911) Constipation, unspecified constipation type (K59.00) Active confirmed Encounters Encounter Location Date Provider Diagnosis [facility] [address] [place] [phone] 05/21/2024 James Easton [facility] [address] [place] [address] [place] [phone] 06/09/2024 James Easton [facility] [address] [place] [address] 11/02/2024 James Easton Plan Of Treatment Future Test Test Name Order Date COLONOSCOPY 12/02/2013 Next Appt Details Provider Name:James Easton , 03/16/2025 10:50:00 AM, [address], [address], [place], [id number], Insurance Providers Payer Name Payer Address Payer Phone Subscriber Number Group Number Insured Name Patient Relationship to Insured Coverage Start Date Coverage End Date [facility] [address] [place] [address] [id number] RAFFAELE CHUNG Self - patient is the insured Medical (General) History Medical History History ICD Code Tubular adenomas removed in 2004. She had negative followup colonoscopies in 06/2008 and in 02/2014. Diverticulosis GERD--EGD in 2004-small HH--no sig. esop hagitis nor Mccall's Denies CA,CVA,Lung disease,renal disease NIDDM Surgical History Surgery Date(Month/Year) Cholecystectomy Tubal ligation Hysterectomy with ? removal of one ovary Breast reduction Left foot 08/2021
--- OUTSIDE RECORDS SUMMARY | 2024-12-17 17:44 | XMS_ITS | Encounter Summary ---
Author Organization [employer] Address [address] [facility] 7t [place] [address] Care Team Providers Care Station Master Name Role Phone Name, Hill HERNANDEZ Primary Care Provider [phone] Reason for Visit * Reason Onset Date Comments Pre-op Visit 04/25/2023 Encounter Details Date Type Department Care Team ([facility] st Contact Info) Description 04/25/2023 Telephone [facility] MEDICINE [address] [place], [place] [phone] Name, MD Hill [address] [place] [address] Pre-op Visit Social History Tobacco Use Types [...] No Surgeon's name: [facility] name: [facility]'s office number: [phone] Surgeon's office fax number: [phone] Contact name (person you spoke with): Patricia Last office note from surgeon requested documented in this encounter Plan of Treatment Upcoming Encounters Date Type Department Care Team (Late st Contact Info) Description 03/18/2025 9:45 AM EST Office Visit [facility] MEDICINE [address] [place] [address] Name, MD Hill [address] [place] [address] documented as of this encounter Visit Diagnoses Not on filedocumented in this encounter Additional Health Concerns Assessment Noted Time PHQ-9 Depression Total Score: 0 03/07/19 24 8:57 AM EST documented as of this encounter Care Teams Station Master Relationship Specialty Start Date End Date Name, MD Hill [address] [place] [address] PCP - General Family Medicine 03/15/15 [facility] 11/23/24 documented as of this encounter
--- OUTSIDE RECORDS SUMMARY | 2024-12-17 17:44 | XMS_ITS | Encounter Summary ---
Author Organization [employer] Address [address] [facility] 7t [place] [address] Care Team Providers Care Flat Surfacer Jewel Name Role Phone Name, Hill HERNANDEZ Primary Care Provider [phone] Reason for Visit * Reason Onset Date Comments FYI 05/07/2023 Encounter Details Date Type Department Care Team ([facility] st Contact Info) Description 05/07/2023 Telephone [facility] MEDICINE 230 [place], [place] [phone] Name, MD Hill [address] [place] [address] Social History Tobacco Use Types Packs/Day Years [...] blood pressure and Charla rojas advised by quality analyst/technical writer that pt was seen yesterday and have an appt on . Any questions to Dennise [phone] documented in this encounter Plan of Treatment Upcoming Encounters Date Type Department Care Team (Late st Contact Info) Description 03/18/2025 9:45 AM EST Office Visit [facility] MEDICINE [address] [place] [address] Name, MD Hill [address] [place] [address] documented as of this encounter Visit Diagnoses Not on filedocumented in this encounter Additional Health Concerns Assessment Noted Time PHQ-9 Depression Total Score: 0 03/07/19 24 8:57 AM EST documented as of this encounter Care Teams Flat Surfacer Jewel Relationship Specialty Start Date End Date Name, MD Hill [address] [place] [address] PCP - General Family Medicine 03/15/15 [facility] 11/23/24 documented as of this encounter
== END 2024-12-17 14:33 | disposition home or self-care (01) ==
LOC: HO.HOS 13:48
PROVIDERS: Visit Provider Orthopaedic Surgery
DX: M25.311 Other instability, right shoulder (principal)
CPT/HCPCS: 99213; G2211

== ENCOUNTER → 2024-12-17 13:48 | Outpatient (BNVA) | payer OTHER, SELFPAY | PROVIDERS: Visit Provider Orthopaedic Surgery | DX: Z71.2 Person consulting for explanation of examination or test findings (principal); M25.311 Other instability, right shoulder | CPT/HCPCS: 99212 ==

== ENCOUNTER 2024-12-24 08:51 | Outpatient (AMB) | payer OTHER, SELFPAY ==
--- OUTSIDE RECORDS SUMMARY | 2024-06-09 06:10 | XMS_ITS ---
Author Organization [facility] Address [address] [place] [address] Care Team Providers Care Construction Director Name Role Phone Name Hill HERNANDEZ Primary Care Provider James Kaur [phone] REASON FOR VISIT Patient presents today for an upper endo Encounters Encounter Location Date Provider Diagnosis [facility] [address] [place] [address] 06/09/2024 James Easton Plan Of Treatment Next Appt Details Provider Name:James Easton , 03/16/2025 10:50:00 AM, [address], [address], [place], [address], Progress Notes * RAFFAELE CHUNG EDOB:[birth year] (79 yo F)Acc No.[id number]:06/09/2024 Progress Notes Patient: RAFFAELE CARR Provider: Curt Easton MD :1945 A ge:79 Y S ex:Female Date:06/09/2024 Address:[address] [facility] [address] [address], [place], [place] Pcp:Hill Dickson MD Subjective: * Chief Complaints: * 1 . Patient presents today for an upper endo. * Medical History: Objective: * Vitals: Assessment: Plan: * Treatment: * * The named appointment provid er may or may not be the originator of this progress note, and it is not deemed complete until electronically signed by the appointment provider. Sign off status: Pending * Provider: Curt Easton MD Date: 0 06/09/2024 Generated for Tejinder erickson/Andres/Nir on: 1 09:49 AM EDT
--- NOTE | 2024-12-24 09:11 | MHC.OFFVIS ---
Intake Visit Reasons: OV - Right RTC Tear - Discuss Surgery - Per Zacarias Intake Note: Azeb is a 79 year old female who presents today for a follow up of her right shoulder. She was last seen with Dr. Adames where she reported a fall about 6 months ago. Since the fall she has had progressively worsening shoulder pain and weakness. She has not tried formal physical therapy. Based on her MRI results, Dr. Adames has referred her to discuss possible surgery - TSA. Allergies No Known Allergies Allergy (Verified 12/17/24 14:13) HPI HPI OV - Right RTC Tear - Discuss Surgery - Per Zacarias: Details: Azeb is a 79 year old right hand dominant female who presents today for a follow up of her right shoulder. She was last seen with Dr. Adames where she reported a fall about 6 months ago. Since the fall she has had progressively worsening shoulder pain and weakness. She has not tried formal physical therapy. Based on her MRI results, Dr. Adames has referred her to discuss possible surgery - TSA. She reports that a game was falling from a top shelf last night & when she went to catch it she further injured the shoulder. She describes difficulty combing hair or raising arm to shoulder level. 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 Site was prepped using aseptic technique. Patient tolerated the procedure well. Shoulders, Hips, Knees, Shoulder Injection Large joint : Right Shoulder Coding Procedure code (CPT) selection complete Results Reviewed Results Reviewed: I personally reviewed the MR images. IMPRESSION: * Full-thickness tear of the supraspinatus and majority of the infraspinatus tendon * Mild subscapularis tendinosis. * Long head biceps tendon full-thickness tear and distal retraction. * Posterior labral degenerative fraying/tearing. *Mild glenohumeral arthritis. Small-moderate effusion. Assessment & Plan Assessment & Plan (1) Rotator cuff insufficiency of right shoulder: Code(s): M25.311 - Other instability, right shoulder Category: Medical Plan: Right RTC arthropathy. Large retracted RTC tear with minimal atrophy but I think repair would not be possible. I discussed this with her and offered her the possibility of rTSA. She has not had injections and I recommend injection at this time. She is going to [place] and will follow up with me when she rteturns in about 3 months. (2) Diabetes: Code(s): E11.9 - Type 2 diabetes mellitus without complications Category: Medical Plan: Informed of the hyperglycemic effects of steroids Coding Level of Care Code Est Pt Level 4 (07938) Diagnoses Rotator cuff insufficiency of right shoulder M25.311 Diabetes E11.9 CPT Codes Shoulders, Hips, Knees, - Shoulder Injection Large joint : Right Shoulder ([id number])
--- OUTSIDE RECORDS SUMMARY | 2024-12-24 09:49 | XMS_ITS ---
Author Name [place], [place]. Socorro Olson Address [address] [place] [address] Phone [phone] [facility] Care Team Providers Care Mediator Name Role Phone Ruth Sen Unavailable [phone] Reason for Referral Not Available Allergies, adverse [...] 2021-12-05 No Data Available OneTouch Delica Plus [id number] Miscellaneous TEST BLOOD SUGAR THREE TIMES DAILY [...] (do not use for phone, instead use [id number]) [facility] Type 2 diabetes mellitus wit h other specified complicationHyperlipidemia, unspecifiedEssential (primary) hypertensionMajor depressive disorder, recurrent, in remission, unspecifiedPersonal history of (healed) traumatic fracture New patient,40-59min; chronic exacerbation, 2 stable chronic or 1 acute illness add add modifier 95 for video (do not use for phone, instead use 55061-62) [facility] New patient,40-59min; chronic exacerbation, 2 stable chronic or 1 acute illness add add modifier 95 for video (do not use for phone, instead use 07197-06) [facility] [place] New patient,40-59min; chronic exacerbation, 2 stable chronic or 1 acute illness add add modifier 95 for video (do not use for phone, instead use 53797-93) [facility] [place] New patient,40-59min; chronic exacerbation, 2 stable chronic or 1 acute illness add add modifier 95 for video (do not use for phone, instead use 19061-39) [facility] [place]20[place] New patient,40-59min; chronic exacerbation, 2 stable chronic or 1 acute illness add add modifier 95 for video (do not use for phone, instead use 27640-54) [facility] [place] New patient,40-59min; chronic exacerbation, 2 stable chronic or 1 acute illness add add modifier 95 for video (do not use for phone, instead use 96728-36) [facility] [place] New patient,40-59min; chronic exacerbation, 2 stable chronic or 1 acute illness add add modifier 95 for video (do not use for phone, instead use 65969-77) [facility] [place] 06[place]2022 Vital Signs Date of Collection Vitals 2022-06-04 10:06:44 Height - 157.48 cmWe ight - 68.04 kgBody Mass Index (BMI) - 27.44 kg/m2 Social History Social History Social History Observation Description Effec tive Time Current Smoking Status Never smoker 2024-11-3 0 Sex Female History of Procedures Procedures Service Procedure code Service date Servicing provider Phone# New patient,40-59min; chronic exacerbation, 2 stable chronic or 1 acute illness add add modifier 95 for video (do not use for phone, instead use 04451-40) [id number] 2022-06-04 No Data Available No Data Availa [...] ilable Functional Status Functional Category Effective Dates SILK SCREEN FRAME ASSEMBLER assists with cooking, cl eaning and laundry. [...]
--- OUTSIDE RECORDS SUMMARY | 2024-12-24 09:49 | XMS_ITS | Encounter Summary ---
Author Organization [facility] Address [address] [place] [address] Care Team Providers Care Fish Hatchery Man Name Role Phone Gina Fonseca MD Primary Care Provider [phone] Encounter Details Date Type Department Care Team (Late Contact Info) Description 06/04/2024 Lab Requisition [facility] - Main Lab [address] [facility] [place] [address] Behzad Conway MD [address] [place] [address] Anemia, unspecified; Type 2 diabetes mellitus without [...] PM EST Office Visit Orth[facility] - [place] [address] [facility] [address] [place] [phone] Vicente Pearce DPM [address] [place] [phone] documented as of this encounter Procedures Procedure Name Priority Date/Time Associated Diagnosis Comments COMPLETE BLOOD COUNT Routine 06/04/2024 7:34 AM EDT Anemia, unspecified Type 2 diabetes mellitus without complications (CMS/HCC V24, CMS/HCC V28) HEMOGLOBIN A1C Routine 06/04/2024 7:34 AM EDT Anemia, unspecified Type 2 diabetes mellitus without complications ([facility] V24, [facility] V28) COMPREHENSIVE METABOLIC PANEL Routine 06/04/2024 7:34 AM EDT Anemia, unspecified Type 2 diabetes mellitus without complications ([facility] V24, [facility] V28) documented in this encounter Results * (ABNORMAL) Hemoglobin A1c (06/04/2024 7:34 AM EDT) Pathologist [facility] Hemoglobin A1C 6.6(H) <6.5 % LAB CHEMISTRY METHOD 06/04/2024 12:34 PM EDT [facility] Mean Bld Glu Estim. 143 mg/dL LAB CHEMISTRY METHOD 06/04/2024 12:34 PM EDT [facility] Blood Venous blood specimen / Unknown Venipuncture / Unknown 06/04/2024 7:34 AM EDT 06/04/2024 9:59 AM EDT Behzad Conway MD LAB BLOOD ORDERABLES Final Result [facility] [address] [place] [address], * (ABNORMAL) Comprehensive metabolic panel (06/04/2024 7:34 AM EDT) [facility] Sodium 139 133 - 145 mmol/L LAB CHEMISTRY METHOD 06/04/2024 10:53 AM EDT [facility] Potassium 4.6 3.5 - 5.5 mmol/L LAB CHEMISTRY METHOD 06/04/2024 10:53 AM EDT [facility] Chloride 105 96 - 110 mmol/L LAB CHEMISTRY METHOD 06/04/2024 10:53 AM EDT [facility] CO2 30 21 - 32 [...] LAB CHEMISTRY METHOD 06/04/2024 10:53 AM EDT [facility] Blood Venous blood specimen / Unknown Venipuncture / Unknown 06/04/2024 7:34 AM EDT 06/04/2024 9:59 AM EDT Behzad Conway MD LAB BLOOD ORDERABLES Final Result [facility] [address] [place] [address], * (ABNORMAL) Complete blood count (06/04/2024 7:34 AM EDT) WBC 5.6 4.8 - 10.8 K/mcL LAB HEMETOLOGY METHOD 06/04/2024 10:31 AM [facility] RBC 4.10 3.80 - 4.80 M/mcL LAB HEMETOLOGY METHOD 06/04/2024 10:31 AM [facility] Hemoglobin 12.7 11.5 - 16.0 g/dL LAB HEMETOLOGY METHOD 06/04/2024 10:31 AM [facility] Hematocrit 39.9 35.0 - 47.0 % LAB HEMETOLOGY METHOD 06/04/2024 10:31 AM [facility] MCV 97.8 79.0 - 98.0 FL LAB HEMETOLOGY METHOD 06/04/2024 10:31 AM EDT [facility] MCH 31.1 27.0 - 32.0 pcg LAB HEMETOLOGY METHOD 06/04/2024 10:31 AM [facility] MCHC 31.8(L) 32.0 - 37.0 g/dL LAB HEMETOLOGY METHOD 06/04/2024 10:31 AM [facility] RDW 13.2 11.0 - 15.0 % LAB HEMETOLOGY METHOD 06/04/2024 10:31 AM EDT [facility] Platelets 200 130 - 400 K/mcL LAB HEMETOLOGY METHOD 06/04/2024 10:31 AM EDT [facility] MPV 11.4(H) 7.0 - 11.0 FL LAB HEMETOLOGY METHOD 06/04/2024 10:31 AM EDT [facility] NRBC 0.0 <1.0 % LAB HEMETOLOGY METHOD 06/04/2024 10:31 AM EDT [facility] NRBC Absolute 0.00 <0.10 K/mcL LAB HEMETOLOGY METHOD 06/04/2024 10:31 AM EDT [facility] Blood Venous blood specimen / Unknown Venipuncture / Unknown 06/04/2024 7:34 AM EDT 06/04/2024 9:59 AM EDT us Behzad Conway MD LAB BLOOD ORDERABLES Final Result [facility] [address] [place] [address], documented in this encounter Visit Diagnoses Diagnosis Anemia, unspecified Type 2 diabetes mellitus without complications (CMS/HCC V24, CMS/HCC V28) documented in this encounter Care Teams Fish Hatchery Man Relationship Specialty Start Date End Date Gina Fonseca MD [address] [place] [address] PCP - General Internal Medicine 10/16/21 documented as of this encounter
--- OUTSIDE RECORDS SUMMARY | 2024-12-24 09:49 | XMS_ITS | Encounter Summary ---
Author Organization [facility] Address [address] [place] [address] Care Team Providers Care Office Helper Clerical Name Role Phone Gina Fonseca MD Primary Care Provider [phone] Encounter Details Date Type Department Care Team (Late Contact Info) Description 06/10/2024 Lab Requisition [facility] [address] [facility] [place] [address] Behzad Conway MD [address] [place] [address] Anemia, unspecified Social History Tobacco Use Types [...] PM EST Office Visit Orthopedic Surgery - [place] [address] [place] [address] [address] [place] [phone] Vicente Pearce, DPM [address] [place] [phone] documented as of this encounter Visit Diagnoses Diagnosis Anemia, unspecified documented in this encounter Care Teams Office Helper Clerical Relationship Specialty Start Date End Date Gina Fonseca MD [address] [place], [place] PCP - General Internal Medicine 10/16/21 documented as of this encounter
--- OUTSIDE RECORDS SUMMARY | 2024-12-24 09:50 | XMS_ITS | Encounter Summary ---
Author Organization [employer] Address [address] [facility] 7t [place] [address] Care Team Providers Care Cell Liner Name Role Phone Name, Hill HERNANDEZ Primary Care Provider [phone] Encounter Details Date Type Department Care Team ([facility] Contact Info) Description 03/26/2022 Orders Only [facility] [address] [place] [address] Jane Oneill LPN Social History Tobacco Use [...] Description 03/18/2025 9:45 AM EST Office Visit [facility] [address] [place] [address] Name, MD Hill [address] [place] [address] documented as of this encounter Visit Diagnoses Not on filedocumented in this encounter Care Teams Cell Liner Relationship Specialty Start Date End Date Name, MD Hill [address] [place] [address] PCP - General Family Medicine 03/15/15 [facility] 11/23/24 documented as of this encounter
--- OUTSIDE RECORDS SUMMARY | 2024-12-24 09:50 | XMS_ITS | Encounter Summary ---
Author Organization [employer] Address [address] [facility] 7t [place] [address] Care Team Providers Care Contact Center Specialist Name Role Phone Name, Hill HERNANDEZ Primary Care Provider [phone] Reason for Visit * Reason Onset Date Comments Call Back Request 02/01/2023 Encounter Details Date Type Department Care Team ([facility] st Contact Info) Description 02/01/2023 Telephone [facility] [address] [place], [place] [phone] Name, MD Hill [address] [place] [address] Call Back Request Social History Tobacco Use [...] 2:16 PM EST T/C to pt. Through [employer] id - [id number] for below message to inform submit paperwork regarding LAW FIRM PARTNER hours at medical records/ forms dept. Pt. Verbally agreed and understood. * Telephone Encounter - Aylin Duncan - 02/01/2023 3:37 PM EST Tc from pt requesting a call back in regards paperwork for LAW FIRM PARTNER hours. documented in this encounter Plan of Treatment Upcoming Encounters Date Type Department Care Team (Late st Contact Info) Description 03/18/2025 9:45 AM EST Office Visit [facility] [address] [place] [phone] Name, MD Hill [address] [place] [address] documented as of this encounter Visit Diagnoses Not on filedocumented in this encounter Additional Health Concerns Assessment Noted Time PHQ-9 Depression Total Score: 19 023 1:35 PM EDT documented as of this encounter Care Teams Contact Center Specialist Relationship Specialty Start Date End Date NameHill MD [address] [place] [address] PCP - General Family Medicine 03/15/15 [facility] 11/23/24 documented as of this encounter
--- OUTSIDE RECORDS SUMMARY | 2024-12-24 09:50 | XMS_ITS | Encounter Summary ---
Author Organization [employer] Address [address] [facility] 7t [place] [address] Care Team Providers Care Taximeter Repairer Name Role Phone Name, Hill HERNANDEZ Primary Care Provider [phone] Reason for Visit * Reason Onset Date Comments Med Refill telephone call 10/20/2022 PLANT TECHNICAL SPECIALIST Services 10/20/2022 The pt requested to have her PLANT TECHNICAL SPECIALIST services reinstated by CHUYITA. I called to inform her, that she needs to contact her insurance [facility] to make the request, because the referral needs to go through them. I reached a voicemail, and left a msg with the above information. I asked her to contact me at ext [phone], if she has any questions. Encounter Details Date Type Department Care Team (Late st Contact Info) Description 10/20/[address] [facility] [address] [place] [address] Name, MD Hill [address] [place] [address] Social History Tobacco Use Types Packs/Day Years [...] EDT The pt requested to have her PLANT TECHNICAL SPECIALIST services reinstated by CH[facility]. I called to inform her, that she needs to contact her insurance [facility] to make the request, because the referral needs to go through them. I reached a voicemail, and left a msg with the above information. I asked her to contact me at ext [phone], if she has any questions. * Telephone Encounter - Hope Zora - 10/22/2022 10:20 AM EDT Pt walked in requesting a call from PCP or nurses, because she has a question about treasury manager services and a form that her pcp signed and she has not hear anything from no one she doesn't specify exactly what she needs, she just wants the call. I told her to go to medical records she said they don't havethe form. Best # to call is [phone] documented in this encounter Plan of Treatment Upcoming Encounters Date Type Department Care Team (Late st Contact Info) Description 03/18/2025 9:45 AM EST Office [address] [facility] [address] [place] [address] Name, MD Hill [address] [place] [address] documented as of this encounter Visit Diagnoses Not on filedocumented in this encounter Additional Health Concerns Assessment Noted Time PHQ-9 Depression Total Score: 19 023 1:35 PM EDT documented as of this encounter Care Teams Taximeter Repairer Relationship Specialty Start Date End Date Name, MD Hill [address] [place] [address] PCP - General Family Medicine 03/15/15 [facility] 11/23/24 documented as of this encounter
--- OUTSIDE RECORDS SUMMARY | 2024-12-24 09:50 | XMS_ITS | Encounter Summary ---
Author Organization [employer] Address [address] [facility] 7t [place] [address] Care Team Providers Care Stone Belt Sander Name Role Phone Name, Hill HERNANDEZ Primary Care Provider [phone] Reason for Visit * Reason Onset Date Comments requesting a call 09/04/2022 Encounter Details Date Type Department Care Team ([facility] st Contact Info) Description 09/04/2022 Telephone [facility]INE [address] [place] [phone] Name, MD Hill [address] [place] [address] requesting a call Social History Tobacco Use [...] - 09/05/2022 2:46 PM EDT T/C to [phone] for below message through [employer] id - [id number] for below message, pt. States she is all set, she does not has any question right now. Pt. Advised to give call to [facility] if any questions or concerns. * Telephone Encounter - Hemalatha Rodriguez - 09/04/2022 2:39 PM EDT Tc from pt requesting a call. Pt did not go in to detail and is aware of upcoming appointment. Please contact pt at [phone] (Senegalese speaker) documented in this encounter Plan of Treatment Upcoming Encounters Date Type Department Care Team (Late st Contact Info) Description 03/18/2025 9:45 AM EST Office Visit [facility] [address] [place] [address] Name, MD Hill [address] [place] [address] documented as of this encounter Visit Diagnoses Not on filedocumented in this encounter Additional Health Concerns Assessment Noted Time PHQ-9 Depression Total Score: 19 023 1:35 PM EDT documented as of this encounter Care Teams Stone Belt Sander Relationship Specialty Start Date End Date Name, MD Hill [address] [place] [address] PCP - General Family Medicine 03/15/15 [facility] 11/23/24 documented as of this encounter
--- OUTSIDE RECORDS SUMMARY | 2024-12-24 09:50 | XMS_ITS | Encounter Summary ---
Author Organization [employer] Address [address] [place] [address] 7t [place] [address] Care Team Providers Care Certified Surgical Technologist Name Role Phone Name, Hill HERNANDEZ Primary Care Provider [phone] Encounter Details Date Type Department Care Team (Late st Contact Info) Description 07/30/2022 Abstract [facility]INE [address] [place] [address] [phone] Name, MD Hill [address] [place] [address] [phone] Social History Tobacco Use Types Packs/Day Years [...] Description 03/18/2025 9:45 AM EST Office Visit [facility] [address] [place] [address] [phone] Name, MD Hill [address] [place] [address] [phone] documented as of this encounter Procedures Procedure [...] as of this encounter Care Teams Certified Surgical Technologist Relationship Specialty Start Date End Date Name, MD Hill [address] [place] [address] PCP - General Family Medicine 03/15/15 [facility] 11/23/24 documented as of this encounter
--- OUTSIDE RECORDS SUMMARY | 2024-12-24 09:50 | XMS_ITS ---
-Clear without pneumothorax. CT/CT cervical spine wo IV con IMPRESSION: 1. No CT evidence of acute cervical spine fracture or injury. 2. Moderate to severe degenerative spondylosis most significant at C5-C6. Electronically signed by: Indra Carter MD 11/20/2024 11:07 AM EDT RP Dictated By: Indra Carter MD Signed By: <Electronically signed by Indra Cartre MD in OV> 11/20/24 1107 DD/ 1026 TD/TT: 11/20/24 1054 Speech Coach: Procedure Note Donotuseinterpreter, Image - 11/20/[address] [place] [address] [address] Scan Report Signed Patient: Abraham Kennedy#: [id number] 4 : 8Acct:[id number] Age/Sex: 79 / FADM Date: 11/20/24 Loc: HO.ED Attending Dr: Ordering Physician: Radha Cagle NP Date of Service: 11/20/24 Procedure(s): CT cervical spine wo IV con Accession Number(s): [id number] cc: Hill Dickson MD; Radha Cagle NP Report Number: [id number]: Total DLP = 367.00 mGy-cm Reason for [...] 11/20/24 1107 DD/ 1026 TD/TT: 11/20/24 1054 Speech Coach: us [facility] External Provider IMG CT PROCEDURES Final Result * CT Head w/o Contrast (11/20/2024 10:26 AM EDT) Anatomical Region Laterality Modality Head, Neck Computed Tomogra phy 11/20/2024 10:2 6 AM EDT Narrative 11/20/2024 11:05 AM EDT [address] [place] [address] CT Scan Report Signed Patient: Azeb Kennedy MR#: [id number] 4 : 1945 Acct:[id number] Age/Sex: 79 / F ADM Date: 11/20/24 Loc: HO.ED Attending Dr: Ordering Physician: Radha Cagle NP Date of Service: 11/20/24 Procedure(s): CT head/brain wo IV con Accession Number(s): [id number] cc: Name,Hill HERNANDEZ; Radha Cagle NP Report Number: [id number]: Total DLP = 760.00 mGy-cm Reason for [...] semiovale and dominguez radiata. Old lacunar infarct, Mercedes right internal capsule, basal ganglia. Lockhart-white matter [...] 11/20/24 1103 DD/ 1026 TD/TT: 11/20/24 1054 Speech Coach: Procedure Note Donotuseinterpreter, Image - 11/20/[address] [place] [address] [address] Scan Report Signed Patient: Abraham Kennedy#: [id number] 4 : 8Acct:[id number] Age/Sex: 79 / FADM Date: 11/20/24 Loc: HO.ED Attending Dr: Ordering Physician: Radha Cagle NP Date of Service: 11/20/24 Procedure(s): CT head/brain wo IV con Accession Number(s): [id number] cc: Name,Hill HERNANDEZ; Radha Cagle NP Report Number: [id number]: Total DLP = 760.00 mGy-cm Reason for [...] 11/20/24 1103 DD/ 1026 TD/TT: 11/20/24 1054 Speech Coach: [facility] External Provider IMG CT PROCEDURES Final Result * XR Shoulder 2+ Views Right (10/16/2024 10:50 AM EDT) Anatomical Region Laterality Modality Upper Extremities, Shoulder Right Radi ographic Imaging 10/16/2024 10:5 0 AM EDT Narrative 10/16/2024 11:41 AM EDT [address] [address] XRay Report Signed Patient: Azeb Kennedy MR#: [id number] 4 : 1945 Acct:[id number] Age/Sex: 79 / F ADM Date: 10/16/24 Loc: HO.HHCX Attending Dr: Alejo Miranda MD Ordering Physician: Alejo Miranda MD Date of Service: 10/16/24 Procedure(s): XR shoulder RT min 2V Accession Number(s): [id number] cc: Alejo Miranda MD EXAMINATION: XR SHOULDER, [...] 10/16/24 1139 DD/ 1050 TD/TT: 10/16/24 1100 Speech Coach: Procedure Note Donotuseinterpreter, Image - 10/16/[address] [address] XRay Report Signed Patient: Abraham Kennedy#: [id number] 4 : 8Acct:[id number] Age/Sex: 79 / FADM Date: 10/16/24 Loc: HO.HHCX Attending Dr: Alejo Miranda MD Ordering Physician: Alejo Miranda MD Date of Service: 10/16/24 Procedure(s): XR shoulder RT min 2V Accession Number(s): [id number] cc: Alejo Miranda MD EXAMINATION: XR SHOULDER, [...] 10/16/24 1139 DD/ 1050 TD/TT: 10/16/24 1100 Speech Coach: Alejo Miranda MD IMG XR PROCEDURES Final Result * XR Knee 3 Views Right (10/16/2024 10:12 AM EDT) Anatomical Region Laterality Modality Lower Extremities, Knee Right Radiogra phic Imaging 10/16/2024 10:1 2 AM EDT Narrative 10/16/2024 11:47 AM EDT [address] [address] XRay Report Signed Patient: Azeb Kennedy MR#: [id number] 4 : 1945 Acct:[id number] Age/Sex: 79 / F ADM Date: 10/16/24 [facility]: Alejo Miranda MD Ordering Physician: Alejo Miranda MD Date of Service: 10/16/24 Procedure(s): XR knee RT 3V Accession Number(s): [id number] cc: Alejo Miranda MD EXAMINATION: XR KNEE, [...] 10/16/24 1144 DD/ 1012 TD/TT: 10/16/24 1100 Speech Coach: Procedure Note Donottamicainterpreter, Image - 08/22/[address] [address] XRay Report Signed Patient: Abraham Kennedy#: [id number] 4 : 8Acct:[id number] Age/Sex: 79 / FADM Date: 10/16/24 Loc: HO.HHCX Attending Dr: Alejo Miranda MD Ordering Physician: Aljeo Miranda MD Date of Service: 10/16/24 Procedure(s): XR knee RT 3V Accession Number(s): [id number] cc: Alejo Miranda MD EXAMINATION: XR KNEE, [...] 10/16/24 1144 DD/ 1012 TD/TT: 10/16/24 1100 Speech Coach: Alejo Miranda MD IMG XR PROCEDURES Final [...] AM EDT) Influenza B Negative Negative, Indeterminate [facility] Swab 10/01/2024 8:54 AM EDT Alejo Miranda MD POINT OF CARE TEST ENTER/EDIT OR DERABLES Final Result Performing Organization Address [facility] de Phone Number [facility] [address] [place] [phone] * Influenza A (ID NOW Rapid Molecular) (10/01/2024 8:54 AM EDT) Influenza A Negative Negative, Indeterminate [facility] Swab 10/01/2024 8:54 AM EDT Alejo Miranda MD POINT OF CARE TEST ENTER/EDIT OR DERABLES Final Result Performing Organization Address [facility] de Phone Number [facility] [address] [place] [phone] * Albumin, Random Urine W/Creatinine (06/11/2024 9:40 AM EDT) Creatinine, Urine 93.85 mg/dL [facility] Microalbumin Urine 25.0 mg/L [facility] Microalbum Creatinine Ratio Ur 26.6 <30 ug/mg cr [facility] Comment:Albumin/Creatinine R atio Reference Ranges: Normal: < 30 ug/mg creatinine Microalbuminuria: 30 - 300 ug/mg creatinineClinical Albuminuria: > 300 ug/mg creatinine Urine (Urine, Random) 06/11/2024 9:40 AM EDT 06/11/2024 11:25 AM EDT us Hill Dickson MD LAB URINE ORDERABLES Final Resul t Performing Organization Address [facility] de Phone Number [facility] [address] [place] [phone] * (ABNORMAL) Lipid Panel, Standard (06/11/2024 9:40 AM EDT) Triglycerides 144 <150 mg/dL [facility] Comment:Desirable Triglyceri de: less than 150 mg/dLBorderline High Triglyceride 150-199 mg/dLHigh Triglyceride: 200-499 mg/dLVery High Triglyceride: greater than or equal to 5OO mg/dL Cholesterol 195 <200 mg/dL [facility] Comment:Desirable Cholestero l: less than 200 mg/dLBorderline High Cholesterol: 200-239 mg/dLHigh Cholesterol: greater than 239 mg/dL LDL Cholesterol Calculated 115(H) <100 mg/dL [facility] Comment:Desirable LDL: less than 100 mg/dLNear Optimal/Above Optimal LDL: 110- 129 mg/dLBorderline High LDL: 130-159 mg/dLHigh LDL: 160-189 mg/dLVery High LDL: greater than or equal to 190 mg/dL HDL Cholesterol 52 >40 mg/dL [facility] Comment:Desirable HDL: great er than 40 mg/dL Note: This HDL assay may give artificially low results in patients with liver disease. Blood Venous blood specimen / Unknown 06/11/2024 9:40 AM EDT 06/11/2024 11:17 AM EDT us Hill Dickson MD LAB BLOOD ORDERABLES Final Resul t [facility] [address] [place] [phone] * Diabetes Eye Exam (03/22/2023) Eye Exam Normal Normal, BIRADS 0 , BIRADS 1 , BIRADS 2, BIRADS 3 , BIRADS 4+ us Hill Dickson MD HEALTH MAINTENANCE Final Result * Hm Colonoscopy (03/03/2014 2:40 PM EST) Colonoscopy Normal Normal Narrative Hafsa Lares - 03/03/2014 2:40 PM EST Recommended 10 year follow up us Historical Provider HEALTH MAINTENANCE Final Result * Hepatitis C Antibody (09/15/2012) Hepatitis C Antibody Nonreactive Blood Hill Name HEALTH MAINTENANCE Final Result from Last 3 Months or Most Recently Relevant to Health Maintenance Insurance [facility] OPTIONS (HMO D-SNP) [facility] Care Teams Recycling Operations Manager Relationship Specialty Start Date End Date Name, MD Hill [address] [place] [address] PCP - General Family Medicine 03/15/15 [facility] 11/23/24 Clinical Summary Created on: December 24, 2024 Azeb Kennedy : 1945 Sex: Female Author Organization [employer] Address [address] [place] [address] [address] [place] [address] Care Team Providers Care Recycling Operations Manager Name Role Phone Name, Hill HERNANDEZ Primary Care Provider [phone] Allergies No known active allergies Medications * This document contains information received from the source organization and may not represent a complete record from that organization. Lancets (OneTouch Delica Plus [id number]) [facility] TEST BLOOD SUGAR THREE TIMES DAILY 03/02/19 [...] 02/22/20 23 Active Lancets (OneTouch Delica Plus [id number]) miscIndications :Diabetes mellitus type 2 in obese [...] complication, without long-term current use of insulin (HCC),Essential hypertension TAKE 1 TABLET BY MOUTH TWICE [...] complication, without long-term current use of insulin ([facility]) TEST BLOOD SUGAR THREE TIMES DAILY 150 strip 11 08/05/19 Active pravastatin (Pravachol) 10 MG tablet Take 1 tablet (10 mg) by mouth Once per day. 90 tablet 3 12/15/19 Active lisinopril 5 MG tablet Take 1 tablet (5 mg) by mouth Once per day. 30 tablet 11 12/15/19 25 2025 Active omeprazole (PriLOSEC) [address] capsule Take 1 capsule (20 mg) by mouth in the morning. 30 capsule 3 12/15/19 Active lemborexant (DayVigo) 10 MG tabletIndicatio ns:Primary [...] mouth in the morning. 30 tablet 11 03/07/192024 Discontinued(T herapy completed) pravastatin (Pravachol) 10 MG tablet Take 1 tablet (10 mg) by mouth Once per day. 90 tablet 3 09/16/192024 Discontinued(R eorder (will not trigger notification to [...] family illness. Azeb's boyfriend unexpectedly in the [place]. They have been together for about four years. Azeb lives alone and reports having sense of isolation and feeling lonely. The passing of her boyfriend has been identified as main stressor. PLAN: (check all that apply) Further services needed, but declined Behavioral Health Integration Plan Internal Follow up with [facility] Patient Self Plan Patient to utilize skills provided in intervention , Patient [facility] as [facility], Comply with [...] no meds with clinically significant interactions with [facility] calculus 10/04/2022 Generalized gingival recession 10/04/2022 [...] family illness. Azeb's boyfriend unexpectedly in the [place]. They have been together for about four years. Azeb lives alone and reports having sense of isolation and feeling lonely. The passing of her boyfriend has been identified as main stressor. PLAN: (check all that apply) Further services needed, but declined Behavioral Health Integration Plan Internal Follow up with [facility] Patient Self Plan Patient to utilize skills provided in intervention , Patient to reach [facility] to [facility] team as needed, Comply with [...] Type Department Care Team Description 12/17/[address] [address] Hill Dickson MD Med Refill 12/14/2024 10:00 AM EDT Office Visit [address] [address] Hill Dickson MD Type 2 diabetes mellitus with other specified complication, without long-term current use of insulin (HCC) (Primary Dx); Hypertension, unspecified type; Acute vaginitis; Major depression, chronic; Primary insomnia; Chronic right shoulder pain; Primary osteoarthritis of both knees; Vaccine refused by patient 12/14/2024 Travel 12/11/[address] [address] Hill Dickson MD chart prep 12/01/[address] [address] Hill Dickson MD 11/20/2024 Orders Only [facility] External Provider, [facility] 10/29/2024 8:40 AM EDT Office Visit [facility] [address] [place] [address] Alejo Miranda MD Right shoulder pain, unspecified chronicity (Primary Dx) 10/29/2024 Travel 10/19/2024 Telephone [facility] [address] [place], [place] [phone] Alejo Miranda MD 10/16/2024 10:00 AM EDT Office Visit [facility] [address] [address] Alejo Miranda MD Right shoulder pain, unspecified chronicity (Primary Dx) 10/05/2024 9:00 AM EDT [facility] [address] [address] Vaishali Gee MD COVID-19 (Primary Dx) 10/05/2024 Travel 10/01/2024 8:40 AM EDT [facility] [address] [address] Alejo Miranda MD COVID-19 (Primary Dx); Right knee pain, unspecified chronicity 10/01/2024 Telephone [facility] [address] [place] [address] Livia Tracy [place] october recalls 10/01/2024 Travel 09/24/2024 Orders Only [facility] [address] [place] [address] Sharonda Stern NP Primary insomnia (Primary Dx) 09/23/2024 Refill [facility] [address] [place] [address] Sharonda Stern NP 09/23/[address] [address] Teresa Samson, CHRISTIAN from Last 3 Months Immunizations Immunization Administration [...] 9:45 AM EST Office Visit [facility] [address] [place], [place] [phone] Name, MD Hill [address] [place], [place] [phone] Health Maintenance Due Date Last Done Comments [...] 41,627 Blood 12/14/2024 10:0 7 AM EDT us [...] PM EDT Narrative 12/03/2024 8:19 AM EDT [address] [address] Magnetic Resonance Report Signed Patient: Azeb Kennedy MR#: [id number] 4 : 1945 Acct:[id number] Age/Sex: 79 / F ADM Date: 11/20/24 Loc: HO.MRI Attending Dr: Thiago Adames MD Ordering Physician: Thiago Adames MD Date of Service: 12/01/24 Procedure(s): MR shoulder RT wo con Accession Number(s): [id number] cc: Name,Hill HERNANDEZ; Thiago Adames MD Reason [...] OV> 12/03/24 0816 DD/ 44 TD/TT: 12/01/242010 Speech Coach: LUCY Procedure Note Mayrater, Image - 12/03/2024 [place] [address] Magnetic Resonance Report Signed Patient: Abraham Kennedy#: [id number] 4 : 8Acct:[id number] Age/Sex: 79 / FADM Date: 11/20/24 Loc: HO.MRI Attending Dr: Thiago Adames MD Ordering Physician: Thiago Adames MD Date of Service: 12/01/24 Procedure(s): MR shoulder RT wo con Accession Number(s): [id number] cc: Name,Hill HERNANDEZ; Thiago Adames MD Reason [...] in OV> 12/03/24815 DD/ 44 TD/TT: 12/01/242010 Speech Coach: LUCY [facility] External Provider IMG MRI PROCEDURES Final Result * XR Knee 4+ Views Left (11/20/2024 12:27 PM EDT) Anatomical Region Laterality Modality Lower Extremities, Knee Left Radiogra phic Imaging 11/20/2024 12:2 7 PM EDT Narrative 11/20/2024 12:35 PM EDT [place] [address] XRay Report Signed Patient: Azeb Kennedy MR#: [id number] 4 : 1945 Acct:[id number] Age/Sex: 79 / F ADM Date: 11/20/24 Loc: .ED Attending Dr: Ordering Physician: Radha Cagle NP Date of Service: 11/20/24 Procedure(s): XR knee LT 4V Accession Number(s): [id number] cc: Hill Dickson MD; Radha Cagle NP Reason for Exam: [...] in OV> 11/20/24 1232 DD/ 1227 TD/TT: 11/20/241226 Speech Coach: Procedure Note Donotuseinterpreter, Image - 11/20/2024 [place] [address] XRay Report Signed Patient: bAraham Kennedy#: [id number] 4 : 8Acct:[id number] Age/Sex: 79 / FADM Date: 11/20/24 Loc: .ED Attending Dr: Ordering Physician: Radha Cagle NP Date of Service: 11/20/24 Procedure(s): XR knee LT 4V Accession Number(s): [id number] cc: Name,Hill HERNANDEZ; Radha Cagle NP Reason [...] in OV> 11/20/24 1232 DD/ 1227 TD/TT: 11/20/241226 Speech Coach: [facility] External Provider IMG XR PROCEDURES Final Result * CT Cervical Spine w/o Contrast (11/20/2024 10:26 AM EDT) Anatomical Region Laterality Modality Spine, C-spine Computed Tomogra phy 11/20/2024 10:2 6 AM EDT Narrative 11/20/2024 11:10 AM EDT [address] [address] [address] Scan Report Signed Patient: Azeb Kennedy MR#: [id number] 4 : 1945 Acct:[id number] Age/Sex: 79 / F ADM Date: 11/20/24 Loc: HO.ED Attending Dr: Ordering Physician: Radha Cagle NP Date of Service: 11/20/24 Procedure(s): CT cervical spine wo IV con Accession Number(s): [id number] cc: Name,Hill HERNANDEZ; Radha Cagle NP Report Number: [id number]: Total DLP = 367.00 mGy-cm Reason for [...]
--- OUTSIDE RECORDS SUMMARY | 2024-12-24 09:50 | XMS_ITS | Encounter Summary ---
Author Organization [employer] Address [address] [place] [address] Care Team Providers Care Aircraft Launch And Recovery Technician Name Role Phone Name, Hill HERNANDEZ Primary Care Provider [phone] Encounter Details Date Type Department Care Team (Late st Contact Info) Description 02/01/2023 Telephone [facility] [address] [place], [place] [phone] Name, MD Hill [address] [place] [address] Social History Tobacco Use Types Packs/Day Years [...] Description 03/18/2025 9:45 AM EST Office Visit [facility] [address] [place] [address] Name, MD Hill [address] [place] [address] documented as of this encounter Visit Diagnoses Not on filedocumented in this encounter Additional Health Concerns Assessment Noted Time PHQ-9 Depression Total Score: 19 023 1:35 PM EDT documented as of this encounter Care Teams Aircraft Launch And Recovery Technician Relationship Specialty Start Date End Date Name, MD Hill [address] [place] [address] PCP - General Family Medicine 03/15/15 [facility] 11/23/24 documented as of this encounter
--- OUTSIDE RECORDS SUMMARY | 2024-12-24 09:50 | XMS_ITS | Encounter Summary ---
Author Organization [employer] Address [address] [facility] [address] [place] [address] Care Team Providers Care Clinical Research Nurse Coordinator Name Role Phone Name, Hill HERNANDEZ Primary Care Provider [phone] Encounter Details Date Type Department Care Team (Latest Contact Info) Description 04/21/2019 Abstract [facility] CON[facility] Dental, Provider, [...] Description 03/18/2025 9:45 AM EST Office Visit [facility] [address] [place] [address] Name, MD Hill [address] [place] [address] documented as of this encounter Visit Diagnoses Not on filedocumented in this encounter Care Teams Clinical Research Nurse Coordinator Relationship Specialty Start Date End Date Name, MD Hill [address] [place] [address] PCP - General Family Medicine 03/15/15 [facility] 11/23/24 documented as of this encounter
--- OUTSIDE RECORDS SUMMARY | 2024-12-24 09:50 | XMS_ITS | Clinical Summary ---
Author Organization [facility] Address [address] [facility] [address] [place] [address] Phone Care Team Providers Care Senior Receptionist Name Role Phone Name, Hill HERNANDEZ Primary Care Provider [phone] Allergies No known active allergies Medications metformin [...] topic Medical Devices Not on file Insurance [facility] MEDICARE REPLACEMENT Member Subscriber Plan / Payer (Ef fective 2019-Present) Name:Azeb Kennedy Relation to Subscriber:Self Name:Azeb Kennedy Payer ID:[id number] (NAIC) Group ID:Not on file Type:Medicare Address: [place] [id number] MEDICARE REPLACEMENT [id number] [place] [phone] [facility] MEDICARE REPLAC[place] [address] [place] [address] [place] [address] MEDICARE REPLACEMENT [facility] MEDICARE REPLACEMENT MEDICARE [place] [place] [address] MEDICARE REPLACEMENT [place] [id number] Care Teams Senior Receptionist Relationship Specialty Start Date End Date Name, MD Hill [address] [place] [address] PCP - General Geriatric Psychiatry 01/07/20 Additional Source Comments The information contained in this document represents components of the legal health record. It is not the complete legal health record.[facility]
--- OUTSIDE RECORDS SUMMARY | 2024-12-24 09:50 | XMS_ITS | Encounter Summary ---
Author Organization [employer] Address [address] [facility] [address]t [place] [address] Care Team Providers Care Campus Wellness Coordinator Name Role Phone Name, Hlil HERNANDEZ Primary Care Provider [phone] Encounter Details Date Type Department Care Team (Latest Contact Info) Description 01/06/2020 Abstract [facility] CONVERSIONS Dental, Provider, DDS Social History [...] Description 03/18/2025 9:45 AM EST Office Visit [facility] [address] [place] [address] Name, MD Hill [address] [place] [address] documented as of this encounter Visit Diagnoses Not on filedocumented in this encounter Care Teams Campus Wellness Coordinator Relationship Specialty Start Date End Date Name, MD Hill [address] [place] [address] PCP - General Family Medicine 03/15/15 [facility] 11/23/24 documented as of this encounter
--- OUTSIDE RECORDS SUMMARY | 2024-12-24 09:50 | XMS_ITS | Encounter Summary ---
Author Organization [employer] Address [address] [facility] 7t [place] [address] Care Team Providers Care Java Lead Name Role Phone Name, Hill HERNANDEZ Primary Care Provider [phone] Reason for Visit * Reason Onset Date Comments Call Back Request 06/18/2024 Encounter Details Date Type Department Care Team ([facility] st Contact Info) Description 06/18/2024 Telephone [facility] [address] [place], [place] [phone] Name, MD Hill [address] [place] [address] Call Back Request Social History Tobacco Use [...] - 06/18/2024 3:17 PM EDT Tc from [place] with [facility] regarding ramelteon (Rozerem) 8 MG tablet requesting a call back from nurses to discuss alternative med. [phone] documented in this encounter Plan of Treatment Upcoming Encounters Date Type Department Care Team (Late st Contact Info) Description 03/18/2025 9:45 AM EST Office Visit [facility] [address] [place] [address] Name, MD Hill [address] [place] [address] documented as of this encounter Visit Diagnoses Not on filedocumented in this encounter Additional Health Concerns Assessment Noted Time PHQ-9 Depression Total Score: 4 03/17/19 25 2:14 PM EST documented as of this encounter Care Teams Java Lead Relationship Specialty Start Date End Date Name, MD Hill [address] [place] [address] PCP - General Family Medicine 03/15/15 [facility] 11/23/24 documented as of this encounter
--- OUTSIDE RECORDS SUMMARY | 2024-12-24 09:50 | XMS_ITS | Encounter Summary ---
Author Organization [employer] Address [address] [facility] 7t [place] [address] Care Team Providers Care Subscription Agent Name Role Phone Name, Hill HERNANDEZ Primary Care Provider [phone] Encounter Details Date Type Department Care Team (Latest Contact Info) Description 07/26/2021 Abstract [facility] CONVERSIONS Dental, Provider, DDS Social [...] Description 03/18/2025 9:45 AM EST Office Visit [facility] [address] [place] [address] Name, MD Hill [address] [place] [address] documented as of this encounter Visit Diagnoses Not on filedocumented in this encounter Care Teams Subscription Agent Relationship Specialty Start Date End Date Name, MD Hill [address] [place] [address] PCP - General Family Medicine 03/15/15 [facility] 11/23/24 documented as of this encounter
--- OUTSIDE RECORDS SUMMARY | 2024-12-24 09:50 | XMS_ITS | Encounter Summary ---
Author Organization [employer] Address [address] 7t [place] [address] Care Team Providers Care Nail Mill Worker Name Role Phone Name, Hill HERNANDEZ Primary Care Provider [phone] Encounter Details Date Type Department Care Team (Late st Contact Info) Description 01/21/2023 Telephone [facility] MEDICINE [address] [place], [place] [phone] Name, MD Hill [address] [place] [address] Social History Tobacco Use Types Packs/Day Years [...] Description 03/18/2025 9:45 AM EST Office Visit [facility] MEDICINE [address] [place] [address] Name, MD Hill [address] [place] [address] documented as of this encounter Visit Diagnoses Not on filedocumented in this encounter Additional Health Concerns Assessment Noted Time PHQ-9 Depression Total Score: 19 023 1:35 PM EDT documented as of this encounter Care Teams Nail Mill Worker Relationship Specialty Start Date End Date Name, MD Hill [address] [place] [address] PCP - General Family Medicine 03/15/15 [facility] 11/23/24 documented as of this encounter
--- OUTSIDE RECORDS SUMMARY | 2024-12-24 09:50 | XMS_ITS | Clinical Summary ---
Author Organization [address] [place] [address] Address [address] [place] [address] Phone Care Team Providers Care Laborer Demolition Name Role Phone Gina Fonseca MD Primary [...] right leg BREAST REDUCTION 2009 Bilateral PROCEDURE: ID BREAST REDUCTION Medical History Medical History Date Comments Unspecified essential hypertension DX:Unspecified essential hypertension DM type 2 (diabetes mellitus , type 2) ([facility] V24, [facility] V28) 12/24/2012 DX:DM type 2 (diabetes hailee itus, type 2) ([facility]) Family History Medical History Relation [...] PM EST Office Visit [facility] [place] [address] [place] [phone] Vicente Pearce, DPM [address] [place] [phone] Health Maintenance Due Date Last Done Comments [...] HM URINE ALBUMIN CREATININE RATIO Routine 08/27/2014 HM HEPATITIS C SCREENING Routine 09/15/2012 from Last 3 Months or Most Recently Relevant to Health Maintenance Results * (ABNORMAL) Hemoglobin A1c (06/04/2024 7:34 AM EDT) [facility] Hemoglobin A1C 6.6(H) <6.5 % LAB CHEMISTRY METHOD 06/04/2024 12:34 PM EDT [facility] Mean Bld Glu Estim. 143 mg/dL LAB CHEMISTRY METHOD 06/04/2024 12:34 PM EDT [facility] Blood Venous blood specimen / Unknown Venipuncture / Unknown 06/04/2024 7:34 AM EDT 06/04/2024 9:59 AM EDT us Behzad Conway MD LAB BLOOD ORDERABLES Final Result [facility] [address] [place] [address], * (ABNORMAL) Comprehensive metabolic panel (06/04/2024 7:34 AM EDT) [facility] Sodium 139 133 - 145 mmol/L LAB CHEMISTRY METHOD 06/04/2024 10:53 AM [facility] Potassium 4.6 3.5 - 5.5 mmol/L LAB CHEMISTRY METHOD 06/04/2024 10:53 AM [facility] Chloride 105 96 - 110 mmol/L LAB CHEMISTRY METHOD 06/04/2024 10:53 AM [facility] CO2 30 21 - 32 mmol/L LAB CHEMISTRY METHOD 06/04/2024 10:53 AM [facility] Anion Gap 4 3 - 11 LAB CHEMISTRY METHOD 06/04/2024 10:53 AM [facility] Glucose 105(H) 70 - 100 mg/dL LAB CHEMISTRY METHOD 06/04/2024 10:53 AM [facility] BUN 18 5 - 25 mg/dL LAB CHEMISTRY METHOD 06/04/2024 10:53 AM [facility] Creatinine 0.74 0.50 - 1.10 mg/dL LAB CHEMISTRY METHOD 06/04/2024 10:53 AM [facility] eGFR 83 >=60 mL/min/1. 73m2 LAB CHEMISTRY METHOD 06/04/2024 10:53 AM [facility] Comment:Calculation based on the Chronic Kidney Disease Epidemiology Collaboration (CKD-EPI) equation refit without adjustment for race. BUN/Creatinine Ratio 24.3 LAB CHEMISTRY METHOD 06/04/2024 10:53 AM [facility] Calcium 9.2 8.5 - 10.5 mg/dL LAB CHEMISTRY METHOD 06/04/2024 10:53 AM [facility] AST (SGOT) 37 10 - 42 unit/L LAB CHEMISTRY METHOD 06/04/2024 10:53 AM [facility] ALT (SGPT) 38 10 - 60 unit/L LAB CHEMISTRY METHOD 06/04/2024 10:53 AM [facility] Alkaline Phosphatase 112 42 - 121 unit/L LAB CHEMISTRY METHOD 06/04/2024 10:53 AM [facility] Total Protein 7.3 6.0 - 8.0 g/dL LAB CHEMISTRY METHOD 06/04/2024 10:53 AM [facility] Albumin 3.7 3.2 - 5.0 g/dL LAB CHEMISTRY METHOD 06/04/2024 10:53 AM [facility] Total Bilirubin 0.4 0.0 - 1.4 mg/dL LAB CHEMISTRY METHOD 06/04/2024 10:53 AM [facility] Blood Venous blood specimen / Unknown Venipuncture / Unknown 06/04/2024 7:34 AM EDT 06/04/2024 9:59 AM EDT us Behzad Conway MD LAB BLOOD ORDERABLES Final Result [facility] [address] [place] [address], * SCR MAMMO BI INCL CAD (08/11/2018 [...] C Screening (09/15/2012) Hepatitis C Screening abstracted [facility] Provider HEALTH MAINTENANCE Final Result from Last 3 Months or Most Recently Relevant to Health Maintenance Insurance [facility] MEDICARE Member Subscriber Plan / Payer (Ef fective 2023-Present) Name:Azeb Kennedy Relation to Subscriber:Self Name:Azeb Kennedy Payer ID:[id number] Group ID:[id number] Type:Not on file Address: [place] [address] [address] [id number] Care Teams Laborer Demolition Relationship Specialty Start Date End Date Gina Fonseca MD [address] [place], [place] PCP - General Internal Medicine 10/16/21
--- OUTSIDE RECORDS SUMMARY | 2024-12-24 09:50 | XMS_ITS | Encounter Summary ---
Author Organization [employer] Address [address] [facility] 7t [place] [address] Care Team Providers Care Mechanical Design Technician Name Role Phone Name, Hill HERNANDEZ Primary Care Provider [phone] Reason for Visit * Reason Onset Date Comments ER Follow-up 05/20/2024 Encounter Details Date Type Department Care Team ([facility] st Contact Info) Description 05/20/2024 Telephone [facility] MEDICINE [address] [place], [place] [phone] Name, MD Hill [address] [place] [address] ER Follow-up Social History Tobacco Use Types [...] PM EDT Please obtain ED report from [facility] [place]19[place]. Thank you. Triage call to Pt with [facility] [place] [id number]. Pt is called for follow up post [...] Pt is advised to call back to [facility] if needed after 05/22/24 and Pt agrees [...] ED visit on : Date: 05/19/24 Hospital: [facility] Seen for: Fall Symptomatic Yes pain on right arm *if yes message should go to Triage Patient advised will forward to team nurse for follow up documented in this encounter Plan of Treatment Upcoming Encounters Date Type Department Care Team (Late st Contact Info) Description 03/18/2025 9:45 AM EST Office Visit [facility] MEDICINE [address] [place] [address] Name, MD Hill [address] [place] [address] documented as of this encounter Visit Diagnoses Not on filedocumented in this encounter Additional Health Concerns Assessment Noted Time PHQ-9 Depression Total Score: 4 03/17/19 25 2:14 PM EST documented as of this encounter Care Teams Mechanical Design Technician Relationship Specialty Start Date End Date Name, MD Hill [address] [place] [address] PCP - General Family Medicine 03/15/15 [facility] 11/23/24 documented as of this encounter
--- OUTSIDE RECORDS SUMMARY | 2024-12-24 09:50 | XMS_ITS | Encounter Summary ---
Author Organization [employer] Address [address] [facility] 7t [place] [address] Care Team Providers Care Drapery Head Former Name Role Phone Name, Hill HERNANDEZ Primary Care Provider [phone] Reason for Visit * Reason Onset Date Comments triage 07/19/2022 Encounter Details Date Type Department Care Team ([facility] st Contact Info) Description 07/19/2022 Telephone [facility] MEDICINE [address] [place], [place] [phone] Name, MD Hill [address] [place] [address] triage Social History Tobacco Use Types Packs/Day [...] worse The caller accepted this outcome speaks egyptian documented in this encounter Plan of Treatment Upcoming Encounters Date Type Department Care Team (Late st Contact Info) Description 03/18/2025 9:45 AM EST Office Visit [facility] MEDICINE [address] [place] [address] Name, MD Hill [address] [place] [address] documented as of this encounter Visit Diagnoses Not on filedocumented in this encounter Additional Health Concerns Assessment Noted Time PHQ-9 Depression Total Score: 19 023 1:35 PM EDT documented as of this encounter Care Teams Drapery Head Former Relationship Specialty Start Date End Date Name, MD Hill [address] [place] [address] PCP - General Family Medicine 03/15/15 [facility] 11/23/24 documented as of this encounter
--- OUTSIDE RECORDS SUMMARY | 2024-12-24 09:50 | XMS_ITS | Encounter Summary ---
Author Organization [employer] Address [address] [facility] 7t [place] [address] Care Team Providers Care Grinder Set Up Operator Surface Name Role Phone Name, Hill HERNANDEZ Primary Care Provider [phone] Reason for Visit * Reason Comments Med Refill Encounter Details Date Type Department Care Team ([facility] st Contact Info) Description 07/02/2024 Refill [facility] MEDICINE [address] [place], [place] [phone] Name, MD Hill [address] [place] [address] Social History Tobacco Use Types Packs/Day Years [...] Description 03/18/2025 9:45 AM EST Office Visit [facility] MEDICINE [address] [place] [address] Name, MD Hill [address] [place] [address] documented as of this encounter Visit Diagnoses Not on filedocumented in this encounter Additional Health Concerns Assessment Noted Time PHQ-9 Depression Total Score: 4 03/17/19 25 2:14 PM EST documented as of this encounter Care Teams Grinder Set Up Operator Surface Relationship Specialty Start Date End Date Name, MD Hill [address] [place] [address] PCP - General Family Medicine 03/15/15 [facility] 11/23/24 documented as of this encounter
--- OUTSIDE RECORDS SUMMARY | 2024-12-24 09:50 | XMS_ITS | Encounter Summary ---
Author Organization [employer] Address [address] [facility] 7t [place] [address] Care Team Providers Care Clod Puller Name Role Phone Name, Hill HERNANDEZ Primary Care Provider [phone] Encounter Details Date Type Department Care Team (Latest Contact Info) Description 04/15/2018 Abstract [facility] CONVERSIONS Dental, Provider, DDS Social [...] EST Office Visit [facility] MEDICINE [address] [place] [address] Name, MD Hill [address] [place] [address] documented as of this encounter Visit Diagnoses Not on filedocumented in this encounter Care Teams Clod Puller Relationship Specialty Start Date End Date Name, MD Hill [address] [place] [address] PCP - General Family Medicine 03/15/15 [facility] 11/23/24 documented as of this encounter
--- OUTSIDE RECORDS SUMMARY | 2024-12-24 09:50 | XMS_ITS | Encounter Summary ---
Author Organization [employer] Address [address] [facility] 7t [place] [address] Care Team Providers Care Compensation Programs Manager Name Role Phone Name, Hill HERNANDEZ Primary Care Provider [phone] Reason for Visit * Reason Onset Date Comments Pre Op 10/02/2023 Encounter Details Date Type Department Care Team ([facility] st Contact Info) Description 10/02/2023 Telephone [facility] MEDICINE [address] [place], [place] [phone] Name, MD Hill [address] [place] [address] Pre Op Social History Tobacco Use Types [...] No Surgeon's name: Tomás Hopkins Facility name: [facility] Surgeon's office number: [phone] Surgeon's office fax number: [phone] Contact name: Yohana documented in this encounter Plan of Treatment Upcoming Encounters Date Type Department Care Team (Late st Contact Info) Description 03/18/2025 9:45 AM EST Office Visit [facility] MEDICINE [address] [place] [address] Name, MD Hill [address] [place] [address] documented as of this encounter Visit Diagnoses Not on filedocumented in this encounter Additional Health Concerns Assessment Noted Time PHQ-9 Depression Total Score: 12 05/08/ 024 1:00 PM EDT documented as of this encounter Care Teams Compensation Programs Manager Relationship Specialty Start Date End Date Name, MD Hill [address] [place] [address] PCP - General Family Medicine 03/15/15 [facility] 11/23/24 documented as of this encounter
--- OUTSIDE RECORDS SUMMARY | 2024-12-24 09:50 | XMS_ITS | Patient Health Record ---
Author Organization [facility] Address [address] [place] [address] Care Team Providers Care Bakery Assistant Name Role Phone Name Hill HERNANDEZ Primary Care Provider James Kaur [phone] Allergies No Known Allergies Reason For Referral No Information Medications Medication SIG (Take, Route, Frequency, Duration) Notes Start Date End Date Status Amitriptyline HCl 25 MG 1 tablet at bedt juan josé Orally Once a day Active Tylenol 8 Hour Arthritis Pain 650 MG 2 tablets as needed Orally every 8 hrs Active Omeprazole 20 MG TAKE 1 CAPSULE BY [facility] DAILY IN THE MORNING Oral; Duration: 30 [...] Status Risk Notes Problem Colon cancer screening (073470356) Colon cancer screening (Z12.11) Active confirmed Problem Gastroesophageal reflux disease without esophagitis (271066933) Gastroesophageal reflux disease without esophagitis (K21.9) Active confirmed Problem Gastroesophageal reflux disease (248911098) Gastroesophageal reflux disease, esophagitis presence not specified (K21.9) Active confirmed Problem Constipation (43759561) Constipation, unspecified constipation type (K59.00) Active confirmed Encounters Encounter Location Date Provider Diagnosis [facility] [address] [place] [phone] 05/21/2024 James Easton [facility] [address] [place] [address] [place] [address] 06/09/2024 James Easton [facility] [address] [place] [address] 11/02/2024 James Easton Plan Of Treatment Future Test Test Name Order Date COLONOSCOPY 12/02/2013 Next Appt Details Provider Name:James Easton , 03/16/2025 10:50:00 AM, [address], [address], [place], [phone], Insurance Providers Payer Name Payer Address Payer Phone Subscriber Number Group Number Insured Name Patient Relationship to Insured Coverage Start Date Coverage End Date [facility] [address] [place] [address] [id number] RAFFAELE CHUNG Self - patient is the [...]
--- OUTSIDE RECORDS SUMMARY | 2024-12-24 09:51 | XMS_ITS | Encounter Summary ---
Author Organization [employer] Address [address] [facility] 7t [place] [address] Care Team Providers Care Under Ground Miner Name Role Phone Name, Hill HERNANDEZ Primary Care Provider [phone] Reason for Visit * Reason Onset Date Comments Pre-op Visit 04/25/2023 Encounter Details Date Type Department Care Team ([facility] st Contact Info) Description 04/25/2023 Telephone [facility] MEDICINE [address] [place], [place] [phone] Name, MD Hill [address] [place] [address] Pre-op Visit Social History Tobacco Use Types [...] Lab needed: No EKG: No Surgeon's name: [facility] name: [facility] Surgeon's office number: [phone] Surgeon's office fax number: [phone] Contact name (person you spoke with): Patricia Last office note from surgeon requested documented in this encounter Plan of Treatment Upcoming Encounters Date Type Department Care Team (Late st Contact Info) Description 03/18/2025 9:45 AM EST Office Visit [facility] MEDICINE [address] [place] [address] Name, MD Hill [address] [place] [address] documented as of this encounter Visit Diagnoses Not on filedocumented in this encounter Additional Health Concerns Assessment Noted Time PHQ-9 Depression Total Score: 0 03/07/19 24 8:57 AM EST documented as of this encounter Care Teams Under Ground Miner Relationship Specialty Start Date End Date Name, MD Hill [address] [place] [address] PCP - General Family Medicine 03/15/15 [facility] 11/23/24 documented as of this encounter
--- OUTSIDE RECORDS SUMMARY | 2024-12-24 09:51 | XMS_ITS | Encounter Summary ---
Author Organization [employer] Address [address] [facility] 7t [place] [address] Care Team Providers Care Boiler Technician Name Role Phone Name, Hill HERNANDEZ Primary Care Provider [phone] Reason for Visit * Reason Onset Date Comments FYI 05/07/2023 Encounter Details Date Type Department Care Team ([facility] st Contact Info) Description 05/07/2023 Telephone [facility] MEDICINE [address] [place], [place] [phone] Name, MD Hill [address] [place] [address] Social History Tobacco Use Types Packs/Day Years [...] blood pressure and Charla rojas advised by technical document writer that pt was seen yesterday and have an appt on . Any questions to Dennise [phone] documented in this encounter Plan of Treatment Upcoming Encounters Date Type Department Care Team (Late st Contact Info) Description 03/18/2025 9:45 AM EST Office Visit [facility] MEDICINE [address] [place] [address] Name, MD Hill [address] [place] [address] documented as of this encounter Visit Diagnoses Not on filedocumented in this encounter Additional Health Concerns Assessment Noted Time PHQ-9 Depression Total Score: 0 03/07/19 24 8:57 AM EST documented as of this encounter Care Teams Boiler Technician Relationship Specialty Start Date End Date Name, MD Hill [address] [place] [address] PCP - General Family Medicine 03/15/15 [facility] 11/23/24 documented as of this encounter
== END 2024-12-24 09:44 | disposition home or self-care (01) ==
LOC: HO.HOS 08:52
PROVIDERS: PCP Internal Medicine Geriatric Medicine; Visit Provider Orthopaedic Surgery
DX: M25.311 Other instability, right shoulder (principal); E11.9 Type 2 diabetes mellitus without complications
CPT/HCPCS: 20610; 99214

== ENCOUNTER → 2024-12-24 08:51 | Outpatient (BNVA) | payer OTHER, SELFPAY | PROVIDERS: PCP Internal Medicine Geriatric Medicine; Visit Provider Orthopaedic Surgery | DX: M25.311 Other instability, right shoulder (principal); E11.9 Type 2 diabetes mellitus without complications | CPT/HCPCS: 20610; 99212; J0665; J1100; J2003 ==

== ENCOUNTER 2024-12-25 08:05 | Outpatient (REF) | payer OTHER, SELFPAY ==
--- OUTSIDE RECORDS SUMMARY | 2024-06-09 06:10 | XMS_ITS ---
Author Organization [facility] Address [address] [place] [address] Care Team Providers Care Equipment Washer Name Role Phone Name Hill HERNANDEZ Primary Care Provider James Kaur [phone] REASON FOR VISIT Patient presents today for an upper endo Encounters Encounter Location Date Provider Diagnosis [facility] [address] [place] [address] 06/09/2024 James Easton Plan Of Treatment Next Appt Details Provider Name:James Easton , 03/16/2025 10:50:00 AM, [address], [address], [place], [address], Progress Notes * RAFFAELE CHUNG EDOB:[birth year] (79 yo F)Acc No.[id number]:06/09/2024 Progress Notes Patient: RAFFAELE CARR Provider: Curt Easton MD :1945 A ge:79 Y S ex:Female Date:06/09/2024 Address:[address] [facility] [address], [place], [place] Pcp:Hill Dickson MD Subjective: * Chief Complaints: [...] 06/09/2024 Generated for Tejinder erickson/Andres/Nir on: 1 08:08 AM EDT
--- OUTSIDE RECORDS SUMMARY | 2024-12-25 08:08 | XMS_ITS ---
Author Name [place], [place]. Socorro Olson Address [address] [place] [address] Phone [phone] [facility] Care Team Providers Care Sales Associate Cashier Name Role Phone Ruth Sen Unavailable [phone] Reason for Referral Not Available Allergies, adverse [...] 2021-12-05 No Data Available OneTouch Delica Plus [id number] Miscellaneous TEST BLOOD SUGAR THREE TIMES DAILY [...] (do not use for phone, instead use 04997-40) [facility]2022 Type 2 diabetes mellitus wit h other specified complicationHyperlipidemia, unspecifiedEssential (primary) hypertensionMajor depressive disorder, recurrent, in remission, unspecifiedPersonal history of (healed) traumatic fracture New patient,40-59min; chronic exacerbation, 2 stable chronic or 1 acute illness add add modifier 95 for video (do not use for phone, instead use 91042-76) [facility] [place] 06[place]04/2022 New patient,40-59min; chronic exacerbation, 2 stable chronic or 1 acute illness add add modifier 95 for video (do not use for phone, instead use 66611-28) [facility] [place] 06/04/2022 New patient,40-59min; chronic exacerbation, 2 stable chronic or 1 acute illness add add modifier 95 for video (do not use for phone, instead use 56384-77) [facility] [place] 06/04/2022 New patient,40-59min; chronic exacerbation, 2 stable chronic or 1 acute illness add add modifier 95 for video (do not use for phone, instead use 34727-48) [facility] [place] 06/04/2022 New patient,40-59min; chronic exacerbation, 2 stable chronic or 1 acute illness add add modifier 95 for video (do not use for phone, instead use 27111-13) [facility] 06[place]04/2022 New patient,40-59min; chronic exacerbation, 2 stable chronic or 1 acute illness add add modifier 95 for video (do not use for phone, instead use 24549-56) [facility] [place] 06[place]04/2022 New patient,40-59min; chronic exacerbation, 2 stable chronic or 1 acute illness add add modifier 95 for video (do not use for phone, instead use 46247-57) [facility] [place] 06/04/2022 Vital Signs Date of Collection Vitals 2022-06-04 10:06:44 Height - 157.48 cmWe ight - 68.04 kgBody Mass Index (BMI) - 27.44 kg/m2 Social History Social History Social History Observation Description Effec tive Time Current Smoking Status Never smoker 2024-11-27 1 Sex Female History of Procedures Procedures Service Procedure code Service date Servicing provider Phone# New patient,40-59min; chronic exacerbation, 2 stable chronic or 1 acute illness add add modifier 95 for video (do not use for phone, instead use 24684-68) [address] 2022-06-04 No Data Available No Data Availa [...] ilable Functional Status Functional Category Effective Dates PARARESCUE CRAFTSMAN assists with cooking, cl eaning and laundry. [...]
--- OUTSIDE RECORDS SUMMARY | 2024-12-25 08:09 | XMS_ITS | Encounter Summary ---
Author Organization [employer] Address [address] [facility] [address] 7t [place] [address] Care Team Providers Care Rotoformer Backtender Name Role Phone Name, Hill HERNANDEZ Primary Care Provider [phone] Encounter Details Date Type Department Care Team (Late st Contact Info) Description 02/01/2023 Telephone [facility] MEDICINE [address] [place], [place] [phone] Name, MD Hill [address] [place] [address] Social History Tobacco Use Types Packs/Day Years [...] EST Office Visit [facility] MEDICINE [address] [place] [address] Name, MD Hill [address] [place] [address] documented as of this encounter Visit Diagnoses Not on filedocumented in this encounter Additional Health Concerns Assessment Noted Time PHQ-9 Depression Total Score: 19 023 1:35 PM EDT documented as of this encounter Care Teams Rotoformer Backtender Relationship Specialty Start Date End Date Name, MD Hill [address] [place] [address] PCP - General Family Medicine 03/15/15 [facility] 11/23/24 documented as of this encounter
--- OUTSIDE RECORDS SUMMARY | 2024-12-25 08:09 | XMS_ITS | Patient Health Record ---
Author Organization [facility] Address [address] [place] [address] Care Team Providers Care Marketing Communications Coordinator Name Role Phone Name Hill HERNANDEZ Primary Care Provider James Kaur [phone] Allergies No Known Allergies Reason For Referral No Information Medications Medication SIG (Take, Route, Frequency, Duration) Notes Start Date End Date Status Amitriptyline HCl 25 MG 1 tablet at bedt juan josé Orally Once a day Active Tylenol 8 Hour Arthritis Pain 650 MG 2 tablets as needed Orally every 8 hrs Active Omeprazole 20 MG TAKE 1 CAPSULE BY [facility] DAILY IN THE MORNING Oral; Duration: [...] Status Risk Notes Problem Colon cancer screening (451815646) Colon cancer screening (Z12.11) Active confirmed Problem Gastroesophageal reflux disease without esophagitis (431978124) Gastroesophageal reflux disease without esophagitis (K21.9) Active confirmed Problem Gastroesophageal reflux disease (511334597) Gastroesophageal reflux disease, esophagitis presence not specified (K21.9) Active confirmed Problem Constipation (86660367) Constipation, unspecified constipation type (K59.00) Active confirmed Encounters Encounter Location Date Provider Diagnosis [facility] [address] [place] [address] 05/21/2024 James Easton [facility] [address] [place] [address] [place] [address] 06/09/2024 James Easton [facility] [address] [place] [address] 11/02/2024 James Easton Plan Of Treatment Future Test Test Name Order Date COLONOSCOPY 12/02/2013 Next Appt Details Provider Name:James Easton , 03/16/2025 10:50:00 AM, [address], [address], [place], [address], Insurance Providers Payer Name Payer Address Payer Phone Subscriber Number Group Number Insured Name Patient Relationship to Insured Coverage Start Date Coverage End Date [facility] [address] [place] [address] [id number] RAFFAELE CHUNG Self - patient is the [...]
--- OUTSIDE RECORDS SUMMARY | 2024-12-25 08:09 | XMS_ITS | Encounter Summary ---
Author Organization [employer] Address [address] [facility] 7t [place] [address] Care Team Providers Care Direct Marketing Manager Name Role Phone Name, Hill HERNANDEZ Primary Care Provider [phone] Reason for Visit * Reason Onset Date Comments FYI 05/07/2023 Encounter Details Date Type Department Care Team ([facility] st Contact Info) Description 05/07/2023 Telephone [facility] MEDICINE [address] [place], [place] [phone] Name, MD Hill [address] [place] [address] Social History Tobacco Use Types Packs/Day Years [...] blood pressure and Charla rojas advised by movie writer that pt was seen yesterday and have an appt on . Any questions to Dennise [phone] documented in this encounter Plan of Treatment Upcoming Encounters Date Type Department Care Team (Late st Contact Info) Description 03/18/2025 9:45 AM EST Office Visit [facility] MEDICINE [address] [place] [address] Name, MD Hill [address] [place] [address] documented as of this encounter Visit Diagnoses Not on filedocumented in this encounter Additional Health Concerns Assessment Noted Time PHQ-9 Depression Total Score: 0 03/07/19 24 8:57 AM EST documented as of this encounter Care Teams Direct Marketing Manager Relationship Specialty Start Date End Date Name, MD Hill [address] [place] [address] PCP - General Family Medicine 03/15/15 [facility] 11/23/24 documented as of this encounter
--- OUTSIDE RECORDS SUMMARY | 2024-12-25 08:09 | XMS_ITS | Encounter Summary ---
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 I called to inform her, that she needs to contact her insurance [facility] to make the request, because the referral needs to go through them. I reached a voicemail, and left a msg with the above information. I asked her to contact me at ext [phone], if she has any questions. Encounter Details Date Type Department Care Team (Late st Contact Info) Description 10/20/2022 Refill [facility] MEDICINE [address] [place] [address] Name, MD Hill [address] [place] [address] Social History Tobacco Use Types Packs/Day Years [...] EDT The pt requested to have her ROOFING SUPERVISOR services reinstated by [facility]. I called to inform her, that she needs to contact her insurance [facility] to make the request, because the referral needs to go through them. I reached a voicemail, and left a msg with the above information. I asked her to contact me at ext [phone], if she has any questions. * Telephone Encounter - Hope Zora - 10/22/2022 10:20 AM EDT Pt walked in requesting a call from PCP or nurses, because she has a question about data collection interviewer services and a form that her pcp signed and she has not hear anything from no one she doesn't specify exactly what she needs, she just wants the call. I told her to go to medical records she said they don't havethe form. Best # to call is [phone] documented in this encounter Plan of Treatment Upcoming Encounters Date Type Department Care Team (Late st Contact Info) Description 03/18/2025 9:45 AM EST Office Visit [facility] MEDICINE [address] [place] [address] Name, MD Hill [address] [place] [address] documented as of this encounter Visit Diagnoses Not on filedocumented in this encounter Additional Health Concerns Assessment Noted Time PHQ-9 Depression Total Score: 19 023 1:35 PM EDT documented as of this encounter Care Teams Manager Cardiovascular Relationship Specialty Start Date End Date Name, MD Hill [address] [place] [address] PCP - General Family Medicine 03/15/15 [facility] 11/23/24 documented as of this encounter
--- OUTSIDE RECORDS SUMMARY | 2024-12-25 08:09 | XMS_ITS | Encounter Summary ---
Author Organization [employer] Address [address] [facility] 7t [place] [address] Care Team Providers Care Director Of Respiratory Therapy Name Role Phone Name, Hill HERNANDEZ Primary Care Provider [phone] Reason for Visit * Reason Comments Med Refill Encounter Details Date Type Department Care Team ([facility] st Contact Info) Description 07/02/2024 Refill [facility] MEDICINE [address] [place], [place] [phone] Name, MD Hill [address] [place] [address] Social History Tobacco Use Types Packs/Day Years [...] Description 03/18/2025 9:45 AM EST Office Visit [facility] MEDICINE [address] [place] [address] Name, MD Hill [address] [place] [address] documented as of this encounter Visit Diagnoses Not on filedocumented in this encounter Additional Health Concerns Assessment Noted Time PHQ-9 Depression Total Score: 4 03/17/19 25 2:14 PM EST documented as of this encounter Care Teams Director Of Respiratory Therapy Relationship Specialty Start Date End Date Name, MD Hill [address] [place] [address] PCP - General Family Medicine 03/15/15 [facility] 11/23/24 documented as of this encounter
--- OUTSIDE RECORDS SUMMARY | 2024-12-25 08:09 | XMS_ITS | Encounter Summary ---
Author Organization [employer] Address [address] [facility] 7t [place] [address] Care Team Providers Care Weight Clerk Name Role Phone Name, Hill HERNANDEZ Primary Care Provider [phone] Reason for Visit * Reason Onset Date Comments Call Back Request 02/01/2023 Encounter Details Date Type Department Care Team ([facility] st Contact Info) Description 02/01/2023 Telephone [facility] MEDICINE [address] [place], [place] [phone] Name, MD Hill [address] [place] [address] Call Back Request Social History Tobacco Use [...] 2:16 PM EST T/C to pt. Through [employer] id - [id number] for below message to inform submit paperwork regarding DIRECT SALES PROFESSIONAL hours at medical records/ forms dept. Pt. Verbally agreed and understood. * Telephone Encounter - Aylin Duncan - 02/01/2023 3:37 PM EST Tc from pt requesting a call back in regards paperwork for DIRECT SALES PROFESSIONAL hours. documented in this encounter Plan of Treatment Upcoming Encounters Date Type Department Care Team (Late st Contact Info) Description 03/18/2025 9:45 AM EST Office Visit [facility] MEDICINE [address] [place] [address] Name, MD Hill [address] [place] [address] documented as of this encounter Visit Diagnoses Not on filedocumented in this encounter Additional Health Concerns Assessment Noted Time PHQ-9 Depression Total Score: 19 023 1:35 PM EDT documented as of this encounter Care Teams Weight Clerk Relationship Specialty Start Date End Date NameHill MD [address] [place] [address] PCP - General Family Medicine 03/15/15 [facility] 11/23/24 documented as of this encounter
--- OUTSIDE RECORDS SUMMARY | 2024-12-25 08:09 | XMS_ITS | Encounter Summary ---
Author Organization [facility] Address [address] [place] [address] Care Team Providers Care Physician In Private Practice Name Role Phone Gina Fonseca MD Primary Care Provider [phone] Encounter Details Date Type Department Care Team (Late Contact Info) Description 06/10/2024 Lab Requisition [facility] [address] [facility] [place] [address] Behzad Conway MD [address] [place] [address] Anemia, unspecified Social History Tobacco Use Types [...] PM EST Office Visit [facility] [place] [address] [place] [address] [address] [place] [phone] Vicente Pearce, DPM [address] [place] [phone] documented as of this encounter Visit Diagnoses Diagnosis Anemia, unspecified documented in this encounter Care Teams Physician In Private Practice Relationship Specialty Start Date End Date Gina Fonseca MD [address] [place], [place] PCP - General Internal Medicine 10/16/21 documented as of this encounter
--- OUTSIDE RECORDS SUMMARY | 2024-12-25 08:09 | XMS_ITS | Encounter Summary ---
Author Organization [facility] Address [address] [place] [address] Care Team Providers Care Display Manager Name Role Phone Gina Fonseca MD Primary Care Provider [phone] Encounter Details Date Type Department Care Team (Late Contact Info) Description 06/04/2024 Lab Requisition [facility] Lab [address] [facility] [place] [address] Behzad Conway MD [address] [place] [address] Anemia, unspecified; Type 2 diabetes mellitus without [...] PM EST Office Visit [facility] [place] [address] [facility] [address] [place] [phone] Vicente Pearce DPM 230 [place] [phone] documented as of this encounter Procedures Procedure Name Priority Date/Time Associated Diagnosis Comments COMPLETE BLOOD COUNT Routine 06/04/2024 7:34 AM EDT Anemia, unspecified Type 2 diabetes mellitus without complications (CMS/HCC V24, CMS/HCC V28) HEMOGLOBIN A1C Routine 06/04/2024 7:34 AM EDT Anemia, unspecified Type 2 diabetes mellitus without complications ([facility] V24, [facility] V28) COMPREHENSIVE METABOLIC PANEL Routine 06/04/2024 7:34 AM EDT Anemia, unspecified Type 2 diabetes mellitus without complications ([facility] V24, [facility] V28) documented in this encounter Results * [...] ORDERABLES Final Result [facility] [address] [place] [address], * (ABNORMAL) Comprehensive metabolic panel (06/04/2024 7:34 AM EDT) [facility] Sodium 139 133 - 145 mmol/L LAB CHEMISTRY METHOD 06/04/2024 10:53 AM EDT [facility] Potassium 4.6 3.5 - 5.5 mmol/L LAB CHEMISTRY METHOD 06/04/2024 10:53 AM EDT [facility] Chloride 105 96 - 110 mmol/L LAB CHEMISTRY METHOD 06/04/2024 10:53 AM EDT [facility] CO2 30 21 - 32 mmol/L LAB CHEMISTRY METHOD 06/04/2024 10:53 AM [facility] Anion Gap 4 3 - 11 LAB CHEMISTRY METHOD 06/04/2024 10:53 AM [facility] Glucose 105(H) 70 - 100 mg/dL LAB CHEMISTRY METHOD 06/04/2024 10:53 AM [facility] BUN 18 5 - 25 mg/dL LAB CHEMISTRY METHOD 06/04/2024 10:53 AM [facility] Creatinine 0.74 0.50 - 1.10 mg/dL LAB CHEMISTRY METHOD 06/04/2024 10:53 AM [facility] eGFR 83 >=60 mL/min/1. 73m2 LAB CHEMISTRY METHOD 06/04/2024 10:53 AM [facility] Comment:Calculation based on the Chronic Kidney Disease Epidemiology Collaboration (CKD-EPI) equation refit without adjustment for race. BUN/Creatinine Ratio 24.3 LAB CHEMISTRY METHOD 06/04/2024 10:53 AM [facility] Calcium 9.2 8.5 - 10.5 mg/dL LAB CHEMISTRY METHOD 06/04/2024 10:53 AM [facility] AST (SGOT) 37 10 - 42 unit/L LAB CHEMISTRY METHOD 06/04/2024 10:53 AM [facility] ALT (SGPT) 38 10 - 60 unit/L LAB CHEMISTRY METHOD 06/04/2024 10:53 AM [facility] Alkaline Phosphatase 112 42 - 121 unit/L LAB CHEMISTRY METHOD 06/04/2024 10:53 AM [facility] Total Protein 7.3 6.0 - 8.0 g/dL LAB CHEMISTRY METHOD 06/04/2024 10:53 AM [facility] Albumin 3.7 3.2 - 5.0 g/dL LAB CHEMISTRY METHOD 06/04/2024 10:53 AM [facility] Total Bilirubin 0.4 0.0 - 1.4 mg/dL LAB CHEMISTRY METHOD 06/04/2024 10:53 AM EDT [facility] Blood Venous blood specimen / Unknown Venipuncture / Unknown 06/04/2024 7:34 AM EDT 06/04/2024 9:59 AM EDT Behzad Conway MD LAB BLOOD ORDERABLES Final Result [facility] [address] [place] [address], * (ABNORMAL) Complete blood count (06/04/2024 7:34 AM EDT) WBC 5.6 4.8 - 10.8 K/mcL LAB HEMETOLOGY METHOD 06/04/2024 10:31 AM [facility] RBC 4.10 3.80 - 4.80 M/mcL LAB HEMETOLOGY METHOD 06/04/2024 10:31 AM [facility] Hemoglobin 12.7 11.5 - 16.0 g/dL LAB HEMETOLOGY METHOD 06/04/2024 10:31 AM [facility] Hematocrit 39.9 35.0 - 47.0 % LAB HEMETOLOGY METHOD 06/04/2024 10:31 AM [facility] MCV 97.8 79.0 - 98.0 FL LAB HEMETOLOGY METHOD 06/04/2024 10:31 AM EDT [facility] MCH 31.1 27.0 - 32.0 pcg LAB HEMETOLOGY METHOD 06/04/2024 10:31 AM [facility] MCHC 31.8(L) 32.0 - 37.0 g/dL LAB HEMETOLOGY METHOD 06/04/2024 10:31 AM [facility] RDW 13.2 11.0 - [...] ORDERABLES Final Result [facility] [address] [place] [address], documented in this encounter Visit Diagnoses Diagnosis Anemia, unspecified Type 2 diabetes mellitus without complications (CMS/HCC V24, CMS/HCC V28) documented in this encounter Care Teams Display Manager Relationship Specialty Start Date End Date Gina Fonseca MD [address] [place] [address] PCP - General Internal Medicine 10/16/21 documented as of this encounter
--- OUTSIDE RECORDS SUMMARY | 2024-12-25 08:09 | XMS_ITS | Clinical Summary ---
Author Organization [facility] Address [address] [facility] [address] [place] [address] Phone Care Team Providers Care [employer] Combat Skills Name Role Phone Name, Hill HERNANDEZ Primary Care Provider [phone] Allergies No known active allergies Medications metformin [...] topic Medical Devices Not on file Insurance [facility] MED[facility] REPLACEMENT Member Subscriber Plan / Payer (Ef fective 2019-Present) Name:Azeb Kennedy Relation to Subscriber:Self Name:Azeb Kennedy Payer ID:[id number] (NAIC) Group ID:Not on file Type:Medicare Address: [place] [id number] MEDICARE REPLACEMENT [id number] [place] [id number] [facility] MEDICARE [address]EMENT [place] [address] [place] [address] MEDICARE REPLACEMENT [facility] MED[facility]ARE REPLACEMENT MEDICARE [place] [address] MEDICARE REPLACEMENT [place] [id number] Care Teams [employer] Combat Skills Relationship Specialty Start Date End Date Name, MD Hill [address] [place] [address] PCP - General Geriatric Psychiatry 01/07/20 Additional Source Comments The information contained in this document represents components of the legal health record. It is not the complete legal health record.[facility]
--- OUTSIDE RECORDS SUMMARY | 2024-12-25 08:09 | XMS_ITS | Encounter Summary ---
Author Organization [employer] Address [address] [facility] 7t [place] [address] Care Team Providers Care Administrative Assistant Receptionist Name Role Phone Name, Hill HERNANDEZ Primary Care Provider [phone] Reason for Visit * Reason Onset Date Comments Pre Op 10/02/2023 Encounter Details Date Type Department Care Team ([facility] st Contact Info) Description 10/02/2023 Telephone [facility] MEDICINE [address] [place], [place] [phone] Name, MD Hill [address] [place] [address] Pre Op Social History Tobacco Use Types [...] No Surgeon's name: Tomás Hopkins Facility name: [facility] Surgeon's office number: [phone] Surgeon's office fax number: [phone] Contact name: Yohana documented in this encounter Plan of Treatment Upcoming Encounters Date Type Department Care Team (Late st Contact Info) Description 03/18/2025 9:45 AM EST Office Visit [facility] MEDICINE [address] [place] [address] Name, MD Hill [address] [place] [address] documented as of this encounter Visit Diagnoses Not on filedocumented in this encounter Additional Health Concerns Assessment Noted Time PHQ-9 Depression Total Score: 12 05/08/ 024 1:00 PM EDT documented as of this encounter Care Teams Administrative Assistant Receptionist Relationship Specialty Start Date End Date Name, MD Hill [address] [place] [address] PCP - General Family Medicine 03/15/15 [facility] 11/23/24 documented as of this encounter
--- OUTSIDE RECORDS SUMMARY | 2024-12-25 08:09 | XMS_ITS | Encounter Summary ---
Author Organization [email or web address] Address [address] [facility] 7t [place] [address] Care Team Providers Care Painting Manager Name Role Phone Name, Hill HERNANDEZ Primary Care Provider Encounter Details Date Type Department Care Team (Latest Contact Info) Description 01/06/2020 Abstract [facility] Dental, Provider, DDS Social History [...] 03/18/2025 9:45 AM EST Office Visit [facility] MEDICINE [address] [place] [address] Name, MD Hill [address] [place] [address] documented as of this encounter Visit Diagnoses Not on filedocumented in this encounter Care Teams Painting Manager Relationship Specialty Start Date End Date Name, MD Hill [address] [place] [address] PCP - General Family Medicine 03/15/15 [facility] 11/23/24 documented as of this encounter
--- OUTSIDE RECORDS SUMMARY | 2024-12-25 08:09 | XMS_ITS | Encounter Summary ---
Author Organization [employer] Address [address] [facility] 7t [place] [address] Care Team Providers Care Wind Turbine Mechanic Name Role Phone Name, Hill HERNANDEZ Primary Care Provider Encounter Details Date Type Department Care Team (Latest Contact Info) Description 04/21/2019 Abstract [facility] Dental, Provider, DDS Social History [...] 03/18/2025 9:45 AM EST Office Visit [facility] MEDICINE [address] [place] [address] Name, MD Hill [address] [place] [address] documented as of this encounter Visit Diagnoses Not on filedocumented in this encounter Care Teams Wind Turbine Mechanic Relationship Specialty Start Date End Date Name, MD Hill [address] [place] [address] PCP - General Family Medicine 03/15/15 [facility] 11/23/24 documented as of this encounter
--- OUTSIDE RECORDS SUMMARY | 2024-12-25 08:09 | XMS_ITS | Clinical Summary ---
Author Organization [employer] Address [address] [facility] 7t [place] [address] Care Team Providers Care Methods Study Analyst Name Role Phone Name, Hill HERNANDEZ Primary Care Provider [phone] Allergies No known active allergies Medications * This document contains information received from the source organization and may not represent a complete record from that organization. Lancets (OneTouch Delica Plus [id number]) misc TEST BLOOD SUGAR THREE TIMES DAILY [...] 02/22/20 23 Active Lancets (OneTouch Delica Plus [id number]) miscIndications :Diabetes mellitus type 2 in obese [...] use of insulin ([facility]),Essential hypertension TAKE 1 TABLET BY MOUTH [...] family illness. Azeb's boyfriend unexpectedly in the [place]. They have been together for about four years. Azeb lives alone and reports having sense of isolation and feeling lonely. The passing of her boyfriend has been identified as main stressor. PLAN: (check all that apply) Further services needed, but declined Behavioral Health Integration Plan Internal Follow up with [facility] Patient Self Plan Patient to utilize skills provided in intervention , Patient [facility] as needed, Comply with medication , [...] family illness. Azeb's boyfriend unexpectedly in the [place]. They have been together for about four years. Azeb lives alone and reports having sense of isolation and feeling lonely. The passing of her boyfriend has been identified as main stressor. PLAN: (check all that apply) Further services needed, but declined Behavioral Health Integration Plan Internal Follow up with [facility] Patient Self Plan Patient to utilize skills provided in intervention , Patient to reach out to [facility] team as needed, Comply with [...] Type Department Care Team Description 12/17/[address] [address] Hill Dickson MD Med Refill 12/14/2024 10:00 AM EDT Office Visit [address] [address] Hill Dickson MD Type 2 diabetes mellitus with other specified complication, without long-term current use of insulin (HCC) (Primary Dx); Hypertension, unspecified type; Acute vaginitis; Major depression, chronic; Primary insomnia; Chronic right shoulder pain; Primary osteoarthritis of both knees; Vaccine refused by patient 12/14/2024 Travel 12/11/[address] [address] Hill Dickson MD chart prep 12/01/[address] [address] Hill Dickson MD 11/20/2024 Orders Only [facility] External Provider, [facility] 10/29/2024 8:40 AM EDT Office Visit [facility] [address] [place] [address] Alejo Miranda MD Right shoulder pain, unspecified chronicity (Primary Dx) 10/29/2024 Travel 10/19/2024 Telephone [facility] [address] [place] [address] Alejo Miranda MD 10/16/2024 10:00 AM EDT [facility] [address] [address] Alejo Miranda MD Right shoulder pain, unspecified chronicity (Primary Dx) 10/05/2024 9:00 AM EDT [facility] [address] [address] Vaishali Gee MD COVID-19 (Primary Dx) 10/05/2024 Travel 10/01/2024 8:40 AM EDT Office Visit [facility] [address] [address] Alejo Miranda MD COVID-19 (Primary Dx); Right knee pain, unspecified chronicity 10/01/[address] [facility] [place] [address] Livia Tracy JN october recalls 10/01/2024 Travel 09/24/2024 Orders Only [facility] [address] [facility] [place] [address] Sharonda Stern NP Primary insomnia (Primary Dx) from Last 3 Months Immunizations Immunization Administration [...] Description 03/18/2025 9:45 AM EST Office Visit [facility] [address] [place] [address] Name, MD Hill [address] [place] [address] Health Maintenance Due Date Last Done Comments [...] complication, without long-term current use of insulin ([facility]) LIPID PANEL, STANDARD Routine 06/11/2024 9:40 AM EDT Type 2 diabetes mellitus with other specified complication, without long-term current use of insulin ([facility]) PROPHYLAXIS - ADULT Routine 05/27/2023 [...] Media Lot # [id number] Lot# Expiration Date 41,377 Blood 12/14/2024 10:0 7 AM EDT Hill Name POINT OF CARE TEST ENTER/EDIT OR DERABLES Final Result * POCT Glucose (12/14/2024 10:07 AM EDT) Glucose Blood, POC 149 60 - 200 mg/dL QC Media Lot # [id number] Lot# Expiration Date Blood Capillary blood specimen / Unknown 12/14/2024 10:07 AM EDT Hill Dickson MD POINT OF CARE TEST ENTER/EDIT OR DERABLES Final Result * MR Shoulder w/o Contrast Right (12/01/2024 7:45 PM EDT) Anatomical Region Laterality Modality Upper Extremities, Shoulder Right Magn etic Resonance 12/01/2024 7:45 PM EDT Narrative 12/03/2024 8:19 AM EDT [place] [address] Magnetic Resonance Report Signed Patient: Azeb Kennedy MR#: [id number] 4 : 1945 Acct:[id number] Age/Sex: 79 / F ADM Date: 11/20/24 Loc: HO.MRI Attending Dr: Thiago Adames MD Ordering Physician: Thiago Adames MD Date of Service: 12/01/24 Procedure(s): MR shoulder RT wo con Accession Number(s): [id number] cc: Name,Hill HERNANDEZ; Thiago Adames MD Reason [...] in OV> 12/03/24815 DD/ 44 TD/TT: 12/01/242010 Hoe Runner: LUCY Procedure Note Donotuseinterpreter, Image - 12/03/2024 [place] [address] Magnetic Resonance Report Signed Patient: Abraham Kennedy#: [id number] 4 : 8Acct:[id number] Age/Sex: 79 / FADM Date: 11/20/24 Loc: HO.MRI Attending Dr: Thiago Adames MD Ordering Physician: Thiago Adames MD Date of Service: 12/01/24 Procedure(s): MR shoulder RT wo con Accession Number(s): [id number] cc: Name,Hill HERNANDEZ; Thiago Adames MD Reason [...] in OV> 12/03/24815 DD/ 44 TD/TT: 12/01/242010 Hoe Runner: LUCY [facility] External Provider IMG MRI PROCEDURES Final Result * XR Knee 4+ Views Left (11/20/2024 12:27 PM EDT) Anatomical Region Laterality Modality Lower Extremities, Knee Left Radiogra phic Imaging 11/20/2024 12:2 7 PM EDT Narrative 11/20/2024 12:35 PM EDT [address] [address] XRay Report Signed Patient: Azeb Kennedy MR#: [id number] 4 : 1945 Acct:[id number] Age/Sex: 79 / F ADM Date: 11/20/24 Loc: HO.ED Attending Dr: Ordering Physician: Radha Cagle NP Date of Service: 11/20/24 Procedure(s): XR knee LT 4V Accession Number(s): [id number] cc: Hill Dickson MD; Radha Cagle NP [...] 11/20/24 1232 DD/ 1227 TD/TT: 11/20/24 1227 Hoe Runner: Procedure Note Donotuseinterpreter, Image - 11/20/2024 [place] [address] XRay Report Signed Patient: Abraham Kennedy#: [id number] 4 : 8Acct:[id number] Age/Sex: 79 / FADM Date: 11/20/24 Loc: HO.ED Attending Dr: Ordering Physician: Radha Cagle NP Date of Service: 11/20/24 Procedure(s): XR knee LT 4V Accession Number(s): [id number] cc: Hill Dickson MD; Radha Cagle NP [...] 11/20/24 1232 DD/ 1227 TD/TT: 11/20/24 1227 Hoe Runner: [facility] External Provider IMG XR PROCEDURES Final Result * CT Cervical Spine w/o Contrast (11/20/2024 10:26 AM EDT) Anatomical Region Laterality Modality Spine, C-spine Computed Tomogra phy 11/20/2024 10:2 6 AM EDT Narrative 11/20/2024 11:10 AM EDT [place] [address] CT Scan Report Signed Patient: Azeb Kennedy MR#: [id number] 4 : 1945 Acct:[id number] Age/Sex: 79 / F ADM Date: 11/20/24 Loc: HO.ED Attending Dr: Ordering Physician: Radha Cagle NP Date of Service: 11/20/24 Procedure(s): CT cervical spine wo IV con Accession Number(s): [id number] cc: Hill Dickson MD; Radha Cagle NP Report Number: [id number]: Total DLP = 367.00 mGy-cm Reason for [...] 11/20/24 1107 DD/ 1026 TD/TT: 11/20/24 1054 Hoe Runner: Procedure Note Donotuseinterpreter, Image - 11/20/[address] [address] [address] Scan Report Signed Patient: Abraham Kennedy#: [id number] 4 : 8Acct:[id number] Age/Sex: 79 / FADM Date: 11/20/24 Loc: HO.ED Attending Dr: Ordering Physician: Radha Cagle NP Date of Service: 11/20/24 Procedure(s): CT cervical spine wo IV con Accession Number(s): [id number] cc: Name,Hill HERNANDEZ; Radha Cagle NP Report Number: [id number]: Total DLP = 367.00 mGy-cm Reason for [...] 11/20/24 1107 DD/ 1026 TD/TT: 11/20/24 1054 Hoe Runner: [facility] External Provider IMG CT PROCEDURES Final Result * CT Head w/o Contrast (11/20/2024 10:26 AM EDT) Anatomical Region Laterality Modality Head, Neck Computed Tomogra phy 11/20/2024 10:2 6 AM EDT Narrative 11/20/2024 11:05 AM EDT [place] [address] CT Scan Report Signed Patient: Azeb Kennedy MR#: [id number] 4 : 1945 Acct:[id number] Age/Sex: 79 / F ADM Date: 11/20/24 Loc: HO.ED Attending Dr: Ordering Physician: Radha Cagle NP Date of Service: 11/20/24 Procedure(s): CT head/brain wo IV con Accession Number(s): [id number] cc: Hill Dickson MD; Radha Cagle NP Report Number: [id number]: Total DLP = 760.00 mGy-cm Reason for [...] 11/20/24 1103 DD/ 1026 TD/TT: 11/20/24 1054 Hoe Runner: Procedure Note Donotuseinterpreter, Image - 11/20/[address] [address] [address] Scan Report Signed Patient: Abraham Kennedy#: [id number] 4 : 8Acct:[id number] Age/Sex: 79 / FADM Date: 11/20/24 Loc: HO.ED Attending Dr: Ordering Physician: Radha Cagle NP Date of Service: 11/20/24 Procedure(s): CT head/brain wo IV con Accession Number(s): [id number] cc: Yessi,Hill HERNANDEZ; Radha Cagle NP Report Number: [id number]: Total DLP = 760.00 mGy-cm Reason for [...] 11/20/24 1103 DD/ 1026 TD/TT: 11/20/24 1054 Hoe Runner: us [facility] External Provider IMG CT PROCEDURES Final Result * XR Shoulder 2+ Views Right (10/16/2024 10:50 AM EDT) Anatomical Region Laterality Modality Upper Extremities, Shoulder Right Radi ographic Imaging 10/16/2024 10:5 0 AM EDT Narrative 10/16/2024 11:41 AM EDT [facility] [address] [place] [address] XRay Report Signed Patient: Azeb Kennedy MR#: [id number] 4 : 1945 Acct:[id number] Age/Sex: 79 / F ADM Date: 10/16/24 Loc: HO.HHCX Attending Dr: Alejo Miranda MD Ordering Physician: Alejo Miranda MD Date of Service: 10/16/24 Procedure(s): XR shoulder RT min 2V Accession Number(s): [id number] cc: Alejo Miranda MD EXAMINATION: XR SHOULDER, [...] 10/16/24 1139 DD/ 1050 TD/TT: 10/16/24 1100 Hoe Runner: Procedure Note Donotuseinterpreter, Image - 10/16/2024 [facility] [address] [place] [address] XRay Report Signed Patient: Clifford KennedyR#: [id number] 4 : 8Acct:[id number] Age/Sex: 79 / FADM Date: 10/16/24 Loc: HO.HHCX Attending Dr: Alejo Miranda MD Ordering Physician: Alejo Miranda MD Date of Service: 10/16/24 Procedure(s): XR shoulder RT min 2V Accession Number(s): [id number] cc: Alejo Miranda MD EXAMINATION: XR SHOULDER, [...] 10/16/24 1139 DD/ 1050 TD/TT: 10/16/24 1100 Hoe Runner: Alejo Miranda MD IMG XR PROCEDURES Final Result * XR Knee 3 Views Right (10/16/2024 10:12 AM EDT) Anatomical Region Laterality Modality Lower Extremities, Knee Right Radiogra phic Imaging 10/16/2024 10:1 2 AM EDT Narrative 10/16/2024 11:47 AM EDT [facility] [address] [place] [address] XRay Report Signed Patient: Azeb Kennedy MR#: [id number] 4 : 1945 Acct:[id number] Age/Sex: 79 / F ADM Date: 10/16/24 Loc: JOSEPH Attending Dr: Alejo Miranda MD Ordering Physician: Alejo Miranda MD Date of Service: 10/16/24 Procedure(s): XR knee RT 3V Accession Number(s): [id number] cc: Alejo Miranda MD EXAMINATION: XR KNEE, [...] 10/16/24 1144 DD/ 1012 TD/TT: 10/16/24 1100 Hoe Runner: Procedure Note Donotuseinterpreter, Image - 10/16/2024 [place] [address] XRay Report Signed Patient: Abraham Kennedy#: [id number] 4 : 8Acct:[id number] Age/Sex: 79 / FADM Date: 10/16/24 Loc: RHINAX Attending Dr: Alejo Miranda MD Ordering Physician: Alejo Miranda MD Date of Service: 10/16/24 Procedure(s): XR knee RT 3V Accession Number(s): [id number] cc: Alejo Miranda MD EXAMINATION: XR KNEE, [...] 10/16/24 1144 DD/ 1012 TD/TT: 10/16/24 1100 Hoe Runner: Alejo Miranda MD IMG XR PROCEDURES Final Result * POCT COVID-19 Ag Ribeiro ID NOW (10/05/2024 9:15 AM EDT) Only the most recent of2 resultswithin the time period is included. [facility] Coronavirus Antigen PCR Negative Negative, Indeterminate, None Detected, Invalid, Specimen unsatisfactory for evaluation, Weakly Positive, 2+ Swab 10/05/2024 9:15 AM EDT Vaishali Gee MD POINT OF CARE TEST ENTER/E DIT ORDERABLES Final Result * Influenza B (ID NOW Rapid Molecular) (10/01/2024 8:54 AM EDT) [facility] Influenza B Negative Negative, Indeterminate [facility] Swab 10/01/2024 8:54 AM EDT Alejo Miranda MD POINT OF CARE TEST ENTER/EDIT OR DERABLES Final Result [facility] [address] [place] [phone] * Influenza A (ID NOW Rapid Molecular) (10/01/2024 8:54 AM EDT) [facility] Influenza A Negative Negative, Indeterminate [facility] Swab 10/01/2024 8:54 AM EDT Alejo Miranda MD POINT OF CARE TEST ENTER/EDIT OR DERABLES Final Result Performing Organization Address [facility] Co de Phone Number [facility] [address] [place] [phone] * Albumin, Random Urine W/Creatinine (06/11/2024 9:40 AM EDT) Creatinine, Urine 93.85 mg/dL [facility] Microalbumin Urine 25.0 mg/L [facility] Microalbum Creatinine Ratio Ur 26.6 <30 ug/mg cr [facility] Comment:Albumin/Creatinine R atio Reference Ranges: Normal: < 30 ug/mg creatinine Microalbuminuria: 30 - 300 ug/mg creatinineClinical Albuminuria: > 300 ug/mg creatinine Urine (Urine, Random) 06/11/2024 9:40 AM EDT 06/11/2024 11:25 AM EDT Hill Dickson MD LAB URINE ORDERABLES Final Resul t Performing Organization Address [facility] Co de Phone Number [facility] [address] [place] [phone] * (ABNORMAL) Lipid Panel, Standard (06/11/2024 9:40 AM EDT) Triglycerides 144 <150 mg/dL [facility] Comment:Desirable Triglyceri de: less than 150 mg/dLBorderline High Triglyceride 150-199 mg/dLHigh Triglyceride: 200-499 mg/dLVery High Triglyceride: greater than or equal to 5OO mg/dL Cholesterol 195 <200 mg/dL [facility] Comment:Desirable Cholestero l: less than 200 mg/dLBorderline High Cholesterol: 200-239 mg/dLHigh Cholesterol: greater than 239 mg/dL LDL Cholesterol Calculated 115(H) <100 mg/dL [facility] Comment:Desirable LDL: less than 100 mg/dLNear Optimal/Above Optimal LDL: 110- 129 mg/dLBorderline High LDL: 130-159 mg/dLHigh LDL: 160-189 mg/dLVery High LDL: greater than or equal to 190 mg/dL HDL Cholesterol 52 >40 mg/dL [facility] Comment:Desirable HDL: great er than 40 mg/dL Note: This HDL assay may give artificially low results in patients with liver disease. Blood Venous blood specimen / Unknown 06/11/2024 9:40 AM EDT 06/11/2024 11:17 AM EDT Hill Dickson MD LAB BLOOD ORDERABLES Final Resul t [facility] [address] [place] [phone] * Diabetes Eye Exam (03/22/2023) Eye Exam Normal Normal, BIRADS 0 , BIRADS 1 , BIRADS 2, BIRADS 3 , BIRADS 4+ us Hill Dickson MD HEALTH MAINTENANCE Final Result * Colonoscopy (03/03/2014 2:40 PM EST) Colonoscopy Normal Normal Narrative Hafsa Lares - 03/03/2014 2:40 PM EST Recommended 10 year follow up [facility] Provider HEALTH MAINTENANCE Final Result * Hepatitis C Antibody (09/15/2012) Hepatitis C Antibody Nonreactive Blood Hill Dickson MD HEALTH MAINTENANCE Final Result from Last 3 Months or Most Recently Relevant to Health Maintenance Insurance [facility] STANDARD FORMERLY [facility] [employer] (HMO D-SNP) [address] [place] [address] [facility] [address] [place] [address] [address] [address] [place] [address] [address] [address] [place] [address] Care Teams Methods Study Analyst Relationship Specialty Start Date End Date Name, MD Hill [address] [place] [address] PCP - General Family Medicine 03/15/15 [facility] 11/23/24
--- OUTSIDE RECORDS SUMMARY | 2024-12-25 08:09 | XMS_ITS | Encounter Summary ---
Author Organization [employer] Address [address] [facility] 7t [place] [address] Care Team Providers Care Blocker And Cutter Contact Lens Name Role Phone Name, Hill HERNANDEZ Primary Care Provider [phone] Encounter Details Date Type Department Care Team (Latest Contact Info) Description 07/26/2021 Abstract [facility] CONVERSIONS Dental, Provider, DDS Social History [...] 03/18/2025 9:45 AM EST Office Visit [facility] [address] [place] [address] Name, MD Hill [address] [place] [address] documented as of this encounter Visit Diagnoses Not on filedocumented in this encounter Care Teams Blocker And Cutter Contact Lens Relationship Specialty Start Date End Date Name, MD Hill [address] [place] [address] PCP - General Family Medicine 03/15/15 [facility] 11/23/24 documented as of this encounter
--- OUTSIDE RECORDS SUMMARY | 2024-12-25 08:09 | XMS_ITS | Encounter Summary ---
Author Organization [employer] Address [address] [facility] 7t [place] [address] Care Team Providers Care Party Host Name Role Phone Name, Hill HERNANDEZ Primary Care Provider [phone] Reason for Visit * Reason Onset Date Comments requesting a call 09/04/2022 Encounter Details Date Type Department Care Team ([facility] st Contact Info) Description 09/04/2022 Telephone [facility] MEDICINE [address] [place] [phone] Name, MD Hill [address] [place] [address] requesting a call Social History Tobacco Use [...] - 09/05/2022 2:46 PM EDT T/C to [phone] for below message through [facility] id - [id number] for below message, pt. States she is all set, she does not has any question right now. Pt. Advised to give call to [facility] if any questions or concerns. * Telephone Encounter - Hemalatha Rodriguez - 09/04/2022 2:39 PM EDT Tc from pt requesting a call. Pt did not go in to detail and is aware of upcoming appointment. Please contact pt at [phone] (Somali speaker) documented in this encounter Plan of Treatment Upcoming Encounters Date Type Department Care Team (Late st Contact Info) Description 03/18/2025 9:45 AM EST Office Visit [facility] [address] [place] [phone] Name, MD Hill [address] [place] [address] documented as of this encounter Visit Diagnoses Not on filedocumented in this encounter Additional Health Concerns Assessment Noted Time PHQ-9 Depression Total Score: 19 023 1:35 PM EDT documented as of this encounter Care Teams Party Host Relationship Specialty Start Date End Date Name, MD Hill [address] [place] [phone] PCP - General Family Medicine 03/15/15 [facility] 11/23/24 documented as of this encounter
--- OUTSIDE RECORDS SUMMARY | 2024-12-25 08:09 | XMS_ITS | Encounter Summary ---
Author Organization [employer] Address [address] [facility] 7t [place] [address] Care Team Providers Care Bar Machine Operator Multiple Spindle Name Role Phone Name, Hill HERNANDEZ Primary Care Provider [phone] Encounter Details Date Type Department Care Team (Latest Contact Info) Description 04/15/2018 Abstract [facility] CONVERSIONS Dental, Provider, DDS Social [...] Description 03/18/2025 9:45 AM EST Office Visit [facility]ICINE [address] [place] [address] Name, MD Hill [address] [place] [address] documented as of this encounter Visit Diagnoses Not on filedocumented in this encounter Care Teams Bar Machine Operator Multiple Spindle Relationship Specialty Start Date End Date Name, MD Hill [address] [place] [address] PCP - General Family Medicine 03/15/15 [facility] 11/23/24 documented as of this encounter
--- OUTSIDE RECORDS SUMMARY | 2024-12-25 08:09 | XMS_ITS | Encounter Summary ---
Author Organization [employer] Address [address] [facility] 7t [place] [address] Care Team Providers Care Windshield Installer Name Role Phone Name, Hill HERNANDEZ Primary Care Provider [phone] Reason for Visit * Reason Onset Date Comments Call Back Request 06/18/2024 Encounter Details Date Type Department Care Team ([facility] st Contact Info) Description 06/18/2024 Telephone [facility] [address] [place], [place] [phone] Name, MD Hill [address] [place] [address] Call Back Request Social History Tobacco Use [...] - 06/18/2024 3:17 PM EDT Tc from [place] with [facility] regarding ramelteon (Rozerem) 8 MG tablet requesting a call back from nurses to discuss alternative med. [phone] documented in this encounter Plan of Treatment Upcoming Encounters Date Type Department Care Team (Late st Contact Info) Description 03/18/2025 9:45 AM EST Office Visit [facility] [address] [place] [address] Name, MD Hill [address] [place] [address] documented as of this encounter Visit Diagnoses Not on filedocumented in this encounter Additional Health Concerns Assessment Noted Time PHQ-9 Depression Total Score: 4 03/17/19 25 2:14 PM EST documented as of this encounter Care Teams Windshield Installer Relationship Specialty Start Date End Date Name, MD Hill [address] [place] [address] PCP - General Family Medicine 03/15/15 [facility] 11/23/24 documented as of this encounter
--- OUTSIDE RECORDS SUMMARY | 2024-12-25 08:09 | XMS_ITS | Encounter Summary ---
Author Organization [employer] Address [address] [facility] [address] [place] [address] Care Team Providers Care Senior Data Quality Analyst Name Role Phone Name, Hill HERNANDEZ Primary Care Provider [phone] Encounter Details Date Type Department Care Team (Late st Contact Info) Description 01/21/2023 Telephone [facility] MEDICINE [address] [place], [place] [phone] Name, MD Hill [address] [place] [address] Social History Tobacco Use Types Packs/Day Years [...] Description 03/18/2025 9:45 AM EST Office Visit [facility] [address] [place] [address] Name, MD Hill [address] [place] [address] documented as of this encounter Visit Diagnoses Not on filedocumented in this encounter Additional Health Concerns Assessment Noted Time PHQ-9 Depression Total Score: 19 023 1:35 PM EDT documented as of this encounter Care Teams Senior Data Quality Analyst Relationship Specialty Start Date End Date Name, MD Hill [address] [place] [address] PCP - General Family Medicine 03/15/15 [facility] 11/23/24 documented as of this encounter
--- OUTSIDE RECORDS SUMMARY | 2024-12-25 08:09 | XMS_ITS | Encounter Summary ---
Author Organization [employer] Address [address] [facility] 7t [place] [address] Care Team Providers Care Flight Follower Name Role Phone Name, Hill HERNANDEZ Primary Care Provider [phone] Encounter Details Date Type Department Care Team ([facility] Contact Info) Description 03/26/2022 Orders Only [facility] MEDICINE [address] [place] [address] Jane Oneill LPN Social History Tobacco Use [...] 03/18/2025 9:45 AM EST Office Visit [facility] MEDICINE [address] [place] [address] Name, MD Hill [address] [place] [address] documented as of this encounter Visit Diagnoses Not on filedocumented in this encounter Care Teams Flight Follower Relationship Specialty Start Date End Date Name, MD Hill [address] [place] [address] PCP - General Family Medicine 03/15/15 [facility] 11/23/24 documented as of this encounter
--- OUTSIDE RECORDS SUMMARY | 2024-12-25 08:09 | XMS_ITS | Clinical Summary ---
Author Organization [address] [place] [address] Address [address] [place] [address] Phone Care Team Providers Care Tech Intern Name Role Phone Gina Fonseca MD Primary [...] right leg BREAST REDUCTION 2009 Bilateral PROCEDURE: UT BREAST REDUCTION Medical History Medical History Date Comments Unspecified essential hypertension DX:Unspecified essential hypertension DM type 2 (diabetes mellitus , type 2) ([facility] V24, [facility] V28) 12/24/2012 DX:DM type 2 (diabetes hailee itus, type 2) ([facility]) Family History Medical History Relation Name Comments Cataracts Father Glaucoma Father Breast cancer Mother 75 Breast cancer Sister 1 70 Blindness Neg Hx Macular degeneration Neg Hx Strabismus Neg Hx Relation Name Status Comments Daughter Alive HTN Father [place] and DM Mother 75 Breast cancer Sister [...] PM EST Office Visit [facility] [place] [address] [place] [phone] Vicente Pearce, DPM [address] [place] [phone] Health Maintenance Due Date Last Done Comments [...] (ABNORMAL) Hemoglobin A1c (06/04/2024 7:34 AM EDT) [facility] Hemoglobin A1C 6.6(H) <6.5 % LAB [...] Final Result [facility] [address] [place] [address], * (ABNORMAL) Comprehensive metabolic panel (06/04/2024 7:34 AM EDT) [facility] Sodium 139 133 - 145 mmol/L LAB CHEMISTRY METHOD 06/04/2024 10:53 AM [facility] Potassium 4.6 3.5 - 5.5 mmol/L LAB CHEMISTRY METHOD 06/04/2024 10:53 AM [facility] Chloride 105 96 - 110 mmol/L LAB CHEMISTRY METHOD 06/04/2024 10:53 AM [facility] CO2 30 21 [...] 06/04/2024 10:53 AM [facility] Blood Venous blood specimen / Unknown Venipuncture / Unknown 06/04/2024 7:34 AM EDT 06/04/2024 9:59 AM EDT us Behzad Conway MD LAB BLOOD ORDERABLES Final [facility] [address] [place] [address], * SCR MAMMO BI INCL CAD (08/11/2018 [...] C Screening (09/15/2012) Hepatitis C Screening abstracted [facility] Provider HEALTH MAINTENANCE Final Result from Last 3 Months or Most Recently Relevant to Health Maintenance Insurance [facility] MEDICARE Member Subscriber Plan / Payer (Ef fective 2023-Present) Name:Azeb Kennedy Relation to Subscriber:Self Name:Azeb Kennedy Payer ID:[id number] Group ID:[id number] Type:Not on file Address: [place] [address] [address] [phone] Care Teams Tech Intern Relationship Specialty Start Date End Date Gina Fonseca MD [address] [place], [place] PCP - General Internal Medicine 10/16/21
--- OUTSIDE RECORDS SUMMARY | 2024-12-25 08:09 | XMS_ITS | Encounter Summary ---
Author Organization [employer] Address [address] [facility] 7t [place] [address] Care Team Providers Care Senior Infrastructure Architect Name Role Phone Name, Hill HERNANDEZ Primary Care Provider [phone] Reason for Visit * Reason Onset Date Comments ER Follow-up 05/20/2024 Encounter Details Date Type Department Care Team ([facility] st Contact Info) Description 05/20/2024 Telephone [facility] MEDICINE [address], [place] [phone] Name, MD Hill [address] [place] [address] ER Follow-up Social History Tobacco Use Types [...] PM EDT Please obtain ED report from [facility] 05/19/24. Thank you. Triage call to Pt with [facility] Actionscript Developer ID [id number]. Pt is called for follow up post [...] Pt is advised to call back to [facility] if needed after 05/22/24 [...] ED visit on : Date: 05/19/24 Hospital[place] [facility] Seen for: Fall Symptomatic Yes pain on right arm *if yes message should go to Triage Patient advised will forward to team nurse for follow up documented in this encounter Plan of Treatment Upcoming Encounters Date Type Department Care Team (Late st Contact Info) Description 03/18/2025 9:45 AM EST Office Visit [facility] MEDICINE [address] [place] [address] Name, MD Hill [address] [place] [phone] documented as of this encounter Visit Diagnoses Not on filedocumented in this encounter Additional Health Concerns Assessment Noted Time PHQ-9 Depression Total Score: 4 03/17/19 25 2:14 PM EST documented as of this encounter Care Teams Senior Infrastructure Architect Relationship Specialty Start Date End Date Name, MD Hill [address] [place] [phone] PCP - General Family Medicine 03/15/15 [facility] 11/23/24 documented as of this encounter
--- OUTSIDE RECORDS SUMMARY | 2024-12-25 08:09 | XMS_ITS | Encounter Summary ---
Author Organization [employer] Address [address] [facility] 7t [place] [address] Care Team Providers Care Telecommunications Linesworker Name Role Phone Name, Hill HERNANDEZ Primary Care Provider [phone] Reason for Visit * Reason Onset Date Comments triage 07/19/2022 Encounter Details Date Type Department Care Team ([facility] st Contact Info) Description 07/19/2022 Telephone [facility] MEDICINE [address] [place], [place] [phone] Name, MD Hill [address] [place] [address] triage Social History Tobacco Use Types Packs/Day [...] worse The caller accepted this outcome speaks palauan documented in this encounter Plan of Treatment Upcoming Encounters Date Type Department Care Team (Late st Contact Info) Description 03/18/2025 9:45 AM EST Office Visit [facility] MEDICINE [address] [place] [address] Name, MD Hill [address] [place] [address] documented as of this encounter Visit Diagnoses Not on filedocumented in this encounter Additional Health Concerns Assessment Noted Time PHQ-9 Depression Total Score: 19 023 1:35 PM EDT documented as of this encounter Care Teams Telecommunications Linesworker Relationship Specialty Start Date End Date Name, MD Hill [address] [place] [address] PCP - General Family Medicine 03/15/15 [facility] 11/23/24 documented as of this encounter
--- OUTSIDE RECORDS SUMMARY | 2024-12-25 08:09 | XMS_ITS | Encounter Summary ---
Author Organization [employer] Address [address] [place] [address] 7t [place] [address] Care Team Providers Care Wildlife Photographer Name Role Phone Name, Hill HERNANDEZ Primary Care Provider [phone] Encounter Details Date Type Department Care Team (Late st Contact Info) Description 07/30/2022 Abstract [facility] MEDICINE [address] [place] [address] [phone] Name, MD Hill [address] [place] [address] [phone] Social History Tobacco Use Types Packs/Day Years [...] Description 03/18/2025 9:45 AM EST Office Visit [facility] MEDICINE [address] [place] [address] [phone] Name, MD Hill [address] [place] [address] [phone] documented as of this encounter Procedures Procedure [...] documented as of this encounter Care Teams Wildlife Photographer Relationship Specialty Start Date End Date Name, MD Hill [address] [place] [address] PCP - General Family Medicine 03/15/15 [facility] 11/23/24 documented as of this encounter
--- OUTSIDE RECORDS SUMMARY | 2024-12-25 08:09 | XMS_ITS | Encounter Summary ---
Author Organization [employer] Address [address] [facility] 7t [place] [address] Care Team Providers Care Machine Marker Name Role Phone Name, Hill HERNANDEZ Primary Care Provider [phone] Reason for Visit * Reason Onset Date Comments Pre-op Visit 04/25/2023 Encounter Details Date Type Department Care Team ([facility] st Contact Info) Description 04/25/2023 Telephone [facility] MEDICINE [address] [place], [place] [phone] Name, MD Hill [address] [place] [address] Pre-op Visit Social History Tobacco Use Types [...] No Surgeon's name: [facility] name: [facility] Surgeon's office number: [phone] Surgeon's office fax number: [phone] Contact name (person you spoke with): Patricia Last office note from surgeon requested documented in this encounter Plan of Treatment Upcoming Encounters Date Type Department Care Team (Late st Contact Info) Description 03/18/2025 9:45 AM EST Office Visit [facility] MEDICINE [address] [place] [address] Name, MD Hill [address] [place] [address] documented as of this encounter Visit Diagnoses Not on filedocumented in this encounter Additional Health Concerns Assessment Noted Time PHQ-9 Depression Total Score: 0 03/07/19 24 8:57 AM EST documented as of this encounter Care Teams Machine Marker Relationship Specialty Start Date End Date Name, MD Hill [address] [place] [address] PCP - General Family Medicine 03/15/15 [facility] 11/23/24 documented as of this encounter
[2024-12-25 11:55] LABS: Anion Gap 11 (12-20); Blood Urea Nitrogen 27 mg/dL (9-16); Calcium 9.8 mg/dL (8.4-10.2); Carbon Dioxide 27 mmol/L (22-29); Chloride 105 mmol/L (96-108); Estimated Glomerular Filt Rate 57; Potassium 4.2 mmol/L (3.3-5.1); Sodium 139 mmol/L (135-145)
== END 2024-12-25 08:06 | disposition home or self-care (01) ==
LOC: HO.HHCL 08:05
PROVIDERS: PCP Internal Medicine Geriatric Medicine; Visit Provider Internal Medicine Geriatric Medicine
DX: I10 Essential (primary) hypertension (principal)
CPT/HCPCS: 36415; 80048

== ENCOUNTER 2025-01-11 08:43 | Outpatient (AMB) | payer OTHER, SELFPAY ==
--- NOTE | 2025-01-11 09:10 | MHC.OFFVIS ---
Intake Visit Reasons: Bilateral Knee Durolane Injections Intake Note: Azeb is a 79 year old female who presents today for Bilateral Knee Durolane Injections. She reports that she will be going to [place] on saturday. After Injections today patient felt a bit dizzy and had an episode of anxiety associated with pain. She laid down for a bit and was given water. Vitals were taken BP: 119/71 pulse: 50 O2: 94 Manager Contract Required: Yes Manager Contract Language: Gang Punch Operator Name: Juwan Alonso BABY FORMULA WORKER LMN Allergies No Known Allergies Allergy (Verified 12/17/24 14:13) HPI HPI Bilateral Knee Durolane Injections: Details: Azeb is a 79 year old female who presents today for Bilateral Knee Durolane Injections. 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 Site was prepped using aseptic technique. Patient tolerated the procedure well. Shoulders, Hips, Knees, Knee Large Joint Injection : Bilateral Knee Coding Procedure code (CPT) selection complete Assessment & Plan Assessment & Plan (1) Osteoarthritis of knees, bilateral: Code(s): M17.0 - Bilateral primary osteoarthritis of knee Category: Medical Plan: injected Durolane bilateral knees. No complications. May follow up in 3 months. Coding Level of Care Code Est Pt Level 2 (50408) Diagnoses Osteoarthritis of knees, bilateral M17.0 CPT Codes Shoulders, Hips, Knees, - Knee Large Joint Injection : Bilateral Knee ([id number])
== END 2025-01-11 10:02 | disposition home or self-care (01) ==
LOC: HO.HOS 08:44
PROVIDERS: PCP Internal Medicine Geriatric Medicine; Visit Provider Orthopaedic Surgery
DX: M17.0 Bilateral primary osteoarthritis of knee (principal)
CPT/HCPCS: 20610

== ENCOUNTER → 2025-01-11 08:43 | Outpatient (BNVA) | payer OTHER, SELFPAY | PROVIDERS: PCP Internal Medicine Geriatric Medicine; Visit Provider Orthopaedic Surgery | DX: M17.0 Bilateral primary osteoarthritis of knee (principal) | CPT/HCPCS: 20610; J7318 ==

== ENCOUNTER 2025-01-16 20:01 | Emergency (ER) | payer OTHER, SELFPAY ==
--- OUTSIDE RECORDS SUMMARY | 2024-06-09 05:10 | XMS_ITS ---
Author Organization [facility] Address [address] [place] [address] Care Team Providers Care Manager Cash Name Role Phone Name Hill HERNANDEZ Primary Care Provider James Kaur [phone] REASON FOR VISIT Patient presents today for an upper endo Encounters Encounter Location Date Provider Diagnosis [facility] [address] [place] [address] 06/09/2024 James Easton Plan Of Treatment Next Appt Details Provider Name:James Easton , 03/16/2025 10:50:00 AM, [address], [address], [place], [address], Progress Notes * RAFFAELE CHUNG EDOB:[birth year] (79 yo F)Acc No.[id number]:06/09/2024 Progress Notes Patient: RAFFAELE CARR Provider: Curt Easton MD :1945 A ge:79 Y S ex:Female Date:06/09/2024 Address:[address], [place], [place] Pcp:Hill Dickson MD Subjective: * Chief Complaints: * P atient presents today for an upper endo * The named appointment provid er may or may not be the originator of this progress note, and it is not deemed complete until electronically signed by the appointment provider. Sign off status: Pending * Provider: Curt Easton MD Date: 0 06/09/2024 Generated for Tejinder erickson/Andres/eTransmitting on: 1 03/18/2024 10:29 PM EST
--- NOTE | 2025-01-16 | ECG_ITS ---
Test Reason : WEAKNESS Blood Pressure : */* mmHG Vent. Rate : 71 BPM Atrial Rate : 71 BPM P-R Int : 162 ms QRS Dur : 74 ms QT Int : 408 ms P-R-T Axes : 1 -8 80 degrees QTcB Int : 443 ms Normal sinus rhythm Minimal voltage criteria for LVH, may be normal variant ( R in aVL ) Nonspecific T wave abnormality Abnormal ECG When compared with ECG of 01-Jun-2024 09:18, No significant change was found Referred By: Generic ED Physician Electronically Signed By: EDWIN GRAY
[2025-01-16 20:06] VITALS: BP 159/73; PULSE 77; RESP 16; TEMP 37.3; O2SAT 94; BMI 27.4
--- NOTE | 2025-01-16 20:50 | PC.NURSE ---
Assumed care of pt, presents to the ED for weakness and dizziness x5 days, s/p per pt getting Cortisone shots in both her knees, stated that she vomited once, she was awoken by a headache today that she pressure,aaox4, nad, pt is resting in the stretcher currently,
[2025-01-16 21:00] LABS: Hematocrit 40.2 % (37.0-47.0); Hemoglobin 13.4 g/dl (12.0-16.0); Imm Gran Abs Auto 0.02 X10*3/uL (0.00-0.03); Imm Gran Pct Auto 0.2 % (0.0-0.4); Lymphocytes Absolute Auto 0.4 X10*3/uL (1.2-4.9); MANUAL DIFF FLAG SCAN; Mean Corpuscular HGB Conc 33.3 g/dl (31.0-35.0); Mean Corpuscular Hemoglobin 31.8 pg (27.0-33.0); Mean Corpuscular Volume 95.5 fL (80.0-98.0); NRBC Abs Auto 0.000 X10*3/uL (0.0-0.012); NRBC Pct Auto 0.0 /100WBC (0.0-0.2); Platelet Count 188 X10*3/uL (160-400); Red Blood Count 4.21 X10*6/uL (4.20-5.50); SCAN SMEAR FLAG 1; White Blood Count 8.0 X10*3/uL (4.8-10.8)
[2025-01-16 21:05] LABS: Alanine Aminotransferase 12 U/L (0-31); Albumin Level 4.4 g/dL (3.5-5.0); Alkaline Phosphatase 79 U/L (39-117); Anion Gap 14 (12-20); Aspartate Amino Transferase 23 U/L (5-31); Blood Urea Nitrogen 22 mg/dL (9-16); Calcium 9.5 mg/dL (8.4-10.2); Carbon Dioxide 23 mmol/L (22-29); Chloride 105 mmol/L (96-108); Creatinine Clr Calc Pharmacy 56.0; Estimated Glomerular Filt Rate > 60; Potassium 4.1 mmol/L (3.3-5.1); Sodium 138 mmol/L (135-145); Total Protein 7.5 g/dL (6.5-8.0)
[2025-01-16 21:11] LABS: Troponin-I High Sensitivity 5.8 ng/L (<3.5-17.0)
--- OUTSIDE RECORDS SUMMARY | 2025-01-16 22:28 | XMS_ITS ---
Author Name [place], [place]. Socorro Olson Address [address] [place] [address] Phone [phone] [facility] Care Team Providers Care Supervisor Drapery Hanging Name Role Phone Ruth Sen Unavailable [phone] Reason for Referral Not Available Allergies, adverse [...] 2021-12-05 No Data Available OneTouch Delica Plus [id number] Miscellaneous TEST BLOOD SUGAR THREE TIMES DAILY [...] (do not use for phone, instead use 35815-12) [facility] [place] 06/04/2022 Type 2 diabetes mellitus wit h other specified complicationHyperlipidemia, unspecifiedEssential (primary) hypertensionMajor depressive disorder, recurrent, in remission, unspecifiedPersonal history of (healed) traumatic fracture New patient,40-59min; chronic exacerbation, 2 stable chronic or 1 acute illness add add modifier 95 for video (do not use for phone, instead use 29466-22) [facility] [place] 06/04/2022 New patient,40-59min; chronic exacerbation, 2 stable chronic or 1 acute illness add add modifier 95 for video (do not use for phone, instead use 68674-66) [facility] 06/04/2022 New patient,40-59min; chronic exacerbation, 2 stable chronic or 1 acute illness add add modifier 95 for video (do not use for phone, instead use 13926-23) [facility]) 06/04/2022 New patient,40-59min; chronic exacerbation, 2 stable chronic or 1 acute illness add add modifier 95 for video (do not use for phone, instead use 87768-28) [facility] 06/04/2022 New patient,40-59min; chronic exacerbation, 2 stable chronic or 1 acute illness add add modifier 95 for video (do not use for phone, instead use 43543-00) [facility] 06/04/2022 New patient,40-59min; chronic exacerbation, 2 stable chronic or 1 acute illness add add modifier 95 for video (do not use for phone, instead use 17890-70) [facility] 06/04/2022 New patient,40-59min; chronic exacerbation, 2 stable chronic or 1 acute illness add add modifier 95 for video (do not use for phone, instead use 91869-86) [facility] 06/04/2022 Vital Signs Date of Collection Vitals 2022-06-04 10:06:44 Height - 157.48 cmWe ight - 68.04 kgBody Mass Index (BMI) - 27.44 kg/m2 Social History Social History Social History Observation Description Effec tive Time Current Smoking Status Never smoker 2024-12-27 3 Sex Female History of Procedures Procedures Service Procedure code Service date Servicing provider Phone# New patient,40-59min; chronic exacerbation, 2 stable chronic or 1 acute illness add add modifier 95 for video (do not use for phone, instead use 89411-19) 13388 2022-06-04 No Data Available No Data Availa [...] ilable Functional Status Functional Category Effective Dates BRAND SPECIALIST assists with cooking, cl eaning and laundry. [...]
--- OUTSIDE RECORDS SUMMARY | 2025-01-16 22:29 | XMS_ITS | Encounter Summary ---
Author Organization [facility] Address [address] [place] [phone] Care Team Providers Care Dip Unit Operator Name Role Phone Gina Fonseca MD Primary Care Provider Encounter Details Date Type Department Care Team (Late st Contact Info) Description 06/10/2024 Lab Requisition [facility] Lab [address] [facility] [place] [address] Behzad Conway MD [address] [place] [address] [phone] Anemia, unspecified Social History Tobacco Use Types [...] Department Care Team (Late Contact Info) Description 03/30/2025 1:15 PM EST Office Visit Orthopedic Surgery - [place] [address] [phone] Vicente Pearce DPM 175 [facility] [address] [place] [address] documented as of this encounter Visit Diagnoses Diagnosis Anemia, unspecified documented in this encounter Care Teams Dip Unit Operator Relationship Specialty Start Date End Date Gina Fonseca MD [address] [place], [place] PCP - General Internal Medicine 10/16/21 documented as of this encounter
--- OUTSIDE RECORDS SUMMARY | 2025-01-16 22:29 | XMS_ITS | Clinical Summary ---
Author Organization [facility] Address [address] [facility] [address] [place] [phone] Phone Care Team Providers Care Formulation Chemist Name Role Phone Name, Hill HERNANDEZ Primary Care Provider [phone] Allergies No known active allergies Medications metformin [...] topic Medical Devices Not on file Insurance [facility] MEDICARE REPLACEMENT Member Subscriber Plan / Payer (Ef fective 2019-Present) Name:Azeb Kennedy Relation to Subscriber:Self Name:Azeb Kennedy Payer ID:[id number] (NAIC) Group ID:Not on file Type:Medicare Address: [place] [id number] MEDICARE REPLACEMENT [id number] [place] [id number] [facility] MEDICARE REPL[place]EMENT [place] [address] [address] [place] [address] MEDICARE REPLACEMENT [facility] MEDICARE REPLACEMENT MEDICARE [place] [address] MEDICARE REPLACEMENT [place] [id number] Care Teams Formulation Chemist Relationship Specialty Start Date End Date Name, MD Hill [address] [place] [address] PCP - General Geriatric Psychiatry 01/07/20 Additional Source Comments The information contained in this document represents components of the legal health record. It is not the complete legal health record.[facility]
--- OUTSIDE RECORDS SUMMARY | 2025-01-16 22:29 | XMS_ITS | Clinical Summary ---
Author Organization [address] [place] [address] Address [address] [place] [address] Phone Care Team Providers Care Pre School Manager Name Role Phone Gina Fonseca MD [...] Encounters Date Type Department Care Team Description 12/28/2024 1:45 PM EST Office Visit Orthopedic Surgery - [address] [address] Vicente Pearce, DPM Hallux rigidus of left foot (Primary Dx); Follow-up exam; Hallux rigidus of right foot; Dermatophytosis of nail; Difficulty walking; Pain in toe of left foot; Pain in toe of right foot; Diabetic mononeuropathy simplex ([facility] V24, [facility] V28); Type II diabetes mellitus with peripheral circulatory disorder ([facility] V24, [facility] V28) from Last 3 Months Immunizations Immunization Administration Dates Next Due PPD [...] right leg BREAST REDUCTION 2009 Bilateral PROCEDURE: IA BREAST REDUCTION Medical History Medical History Date Comments Unspecified essential hypertension DX:Unspecified essential hypertension DM type 2 (diabetes mellitus , type 2) ([facility] V24, [facility] V28) 12/24/2012 DX:DM type 2 (diabetes hailee itus, type 2) ([facility]) Family History Medical History Relation Name Comments [...] Care Team (Late st Contact Info) Description 03/30/2025 1:15 PM EST Office Visit Orthopedic Surgery - [place] [phone] [phone] Vicente Pearce, DPM [address] [address] Health Maintenance Due Date Last Done Comments [...] 11/15/2008 Diabetes: Blood Sugar Control Test (HGBA1C) 06/14/2025 12/14/2024, 06/04/2024, 03/17/2024, Additional history exists Diabetes: Annual GFR (Glomerular Filtration Rate) 12/25/2025 12/25/2024, 06/11/2024, 06/04/2024, Additional history exists Hypertension/CHF/CAD Annual BMP Blood Test 12/25/2025 12/25/2024, 06/11/2024, 06/04/2024, Additional history exists Cholesterol Screening (Lipid Panel) [...] Name Priority Date/Time Associated Diagnosis Comments XR FOOT 3+ VIEWS LEFT Routine 12/28/2024 1:29 PM EST Follow-up exam COMPREHENSIVE METABOLIC PANEL Routine 06/04/2024 7:34 AM EDT Anemia, unspecified Type 2 diabetes mellitus without complications ([facility] V24, [facility] V28) HEMOGLOBIN A1C Routine 06/04/2024 7:34 AM EDT Anemia, unspecified Type 2 diabetes mellitus without complications ([facility] V24, [facility] V28) SCR MAMMO BI INCL CAD Routine 08/11/2018 1:13 PM EDT Encounter for screening mammogram for malignant neoplasm of breast LIPID PANEL Routine 04/04/2015 URINE ALBUMIN CREATININE RATIO Routine 08/27/2014 HEPATITIS C SCREENING Routine 09/15/2012 from Last 3 Months or Most Recently Relevant to Health Maintenance Results * XR Foot 3+ Views Left (12/28/2024 1:29 PM EST) Anatomical Region Laterality Modality Lower Extremities, Foot Left Computed Radiography Narrative 01/01/2025 2:16 PM EST Left foot 3 views Stable postoperative changes implant intact space maintained of metatarsal phalangeal joint Vicente Pearce DPDior IMG XR PROCEDURES Final R esult * (ABNORMAL) Hemoglobin A1c (06/04/2024 7:34 AM [...] Final Result [facility] [address] [place] [address], * (ABNORMAL) Comprehensive metabolic panel (06/04/2024 7:34 AM EDT) Sodium 139 133 - 145 mmol/L LAB CHEMISTRY METHOD 06/04/2024 10:53 AM [facility] Potassium 4.6 3.5 - 5.5 mmol/L LAB CHEMISTRY METHOD 06/04/2024 10:53 AM [facility] Chloride 105 96 - 110 mmol/L LAB CHEMISTRY METHOD 06/04/2024 10:53 AM [facility] CO2 30 [...] [facility] Comment:Calculation based on the Chronic [...] 10:53 AM EDT [facility] ALT (SGPT) 38 10 - 60 unit/L LAB CHEMISTRY METHOD 06/04/2024 10:53 AM EDT [facility] Alkaline Phosphatase 112 42 - 121 unit/L LAB CHEMISTRY METHOD 06/04/2024 10:53 AM EDT [facility] Total Protein 7.3 6.0 - 8.0 g/dL LAB CHEMISTRY METHOD 06/04/2024 10:53 AM EDT [facility] Albumin 3.7 3.2 - 5.0 g/dL LAB CHEMISTRY METHOD 06/04/2024 10:53 AM EDT [facility] Total Bilirubin 0.4 0.0 - 1.4 mg/dL LAB CHEMISTRY METHOD 06/04/2024 10:53 AM EDT [facility] Blood Venous blood specimen / Unknown Venipuncture / Unknown 06/04/2024 7:34 AM EDT 06/04/2024 9:59 AM EDT Behzad Conway MD LAB BLOOD ORDERABLES Final Result [facility] [address] [place] [address], * SCR MAMMO BI INCL CAD (08/11/2018 [...] Breast cancer risk category Low (<15%) Result [facility] Hill Dickson MD IMG XR PROCEDURES Final Result * (ABNORMAL) Lipid panel (04/04/2015) [facility] LDL/HDL Ratio 4 0 - 4 Triglycerides 223(A) 0 - 150 mg/dL Cholesterol 194 0 - 200 mg/dL HDL 1(A) >=40 mg/dL LDL Cholesterol 96 0 - 100 mg/dL Blood Venous blood specimen / Unknown Result [facility] Provider LAB BLOOD ORDERABLES Lina l Result * Urine Albumin Creatinine Ratio (08/27/2014) Pathologist [facility] Urine Albumin Creatinine Ratio abstracted Result [facility] Provider HEALTH MAINTENANCE Final Result * Hepatitis C Screening (09/15/2012) [facility] Hepatitis C Screening abstracted Result [facility] Grace HERNANDEZ HEALTH MAINTENANCE Final Result from Last 3 Months or Most Recently Relevant to Health Maintenance Insurance [facility] MEDICARE Member Subscriber Plan / Payer (Ef fective 2023-Present) Name:Azeb Kennedy Relation to Subscriber:Self Name:Azeb Kennedy Payer ID:[id number] Group ID:[id number] Type:Not on file Address: [place] [address] [address] [phone] Care Teams Pre School Manager Relationship Specialty Start Date End Date Gina Fonseca MD [address] [place], [place] PCP - General Internal Medicine 10/16/21
--- OUTSIDE RECORDS SUMMARY | 2025-01-16 22:29 | XMS_ITS | Encounter Summary ---
Author Organization [facility] Address [id number] [place] [phone] Care Team Providers Care Supervisor Fusing Room Name Role Phone Gina Fonseca MD Primary Care Provider [phone] Encounter Details Date Type Department Care Team (Late Contact Info) Description 06/04/2024 Lab Requisition [facility] [address] [facility] [place] [address] Behzad Conway MD [address] [place] [phone] Anemia, unspecified; Type 2 diabetes mellitus without [...] PM EST Office Visit Orthopedic Surgery - [place] [address] [phone] Vicente Pearce DPM [address] [phone] documented as of this encounter Procedures Procedure Name Priority Date/Time Associated Diagnosis Comments COMPLETE BLOOD COUNT Routine 06/04/2024 7:34 AM EDT Anemia, unspecified Type 2 diabetes mellitus without complications (CMS/HCC V24, CMS/HCC V28) HEMOGLOBIN A1C Routine 06/04/2024 7:34 AM EDT Anemia, unspecified Type 2 diabetes mellitus without complications ([facility] V24, [facility] V28) COMPREHENSIVE METABOLIC PANEL Routine 06/04/2024 7:34 AM EDT Anemia, unspecified Type 2 diabetes mellitus without complications ([facility] V24, [facility] V28) documented in this encounter Results * [...] ORDERABLES Final Result [facility] [address] [place] [address], * (ABNORMAL) Comprehensive metabolic panel (06/04/2024 7:34 AM EDT) [facility] Sodium 139 133 - 145 mmol/L LAB CHEMISTRY METHOD 06/04/2024 10:53 AM EDT [facility] Potassium 4.6 3.5 - 5.5 mmol/L LAB CHEMISTRY METHOD 06/04/2024 10:53 AM EDT [facility] Chloride 105 96 - 110 mmol/L LAB CHEMISTRY METHOD 06/04/2024 10:53 AM EDT [facility] CO2 30 21 - 32 [...] [facility] Comment:Calculation based on the [...] 10:53 AM [facility] Alkaline Phosphatase 112 42 - 121 unit/L LAB CHEMISTRY METHOD 06/04/2024 10:53 AM [facility] Total Protein 7.3 6.0 - 8.0 g/dL LAB CHEMISTRY METHOD 06/04/2024 10:53 AM [facility] Albumin 3.7 3.2 - 5.0 g/dL LAB CHEMISTRY METHOD 06/04/2024 10:53 AM [facility] Total Bilirubin 0.4 0.0 - 1.4 mg/dL LAB CHEMISTRY METHOD 06/04/2024 10:53 AM EDT [facility] Blood Venous blood specimen / Unknown Venipuncture / Unknown 06/04/2024 7:34 AM EDT 06/04/2024 9:59 AM EDT us Behzad Conway MD LAB BLOOD ORDERABLES Final Result [facility] [address] [place] [address], * (ABNORMAL) Complete blood count (06/04/2024 7:34 [...] LAB HEMETOLOGY METHOD 06/04/2024 10:31 AM EDT [facility] Platelets 200 130 - 400 K/mcL LAB HEMETOLOGY METHOD 06/04/2024 10:31 AM EDT [facility] MPV 11.4(H) 7.0 - 11.0 FL LAB HEMETOLOGY METHOD 06/04/2024 10:31 AM EDT [facility] NRBC 0.0 <1.0 % LAB HEMETOLOGY METHOD 06/04/2024 10:31 AM EDT [facility] NRBC Absolute 0.00 <0.10 K/mcL LAB HEMETOLOGY METHOD 06/04/2024 10:31 AM EDT [facility] Blood Venous blood specimen / Unknown Venipuncture / Unknown 06/04/2024 7:34 AM EDT 06/04/2024 9:59 AM EDT us Behzad Conway MD LAB BLOOD ORDERABLES Final Result [facility] [address] [place] [address], documented in this encounter Visit Diagnoses Diagnosis Anemia, unspecified Type 2 diabetes mellitus without complications (CMS/HCC V24, CMS/HCC V28) documented in this encounter Care Teams Supervisor Fusing Room Relationship Specialty Start Date End Date Gina Fonseca MD [address] [place] [address] PCP - General Internal Medicine 10/16/21 documented as of this encounter
--- OUTSIDE RECORDS SUMMARY | 2025-01-16 22:29 | XMS_ITS | Patient Health Record ---
Author Organization [facility] Address [address] [place] [address] Care Team Providers Care Corrections Officer Name Role Phone Name Hill HERNANDEZ Primary Care Provider James Kaur [phone] Allergies No Known Allergies Reason For Referral No Information Medications Medication SIG (Take, Route, Frequency, Duration) Notes Start Date End Date Status Amitriptyline HCl 25 MG Tablet 1 tablet at bedtime Orally Once a day Active Tylenol 8 Hour Arthritis Pain 650 MG Tablet Extended Release 2 tablets as needed Orally every 8 hrs Active Omeprazole 20 MG Capsule Delayed Release TAKE 1 CAPSULE BY MOUTH DAILY IN THE MORNING Oral; Duration: 30 Active Pravastatin Sodium 10 MG Tablet 1 tablet Orally Once a day Active Fish Oil Active Lisinopril 2.5 MG Tablet 1 tablet Orally Once a day Active Melatonin Active metFORMIN HCl 850 MG Tablet 1 tablet wit h a meal Orally Once a day Active Immunizations Vaccine Route Administration Date Status Comme nts Influenza Unknown 06/04/2019 Refused Influenza Unknown 12/21/2020 Refused Social History Social History Additional Details Category Social Info Options Details Miscellaneous: Marital status: single Occupation: retired Section Notes: Nonsmoker; occ. alcohol Nonsmoker; occ. alcohol Nonsmoker; occ. alcohol Nonsmoker; occ. alcohol Problems Problem Type SNOMED Code ICD Code Onset Dates Problem Status W/U Status Risk Notes Problem Colon cancer screening (467439239) Colon cancer screening (Z12.11) Active confirmed Problem Gastroesophageal reflux disease without esophagitis (419774686) Gastroesophageal reflux disease without esophagitis (K21.9) Active confirmed Problem Gastroesophageal reflux disease (486828810) Gastroesophageal reflux disease, esophagitis presence not specified (K21.9) Active confirmed Problem Constipation (86598705) Constipation, unspecified constipation type (K59.00) Active confirmed Encounters Encounter Location Date Provider Diagnosis [facility] [address] [place] [address] 05/21/2024 James Easton [facility] [address] [place] [address] 06/09/2024 James Easton [facility] [address] [place] [address] 11/02/2024 James Easton Plan Of Treatment Future Test Test Name Order Date COLONOSCOPY 12/02/2013 Next Appt Details Provider Name:James Easton , 03/16/2025 10:50:00 AM, [address], [address], [place], [address], Insurance Providers Payer Name Payer Address Payer Phone Subscriber Number Group Number Insured Name Patient Relationship to Insured Coverage Start Date Coverage End Date [facility] [address] [place] [phone] [id number] [id number] CHUNG Self - patient is the [...]
--- NOTE | 2025-01-16 22:42 | ED.GENADULT ---
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 The patient reports the headache is improving slightly but attributes it to having had no food or coffee today. She denies recent fever, cough, or upper-respiratory illness and has not been around anyone sick. She denies stiff neck. She notes markedly decreased oral intake today and received anti-emetic/analgesic medication intravenously in the ED but is unsure of benefit. Earlier this month she received intra-articular injections to both knees and a cortisone injection to a previously fractured shoulder; since the knee injections she has had severe bilateral knee pain with inability to ambulate and reports subjective leg weakness. She reports no redness or swelling of the knees. She has a history of multiple prior falls, the most recent about one month ago. She reports that her shoulder was previously fractured due to multiple falls, but is unsure of the exact timing. She also endorses intermittent lower back pain for the last two weeks. She denies diarrhea or hematochezia. Related Data Home Medications ?Medication ?Instructions ?Recorded ?Confirmed lisinopril 2.5 mg tablet 2.5 mg PO DAILY 05/25/20 12/17/24 melatonin 5 mg tablet 5 mg PO BEDTIME 05/25/20 12/17/24 pravastatin 10 mg tablet 10 mg PO DAILY 05/25/20 12/17/24 amitriptyline 50 mg tablet 50 mg PO BEDTIME 06/01/24 12/17/24 magnesium oxide 400 mg PO DAILY 06/01/24 12/17/24 metformin 850 mg tablet 850 mg PO BID 06/01/24 12/17/24 omeprazole 20 mg capsule,delayed 20 mg PO DAILY@0630 06/01/24 12/17/24 release Previous Rx's ?Medication ?Instructions ?Recorded meloxicam 15 mg tablet 15 mg PO DAILY PRN Pain #30 tabs 11/10/24 dljenstjtl-lbomsiafhcbrd-gpaffzih 1 cap PO TID PRN headache #10 caps 01/17/25 50 mg-300 mg-40 mg capsule (Fioricet) Allergies Allergy/AdvReac Type Severity Reaction Status Date / Time No Known Allergies Allergy Verified 01/16/25 20:14 Review of Systems Review of Systems: as per HPI, full review of systems performed and negative but for the above mentioned pertinent positives and negatives. 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 SKIN: Normal skin color for ethnicity, warm, dry, no rashes noted. HEENT:? Normocephalic, atraumatic, no stridor, dry mucous membranes, dentition intact, EOMI. NECK: Soft, supple, full ROM, midline structures nontender, no step-offs, no deformities, no lymphadenopathy. CHEST: Heart regular rhythm, no murmurs, symmetric chest rise and fall. PULMONARY: Clear to auscultation bilaterally, diminished at the bases, no labored breathing, no wheezes/rhales/rhonchi. ABDOMINAL: Soft, nondistended, nontender, positive bowel sounds in all quadrants. : Deferred. MUSCULOSKELETAL: Normal tone, full range of motion, no deformities, no peripheral edema. NEURO: Alert and oriented x3, CN II through XII intact, equal strength and sensation bilateral upper and lower extremities, no focal neurologic deficits.? PSYCHIATRIC: Flat affect, fluid speech, good eye contact and appropriate demeanor. Vital Signs: Vital Signs - 24 hr 01/16/25 20:06 01/17/25 00:48 01/17/25 01:10 Temperature 99.2 F 97.8 F 97.8 F Pulse Rate 77 67 67 Respiratory Rate 16 18 18 Blood Pressure 159/73 H 151/80 H 151/80 H Pulse Oximetry 94 97 97 Oxygen Delivery Method Room Air Room Air Room Air BMI result Body Mass Index 27.4 Medications Administered Discontinued Medications Generic Name Dose Route Start Last Admin Trade Name Renetta PRN Reason Stop Dose Admin Lactated Ringer's 1,000 mls @ 999 mls/hr 01/16/25 22:51 01/17/25 00:04 Lr IV 01/16/25 23:51 Infused .Q1H1M ONE Infusion Metoclopramide HCl 10 mg 01/16/25 22:51 01/16/25 23:02 Metoclopramide Hcl 10 Mg/2 Ml Vial IVPUSH 01/16/25 22:52 10 mg ONCE ONE Administration Medical Decision Making Medical Decision Making MDM Narrative: 79-year-old female with acute-onset headache and dizziness, bilateral knee pain/weakness after recent intra-articular steroid injections, nausea with decreased oral intake, and chronic lower back pain. Initial laboratory studies unremarkable; viral testing negative. Patient wishes to be discharged home if improved and able to ambulate. Problem #1: Acute headache with dizziness Assessment: Onset this morning; improving. No ?red flag? features elicited (no fever, stiff neck, focal neuro deficits). Likely multifactorial including dehydration/caffeine withdrawal versus medication-responsive benign etiology. Plan: Symptomatic treatment provided with IV medication for headache/nausea. Await flu/COVID results to rule out infectious etiology. Discharge once ambulating safely and symptoms adequately controlled. Problem #2: Severe bilateral knee pain and leg weakness post steroid injections Assessment: Acute exacerbation of knee pain immediately following intra-articular injections; denies redness/swelling low suspicion for septic joint; unable to ambulate presently. Plan: Monitor ambulation ability in ED. If pain improves sufficiently to ambulate and no concerning signs of septic joint, patient to discharge home. Problem #3: Nausea and decreased oral intake Assessment: Associated with current illness; received anti-emetic IV without clear improvement. Plan: Continue anti-emetic therapy as needed. Problem #4: Chronic low back pain Assessment: Two-week history; unchanged in ED; no radicular symptoms detailed. Plan: No acute intervention in ED today. Chronic Conditions: Diabetes mellitus Hypertension Gastroesophageal reflux disease Disposition: Patient to be discharged home via arranged transportation once able to ambulate safely; provide return precautions and follow-up instructions as above. Differential Diagnosis Differential Diagnoses: The differential diagnosis associated with the presentation includes (as above) Lab Data MDM Lab Attestation statement: I reviewed the patient's lab results. 01/16/25 20:45 01/16/25 20:45 Labs: Lab Results 01/16/25 01/16/25 Range/Units 20:45 23:30 WBC 8.0 (4.8-10.8) X10*3/uL RBC 4.21 (4.20-5.50) X10*6/uL Hgb 13.4 (12.0-16.0) g/dl Hct 40.2 (37.0-47.0) % MCV 95.5 (80.0-98.0) fL MCH 31.8 (27.0-33.0) pg MCHC 33.3 (31.0-35.0) g/dl RDW 12.6 (11.0-16.0) % Plt Count 188 (160-400) X10*3/uL MPV 10.6 (9.4-12.3) fL Immature Gran % (Auto) 0.2 (0.0-0.4) % Neut % (Auto) 90.5 H (45-73) % Lymph % (Auto) 4.6 L (20-40) % Day % (Auto) 4.4 (2-11) % Eos % (Auto) 0.1 (0-4) % Baso % (Auto) 0.2 (0-2) % Lymph # (Auto) 0.4 L (1.2-4.9) X10*3/uL Day # (Auto) 0.4 (0.1-1.2) X10*3/uL Eos # (Auto) 0.0 (0.0-0.4) X10*3/uL Baso # (Auto) 0.0 (0.0-0.2) X10*3/uL Abs Immat Gran (auto) 0.02 (0.00-0.03) X10*3/uL Absolute Neuts (auto) 7.3 (2.0-8.3) x10*3/uL Absolute Nucleated RBC 0.000 (0.0-0.012) X10*3/uL Nucleated RBC % (auto) 0.0 (0.0-0.2) /100WBC Smear Tech's Comments VERIFIED Sodium 138 (135-145) mmol/L Potassium 4.1 (3.3-5.1) mmol/L Chloride 105 (96-108) mmol/L Carbon Dioxide 23 (22-29) mmol/L Anion Gap 14 (12-20) BUN 22 H (9-16) mg/dL Creatinine 0.76 (0.5-1.4) mg/dL Estim Creat Clear Calc 56.0 Estimated GFR > 60 Random Glucose 140 H (60-115) mg/dL Calcium 9.5 (8.4-10.2) mg/dL Total Bilirubin 0.5 (0.0-1.0) mg/dL AST 23 (5-31) U/L ALT 12 (0-31) U/L Alkaline Phosphatase 79 (39-117) U/L Troponin I High Sens 5.8 D (<3.5-17.0) ng/L Total Protein 7.5 (6.5-8.0) g/dL Albumin 4.4 (3.5-5.0) g/dL Influenza Type A (PCR) NEGATIVE (Negative) Influenza Type B (PCR) NEGATIVE (Negative) RSV RNA Qual (PCR) NEGATIVE (Negative) SARS-CoV-2 RNA (RT-PCR) NEGATIVE (Negative) Independent Historian Clinical information obtained from an independent historian. History obtained from or confirmed by: EMS External Record Review External record reviewed: Inpatient record Prescription Management I considered prescription management with: Pain Medication Chronic Conditions Patient?s care impacted by: Diabetes and Hypertension Social Determinants Patient?s care significantly limited by Social Determinants of Health including: Problems related to primary support group and Other Social Determinant of Health Discharge Plan Discharge Clinical Impression: Migraine headache, Acute dehydration Patient Disposition: Home, Self-Care Instructions: Dehydration (ED), Migraine Headache (ED) Additional Instructions: Return to the emergency room with any new or worsening symptoms including: Worsening headaches associated with fever greater than 100? or stiff neck, numbness/tingling/weakness of your arms or legs, any new symptom that concerns you. Call 911 with any medical emergency. Use Fioricet as needed for headaches. This medication will make you drowsy so do not drive while using it. Prescriptions: New knyuzcuiad-ozwhpjpzzolql-lpfx [Fioricet] 50-300-40 mg capsule 1 cap PO TID PRN (Reason: headache) Qty: 10 0RF No Action meloxicam 15 mg tablet 15 mg PO DAILY PRN (Reason: Pain) Qty: 30 2RF metformin 850 mg tablet 850 mg PO BID amitriptyline 50 mg tablet 50 mg PO BEDTIME omeprazole 20 mg capsule,delayed release(DR/EC) 20 mg PO DAILY@0630 magnesium oxide 400 mg magnesium Tablet 400 mg PO DAILY melatonin 5 mg tablet 5 mg PO BEDTIME pravastatin 10 mg tablet 10 mg PO DAILY lisinopril 2.5 mg tablet 2.5 mg PO DAILY Interventions: ED Discharge Assessment Last Done: 01/17/25 01:10 Discharge Date/Time: 01/17/25 01:12 Print Language: Icelandic
[2025-01-16] MEDS: Lactated Ringers 1,000 ML 999 ML IV (23:02)
[2025-01-17 00:13] LABS: Resp Syncy Virus RNA Qual PCR NEGATIVE (Negative); SARS COV2 PCR INHOUSE NEGATIVE (Negative)
[2025-01-17 00:48] VITALS: BP 151/80; PULSE 67; RESP 18; TEMP 36.6; O2SAT 97
[2025-01-17 01:10] VITALS: BP 151/80; PULSE 67; RESP 18; TEMP 36.6; O2SAT 97
== END 2025-01-17 01:12 | disposition home or self-care (01) ==
PROVIDERS: Emergency Provider Emergency Medicine; PCP Internal Medicine Geriatric Medicine
DX: G43.909 Migraine, unspecified, not intractable, without status migrainosus (principal); E86.0 Dehydration; R42 Dizziness and giddiness; Z03.818 Encounter for observation for suspected exposure to other biological agents ruled out; R94.31 Abnormal electrocardiogram [ECG] [EKG]; E11.9 Type 2 diabetes mellitus without complications; K21.9 Gastro-esophageal reflux disease without esophagitis; I10 Essential (primary) hypertension; M25.561 Pain in right knee; M25.562 Pain in left knee
CPT/HCPCS: 36415; 80053; 84484; 85025; 87637; 93005; 96361; 96374; 99284; 99285; J2765; J7120

== ENCOUNTER → 2025-01-16 20:13 | Outpatient (BNV) | payer OTHER, SELFPAY | PROVIDERS: Emergency Provider Emergency Medicine; PCP Internal Medicine Geriatric Medicine; Visit Provider Internal Medicine | DX: R94.31 Abnormal electrocardiogram [ECG] [EKG] (principal); R53.1 Weakness | CPT/HCPCS: 93010 ==